=== PATIENT | female | born 1935 | race Caucasian/White ===

== ENCOUNTER 2017-09-29 17:42 | Emergency (ER) | payer MEDICARE, OTHER, SELFPAY ==
[2017-09-29 17:43] VITALS: BP 149/72; PULSE 95; RESP 16; TEMP 36.7; O2SAT 94; BMI 25.9
--- NOTE | 2017-09-29 19:54 | CT_ITS ---
STUDY: CT ABDOMEN AND PELVIS WITHOUT CONTRAST REASON FOR EXAM: Female, 82 years old. Nausea, vomiting and diarrhea. RADIATION DOSAGE (If Supplied By Facility): CTDIvol = ( 8.50 ) mGy, DLP = ( 420.39 ) mGycm TECHNIQUE: Transaxial images were obtained from the dome of the diaphragm to the symphysis pubis without oral contrast, and without intravenous contrast. Sagittal and coronal images were reconstructed. Individualized dose optimization techniques were used for this CT. COMPARISON: None. FINDINGS: The visualized lung bases are unremarkable. There are coronary artery calcifications present. Normal liver. There is non-visualization of the gallbladder, which may be secondary to either contraction or a prior cholecystectomy. Normal spleen. Normal pancreas. Normal bilateral adrenal glands. Normal right kidney. Normal left kidney. Normal visualized stomach. Normal small intestine. There are multiple colonic diverticula consistent with diverticulosis. There is non-visualization of the appendix. There is diffuse atherosclerotic calcification of the abdominal aorta, without a demonstrated aneurysm. Normal inferior vena cava. Normal retroperitoneum. Normal urinary bladder. Normal abdominal wall. There are diffuse degenerative changes of the visualized lumbar spine. CT/Abdomen/Pelvis without Cont IMPRESSION: Colonic diverticulosis is evidence of diverticulitis. Atherosclerosis. Electronically Signed: Carmina Wolf MD at 20:48 EDT Tel , Service support ,
--- NOTE | 2017-09-29 19:56 | ED.DCSUM_ITS ---
- ER Visit Summary Date of Service: 09/29/17 Chief Complaint: Vomiting and diarrhea History of Present Illness: The patient is a 82 F who presents for 2 days of vomiting and diarrhea. Patient states every time she takes in any oral intake, including water, she has vomiting and/or diarrhea. She is unable to eat or drink for several hours because of this. She was evaluated by her doctor and sent in for concern for dehydration. Patient denies any abdominal pain, chest pain or shortness of breath. No fever. Decreased urine output. History of cholecystectomy but otherwise denies any abdominal surgeries. Physical Examination: Vital signs: afebrile, hemodynamically stable, no hypoxia on room air General: well nourished, well developed, in no distress Skin: warm, dry, no rash, no pallor HEENT: normocephalic and atraumatic; PERRL, EOMI, moist mucous membranes Cardiovascular: regular rate and rhythm without murmurs, no peripheral edema, 2 + pulses all distal extremities Respiratory: No increased work of breathing, lungs are clear to auscultation bilaterally, no rales, rhonchi or wheezing Abdominal: Abdomen is soft, nontender with normoactive bowel sounds, no guarding or rebound, no masses MSK: Moves all extremities, no deformities, normal strength Neuro: Awake and alert, oriented ?4. No facial droop, sensation and motor function intact and symmetric Test Results: Abnormal Lab Results 09/29/17 09/29/17 09/29/17 19:30 19:30 20:05 WBC 5.5 RBC 4.58 Hgb 13.8 Hct 43.3 MCV 94.5 MCH 30.1 MCHC 31.9 L RDW 13.5 RDW Differential 46.6 H Plt Count 212 MPV 11.2 Immature Gran % (Auto) 0.200 Neut % (Auto) 64.5 Lymph % (Auto) 17.4 L [place] % (Auto) 17.2 H Eos % (Auto) 0.5 Baso % (Auto) 0.2 Absolute Neuts (auto) 3.6 Absolute Lymphs (auto) 0.96 Total Counted Not Reportable Sodium 139 Potassium 3.2 L Chloride 103 Carbon Dioxide 26.0 Anion Gap 10 BUN 26 H Creatinine 0.93 Estim Creat Clear Calc 42.69 Est GFR (MDRD) Af Amer 74 Est GFR (MDRD) Non-Af 61 BUN/Creatinine Ratio 27.8 H Glucose 91 Lactic Acid 1.3 Calcium 8.2 L Total Bilirubin 0.80 AST 25 ALT 21 Alkaline Phosphatase 79 Total Protein 6.5 Albumin 3.3 Globulin 3.2 Albumin/Globulin Ratio 1.0 Lipase 54 L Urine Color Urine Clarity Urine pH Ur Specific [place] Urine Protein Urine Glucose (UA) Urine Ketones Urine Occult Blood Urine Nitrite Urine Bilirubin Urine Urobilinogen Ur Leukocyte Esterase Urine RBC Urine WBC Ur Squamous Epith Cells Urine Bacteria Urine Mucus 09/29/17 21:00 WBC RBC Hgb Hct MCV MCH MCHC RDW RDW Differential Plt Count MPV Immature Gran % (Auto) Neut % (Auto) Lymph % (Auto) [place] % (Auto) Eos % (Auto) Baso % (Auto) Absolute Neuts (auto) Absolute Lymphs (auto) Total Counted Sodium Potassium Chloride Carbon Dioxide Anion Gap BUN Creatinine Estim Creat Clear Calc Est GFR (MDRD) Af Amer Est GFR (MDRD) Non-Af BUN/Creatinine Ratio Glucose Lactic Acid Calcium Total Bilirubin AST ALT Alkaline Phosphatase Total Protein Albumin Globulin Albumin/Globulin Ratio Lipase Urine Color Yellow Urine Clarity Clear Urine pH 6.0 Ur Specific [place] 1.020 Urine Protein 15 H Urine Glucose (UA) Normal Urine Ketones 150 H Urine Occult Blood 25 H Urine Nitrite Negative Urine Bilirubin Negative Urine Urobilinogen Normal Ur Leukocyte Esterase 500 H Urine RBC 0-5 SEEN Urine WBC 0-5 SEEN Ur Squamous Epith Cells 0-5 SEEN Urine Bacteria 0 SEEN Urine Mucus 1+ Emergency Department Course and Treatment: Patient was given IV fluids. Workup was performed given her age and abdominal complaint to look for any acute pathology. CT scan of the abdomen and pelvis showed no acute findings. Patient had no leukocytosis, no electrolyte derangements, but did have BUN to creatinine ratio consistent with dehydration. Patient also had ketones in her urine. No evidence of UTI. Lactate normal. After IV fluids patient was feeling better and was given a p.o. challenge. She was able to tolerate fluids without any episodes of vomiting or diarrhea. She felt better and was discharged home in improved condition. Treatment Plan: [] Disposition: [] Impression: Dehydration, vomiting and diarrhea illness This note was generated with [employer] dictation software. It may contain incorrect words, spelling, and punctuation that were not noted in review of the chart prior to signing ED Disposition - Plan for ED Patient: Disposition: Home or Assisted Living Chief Complaint: Nausea/Vomiting/Diarrhea Instructions: ED Dehydration, ED Diet Vomiting Diarrhea Prescriptions: Ondansetron [Zofran Odt] 4 mg PO Q8H PRN PRN #10 tab PRN Reason: Nausea Referrals: Bang Manriquez MD [Primary Care Provider] - 1-2 Days if not improving Additional Instructions: You may use the ondansetron as needed for nausea and vomiting. Please drink plenty of fluids to stay hydrated. If you have any worsening of your symptoms, please see your doctor or return to the emergency department immediately for another evaluation.
[2017-09-29] MEDS: 0.9% Normal Saline 1,000 ML 1000 ML IV (20:03)
[2017-09-29 20:04] VITALS: BP 128/69; PULSE 84; RESP 16; O2SAT 95
[2017-09-29 20:39] LABS: Absolute Lymphocyte Count 0.96 X10^3/ul (0.83-4.51); Absolute Neutrophil Count 3.6 X10^3/uL (2.0-7.7); Basophil# 0.01 X10^3/uL; Basophil% 0.2 % (0-1); Eosinophil# 0.03 X10^3/uL; Eosinophils% 0.5 % (0-5); Hematocrit 43.3 % (37-47); Hemoglobin 13.8 g/dl (12.0-15.0); Lymphocyte # 0.96 X10^3/ul (4.0); Lymphocyte % 17.4 % (19-41); Mean Corp Hgb Conc 31.9 g/gl (32-36); Mean Corpuscular Hgb 30.1 pg (27.0-32.0); Mean Corpuscular Volume 94.5 fL (81-99); Mean Platelet Vol. 11.2 fl (6.2-12.0); Monocyte# 0.95 X10^3/uL; Monocyte% 17.2 % (0-10); Neutrophil # 3.56 X10^3/uL (2.7-7.7); Neutrophil % 64.5 % (47-70); Platelet Count 212 K/mm3 (150-450); RBC Distribution Width CV 13.5 % (11.6-14.6); RBC Distribution Width SD 46.6 fl (35.1-43.9); Red Blood Count 4.58 M/mm3 (4.2-5.4); White Blood Count 5.5 K/mm3 (4.4-11.0)
[2017-09-29 20:42] LABS: POSITIVE COUNT NO; POSITIVE DIFFERENTIAL NO; POSITIVE MORPHOLOGY NO
[2017-09-29 20:47] LABS: AST(SGOT) 25 U/L (15-37); Alanine Aminotransfer ALT/SGPT 21 U/L (13-56); Albumin, Serum 3.3 g/dL (3.2-5.0); Alkaline Phosphatase 79 U/L (45-117); Anion Gap 10 (5-15); BUN 26 mg/dL (7-18); BUN/Creat Ratio 27.8 RATIO (10-20); Calcium,Total 8.2 mg/dL (8.5-10.1); Chloride 103 mmol/L (98-107); Creatinine, Serum 0.93 mg/dL (0.55-1.02); EST Glomerular Filtration Rate 61 mL/min (>60); Est Glom Filt Rate - Afr Amer 74 mL/min (>60); Estimated Creatinine Clearance 42.69 ml/min; Globulin 3.2 g/dL (2.2-4.2); Glucose 91 mg/dL (74-106); Lipase 54 U/L (73-393); Potassium 3.2 mmol/L (3.5-5.1); Protein, Total 6.5 g/dL (6.4-8.2); Sodium Level 139 mmol/L (136-145)
[2017-09-29 20:56] LABS: Lactic Acid 1.3 mmol/L (0.4-2.0)
[2017-09-29 21:06] LABS: Bacteria 0 SEEN /hpf (None Seen)
[2017-09-29 21:07] LABS: Color, Urine Yellow (Yellow); Glucose, Dipstick Normal (Normal); Leukocyte Esterase-Dipstick 500 /ul (Negative); Nitrite-Dipstick Negative (Negative); Occult Blood-Urine 25 /ul (Negative); Protein-Dipstick 15 mg/dl (Negative); Urine Bilirubin Dipstick Negative (Negative); Urine Clarity Clear (Clear); Urine Urobilinogen Normal (Normal)
[2017-09-29 21:12] LABS: Ketone-Dipstick 150 mg/dl (Negative)
[2017-09-29 21:16] LABS: Mucous, Urine 1+ /hpf (<or=2+); Red Blood Cells-Urine 0-5 SEEN /hpf (0-5); Squamous Epithelial Cells - UA 0-5 SEEN /hpf (5-10); White Blood Cells 0-5 SEEN /hpf (0-5)
[2017-09-29 22:05] VITALS: BP 148/68; PULSE 89; RESP 16; O2SAT 93
--- NOTE | 2017-09-29 22:21 | ED.DEP ---
ED Disposition - Plan for ED Patient: Disposition: Home or Assisted Living Chief Complaint: Nausea/Vomiting/Diarrhea Instructions: ED Diet Vomiting Diarrhea, ED Dehydration Prescriptions: Ondansetron [Zofran Odt] 4 mg PO Q8H PRN PRN #10 tab PRN Reason: Nausea Referrals: Bang Manriquez MD [Primary Care Provider] - 1-2 Days if not improving Additional Instructions: You may use the ondansetron as needed for nausea and vomiting. Please drink plenty of fluids to stay hydrated. If you have any worsening of your symptoms, please see your doctor or return to the emergency department immediately for another evaluation.
== END 2017-09-29 22:34 | disposition home or self-care (01) ==
PROVIDERS: Emergency Provider Emergency Medicine; Family Provider Family Medicine; PCP Family Medicine
DX: K52.9 Noninfective gastroenteritis and colitis, unspecified (principal); E86.0 Dehydration; R11.2 Nausea with vomiting, unspecified; Z79.899 Other long term (current) drug therapy
CPT/HCPCS: 74176; 80053; 81001; 83605; 83690; 85025; 87077; 87086; 87088; 87186; 96360; 99284; A4216

== ENCOUNTER → 2018-11-17 | Outpatient (CLI) | payer MEDICARE, OTHER, SELFPAY ==
--- NOTE | 2018-11-17 10:55 | ART_ITS ---
Reason For Study: PVD Procedure A bilateral lower extremity continuous wave Doppler with analog waveform analysis,segmental pressures,and ankle brachial indexes without exercise. Left Segmental Pressures Left brachial= 174mmHg. Left posterior tibial artery = 181mmHg. Left dorsalis pedis artery = 166mmHg. The left dorsalis pedis waveforms are triphasic. The left posterior tibial artery waveforms are triphasic. Right Segmental Pressures Right brachial= 172mmHg. Right posterior tibial artery = 186mmHg. Right dorsalis pedis artery = 181mmHg. The right dorsalis pedis waveforms are triphasic. The right posterior tibial artery waveforms are triphasic. Indices The right ankle brachial index by the dorsalis pedis is 1.04. The right ankle brachial index by the posterior tibial artery is 1.07. The left ankle brachial index by the dorsalis pedis is 0.95. The left ankle brachial index by the posterior tibial artery is 1.04. Interpretation Summary Triphasic Doppler waveforms are noted at ankle level bilaterally. Pulse-volume recording waveform amplitudes are satisfactory at all levels bilaterally, including low-thigh, calf, ankle, and digital levels. Resting ankle-brachial indices are normal bilaterally. There is no evidence of significant arterial occlusive disease in the lower extremities bilaterally. Ordering Physician: Zora Borja Referring Physician: Bang Manriquez Performed By: Clary Baca RVMelanie
--- NOTE | 2018-11-17 10:55 | VDLE_ITS ---
Reason For Study: PVD RIGHT LEFT CFV is compressible, spontaneous, phasic, CFV is compressible, spontaneous, phasic, competent and demonstrates normal competent, and demonstrates normal augmentation. augmentation. FV is compressible, spontaneous, phasic, FV is compressible, spontaneous, phasic, competent and demonstrates normal competent and demonstrates normal augmentation. augmentation. POP V is compressible, spontaneous, phasic, POP V is compressible, spontaneous, phasic, competent and demonstrates normal competent and demonstrates normal augmentation. augmentation. T/P Trunk is compressible. T/P Trunk is compressible. PTV is compressible. PTV is compressible. RT PerV is compressible. LT PerV is compressible. SFJ is competent. SFJ is competent. GSV is competent. GSV above knee is competent. SSV is competent. GSV below knee is INCOMPETENT for greater Procedure than 0.5 seconds and measures 0.14 x 0.17. Exam performed in department. SSV is competent. Interpretation Summary Deep veins of the lower extremities are bilaterally patent and compressible segmentally. There is no evidence of deep vein thrombosis on either side. Valvular competence appears intact within the proximal deep venous systems bilaterally. The greater saphenous veins appear bilaterally patent and compressible segmentally. Sapheno-femoral junctions are bilaterally competent . The right greater saphenous vein appears segmentally competent. The left greater saphenous vein appears competent above the knee. The left greater saphenous vein appears incompetent below the knee. Small saphenous veins are patent and competent bilaterally. Ordering Physician: Zora Borja Referring Physician: Bang Manriquez Performed By: Clary Baca RVT
== END | disposition home or self-care (01) ==
LOC: CVS 10:53
PROVIDERS: Family Provider Family Medicine; PCP Family Medicine; Referring Provider Podiatrist; Visit Provider Podiatrist
DX: I73.9 Peripheral vascular disease, unspecified (principal); M62.81 Muscle weakness (generalized); R60.0 Localized edema; I87.2 Venous insufficiency (chronic) (peripheral)
CPT/HCPCS: 93923; 93970

== ENCOUNTER 2019-08-31 11:00 | Outpatient (RCR) | payer MEDICARE, OTHER, SELFPAY ==
[2019-08-05 10:05] VITALS: BMI 25.9
--- NOTE | 2019-08-06 09:56 | HP.PTEVAL_ITS ---
Patient's Visit Information MARSHALL WU is a 84 year old F referred to Physical Therapy by SILAS Vilchis with a diagnosis of L shoulder rotator cuff tear and LHB tear. Date of Evaluation: 08/06/19 Physical Therapist: Angel Salas, PT, ATC - Visit Plan Frequency: 2x /Week Duration: 1 Week Plan: Issue and instruct on HEP for L rotator cuff strengthening and scap stab ex's. US for pain - Subjective Findings: Pt reports she injured her L shoulder while exercising approximately 2 weeks ago. Pt reports she increased her weights at that time. Pt reports she experienced a popping sensation in her L shoulder at that time which resulted in sig pain. Pt reports she went to the Dr at that time and received xrays and MRI. Pt reports it was revealed that she has a tear in the rotator cuff and LHB tendon. Pt reports she was given s steroid pack which has helped a lot. Pt reports she is doing much better at this time. Pt is R UE dominant. Pt notes Occasional sleep difficulty secondary to pain. Pt reports she is limited with overhead lifting and has difficulty with most IADL's secondary to pain and limited ROM. L shoulder pain 0/10 pain at rest, 4/10 pain with reaching ot to her side. - Pain L shoulder pain Pain Intensity (Out of 10): 0 Pain Intensity Range: 4 - Objective Neuro: B UE sensation is WNL to light touch. B bicepital reflex= 2/3. Palpation: Pt is very sore along the distribution of the supraspinatus and LHB tendons. No obvious deformity present. ROM: R shoulder flex= 160, abd= 160, ER= 60, IR WNL; L shoulder flex= 70, abd= 65, ER= 10, IR moderately limited. MMT: L shoulder 2/5 and painful - Goals Goal 1:: I with HEP Goal Time Frame: 2 Weeks - Rehabilitation Potential Physical Therapy Diagnosis: Pt has L shoulder pain, weakness, and limited ROM secondary to L shoulder rot cuff and LHB tendon tears. Rehabilitation Potential: Good - Anticipated Interventions Patient/Client Instruction: Educate patient on: Condition, Plan of Care For the Purpose of:: To improve self management Therapeutic Exercise to Include: Strength training, Endurance training, Flexi bilty training, Passive ROM, Active ROM, Scapular Strength/Stabilization For the Purpose of:: To decrease pain, To increase ROM, To improve muscle performance and motor function Cryotherapy (ice pack, ice massage): Yes Ultrasound (thermal/non thermal): Yes For the Purpose of:: To decrease pain Thank you for the opportunity to evaluate your patient. For Medicare and Medicare HMO plans, please review the plan of care and approve it. It will need to be FAXED BACK to us at [phone] for Medicare purposes. For Medicare only, by signing this I certify the plan of care. Please let me know if there are questions or concerns regarding this plan of c are. Physician Signature: Date:
--- NOTE | 2019-10-14 18:35 | HP.PTDCSUM ---
It has been my pleasure to treat MARSHALL WU referred by SILAS Vilchis, with the diagnosis of L shoulder rotator cuff tear and LHB tear for a total of 4 visit(s). Discharge Date: Please see the following information for a summary of their discharge status. Subjective: No pain this date L shoulder pain Pain Intensity (Out of 10): 0 % Improvement: 60 Objective/Function: L shoulder pain 0/10. L shoulder ROM: flex= 93, abd= 65, ER= 5 degrees. L shoulder MMT: ER= 4-/5, all other 4/5 throughout. Pt is I with HEP Goal 1:: I with HEP Goal Progress: Goal Met Plan: Discharge If there are questions or concerns regarding this patient's physical therapy, please feel free to call me at [phone]. Thank you for the referral of this patient. Sincerely, Angel Salas, PT, ATC
== END 2019-08-31 19:00 | disposition home or self-care (01) ==
LOC: PT 11:00
PROVIDERS: PCP Family Medicine; Referring Provider Physician Assistant; Visit Provider Physician Assistant
DX: M75.102 Unspecified rotator cuff tear or rupture of left shoulder, not specified as traumatic (principal); M75.22 Bicipital tendinitis, left shoulder
CPT/HCPCS: 97035; 97110; 97161; 97164

== ENCOUNTER 2020-02-14 09:49 | Emergency (ER) | payer MEDICARE, OTHER, SELFPAY ==
[2019-12-17 15:09] VITALS: BMI 25.9
[2020-02-14 09:51] VITALS: BP 170/83; PULSE 108; RESP 17; TEMP 36.4; O2SAT 95; BMI 25.2
--- NOTE | 2020-02-14 10:03 | EKG12_ITS ---
Test Reason : BACK PAIN Blood Pressure : / mmHG Vent. Rate : 086 BPM Atrial Rate : 086 BPM P-R Int : 154 ms QRS Dur : 094 ms QT Int : 374 ms P-R-T Axes : 062 -13 044 degrees QTc Int : 447 ms Normal sinus rhythm Normal ECG Confirmed by CLAUDIO SMITH, RADHA ([id number]), video tape editor CHRISTOPHER HILL ([id number]) on 02/16/2020 10:53:07 AM Referred By: BRITTANY Confirmed By:RADHA SNYDER MD
--- NOTE | 2020-02-14 10:04 | CT_ITS ---
STUDY: CTA CHEST REASON FOR EXAM: Female, 84 years old. LT UPPER BACK PAIN, INCREASED BP RADIATION DOSAGE (If Supplied By Facility): CTDIvol = ( 10.45 ) mGy, DLP = ( 359.85 ) mGycm TECHNIQUE: The examination was performed with the intravenous administration of 100 CC ISOVUE 370. Post-processing of the angiographic images was performed, with multiplanar reformation and 3D reconstruction. Individualized dose optimization techniques were used for this CT. COMPARISON: None. FINDINGS: Normal enhancement of the main pulmonary artery and right and left pulmonary arteries. Normal enhancement of the bilateral peripheral pulmonary arteries. There is no demonstrated pulmonary embolism. There is atherosclerotic calcification of the aortic arch with tortuosity. There is no demonstrated aortic dissection. There are calcifications of the coronary arteries. Normal mediastinum. Normal hilar regions. Normal visualized trachea and bronchi. Hyperinflation. Emphysematous changes with bullous formation more prominent in the upper lobes. Normal pleura. Normal chest wall structures. There are degenerative changes of thoracic spine. Increased kyphosis. Moderate sized hiatal hernia. CT/CTA Chest W/WO Contrast IMPRESSION: There is no evidence of pulmonary embolism. Emphysematous changes and bullous formation in the upper lobes. Electronically Signed: Grayson Jacobs, at 11:31 EDT , Service support ,
--- NOTE | 2020-02-14 10:05 | ED.DCSUM_ITS ---
History of Present Illness Chief Complaint: Back Informant: Patient Onset: Yesterday Context: Gradual Onset Current Severity: Moderate Maximum Severity: Moderate Narrative: Patient presents with pain to her upper back. Patient is currently doing physical therapy for left rotator cuff injury. She states she did do her exercises yesterday but is not remember an injury. Last evening she noted some tightness that worsened throughout the night. Pain does not radiate down her arm. She also notes problems with her blood pressure being elevated for the past week. - Past Medical History (1) Hypertension Status: Chronic (2) High cholesterol Status: Chronic (3) GERD (gastroesophageal reflux disease) Status: Chronic Past Medical History - Allergies and Home Meds Allergies/Adverse Reactions: Allergies ciprofloxacin [From Cipro] Allergy (Verified 02/14/20 09:51) decreased muscle strength Primary Care Physician: Bang Manriquez MD [Primary Care Provider] - Prior records reviewed: Yes Smoking Status: Never smoker Review of Systems General: Denies: Chills, Fever Eyes: Denies: Visual changes - bilaterally ENT: Denies: Bilateral ear pain Cardiovascular: Denies: Chest pain Respiratory: Denies: Dyspnea, Cough Genitourinary: Denies: Dysuria Musculoskeletal: Reports: Back pain Skin: Denies: Rash Neurological: Denies: Headache Hematologic: Denies: Easy bruising, Easy bleeding Allergy: Denies: Uticaria Physical Exam Vital Signs/Narrative: Vital Signs Temp Pulse Resp BP Pulse Ox 02/14/20 09:51 97.5 F L 108 H 17 170/83 H 95 Inital Vital Signs reviewed: Yes Head: Normocephalic ENT: Moist mucous membranes Neck: Supple Cardiovascular: Regular rate, Regular rhythm Respiratory: No distress, CTA bilaterally Abdomen: Soft, Nontender Back: - - Patient has tenderness in the left upper back, just medial to the scapula. No overlying skin change or rash. Skin: Normal color Neurological: Alert, Oriented x3, Normal Strength, Normal Sensation Psychological: Normal affect Diagnostic/Tx/Re-eval Impressions Chest CTA 02/14/20 10:04 IMPRESSION: There is no evidence of pulmonary embolism. Emphysematous changes and bullous formation in the upper lobes. Electronically Signed: Grayson Jacobs, at 11:31 EDT , Service support , 02/14/20 10:04 CTA Chest W/WO Contrast [CT] Stat Laboratory Results 02/14/20 02/14/20 10:43 10:43 WBC 6.5 RBC 4.40 Hgb 13.6 Hct 41.7 MCV 94.8 MCH 30.9 MCHC 32.6 RDW Std Deviation 45.0 H RDW Coeff of [place] 13.0 Plt Count 203 MPV 10.6 Immature Gran % (Auto) 0.500 Neut % (Auto) 74.1 H Lymph % (Auto) 14.6 L [place] % (Auto) 8.9 Eos % (Auto) 1.1 Baso % (Auto) 0.8 Absolute Neuts (auto) 4.8 Absolute Lymphs (auto) 0.95 Nucleated RBC % 0 Sodium 141 Potassium 3.3 L Chloride 107 Carbon Dioxide 30.0 Anion Gap 4 L BUN 12 Creatinine 0.78 Estim Creat Clear Calc 38.36 Est GFR (MDRD) Af Amer 90 Est GFR (MDRD) Non-Af 75 BUN/Creatinine Ratio 15.3 Glucose 106 Calcium 8.7 - EKG Initial EKG Interpretation: Sinus Rhythm - Sinus 86 with no acute ischemia. - Medical Decision Making Patient was given naproxen and a Lidoderm patch. She was offered something stronger for pain and declined. Test results are discussed with her. I do believe her pain is musculoskeletal in nature. She will continue Tylenol or naproxen at home. She will be given a prescription for Lidoderm patches. ED Disposition - Plan for ED Patient: Disposition: Home or Assisted Living Diagnosis: Musculoskeletal back pain Instructions: ED Back Pain Acute or Chronic Prescriptions: Lidocaine [Lidoderm Patch] 1 patch TOPICAL BID PRN #6 patch PRN Reason: Pain Score 4-10/10 Transmission Status: Pending to [id number] Referrals: Bang Manriquez MD [Primary Care Provider] - 3-5 Days if not improving
--- NOTE | 2020-02-14 10:09 | NURSING ---
NO OLD EKGS
[2020-02-14] MEDS: Naproxen 375 MG Tablet PO (10:30)
[2020-02-14] MEDS: Lidocaine 5% Patch 1 PATCH TOPICAL (10:30)
[2020-02-14 10:47] VITALS: BP 167/61; PULSE 84; RESP 14; TEMP 36.6; O2SAT 97
[2020-02-14 10:52] LABS: Absolute Lymphocyte Count 0.95 X10^3/uL (0.83-4.51); Absolute Neutrophil Count 4.8 X10^3/uL (2.0-7.7); Basophil# 0.05 X10^3/uL; Basophil% 0.8 % (0-1); Eosinophil# 0.07 X10^3/uL; Eosinophils% 1.1 % (0-5); Hematocrit 41.7 % (37-47); Hemoglobin 13.6 g/dL (12.0-15.0); Lymphocyte # 0.95 X10^3/ul (4.0); Lymphocyte % 14.6 % (19-41); Mean Corp Hgb Conc 32.6 g/dL (32-36); Mean Corpuscular Hgb 30.9 pg (27.0-32.0); Mean Corpuscular Volume 94.8 fL (81-99); Mean Platelet Vol. 10.6 fl (6.2-12.0); Monocyte# 0.58 X10^3/uL; Monocyte% 8.9 % (0-10); NRBC Flagged by Analyzer 0 % (0-5); Neutrophil # 4.82 X10^3/uL (2.7-7.7); Neutrophil % 74.1 % (47-70); Platelet Count 203 K/mm3 (150-450); White Blood Count 6.5 K/mm3 (4.4-11.0)
[2020-02-14 11:06] LABS: Anion Gap 4 (5-15); BUN 12 mg/dL (7-18); BUN/Creat Ratio 15.3 RATIO (10-20); Calcium,Total 8.7 mg/dL (8.5-10.1); Chloride 107 mmol/L (98-107); Creatinine, Serum 0.78 mg/dL (0.55-1.02); EST Glomerular Filtration Rate 75 mL/min (>60); Est Glom Filt Rate - Afr Amer 90 mL/min (>60); Estimated Creatinine Clearance 38.36 ml/min; Glucose 106 mg/dL (74-106); Potassium 3.3 mmol/L (3.5-5.1); Sodium Level 141 mmol/L (136-145)
[2020-02-14 12:14] VITALS: PULSE 92; RESP 18; O2SAT 93
== END 2020-02-14 12:15 | disposition home or self-care (01) ==
PROVIDERS: Emergency Provider Emergency Medicine; PCP Family Medicine
DX: M54.6 Pain in thoracic spine (principal); I10 Essential (primary) hypertension; E78.00 Pure hypercholesterolemia, unspecified; K21.9 Gastro-esophageal reflux disease without esophagitis
CPT/HCPCS: 71275; 80048; 85025; 93005; 99285; Q9967

== ENCOUNTER → 2020-02-25 | Outpatient (CLI) | payer MEDICARE, OTHER, SELFPAY ==
[2020-02-25 14:29] VITALS: BMI 25.2
--- NOTE | 2020-02-25 14:50 | RAD_ITS ---
STUDY: X-RAY - THORACIC SPINE REASON FOR EXAM: Female, 84 years old. PAIN IN SHOULDER BLADE AREA, NKI TECHNIQUE: 3 view(s) of the thoracic spine were obtained. COMPARISON: None. FINDINGS: Normal kyphosis of the thoracic spine. There is a mild thoracolumbar dextroscoliosis. There is demineralization of the thoracic spine with endplate spondylosis. Normal disc space heights. The soft tissue structures are unremarkable. RAD/Thoracic Spine 3 Views IMPRESSION: Generalized osteopenia. Diffuse endplate spondylosis of the thoracic spine. There are calcified plaques of the visualized thoracic and abdominal aorta. Electronically Signed: Jeff Mckeon MD at 16:57 EDT , Service support ,
== END | disposition home or self-care (01) ==
LOC: HPRAD 14:48
PROVIDERS: PCP Family Medicine; Referring Provider Physician Assistant; Visit Provider Physician Assistant
DX: M79.602 Pain in left arm (principal)
CPT/HCPCS: 72072

== ENCOUNTER 2020-03-28 15:00 | Outpatient (RCR) | payer MEDICARE, OTHER, SELFPAY ==
[2020-02-25 14:29] VITALS: BMI 25.2
--- NOTE | 2020-03-02 08:06 | HP.PTEVAL_ITS ---
Patient's Visit Information MARSHALL WU is a 84 year old F referred to Physical Therapy by SILAS Vilchis with a diagnosis of L rhomboid, levator scapulea strain. Date of Evaluation: 03/01/20 Physical Therapist: Magdy Tinajero DPT - Visit Plan Frequency: 2-3x /Week Duration: 4 Weeks Plan: Start with DFM/trigger point release of L rhomboid/levatot scap. US to same region. Add in stretching if rhoboids and levator scap as well. Progress HEP to allow for strengthening/stability of shoulder without increase in symptoms. - Subjective Pt. is here today for her initial evaluation with diagnosis of L rhomboid strain with possible levator scapulea involvement. Pt. reports a night last week she was having so much L sided shoulder/scapulear pain that she went to ER. Pt. was checked out and no sinister pathology. Pt. was diagnosed with soft tissue strain. She followed with SILAS Hernandez who diagnosed her with a rhomboid/levator scap strain. She had been working in the gym strengthening her L shoulder after having a L RTC tear. She was focusing on a lot of mid trap/rhomboid strengthening with rowing. Pt. believes she might have over done it with these exercises. Pt. denies N/T and has pain localized to the medial boarder of her L scapulea. Pt. is an avid golfer and would like to get back to golfing DEISY. - Pain Medial boarder of L scapulea Pain Intensity (Out of 10): 2 Pain Intensity Range: 0, 6 - Objective POSTURE: Pt. has decent posture in stance. Slight rounded shoulders and keeps L arm in guarded positioning at her side. PALPATION: Pt. has no pain throughout L subacromial space. Pt has minmal pain through upper trap, increased tenderness at levator scapulea insertion, mid trap insertion as well. Pt. has no pain with palpation of her neck. NEURO: pt. has normal sensation and DTR of bilateral UEs. ROM: PT. has limited L shoulder ROM secondary to being RTC deficient. L shoulder flexion- 100deg, abd 75deg, ER 5 deg, IR 60deg. (functional ER external auditory meatus with aberrant motion, functional IR L 1 NE). MMT: R shoulder 5- /5 throughout. L shoulder- flexion 4/5, abd 4-/5, ext 5-/5, ER 4-/5, IR 4+/5. Rhomboids 4/5 increase NE, mid trap 4/5 increase NW. - Goals Goal 1:: LTG: Pt. to be I with HEP. Goal Time Frame: 4-6 Weeks Goal 2:: LTG: Pt. to resume all golfing without increase in symptoms or limitations. Goal Time Frame: 4-6 Weeks Goal 3:: STG: Pt. to have decreasd rhomboid/levator scapulea pain to 0-2/10 at rest allowing for incrased quality of life. Goal Time Frame: 2-4 Weeks Goal 4:: LTG: Pt. to have to pain with with available ROM of L shoulder. Goal Time Frame: 2-4 Weeks - Rehabilitation Potential Physical Therapy Diagnosis: Pt. has signs and symptoms consistent with L rhomboid/levator scapulea strain, most likely due to very limited ER strength thus compensating with mid trap/rhomboids. Pt. had been doing a significant amount of rowing exercise at gym as well. Pt. would benefit from PT to work on Rehabilitation Potential: Good - Anticipated Interventions Patient/Client Instruction: Educate patient on: Condition, Plan of Care, Risk Factors, Benefits of Fitness Program For the Purpose of:: To improve decision making, To facilitate caregiver knowledge, To improve self management, To prevent re-injury, To improve ability to perform tasks related to life management, To improve tolerance to ADL's Therapeutic Exercise to Include: Strength training, Power training, Body mechanics, Postural training, Flexibilty training, Passive ROM, Active ROM, Scapular Strength/Stabilization For the Purpose of:: To decrease pain, To decrease swelling/inflammation, To increase ROM, To improve nutrient delivery to tissue, To increase oxygenation perfusion, To improve muscle performance and motor function, To improve health of tissue, To decrease soft tissue restriction, To increase flexibility/ROM Manual Therapy Techniques to Include: Mobilization, Passive ROM, Soft tissue mobilization For the Purpose of:: To decrease pain, To decrease swelling/inflammation, To increase ROM, To improve nutrient delivery to tissue, To increase oxygenation perfusion Ultrasound (thermal/non thermal): Yes For the Purpose of:: To decrease pain, To decrease swelling/inflammation, To increase ROM, To improve nutrient delivery to tissue Thank you for the opportunity to evaluate your patient. For Medicare and Medicare HMO plans, please review the plan of care and approve it. It will need to be FAXED BACK to us at [phone] for Medicare purposes. For Medicare only, by signing this I certify the plan of care. Please let me know if there are questions or concerns regarding this plan of care. Physician Signature: Date:
== END 2020-03-28 19:00 | disposition home or self-care (01) ==
LOC: PT 15:00
PROVIDERS: PCP Family Medicine; Referring Provider Physician Assistant; Visit Provider Physician Assistant
DX: S46.812D Strain of other muscles, fascia and tendons at shoulder and upper arm level, left arm, subsequent encounter (principal)
CPT/HCPCS: 97014; 97035; 97110; 97140; 97161; G0283

== ENCOUNTER 2020-08-03 11:00 | Outpatient (RCR) | payer MEDICARE, OTHER, SELFPAY | END 2020-08-03 23:59 | LOC: IMMUN 11:00 | PROVIDERS: PCP Family Medicine; Visit Provider Family Medicine | DX: Z23 Encounter for immunization (principal) | CPT/HCPCS: 0011A; 0012A; 91301 ==

== ENCOUNTER → 2020-08-30 09:55 | Outpatient (CLI) | payer MEDICARE, OTHER, SELFPAY ==
[2020-08-29 13:08] VITALS: BMI 28.0
[2020-08-30 12:26] LABS: Vitamin B12 390 pg/mL (211-911)
[2020-08-30 12:56] LABS: ALB/GLOB Ratio 1.1 RATIO (0.9-2.4); AST(SGOT) 15 U/L (15-37); Alanine Aminotransfer ALT/SGPT 21 U/L (13-56); Albumin, Serum 3.6 g/dL (3.2-5.0); Alkaline Phosphatase 121 U/L (45-117); Anion Gap 4 (5-15); BUN 16 mg/dL (7-18); BUN/Creat Ratio 24.3 RATIO (10-20); Calcium,Total 9.1 mg/dL (8.5-10.1); Chloride 104 mmol/L (98-107); Creatinine, Serum 0.66 mg/dL (0.55-1.02); EST Glomerular Filtration Rate 91 mL/min (>60); Est Glom Filt Rate - Afr Amer 110 mL/min (>60); Globulin 3.3 g/dL (2.2-4.2); Glucose 81 mg/dL (74-106); Potassium 3.6 mmol/L (3.5-5.1); Protein, Total 6.9 g/dL (6.4-8.2); Sodium Level 140 mmol/L (136-145); Thyroid Stim Hormone (TSH) 1.69 uIU/mL (0.358-3.74)
[2020-08-31 20:10] LABS: Free Kappa Light Chains 23.9 mg/L (3.3-19.4); Free Lambda Light Chains 19.2 mg/L (5.7-26.3)
== END ==
PROVIDERS: PCP Family Medicine; Referring Provider Psychiatry & Neurology Neurology; Visit Provider Psychiatry & Neurology Neurology
DX: I10 Essential (primary) hypertension (principal); G62.9 Polyneuropathy, unspecified
CPT/HCPCS: 36415; 80053; 82607; 82746; 83883; 84443

== ENCOUNTER 2020-09-05 14:00 | Outpatient (RCR) | payer MEDICARE, OTHER, SELFPAY ==
--- NOTE | 2020-08-08 15:14 | HP.PTEVAL ---
Patient's Visit Information MARSHALL WU is a 85 year old F referred to Physical Therapy by Dr. Italia Acevedo DO with a diagnosis of L adhesive capsulitis. Date of Evaluation: 08/08/20 Physical Therapist: Angel Salas, PT, ATC - Visit Plan Frequency: 2-3x /Week Duration: 4 Weeks Plan: Aquatic therapy consisting of L shoulder strengthening (rot cuff), A/PROM, scap stab ex's, and HEP - Subjective Pt reports her L shoulder has been sore for over one year. Pt reports she tore her L rotator cuff, but did not need surgery for that injury. Pt reports she had PT for the injury and was OK, being able to travel to [employer] [place] [employer] and play golf. However, pt notes she fell in April and injured her L shoulder. Pt notes she landed on her L shoulder which resulted in immediate pain. No tingling or numbness in L UE. Pt reports sleep difficulty with out taken meds to sleep. Pt reports she is most limited with overhead activity, and notes pain with trying to reach across her body. 0/10 pain at rest, 3/10 pain at worst. Pt is R hand dominant. - Pain L shoulder Pain Intensity (Out of 10): 0 Pain Intensity Range: 3 - Objective Neuro: B UE sensation is WNL to light touch. B bicepital reflex= 1/3. Palpation: Pt is sore throughout the distribution of her L supraspinatus and LHB tendons. No obvious deformity at this time. ROM: R shoulder flex= 160, abd= 155, ER= 60, IR WNL; L shoulder flex= 85, abd= 50, ER=0, IR minimally limited. MMT: L shoulder is grossly 3-/5 and painful with all testing. R shoulder 4+/5 throughout. SPecial test: Pos empty can and HK impingement tests - Goals Goal 1:: Decrease L shoulder pain x 50% to aid with sleep Goal Time Frame: 4-6 Weeks Goal 2:: Increase L shoulder flex and abd ROM x 30 degrees to aid with overhead lifting Goal Time Frame: 4-6 Weeks Goal 3:: Increase L shoulder strength x 1 grade to aid with ability to return to golfing without limitation Goal Time Frame: 4-6 Weeks Goal 4:: I with HEP Goal Time Frame: 4-6 Weeks - Rehabilitation Potential Physical Therapy Diagnosis: L shoulder pain, weakness, and limited ROM secondary to L shoulder adhesive capsulitis Rehabilitation Potential: Good - Anticipated Interventions Patient/Client Instruction: Educate patient on: Condition, Plan of Care For the Purpose of:: To improve self management Therapeutic Exercise to Include: Strength training, In an aquatic setting, Passive ROM, Active ROM, Scapular Strength/Stabilization For the Purpose of:: To decrease pain, To increase ROM, To improve muscle performance and motor function Cryotherapy (ice pack, ice massage): Yes For the Purpose of:: To decrease pain Thank you for the opportunity to evaluate your patient. For Medicare and Medicare HMO plans, please review the plan of care and approve it. It will need to be FAXED BACK to us at [phone] for Medicare purposes. For Medicare only, by signing this I certify the plan of care. Please let me know if there are questions or concerns regarding this plan of care. Physician Signature: Date:
--- NOTE | 2020-09-05 14:29 | HP.PTDCSUM ---
It has been my pleasure to treat MARSHALL WU referred by Dr. Italia Acevedo DO, with the diagnosis of L adhesive capsulitis for a total of 10 visit(s). Discharge Date: Please see the following information for a summary of their discharge status. Subjective: I am ready to do stuff on my own L shoulder Pain Intensity (Out of 10): 0 % Improvement: 70 Objective/Function: L shoulder pain 0/10. L shoulder ROM: flex= 95, abd= 65, ER= 15, IR WNL. L shoulder MMT: flex and ER= 3+/5, abd and IR 5/5. Pt is I with HEP Goal 1:: Decrease L shoulder pain x 50% to aid with sleep Goal Progress: Goal Met Goal 2:: Increase L shoulder flex and abd ROM x 30 degrees to aid with overhead lifting Goal Progress: Progressing Goal 3:: Increase L shoulder strength x 1 grade to aid with ability to return to golfing without limitation Goal Progress: Goal Met Goal 4:: I with HEP Goal Progress: Goal Met Plan: Discontinue to HEP If there are questions or concerns regarding this patient's physical therapy, please feel free to call me at [phone]. Thank you for the referral of this patient. Sincerely, Angel Salas, PT, ATC
== END 2020-09-05 19:00 | disposition home or self-care (01) ==
LOC: PT 14:00
PROVIDERS: PCP Family Medicine; Referring Provider Orthopaedic Surgery; Visit Provider Orthopaedic Surgery
DX: M75.02 Adhesive capsulitis of left shoulder (principal)
CPT/HCPCS: 97113; 97161; 97164

== ENCOUNTER → 2020-09-07 11:30 | Outpatient (CLI) | payer MEDICARE, OTHER, SELFPAY ==
[2020-08-29 13:08] VITALS: BMI 28.0
[2020-09-11 12:07] LABS: Albumin 3.5 g/dL (2.9-4.4); Alpha-1-Globulins 0.3 g/dL (0.0-0.4); Alpha-2-Globulins 0.7 g/dL (0.4-1.0); Gamma Globulin 0.8 g/dL (0.4-1.8); Immunoglobulin A 194 mg/dL (64-422); Immunoglobulin G 885 mg/dL (586-1602); Immunoglobulin M 50 mg/dL (26-217); PROEL- TOTAL PROTEIN 6.2 g/dL (6.0-8.5)
== END ==
PROVIDERS: PCP Family Medicine; Referring Provider Psychiatry & Neurology Neurology; Visit Provider Psychiatry & Neurology Neurology
DX: G62.9 Polyneuropathy, unspecified (principal)
CPT/HCPCS: 36415; 82784; 84165; 86334; 86335

== ENCOUNTER → 2021-05-08 10:38 | Outpatient (CLI) | payer MEDICARE, OTHER, SELFPAY ==
[2021-05-08 12:22] LABS: Hematocrit 40.7 % (37-47); Hemoglobin 12.9 g/dL (12.0-15.0); Mean Corp Hgb Conc 31.7 g/dL (32-36); Mean Corpuscular Hgb 29.9 pg (27.0-32.0); Mean Corpuscular Volume 94.2 fL (81-99); Mean Platelet Vol. 11.4 fl (6.2-12.0); Platelet Count 237 K/mm3 (150-450); RBC Distribution Width CV 12.9 % (11.6-14.6); RBC Distribution Width SD 44.6 fl (35.1-43.9); Red Blood Count 4.32 M/mm3 (4.2-5.4); White Blood Count 5.1 K/mm3 (4.4-11.0)
[2021-05-14 14:08] LABS: Albumin, Ur 31.1 % (.); Alpha-1-Globulin, Ur 4.1 % (.); Alpha-2-Globulins, Ur 20.8 % (.); Beta Globulin, Ur 26.4 % (.); Gamma Globulin, Ur 17.6 % (.); M-Spike, Ur % Not Observed % (Not Observed); Total Protein, Ur 16.9 mg/dL (Not Estab.)
== END ==
PROVIDERS: PCP Family Medicine; Referring Provider Nurse Practitioner Family; Visit Provider Nurse Practitioner Family
DX: G62.9 Polyneuropathy, unspecified (principal)
CPT/HCPCS: 36415; 83883; 84166; 85027; 86335

== ENCOUNTER → 2021-05-11 13:56 | Outpatient (CLI) | payer MEDICARE, OTHER, SELFPAY ==
--- NOTE | 2021-05-11 13:59 | VDLE_ITS ---
Reason For Study: Swelling, Venous insufficiency RIGHT LEFT CFV is compressible, spontaneous, phasic, CFV is compressible, spontaneous, phasic, competent and demonstrates normal competent, and demonstrates normal augmentation. augmentation. FV is compressible, spontaneous, phasic, FV is compressible, spontaneous, phasic, competent and demonstrates normal competent and demonstrates normal augmentation. augmentation. POP V is compressible, spontaneous, phasic, POP V is compressible, spontaneous, phasic, competent and demonstrates normal competent and demonstrates normal augmentation. augmentation. T/P Trunk is compressible. T/P Trunk is compressible. PTV is compressible. PTV is compressible. RT PerV is compressible. LT PerV is compressible. SFJ is competent and measures 0.64 x 0.78 cm. SFJ is competent and measures 0.72 x 0.69 cm. GSV proximal thigh measures 0.33 x 0.35 cm. GSV proximal thigh measures 0.30 x 0.32 cm. GSV at knee measures 0.24 x 0.26 cm. GSV above knee is competent. GSV is competent throughout. GSV at knee measures 0.27 x 0.25 cm. SSV at junction is competent and measures GSV below knee is INCOMPETENT for greater 0.17 x 0.18 cm. than 0.5 seconds. Procedure SSV at junction is competent and measures This is a venous duplex using B-mode, color 0.23 x 0.23 cm. flow and spectral Doppler. Exam performed in department. A preliminary report was called and/or faxed to [facility]. VL/Venous Duplex US - Julian Extrem Interpretation Summary Deep veins of the lower extremities are bilaterally patent and compressible seg mentally. There is no evidence of deep vein thrombosis on either side. Valvular competence appears in tact within the proximal deep venous systems bilaterally. The great saphenous veins appear bila terally patent and compressible segmentally. Sapheno-femoral junctions are bilaterally competent . The right great saphenous vein appears segmentally competent. The left great saphenous vein tania ears competent above the knee. The left great saphenous vein appears incompetent below the knee. Sma ll saphenous veins are patent and competent bilaterally. Ordering Physician: Breaan Dye Referring Physician: Bang Manriquez Performed By: Clary Baca RVT
== END ==
PROVIDERS: PCP Family Medicine; Referring Provider Nurse Practitioner Family; Visit Provider Nurse Practitioner Family
DX: R60.0 Localized edema (principal); I87.2 Venous insufficiency (chronic) (peripheral)
CPT/HCPCS: 93970

== ENCOUNTER → 2021-06-05 | Outpatient (CLI) | payer MEDICARE, OTHER, SELFPAY ==
--- NOTE | 2021-06-05 | FLU_PTH ---
PATIENT: MARSHALL WU LOC: [facility] U#:[id number] AGE/SX: 86/F ROOM: RE06/05/[address]: Dr. Annemarie Mistry MD : [id number] BED: DIS: 06/05/2021 SPEC #: [id number] RECD: 06/05/21 16:19 STATUS: ANNELISE RECarmen #: [id number] SKYLER: 06/05/21 00:[address]: Annemarie Mistry DEPT: CYTOLOGY RECD BY: Brii Hammond ENTERED: 06/06/21 08:36 SP TYPE: Fluid OTHR DR: Dr. Bang Manriquez MD Tissues: A - Right breast, NOS B - Right breast, NOS Procedures: Special Stain Group II Surgery Specimen Level IV Cytospin Fluid Cytology Other HEADER OPERATION: Right breast fine needle aspiration PRE-OP DIAGNOSIS: Abnormal mammogram TISSUE SUBMITTED: A. Right breast fluid, B. Right breast slides DIAGNOSIS CYTOLOGY A. Right breast fluid, FNA (cytospin and cell block): Apocrine metaplastic cells with atypia noted. See comment. B. Right breast slides, FNA (smears): Apocrine metaplastic cells with atypia noted. See comment. COMMENT B. Numerous degenerated atypical cells are also noted. Correlation with clinical, radiologic findings and appropriate follow up are necessary. Rebiopsy (incisional or excisional) is suggested for definite diagnosis, if clinically indicated. CYTOLOGY STUDY Slides are reviewed. CYTOLOGY GROSS A. Received is 30 ml of cloudy opaque fluid labeled with the patient's name and and designated per the requisition as right breast. Submitted for cytology preparation including cell block. B. Received are 2 smears labeled with the patient's name and designated per the requisition as right breast. Submitted for staining. /MILKA:aaron 06/06/21 TC:5 CPT: 71069, 66873,48072
== END | disposition home or self-care (01) ==
PROVIDERS: PCP Family Medicine; Visit Provider Surgery
DX: R92.8 Other abnormal and inconclusive findings on diagnostic imaging of breast (principal)
CPT/HCPCS: 88108; 88161; 88305; 88313

== ENCOUNTER → 2022-06-21 | Outpatient (CLI) | payer MEDICARE, OTHER, SELFPAY ==
--- NOTE | 2022-06-21 13:54 | CDU_ITS ---
Reason For Study: Left carotid bruit Rt. Velocities/BP Lt. Velocities/BP Prox CCA 83.9/9.7 cm/sec. Prox CCA 90/17 cm/sec. Mid CCA 80.6/10.7 cm/sec. Mid CCA 91.9/13.3 cm/sec. Dist CCA 75.9/10.7 cm/sec. Dist CCA 64.1/11.3 cm/sec. Prox ICA 86.3/7.7 cm/sec. Prox ICA 85/15.7 cm/sec. Mid ICA 59.3/11.4 cm/sec. Mid ICA 72.9/15.7 cm/sec. Dist ICA 82.6/12.6 cm/sec. Dist ICA 97.1/22.3 cm/sec. Rt. ICA/CCA = 1.07. Lt. ICA/CCA = 1.08. Prox ECA 84.2/11 cm/sec. Prox ECA 57.5/8 cm/sec. Rt. Vert. 122.6/16.3 cm/sec. Lt. Vert. 71.8/15.7 cm/sec. Right Extracranial There is intimal thickening but no significant atherosclerotic plaque noted in the right common carotid artery. There is heterogeneous, irregular atherosclerotic plaque noted in the right internal carotid artery. The right internal carotid artery is not well visualized. There is intimal thickening but no significant atherosclerotic plaque noted in the right external carotid artery. Antegrade flow is noted in the right vertebral artery. Left Extracranial There is intimal thickening but no significant atherosclerotic plaque noted in the left common carotid artery. There is heterogeneous, irregular atherosclerotic plaque noted in the left internal carotid artery. There is intimal thickening but no significant atherosclerotic plaque noted in the left external carotid artery. Antegrade flow is noted in the left vertebral artery. Procedure Carotid Duplex [id number]. This is a Carotid Duplex examination using B-mode, color flow and specral Doppler. The study was technically difficult. Exam performed in department. VL/Carotid Duplex Ultrasound Interpretation Summary Mild (<50%) stenosis right extracranial internal carotid. Mild (<50%) stenosis left extracranial internal carotid. Patent and antegrade vertebrals bilaterally. Ordering Physician: Reilly Taylor Referring Physician: Bang Manriquez Performed By: Clary Baca RVT
== END | disposition home or self-care (01) ==
LOC: CVS 13:53
PROVIDERS: PCP Family Medicine; Visit Provider Psychiatry & Neurology Neurology
DX: R09.89 Other specified symptoms and signs involving the circulatory and respiratory systems (principal)
CPT/HCPCS: 93880

== ENCOUNTER 2022-08-05 12:00 | Outpatient (RCR) | payer MEDICARE, OTHER, SELFPAY ==
--- NOTE | 2022-04-16 10:54 | HP.PTEVAL_ITS ---
Patient's Visit Information MARSHALL WU is a 87 year old F referred to Physical Therapy by BELA ESPANA with a diagnosis of L TSA 04/08/22. Date of Evaluation: 04/16/22 Physical Therapist: Edwin Castro, DPT, OCS, CSCS - Visit Plan Frequency: 3x /Week Duration: 2 Months Plan: 3x/week for 6-8 weeks to start, limitations per protocol for first 4 weeks 30 ext rot and 130 elevation), (no IR) AAROM as tolerated). PROM shoulder, AAROM elbow and scap, Manual therapy.Scar massage ,ice. Pt wished to see Angel Salas PT but could not get into him this week so plan of care will be transferred at next visit. - Subjective L reverse TSA one week ago 04/08/22. L shoulder was worn out and RC was shot. Her mobility was very limited. Now in a sling for a month. Pain level is 0/10, but [address] wrong [address] sometimes when putting sling on. Using ice and meds of oxycodone and acetaminophen 4x/day and weaning down to 2x/day. Sleeping is OK in a chair with sling on. it is to be on all the time. Ex: swims at the [employer] and works out at [employer]. Walks daily. Has not started walking yet.. Started some PROM with some and pendulum. She is getting in and out of shower OK. Dresses self. Lives alone in one story house with one step to enter. Son is helping her since her surgery. Wants to get back on golf course, may go away for the winter to [facility]. Is right handed. Precautions is very limited for now. - Pain L shoulder Pain Intensity (Out of 10): 0 Pain Intensity Range: 0, 10 - Objective L arm in sling ambulates back to PT I, trasnfers chair I, I to supine, Min A up form supine head of bed elevated(pt sleepign in recliner). cervical aROM WFL adn painfree. Doffs sling I, dons with Min A. Scap aROM very limited on L and hesitant to move but R is WFL. skin tear upper bicep dressed properly. incision is anterior and dry and healing well without excess edema or rednes, swelling. wrist and hand AROM WFL L. L shoulder PROM flexion 70, abduction 45, ext rotation 12 all self limited by pain complaints and difficulty relaxing. She states she could only lift to about 70 for years prior to surgery. elbow f lexion is slow but full on L and extension is -20 with tension anterior shoulder being the limiting factor. strength shoulder not tested, elbow L not tested. R shoulder and UE AROM WFL and strength 4/5 without pain. - Balance/Special Test Scores Quick DASH Score: 81.8175 - Goals Goal 1:: ST: pain no greater than 3/10 Goal Time Frame: 2-4 Weeks Goal 2:: PROM 130 flexion, 125 abduction and 40 ext rotation as allowed Goal Time Frame: 2-4 Weeks Goal 3:: LT: AROM to 130 to help with ADLs. Goal Time Frame: 6-8 Weeks Goal 4:: quick dash score 20 or better Goal Time Frame: 6-8 Weeks Goal 5:: Plan to return to golf Goal Time Frame: 6-8 Weeks - Rehabilitation Potential Physical Therapy Diagnosis: s/p L TSA with functional deficits. Rehabilitation Potential: Fair - Anticipated Interventions Patient/Client Instruction: Educate patient on: Condition, Plan of Care For the Purpose of:: To decrease pain, To increase ROM, To improve muscle performance and motor function, To increase tolerance to activity/condition/position, To improve ability of physical actions for home/community/work/leisure Therapeutic Exercise to Include: Strength training, Passive ROM, Active ROM For the Purpose of:: To decrease pain, To increase ROM, To improve muscle performance and motor function, To improve ability of physical actions for home/community/work/leisure Manual Therapy Techniques to Include: Scar massage, Passive ROM, Soft tissue mobilization For the Purpose of:: To decrease pain, To increase ROM Cryotherapy (ice pack, ice massage): Yes For the Purpose of:: To decrease swelling/inflammation Thank you for the opportunity to evaluate your patient. For Medicare and Medicare HMO plans, please review the plan of care and approve it. It will need to be FAXED BACK to us at [phone] for Medicare purposes. For Medicare only, by signing this I certify the plan of care. Please let me know if there are questions or concerns regarding this plan of care. Physician Signature: Date:
--- NOTE | 2022-05-06 11:08 | HP.PTREVAL ---
BELA ESPANA, It has been my pleasure to treat MARSHALL WU over the last 10 visits for L TSA 04/08/22. Please see the progress note below for an update on the physical therapy plan of care! Subjective: I am really stiff today Objective/Function: L shoulder pain ranges from 4-6/10. L shoulder AROM: flex= 60, abd= 50, ER= 0 degrees. L shoulder PROM: flex= 110, abd= 110, ER= 15. FGA= 30. Pt is progressing well toward Rx goals Plan Plan: 3x/week for 6-8 weeks to start, limitations per protocol for first 4 weeks 30 ext rot and 130 elevation), (no IR) AAROM as tolerated). PROM shoulder, AAROM elbow and scap, Manual therapy.Scar massage ,ice Balance/Gait/Functional tests - Balance/Special Test Scores Quick DASH Score: 43.1800 Goals Goal 1:: ST: pain no greater than 3/10 Goal Time Frame: 2-4 Weeks Goal Progress: Progressing Goal 2:: PROM 130 flexion, 125 abduction and 40 ext rotation as allowed Goal Time Frame: 2-4 Weeks Goal Progress: Progressing Goal 3:: LT: AROM to 130 to help with ADLs. Goal Time Frame: 6-8 Weeks Goal Progress: Goal Met Goal 4:: quick dash score 20 or better Goal Time Frame: 6-8 Weeks Goal 5:: Plan to return to golf Goal Time Frame: 6-8 Weeks Goal Progress: Progressing Anticipated Interventions Patient/Client Instruction: Educate patient on: Condition, Plan of Care For the Purpose of:: To decrease pain, To increase ROM, To improve muscle performance and motor function, To increase tolerance to activity/condition/position, To improve ability of physical actions for home/community/work/leisure Therapeutic Exercise to Include: Strength training, Passive ROM, Active ROM For the Purpose of:: To decrease pain, To increase ROM, To improve muscle performance and motor function, To improve ability of physical actions for home/community/work/leisure Manual Therapy Techniques to Include: Scar massage, Passive ROM, Soft tissue mobilization For the Purpose of:: To decrease pain, To increase ROM Cryotherapy (ice pack, ice massage): Yes For the Purpose of:: To decrease swelling/inflammation Please do not hesitate to contact me at [phone] by phone or if you have questions or concerns regarding this new plan of care! Sincerely, Angel Salas, PT, ATC
--- NOTE | 2022-06-03 11:02 | HP.PTREVAL ---
BELA ESPANA, It has been my pleasure to treat MARSHALL WU over the last 19 visits for L TSA 04/08/22. Please see the progress note below for an update on the physical therapy plan of care! Subjective: L shoulder is ranging from 3-8/10. Pt is to follow up with her tomorrow Objective/Function: L shoulder pain ranges from 3-8/10. L shoulder ROM: flex= 90, abd= 65, ER= 0. L shoulder MMT: flex= 4.5, abd= 9.6, ER= 0, IR= 9.4 #F. Pt is progressing well toward Rx goals Plan Plan: Cont with focus on L shoulder stretching abd strengthening Balance/Gait/Functional tests - Balance/Special Test Scores Quick DASH Score: 25.0000 Goals Goal 1:: ST: pain no greater than 3/10 Goal Time Frame: 2-4 Weeks Goal Progress: Progressing Goal 2:: PROM 130 flexion, 125 abduction and 40 ext rotation as allowed Goal Time Frame: 2-4 Weeks Goal Progress: Progressing Goal 3:: LT: AROM to 130 to help with ADLs. Goal Time Frame: 6-8 Weeks Goal Progress: Progressing Goal 4:: quick dash score 20 or better Goal Time Frame: 6-8 Weeks Goal Progress: Progressing Goal 5:: Plan to return to golf Goal Time Frame: 6-8 Weeks Goal Progress: Progressing Anticipated Interventions Patient/Client Instruction: Educate patient on: Condition, Plan of Care For the Purpose of:: To decrease pain, To increase ROM, To improve muscle performance and motor function, To increase tolerance to activity/condition/position, To improve ability of physical actions for home/community/work/leisure Therapeutic Exercise to Include: Strength training, Passive ROM, Active ROM For the Purpose of:: To decrease pain, To increase ROM, To improve muscle performance and motor function, To improve ability of physical actions for home/community/work/leisure Manual Therapy Techniques to Include: Scar massage, Passive ROM, Soft tissue mobilization For the Purpose of:: To decrease pain, To increase ROM Cryotherapy (ice pack, ice massage): Yes For the Purpose of:: To decrease swelling/inflammation Please do not hesitate to contact me at [phone] by phone or if you have questions or concerns regarding this new plan of care! Sincerely, Angel Salas, PT, ATC
--- NOTE | 2022-07-09 12:03 | HP.PTREVAL ---
BELA ESPANA, It has been my pleasure to treat MARSHALL WU over the last 28 visits for L TSA 04/08/22. Please see the progress note below for an update on the physical therapy plan of care! Subjective: There is still a lot i cant do yet. Objective/Function: L shoulder ROM: flex= 93, abd= 97. L shoulder MMT: flex= 4.3, abd= 11, ER= 0, IR= 10 #F. L shoulder pain ranges from 2-8/10 at this time. Pt is progressing well toward Rx goals Plan Plan: Cont with focus on L shoulder stretching and strengthening Balance/Gait/Functional tests - Balance/Special Test Scores Quick DASH Score: 32.5000 Goals Goal 1:: ST: pain no greater than 3/10 Goal Time Frame: 2-4 Weeks Goal Progress: Progressing Goal 2:: PROM 130 flexion, 125 abduction and 40 ext rotation as allowed Goal Time Frame: 2-4 Weeks Goal Progress: Progressing Goal 3:: LT: AROM to 130 to help with ADLs. Goal Time Frame: 6-8 Weeks Goal Progress: Progressing Goal 4:: quick dash score 20 or better Goal Time Frame: 6-8 Weeks Goal Progress: Progressing Goal 5:: Plan to return to golf Goal Time Frame: 6-8 Weeks Goal Progress: Progressing Anticipated Interventions Patient/Client Instruction: Educate patient on: Condition, Plan of Care For the Purpose of:: To decrease pain, To increase ROM, To improve muscle performance and motor function, To increase tolerance to activity/condition/position, To improve ability of physical actions for home/community/work/leisure Therapeutic Exercise to Include: Strength training, Passive ROM, Active ROM For the Purpose of:: To decrease pain, To increase ROM, To improve muscle performance and motor function, To improve ability of physical actions for home/community/work/leisure Manual Therapy Techniques to Include: Scar massage, Passive ROM, Soft tissue mobilization For the Purpose of:: To decrease pain, To increase ROM Cryotherapy (ice pack, ice massage): Yes For the Purpose of:: To decrease swelling/inflammation Please do not hesitate to contact me at [phone] by phone or if you have questions or concerns regarding this new plan of care! Sincerely, Angel Salas, PT, ATC
--- NOTE | 2022-08-05 12:31 | HP.PTDCSUM_ITS ---
It has been my pleasure to treat MARSHALL WU referred by BELA ESPANA, with the diagnosis of L TSA 04/08/22 for a total of 32 visit(s). Discharge Date: Please see the following information for a summary of their discharge status. Subjective: Pt reports she feels ready for discharge L shoulder Pain Intensity (Out of 10): 0 % Improvement: 80 Objective/Function: L shoulder pain ranges from 0-6/10. L shoulder ROM: flex= 110, abd= 95, ER= 20. L shoulder MMT: flex= 6, abd= 13, ER= 4, IR= 15 #F. Quickdash 19 Goal 1:: ST: pain no greater than 3/10 Goal Progress: Progressing Goal 2:: PROM 130 flexion, 125 abduction and 40 ext rotation as allowed Goal Progress: Progressing Goal 3:: LT: AROM to 130 to help with ADLs. Goal Progress: Progressing Goal 4:: quick dash score 20 or better Goal Progress: Progressing Goal 5:: Plan to return to golf Goal Progress: Progressing Plan: Discharge to [facility] If there are questions or concerns regarding this patient's physical therapy, please feel free to call me at [phone]. Thank you for the referral of this patient. Sincerely, Angel Salas, PT, ATC Balance/Gait/Functional tests - Balance/Special Test Scores Quick DASH Score: 18.1800
== END 2022-08-05 19:00 | disposition home or self-care (01) ==
LOC: PT 12:00
PROVIDERS: PCP Family Medicine
DX: M12.812 Other specific arthropathies, not elsewhere classified, left shoulder (principal)
CPT/HCPCS: 97110; 97140; 97161; 97164

== ENCOUNTER 2024-02-25 11:22 | Emergency (ER) | payer MEDICARE, OTHER, SELFPAY ==
[2024-02-25 11:24] VITALS: BP 204/87; PULSE 91; RESP 16; TEMP 36.1; O2SAT 97; BMI 27.3
--- NOTE | 2024-02-25 11:39 | EX.ED.DYSGE1 ---
HPI History of Present Illness Chief Complaint: Hypertension Informant: patient Onset/Context/Timing Onset: Days Context: Gradual Onset Timing: Continuous Current Severity: Mild Maximum Severity: Mild Narrative Narrative: 88-year-old female was urgent care was sent to the emergency department. Says she feels anxious due to some family matters and her blood pressure which she is normally treated for hypertension with hydrochlorothiazide and lisinopril is been running higher lately. She denies any recent illness. She denies any chest pain. Said today initially was 184/64 and 204/87 here in triage. She denies any other complaints. Prior similar symptoms: Yes Recent Illness/Hospitalization: No [facility] Medical History History of skin cancer Gallstones COPD (chronic obstructive pulmonary disease) Cataract Arthritis Home Medications ?Medication ?Instructions ?Recorded ?Last Taken ?Type atorvastatin 20 mg tablet 20 mg PO QHS 09/29/17 Unknown History esomeprazole magnesium 20 mg 20 mg PO DAILY 09/29/17 Unknown History capsule,delayed release ascorbate calcium (vitamin C) 500 500 mg PO DAILY PRN 08/29/20 Unknown History mg tablet budesonide-formoterol HFA 160 2 puff inhalation BID 08/29/20 Unknown History mcg-4.5 mcg/actuation aerosol inhaler cholecalciferol (vitamin D3) 125 125 mcg PO DAILY PRN 08/29/20 Unknown History mcg (5,000 unit) capsule lisinopril 20 mg tablet 20 mg PO DAILY 08/29/20 Unknown History melatonin 10 mg capsule 10 mg PO HS PRN 08/29/20 Unknown History zinc 50 mg tablet 25 mg PO DAILY PRN 08/29/20 Unknown History lidocaine-prilocaine 2.5 %-2.5 % 1 applic topical TID PRN pain in 08/20/21 Unknown Rx topical cream feet #30 grams amlodipine 2.5 mg tablet 5 mg PO DAILY 06/18/22 Unknown History ropinirole 1 mg tablet 1 mg PO QHS #90 tabs 06/18/22 Unknown Rx Allergy/AdvReac Type Severity Reaction Status Date / Time ciprofloxacin (From Cipro) AdvReac Intermediate decreased Verified 02/25/24 11:34 muscle strength Surgical History History of reverse total replacement of left shoulder joint Status post right breast lumpectomy Social History Smoking Status: Former smoker Tobacco: How many years used: 20 how long ago did patient quit smokin years ago second hand exposure: Yes (Did smoke in the house) alcohol intake: current alcohol intake frequency: other details: social substance use type: does not use seatbelt use: always ROS ROS ED ROS Narrative Denies recent illness. She is anxious. Review of Systems ROS Unobtainable: Denies due to encephalopathy Constitutional Constitutional ED: Denies chills or fever(s) Eyes Eyes: Denies blurry vision ENT ENT ED: Denies ear pain Cardiovascular Cardiovascular: Denies chest pain Respiratory/Chest Respiratory/Chest: Denies cough or dyspnea Gastrointestinal Gastrointestinal: Denies abdominal pain Genitourinary Genitourinary ED: Denies dysuria Integumentary Denies abscess Neurologic Neurologic: Denies headache(s) Psychiatric Psychiatric: Reports anxiety Endocrine Endocrinology: Denies cold intolerance Hematologic/Lymphatic Hematologic/Lymphatic: Reports none Allergic/Immunologic Allergic/Immunologic ED: Denies mouth swelling, tongue swelling or urticaria EXAM Physical Exam Narrative Exam Narrative: Well-appearing 88-year-old female. Vital signs blood pressure is elevated at 204/87. She does not seem septic or toxic. She is in no distress. H EENT exam unremarkable atraumatic. No facial droop. Normal speech. Neck nontender. No JVD. Lungs clear to auscultation bilaterally. Heart regular rhythm no murmur. Rate about 90. Chest wall and ribs nontender. Abdomen soft nontender. Moving all 4 extremities. 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 Dorsi plantarflexion intact. Nontender no edema. Back unremarkable. Nontender. Neurologically she is awake alert no focal motor deficits. Const Vital Signs: 02/25/24 11:24 02/25/24 11:44 02/25/24 12:13 Temperature 96.9 F L Temperature Source Temporal Pulse Rate 91 Respiratory Rate 16 Blood Pressure 204/87 H 152/91 H 177/70 H Blood Pressure Mean 126 111 105 Pulse Ox 97 Oxygen Delivery Method Room Air Positive well nourished and well developed; Negative for cachectic, contractures or unkempt General Appearance ED: well developed and NAD; Negative for unkempt, cachectic, contractures, cyanotic, diaphoretic or pallor Nutritional Appearance: Negative for cachectic HEENT Reports moist mucous membranes; Denies dry mucous membranes Negative for trauma or tenderness Mouth ED: No dry mucous membranes Mouth: No dry mucous membranes Eyes PERRL and EOMs intact bilaterally General Eye ED: Negative for pale conjunctiva or scleral icterus Neck no lymphadenopathy, supple and no JVD General: Negative for tenderness Lymph Lymphatic: Negative for other Chest Wall inspection of chest normal and palpation of chest normal Chest: Negative for other Resp normal respiratory effort and clear to auscultation bilaterally Effort and Inspection: Negative for retractions Auscultation: Negative for rales, rhonchi, wheezes or diminished lung sounds Cardio regular rate, regular rhythm, S1 normal heart sound, S2 normal heart sound and no murmurs Rate: Negative for bradycardia or tachycardic Rhythm: Negative for abnormal rhythm GI normal to inspection, nondistended, normoactive bowel sounds, non-tender, non-distended and no masses Inspection: Negative for abdominal distention Auscultation: normoactive bowel sounds Palpation: soft; Negative for tender, guarding or rebound tenderness present Back/Spine no CVA tenderness General Back: Negative for CVA tenderness Cervical Spine: Negative for cervical spine tenderness Thoracic Spine / Upper Back: Negative for thoracic spinal tenderness or paraspinal muscle tenderness Lumbar Spine / Lower Back: Negative for lumbar spinal tenderness Extremity normal to inspection General Extremety ED: Negative for edema, tenderness or other findings General Extremity: Negative for edema or other findings Neuro oriented x3 and CN's II-XII intact bilaterally Sensorium / Orientation: alert; Negative for orientation impaired, lethargic or stuporous Motor Exam: strength 5/5 throughout; Negative for general weakness or strength abnormal Psych mental status grossly normal Appearance: Negative for unkempt Attitude: No agitated Mood & Affect: anxious; Negative for depressed or tearful Skin no rashes or lesions noted, no wounds and skin turgor normal General Skin Exam: Negative for jaundice or pallor Lesions: No lesion noted Rashes: No rashes noted Trauma: Negative for abrasion Wounds: Negative for wounds noted MDM MDM MDM Narrative Medical decision making narrative: Patient with anxiety and acute on chronic hypertension. She is on both hydrochlorothiazide and lisinopril. Her exam is otherwise normal. Will repeat her blood pressure and 20 minutes or so. I think her blood pressure is elevated due to her anxiety. Repeat exam patient is doing well at 12:30 PM. Blood pressure is coming down nicely without any medications. She be discharged home. Continue your current blood pressure medications hydrochlorothiazide and lisinopril. Follow-up with her primary care provider to see if they need to treat her for her anxiety with any medications or adjust her blood pressure medications. Patient is comfortable with the plan. Discharge Plan Triage Chief Complaint: Hypertension ED Provider: Amos Mcclellan Dx/Rx/DC Orders Clinical Impression: Hypertension, Anxiety Instructions: Hypertension Dc, ED Anxiety Reaction Prescriptions: No Action ascorbate calcium (vitamin C) 500 mg tablet 500 mg PO DAILY PRN Patient Comments: PATIENT STATES SHE TAKES THIS DURING FLU SEASON ONLY zinc 50 mg tablet 25 mg PO DAILY PRN Patient Comments: PATIENT STATES SHE TAKES THIS DURING FLU SEASON ONLY lisinopril 20 mg tablet 20 mg PO DAILY cholecalciferol (vitamin D3) 125 mcg (5,000 unit) capsule 125 mcg PO DAILY PRN Patient Comments: PATIENT STATES SHE TAKES THIS DURING FLU SEASON ONLY melatonin 10 mg capsule 10 mg PO HS PRN lidocaine-prilocaine 2.5-2.5 % cream 1 applic topical TID PRN (Reason: pain in feet) Qty: 30 3RF amlodipine 2.5 mg tablet 5 mg PO DAILY ropinirole 1 mg tablet 1 mg PO QHS Qty: 90 2RF atorvastatin 20 MG tablet 20 mg PO QHS esomeprazole magnesium 20 MG capsule,delayed release(DR/EC) 20 mg PO DAILY budesonide-formoterol 160-4.5 mcg/actuation HFA aerosol inhaler 2 puff inhalation BID Rx Instructions: Take two puffs in the am and one in the pm Primary Care Provider: Bang Manriquez Referrals: Bang Manriquez MD [Primary Care Provider] - 1 Week Activity Restrictions/Additional Instructions: Take your blood pressure medications as prescribed. Monitor blood pressure twice daily. Log those readings. First thing in the morning after breakfast when you are calm and relaxed. And in the evening after dinner again when you are calm and relaxed. When you follow-up your primary care physician show him your blood pressure readings so that they can decide the need to adjust your blood pressure medications. For your anxiety do walks, exercise, reading meditation. Discussed that with your primary care physician to see if they think they need to start you on anxiety medication. Print Language: Arabic Disposition Disposition: Home, Self Care
[2024-02-25 11:44] VITALS: BP 152/91
[2024-02-25 12:13] VITALS: BP 177/70
[2024-02-25 12:49] VITALS: BP 172/64; PULSE 64; RESP 18; TEMP 36.4; O2SAT 99
== END 2024-02-25 12:50 | disposition home or self-care (01) ==
PROVIDERS: Emergency Provider Emergency Medicine; PCP Family Medicine; Visit Provider Emergency Medicine
DX: I10 Essential (primary) hypertension (principal); J44.9 Chronic obstructive pulmonary disease, unspecified; F41.9 Anxiety disorder, unspecified; Z87.891 Personal history of nicotine dependence
CPT/HCPCS: 99282

== ENCOUNTER 2024-07-09 12:00 | Outpatient (RCR) | payer MEDICARE, OTHER, SELFPAY ==
--- NOTE | 2024-05-13 12:05 | HP.PTEVAL_ITS ---
Patient's Visit Information Visit Information Visit Information: MARSHALL WU is a 89 year old F referred to Physical Therapy by YULI Barboza with a diagnosis of gait instability. Date of Evaluation: 05/13/24 Physical Therapist: Angel Salas, PT, ATC Visit Plan Frequency: 3x /Week Duration: 4-6 Weeks Plan: B LE strengthening, balance and proprio, core strengthening, gait training, stair negotiation, nustep, and HEP Subjective Subjective: Pt reports she had COVID in March. Pt notes once she recovered from the illness, she noticed decreased strength in her legs. Pt reports she has fallen 3 times in the past 6 weeks. Pt notes she has suffered minor injuries from her falls, but nothing debilitating. Pt notes she has neuropathy, and can somewhat feel her feet hit the ground, but she has decreased sensation. Pt notes no prior Hx of falls prior to the illness. Pt reports she is not in pain today. Pt reports she has no stairs at home, but is able to negotiate stairs one step at a time. Pt is an avid golfer, and notes she has not been able to golf since having COVID. Pt reports she feels steady on even ground, but feels very unsteady on uneven ground secondary to her neuropathy and LE weakness. Pt notes she ambulated with a walker after her fall, but has been walking I since. Objective Objective: Neuro: Pt has hypersensitivity in B LE's from the knees down. Sensation is WNL to light touch from the knees up MMT: B LE's are grossly 4-/5 throughout TU sec FGA: Balance/Special Test Scores Functional Gait Assessment Score: 14 % Disability: 53.3400 Lower Extremity Functional Score: 26 Goals Goal 1:: Increase B LE strength x 1 grade to aid with stair negotiation Goal Time Frame: 4-6 Weeks Goal 2:: Increase FGA x 5 points () to aid with preventing future falls Goal Time Frame: 4-6 Weeks Goal 3:: Pt will perform the TUG test in under 10 seconds to aid with community ambulation Goal Time Frame: 4-6 Weeks Goal 4:: I with HEP Goal Time Frame: 4-6 Weeks Rehabilitation Potential Physical Therapy Diagnosis: Pt has B LE weakness, decreased balance, and a Hx of falls secondary to debilitation Rehabilitation Potential: Good Anticipated Interventions Patient/Client Instruction: Educate patient on: Condition and Plan of Care For the Purpose of:: To improve self management Therapeutic Exercise to Include: Strength training, Endurance training, Balance training, Flexibilty training, Gait and locomotor training and Active ROM For the Purpose of:: To improve muscle performance and motor function, To increase tolerance to activity/condition/position and To improve ability of physical actions for home/community/work/leisure Text: Thank you for the opportunity to evaluate your patient. For Medicare and Medicare HMO plans, please review the plan of care and approve it. It will need to be FAXED BACK to us at [phone] for Medicare purposes. For Medicare only, by signing this I certify the plan of care. Please let me know if there are questions or concerns regarding this plan of care. Physician Signature: Date:
--- NOTE | 2024-06-11 12:04 | HP.PTREVAL_ITS ---
Re-Evaluation Intro: Nadia Martin, HOME ATTENDANT, It has been my pleasure to treat MARSHALL WU over the last 11 visits for gait instability. Please see the progress note below for an update on the physical therapy plan of care! Subjective Subjective: I am tired from yesterday Objective Objective/Function: TU sec FGA: - Normal balance at this time MMT: B LE's 4+/5 throughout Pt has really improved balance at this time but continues to lack functional strength. Plan Plan Plan: 06/11/24- Cont with B LE strengthening, balance and proprio, core strengthening, gait training, stair negotiation, nustep, and HEP Balance/Gait/Functional tests Balance/Special Test Scores Functional Gait Assessment Score: 21 % Disability: 30.0000 Lower Extremity Functional Score: 40 Goals Goals Goal 1:: Increase B LE strength x 1 grade to aid with stair negotiation Goal Time Frame: 4-6 Weeks Goal Progress: Progressing Goal 2:: Increase FGA x 5 points () to aid with preventing future falls Goal Time Frame: 4-6 Weeks Goal Progress: Goal Met Goal 3:: Pt will perform the TUG test in under 10 seconds to aid with community ambulation Goal Time Frame: 4-6 Weeks Goal Progress: Goal Met Goal 4:: I with HEP Goal Time Frame: 4-6 Weeks Goal Progress: Progressing Anticipated Interventions Anticipated Interventions Patient/Client Instruction: Educate patient on: Condition and Plan of Care For the Purpose of:: To improve self management Therapeutic Exercise to Include: Strength training, Endurance training, Balance training, Flexibilty training, Gait and locomotor training and Active ROM For the Purpose of:: To improve muscle performance and motor function, To increase tolerance to activity/condition/position and To improve ability of physical actions for home/community/work/leisure Re-Evaluation Ending Re-evaluation ending: Please do not hesitate to contact me at [phone] by phone or if you have questions or concerns regarding this new plan of care! Sincerely, Angel Salas, PT, ATC
--- NOTE | 2024-07-09 13:15 | HP.PTDCSUM ---
Discharge Summary D/C summary: It has been my pleasure to treat MARSHALL WU referred by YULI Barboza, with the diagnosis of gait instability for a total of 19 visit(s). Discharge Date: Please see the following information for a summary of their discharge status. Subjective Subjective: I am ready to be done Overall Improvement % Improvement: 70 Objective Objective/Function: TUG 8 sec FGA= /30 MMT: B LE's 5/5 throughout Pt is I with HEP Goals Goal 1:: Increase B LE strength x 1 grade to aid with stair negotiation Goal Progress: Goal Met Goal 2:: Increase FGA x 5 points () to aid with preventing future falls Goal Progress: Goal Met Goal 3:: Pt will perform the TUG test in under 10 seconds to aid with community ambulation Goal Progress: Goal Met Goal 4:: I with HEP Goal Progress: Goal Met Plan Plan: Discharge to HEP D/C Information d/c sentence: If there are questions or concerns regarding this patient's physical therapy, please feel free to call me at [phone]. Thank you for the referral of this patient. Sincerely, Angel Salas, PT, ATC Balance/Gait/Functional tests Balance/Special Test Scores Functional Gait Assessment Score: 25 % Disability: 16.6700 Lower Extremity Functional Score: 40 Improvement % Improvement: 70
== END 2024-07-09 15:43 | disposition home or self-care (01) ==
LOC: PT 12:00
PROVIDERS: PCP Family Medicine; Referring Provider Clinical Nurse Specialist Adult Health; Visit Provider Clinical Nurse Specialist Adult Health
DX: R29.6 Repeated falls (principal)
CPT/HCPCS: 97110; 97161; 97530

== ENCOUNTER 2025-02-04 13:00 | Outpatient (RCR) | payer MEDICARE, OTHER, SELFPAY ==
--- NOTE | 2024-12-15 14:25 | HP.PTEVAL ---
Patient's Visit Information Visit Information Visit Information: MARSHALL WU is a 89 year old F referred to Physical Therapy by Dr. Larry Naranjo MD with a diagnosis of LBP. Date of Evaluation: 12/15/24 Physical Therapist: Angel Salas, PT, ATC Visit Plan Frequency: 2x /Week Duration: 2-4 Weeks Plan: SKTC/DKTC, core strengthening, B LE strengthening, gait training, and HEP Subjective Subjective: Pt reports her low back has been sore for about 3 weeks. Pt notes her pain was terrible at first, but then she switched beds and now her pain is a little less. Pt denies any tingling or numbness at this time. Pt reports her pain is always worse when waking up in the morning. Pt reports prolonged walking always increases her pain. Pt also notes sitting helps her back to feel better, but her pain gets worse when she sits for too long. Pt notes she is an avid golfer, and is only able to golf 9 holes at this time secondary to pain. Pt reports she is able to perform most of her ADL's, but has difficulty secondary to LBP and old age. Pt reports her LBP is 1/10 while sitting here in the clinic, but elevates to 9/10 at worst. Pain LBP: Pain Intensity (Out of 10): 1 Pain Intensity Range: 9 Objective Objective: Neuro: B LE sensation is WNL to light touch. MMT: B LE's are grossly 4/5 throughout ROM: Pt is severely limited with L/S extension. Pt is moderately limited with B sidebend. Repeated movements: SKTC/DKTC decreases LBP Gait: Pt is able to ambulate 510 feet until needing to rest secondary to pain Balance/Special Test Scores Oswestry Low Back Score: 25 Goals Goal 1:: Decrease LBP x 50% to aid with sleep Goal Time Frame: 2-4 Weeks Goal 2:: Pt will be able to ambulate 1000 feet until needing to rest to aid with community mobility Goal Time Frame: 2-4 Weeks Goal 3:: I with HEP Goal Time Frame: 2-4 Weeks Rehabilitation Potential Physical Therapy Diagnosis: Pt has LBP, Difficulty with sleep, and limitations with ADL's secondary to degenerative changes in the lumbar spine Rehabilitation Potential: Good Anticipated Interventions Patient/Client Instruction: Educate patient on: Condition and Plan of Care For the Purpose of:: To improve self management Therapeutic Exercise to Include: Strength training, Endurance training, Postural training, Active ROM and Dynamic Lumbar Stabilization For the Purpose of:: To decrease pain, To increase ROM and To improve muscle performance and motor function Text: Thank you for the opportunity to evaluate your patient. For Medicare and Medicare HMO plans, please review the plan of care and approve it. It will need to be FAXED BACK to us at [phone] for Medicare purposes. For Medicare only, by signing this I certify the plan of care. Please let me know if there are questions or concerns regarding this plan of care. Physician Signature: Date:
--- NOTE | 2025-02-04 13:33 | HP.PTDCSUM ---
Discharge Summary D/C summary: It has been my pleasure to treat MARSHALL WU referred by Dr. Larry Naranjo MD, with the diagnosis of LBP for a total of 5 visit(s). Discharge Date: Please see the following information for a summary of their discharge status. Subjective Subjective: Pt reports she has been strengthening and seeing a chiro. Pain is very low now Pain LBP: Pain Intensity (Out of 10): 2 Overall Improvement % Improvement: 50 Objective Objective/Function: LBP 2/10 Pt is able to ambulate 1020 feet without difficulty Pt is I with HEP Pt has achieved Rx goals Goals Goal 1:: Decrease LBP x 50% to aid with sleep Goal Progress: Goal Met Goal 2:: Pt will be able to ambulate 1000 feet until needing to rest to aid with community mobility Goal Progress: Goal Met Goal 3:: I with HEP Goal Progress: Goal Met Plan Plan: Discharge to HEP D/C Information d/c sentence: If there are questions or concerns regarding this patient's physical therapy, please feel free to call me at [phone]. Thank you for the referral of this patient. Sincerely, Angel Salas, PT, ATC Balance/Gait/Functional tests Balance/Special Test Scores Oswestry Low Back Score: 14 Improvement % Improvement: 50
== END 2025-02-04 19:00 | disposition home or self-care (01) ==
LOC: PT 13:00
PROVIDERS: PCP Family Medicine; Visit Provider Anesthesiology Pain Medicine
DX: M51.360 Other intervertebral disc degeneration, lumbar region with discogenic back pain only (principal); M54.50 Low back pain, unspecified; G60.9 Hereditary and idiopathic neuropathy, unspecified; G89.29 Other chronic pain
CPT/HCPCS: 97110; 97161; 97530

== ENCOUNTER 2025-02-05 23:01 | Emergency (ER) | payer MEDICARE, OTHER, SELFPAY ==
[2025-02-05 23:02] VITALS: BP 211/88; PULSE 87; RESP 16; TEMP 36.7; O2SAT 97
--- NOTE | 2025-02-05 23:25 | CT_ITS ---
PROCEDURE: SPINE CERVICAL WITHOUT CONTRAS 02/05/2025 REASON FOR EXAM: INJURY TECHNIQUE: SPINE CERVICAL WITHOUT CONTRAS Coronal and Sagittal reconstruction series were provided. One or more dose reduction techniques were used (e.g., Automated exposure control, adjustment of the mA and/or kV according to patient size, use of iterative reconstruction technique. COMPARISON: No FINDINGS: Cervical spine scoliosis and degeneration. No acute fracture or dislocation. No soft tissue injury. No apical pneumothorax. Diffusely enlarged thyroid likely goiter. CT/Spine Cervical without Contras IMPRESSION: No acute injury Reading Location: [place] [address]
--- NOTE | 2025-02-05 23:25 | CT_ITS ---
PROCEDURE: BRAIN/HEAD WITHOUT CONTRAST 02/05/2025 REASON FOR EXAM: HEAD INJURY TECHNIQUE: BRAIN/HEAD WITHOUT CONTRAST Coronal and Sagittal reconstruction series were provided. One or more dose reduction techniques were used (e.g., Automated exposure control, adjustment of the mA and/or kV according to patient size, use of iterative reconstruction technique. RADIATION DOSE SUMMARY: CTDlvol: 64 mGy DLP: 1227 mGycm COMPARISON: No FINDINGS: Mild atrophy. Mild white matter change. Few arterial calcifications. No acute abnormal brain densities. No intracranial hemorrhage. No hydrocephalus or midline shift. Left anterior lateral scalp hematoma. No skull fracture. Bilateral lens extraction. Small left maxillary sinus cyst. CT/Brain/Head without Contrast IMPRESSION: No acute intracranial findings Reading Location: [place] [id number]
--- OUTSIDE RECORDS SUMMARY | 2025-02-05 23:33 | XMS RPT_ITS | CCD ---
Author Organization [facility] Care Team Providers Care Joss House Keeper Name Role Phone Bang Holland Primary Care Provider Bang Holland MD Primary Care Provider Nanda RN, Calista E Unavailable Unavail able Nanda RN, Calista E Unavailable Bang Holland MD Primary Care Provider Nanad RN, Calista E Unavailable Bang Holland MD Primary Care Provider Nanda RN, Calista E Unavailable Leonidas RN, Sergei Unavailable Bang Holland MD Primary Care Provider Leonidas GATES, Sergei Unavailable Dr. Bang Holland Primary Care Provider Dr. Bang Holland Referring Provider Dr. Reilly Taylor Attending Provider Dr. Edwin Caba Attending Provider Leonidas GATES, Sergei Unavailable Dr. Reilly Taylor Referring Provider Nanda GATES, Calista E Unavailable Tee Montgomery PA-C Primary Care Provider Tee Montgomery Primary Care Provider Leonidas GATES, Sergei Unavailable BANG HOLLAND Primary Care Unavailable CLEO CANNON Referring Unavailable BANG HOLLAND Referring Unavailable BANG HOLLAND Primary Care Unavailable CLEO CANNON Attending Unavailable Tee MONTGOMERY Primary Care Unavailable CLEO CANNON Referring Unavailable Tee MONTGMOERY Primary Care Unavailable CLEO CANNON Attending Unavailable Tee MONTGOMERY Referring Unavailable Tee Montgomery PA-C Primary Care Provider Bang Holland MD Primary Care Provider Nanda GATES, Calista Wilson Unavailable Tee Montgomery Primary Care Provider Ulises BONILLA, Pamela Francois Primary Care Provider Unavailable Haagen MOCK UP MAKER.INDRA Gema Unavailable Suppan MOCK UP MAKER.STUDY LEAD, Nadia A Unavailable Pamela Montgomery PA-C Primary Care Provider Unavailable Suppan MOCK UP MAKER.STUDY LEAD, Nadia A Primary Care Provi nemesio Suppan MOCK UP MAKER.STUDY LEAD, Nadia A Unavailable [phone] Suppan MOCK UP MAKER.STUDY LEAD, Nadia A Primary Care Provi nemesio LORA SANTIAGO Attending Unavailable MONTGOMERY, M Primary Care Unavailable LORA SANTIAGO Attending Unavailable MONTGOMERY, M Primary Care Unavailable SUPPAN, ANDIA A Primary Care Unavailable SUPPAN, NADIA A Referring Unavailable SUPPAN, NADIA A Primary Care Unavailable SUPPAN, NADIA A Referring Unavailable JUANITA, KE Referring Unavailable MONTGOMERYPAMELA Primary Care Unavailable HAAGENGEMA Attending Unavailable PAMELA MONTGOMERY Primary Care Unavailable JUANITA, KE Attending Unavailable PAMELA MONTGOMERYORY Primary Care Unavailable SUPPJIMBO, NADIA A Primary Care Unavailable BANG PLUMMER JR Attending Unavailable KAMILLE RIZO Referring Unavailable KAMILLE RIZO Attending Unavailable PAMELA MONTGOMERY Primary Care Unavailable KAMILLE RIZO Referring Unavailable PAMELA MONTGOMERY Primary Care Unavailable BANG PLUMMER JR Attending Unavailable PAMELA MONTGOMERY Primary Care Unavailable CLEO CANNON Referring Unavailable PAMELA MONTGOMERY Primary Care Unavailable SUPPAN, NADIA A Primary Care Unavailable SUPPAN, NADIA A Referring Unavailable AUGIE MEDRANO Referring Unavailable MONTGOMERY, PAMELA FRANCOIS Primary Care Unavailable SUPPAN, NADIA A Attending Unavailable MONTGOMERY, PAMELA FRANCOIS Primary Care Unavailable MONTGOMERY, PAMELA FRANCOIS Primary Care Unavailable SUPPAN, NADIA A Attending Unavailable SUPPAN, NADIA A Primary Care Unavailable NANY WILLS Attending Unavailable ULISES, PAMELA FRANCOIS Primary Care Unavailable LARRY BURDICK Attending Unavailable SUPPAN, NADIA A Primary Care Unavailable ANGELIKA CHAVEZ Attending Unavailable SUPPAN, NADIA A Primary Care Unavailable SUPPAN, NADIA A Attending Unavailable SUPPAN, NADIA A Primary Care Unavailable SUPPAN, NADIA A Attending Unavailable MONTGOMERY, PAMELA FRANCOIS Primary Care Unavailable SUPPAN, NADIA A Attending Unavailable MONTGOMERY, PAMELA FRANCOIS Primary Care Unavailable MONTGOMERY, PAMELA FRANCOIS Primary Care Unavailable SUPPAN, NADIA A Primary Care Unavailable SUPPAN, NADIA A Attending Unavailable Suppan, Nadia Attending Unavailable Suppan, Nadia Referring Unavailable Bang Holland Primary Care Unavailable [place] Lake[place]ang katz Primary Care Unavailable Amos Mcclellan Attending Unavailable Larry Burdick Attending Unavailable Bang Holland Primary Care Unavailable Allergies Allergy Classification Reported Allergen(s) Allergy Type Date of Onset Reaction(s) Facility Quinolones (antibiotic) (4 sources) Ciprofloxacin Drug Allergy 9 Other: See Comments [facility] Work Phone: (20 sources) Ciprofloxacin; Translations: [CIPROFLOXACIN] Drug Allergy 9 Other (See Comments), Other: See Comments [facility] Work Phone: (20 sources) Seasonal allergy; Translations: [SEASONAL ALLERGIES] Allergy to substance 7 Intolerance [facility] Work Phone: (4 sources) Other Allergy to substance 7 [facility] (1 source) Ciprofloxacin Drug Allergy 4 [facility] Medications Current Medications Medication Drug Class(es) Dates Sig (Normalized) Sig (Original) atorvastatin 20 mg oral tablet (20 sources) HMG-CoA Reductase Inhibitor Start: 05-17-2024 atorvastatin (LIPITOR) 20 mg tablet Indications: Mixed hyperlipidemia TAKE 1 TABLET DAILY AT BEDTIME FOR CHOLESTEROL 90 tablet 3 05/17/2024 Active Start: 04-27-2022 End: 05-15-2024 atorvastatin (LIPITOR) 20 mg tablet Indications: Mixed hyperlipidemia TAKE 1 TABLET DAILY AT BEDTIME FOR CHOLESTEROL 90 tablet 3 05/17/2024 Active Start: 09-29-2017 End: 04-15-2022 atorvastatin (LIPITOR) 20 mg tablet Indications: Gastroesophageal reflux disease without esophagitis TAKE 1 TABLET DAILY AT BEDTIME FOR CHOLESTEROL 90 tablet 3 05/22/2020 05/26/2021 Discontinued Comment on above: TAKE 1 TABLET DAILY AT BEDTIME FOR CHOLESTEROL Budesonide / formoterol (20 sources) Corticosteroid, beta2-Adrenergic Agonist Start: 07-26-19 End: 07-26-19 take 2 puff(s) by inhalation twice daily budesonide-formoterol (SYMBICORT) 160-4.5 mcg/actuation inhaler Indications: Stage 1 mild COPD by GOLD classification ([facility]) Inhale 2 Puffs as instructed two times a day. 3 Each 3 07/26/2024 07/26/2025 Active Start: 02-27-2024 End: 07-26-2024 take 2 puff(s) by inhalation twice daily budesonide-formoterol (SYMBICORT) 160-4.5 mcg/actuation inhaler Indications: Stage 1 mild COPD by GOLD classification ([facility]) Inhale 2 Puffs as instructed two times a day. 3 Each 3 02/27/2024 07/26/2024 Discontinued Start: 02-27-2024 End: 02-26-2025 take 2 puff(s) by inhalation twice daily budesonide-formoterol (SYMBICORT) 160-4.5 mcg/actuation inhaler Indications: Stage 1 mild COPD by GOLD classification ([facility]) Inhale 2 Puffs as instructed two times a day. 3 Each 3 02/27/2024 02/26/2025 Active Start: 12-24-2023 End: 02-27-2024 take 2 puff(s) by inhalation twice daily budesonide-formoterol (SYMBICORT) 160-4.5 mcg/actuation inhaler Indications: Stage 1 mild COPD by GOLD classification ([facility]) Inhale 2 Puffs as instructed two times a day. 3 Each 3 12/24/2023 02/27/2024 Discontinued Start: 12-24-2023 take 2 puff(s) by in halation twice daily budesonide-formoterol (SYMBICORT) 160-4.5 mcg/actuation inhaler Indications: 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) Inhale 2 Puffs as instructed two times a day. 3 Each 3 12/24/2023 Active Start: 12-24-2023 End: 12-24-2023 take 2 puff(s) by inhalation twice daily budesonide-formoterol (SYMBICORT) 160-4.5 mcg/actuation inhaler Inhale 2 Puffs as instructed two times a day. 1 Each 5 12/24/2023 12/24/2023 Discontinued Start: 09-26-2023 take 2 puff(s) by in halation in the morning budesonide-formoterol (Symbicort) 160-4.5 MCG/ACT inhaler Inhale 2 puffs in the morning and 2 puffs in the evening. 09/26/2023 Active Start: 09-26-2023 End: 12-24-2023 take 2 puff(s) by inhalation twice daily budesonide-formoterol (BREYNA) 160-4.5 mcg/actuation inhaler Inhale 2 Puffs as instructed two times a day. 0 09/26/2023 12/24/2023 Discontinued Start: 09-26-2023 take 2 puff(s) by in halation twice daily budesonide-formoterol (BREYNA) 160-4.5 mcg/actuation inhaler Inhale 2 Puffs as instructed two times a day. 0 09/26/2023 Active Start: 12-25-2022 End: 10-27-2023 take 2 puff(s) by inhalation twice daily budesonide-formoterol (SYMBICORT) 160-4.5 mcg/actuation inhaler Indications: Simple chronic bronchitis (HCC) Inhale 2 Puffs as instructed twice daily. 3 Each 3 12/25/2022 10/27/2023 Discontinued Start: 12-25-2022 take 2 puff(s) by in halation twice daily budesonide-formoterol (SYMBICORT) 160-4.5 mcg/actuation inhaler Indications: Simple chronic bronchitis (HCC) Inhale 2 Puffs as instructed twice daily. 3 Each 3 12/25/2022 Active Start: 04-18-2022 Symbicort 160- 4.5 MCG/ACT inhaler 04/18/2022 Active Start: 04-15-2022 take 2 puff(s) by in halation twice daily budesonide-formoterol (SYMBICORT) 160-4.5 mcg/actuation inhaler Indications: Simple chronic bronchitis (HCC) Inhale 2 Puffs as instructed twice daily. 3 Each 3 04/15/2022 Active Start: 01-26-2021 End: 04-15-2022 take 2 puff(s) by inhalation twice daily budesonide-formoterol (SYMBICORT) 160-4.5 mcg/actuation inhaler Indications: Simple chronic bronchitis (HCC) Inhale 2 Puffs as instructed twice daily. 3 Inhaler 4 01/26/2021 04/15/2022 Discontinued (Duplicate Entry) Start: 01-26-2021 take 2 puff(s) by in halation twice daily budesonide-formoterol (SYMBICORT) 160-4.5 mcg/actuation inhaler Indications: Simple chronic bronchitis (HCC) Inhale 2 Puffs as instructed twice daily. 3 Inhaler 4 01/26/2021 Active Start: 08-29-2020 Budesonide-For moterol Active 2 PUFF INHALATION TWICE A DAY August 29, 2020 1:10pm Take two puffs in the am and one in the pm Start: 09-29-2017 End: 08-29-2020 take 1 puff(s) by inhalation twice daily Budesonide-Formoterol Discontinued 2 PUFF INHALATION TWICE A DAY September 28, 2017 11:00pm August 29, 2020 1:14pm Start: 03-25-2015 SYMBICORT 160- 4.5 MCG/ACT AERO Comment on above: Inhale 2 Puffs as in structed twice daily. Inhale 2 Puffs as in structed two times a day. Budesonide-Formoterol Fumarate (BREYNA IN) (3 sources) Budesonide-Formo terol Fumarate (BREYNA IN) Inhale. Active Budesonide-Formo terol Fumarate (BREYNA IN) Inhale. 0 Active calcium ascorbate 500 mg oral tablet (4 sources) Start: 08-03-2020 End: 08-29-2020 take 500 mg by mouth once daily Ascorbate Calcium (Vitamin C) Active 500 MG PO DAILY August 29, 2020 1:11pm cephalexin 500 mg oral capsule (2 sources) Cephalosporin Antibacterial Start: 04-01-2023 End: 04-08-2023 take 1 capsule by mouth three times daily cephALEXin (KEFLEX) 500 mg capsule Take 1 capsule by mouth three times daily for 7 days. 21 capsule 0 04/01/2023 04/08/2023 Active Comment on above: Take 1 capsule by [facility] three times daily for 7 days. cholecalciferol 0.125 mg oral capsule (3 sources) Vitamin D Start: 08-29-2020 take 125 ug by mouth once daily Cholecalciferol (Vitamin D3) Active 125 MCG PO DAILY August 29, 2020 12:00am dexamethasone 1 mg/ml / neomycin 3.5 mg/ml / polymyxin b 15972 unt/ml ophthalmic suspension (2 sources) Aminoglycoside Antibacterial, Polymyxin-class Antibacterial, Corticosteroid Start: 03-10-2020 take 1 drop(s) into the eye(s) three times daily neomycin-polymyxin- dexameth (MAXITROL) 3.5-27994-4.1 ophthalmic suspension INSTILL 1 DROP INTO BOTH EYES 3 TIMES A DAY 0 03/10/2020 Active Start: 02-22-2020 neomycin-polym yxin-dexameth 3.5-93479-3.1 OINT 1 APPLICATION IN BOTH EYES THREE TIMES A DAY APPLY TO LID MARGINS 0 02/22/2020 Active doxycycline hyclate 100 mg oral tablet (5 sources) Tetracycline-class Drug Start: 09-21-2024 End: 10-01-2024 take 1 tablet by mouth twice daily doxycycline (VIBRA-TABS) 100 mg tablet Indications: Acute non-recurrent sinusitis, unspecified location Take 1 tablet by mouth two times a day for 10 days. 20 tablet 09/21/2024 10/01/2024 Active Start: 05-13-2023 End: 05-20-2023 take 1 tablet by mouth twice daily doxycycline (VIBRA-TABS) 100 mg tablet Take 1 tablet by mouth two times a day for 7 days. 14 tablet 05/13/2023 05/20/2023 Comment on above: Take 1 tablet by [facility] two times a day for 7 days. erythromycin 0.005 mg/mg ophthalmic ointment (1 source) Macrolide, Macrolide Antimicrobial Start: 0 erythromycin (ROMYCIN) 5 MG/GM ophthalmic ointment APPLY 1 APPLICATION IN BOTH EYES AT BEDTIME 0 03/10/2020 Active esomeprazole 20 mg delayed release oral capsule (20 sources) Proton Pump Inhibitor Start: 8 take 20 mg by mouth once daily Esomeprazole Magnesium Active 20 MG PO DAILY September 28, 2017 11:00pm ESOMEPRAZOLE MAG NESIUM (NEXIUM 24HR ORAL) Take by mouth. Active ESOMEPRAZOLE MAG NESIUM (NEXIUM 24HR ORAL) Take by mouth. 0 Active Comment on above: Take by mouth. fluorouracil 50 mg/ml topical cream (1 source) Nucleoside Metabolic Inhibitor Start: 2020 fluorouracil (EFUDEX) 5 % cream Indications: Actinic keratoses , Squamous cell carcinoma of skin of left upper arm Apply topically to L upper arm BID x 4 weeks 40 g 1 07/19/2020 Active hydroCHLOROthiazide 12.5 mg oral capsule (20 sources) Thiazide Diuretic Start: 2023 End: 2025 take 1 capsule by mouth once daily hydroCHLOROthiazide 12.5 mg capsule Indications: Essential hypertension Take 1 capsule by mouth once daily. 90 capsule 3 01/17/2025 01/17/2026 Active Comment on above: Take 1 capsule by [facility] once daily. lidocaine 25 mg/ml / prilocaine 25 mg/ml topical cream (2 sources) Antiarrhythmic, Amide Local Anesthetic Start: 2021 Lidocaine-Prilocaine Active 1 APPLIC TOPICAL THREE TIMES A DAY August 20, 2021 12:00am lisinopril 30 mg oral tablet (20 sources) Angiotensin Converting Enzyme Inhibitor Start: 2023 End: 2024 take 1 tablet by mouth once daily lisinopril (ZESTRIL) 30 mg tablet Indications: Essential hypertension, benign Take 1 tablet by mouth once daily. 90 tablet 3 06/21/2024 06/21/2025 Active Start: 04-08-2020 End: 06-20-2024 lisinopril 20 MG tablet 09/0 03/2022 Active Start: 05-27-2015 End: 08-29-2020 take 10 mg by mouth once daily Lisinopril Discontinued 10 MG PO DAILY September 28, 2017 11:00pm August 29, 2020 1:10pm Comment on above: Take 1 tablet by [facility] once daily. Magnesium (20 sources) MAGNESIUM ORAL T diane by mouth. Active melatonin 10 mg oral capsule (20 sources) Start: End: 5 Melatonin 10 MG capsule Take 10 mg by mouth. 08/29/2020 Active Comment on above: Take 10 mg by mouth. methocarbamol 500 mg oral tablet (4 sources) Muscle Relaxant Start: 5 End: 5 take 1 tablet by mouth three times daily as needed methocarbamol (ROBAXIN) 500 mg tablet Indications: Upper back pain Take 1 tablet by mouth three times a day as needed. 60 tablet 2 09/21/2024 12/20/2024 Active MULTIPLE VITAMIN PO (1 source) Start: 8 MULTIPLE VITAMIN PO Multivitamin preparation Multivitamin Active 1 EA DAILY September 29, 2017 7:03pm 09-29-2017 [facility] ([id number]) 0 09/29/2017 Active multivit,thx,calcium,i yelena,mins (MULTIVITAMIN AND MINERAL ORAL) (12 sources) End: 4 multivit,thx,calcium,i yelena,mins (MULTIVITAMIN AND MINERAL ORAL) Take by mouth. 0 02/27/2024 Discontinued (Discontinued by Patient) multivit,thx,ofelia cium,iron,mins (MULTIVITAMIN AND MINERAL ORAL) Take by mouth. 0 Active nirmatrelvir tablet 300 mg (150 mg x 2) and ritonavir tablet 100 mg in a dose pack (PAXLOVID) (2 sources) Start: 03-11-2024 End: 03-16-2024 nirmatrelvir tablet 300 mg (150 mg x 2) and ritonavir tablet 100 mg in a dose pack (PAXLOVID) Administer TWO pink nirmatrelvir 150 mg tablets and ONE white ritonavir 100 mg tablet for a total of three tablets twice daily. 30 tablet 03/11/2024 03/16/2024 Active predniSONE 20 mg oral tablet (5 sources) Start: 04-07-2024 End: 04-12-2024 take 2 tablets by mouth once daily predniSONE (DELTASONE) 20 mg tablet Indications: Pain of right hip Take 2 tablets by mouth once daily for 5 days. 10 tablet 04/07/2024 04/12/2024 Active Start: 06-02-2023 predniSONE (DE LTASONE) 10 mg tablet Take 4 daily for three days, then 3 daily for three days, then 2 daily for three days, then one daily for three days. 30 tablet 0 06/02/2023 Active Start: 05-13-2023 End: 05-18-2023 take 4 tablets by mouth once daily predniSONE (DELTASONE) 10 mg tablet Take 4 tablets by mouth once daily for 5 days. 20 tablet 05/13/2023 05/18/2023 Comment on above: Take 4 tablets by mo ut once daily for 5 days. Take 4 daily for thr ee days, then 3 daily for three days, then 2 daily for three days, then one daily for three days. rOPINIRole 0.5 mg oral tablet (20 sources) Nonergot Dopamine Agonist Start: 04-16-2023 End: 01-21-2025 take 1 tablet by mouth once daily at bedtime rOPINIRole (REQUIP) 1 mg tablet Indications: Restless leg Take 1 tablet by mouth daily at bedtime. 90 tablet 1 01/21/2025 Active Start: 01-29-2022 End: 11-04-2022 take 1 tablet by mouth once daily at bedtime rOPINIRole (REQUIP) 1 mg tablet Take 1 tablet by mouth daily at bedtime. 90 tablet 1 11/04/2022 Active Start: 01-02-2021 End: 04-21-2025 take 1 tablet by mouth at bedtime as needed rOPINIRole (REQUIP) 0.5 mg tablet Indications: Restless leg Take 1 tablet by mouth at bedtime as needed (RLS). 90 tablet 01/21/2025 04/21/2025 Active Start: 06-30-2019 End: 04-15-2022 take 1 tablet by mouth every twenty-four hours as needed rOPINIRole (REQUIP) 0.25 mg tablet Take 1 tablet by mouth at bedtime as needed (restless leg). 30 tablet 5 03/13/2020 04/15/2022 Discontinued (Duplicate Entry) Comment on above: Take 1 tablet by rebeca th at bedtime as needed (restless leg). Take 1 tablet by rebeca th daily at bedtime. solifenacin succinate 10 mg oral tablet (20 sources) Cholinergic Muscarinic Antagonist Start: End: take 1 tablet by mouth once daily solifenacin 10 mg tablet Indications: Overflow incontinence Take 1 tablet by mouth once daily. 90 tablet 1 01/25/2025 07/24/2025 Active Start: 07-21-2023 End: 01-25-2025 take 0.5 tablet by mouth once daily solifenacin 10 mg tablet Indications: Overflow incontinence Take 0.5 tablets by mouth once daily. 45 tablet 5 12/24/2024 01/25/2025 Discontinued Comment on above: Take 0.5 tablets by mouth once daily. traZODone hydrochloride 50 mg oral tablet (1 source) Serotonin Reuptake Inhibitor Start: 05-19-2015 traZODone (DESYREL) 50 MG tablet Zinc (4 sources) Start: 08-29-2020 take 25 mg by mouth once daily Zinc Active 25 MG PO DAILY August 29, 2020 1:12pm Start: 08-03-2020 End: 08-29-2020 take 50 mg by mouth once daily Zinc Discontinued 50 MG PO DAILY August 03, 2020 12:00am August 29, 2020 1:14pm Completed/Discontinued Medications Medication Drug Class(es) Dates Sig (Normalized) Sig (Original) acetaminophen 325 mg / oxyCODONE hydrochloride 5 mg oral tablet (6 sources) Opioid Agonist Start: 04-05-2022 End: 06-17-2022 take 1-2 tablets by mouth every four to six hours as needed for pain oxyCODONE-acetami nophen (PERCOCET) 5-325 mg tablet 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 TAKE 1-2 TABLETS BY MOUTH EVERY FOUR TO SIX HOURS NEEDED FOR PAIN 0 04/05/2022 06/17/2022 Discontinued Comment on above: TAKE 1-2 TABLETS BY MOUTH EVERY FOUR TO SIX HOURS NEEDED FOR PAIN amLODIPine 5 mg oral tablet (20 sources) Dihydropyridine Calcium Channel Shaye Start: 06-18-2022 take 5 mg by mouth once daily Amlodipine Active 5 MG PO DAILY June 18, 2022 2:39pm Start: 05-14-2022 End: 10-13-2023 amLODIPine (Norvasc) 5 MG ta blet 05/16/2022 Active Start: 05-08-2021 End: 08-20-2021 take 5 mg by mouth once daily Amlodipine Discontinued 5 MG PO DAILY May 08, 2021 8:57am August 20, 2021 9:35am Start: 09-29-2017 End: 05-08-2021 take 2.5 mg by mouth once daily Amlodipine Discontinue d 2.5 MG PO DAILY September 28, 2017 11:00pm May 08, 2021 8:58am Start: 04-14-2015 End: 06-18-2022 take 1 tablet by mouth once daily amLODIPine (NORVASC) 2.5 mg tablet Indications: Essential hypertension, benign Take 1 tablet by mouth once daily. 90 tablet 3 04/15/2022 05/14/2022 Discontinued Comment on above: Take 1 tablet by rebeca th once daily. aspirin 81 mg delayed release oral tablet (6 sources) Platelet Aggregation Inhibitor, Nonsteroidal Anti-inflammatory Drug End: take 1 tablet by mouth once daily aspirin, enteric coated (ASPIRIN, ENTERIC COATED) 81 mg EC tablet Take 81 mg by mouth once daily. 0 06/17/2022 Discontinued Comment on above: Take 81 mg by mouth once daily. calcium carbonate 625 mg / cholecalciferol 125 unt oral tablet (2 sources) Vitamin D Start: End: Calcium Carbonate-Vitamin D3 Discontinued 1 EACH PO TWICE A DAY September 28, 2017 11:00pm August 29, 2020 1:12pm cetirizine hydrochloride 10 mg oral tablet (1 source) Histamine-1 Receptor Antagonist End: take 1 tablet by mouth once daily cetirizine (ZYRTEC) 10 mg tablet Take 10 mg by mouth once daily. 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 0 06/17/2022 Discontinued Comment on above: Take by mouth. DULoxetine 30 mg delayed release oral capsule (3 sources) Serotonin and Norepinephrine Reuptake Inhibitor Start: End: take 30 mg by mouth once daily Duloxetine Discontinued 30 MG PO DAILY August 29, 2020 12:00am September 05, 2020 4:36pm ferrous sulfate (7 sources) End: ferrous sulfate (IRON ORAL) Take by mouth once daily. 12/24/2024 Discontinued (Duplicate Entry) ferrous sulfate (IRON ORAL) Take by mouth once daily. Active fluticasone (2 sources) Corticosteroid Start: 02-11-2020 End: 07-31-2021 fluticasone propionate (FLON ASE ALLERGY RELIEF NASAL) Use 1 Garrett in the nose once daily. 02/11/2020 07/31/2021 Discontinued End: 10-08-2021 fluticasone propionate (FLON ASE NASAL) Use in the nose. 0 10/08/2021 Discontinued Comment on above: Use in the nose. gabapentin 100 mg oral capsule (18 sources) Anti-epileptic Agent Start: 12-22-2023 End: 03-29-2024 take 1 capsule by mouth twice daily at dinner gabapentin (NEURONTIN) 100 mg capsule Indications: Restless leg , Neuropathy Take 1 capsule by mouth two times a day for 90 days. (dose at lunch time and dose at dinner time) 60 capsule 2 12/22/2023 03/29/2024 Discontinued 12 hr guaiFENesin 600 mg extended release oral tablet (12 sources) Start: 09-21-2024 End: 2025 take 1 tablet by mouth twice daily as needed guaiFENesin (MUCINEX) 600 mg 12 hr tablet Indications: Cough, unspecified type Take 1 tablet by mouth two times a day as needed for cold/allergy symptoms. 60 tablet 5 09/21/2024 12/24/2024 Discontinued (Discontinued by Patient) Start: 05-13-2023 End: 02-06-2024 take 1 tablet by mouth twice daily as needed guaiFENesin (MUCINEX) 600 mg 12 hr tablet Take 1 tablet by mouth two times a day as needed for cold/allergy symptoms (cough) for up to 7 days. 14 tablet 05/13/2023 05/21/2023 Discontinued Comment on above: Take 1 tablet by [facility] th two times a day as needed for cold/allergy symptoms (cough) for up to 7 days. Take 1 tablet by rebeca th two times a day as needed for cold/allergy symptoms (cough). ipratropium bromide 0.042 mg/actuat metered dose nasal spray (3 sources) Anticholinergic Start: 2022 End: 2022 ipratropium bromide (ATROVENT) 42 mcg (0.06 %) nasal spray Use 2 Sprays in the nose twice daily at 6AM and 9PM. 0 07/16/2022 09/18/2022 Discontinued Comment on above: Use 2 Sprays in the nose twice daily at 6AM and 9PM. lidocaine 0.05 mg/mg medicated patch (2 sources) Antiarrhythmic, Amide Local Anesthetic Start: 2019 End: 2020 apply 1 dose topically twice daily Lidocaine Discontinued 1 PATCH TOPICAL TWICE A DAY February 14, 2020 10:42am August 29, 2020 1:13pm meloxicam 15 mg oral tablet (5 sources) Nonsteroidal Anti-inflammatory Drug Start: 2014 End: 2020 take 15 mg by mouth once daily Meloxicam Discontinued 15 MG PO DAILY May 15, 2020 12:00am August 03, 2020 12:48pm Multivitamin preparation (2 sources) Start: 2017 End: 2020 Multivitamin Discontinued 1 EACH PO DAILY September 28, 2017 11:00pm August 03, 2020 12:48pm ondansetron 4 mg disintegrating oral tablet (7 sources) Serotonin-3 Receptor Antagonist Start: 2021 take 1 tablet by mouth every eight hours as needed for nausea ondansetron orally disintegrating (ZOFRAN ODT) 4 mg disintegrating tablet Indications: Viral gastroenteritis Take 1 tablet by mouth every 8 hours as needed for nausea/vomiting. 15 tablet 1 11/05/2021 Active Start: 09-29-2017 End: 05-15-2020 take 4 mg by mouth every eight hours as needed Ondansetron Discontinued 4 MG PO EVERY 8 HOURS NEEDED September 28, 2017 11:00pm May 15, 2020 10:05am Comment on above: Take 1 tablet by rebeca every 8 hours as needed for nausea/vomiting. polyethylene glycol 3350 36574 mg powder for oral solution (20 sources) Osmotic Laxative Start: 02-27-2024 End: 04-29-2024 polyethylene glycol 3350 (MIRALAX) 17 gram/dose powder Indications: Chronic constipation TAKE DAILY NEEDED FOR CONSTIPATION 510 g 5 02/27/2024 04/29/2024 Discontinued (Discontinued by Patient) 20 ml ropivacaine hydrochloride 5 mg/ml injection (1 source) Amide Local Anesthetic Start: 10-19-2021 End: 10-19-2021 ropivacaine (PF) 5 mg/mL (0.5 %) 8 mL injection (NAROPIN) Start: 10-19-2021 End: 10-19-2021 ropivacaine (PF) 5 mg/mL (0. 5 %) 8 mL injection (NAROPIN) tiZANidine 2 mg oral capsule (14 sources) Central alpha-2 Adrenergic Agonist Start: 07-25-2023 End: 09-25-2023 take 1 capsule by mouth every eight hours as needed tiZANidine HCl (ZANAFLEX) 2 mg capsule Take 1 capsule by mouth three times a day as needed (1-2 tabs as tolerated every 8 hours for pain). 30 capsule 0 07/25/2023 09/25/2023 Discontinued Start: 09-20-2022 take 1 capsule by mo [facility] three times daily as needed tiZANidine HCl (ZANAFLEX) 2 mg capsule Indications: Lumbar sprain, initial encounter Take 1 capsule by mouth three times daily as needed. 30 capsule 0 09/20/2022 Active Comment on above: Take 1 capsule by mo [facility] three times daily as needed. Take 1 capsule by mo [facility] three times a day as needed (1-2 tabs as tolerated every 8 hours for pain). 1 ml triamcinolone acetonide 40 mg/ml injection (1 source) Corticosteroid Start: 10-19-2021 End: 10-19-2021 triamcinolone acetonide 80 mg injection (KENALOG 40) Start: 10-19-2021 End: 10-19-2021 triamcinolone acetonide 80 m g injection (KENALOG 40) 24 hr venlafaxine 37.5 mg extended release oral capsule (3 sources) Serotonin and Norepinephrine Reuptake Inhibitor Start: 09-05-2020 End: 09-28-2020 take 37.5 mg by mouth once daily at mealtime Venlafaxine Discontinued 37.5 MG PO DAILY September 05, 2020 12:00am September 28, 2020 9:28am take with food Problems Active Problems Problem Classification Problem Date Documented Da te Episodic/Chronic Abdominal pain (1 source) Generalized abdominal pain; Translations: [Generalized abdominal pain] Episodic Cancer of breast (6 sources) Intraductal carcinoma in situ of right breast; Translations: [Intraductal carcinoma in situ of right breast] Onset: 3 Chronic Cancer; other and unspecified primary (8 sources) H/O Malignant melanoma; Translations: [Personal history of malignant melanoma of skin] Onset: 6 11-29-2015 Episodic Chronic obstructive pulmonary disease and bronchiectasis (20 sources) Simple chronic bronchitis; Translations: [Simple chronic bronchitis] Onset: 3 04-08-2017 Chronic Disorders of lipid metabolism (20 sources) Hyperlipidemia; Translations: [Hyperlipidemia, unspecified] Onset: 3 03-25-2013 Chronic Esophageal disorders (20 sources) Gastroesophageal reflux disease; Translations: [Gastro-esophageal reflux disease without esophagitis] Onset: 3 03-25-2013 Chronic Esophageal disorders (1 source) Esophageal disorders; Translations: [Gastroesophageal reflux disease with esophagitis without hemorrhage] Onset: 3 Essential hypertension (20 sources) Benign essential hypertension; Translations: [Essential (primary) hypertension] Onset: 3 03-25-2013 Chronic Fluid and electrolyte disorders (2 sources) Hypokalemia; Translations: [Hypokalemia] Onset: 5 01-25-2025 Episodic Genitourinary symptoms and ill-defined conditions (4 sources) Overflow incontinence of urine; Translations: [Overflow incontinence] Onset: 5 09-25-2023 Chronic Immunizations and screening for infectious disease (4 sources) Needs influenza immunization; Translations: [Encounter for immunization] Episodic Intestinal infection (1 source) Viral gastroenteritis; Translations: [Viral intestinal infection, unspecified] Episodic Malaise and fatigue (5 sources) Fatigue; Translations: [Other fatigue] Onset: 09-28-2020 Episodic Nutritional deficiencies (2 sources) Vitamin D deficiency; Translations: [Vitamin D deficiency, unspecified] Chronic Osteoarthritis (5 sources) Osteoarthritis of joint of left shoulder region; Translations: [Primary osteoarthritis, left shoulder] Chronic Other and unspecified benign neoplasm (2 sources) Multiple benign melanocytic nevi ; Translations: [Melanocytic nevi, unspecified] 11-18-2023 Episodic Other and unspecified benign neoplasm (2 sources) Melanocytic nevi, unspecified; Translations: [Melanocytic nevi, unspecified] Onset: Episodic Other bone disease and musculoskeletal deformities (20 sources) Osteopenia; Translations: [Other specified disorders of bone density and structure, unspecified site] 07-30-2021 Episodic Other circulatory disease (2 sources) Carotid bruit; Translations: [Other specified symptoms and signs involving the circulatory and respiratory systems] 06-18-2022 Episodic Other circulatory disease (2 sources) Other specified symptoms and signs involving the circulatory and respiratory systems; Translations: [Other symptoms involving cardiovascular system] Episodic Other circulatory disease (1 source) Elevated blood pressure; Translations: [Elevated blood-pressure reading, without diagnosis of hypertension] 02-25-2024 Episodic Other connective tissue disease (3 sources) History of reverse prosthetic total arthroplasty of left shoulder; Translations: [Presence of left artificial shoulder joint] Chronic Other connective tissue disease (2 sources) Trochanteric bursitis; Translations: [Trochanteric bursitis, right hip] 12-27-2020 Episodic Other connective tissue disease (1 source) Tendinitis of hand; Translations: [Other enthesopathies, not elsewhere classified] 10-27-2023 Episodic Other connective tissue disease (2 sources) Pain in right hand; Translations: [Pain in right hand] 10-17-2023 Episodic Other connective tissue disease (1 source) Recurrent falls ; Translations: [Repeated falls] 05-06-2024 Episodic Other diseases of veins and lymphatics (2 sources) Peripheral venous insufficiency; Translations: [Venous insufficiency (chronic) (peripheral)] 09-28-2020 Episodic Other gastrointestinal disorders (1 source) Diarrhea of presumed infectious origin; Translations: [Diarrhea, unspecified] Episodic Other gastrointestinal disorders (1 source) Chronic constipation; Translations: [Other constipation] 02-27-2024 Episodic Other hereditary and degenerative nervous system conditions (20 sources) Restless legs; Translations: [Restless legs syndrome] 03-25-2013 Chronic Other hereditary and degenerative nervous system conditions (4 sources) Restless legs syndrome; Translations: [Restless legs syndrome (RLS)] Onset: Chronic Other lower respiratory disease (2 sources) Cough; Translations: [Subacute cough] 06-02-2023 Episodic Other lower respiratory disease (1 source) Dyspnea; Translations: [Shortness of breath] 09-25-2023 Episodic Other nervous system disorders (4 sources) Polyneuropathy; Translations: [Polyneuropathy, unspecified] 09-28-2020 Chronic Other nervous system disorders (4 sources) Polyneuropathy, unspecified; Translations: [Unspecified hereditary and idiopathic peripheral neuropathy] Onset: Chronic Other nervous system disorders (2 sources) Bilateral peripheral neuropathy of lower limbs; Translations: [Unspecified mononeuropathy of bilateral lower limbs] 09-25-2023 Chronic Other nervous system disorders (2 sources) Neuropathy; Translations: [Polyneuropathy, unspecified] 03-29-2024 Chronic Other nervous system disorders (2 sources) Idiopathic peripheral neuropathy; Translations: [Hereditary and idiopathic neuropathy, unspecified] 11-24-2024 Chronic Other nervous system disorders (2 sources) Other chronic pain; Translations: [Chronic bilateral low back pain without sciatica] Onset: 5 Chronic Other nervous system disorders (2 sources) Hereditary and idiopathic neuropathy, unspecified; Translations: [Idiopathic peripheral neuropathy] Onset: 5 Chronic Other nervous system disorders (1 source) Tremor; Translations: [Tremor, unspecified] 02-25-2024 Episodic Other non-traumatic joint disorders (1 source) Chronic pain of left upper limb; Translations: [Pain in left shoulder] Episodic Other non-traumatic joint disorders (1 source) Hip pain; Translations: [Pain in right hip] 04-07-2024 Episodic Other non-traumatic joint disorders (1 source) Pain in wrist; Translations: [Pain in left wrist] 04-19-2021 Episodic Other nutritional; endocrine; and metabolic disorders (3 sources) History of iron deficiency; Translations: [Personal history of other endocrine, nutritional and metabolic disease] 12-22-2023 Episodic Other nutritional; endocrine; and metabolic disorders (1 source) Personal history of other endocrine, nutritional and metabolic disease; Translations: [History of iron deficiency] Onset: 5 Episodic Other skin disorders (9 sources) Multiple actinic keratoses; Translations: [Actinic keratosis] Onset: 6 11-29-2015 Episodic Other skin disorders (1 source) Skin lesion; Translations: [Disorder of the skin and subcutaneous tissue, unspecified] 01-28-2023 Episodic Other skin disorders (4 sources) Seborrheic keratosis; Translations: [Other seborrheic keratosis] 01-28-2023 Episodic Other skin disorders (1 source) Solar lentigo; Translations: [Other melanin hyperpigmentation] 11-18-2023 Episodic Other upper respiratory disease (20 sources) Sore throat - chronic; Translations: [Chronic pharyngitis] Onset: 1 02-11-2021 Chronic Other upper respiratory disease (2 sources) Seasonal allergic rhinitis; Translations: [Other seasonal allergic rhinitis] Chronic Other upper respiratory infections (4 sources) Posterior rhinorrhea; Translations: [Postnasal drip] Episodic Residual codes; unclassified (3 sources) Bilateral lower limb edema; Translations: [Localized edema] 09-28-2020 Episodic Residual codes; unclassified (1 source) History of right mastectomy; Translations: [Other specified postprocedural states] 04-10-2023 Episodic Residual codes; unclassified (1 source) Other specified postprocedural states; Translations: [S/P lumpectomy, right breast] Onset: 3 Episodic Residual codes; unclassified (3 sources) History of atypical nevus; Translations: [Personal history of other specified conditions] 11-18-2023 Episodic Screening and history of mental health and substance abuse codes (6 sources) Ex-smoker; Translations: [Personal history of nicotine dependence] Onset: 5 12-24-2023 Episodic Skin and subcutaneous tissue infections (1 source) Cellulitis of lower leg; Translations: [Cellulitis of left lower limb] 04-01-2023 Episodic Spondylosis; intervertebral disc disorders; other back problems (2 sources) Degeneration of lumbar intervertebral disc; Translations: [Degeneration of intervertebral disc of lumbar region with discogenic back pain] 11-24-2024 Chronic Sprains and strains (3 sources) Traumatic rupture of rotator cuff; Translations: [Strain of muscle(s) and tendon(s) of the rotator cuff of left shoulder, initial encounter] 08-03-2020 Episodic Thyroid disorders (20 sources) Multinodular goiter; Translations: [Nontoxic multinodular goiter] Onset: 1 02-03-2021 Chronic Unclassified (1 source) Chronic bilateral low back pain without sciatica; Translations: [Chronic bilateral low back pain without sciatica] Onset: 5 Unclassified (1 source) Degeneration of intervertebral disc of lumbar region with discogenic back pain; Translations: [Degeneration of intervertebral disc of lumbar region with discogenic back pain] Onset: 5 Unclassified (1 source) Low back pain, unspecified; Translations: [Low back pain, unspecified] Onset: 5 Unclassified (1 source) Other intervertebral disc degeneration, lumbar region with discogenic back pain only; Translations: [Other intervertebral disc degeneration, lumbar region with discogenic back pain only] Onset: 5 Urinary tract infections (1 source) Urinary tract infectious disease; Translations: [Urinary tract infection, site not specified] Episodic Viral infection (1 source) Viral disease; Translations: [Viral infection, unspecified] 03-10-2024 Episodic Past or Other Problems Problem Classification Problem Date Documented Da te Episodic/Chronic Cancer of breast (4 sources) History of malignant neoplasm of breast; Translations: [Personal history of malignant neoplasm of breast] Onset: 04-10-2023 04-10-2023 Episodic Cancer; other and unspecified primary (5 sources) Personal history of malignant neoplasm of other organs and systems; Translations: [History of squamous cell carcinoma] Onset: 11-29-2015 11-29-2015 Episodic Diabetes mellitus without complication (20 sources) Hyperglycemia; Translations: [Hyperglycemia, unspecified] Onset: 03-02-2019 03-02-2019 Episodic Melanomas of skin (3 sources) History of malignant melanoma of the skin; Translations: [Personal history of malignant melanoma of skin] Onset: 05-12-2024 01-29-2023 Episodic Neoplasms of unspecified nature or uncertain behavior (6 sources) Neoplasm of uncertain behavior of skin; Translations: [Neoplasm of uncertain behavior of skin] Onset: 05-12-2024 11-18-2023 Episodic Nonmalignant breast conditions (20 sources) Cyst of right breast; Translations: [Solitary cyst of right breast] Onset: 07-30-2021 07-30-2021 Episodic Open wounds of extremities (6 sources) Tear of skin; Translations: [Laceration without foreign body of left upper arm, sequela] Onset: 04-29-2024 Episodic Open wounds of extremities (4 sources) Tear of skin; Translations: [Laceration without foreign body of right forearm, initial encounter] Onset: 04-29-2024 Episodic Other and unspecified benign neoplasm (2 sources) Melanocytic nevi of right upper limb, including shoulder; Translations: [Melanocytic nevi of right upper limb, including shoulder] Onset: 05-12-2024 Episodic Other and unspecified benign neoplasm (2 sources) Melanocytic nevi of trunk; Translations: [Melanocytic nevi of trunk] Onset: 05-12-2024 Episodic Other and unspecified benign neoplasm (2 sources) Melanocytic nevi of left upper limb, including shoulder; Translations: [Melanocytic nevi of left upper limb, including shoulder] Onset: 05-12-2024 Episodic Other and unspecified benign neoplasm (2 sources) Melanocytic nevi of right lower limb, including hip; Translations: [Melanocytic nevi of right lower limb, including hip] Onset: 05-12-2024 Episodic Other and unspecified benign neoplasm (2 sources) Melanocytic nevi of left lower limb, including hip; Translations: [Melanocytic nevi of left lower limb, including hip] Onset: 05-12-2024 Episodic Other bone disease and musculoskeletal deformities (1 source) Other specified disorders of bone density and structure, unspecified site; Translations: [Osteopenia, unspecified location] Onset: 07-30-2021 Episodic Other connective tissue disease (20 sources) Nontraumatic complete rupture of rotator cuff of left shoulder; Translations: [Complete rotator cuff tear or rupture of left shoulder, not specified as traumatic] Onset: 07-31-2021 07-31-2021 Episodic Other non-epithelial cancer of skin (20 sources) History of malignant basal cell neoplasm of skin; Translations: [Intraepidermal squamous carcinoma of arm] Onset: 11-29-2015 11-29-2015 Episodic Other non-traumatic joint disorders (3 sources) Pain in right knee; Translations: [Pain in joint, lower leg] Onset: 04-28-2024 04-28-2024 Episodic Other non-traumatic joint disorders (1 source) Pain in right hip; Translations: [Pain of right hip] Onset: 04-07-2024 Episodic Other screening for suspected conditions (not mental disorders or infectious disease) (8 sources) Patient encounter status; Translations: [Encounter for screening mammogram for malignant neoplasm of breast] Onset: 04-10-2023 04-10-2023 Episodic Other skin disorders (2 sources) Actinic keratosis; Translations: [Actinic keratosis] Onset: 04-26-2022 Episodic Other skin disorders (2 sources) Other seborrheic keratosis; Translations: [Other seborrheic keratosis] Onset: 05-12-2024 Episodic Residual codes; unclassified (2 sources) Personal history of other specified conditions; Translations: [Personal history of other specified conditions] Onset: 05-12-2024 Episodic Spondylosis; intervertebral disc disorders; other back problems (20 sources) Neck pain; Translations: [Cervicalgia] Onset: 04-12-2015 04-12-2015 Episodic Results Test Name Value Interpretation Reference Range Facility PT D/C Summary (1)on 025 PT D/C Summary (1) [facility] [place] [address] / REHABILITATION SERVICES DISCHARGE SUMMARY MR#: [id number] Acct: [id number] Name: MARSHALL WU Rep #: [id number] : 1935 89 From: Angel Salas PT, ATC Referring DrStella: Dr. Larry Burdick MD Status: REG RC R Insurance: MEDICARE PART A B [employer] Discharge Summary D/C summary: It has been my pleasure to treat MARSHALL WU referred by Dr. Larry Burdick MD, with the diagnosis of LBP for a total of 5 visit(s). Discharge Date: Please see the following information for a summary of their discharge status. Subjective Subjective: Pt reports she has been strengthening and seeing a chiro. Pain is very low now Pain LBP: Pain Intensity (Out of 10): 2 Overall Improvement % Improvement: 50 Objective Objective/Function: LBP 2/10 Pt is able to ambulate 1020 feet without difficulty Pt is I with HEP Pt has achieved Rx goals Goals Goal 1:: Decrease LBP x 50% to aid with sleep Goal Progress: Goal Met Goal 2:: Pt will be able to ambulate 1000 feet until needing to rest to aid with community mobility Goal Progress: Goal Met Goal 3:: I with HEP Goal Progress: Goal Met Plan Plan: Discharge to [facility] D/C Information d/c sentence: If there are questions or concerns regarding this patient's physical therapy, please feel free to call me at [phone]. Thank you for the referral of this patient. Sincerely, Angel Salas, PT, ATC Balance/Gait/Functional tests Balance/Special Test Scores Oswestry Low Back Score: 14 Improvement % Improvement: 50 02/04/25 1334 CC: Dr. Larry Burdick MD; Dr. Bang Holland MD [facility] Signed Normal [facility] PT D/C Summary (1) [facility] [address] [place] [address] [address] [place] [address] / REHABILITATION SERVICES DISCHARGE SUMMARY MR#: [id number] Acct: [id number] Name: MARSHALL WU Rep #: [id number] : 1935 89 From: Angel Salas PT, ATC Referring Dr.: Dr. Larry Burdick MD Status: REG RC R Insurance: MEDICARE PART A B [employer] Discharge Summary D/C summary: It has been my pleasure to treat MARSHALL WU referred by Dr. Larry Burdick MD, with the diagnosis of LBP for a total of 5 visit(s). Discharge Date: Please see the following information for a summary of their discharge status. Subjective Subjective: Pt reports she has been strengthening and seeing a chiro. Pain is very low now Pain LBP: Pain Intensity (Out of 10): 2 Overall Improvement % Improvement: 50 Objective Objective/Function: LBP 2/10 Pt is able to ambulate 1020 feet without difficulty Pt is I with HEP Pt has achieved Rx goals Goals Goal 1:: Decrease LBP x 50% to aid with sleep Goal Progress: Goal Met Goal 2:: Pt will be able to ambulate 1000 feet until needing to rest to aid with community mobility Goal Progress: Goal Met Goal 3:: I with HEP Goal Progress: Goal Met Plan Plan: Discharge to [facility] D/C Information d/c sentence: If there are questions or concerns regarding this patient's physical therapy, please feel free to call me at [phone]. Thank you for the referral of this patient. Sincerely, Angel Salas, PT, ATC Balance/Gait/Functional tests Balance/Special Test Scores Oswestry Low Back Score: 14 Improvement % Improvement: 50 02/04/25 1334 CC: Dr. Larry Burdick MD; Dr. Bang Holland MD [facility] Signed [facility] 01-25-2025 [facility] Office Visit (FAMPWS ) SEAN WURANDI Chapa ([id number]) 1935 F Date Time Provider Department 01/25/25 12:40 PM [facility] During your visit today, we recorded the following information about you: Pulse Blood pressure Weight 83/minute 138/64 68.9 kg Nadia Brambila APRN.[facility] 01/25/2025 1:21 PM Signed This is a 89 year old female who presents today with: Patient presents with: 6 Month Exam HISTORY OF PRESENT ILLNESS: Marshall Wu is a 89 year old female. Patient presents with: 6 Month Exam Marshall Wu is an 89-year-old female with a history of GERD, thyroid nodules, and OAB, presenting for evaluation of dysphagia and fatigue. Dysphagia: - Recent episode of food impaction while eating at a restaurant; required assistance to dislodge. - Similar incidents in the past, but not as severe. - Taking Nexium BID; occasionally requires additional Tums for symptom relief. - Denies eating large meals or lying down immediately after eating. Fatigue: - Persistent fatigue and lack of energy. - No recent weight loss, fever, chills, headaches, or changes in hearing or vision. - No chest pain, palpitations, or dyspnea. - No new muscle aches or joint pain. - No feelings of hopelessness, helplessness, or suicidal thoughts. Thyroid Nodules: - History of thyroid nodules; one nodule was removed approximately three years ago. - Marshall questions if nodules could be contributing to dysphagia. OAB: - Currently taking solifenacin, but only half a pill. - Mrashall reports some improvement in urinary frequency, now able to go 3-4 hours between voids. - Uncertain if medication is fully effective. PAST MEDICAL HISTORY: PAST MEDICAL HISTORY Diagnosis Date Aortic sclerosis 2012 Found on echo Arthritis of foot Bilateral heel spurs. 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 rOPINIRole (REQUIP) 0.5 mg tablet Take 1 tablet by mouth at bedtime as needed (RLS). hydroCHLOROthiazide 12.5 mg capsule Take 1 capsule by mouth once daily. solifenacin 10 mg tablet Take 0.5 tablets by mouth once daily. budesonide-formoterol (SYMBICORT) 160-4.5 mcg/actuation inhaler Inhale 2 Puffs as instructed two times a day. lisinopril (ZESTRIL) 30 mg tablet Take 1 tablet by mouth once daily. atorvastatin (LIPITOR) 20 mg tablet TAKE 1 TABLET DAILY AT BEDTIME FOR CHOLESTEROL MAGNESIUM ORAL Take by mouth. ESOMEPRAZOLE MAGNESIUM (NEXIUM 24HR ORAL) Take by mouth. No current facility-administered medications for this visit. FAMILY HISTORY Problem Relation Age of Onset Alzheimer's Disease Mother Arthritis Father Stroke Father Breast Cancer Maternal Aunt other (lung cancer) Maternal Aunt Prostate Cancer Son Stroke Other Fatal. Brother in law. Social History Tobacco Use Smoking status: Former Current packs/day: 0.00 Average packs/day: 1.3 packs/day for 32.0 years (41.7 ttl pk-yrs) Types: Cigarettes Start date: 03/10/1954 Quit date: 07/14/1986 Years since quittin.5 Smokeless tobacco: Never Tobacco comments: Parents did not smoke in childhood home. Spouse non smoker. Vaping Use Vaping status: Never Used Substance Use Topics Alcohol use: Yes Comment: Occasional. Drug use: No REVIEW OF SYSTEMS Constitutional: (+) fatigue, (+) malaise, (+) anorexia, (-) weight loss, (-) fever, (-) chills Head: (-) headache Cardiovascular: (+) ankle swelling, (-) chest pain, (-) palpitations Respiratory: (-) cough, (-) wheezing Gastrointestinal: (+) dysphagia, (+) nausea, (+) vomiting, (+) heartburn, (+) constipation, (-) diarrhea Genitourinary: (+) urinary frequency, (-) dysuria, (-) hematuria Musculoskeletal: (-) myalgias, (-) arthralgias Psychiatric: (-) suicidal ideation EXAM: BP 138/64 Pulse 83 Wt 68.9 kg (152 lb) SpO2 98% BMI 26.93 kg/m? PHYSICAL EXAM: GENERAL: NAD, alert and oriented. SKIN: Unremarkable, no rash, multiple skin lesions. HEAD: Normocephalic. NEC (more content not included)... Normal [facility] Comprehensive metabolic 2000 panelon 01-25-2025 Albumin [Mass/Vol] 4.1 g/dL 3.9 - 4.9 g/dL [facility] ALP [Catalytic activity/Vol] 129 U/L High 34 - 123 U/L [facility] ALT [Catalytic activity/Vol] 13 U/L 7 - 38 U/L [facility] Anion gap [Moles/Vol] 13 mmol/L 8 - 15 mmol/L [facility] AST [Catalytic activity/Vol] 16 U/L 13 - 35 U/L [facility] Bilirubin [Mass/Vol] 0.4 mg/dL 0.2 - 1 .3 mg/dL [facility] Calcium [Mass/Vol] 9.4 mg/dL 8.5 - 10. 2 mg/dL [facility] Chloride [Moles/Vol] 92 mmol/L Low 98 - 10 7 mmol/L [facility] CO2 [Moles/Vol] 25 mmol/L 22 - 30 mmol/L [facility] Creatinine [Mass/Vol] 0.58 mg/dL 0.58 - 0.96 mg/dL [facility] GFR/1.73 sq M.predicted among non-blacks MDRD (S/P/Bld) [Vol rate/Area] 87 mL/min/{1.73_m2} - PINF [facility] Comment on above: Estimated Glomerular Filtration Rate (eGFR) is calculated using the 2020 CKD-EPI creatinine equation. This equation utilizes serum creatinine, sex, and age as parameters. The creatinine assay has traceable calibration to isotope dilution-mass spectrometry. Refer to KDIGO guidelines for clinical interpretation. In patients with unstable renal function, e.g. those with acute kidney injury, the eGFR may not accurately reflect actual GFR. Glucose [Mass/Vol] 101 mg/dL High 74 - 99 mg/dL [facility] Comment on above: The [place] Diab[employer] s Association (ADA) provides guidance for cutoff values for fasting glucose and random glucose. The ADA defines fasting as no caloric intake for at least 8 hours. Fasting plasma glucose results between 100 to 125 mg/dL indicate increased risk for diabetes (prediabetes). Fasting plasma glucose results greater than or equal to 126 mg/dL meet the criteria for diagnosis of diabetes. In the absence of unequivocal hyperglycemia, results should be confirmed by repeat testing. In a patient with classic symptoms of hyperglycemia or hyperglycemic crisis, random plasma glucose results greater than or equal to 200 mg/dL meet the criteria for diagnosis of diabetes. Reference: Standards of Medical Care in Diabetes 2016, [place] [employer] Association. Diabetes Care. 2016.39(Suppl 1). Interpretation and review of laboratory results Abnormal [facility] Potassium [Moles/Vol] 4 mmol/L 3.7 - 5.1 mmol/L [facility] Protein [Mass/Vol] 6.9 g/dL 6.3 - 8.0 g/dL [facility] Sodium [Moles/Vol] 130 mmol/L Low 136 - 144 mmol/L [facility] Urea nitrogen [Mass/Vol] 9 mg/dL 7 - 21 mg/dL [facility] Albumin [Mass/Vol] 4.1 g/dL Normal 3.9-4.9 [facility] Comment on above: Order Comment: Speci men Type: BLOOD SPECIMENOrdering Facility: [facility] Address: [address] [place] [address] Performed By: #### 2 4323-8, 82563-7, 3024-7, 3016-3 ####[facility] LABCLIA [id number] [place] [address] [place] ALP [Catalytic activity/Vol] 129 U/L High 34-123 [facility] Comment on above: Order Comment: Speci men Type: BLOOD SPECIMENOrdering Facility: [facility] Address: [address] [place] [address] Performed By: #### 2 4323-8, 56403-2, 3024-7, 3016-3 ####[facility] LABIA [id number] [place] [address] [place] ALT [Catalytic activity/Vol] 13 U/L Normal 7-38 [facility] Comment on above: Order Comment: Speci men Type: BLOOD SPECIMENOrdering Facility: [facility] Address: [address] [place] [address] Performed By: #### 2 4323-8, 76842-1, 3024-7, 3016-3 ####[facility] LABCLIA [id number] [place] [id number] [place] Anion gap [Moles/Vol] 13 mmol/L Normal 8-15 [facility] Comment on above: Order Comment: Speci men Type: BLOOD SPECIMENOrdering Facility: [facility] Address: [address] [place] [address] Performed By: #### 2 4323-8, 70895-4, 3024-7, 3016-3 ####[facility] LABCLIA [id number] [place] [id number] [place] AST [Catalytic activity/Vol] 16 U/L Normal 13-35 [facility] Comment on above: Order Comment: Speci men Type: BLOOD SPECIMENOrdering Facility: [facility] Address: [address] [place] [address] Performed By: #### 2 4323-8, 33143-4, 3024-7, 3016-3 ####[facility] LABCLIA [id number] [place] [address] [place] Bilirubin [Mass/Vol] 0.4 mg/dL Normal 0.2-1.3 [facility] Comment on above: Order Comment: Speci men Type: BLOOD SPECIMENOrdering Facility: [facility] Address: [address] [place] [address] Performed By: #### 2 4323-8, 49884-2, 3024-7, 3016-3 ####[facility] LABCLIA [id number] [place] [id number] [place] Calcium [Mass/Vol] 9.4 mg/dL Normal 8.5-10.2 [facility] Comment on above: Order Comment: Speci men Type: BLOOD SPECIMENOrdering Facility: [facility] Address: [address] [place], [place] [address] Performed By: #### 2 4323-8, 21408-8, 3024-7, 3016-3 ####[facility] LABCLIA [id number] [place] [id number] [place] Chloride [Moles/Vol] 92 mmol/L Low 98-107 [facility] Comment on above: Order Comment: Speci men Type: BLOOD SPECIMENOrdering Facility: [facility] Address: [address] [place] [address] Performed By: #### 2 4323-8, 91735-0, 3024-7, 3016-3 ####[facility] LABCLIA [id number] [place] [id number] [place] CO2 [Moles/Vol] 25 mmol/L Normal 22-30 [facility] Comment on above: Order Comment: Speci men Type: BLOOD SPECIMENOrdering Facility: [facility] Address: [address] [place] [address] Performed By: #### 2 4323-8, 75761-1, 3024-7, 3016-3 ####[facility] LABIA [id number] [place] [address] [place] Creatinine [Mass/Vol] 0.58 mg/dL Normal 0.58-0.96 [facility] Comment on above: Order Comment: Speci men Type: BLOOD SPECIMENOrdering Facility: [facility] Address: [address] [place] [address] Performed By: #### 2 4323-8, 00880-3, 3024-7, 3016-3 ####[facility] LABIA [id number] [place] [id number] [place] eGFRcr SerPlBld CKD-EPI 2020 87 mL/min/1.73m??? Normal >=60 [facility] Comment on above: Order Comment: Speci men Type: BLOOD SPECIMENOrdering Facility: [facility] Address: [address] [place] [address] Result Comment: Kayla mated Glomerular Filtration Rate (eGFR) is calculated using the 2020 CKD-EPI creatinine equation. This equation utilizes serum creatinine, sex, and age as parameters. The creatinine assay has traceable calibration to isotope dilution-mass spectrometry. Refer to KDIGO guidelines for clinical interpretation. In patients with unstable renal function, e.g. those with acute kidney injury, the eGFR may not accurately reflect actual GFR. Performed By: #### 2 4323-8, 47053-0, 3023-7, 6-3 ####[facility] LABCLIA [id number] [facility] [address] [address] [place] Glucose [Mass/Vol] 101 mg/dL High 74-99 [facility] Comment on above: Order Comment: Tejas baldwin Type: BLOOD SPECIMENOrdering Facility: [facility] Address: [address] [place] [address] Result Comment: The [place] Diabetes Association (ADA) provides guidance for cutoff values for fasting glucose and random glucose. The ADA defines fasting as no caloric intake for at least 8 hours. Fasting plasma glucose results between 100 to 125 mg/dL indicate increased risk for diabetes (prediabetes). Fasting plasma glucose results greater than or equal to 126 mg/dL meet the criteria for diagnosis of diabetes. In the absence of unequivocal hyperglycemia, results should be confirmed by repeat testing. In a patient with classic symptoms of hyperglycemia or hyperglycemic crisis, random plasma glucose results greater than or equal to 200 mg/dL meet the criteria for diagnosis of diabetes. Reference: Standards of Medical Care in Diabetes 2016, [place] [employer]. Diabetes Care. 2016.39(Suppl 1). Performed By: #### 2 4323-8, 74795-6, 3023-7, 6-3 ####[facility] LABCLIA [id number] [facility] [address] [address] [place] Potassium [Moles/Vol] 4.0 mmol/L Normal 3.7-5.1 [facility] Comment on above: Order Comment: Tejas baldwin Type: BLOOD SPECIMENOrdering Facility: [facility] Address: [address] [place] [address] Performed By: #### 2 4323-8, 24877-6, 3023-7, 6-3 ####[facility] LABCLIA [id number] [facility] [id number] [place] [address] [place] Protein [Mass/Vol] 6.9 g/dL Normal 6.3-8.0 [facility] Comment on above: Order Comment: Speci men Type: BLOOD SPECIMENOrdering Facility: [facility] Address: [address] [place], [place] [address] Performed By: #### 2 4323-8, 54233-4, 4-7, 3016-3 ####[facility] LABCLIA [id number] [place] [id number] [place] Sodium [Moles/Vol] 130 mmol/L Low 136-144 [facility] Comment on above: Order Comment: Speci men Type: BLOOD SPECIMENOrdering Facility: [facility] Address: [address] [place] [address] Performed By: #### 2 4323-8, 93372-8, 3023-7, 3016-3 ####[facility] LABCLIA [id number] [place] [address] [place] Urea nitrogen [Mass/Vol] 9 mg/dL Normal 7-21 [facility] Comment on above: Order Comment: Speci men Type: BLOOD SPECIMENOrdering Facility: [facility] Address: [address] [place] [address] Performed By: #### 2 4323-8, 96303-2, 3023-7, 3016-3 ####[facility] LABCLIA [id number] [place] [id number] [place] MAGNESIUMon 01-25-2025 Magnesium [Mass/Vol] 2 mg/dL 1.7 - 2 .3 mg/dL [facility] Magnesium SerPl-mCncon 01-25 Magnesium [Mass/Vol] 2.0 mg/dL Normal 1.7-2.3 [facility] Comment on above: Order Comment: Speci men Type: BLOOD SPECIMENOrdering Facility: [facility] Address: [address] [place] [address] Performed By: #### 2 4323-8, 05329-1, 3023-7, 3016-3 ####[facility] LABCLIA [id number] [address] [address] [place] Magnesium [Mass/Vol]on 01-25 Interpretation and review of laboratory results Normal [facility] No Panel Informationon 01-25 Interpretation and review of laboratory results Normal [facility] T4 FREE/FREE THYROXINEon Free T4 [Mass/Vol] 1.6 ng/dL 0.9 - 1.7 ng/dL [facility] T4 Free SerPl-mCncon 025 Free T4 [Mass/Vol] 1.6 ng/dL Normal 0.9-1.7 [facility] Comment on above: Order Comment: Speci men Type: BLOOD SPECIMENOrdering Facility: [facility] Address: [address] [place], [place] [address] Performed By: #### 2 4323-8, 97345-6, 4-7, 3016-3 ####[facility] LABIA [id number] [place] [id number] [place] THYROID STIMULATING HORMONEo n 01-25-2025 TSH Qn 0.91 m[IU]/L [facility] TSH SerPl-aCncon 01-25-2025 TSH Qn 0.910 m[IU]/L Normal 0.270-4.200 [facility] Comment on above: Order Comment: Speci men Type: BLOOD SPECIMENOrdering Facility: [facility] Address: [address] [place], [place] [address] Performed By: #### 2 4323-8, 80483-8, 4-7, 3016-3 ####[facility] LABIA [id number] [place] [id number] [place] Vit B12 SerPl-mCncon 025 Cobalamin (Vitamin B12) [Mass/Vol] 395 pg/mL Normal 232-1245 [facility] Comment on above: Order Comment: Speci men Type: BLOOD SPECIMENOrdering Facility: [facility] Address: [address] [place] [address] Performed By: #### 2 132-9 ####[facility] LABCLMAHAD [id number] [facility] [address] 36on 01-24-2025 36 Called and spoke giancarlo swann patient. See previous TE. [facility] 36 Called and spoke wit h patient explaining bx results. Patient expressed understanding. Patient would like to have the areas evaluated at her next office visit. 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 Technically, we recommend having further treatment at these sites (such as surgery) to be sure they don't recur. But, these were so small and it looks like it go them all out with the biopsy, so maybe that will be enough to keep them from coming back. If you are comfortable with this (I will have my staff call to go over this with you), we can recheck the sites are your next visit to be sure they have resolved, and you can certainly contact me at any time if you have any concerns related to those or other sites. If you wanted to go ahead with further treatment just to be really on the safe side, we can refer you to Dr. Oneill. ----- Message ----- From: Ovalis Deepthi Greco Sent: 01/21/2025 9:55 AM EDT To: Lora Santiago MD [facility] 36 Pt LVM returning call [facility] 36 LVM to attempt to discuss bx results. Encouraged patient to call back 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 Technically, we recommend having further treatment at these sites (such as surgery) to be sure they don't recur. But, these were so small and it looks like it go them all out with the biopsy, so maybe that will be enough to keep them from coming back. If you are comfortable with this (I will have my staff call to go over this with you), we can recheck the sites are your next visit to be sure they have resolved, and you can certainly contact me at any time if you have any concerns related to those or other sites. If you wanted to go ahead with further treatment just to be really on the safe side, we can refer you to Dr. Oneill. ----- Message ----- From: Ovalis Automated UserDeepthi Sent: 01/21/2025 9:55 AM EDT To: Lora Santiago MD [facility] 36 Please see result no te sent to patient below. Please call her to go over this: I think the sites were so small and were likely removed by the biopsy, so it is reasonable to just let the sites heal and keep an eye on them to be sure they are not trying to recur. If they did recur, we can always have her go to Dr. Oneill then to have them excised. Or, if she prefers to err on the side of caution, she can go to Dr. Oneill to get these site treated now, but again, I think it is reasonable to just keep an eye on them if she is comfortable with that. Please let me know what she says. 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 Technically, we recommend having further treatment at these sites (such as surgery) to be sure they don't recur. But, these were so small and it looks like it go them all out with the biopsy, so maybe that will be enough to keep them from coming back. If you are comfortable with this (I will have my staff call to go over this with you), we can recheck the sites are your next visit to be sure they have resolved, and you can certainly contact me at any time if you have any concerns related to those or other sites. If you wanted to go ahead with further treatment just to be really on the safe side, we can refer you to Dr. Oneill. [facility] CNOVon 01-21-2025 CNOV Office Visit (NEMOWS ) MARSHALL WU ([id number]) 1935 F Date Time Provider Department 01/21/25 10:20 AM BANG PLUMMER JR During your visit today, we recorded the following information about you: Pulse Respiration Blood pressure Weight 88/minute 16/minute 138/74 68.5 kg Bang Plummer Jr., MD 01/21/2025 10:52 AM Signed ESTABLISHED PATIENT VISIT CHIEF COMPLAINT: Follow Up HISTORY OF PRESENT ILLNESS: Marshall Wu is a 89 year old female, with a PMH significant for and per last office visit of 07/16/24: 1. Restless leg - ICD9: 333.94, ICD10: G25.81 (primary diagnosis) Stable with Requip 1mg and magnesium supplement at bedtime. Patient not wanting to make changes to current medication regimen. She is aware of risks of augmentation with Requip use. Refills provided. Regarding Fe supplement, both Fe and Ferritin improved on most recent levels in 03/2024. Recommended patient reduce supplement to 1 tab of FeSO4 325mg daily. 2. History of iron deficiency - ICD9: V12.3, ICD10: Z86.39 As above. 3. Peripheral polyneuropathy - ICD9: 356.9, ICD10: G62.9 Exam stable and consistent with peripheral polyneuropathy. Etiology still unknown with extensive workup showing no obvious cause, although glucose has bee increasing. Patient not wanting to try higher dose of gabapentin. Pt feels symptoms of discomfort not significant so as to need medication. Discussed options including gabapentin and lyrica. Will reevaluate in 6 months or sooner prn. Still actively playing golf. Following with PCP for recent bout of feeling tired - started on golf course. Recent labs show mild hyponatremia. States eating well. Drinking plenty of fluids. No diarrhea. I think age is catching up with me. Feels RLS is stable on Requip 1mg daily and uses the prn 0.5mg every now and then - estimates maybe once per week. States neuropathy is not causing any pain, but just an odd feeling. That said, pt emphasizes she would not want additional meds. Does best if walking flat surface - a bit unsteady on age. No longer on Fe supplements - does not feel it made RLS worse since stopping. REVIEW OF SYSTEMS GENERAL:No weight loss, malaise or fevers. HEENT:Negative for frequent or significant headaches, No changes in hearing or vision, no nose bleeds or other nasal problems NECK:Negative for lumps, goiter, pain and significant neck swelling RESPIRATORY: Negative for cough, wheezing or shortness of breath. CARDIOVASCULAR: Negative for chest pain, leg swelling or palpitations. GASTROINTESTINAL: Negative for abdominal discomfort, blood in stools or black stools or change in bowel habits GENITOURINARY: No history of dysuria, frequency or incontinence MUSCULOSKELETAL: Negative for joint pain or swelling, back pain or muscle pain. NEUROLOGIC:Negative for focal numbness or weakness, headaches and dizziness or syncope, vision changes, speech/languag changes - EXCEPT that as per HPI above. SKIN:Negative for lesions, rash, and itching. LAB/IMAGING: Those performed since patient's last visit have been reviewed. WBC (k/uL) Date Value 01/17/2025 5.71 RBC (m/uL) Date Value 01/17/2025 4.54 Hemoglobin (g/dL) Date Value 01/17/2025 13.4 Hematocrit (%) Date Value 01/17/2025 41.1 MCV (fL) Date Value 01/17/2025 90.5 MCH (pg) Date Value 01/17/2025 29.5 MCHC (g/dL) Date Value 01/17/2025 32.6 RDW-CV (%) Date Value 01/17/2025 13.6 Platelet Count (k/uL) Date Value 01/17/2025 319 MPV (fL) Date Value 01/17/2025 10.3 Glucose (mg/dL) Date Value 01/17/2025 132 (H) BUN (mg/dL) Date Value 01/17/2025 13 Creatinine (mg/dL) Date Value 01/17/2025 0.64 Sodium (mmol/L) Date Value 01/17/2025 131 (L) Potassium (mmol/L) Date Value 01/17/2025 3.6 (L) Chloride (mmol/L) Date Value 01/17/2025 95 (L) CO2 (mmol/L) Date Value 01/17/2025 25 Protein, Total (g/dL) Date Value 01/17/2025 6.6 Albumin (g/dL) Date Value 01/17/2025 4.0 Calcium, Total (mg/dL) Date Value 01/17/2025 9.3 Alkaline Phosphatase (U/L) Date Value 01/17/2025 124 (H) Bilirubin, Total (mg/dL) Date Value 01/17/2025 0.3 AST (U/L) Date Value 01/17/2025 12 (L) ALT (U/L) Date Value 01/17/2025 9 [place] (no units) Date Value 01/10/2024 Positive (A) SSA Antibody IgG (AI) Date Value 01/10/2024 <0.2 SSB Antibody (AI) Date Value 01/10/2024 <0.2 URINALYSIS SSA Antibody IgG Date Value Ref Range Status 01/10/2024 <0.2 <1.0 AI Final Comment: Test Methodology: Multiplex flow immunoassay. Latest Reference Range AND Units 03/29/24 12:06 Ferritin 14.7 - 205.1 ng/mL 92.1 Iron 41 - 186 ug/dL 81 TIBC 232 - 386 ug/dL 239 Transferrin Saturation 15.0 - 57.0 % 33.9 MEDICATIONS: hydroCHLOROthiazide 12.5 mg capsule Take 1 capsule by mouth once daily. solifenacin 10 mg tablet Take 0.5 tablets by rebeca (more content not included)... Normal [facility] Cryotherapy, skin lesionon 0 01-19-2025 [facility] Office Visiton 01-19-2025 Follow-up visit [id number] Marshall Wu 1935 F Date Provider Department Center 01/19/2025 [address]-VEJSLORA SANTIAGO [facility] None Family History Problem Relation Age of Onset Other Other Comments: No family hx of MM Family Status - Relation Status Age at Other Level of Service:[address] [place] OFFICE/OUTPATIENT ESTABLISHED LOW MDM 20 MIN (25) Reason for Visit and Comments: Skin Check [779] - YVROSE-05/12/2024,DONALDO Normal [facility] Progress Noteon 01-19-2025 Progress Note DATE OF SERVICE: 01/19/2025 PATIENT NAME: Marshall Wu : 1935 AGE: 89 y.o. CLINIC NUMBER: [id number] Visit type: Established patient Chief Complaint Patient presents with Skin Check YVROSE-05/12/2024,ZB Subjective HISTORY OF PRESENT ILLNESS: This is a 89 y.o. female who presents for an upper body exam; last seen 05/12/2024. 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 The patient has no family history of skin cancer, no family history of melanoma, there is a history of excessive sun exposure, patient has never used tanning beds, does not use sunscreen regularly. 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 Patient was also given efudex to left jehovah's witness. Patient states she did get prescribed efudex. Admits redness, Patient does believe that the areas have resolved. C/o-skin lesion located on the left forearm x couple months Patient states the lesions a are pink raised areas Denies itching, bleeding, pain. Denies changes in size, shape, color. Denies previous treatment. History of pacemaker/ defibrillator? No History of HIV/ Hep C? No Allergies to Lidocaine, Epinephrine, Latex or Adhesive? No Review of Systems Vitals: 01/19/25 1104 BP: 137/75 Pulse: 76 Temp: 36.6 ?C (97.8 ?F) PHYSICAL EXAM GENERAL APPEARANCE:?Alert & oriented x3, pleasant. Well developed, well nourished. PSYCH: appropriate mood and affect DERMATOLOGY: Please see diagram of patient examination (all noted lesions were examined dermoscopically; all measured lesions are pigmented macules with benign nevus patterns, unless otherwise noted) Skin Exam 1. NEOPLASM OF UNCERTAIN BEHAVIOR OF SKIN (2) Left Forearm - Posterior 4mm keratotic papule/cutaneous horn Skin Biopsy Type of biopsy: tangential Informed consent: discussed and consent obtained Timeout: patient name, date of , surgical site, and procedure verified Anesthesia: the lesion was anesthetized in a standard fashion Anesthetic: 1% lidocaine w/ epinephrine 1-100,000 buffered w/ 8.4% NaHCO3 Instrument used: DermaBlade Outcome: patient tolerated procedure well Post-procedure details: wound care instructions given Specimen A - Tissue exam Differential Diagnosis: Cutaneous horn R/O SCC Check Margins: No Right Upper Arm - Posterior 3mm keratotic papule/cutaneous horn Skin Biopsy Type of biopsy: tangential Informed consent: discussed and consent obtained Timeout: patient name, date of , surgical site, and procedure verified Anesthesia: the lesion was anesthetized in a standard fashion Anesthetic: 1% lidocaine w/ epinephrine 1-100,000 buffered w/ 8.4% NaHCO3 Instrument used: DermaBlade Outcome: patient tolerated procedure well Post-procedure details: wound care instructions given Specimen B - Tissue exam Differential Diagnosis: Cutaneous horn R/O SCC Check Margins: No Biopsy recommended. Patient expresses understanding and is in agreement with the plan. Biopsy (x2) obtained today. Patient educated that we will call with the biopsy results within 2 weeks. Care instructions reviewed and written instructions provided to patient. 2. ACTINIC KERATOSES (5) Left Elbow, Right Mu-Ism (4) [place] scaly papules Patient educated on actinic keratosis and the possibility of transformation into SCC. Treatment options are discussed with risks and benefits reviewed. Cryotherapy is agreed upon and performed. Reassured that redness, swelling and the formation of a blister at the site of cryotherapy are possible reactions. After care instructions are given and reviewed. Patient to apply Vaseline to treated sites while healing. Patient to monitor for resolution. If unresolved after 2-3 months, patient to return for further evaluation and management Cryotherapy Actinic Keratosis: Medical Necessity: It was explained to the patient that actinic keratoses are precancerous. Consent: The patient understood all the risks and benefits prior to treatment. The risks explained included scarring, hyper and/or hypopigmentation. Although this treatment is highly effective, recurrences do occur and this was explained to the patient. The patient further understood that these lesions are precancerous and may develop into a malignancy. Method: Liquid nitrogen was used to treat the lesion(s) with two freeze-thaw cycles. Number of lesions treated/ location: R jehovah's witness x 4, L elbow x1. Post-op: The patient was instructed to clean the site normally twice a day. Signs of infection were reviewed and patie (more content not included)... Normal [facility] Skin Biopsyon 01-19-2025 Type of biopsy: tangential Informed consent: discussed and consent obtained Timeout: patient name, date of , surgical site, and procedure verified Anesthesia: the lesion was anesthetized in a standard fashion Anesthetic: 1% lidocaine w/ epinephrine 1-100,000 buffered w/ 8.4% NaHCO3 Instrument used: DermaBlade Outcome: patient tolerated procedure well Post-procedure details: wound care instructions given [facility] Type of biopsy: tangential Informed consent: discussed and consent obtained Timeout: patient name, date of , surgical site, and procedure verified Anesthesia: the lesion was anesthetized in a standard fashion Anesthetic: 1% lidocaine w/ epinephrine 1-100,000 buffered w/ 8.4% NaHCO3 Instrument used: DermaBlade Outcome: patient tolerated procedure well Post-procedure details: wound care instructions given [facility] CBC W Auto Differential pane l (Bld)on 01-17-2025 Basophils (Bld) [#/Vol] 0.05 10*3/uL [facility] Basophils/100 WBC (Bld) 0.9 % [facility] Differential cell count method Nom (Bld) Auto [facility] Eosinophils (Bld) [#/Vol] 0.13 10*3/uL [facility] Eosinophils/100 WBC (Bld) 2.3 % [facility] Erythrocyte distribution width (RBC) [Ratio] 13.6 % 11.5 - 15.0 % [facility] Hematocrit (Bld) [Volume fraction] 41.1 % 36.0 - 46.0 % [facility] Hemoglobin (Bld) [Mass/Vol] 13.4 g/dL 11.5 - 15.5 g/dL [facility] Immature granulocytes (Bld) [#/Vol] 0.03 10*3/uL [facility] Immature granulocytes/100 WBC (Bld) 0.5 % [facility] Interpretation and review of laboratory results Abnormal [facility] Lymphocytes (Bld) [#/Vol] 0.97 10*3/uL Low [facility] Lymphocytes/100 WBC (Bld) 17 % [facility] MCH (RBC) [Entitic mass] 29.5 pg 26.0 - 34.0 pg [facility] MCHC (RBC) [Mass/Vol] 32.6 g/dL 30.5 - 36.0 g/dL [facility] MCV (RBC) [Entitic vol] 90.5 fL 80.0 - 100.0 fL [facility] Monocytes (Bld) [#/Vol] 0.56 10*3/uL [facility] Monocytes/100 WBC (Bld) 9.8 % [facility] Neutrophils (Bld) [#/Vol] 3.97 10*3/uL [facility] Neutrophils/100 WBC (Bld) 69.5 % [facility] Nucleated RBC (Bld) [#/Vol] NINF [facility] Nucleated RBC/100 WBC (Bld) [Ratio] 0 % /100 WBC [facility] Platelet mean volume (Bld) [Entitic vol] 10.3 fL 9.0 - 12.7 fL [facility] Platelets (Bld) [#/Vol] 319 10*3/uL [facility] RBC (Bld) [#/Vol] 4.54 10*6/uL 3.90 - 5.2 0 m/uL [facility] WBC (Bld) [#/Vol] 5.71 10*3/uL [facility] Basophils (Bld) [#/Vol] 0.05 10*3/uL Normal <0.11 [facility] Comment on above: Order Comment: Speci men Type: BLOOD SPECIMENOrdering Facility: [facility] Address: [address] [place] [address] Performed By: #### 5 7021-8 ####[facility] LABCLIA [id number] [address] OF [facility] Basophils/100 WBC (Bld) 0.9 % Normal [facility] Comment on above: Order Comment: Speci men Type: BLOOD SPECIMENOrdering Facility: [facility] Address: [address] [place] [address] Performed By: #### 5 7021-8 ####[facility] LABCLIA [id number] [address], [place] [address] [place] Differential cell count method Nom (Bld) Auto Normal [facility] Comment on above: Order Comment: Speci men Type: BLOOD SPECIMENOrdering Facility: [facility] Address: [address] [place] [address] Performed By: #### 5 7021-8 ####[facility] LABCLIA [id number] [address], [place] [address] [place] Eosinophils (Bld) [#/Vol] 0.13 10*3/uL Normal <0.46 [facility] Comment on above: Order Comment: Speci men Type: BLOOD SPECIMENOrdering Facility: [facility] Address: [address] [place] [address] Performed By: #### 5 7021-8 ####[facility] LABCLIA [id number] [place] [address] [place] Eosinophils/100 WBC (Bld) 2.3 % Normal [facility] Comment on above: Order Comment: Speci men Type: BLOOD SPECIMENOrdering Facility: [facility] Address: [address] [place] [address] Performed By: #### 5 7021-8 ####[facility] LABCLIA [id number] [place] [address] [place] Erythrocyte distribution width (RBC) [Ratio] 13.6 % Normal 11.5-15.0 [facility] Comment on above: Order Comment: Speci men Type: BLOOD SPECIMENOrdering Facility: [facility] Address: [address] [place] [address] Performed By: #### 5 7021-8 ####[facility] LABCLIA [id number] [place] [address] [place] Hematocrit (Bld) [Volume fraction] 41.1 % Normal 36.0-46.0 [facility] Comment on above: Order Comment: Speci men Type: BLOOD SPECIMENOrdering Facility: [facility] Address: [address] [place] [address] Performed By: #### 5 7021-8 ####[facility] LABCLIA [id number] [place] [address] [place] Hemoglobin (Bld) [Mass/Vol] 13.4 g/dL Normal 11.5-15.5 [facility] Comment on above: Order Comment: Speci men Type: BLOOD SPECIMENOrdering Facility: [facility] Address: [address] [place] [address] Performed By: #### 5 7021-8 ####[facility] LABCLIA [id number] [place] [address] [place] Immature granulocytes (Bld) [#/Vol] 0.03 10*3/uL Normal <0.10 [facility] Comment on above: Order Comment: Speci men Type: BLOOD SPECIMENOrdering Facility: [facility] Address: [address] [place] [address] Performed By: #### 5 7021-8 ####[facility] LABCLIA [id number] [place] [address] [place] Immature granulocytes/100 WBC (Bld) 0.5 % Normal [facility] Comment on above: Order Comment: Speci men Type: BLOOD SPECIMENOrdering Facility: [facility] Address: [address] [place] [address] Performed By: #### 5 7021-8 ####[facility] LABCLIA [id number] [place] [id number] [place] Lymphocytes (Bld) [#/Vol] 0.97 10*3/uL Low 1.00-4.00 [facility] Comment on above: Order Comment: Speci men Type: BLOOD SPECIMENOrdering Facility: [facility] Address: [address] [place] [address] Performed By: #### 5 7021-8 ####[facility] LABCLIA [id number] [place] [address] [place] Lymphocytes/100 WBC (Bld) 17.0 % Normal [facility] Comment on above: Order Comment: Speci men Type: BLOOD SPECIMENOrdering Facility: [facility] Address: [address] [place] [address] Performed By: #### 5 7021-8 ####[facility] LABCLIA [id number] [place] [address] [place] MCH (RBC) [Entitic mass] 29.5 pg Normal 26.0-34.0 [facility] Comment on above: Order Comment: Speci men Type: BLOOD SPECIMENOrdering Facility: [facility] Address: [address] [place] [address] Performed By: #### 5 7021-8 ####[facility] LABIA [id number] [place] [address] [place] MCHC (RBC) [Mass/Vol] 32.6 g/dL Normal 30.5-36.0 [facility] Comment on above: Order Comment: Speci men Type: BLOOD SPECIMENOrdering Facility: [facility] Address: [address] [place] [address] Performed By: #### 5 7021-8 ####[facility] LABIA [id number] [place] [address] [place] MCV (RBC) [Entitic vol] 90.5 fL Normal 80.0-100.0 [facility] Comment on above: Order Comment: Speci men Type: BLOOD SPECIMENOrdering Facility: [facility] Address: [address] [place] [address] Performed By: #### 5 7021-8 ####[facility] LABCLIA [id number] [place] [address] [place] Monocytes (Bld) [#/Vol] 0.56 10*3/uL Normal <0.87 [facility] Comment on above: Order Comment: Speci men Type: BLOOD SPECIMENOrdering Facility: [facility] Address: [address] [place] [address] Performed By: #### 5 7021-8 ####[facility] LABCLIA [id number] [address] [address] [place] Monocytes/100 WBC (Bld) 9.8 % Normal [facility] Comment on above: Order Comment: Speci men Type: BLOOD SPECIMENOrdering Facility: [facility] Address: [address] [place] [address] Performed By: #### 5 7021-8 ####[facility] LABIA [id number] [place] [address] [place] Neutrophils (Bld) [#/Vol] 3.97 10*3/uL Normal 1.45-7.50 [facility] Comment on above: Order Comment: Speci men Type: BLOOD SPECIMENOrdering Facility: [facility] Address: [address] [place] [address] Performed By: #### 5 7021-8 ####[facility] LABCLIA [id number] [place] [address] [place] Neutrophils/100 WBC (Bld) 69.5 % Normal [facility] Comment on above: Order Comment: Speci men Type: BLOOD SPECIMENOrdering Facility: [facility] Address: [address] [place] [address] Performed By: #### 5 7021-8 ####[facility] LABCLIA [id number] [place] [id number] [place] Nucleated RBC (Bld) [#/Vol] 10*3/uL Normal <0.01 [facility] Comment on above: Order Comment: Speci men Type: BLOOD SPECIMENOrdering Facility: [facility] Address: [address] [place] [address] Performed By: #### 5 7021-8 ####[facility] LABCLIA [id number] [address] [place] [address] [place] Nucleated RBC/100 WBC (Bld) [Ratio] 0.0 /100 WBC Normal [facility] Comment on above: Order Comment: Speci men Type: BLOOD SPECIMENOrdering Facility: [facility] Address: [address] [place] [address] Performed By: #### 5 7021-8 ####[facility] LABIA [id number] [address], [facility] [place] Platelet mean volume (Bld) [Entitic vol] 10.3 fL Normal 9.0-12.7 [facility] Comment on above: Order Comment: Speci men Type: BLOOD SPECIMENOrdering Facility: [facility] Address: [address] [place] [address] Performed By: #### 5 7021-8 ####[facility] LABIA [id number] [place] [address] [place] Platelets (Bld) [#/Vol] 319 10*3/uL Normal 150-400 [facility] Comment on above: Order Comment: Speci men Type: BLOOD SPECIMENOrdering Facility: [facility] Address: [address] [place] [address] Performed By: #### 5 7021-8 ####[facility] LABIA [id number] [place] [id number] [place] RBC (Bld) [#/Vol] 4.54 10*6/uL Normal 3.90-5.20 [facility] Comment on above: Order Comment: Speci men Type: BLOOD SPECIMENOrdering Facility: [facility] Address: [address] [place] [address] Performed By: #### 5 7021-8 ####[facility] LABIA [id number] [address] [place] [address] [place] WBC (Bld) [#/Vol] 5.71 10*3/uL Normal 3.70-11.00 [facility] Comment on above: Order Comment: Speci men Type: BLOOD SPECIMENOrdering Facility: [facility] Address: [address] [place] [address] Performed By: #### 5 7021-8 ####[facility] LABCLIA [id number] [address] [place] CK SerPl-cCncon 01-17-2025 CK [Catalytic activity/Vol] 58 U/L Normal 42-196 [facility] Comment on above: Order Comment: Speci men Type: BLOOD SPECIMENOrdering Facility: [facility] Address: [address] [place] [address] Performed By: #### 2 157-6, 23352-0, 64688-2 ####[facility] LABCLIA [id number] [address] OF [facility] CNOVon 01-17-2025 CNOV Office Visit (FAMPWS ) MARSHALL WU Sammi ([id number]) 1935 F Date Time Provider Department 01/17/25 9:00 AM NADIA BRAMBILA FAMPWS During your visit today, we recorded the following information about you: Pulse Blood pressure Weight 85/minute 138/64 69.4 kg Nadia Brambila, [employer]AD 01/17/2025 9:30 AM Signed This is a 89 year old female who presents today with: Patient presents with: 6 Month Exam HISTORY OF PRESENT ILLNESS: Marshall Wu is a 89 year old female. Patient presents with: 6 Month Exam Marshall Wu is an 89-year-old female with a history of COPD, presenting for evaluation of fatigue, GERD, and edema. Fatigue: - Onset since Friday. - Denies fever, chills, headaches, blurred vision, or weight loss. - Decreased appetite attributed to hot weather. - Denies nausea, emesis, or dizziness. - Denies chest pain. - Denies orthopnea. - Denies anhedonia or feelings of depression or hopelessness. GERD: - Increased symptoms recently, including acid indigestion and heartburn. - Symptoms occur in the morning and at night; denies eating before bed. - Denies waking up with a bad taste in the mouth; reports dry mouth due to sleeping with mouth open. - Taking OTC Nexium BID (morning and dinner). - Denies cough or wheezing. Edema: - Marshall noted swelling in the left ankle. - Marshall has a scar on the left ankle from a previous injury. PAST MEDICAL HISTORY: PAST MEDICAL HISTORY Diagnosis Date Aortic sclerosis 2012 Found on echo Arthritis of foot Bilateral heel spurs. 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 rOPINIRole (REQUIP) 0.5 mg tablet Take 1 tablet by mouth at bedtime as needed (RLS). budesonide-formoterol (SYMBICORT) 160-4.5 mcg/actuation inhaler Inhale 2 Puffs as instructed two times a day. rOPINIRole (REQUIP) 1 mg tablet Take 1 tablet by mouth daily at bedtime. lisinopril (ZESTRIL) 30 mg tablet Take 1 tablet by mouth once daily. atorvastatin (LIPITOR) 20 mg tablet TAKE 1 TABLET DAILY AT BEDTIME FOR CHOLESTEROL MAGNESIUM ORAL Take by mouth. hydroCHLOROthiazide 12.5 mg capsule Take 1 capsule by mouth once daily. ESOMEPRAZOLE MAGNESIUM (NEXIUM 24HR ORAL) Take by mouth. No current facility-administered medications for this visit. FAMILY HISTORY Problem Relation Age of Onset Alzheimer's Disease Mother Arthritis Father Stroke Father Breast Cancer Maternal Aunt other (lung cancer) Maternal Aunt Prostate Cancer Son Stroke Other Fatal. Brother in law. Social History Tobacco Use Smoking status: Former Current packs/day: 0.00 Average packs/day: 1.3 packs/day for 32.0 years (41.7 ttl pk-yrs) Types: Cigarettes Start date: 03/10/1955 Quit date: 07/14/1986 Years since quittin.5 Smokeless tobacco: Never Tobacco comments: Parents did not smoke in childhood home. Spouse non smoker. Vaping Use Vaping status: Never Used Substance Use Topics Alcohol use: Yes Comment: Occasional. Drug use: No REVIEW OF SYSTEMS Constitutional: (+) malaise, (+) fatigue, (-) fever, (-) chills, (-) weight loss Head: (-) headache Eyes: (-) blurred vision Ears/Nose/Mouth/Throat: (+) rhinorrhea, (+) dry mouth, (-) dysgeusia Cardiovascular: (+) palpitations, (+) left ankle swelling Respiratory: (-) shortness of breath, (-) cough, (-) wheezing Gastrointestinal: (+) heartburn, (+) decreased appetite, (-) nausea, (-) vomiting Neurological: (-) dizziness EXAM: BP 138/64 Pulse 85 Wt 69.4 kg (153 lb) SpO2 97% BMI 27.10 kg/m? PHYSICAL EXAM: GENERAL: NAD, alert and oriented SKIN: Unremarkable, no rash or skin lesions. Scar on left medial ankle. NOSE/SINUSES: Nares normal. Septum midline. Mild swelling noted, suggestive of allergies. OROPHARYNX: Lips, mucosa, and tongue normal, good dentition. Mild erythema noted in the oropharynx. NECK: Supple, no lymphadenopathy, normal thyroid, no carotid bruits. LUNGS: Clear to auscultation bilaterally, no whe (more content not included)... Normal [facility] CREATINE KINASE/CKon 025 CK [Catalytic activity/Vol] 58 U/L 42 - 196 U/L [facility] Comprehensive metabolic 2000 panelon 01-17-2025 Albumin [Mass/Vol] 4 g/dL 3.9 - 4.9 g/dL [facility] ALP [Catalytic activity/Vol] 124 U/L High 34 - 123 U/L [facility] ALT [Catalytic activity/Vol] 9 U/L 7 - 38 U/L [facility] Anion gap [Moles/Vol] 11 mmol/L 8 - 15 mmol/L [facility] AST [Catalytic activity/Vol] 12 U/L Low 13 - 35 U/L [facility] Bilirubin [Mass/Vol] 0.3 mg/dL 0.2 - 1 .3 mg/dL [facility] Calcium [Mass/Vol] 9.3 mg/dL 8.5 - 10. 2 mg/dL [facility] Chloride [Moles/Vol] 95 mmol/L Low 98 - 10 7 mmol/L [facility] CO2 [Moles/Vol] 25 mmol/L 22 - 30 mmol/L [facility] Creatinine [Mass/Vol] 0.64 mg/dL 0.58 - 0.96 mg/dL [facility] GFR/1.73 sq M.predicted among non-blacks MDRD (S/P/Bld) [Vol rate/Area] 85 mL/min/{1.73_m2} - PINF [facility] Comment on above: Estimated Glomerular Filtration Rate (eGFR) is calculated using the 2020 CKD-EPI creatinine equation. This equation utilizes serum creatinine, sex, and age as parameters. The creatinine assay has traceable calibration to isotope dilution-mass spectrometry. Refer to KDIGO guidelines for clinical interpretation. In patients with unstable renal function, e.g. those with acute kidney injury, the eGFR may not accurately reflect actual GFR. Glucose [Mass/Vol] 132 mg/dL High 74 - 99 mg/dL [facility] Comment on above: The [place] [employer] Association (ADA) provides guidance for cutoff values for fasting glucose and random glucose. The ADA defines fasting as no caloric intake for at least 8 hours. Fasting plasma glucose results between 100 to 125 mg/dL indicate increased risk for diabetes (prediabetes). Fasting plasma glucose results greater than or equal to 126 mg/dL meet the criteria for diagnosis of diabetes. In the absence of unequivocal hyperglycemia, results should be confirmed by repeat testing. In a patient with classic symptoms of hyperglycemia or hyperglycemic crisis, random plasma glucose results greater than or equal to 200 mg/dL meet the criteria for diagnosis of diabetes. Reference: Standards of Medical Care in Diabetes 2016, [place] [employer]. Diabetes Care. 2016.39(Suppl 1). Interpretation and review of laboratory results Abnormal [facility] Potassium [Moles/Vol] 3.6 mmol/L Low 3.7 - 5.1 mmol/L [facility] Protein [Mass/Vol] 6.6 g/dL 6.3 - 8.0 g/dL [facility] Sodium [Moles/Vol] 131 mmol/L Low 136 - 144 mmol/L [facility] Urea nitrogen [Mass/Vol] 13 mg/dL 7 - 21 mg/dL [facility] Albumin [Mass/Vol] 4.0 g/dL Normal 3.9-4.9 [facility] Comment on above: Order Comment: Tejas baldwin Type: BLOOD SPECIMENOrdering Facility: [facility] Address: [address] [place] [address] Performed By: #### 2 157-6, 06360-0, ####[facility] LABCLIA [id number] [place] [address] [place] ALP [Catalytic activity/Vol] 124 U/L High 34-123 [facility] Comment on above: Order Comment: Tejas baldwin Type: BLOOD SPECIMENOrdering Facility: [facility] Address: [address] [place] [address] Performed By: #### 2 157-6, 56476-6, 46088-4 ####[facility] LABCLIA [id number] [place] [id number] [place] ALT [Catalytic activity/Vol] 9 U/L Normal 7-38 [facility] Comment on above: Order Comment: Tejas baldwin Type: BLOOD SPECIMENOrdering Facility: [facility] Address: [address] [place] [address] Performed By: #### 2 157-6, 61090-5, 22483-9 ####[facility] LABCLIA [id number] 73 [address] [address] [place] Anion gap [Moles/Vol] 11 mmol/L Normal 8-15 [facility] Comment on above: Order Comment: Speci men Type: BLOOD SPECIMENOrdering Facility: [facility] Address: [address] [place] [address] Performed By: #### 2 157-6, 51313-7, 58731-7 ####[facility] LABCLIA [id number] [place] [id number] [place] AST [Catalytic activity/Vol] 12 U/L Low 13-35 [facility] Comment on above: Order Comment: Speci men Type: BLOOD SPECIMENOrdering Facility: [facility] Address: [address] [place] [address] Performed By: #### 2 157-6, 91070-8, 25290-4 ####[facility] LABCLIA [id number] [place] [id number] [place] Bilirubin [Mass/Vol] 0.3 mg/dL Normal 0.2-1.3 [facility] Comment on above: Order Comment: Speci men Type: BLOOD SPECIMENOrdering Facility: [facility] Address: [address] [place] [address] Performed By: #### 2 157-6, 73906-6, 51663-8 ####[facility] LABCLIA [id number] [place] [id number] [place] Calcium [Mass/Vol] 9.3 mg/dL Normal 8.5-10.2 [facility] Comment on above: Order Comment: Speci men Type: BLOOD SPECIMENOrdering Facility: [facility] Address: [address] [place] [address] Performed By: #### 2 157-6, 17311-6, 68471-7 ####[facility] LABCLIA [id number] [address] [address] [place] Chloride [Moles/Vol] 95 mmol/L Low 98-107 [facility] Comment on above: Order Comment: Speci men Type: BLOOD SPECIMENOrdering Facility: [facility] Address: [address] [place] [address] Performed By: #### 2 157-6, 65642-4, ####[facility] LABCLIA [id number] [place] [id number] [place] CO2 [Moles/Vol] 25 mmol/L Normal 22-30 [facility] Comment on above: Order Comment: Speci men Type: BLOOD SPECIMENOrdering Facility: [facility] Address: [address] [place] [address] Performed By: #### 2 157-6, 38819-0, ####[facility] LABIA [id number] [place] [address] [place] Creatinine [Mass/Vol] 0.64 mg/dL Normal 0.58-0.96 [facility] Comment on above: Order Comment: Speci men Type: BLOOD SPECIMENOrdering Facility: [facility] Address: [address] [place] [address] Performed By: #### 2 157-6, 10501-4, ####[facility] LABIA [id number] [place] [address] [place] Creatinine and Glomerular filtration rate.predicted panel (S/P/Bld) 85 mL/min/1.73m??? Normal >=60 [facility] Comment on above: Order Comment: Speci men Type: BLOOD SPECIMENOrdering Facility: [facility] Address: [address] [place] [address] Result Comment: Kayla mated Glomerular Filtration Rate (eGFR) is calculated using the 2020 CKD-EPI creatinine equation. This equation utilizes serum creatinine, sex, and age as parameters. The creatinine assay has traceable calibration to isotope dilution-mass spectrometry. Refer to KDIGO guidelines for clinical interpretation. In patients with unstable renal function, e.g. those with acute kidney injury, the eGFR may not accurately reflect actual GFR. Performed By: #### 2 157-6, 49609-4, ####[facility] LABCLIA [id number] [address] [address] [place] Glucose [Mass/Vol] 132 mg/dL High 74-99 [facility] Comment on above: Order Comment: Speci men Type: BLOOD SPECIMENOrdering Facility: [facility] Address: [address] [place] [id number] Result Comment: The [place] Diabetes Association (ADA) provides guidance for cutoff values for fasting glucose and random glucose. The ADA defines fasting as no caloric intake for at least 8 hours. Fasting plasma glucose results between 100 to 125 mg/dL indicate increased risk for diabetes (prediabetes). Fasting plasma glucose results greater than or equal to 126 mg/dL meet the criteria for diagnosis of diabetes. In the absence of unequivocal hyperglycemia, results should be confirmed by repeat testing. In a patient with classic symptoms of hyperglycemia or hyperglycemic crisis, random plasma glucose results greater than or equal to 200 mg/dL meet the criteria for diagnosis of diabetes. Reference: Standards of Medical Care in Diabetes 2016, [place] [employer] Association. Diabetes Care. 2016.39(Suppl 1). Performed By: #### 2 157-6, , ####[facility] LABCLIA [id number] [address] [address] [place] Potassium [Moles/Vol] 3.6 mmol/L Low 3.7-5.1 [facility] Comment on above: Order Comment: Speci men Type: BLOOD SPECIMENOrdering Facility: [facility] Address: [address] [place] [address] Performed By: #### 2 157-6, 94184-9, ####[facility] LABIA [id number] [facility] [address] [address] [place] Protein [Mass/Vol] 6.6 g/dL Normal 6.3-8.0 [facility] Comment on above: Order Comment: Speci men Type: BLOOD SPECIMENOrdering Facility: [facility] Address: [address] [place], [place] [address] Performed By: #### 2 157-6, 44853-6, ####[facility] LABCLIA [id number] [address] [address] [place] Sodium [Moles/Vol] 131 mmol/L Low 136-144 [facility] Comment on above: Order Comment: Speci men Type: BLOOD SPECIMENOrdering Facility: [facility] Address: [address] [place], [place] [address] Performed By: #### 2 157-6, 95927-1, ####[facility] LABCLIA [id number] [address] [address] [place] Urea nitrogen [Mass/Vol] 13 mg/dL Normal 7-21 [facility] Comment on above: Order Comment: Speci men Type: BLOOD SPECIMENOrdering Facility: [facility] Address: [address] [place], [place] [address] Performed By: #### 2 157-6, 36898-0, ####[facility] LABCLIA [id number] [address] [address] [place] MAGNESIUMon 01-17-2025 Magnesium [Mass/Vol] 2.1 mg/dL 1.7 - 2 .3 mg/dL [facility] Magnesium SerPl-mCncon 01-17 Magnesium [Mass/Vol] 2.1 mg/dL Normal 1.7-2.3 [facility] Comment on above: Order Comment: Speci men Type: BLOOD SPECIMENOrdering Facility: [facility] Address: [address] [place], [place] [address] Performed By: #### 2 157-6, 44355-3, 10764-9 ####[facility] LABCLIA [id number] [address] [address] [place] No Panel Informationon 01-17 Interpretation and review of laboratory results Normal [facility] CNOVon 12-30-2024 CNOV Office Visit (PULMWS ) MARSHALL WU ([id number]) 1935 F Date Time Provider Department 12/30/24 11:45 AM ANGELIKA CHAVEZ PULMWS During your visit today, we recorded the following information about you: Pulse Respiration Blood pressure Weight 86/minute 17/minute 130/62 68.9 kg Angelika Chavez MD 12/30/2024 12:26 PM Signed . Respiratory [place] Note Patient name: Marshall Wu PCP: Nadia Brambila APRN.STUDY LEAD CC: Follow-up COPD HPI: Marshall Wu 89 year old female former 40 pack year smoker, quitting in 1986 with PMH significant for mild COPD, mild pulmonary hypertension, HTN, GERD, HLD, melanoma, breast cancer. Current therapy consists of Symbicort and as needed albuterol. Overall she states she has been doing fairly well. She has noted less endurance and more dyspnea with exertion. She has been participating in physical therapy for balance issues related to neuropathy. No recent upper respiratory infection nor hospitalization. No need for her albuterol. She denies any wheezing, chest pain or cough with mucus production. DATA: PFT 06/2024: Pulmonary function test show obstruction. FEV1 just below cutoff of 70% to classify as mild obstruction COPD Assessment Test I never cough 0 1 2 3 4 5 I cough all the time; Score 1 I have no phlegm 0 1 2 3 4 5 My chest is completely full of phlegm; Score 1 My chest does not feel tight at all 0 1 2 3 4 5 My chest chest feels very tight; Score 1 When I walk up a hill or one flight of stairs I am not breathless 0 1 2 3 4 5 When I walk up a hill or one flight or stairs I am very breathless; Score 3 I am not limited doing any activities at home 0 1 2 3 4 5 I am very limited doing activities at home; Score 4 I am confident leaving my home despite my lung condition 0 1 2 3 4 5 I am not at all confident leaving my home because of my lung condition; Score 4 I sleep soundly 0 1 2 3 4 5 don't sleep soundly because of my lungs; Score 3 I have lots of energy 0 1 2 3 4 5 I have no energy at all; Score 3 Total Score: 20 PAST MEDICAL HISTORY Diagnosis Date Aortic sclerosis 2012 Found on echo Arthritis of foot Bilateral heel spurs. 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 rOPINIRole (REQUIP) 0.5 mg tablet Take 1 tablet by mouth at bedtime as needed (RLS). budesonide-formoterol (SYMBICORT) 160-4.5 mcg/actuation inhaler Inhale 2 Puffs as instructed two times a day. rOPINIRole (REQUIP) 1 mg tablet Take 1 tablet by mouth daily at bedtime. lisinopril (ZESTRIL) 30 mg tablet Take 1 tablet by mouth once daily. atorvastatin (LIPITOR) 20 mg tablet TAKE 1 TABLET DAILY AT BEDTIME FOR CHOLESTEROL MAGNESIUM ORAL Take by mouth. hydroCHLOROthiazide 12.5 mg capsule Take 1 capsule by mouth once daily. ESOMEPRAZOLE MAGNESIUM (NEXIUM 24HR ORAL) Take by mouth. Social History Tobacco Use Smoking status: Former Current packs/day: 0.00 Average packs/day: 1.3 packs/day for 32.0 years (41.7 ttl pk-yrs) Types: Cigarettes Start date: 03/10/1955 Quit date: 07/14/1986 Years since quittin.4 Smokeless tobacco: Never Tobacco comments: Parents did not smoke in childhood home. Spouse non smoker. Vaping Use Vaping status: Never Used Substance Use Topics Alcohol use: Yes Comment: Occasional. Drug use: No FAMILY HISTORY Problem Relation Age of Onset Alzheimer's Disease Mother Arthritis Father Stroke Father Breast Cancer Maternal Aunt other (lung cancer) Maternal Aunt Prostate Cancer Son Stroke Other Fatal. Brother in law. PAST SURGICAL HISTORY Procedure Laterality Date ARTHROPLASTY GLENOHUMRL JT HEMIARTHROPLASTY Left 03/2022 Arthroplasty, shoulder BREAST LUMPECTOMY HX Right 09/13/2021 U/S guided open right breast lumpectomy COLONOSCOPY FLX DX W/COLLJ SPEC WHEN PFRMD 03/26/2007 Colonoscopy DILATION AND CURETTAGE DXAND/THER NONOBSTETRIC Dilation AND curettage LAPAROSCOPY SURG CHOLECYSTECTOMY 1979 Cholecystectomy, lap SKIN BIOPSY HX PMH, Social history, family history and surgical history reviewed and updated in EMR REVIEW OF SYSTEMS: CONSTITUTIONAL: No fevers, chills, nightsweats, unintended weight loss HEENT: Denies nasal congestion/sinus symptoms CARDIOVASCULAR: No chest pain, palpitations, orthopnea, PND, edema. PULM: See HPI NEURO: Balance problems, neuropathy. No falls. INTEGUMENTARY: No new skin (more content not included)... Normal [facility] Inital Evaluation (1) - PTon 12-15-2024 Inital Evaluation (1) - PT [facility] [address] [place] [address]. [address] [place] [address] / REHABILITATION SERVICES INITIAL EVALUATION MR#: [id number] Acct: [id number] Name: MARSHALL WU Rep #: [id number] : 1935 89 From: Angel Salas PT, ATC Referring Dr.: Dr. Larry Burdick MD Status: REG RC R Insurance: MEDICARE PART A B [employer] Patient's Visit Information Visit Information Visit Information: MARSHALL WU is a 89 year old F referred to Physical Therapy by Dr. Larry Burdick MD with a diagnosis of LBP. Date of Evaluation: 12/15/24 Physical Therapist: Angel Salas, PT, ATC Visit Plan Frequency: 2x /Week Duration: 2-4 Weeks Plan: SKTC/DKTC, core strengthening, B LE strengthening, gait training, and HEP Subjective Subjective: Pt reports her low back has been sore for about 3 weeks. Pt notes her pain was terrible at first, but then she switched beds and now her pain is a little less. Pt denies any tingling or numbness at this time. Pt reports her pain is always worse when waking up in the morning. Pt reports prolonged walking always increases her pain. Pt also notes sitting helps her back to feel better, but her pain gets worse when she sits for too long. Pt notes she is an avid golfer, and is only able to golf 9 holes at this time secondary to pain. Pt reports she is able to perform most of her ADL's, but has difficulty secondary to LBP and old age. Pt reports her LBP is 1/10 while sitting here in the clinic, but elevates to 9/10 at worst. Pain LBP: Pain Intensity (Out of 10): 1 Pain Intensity Range: 9 Objective Objective: Neuro: B LE sensation is WNL to light touch. MMT: B LE's are grossly 4/5 throughout ROM: Pt is severely limited with L/S extension. Pt is moderately limited with B sidebend. Repeated movements: SKTC/DKTC decreases LBP Gait: Pt is able to ambulate 510 feet until needing to rest secondary to pain Balance/Special Test Scores Oswestry Low Back Score: 25 Goals Goal 1:: Decrease LBP x 50% to aid with sleep Goal Time Frame: 2-4 Weeks Goal 2:: Pt will be able to ambulate 1000 feet until needing to rest to aid with community mobility Goal Time Frame: 2-4 Weeks Goal 3:: I with HEP Goal Time Frame: 2-4 Weeks Rehabilitation Potential Physical Therapy Diagnosis: Pt has LBP, Difficulty with sleep, and limitations with ADL's secondary to degenerative changes in the lumbar spine Rehabilitation Potential: Good Anticipated Interventions Patient/Client Instruction: Educate patient on: Condition and Plan of Care For the Purpose of:: To improve self management Therapeutic Exercise to Include: Strength training, Endurance training, Postural training, Active ROM and Dynamic Lumbar Stabilization For the Purpose of:: To decrease pain, To increase ROM and To improve muscle performance and motor function Text: Thank you for the opportunity to evaluate your patient. For Medicare and Medicare HMO plans, please review the plan of care and approve it. It will need to be FAXED BACK to us at [phone] for Medicare purposes. For Medicare only, by signing this I certify the plan of care. Please let me know if there are questions or concerns regarding this plan of care. Physician Signature: Date: 12/15/24 1425 CC: Dr. Larry Burdick MD; Dr. Bang Holland MD [facility]igned [facility] Office Visit (PNMDNA ) AVIVAMARSHALL MANLEY ([id number]) 1935 F Date Time Provider Department 11/24/24 10:00 AM LARRY BURDICK PNMDNA During your visit today, we recorded the following information about you: Pulse Weight 82/minute 70.9 kg Larry Burdick MD 11/24/2024 10:40 AM Signed [facility] (ESTABLISHED PATIENT) Date: November 24, 2024 - 10:07 AM Chief Complaint: low back pain _ SUBJECTIVE: Marshall is an 89-year-old female presenting for follow-up of worsening lower back pain and neuropathy. Marshall reports a progressive worsening of lower back pain over the past few years. The pain is bilateral and does not radiate to the legs or upper back. She notes that the pain worsens with prolonged standing and overexertion. She has been taking methocarbamol, prescribed by her primary care physician about a month ago, but has not noticed significant improvement. She takes the medication before playing golf and does not report feeling tired from it. She also reports worsening neuropathy over the past three years, which has significantly impacted her mobility and ability to walk upright. She used to walk frequently but now finds it difficult to stand up straight and look ahead while walking. The combination of back pain and neuropathy has limited her physical activities, including playing golf, which she can only do for nine holes at a time. Despite her symptoms, she remains active and is determined to continue playing golf on her 89th birthday. She has a history of shoulder replacement surgery and has previously participated in physical therapy for balance and strength training. The pain is described as aching and is rated as 2 on a scale of 0-10. The patient Reports morning stiffness. Symptoms interfere with physical activity and walking. The pain is exacerbated by standing and walking. The pain is mitigated by sitting and heat. She is not currently receiving medications through the [facility]. She is not having difficulty with her PMC medications. The medications are effective and partially effective. REVIEW OF SYSTEMS: Constitutional: (-) Fever (-) Night Sweats (-) Weight Gain (-) Weight Loss (-) Fatigue Cardiovascular: (-) Chest Pain (-) Palpitations (-) Lightheadedness (+) Swelling of Ankles (-) Hx Heart Surgery Respiratory: (+) Shortness of Breath (-) Cough (-) Wheezing (-) Snoring Gastrointestinal: (+) Incontinence (-) Abdominal Pain (-) Diarrhea (+) Constipation (-) Nausea/Vomiting (+) Heart Burn Endocrine: (-) Thyroid Disorder (-) Diabetes Hematologic: (-) Prolonged Bleeding (-) Easy Bruising Genitourinary: (-) Incontinence (-) Frequency (-) Urinary Urgency Skin: (-) Rashes (-) Itching (-) Other Lesions Neurologic: (-) Headache (-) Double Vision (-) Confusion (-) Paralysis Psychiatric: (-) Depression (-) Anxiety (-) Delusions (-) Hallucinations (-) Personal History of Alcohol or Substance Abuse (-) Family History of Alcohol or Substance Abuse _ PAST MEDICAL HISTORY Diagnosis Date Aortic sclerosis 2012 Found on echo Arthritis of foot Bilateral heel spurs. 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 PAST SURGICAL HISTORY Procedure Laterality Date ARTHROPLASTY GLENOHUMRL JT HEMIARTHROPLASTY Left 03/2022 Arthroplasty, shoulder BREAST LUMPECTOMY HX Right 09/13/2021 U/S guided open right breast lumpectomy COLONOSCOPY FLX DX W/COLLJ SPEC WHEN PFRMD 03/26/2007 Colonoscopy DILATION AND CURETTAGE DXAND/THER NONOBSTETRIC Dilation AND curettage LAPAROSCOPY SURG CHOLECYSTECTOMY 1979 Cholecystectomy, lap SKIN BIOPSY HX ALLERGIES Allergen Reactions Ciprofloxacin Other: See Comments Ankle and achilles pain Seasonal Allergies Intolerance Current Outpatient Medications Medication Sig rOPINIRole (REQUIP) 0.5 mg tablet Take 1 tablet by mouth at bedtime as needed (RLS). guaiFENesin (MUCINEX) 600 mg 12 hr tablet Take 1 tablet by mouth two times a day as needed for cold/allergy symptoms. methocarbamol (ROBAXIN) 500 mg tablet Take 1 tablet by mouth three times a day as needed. ferrous sulfate (IRON ORAL) Take by mouth once daily. budesonide-formoterol (SYMBICORT) 160-4.5 mcg/actuation inhaler Inhale 2 Puffs as instructed two times a day. rOPINIRole (REQUIP) 1 mg tablet Take 1 tablet by mouth daily at bedtime. lisinopril (ZESTRIL) 30 mg tablet Take 1 tablet by mouth once (more content not included)... Normal [facility] CNOVon 09-21-2024 CNOV Office Visit (FAMPWS ) MARSHALL WU ([id number]) 1935 F Date Time Provider Department 09/21/24 2:00 PM NADIA BRAMBILA During your visit today, we recorded the following information about you: Temperature Pulse Blood pressure Weight 97.7 degrees 62/minute 130/72 69.4 kg Nadia Brambila APRN.CNP 09/21/2024 2:33 PM Signed This is a 89 year old female who presents today with: No chief complaint on file. HISTORY OF PRESENT ILLNESS: Marshall Wu is a 89 year old female. No chief complaint on file. Bad cough started 1 week ago. Runny nose and congestion Non-productive cough No H/A + Fatigue No sore throat No body aches No fever or chills Taking Mucinex Right flank pain since fall in Mar. Went to therapy and one particular exercise makes it worse No gym in a couple weeks Wants to stop atorvastatin due to cost and her age PAST MEDICAL HISTORY: PAST MEDICAL HISTORY Diagnosis Date Aortic sclerosis 2012 Found on echo Arthritis of foot Bilateral heel spurs. 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 budesonide-formoterol (SYMBICORT) 160-4.5 mcg/actuation inhaler Inhale 2 Puffs as instructed two times a day. rOPINIRole (REQUIP) 1 mg tablet Take 1 tablet by mouth daily at bedtime. lisinopril (ZESTRIL) 30 mg tablet Take 1 tablet by mouth once daily. atorvastatin (LIPITOR) 20 mg tablet TAKE 1 TABLET DAILY AT BEDTIME FOR CHOLESTEROL MAGNESIUM ORAL Take by mouth. hydroCHLOROthiazide 12.5 mg capsule Take 1 capsule by mouth once daily. solifenacin 10 mg tablet Take 0.5 tablets by mouth once daily. melatonin 10 mg cap Take 10 mg by mouth. ESOMEPRAZOLE MAGNESIUM (NEXIUM 24HR ORAL) Take by mouth. No current facility-administered medications for this visit. FAMILY HISTORY Problem Relation Age of Onset Alzheimer's Disease Mother Arthritis Father Stroke Father Breast Cancer Maternal Aunt other (lung cancer) Maternal Aunt Prostate Cancer Son Stroke Other Fatal. Brother in law. Social History Tobacco Use Smoking status: Former Current packs/day: 0.00 Average packs/day: 1.3 packs/day for 32.0 years (41.7 ttl pk-yrs) Types: Cigarettes Start date: 03/10/1955 Quit date: 07/14/1986 Years since quittin.2 Smokeless tobacco: Never Tobacco comments: Parents did not smoke in childhood home. Spouse non smoker. Vaping Use Vaping status: Never Used Substance Use Topics Alcohol use: Yes Comment: Occasional. Drug use: No EXAM: BP 130/72 Pulse 62 Temp 36.5 ?C (97.7 ?F) (Left Tympanic) Wt 69.4 kg (153 lb) SpO2 92% BMI 27.10 kg/m? PHYSICAL EXAM: Physical Exam Vitals reviewed. Constitutional: Appearance: Normal appearance. HENT: Head: Normocephalic. Right Ear: External ear normal. There is no impacted cerumen. Left Ear: External ear normal. There is no impacted cerumen. Ears: Comments: Both canals red, left is a little swollen Nose: Congestion and rhinorrhea present. Mouth/Throat: Pharynx: Oropharyngeal exudate and posterior oropharyngeal erythema present. Cardiovascular: Rate and Rhythm: Normal rate and regular rhythm. Pulses: Normal pulses. Heart sounds: Normal heart sounds. Pulmonary: Effort: Pulmonary effort is normal. Breath sounds: Normal breath sounds. Comments: Cleared with cough Negative egophony Musculoskeletal: General: Normal range of motion. Comments: Walks w/o assistive device, moves all ext. Negative CVA tenderness Skin: General: Skin is warm and dry. Neurological: Mental Status: She is alert and oriented to person, place, and time. LABS: ASSESSMENT/PLAN: 1. Acute non-recurrent sinusitis, unspecified location - ICD9: 461.9, ICD10: J01.90 (primary diagnosis) - Will begin treatment with Doxycycline - DOXYCYCLINE HYCLATE 100 MG TABLET 2. Cough, unspecified type - ICD9: 786.2, ICD10: R05.9 Ongoing - GUAIFENESIN ER 600 MG TABLET, EXTENDED RELEASE 12 HR 3. Upper back pain - ICD9: 724.5, ICD10: M54.9 (more content not included)... Normal [facility] CNOVon 07-26-2024 CNOV Office Visit (FAMPWS ) MARSHALL WU ([id number]) 1935 F Date Time Provider Department 07/26/24 11:20 AM [facility] During your visit today, we recorded the following information about you: Temperature Pulse Respiration Blood pressure 97.6 degrees 76/minute 16/minute 140/70 Weight 69.9 kg Nadia Brambila, MOCK UP MAKER.STUDY LEAD 07/26/2024 11:55 AM Signed This is a 89 year old female who presents today with: Patient presents with: Establish Care Suture Removal: Right upper arm HISTORY OF PRESENT ILLNESS: Marshall Wu is a 89 year old female. Patient presents with: Establish Care Suture Removal: Right upper arm Pt. Had nevi for years. They removed a pre-melanoma removed and sutures need to come out No other health complaints or concerns Complete physical therapy for balance- thinks it was helpful PAST MEDICAL HISTORY: PAST MEDICAL HISTORY Diagnosis Date Aortic sclerosis 2012 Found on echo Arthritis of foot Bilateral heel spurs. 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 rOPINIRole (REQUIP) 1 mg tablet Take 1 tablet by mouth daily at bedtime. lisinopril (ZESTRIL) 30 mg tablet Take 1 tablet by mouth once daily. atorvastatin (LIPITOR) 20 mg tablet TAKE 1 TABLET DAILY AT BEDTIME FOR CHOLESTEROL MAGNESIUM ORAL Take by mouth. lisinopril (ZESTRIL) 30 mg tablet Take 1 tablet by mouth once daily. budesonide-formoterol (SYMBICORT) 160-4.5 mcg/actuation inhaler Inhale 2 Puffs as instructed two times a day. hydroCHLOROthiazide 12.5 mg capsule Take 1 capsule by mouth once daily. solifenacin 10 mg tablet Take 0.5 tablets by mouth once daily. melatonin 10 mg cap Take 10 mg by mouth. ESOMEPRAZOLE MAGNESIUM (NEXIUM 24HR ORAL) Take by mouth. No current facility-administered medications for this visit. FAMILY HISTORY Problem Relation Age of Onset Alzheimer's Disease Mother Arthritis Father Stroke Father Breast Cancer Maternal Aunt other (lung cancer) Maternal Aunt Prostate Cancer Son Stroke Other Fatal. Brother in law. Social History Tobacco Use Smoking status: Former Current packs/day: 0.00 Average packs/day: 1.3 packs/day for 32.0 years (41.7 ttl pk-yrs) Types: Cigarettes Start date: 03/10/1955 Quit date: 07/14/1986 Years since quittin.0 Smokeless tobacco: Never Tobacco comments: Parents did not smoke in childhood home. Spouse non smoker. Vaping Use Vaping status: Never Used Substance Use Topics Alcohol use: Yes Comment: Occasional. Drug use: No REVIEW OF SYSTEMS GENERAL: No weight loss, malaise or fevers/chills HEENT: Negative for frequent or significant headaches, No changes in hearing or vision (wears hearing aids). NECK: Negative for lumps, goiter, pain and significant neck swelling RESPIRATORY: Negative for cough, hemoptysis, wheezing, no change in dyspnea or shortness of breath CARDIOVASCULAR: Negative for chest pain, leg swelling, orthopnea, or palpitations GI: No nausea, vomiting, or diarrhea/constipation. No hematochezia/melena. + heartburn or reflux symptoms and Nexium works : No history of dysuria, frequency or incontinence MUSCULOSKELETAL: Negative for joint pain or swelling. SKIN: Negative for lesions, rash, and itching- surtures in right upper arm without redness or drainage- no swelling ENDOCRINE: Negative for cold or heat intolerance, polyuria, polydipsia and goiter NEURO: No history of headaches, syncope, paralysis, seizures or tremors MOOD: Negative for depression, anxiety, or suicidal ideation. EXAM: BP 140/76 Pulse 76 Temp 36.4 ?C (97.6 ?F) Resp 16 Wt 69.9 kg (154 lb) SpO2 97% BMI 27.28 kg/m? PHYSICAL EXAM: Physical Exam Vitals reviewed. Constitutional: Appearance: Normal appearance. HENT: Head: Normocephalic. Cardiovascular: Rate and Rhythm: Normal rate and regular rhythm. Pulses: Normal pulses. Heart sounds: Normal heart sounds. Pulmonary: Effort: Pulmonary effort is normal. Breath sounds (more content not included)... Normal [facility] CNOVon 07-16-2024 CNOV Office Visit (LAMBERT ) MARSHALL WU ([id number]) 1935 F Date Time Provider Department 07/16/24 10:20 AM BANG PLUMMER JR During your visit today, we recorded the following information about you: Pulse Blood pressure Weight 102/minute 134/77 68.9 kg Marly Chavez LPN 07/16/2024 11:02 AM Signed RLS is doing better with magnesium, neuropathy not getting any better, patient taking PT, PT did help. Stopped gabapetin, still taking requip. Marly Chavez LPN July 16, 2024 10:17 AM Bang Plummer Jr., MD 07/16/2024 11:02 AM Signed ESTABLISHED PATIENT VISIT CHIEF COMPLAINT: Follow Up HISTORY OF PRESENT ILLNESS: Marshall Wu is a 89 year old female, BMI 26.93 kg/m2 with a PMH significant for and per last office visit of 12/2023: 1. Neuropathy - ICD9: 355.9, ICD10: G62.9 (primary diagnosis) Patient with balance issues that are no obvious on exam. No falls. Prior L spine workup not concerning, and while degenerative disc disease noted on XR, no weakness on exam or pain/discomfort typical of spine etiology. Besides stocking glove sensory deficits, non focal neuro exam. Patient very active. 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 Extensive lab workup already performed by PCP, but will add WSR and [place] with reflex to complete neuropathy labs. No known exposures to heavy metals or other toxins that might induce neuropathy. No history of chemotherapy. No family history of neuropathy. Mild elevated glucose which might be contributing to disorder. Encouraged exercise. Pt does not feel she needs PT. 2. Restless leg - ICD9: 333.94, ICD10: G25.81 As above, noted urge to move, worse towards the night time and improved with actual movement. No prior Fe or Ferritin levels, and will add to next set of patient's labs - distant history of Fe deficiency. For discomfort or urge to move, will start patient on gabapentin 100mg at lunch and 100mg at dinner to see if improves discomfort and urge to move prior to bedtime. Will continue Requip for now. Will likely need titration of gabapentin dosing and if successful in controlling symptoms, then will try to transition from Requip to gabapentin. Likewise, gabapentin may help with nay discomfort associated with neuropathy. SE and ADRs d/w pt. Patient only took gabapentin for 1 week. Never titrated above 100mg twice daily. States RLS well controlled on Ropinirole 1mg at bedtime (maybe symptoms one night every few weeks). She feels neuropathy has progressed, and moved up to ankles and feet ice cold. [place] PT improved balance. 2 falls in 03/2024 - first fall associated with the left foot feeling stuck to the ground. The other she fell after stepping on her shoe lace -- both appears to be mechanical. Neuropathy symptoms present all day - so long as has shoes on ok. Currently taking Fe twice daily. No side effects. She would like to reduce to once daily. REVIEW OF SYSTEMS GENERAL:No weight loss, malaise or fevers. HEENT:Negative for frequent or significant headaches, No changes in hearing or vision, no nose bleeds or other nasal problems NECK:Negative for lumps, goiter, pain and significant neck swelling RESPIRATORY: Negative for cough, wheezing or shortness of breath. CARDIOVASCULAR: Negative for chest pain, leg swelling or palpitations. GASTROINTESTINAL: Negative for abdominal discomfort, blood in stools or black stools or change in bowel habits GENITOURINARY: No history of dysuria, frequency or incontinence MUSCULOSKELETAL: Negative for joint pain or swelling, back pain or muscle pain. NEUROLOGIC:See HPI. SKIN:Negative for lesions, rash, and itching. LAB/IMAGING: Those performed since patient's last visit have been reviewed. WBC (k/uL) Date Value 09/27/2023 5.97 RBC (m/uL) Date Value 09/27/2023 4.58 Hemoglobin (g/dL) Date Value 09/27/2023 13.7 Hematocrit (%) Date Value 09/27/2023 42.4 MCV (fL) Date Value 09/27/2023 92.6 MCH (pg) Date Value 09/27/2023 29.9 MCHC (g/dL) Date Value 09/27/2023 32.3 RDW-CV (%) Date Value 09/27/2023 13.5 Platelet Count (k/uL) Date Value 09/27/2023 243 MPV (fL) Date Value 09/27/2023 11.0 Glucose (mg/dL) Date Value 01/10/2024 82 BUN (mg/dL) Date Value 01/10/2024 11 Creatinine (mg/dL) Date Value 01/10/2024 0.62 Sodium (mmol/L) Date Value 01/10/2024 136 Potassium (mmol/L) Date Value 01/10/2024 4.1 Chloride (mmol/L) Date Value 01/10/2024 99 CO2 (mmol/L) Date Value 01/10/2024 27 Protein, Total (g/dL) Date Value 09/27/2023 6.7 09/27/2023 6.7 Albumin (g/dL) Date Value 09/27/2023 4.1 Calcium, Total (mg/dL) Date Value 01/10/2024 9.2 Alkaline Phosphatase (U/L) Date Value 09/11 (more content not included)... [facility] PT D/C Summary (1)on 024 PT D/C Summary (1) [facility] [address] [place] [address] / REHABILITATION SERVICES DISCHARGE SUMMARY MR#: [id number] Acct: [id number] Name: MARSHALL WU Rep #: [id number] : 1935 89 From: Angel Salas PT, ATC Referring Dr.: YULI Brambila Status: R EG RCR Insurance: MEDICARE PART A B [employer] Discharge Summary D/C summary: It has been my pleasure to treat MARSHALL WU referred by YULI Barboza, with the diagnosis of gait instability for a total of 19 visit(s). Discharge Date: Please see the following information for a summary of their discharge status. Subjective Subjective: I am ready to be done Overall Improvement % Improvement: 70 Objective Objective/Function: TUG 8 sec FGA= 25/30 MMT: B LE's 5/5 throughout Pt is I with HEP Goals Goal 1:: Increase B LE strength x 1 grade to aid with stair negotiation Goal Progress: Goal Met Goal 2:: Increase FGA x 5 points (18/30) to aid with preventing future falls Goal Progress: Goal Met Goal 3:: Pt will perform the TUG test in under 10 seconds to aid with community ambulation Goal Progress: Goal Met Goal 4:: I with HEP Goal Progress: Goal Met Plan Plan: Discharge to HEP D/C Information d/c sentence: If there are questions or concerns regarding this patient's physical therapy, please feel free to call me at [phone]. Thank you for the referral of this patient. Sincerely, Angel Salas, PT, ATC Balance/Gait/Functional tests Balance/Special Test Scores Functional Gait Assessment Score: 25 % Disability: 16.6700 Lower Extremity Functional Score: 40 Improvement % Improvement: 70 07/09/24 1315 CC: YULI Brambila; Dr. Bang Holland MD [facility] Signed Normal [facility] CNOVon 06-23-2024 CNOV Office Visit (PULMWS ) BRYCEMARSHALL A ([id number]) 1935 F Date Time Provider Department 06/23/24 11:00 AM KAMILLE RIZO PULMWS During your visit today, we recorded the following information about you: Pulse Respiration Blood pressure Weight 85/minute 16/minute 140/76 68.9 kg Height 1.6 m Kamille Rizo PA-C 06/23/2024 12:23 PM Signed Patient: Marshall Wu PCP: Pamela Montgomery PA-C CC: follow up HPI: Marshall Chapa Bryce 89 year old female former [id number] smoker having quit in 1986 with PMH significant for mild COPD, aortic stenosis, HTN, GERD, HLD, melanoma, and breast cancer. Current maintenance therapy Symbicort and as needed Albuterol. Today, patient reports minimal cough, sputum production, hemoptysis, or wheezing. Exertional dyspnea has not changed. She is most limited by her neuropathy. No fevers, chills, or night sweats. No unintended weight loss. She does report fatigue. No lower extremity edema. No GERD/heartburn. No recent hospitalizations or ED visits or upper respiratory infections. PAST MEDICAL HISTORY Diagnosis Date Aortic sclerosis 2012 Found on echo Arthritis of foot Bilateral heel spurs. 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 lisinopril (ZESTRIL) 30 mg tablet Take 1 tablet by mouth once daily. atorvastatin (LIPITOR) 20 mg tablet TAKE 1 TABLET DAILY AT BEDTIME FOR CHOLESTEROL MAGNESIUM ORAL Take by mouth. rOPINIRole (REQUIP) 1 mg tablet Take 1 tablet by mouth daily at bedtime. lisinopril (ZESTRIL) 30 mg tablet Take 1 tablet by mouth once daily. hydroCHLOROthiazide 12.5 mg capsule Take 1 capsule by mouth once daily. solifenacin 10 mg tablet Take 0.5 tablets by mouth once daily. melatonin 10 mg cap Take 10 mg by mouth. ESOMEPRAZOLE MAGNESIUM (NEXIUM 24HR ORAL) Take by mouth. Social History Tobacco Use Smoking status: Former Current packs/day: 0.00 Average packs/day: 1.3 packs/day for 32.0 years (41.7 ttl pk-yrs) Types: Cigarettes Start date: 03/10/1955 Quit date: 07/14/1986 Years since quittin.9 Smokeless tobacco: Never Tobacco comments: Parents did not smoke in childhood home. Spouse non smoker. Vaping Use Vaping status: Never Used Substance Use Topics Alcohol use: Yes Comment: Occasional. Drug use: No Family History Problem Relation Age of Onset Alzheimer's Disease Mother Arthritis Father Stroke Father Breast Cancer Maternal Aunt other (lung cancer) Maternal Aunt Prostate Cancer Son Stroke Other Fatal. Brother in law. PAST SURGICAL HISTORY Procedure Laterality Date ARTHROPLASTY GLENOHUMRL JT HEMIARTHROPLASTY Left 03/2022 Arthroplasty, shoulder BREAST LUMPECTOMY HX Right 09/13/2021 U/S guided open right breast lumpectomy COLONOSCOPY FLX DX W/COLLJ SPEC WHEN PFRMD 03/26/2007 Colonoscopy DILATION AND CURETTAGE DXAND/THER NONOBSTETRIC Dilation AND curettage LAPAROSCOPY SURG CHOLECYSTECTOMY 1979 Cholecystectomy, lap SKIN BIOPSY HX I reviewed the past medical history, family history, social history and surgical history with changes noted above and updated in EMR. IMMUNIZATIONS Immunization History Administered Date(s) Administered COVID-19 original vaccine, full dose, monovalent (MODERNA) 08/03/2020 08/31/2020 05/17/2021 11/01/2021 influenza (HD-IIV3) vaccine, age 65+ yr, high dose, trivalent, PF (FLUZONE HIGH-DOSE) 05/19/2015 06/03/2016 04/08/2017 04/17/2018 05/14/2019 04/14/2023 influenza (HD-IIV4) vaccine, age 65+ yr, high dose, quadrivalent, PF (FLUZONE HIGH-DOSE) 05/06/2020 05/05/2021 05/14/2022 influenza (IIV3) vaccine, age 6 mo - 64 yr, trivalent (AFLURIA, FLULAVAL, FLUVIRIN, FLUZONE) 04/18/2014 influenza vaccine, unspecified formulation 04/21/2013 pneumococcal conjugate (PCV13) vaccine, 13 valent (PREVNAR 13) 05/19/2015 pneumococcal polysaccharide (PPV23) vaccine, 23 valent (PNEUMOVAX 23) 05/17/2008 respiratory syncytial virus (RSV) vaccine, adjuvanted (AREXVY) 05/20/2024 tetanus diphtheria (Td) vaccine, age 7+ yr, 5 Lf tetanus, PF (TENIVAC) 02/04/2016 04/28/2024 tetanus diphtheria pertussis (Tdap) vaccine, age 7+ yr (ADACEL, BOOSTRIX) 02/04/2016 ROS: All other systems reviewed as negative except for what is noted in HPI and review of systems. PHYSICAL EXAMINATION: BP 140/76 Pulse 85 Resp 16 Ht 160 cm (5' 3) Wt 68.9 kg (152 lb) (more content not included)... [facility] SPIROMETRY BASELINE ONLYon 1 08-24-2023 FEF25% PRE (L/S) 1.83 L/S [facility] ULA21-50% LLN (L/S) 0.51 L/S [facility] YZF70-73% PRE (L/S) 0.54 L/S [facility] LZC56-63% PREDICTED (L/S) 1.32 L/S [facility] FEF75% LLN (L/S) 0.08 L/S [facility] FEF75% PRE (L/S0 0.18 L/S [facility] FEF75% PREDICTED (L/S) 0.26 L/S [facility] FEF75% ULN (L/S) 0.88 L/S [facility] FET PRE (S) 7.91 S [facility] FEV1 LLN (L) 1.15 L [facility] FEV1 PRE (L) 1.20 L [facility] FEV1 PREDICTED (L) 1.74 L [facility] FEV1 ULN (L) 2.29 L [facility] FEV1/FVC LLN (%) 63 % [facility] FEV1/FVC PRE (%) 63 % [facility] FEV1/FVC PREDICTED (%) 77 % [facility] FVC LLN (L) 1.57 L [facility] FVC PRE (L) 1.91 L [facility] FVC PREDICTED (L) 2.32 L [facility] FVC ULN (L) 3.10 L [facility] PEF LLN (L/S) 2.12 L/S [facility] PEF PRE (L/S) 3.42 L/S [facility] PEF ULN (L/S) 5.44 L/S [facility] [address] [place] [address] Test Date: 2024-06-23 Pat Name: MARSHALL WU Department: Room: Gender: Female Medical File Clerk: : 1935 Requested By: Order Number: [id number] Reading MD: Angelika Chavez MD Interpretive Statements Medications and Allergies were reviewed for possible drug interactions per policy. No contraindications or sensitivities were noted. Meds taken: Symbicort 1.5 /hours before testing. Current ATS/ERS acceptability and repeatability standards for spirometry met. Start of test and EOFE criteria met. IMPRESSION: Spirometry indicates moderate obstruction. Electronically Signed On 06-23-2024 16:45:34 EST by Angelika Chavez MD ID: [id number] Name: MARSHALL WU Race: White Ht: 63.00 in Wt: 152.00 lbs Age: 89 Gender: Female : 1935 Dx: COPD_ Smoking Hx: Non-smoker Doctor: KAMILLE RIZO Test Date: 06/23/2024 Site: Tech: Farhat Cornelius PRE-BRONCH POST-BRONCH Pre LLN Pred ULN %Pred Post %Pred %Chg SPIROMETRY FVC (L) 1.91 1.57 2.32 3.10 82 FEV1 (L) 1.20 1.15 1.74 2.29 69 FEV1/FVC 0.63 0.63 0.77 0.89 81 PEF L/s (L/sec) 3.42 2.12 3.78 5.44 90 FEF50 (L/sec) 0.85 0.97 2.58 4.19 32 FIF50 (L/sec) 1.42 FEF50/FIF50 0.60 90-100 FIVC (L) 1.70 NVU71-72 (L/sec) 0.54 0.51 1.32 2.61 40 Time (sec) 7.91 FET PEF (sec) 0.08 BETH (L) 0.05 Vol Extrap % (%) 3 Comments: Medications and Allergies were reviewed for possible drug interactions per policy. No contraindications or sensitivities were noted. Meds taken: Symbicort 1.5 /hours before testing. Current ATS/ERS acceptability and repeatability standards for spirometry met. Start of test and EOFE criteria met. PULMONARY FUNCTION LAB [facility] Re-Evaluation - PT (1)on Re-Evaluation - PT (1) [facility] [address] [place] [address]. [address] [place] [address] / REEVALUATION / MEDICARE RECERTIFICATION PHYSICAL THERAPY MR#: [id number] Acct: [id number] Name: MARSHALL WU Rep #: [id number] : 1935 89 From: Angel Salas PT, ATC Referring DrStella: YULI Brambila Status:REG RCR Insurance: MEDICARE PART A B [employer] Re-Evaluation Intro: Nadia Brambila, YULI, It has been my pleasure to treat MARSHALL WU over the last 11 visits for gait instability. Please see the progress note below for an update on the physical therapy plan of care! Subjective Subjective: I am tired from yesterday Objective Objective/Function: TU sec FGA: - Normal balance at this time MMT: B LE's 4+/5 throughout Pt has really improved balance at this time but continues to lack functional strength. Plan Plan Plan: 06/11/24- Cont with B LE strengthening, balance and proprio, core strengthening, gait training, stair negotiation, nustep, and HEP Balance/Gait/Functional tests Balance/Special Test Scores Functional Gait Assessment Score: 21 % Disability: 30.0000 Lower Extremity Functional Score: 40 Goals Goals Goal 1:: Increase B LE strength x 1 grade to aid with stair negotiation Goal Time Frame: 4-6 Weeks Goal Progress: Progressing Goal 2:: Increase FGA x 5 points () to aid with preventing future falls Goal Time Frame: 4-6 Weeks Goal Progress: Goal Met Goal 3:: Pt will perform the TUG test in under 10 seconds to aid with community ambulation Goal Time Frame: 4-6 Weeks Goal Progress: Goal Met Goal 4:: I with HEP Goal Time Frame: 4-6 Weeks Goal Progress: Progressing Anticipated Interventions Anticipated Interventions Patient/Client Instruction: Educate patient on: Condition and Plan of Care For the Purpose of:: To improve self management Therapeutic Exercise to Include: Strength training, Endurance training, Balance training, Flexibilty training, Gait and locomotor training and Active ROM For the Purpose of:: To improve muscle performance and motor function, To increase tolerance to activity/condition/posi tion and To improve ability of physical actions for home/community/work/lei sure Re-Evaluation Ending Re-evaluation ending: Please do not hesitate to contact me at [phone] by phone or if you have questions or concerns regarding this new plan of care! Sincerely, Angel Salas, PT, ATC 06/11/24 1204 CC: YULI Brambila; Dr. Bang Holland MD [facility] Signed For Medicare only, by signing this I certify the plan of care. Physicians Signature Date [facility] 36on 05-20-2024 36 Called and spoke wit h pt-Per Dr. Santiago, advised her of all of the above. Pt states she would like to go back to Dr. Oneill, as she really liked her. Let pt know I would fax the referral over to their office, and they would contact her directly to schedule. Pt may also contact office directly at her convenience. Pt educated and verbalized understanding. Referral faxed. [facility] 36on 05-18-2024 36 Please see result no te sent to patient below. Please refer her to Dr. Oneill to have the site of her right upper arm re-excised. Result note: Hello: that spot that we removed from your right upper arm showed a severe degree of atypia--it was not a melanoma, but is a spot that could have possibly turned into one at some point. So, it is recommended to do a small excision at the site to be sure all the cells are removed so it does not recur. We will be reaching out to you with a referral (I would have you go to Dr. Oneill unless you want to go somewhere else) to help get that set up to be done at some point in the next several weeks. [facility] CNPNon 05-17-2024 [facility] Telephone (JOSIANEWS) MARSHALL WU ([id number]) 1935 F Date Time Provider Department 05/17/24 [facility] During your visit today, we recorded the following information about you: Josiane Lynn LPN 05/17/2024 10:16 AM Signed Left detailed message for pt advising that she would need to receive RSV vaccine at pharmacy d/t insurance coverage (Medicare). If received in office, she would be responsible for full cost of medication. Nurse visit appt for 05/19/24 cancelled at this time. Josiane Lynn LPN Allergies As of Date: 05/17/2024 Noted Allergy Reaction CIPROFLOXACIN 03/14/2019 14 - Other: See Comments Comments: Ankle and achilles pain SEASONAL ALLERGIES 12/19/2016 5 - Intolerance Date Reviewed: 04/29/2024 Reviewed by: Nadia Brambila APRN.STUDY LEAD - Fully Assessed Reason for Visit: Appointment [[id number]] Prescriptions as of 05/17/2024 - atorvastatin (LIPITOR) 20 mg tablet TAKE 1 TABLET DAILY AT BEDTIME FOR CHOLESTEROL - MAGNESIUM ORAL Take by mouth. - rOPINIRole (REQUIP) 1 mg tablet Take 1 tablet by mouth daily at bedtime. - lisinopril (ZESTRIL) 30 mg tablet Take 1 tablet by mouth once daily. - budesonide-formoterol (SYMBICORT) 160-4.5 mcg/actuation inhaler Inhale 2 Puffs as instructed two times a day. - hydroCHLOROthiazide 12.5 mg capsule Take 1 capsule by mouth once daily. - solifenacin 10 mg tablet Take 0.5 tablets by mouth once daily. - melatonin 10 mg cap Take 10 mg by mouth. - ESOMEPRAZOLE MAGNESIUM (NEXIUM 24HR ORAL) Take by mouth. Problem List As Of Date 05/17/2024 Noted Resolved Essential hypertension, benign [I10] Restless leg [G25.81] Hyperlipidemia [E78.5] GERD (gastroesophageal reflux disease) [K21.9] Osteopenia [M85.80] Cervicalgia [M54.2] 04/12/2015 Simple chronic bronchitis (HCC) [J41.0] 04/08/2017 Hyperglycemia [R73.9] 03/02/2019 COPD (chronic obstructive pulmonary disease) (H*03/25/2013 Multiple thyroid nodules [E04.2] 02/03/2021 Chronic sore throat [J31.2] 02/11/2021 Breast cyst, right [N60.01] 07/30/2021 Nontraumatic complete tear of left rotator cuff*07/31/2021 Squamous cell carcinoma in situ (SCCIS) of skin*07/31/2021 Acute midline low back pain without sciatica [M*11/06/2022 Encounter Status:Closed by JOSIANE LYNN on 05/17/24 Normal [facility] Inital Evaluation (1) - PTon 05-13-2024 Inital Evaluation (1) - PT [facility] [address] [place] [address] / REHABILITATION SERVICES INITIAL EVALUATION MR#: [id number] Acct: [id number] Name: MARSHALL WU Rep #: [id number] : 1935 89 From: Angel Salas PT, ATC Referring Dr.: YULI Barboza Status: R EG RCR Insurance: MEDICARE PART A B [employer] Patient's Visit Information Visit Information Visit Information: MARSHALL WU is a 89 year old F referred to Physical Therapy by YULI Barboza with a diagnosis of gait instability. Date of Evaluation: 05/13/24 Physical Therapist: Angel Salas, PT, ATC Visit Plan Frequency: 3x /Week Duration: 4-6 Weeks Plan: B LE strengthening, balance and proprio, core strengthening, gait training, stair negotiation, nustep, and HEP Subjective Subjective: Pt reports she had COVID in March. Pt notes once she recovered from the illness, she noticed decreased strength in her legs. Pt reports she has fallen 3 times in the past 6 weeks. Pt notes she has suffered minor injuries from her falls, but nothing debilitating. Pt notes she has neuropathy, and can somewhat feel her feet hit the ground, but she has decreased sensation. Pt notes no prior Hx of falls prior to the illness. Pt reports she is not in pain today. Pt reports she has no stairs at home, but is able to negotiate stairs one step at a time. Pt is an avid golfer, and notes she has not been able to golf since having COVID. Pt reports she feels steady on even ground, but feels very unsteady on uneven ground secondary to her neuropathy and LE weakness. Pt notes she ambulated with a walker after her fall, but has been walking I since. Objective Objective: Neuro: Pt has hypersensitivity in B LE's from the knees down. Sensation is WNL to light touch from the knees up MMT: B LE's are grossly 4-/5 throughout TU sec FGA: Balance/Special Test Scores Functional Gait Assessment Score: 14 % Disability: 53.3400 Lower Extremity Functional Score: 26 Goals Goal 1:: Increase B LE strength x 1 grade to aid with stair negotiation Goal Time Frame: 4-6 Weeks Goal 2:: Increase FGA x 5 points () to aid with preventing future falls Goal Time Frame: 4-6 Weeks Goal 3:: Pt will perform the TUG test in under 10 seconds to aid with community ambulation Goal Time Frame: 4-6 Weeks Goal 4:: I with HEP Goal Time Frame: 4-6 Weeks Rehabilitation Potential Physical Therapy Diagnosis: Pt has B LE weakness, decreased balance, and a Hx of falls secondary to debilitation Rehabilitation Potential: Good Anticipated Interventions Patient/Client Instruction: Educate patient on: Condition and Plan of Care For the Purpose of:: To improve self management Therapeutic Exercise to Include: Strength training, Endurance training, Balance training, Flexibilty training, Gait and locomotor training and Active ROM For the Purpose of:: To improve muscle performance and motor function, To increase tolerance to activity/condition/posi tion and To improve ability of physical actions for home/community/work/lei sure Text: Thank you for the opportunity to evaluate your patient. For Medicare and Medicare HMO plans, please review the plan of care and approve it. It will need to be FAXED BACK to us at [phone] for Medicare purposes. For Medicare only, by signing this I certify the plan of care. Please let me know if there are questions or concerns regarding this plan of care. Physician Signature: Date: 05/13/24 1205 CC: YULI Brambila; Dr. Bang Holland MD [facility] Signed Normal [facility] 37on 05-12-2024 37 BIOPSY / SURGICAL AFTERCARE 1. If a dressing is in place, please leave it for 24 hours unless given other instructions. 2. After that time, remove the initial bandage, and cleanse the area with a mild, fragrance free soap such as Dove, Cetaphil, or CeraVe. 3. Apply Vaseline to the area and cover with a new bandage. Please do not use Neosporin, Polysporin, or Bacitracin, as these may cause unwanted allergic reactions in some patients, and are not necessary for good healing. 4. Repeat the above steps every day for 7 days unless otherwise directed by physician or nurse. 5. If any bleeding occurs, use a clean cotton or gauze, apply firm, direct pressure to the area for 10 to 15 minutes. If the bleeding does not stop, call our office at [phone]. 6. The wound should improve daily. If you notice any increased redness, swelling, drainage, warmth, or pain in the area, please notify our office. Please be advised that it can take up to 2 weeks for these sites to heal. In some patients it may take even longer depending on location (lower legs / feet) and / or if the patient has history of diabetes. Our office will notify you of the results in about 2 weeks. Normal [facility] Cryotherapy, skin lesionon 1 [facility] Office Visiton 05-12-2024 Follow-up visit [id number] Mrashall Wu 1935 F Date Provider Department Center 05/12/2024 [id number] SANTIAGO [facility] None Family History Problem Relation Age of Onset Other Other Comments: No family hx of MM Family Status - Relation Status Age at Other Level of Service:[address] [place] OFFICE/OUTPATIENT ESTABLISHED MOD MDM 30 MIN (25) Reason for Visit and Comments: Skin Lesion [[id number]] - (LMS) Normal [facility] Progress Noteon 05-12-2024 Progress Note DATE OF SERVICE: 05/12/2024 PATIENT NAME: Marshall Wu : 1935 AGE: 89 y.o. CLINIC NUMBER: [id number] Visit type: Established patient Chief Complaint Patient presents with Skin Lesion (LMS) Subjective HISTORY OF PRESENT ILLNESS: Marshall Wu is a 89 y.o. with a history of skin cancer who presents today for a skin check. 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 The patient has no family history of skin cancer, no family history of melanoma, there is a history of excessive sun exposure, patient has never used tanning beds, does not use sunscreen regularly. Re-check Aks. Tx: 5 lesions on the R wrist x1, L cheek x2, R cheek x2 treated with LN2. Check spot on L jehovah's witness x 1 month. Pt states the lesion was raised and scaly, but has since calmed down. Has not bled. History of pacemaker/ defibrillator? No History of HIV/ Hep C? No Allergies to Lidocaine, Epinephrine, Latex or Adhesive? No Review of Systems Dermatology: as per HPI, otherwise negative There were no vitals filed for this visit. PHYSICAL EXAM: GENERAL APPEARANCE:?alert and oriented x3, well developed and well nourished. PSYCH: appropriate mood and affect LYMPHATIC: no palpable cervical, supraclavicular or axillae adenopathy. DERMATOLOGY: Please see diagram of patient examination (all noted lesions were examined dermoscopically; all measured lesions are pigmented macules with benign nevus patterns, unless otherwise noted) 1. Neoplasm of uncertain behavior of skin Right Upper Arm 7mm irregular pigmented macule Skin Biopsy Type of biopsy: tangential Informed consent: discussed and consent obtained Timeout: patient name, date of , surgical site, and procedure verified Anesthesia: the lesion was anesthetized in a standard fashion Anesthetic: 1% lidocaine w/ epinephrine 1-100,000 buffered w/ 8.4% NaHCO3 Instrument used: DermaBlade Hemostasis achieved with: electrodesiccation Outcome: patient tolerated procedure well Post-procedure details: wound care instructions given Specimen A - Tissue exam Differential Diagnosis: Atypical pigmented macule Check Margins: No Biopsy recommended. Patient expresses understanding and is in agreement with the plan. Biopsy (x1) obtained today. Patient educated that we will call with the biopsy results within 2 weeks. Care instructions reviewed and written instructions provided to patient. 2. Actinic keratoses (3) Left Chest, Left Lateral Cheek, Right Malar Cheek [place] scaly papules Patient educated on actinic keratosis and the possibility of transformation into SCC. Treatment options are discussed with risks and benefits reviewed. Patient is agreeable to start treatment with Efudex (fluorouracil) . Rx: Efudex (fluorouracil) Cream Apply a very thin layer to the L jehovah's witness twice daily x 2 weeks. Patient thoroughly educated about treatment with Efudex, including risks, benefits and detailed application instructions. The severity of your reaction to this medication cannot be predicted. It is normal to have some redness/ irritation and crusting, but to stop treatment if patient develops any pain, open sores, weeping, oozing or ulceration. If any issues with treatment, stop medication and contact office. The skin must be protected from sun exposure; use clothing, sunscreen, hats, etc. Apply 15-20 minutes before any other creams or makeup. Apply at least 1 hour before bedtime in order for medication to soak in. Do not get into eyes. Wash hands thoroughly after application. Cryotherapy Actinic Keratosis (focal lesions were treated with cryotherapy) Medical Necessity: It was explained to the patient that actinic keratoses are precancerous. Consent: The patient understood all the risks and benefits prior to treatment. The risks explained included scarring, hyper and/or hypopigmentation. Although this treatment is highly effective, recurrences do occur and this was explained to the patient. The patient further understood that these lesions are precancerous and may develop into a malignancy. Number of lesions treated/ location: R cheek x1, L chest x1 Method: Liquid nitrogen was used to treat the lesion(s) with two freeze-thaw cycles. Post-op: The patient was instructed to clean the site normally twice a day. Signs of infection were reviewed and patient was instructed to call if he/ she develops increasing pain, purulent drainage, or beefy redness. The patient was informed that a blister may occur at the cryo site and that this is an expected event. Sun protection was reviewed and patient advised to use sunscreen with SPF 30 or greater on exposed skin when outdoors. Post-op instructions were given orally and in writing. Cryotherapy, skin lesion - Left Chest, Right Mal (more content not included)... [facility] Skin Biopsyon 05-12-2024 Type of biopsy: tangential Informed consent: discussed and consent obtained Timeout: patient name, date of , surgical site, and procedure verified Anesthesia: the lesion was anesthetized in a standard fashion Anesthetic: 1% lidocaine w/ epinephrine 1-100,000 buffered w/ 8.4% NaHCO3 Instrument used: DermaBlade Hemostasis achieved with: electrodesiccation Outcome: patient tolerated procedure well Post-procedure details: wound care instructions [facility] AVIVASEAN MANLEYCISammi Chapa ([id number]) 1935 F Date Time Provider Department 04/29/24 2:40 PM [facility] During your visit today, we recorded the following information about you: Temperature Pulse Blood pressure Weight 97.7 degrees 95/minute 128/70 68.7 kg Nadia Brambila, DELFINA.STUDY LEAD 04/29/2024 3:06 PM Signed This is a 89 year old female who presents today with: Patient presents with: Laceration: Right knee Follow Up: [facility] Follow up HISTORY OF PRESENT ILLNESS: Marshall Wu is a 89 year old female. Patient presents with: Laceration: Right knee Follow Up: [facility] Follow up Tripped yesterday and got 2 large skin tears to right knee and left forearm. Bled through. Left shoulder bruised. Feels stiff all over. Did require steri strips and TDap PAST MEDICAL HISTORY: PAST MEDICAL HISTORY Diagnosis Date Aortic sclerosis 2012 Found on echo Arthritis of foot Bilateral heel spurs. 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 rOPINIRole (REQUIP) 1 mg tablet Take 1 tablet by mouth daily at bedtime. polyethylene glycol 3350 (MIRALAX) 17 gram/dose powder TAKE DAILY NEEDED FOR CONSTIPATION lisinopril (ZESTRIL) 30 mg tablet Take 1 tablet by mouth once daily. budesonide-formoterol (SYMBICORT) 160-4.5 mcg/actuation inhaler Inhale 2 Puffs as instructed two times a day. hydroCHLOROthiazide 12.5 mg capsule Take 1 capsule by mouth once daily. solifenacin 10 mg tablet Take 0.5 tablets by mouth once daily. atorvastatin (LIPITOR) 20 mg tablet TAKE 1 TABLET DAILY AT BEDTIME FOR CHOLESTEROL melatonin 10 mg cap Take 10 mg by mouth. ESOMEPRAZOLE MAGNESIUM (NEXIUM 24HR ORAL) Take by mouth. No current facility-administered medications for this visit. FAMILY HISTORY Problem Relation Age of Onset Alzheimer's Disease Mother Arthritis Father Stroke Father Breast Cancer Maternal Aunt other (lung cancer) Maternal Aunt Prostate Cancer Son Stroke Other Fatal. Brother in law. Social History Tobacco Use Smoking status: Former Current packs/day: 0.00 Average packs/day: 1.3 packs/day for 32.0 years (41.7 ttl pk-yrs) Types: Cigarettes Start date: 03/10/1955 Quit date: 07/14/1986 Years since quittin.8 Smokeless tobacco: Never Tobacco comments: Parents did not smoke in childhood home. Spouse non smoker. Vaping Use Vaping status: Never Used Substance Use Topics Alcohol use: Yes Comment: Occasional. Drug use: No EXAM: BP 128/70 Pulse 95 Temp 36.5 ?C (97.7 ?F) (Tympanic) Wt 68.7 kg (151 lb 7.3 oz) SpO2 96% BMI 26.83 kg/m? Right knee with a skin tear the size of an egg, no longer bleeding Left forearm a little larger that is no longer bleeding. Steri strips intact. No redness, drainage, sensation intact, rapid capillary refill distally LABS: ASSESSMENT/PLAN: 1. Skin tear of left forearm without complication, sequela - ICD9: 906.1, ICD10: S51.812S (primary diagnosis) Cleansed and non-adherent dressing applie 2. Skin tear of right lower leg without complication, subsequent encounter - ICD9: V58.89, 891.0, ICD10: S81.811D Cleansed and non-adherent dressing applied Discussed treatment plan and patient voices understanding. Patient's questions answered appropriately. Medications and potential side effects were discussed and patient voices understanding. Return to the office as scheduled or as needed for worsening/no improvement. AJ Menchaca APRN.CNP Suppan, Jacqueline A, APRN.CNP 04/29/2024 3:06 PM Signed 1) Clean gently and pat dry, cover with non-stick dressing or Vaseline and gauze 2) Follow up in 6 months Allergies As of Date: 04/29/2024 Noted Allergy Reaction CIPROFLOXACIN 03/14/2019 14 - Other: See Comments Comments: Ankle and achilles pain SEASONAL ALLERGIES 12/19/2016 5 - Intolerance Date Reviewed: 04/29/2024 Reviewed by: Nadia Brambila APRN.CNP - Fully Assessed Reason for Visit: Laceration [1747] Cmt: Right knee (more content not included)... Normal [facility] CNOVon 04-28-2024 CNOV Office Visit ([facility] ) MARSHALL WU ([id number]) 1935 F Date Time Provider Department 04/28/24 3:45 PM AUGIE MEDRANO [email or web address] During your visit today, we recorded the following information about you: Temperature Pulse Respiration Blood pressure 97.3 degrees 95/minute 18/minute 126/84 Weight 69 kg Augie Medrano PA 04/28/2024 4:50 PM Signed This note was created using AngelPrimeriter. Subjective Marshall Wu is a 89 year old female. HPI 89-year-old female presents for fall and skin tear. Patient states she tripped in her home about an hour ago on carpet. She fell onto her carpet. She has skin tear to left forearm and right knee. She has a little bit of pain in the knee, otherwise no pain. She did not hit her head or lose consciousness. She does not take any blood thinners. She denies any other injuries or complaints. Last tetanus was 2016 PAST MEDICAL HISTORY Diagnosis Date Aortic sclerosis 2012 Found on echo Arthritis of foot Bilateral heel spurs. 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 rOPINIRole (REQUIP) 1 mg tablet Take 1 tablet by mouth daily at bedtime. polyethylene glycol 3350 (MIRALAX) 17 gram/dose powder TAKE DAILY NEEDED FOR CONSTIPATION lisinopril (ZESTRIL) 30 mg tablet Take 1 tablet by mouth once daily. budesonide-formoterol (SYMBICORT) 160-4.5 mcg/actuation inhaler Inhale 2 Puffs as instructed two times a day. hydroCHLOROthiazide 12.5 mg capsule Take 1 capsule by mouth once daily. solifenacin 10 mg tablet Take 0.5 tablets by mouth once daily. atorvastatin (LIPITOR) 20 mg tablet TAKE 1 TABLET DAILY AT BEDTIME FOR CHOLESTEROL melatonin 10 mg cap Take 10 mg by mouth. ESOMEPRAZOLE MAGNESIUM (NEXIUM 24HR ORAL) Take by mouth. FAMILY HISTORY Problem Relation Age of Onset Alzheimer's Disease Mother Arthritis Father Stroke Father Breast Cancer Maternal Aunt other (lung cancer) Maternal Aunt Prostate Cancer Son Stroke Other Fatal. Brother in law. Social History Tobacco Use Smoking status: Former Current packs/day: 0.00 Average packs/day: 1.3 packs/day for 32.0 years (41.7 ttl pk-yrs) Types: Cigarettes Start date: 03/10/1955 Quit date: 07/14/1986 Years since quittin.8 Smokeless tobacco: Never Tobacco comments: Parents did not smoke in childhood home. Spouse non smoker. Vaping Use Vaping status: Never Used Substance Use Topics Alcohol use: Yes Comment: Occasional. Drug use: No Review of Systems Constitutional: Negative for chills and fever. HENT: Negative for congestion, ear pain and sore throat. Respiratory: Negative for cough and shortness of breath. Cardiovascular: Negative for chest pain. Gastrointestinal: Negative for diarrhea and vomiting. Skin: Positive for wound. Objective BP 126/84 Pulse 95 Temp 36.3 ?C (97.3 ?F) (Tympanic) Resp 18 Wt 69 kg (152 lb 1.9 oz) SpO2 98% BMI 26.95 kg/m? Physical Exam Vitals and nursing note reviewed. Constitutional: General: She is not in acute distress. Appearance: Normal appearance. She is not toxic-appearing. Cardiovascular: Rate and Rhythm: Normal rate and regular rhythm. Pulmonary: Effort: Pulmonary effort is normal. Breath sounds: Normal breath sounds. Musculoskeletal: Left shoulder: No tenderness or bony tenderness. Left forearm: Laceration (Skin tear) present. No tenderness or bony tenderness. Cervical back: Normal. Thoracic back: Normal. Lumbar back: Normal. Right knee: Bony tenderness present. Normal range of motion. Tenderness present over the medial joint line. Normal pulse. Comments: Tenderness over right medial joint line. No obvious swelling or deformity. Normal flexion extension. Nontender hip or ankle. Skin tear noted to right knee. Please see skin. Nontender cervical, thoracic, lumbar spine. Able to ambulate. Skin tear noted to left forearm. No tenderness or bony tenderness. Normal ROM wrist, elbow, hand. No swelling or deformities. Nontender shoulder. Normal ROM left shoulder. Contusion noted to left shoulder. Nontender. Skin: General: (more content not included)... Normal [facility] XR KNEE 4V AP/PA BOTH+LAT/ME R RTon 04-28-2024 XR KNEE 4V AP/PA BOTH+LAT/CATY RT * * *Final Report* * * DATE OF EXAM: Apr 28 2024 4:34PM WOX 5203 - XR KNEE 4V AP/PA BOTH+LAT/CATY RT / PROCEDURE REASON: Acute pain of right knee * * * * Physician Interpretation * * * * TITLE: XR KNEE 4V AP/PA BOTH+LAT/CATY RT CLINICAL INDICATION: Knee pain TECHNIQUE: AP/PA/merchant radiographs of both knees and lateral radiograph of the right knee COMPARISON: None FINDINGS: Right knee: Small joint effusion. No acute fracture or dislocation identified. Superior patellar enthesophyte. Left knee: No acute fracture or dislocation identified IMPRESSION: Small right knee joint effusion without radiographic evidence of acute osseous injury. Adult High School Instructor: [facility] Transcribe Date/Time: Apr 28 2024 4:39P Dictated by : MARCY BRADFORD MD This examination was interpreted and the report reviewed and electronically signed by: MARCY BRADFORD MD on Apr 28 2024 4:44PM EST [id number] Normal [facility] XR Knee - right 4 Viewson IMPRESSION: Small right knee joint effusion without radiographic evidence of acute osseous injury. Adult High School Instructor: [facility] Transcribe Date/Time: Apr 28 2024 4:39P Dictated by : MARCY BRADFORD MD This examination was interpreted and the report reviewed and electronically signed by: MARCY BRADFORD MD on Apr 28 2024 4:44PM EST DIVISION OF RADIOLOGY * * *Final Report* * * DATE OF EXAM: Apr 28 2024 4:34PM WOX 5203 - XR KNEE 4V AP/PA BOTH+LAT/CATY RT / PROCEDURE REASON: Acute pain of right knee * * * * Physician Interpretation * * * * TITLE: XR KNEE 4V AP/PA BOTH+LAT/CATY RT CLINICAL INDICATION: Knee pain TECHNIQUE: AP/PA/merchant radiographs of both knees and lateral radiograph of the right knee COMPARISON: None FINDINGS: Right knee: Small joint effusion. No acute fracture or dislocation identified. Superior patellar enthesophyte. Left knee: No acute fracture or dislocation identified DIVISION [facility] RADIOLOGY [facility] * * *Final Report* * * DATE OF EXAM: Apr 28 2024 4:34PM WOX 5203 - XR KNEE 4V AP/PA BOTH+LAT/CATY RT / PROCEDURE REASON: Acute pain of right knee * * * * Physician Interpretation * * * * TITLE: XR KNEE 4V AP/PA BOTH+LAT/CATY RT CLINICAL INDICATION: Knee pain TECHNIQUE: AP/PA/merchant radiographs of both knees and lateral radiograph of the right knee COMPARISON: None FINDINGS: Right knee: Small joint effusion. No acute fracture or dislocation identified. Superior patellar enthesophyte. Left knee: No acute fracture or dislocation identified IMPRESSION IMPRESSION: Small right knee joint effusion without radiographic evidence of acute osseous injury. Adult High School Instructor: ANDRZEJ Transcribe Date/Time: Apr 28 2024 4:39P Dictated by : MARCY BRADFORD MD This examination was interpreted and the report reviewed and electronically signed by: MARCY BRADFORD MD on Apr 28 2024 4:44PM EST [facility] Radiology Study observation (narrative) [facility] XR Knee - right 4 ViewsOrder ed By: Ccf Provider on 04-28-2024 [facility] DBT Breast - bilateral scree margiegon 04-15-2024 IMPRESSION: There is no mammographic evidence of malignancy. Routine follow-up mammogram in 1 year is recommended. BI-RADS Category 2: Benign Interpreting Radiologist: Justus Bansal M.D. Adult High School Instructor: TIA Transcribe Date/Time: Apr 14 2024 10:23A Dictated by: JUSTUS BANSAL MD This examination was interpreted and the report reviewed and electronically signed by: JUSTUS BANSAL MD on Apr 15 2024 8:06AM [facility] DIVISION OF RADIOLOGY * * *Final Report* * * DATE OF EXAM: Apr 14 2024 10:57AM [facility] 0582 - DAMARIS SCREENING W BERLIN / PROCEDURE REASON: multiple diagnoses * * * * Physician Interpretation * * * * RESULT: [facility] [address] [place] [address] HISTORY: Patient is 89 years old and is seen for screening and is asymptomatic in both breasts. COMPARISON STUDIES: The present examination has been compared to prior imaging studies dated 03/24/2018 (mammogram), 04/21/2020 (mammogram) and 04/24/2021 (mammogram). MAMMOGRAM TECHNIQUE: The study was acquired using full field digital technology and interpreted from soft copy. Digital Breast Tomosynthesis (DBT) images were obtained and used to assist in the interpretation of this examination. Computer-aided detection was utilized by the radiologist in the interpretation of this examination. MAMMOGRAM FINDINGS: There are scattered areas of fibroglandular density. There are post-lumpectomy changes in the right breast. No suspicious masses, calcifications or other abnormalities are seen in either breast. DIVISION OF RADIOLOGY Provider, [facility] - 04/15/2024 * * *Final Report* * * DATE OF EXAM: Apr 14 2024 10:57AM [facility] 0582 - DAMARIS SCREENING W BERLIN / PROCEDURE REASON: multiple diagnoses * * * * Physician Interpretation * * * * RESULT: [place] [address] HISTORY: Patient is 89 years old and is seen for screening and is asymptomatic in both breasts. COMPARISON STUDIES: The present examination has been compared to prior imaging studies dated 03/24/2018 (mammogram), 04/21/2020 (mammogram) and 04/24/2021 (mammogram). MAMMOGRAM TECHNIQUE: The study was acquired using full field digital technology and interpreted from soft copy. Digital Breast Tomosynthesis (DBT) images were obtained and used to assist in the interpretation of this examination. Computer-aided detection was utilized by the radiologist in the interpretation of this examination. MAMMOGRAM FINDINGS: There are scattered areas of fibroglandular density. There are post-lumpectomy changes in the right breast. No suspicious masses, calcifications or other abnormalities are seen in either breast. IMPRESSION IMPRESSION: There is no mammographic evidence of malignancy. Routine follow-up mammogram in 1 year is recommended. BI-RADS Category 2: Benign Interpreting Radiologist: Justus Bansal M.D. Adult High School Instructor: TIA Transcribe Date/Time: Apr 14 2024 10:23A Dictated by: JUSTUS BANSAL MD This examination was interpreted and the report reviewed and electronically signed by: JUSTUS BANSAL MD on Apr 15 2024 8:06AM EST [facility] DBT Breast - bilateral scree ningOrdered By: Ccf Provider on 04-15-2024 [facility] DBT Breast - bilateral scree margiegon 04-14-2024 Radiology Study observation (narrative) [facility] DAMARIS SCREENING W TOMOon 04-14 DAMARIS SCREENING W BERLIN * * *Final Report* * * DATE OF EXAM: Apr 14 2024 10:57AM [facility] 0582 - DAMARIS SCREENING W BERLIN / PROCEDURE REASON: multiple diagnoses * * * * Physician Interpretation * * * * RESULT: [place] [address] [place] [address] HISTORY: Patient is 89 years old and is seen for screening and is asymptomatic in both breasts. COMPARISON STUDIES: The present examination has been compared to prior imaging studies dated 03/24/2018 (mammogram), 04/21/2020 (mammogram) and 04/24/2021 (mammogram). MAMMOGRAM TECHNIQUE: The study was acquired using full field digital technology and interpreted from soft copy. Digital Breast Tomosynthesis (DBT) images were obtained and used to assist in the interpretation of this examination. Computer-aided detection was utilized by the radiologist in the interpretation of this examination. MAMMOGRAM FINDINGS: There are scattered areas of fibroglandular density. There are post-lumpectomy changes in the right breast. No suspicious masses, calcifications or other abnormalities are seen in either breast. IMPRESSION: There is no mammographic evidence of malignancy. Routine follow-up mammogram in 1 year is recommended. BI-RADS Category 2: Benign Interpreting Radiologist: Justus Bansal M.D. Adult High School Instructor: TIA Transcribe Date/Time: Apr 14 2024 10:23A Dictated by: JUSTUS BANSAL MD This examination was interpreted and the report reviewed and electronically signed by: JUSTUS BANSAL MD on Apr 15 2024 8:06AM EST [id number] [facility] CNOVon 04-07-2024 CNOV Office Visit (FAMPWS ) MARSHALL WU ([id number]) 1935 F Date Time Provider Department 04/07/24 10:00 AM GEMA COLEMAN During your visit today, we recorded the following information about you: Pulse Respiration Blood pressure 95/minute 16/minute 130/72 Gema Coleman, DELFINA.STUDY LEAD 04/07/2024 4:52 PM Signed This is a 89 year old female who presents today with: Patient presents with: Hip Pain: R hip x2 days HISTORY OF PRESENT ILLNESS: Marshall Wu is a 89 year old female. Patient presents with: Hip Pain: R hip x2 days Pt presents today with complaint of right hip pain. Refers on Friday, she went to fall, didn't fall, but did hit something with her right leg and got a bruise. She was able to ambulate and run errands the remainder of the day. On Friday, she got up and could hardly walk on her right hip. She is active and walks and swims. She is currently having to walk with a walker because of the hip pain. Weight bearing worsens the pain. Took an aleve yesterday, which didn't help much. She tried to ambulate with a cane, but didn't feel steady. Currently using a walker. PAST MEDICAL HISTORY: PAST MEDICAL HISTORY Diagnosis Date Aortic sclerosis 2012 Found on echo Arthritis of foot Bilateral heel spurs. 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 PAST SURGICAL HISTORY Procedure Laterality Date ARTHROPLASTY GLENOHUMRL JT HEMIARTHROPLASTY Left 03/2022 Arthroplasty, shoulder BREAST LUMPECTOMY HX Right 09/13/2021 U/S guided open right breast lumpectomy COLONOSCOPY FLX DX W/COLLJ SPEC WHEN PFRMD 03/26/2007 Colonoscopy DILATION AND CURETTAGE DXAND/THER NONOBSTETRIC Dilation AND curettage LAPAROSCOPY SURG CHOLECYSTECTOMY 1979 Cholecystectomy, lap SKIN BIOPSY HX ALLERGIES Ciprofloxacin and Seasonal Allergies MEDICATIONS Current Outpatient Medications Medication Sig polyethylene glycol 3350 (MIRALAX) 17 gram/dose powder TAKE DAILY NEEDED FOR CONSTIPATION lisinopril (ZESTRIL) 30 mg tablet Take 1 tablet by mouth once daily. budesonide-formoterol (SYMBICORT) 160-4.5 mcg/actuation inhaler Inhale 2 Puffs as instructed two times a day. hydroCHLOROthiazide 12.5 mg capsule Take 1 capsule by mouth once daily. rOPINIRole (REQUIP) 1 mg tablet Take 1 tablet by mouth daily at bedtime. solifenacin 10 mg tablet Take 0.5 tablets by mouth once daily. atorvastatin (LIPITOR) 20 mg tablet TAKE 1 TABLET DAILY AT BEDTIME FOR CHOLESTEROL melatonin 10 mg cap Take 10 mg by mouth. ESOMEPRAZOLE MAGNESIUM (NEXIUM 24HR ORAL) Take by mouth. No current facility-administered medications for this visit. FAMILY HISTORY Problem Relation Age of Onset Alzheimer's Disease Mother Arthritis Father Stroke Father Breast Cancer Maternal Aunt other (lung cancer) Maternal Aunt Prostate Cancer Son Stroke Other Fatal. Brother in law. Social History Tobacco Use Smoking status: Former Current packs/day: 0.00 Average packs/day: 1.3 packs/day for 32.0 years (41.7 ttl pk-yrs) Types: Cigarettes Start date: 03/10/1955 Quit date: 07/14/1986 Years since quittin.7 Smokeless tobacco: Never Tobacco comments: Parents did not smoke in childhood home. Spouse non smoker. Vaping Use Vaping status: Never Used Substance Use Topics Alcohol use: Yes Comment: Occasional. Drug use: No EXAM: BP 130/72 Pulse 95 Resp 16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 esomeprazole magnesium 20 mg 20 mg PO DAILY 09/29/17 Unknown History capsule,delayed release ascorbate calcium (vitamin C) 500 500 mg PO DAILY PRN 08/29/20 Unknown History mg tablet budesonide-formoterol HFA 160 2 puff inhalation BID 08/29/20 Unknown History mcg-4.5 mcg/actuation aerosol inhaler cholecalciferol (vitamin D3) 125 125 mcg PO DAILY PRN 08/29/20 Unknown History mcg (5,000 unit) capsule lisinopril 20 mg tablet 20 mg PO DAILY 08/29/20 Unknown History melatonin 10 mg capsule 10 mg PO HS PRN 08/29/20 Unknown History zinc 50 mg tablet 25 mg PO DAILY PRN 08/29/20 Unknown History lidocaine-prilocaine 2.5 %-2.5 % 1 applic topical TID PRN pain in 08/20/21 Unknown Rx topical cream feet #30 grams amlodipine 2.5 mg tablet 5 mg PO DAILY 06/18/22 Unknown History ropinirole 1 mg tablet 1 mg PO QHS #90 tabs 06/18/22 Unknown Rx Allergy/AdvReac Type Severity Reaction Status Date / Time ciprofloxacin (From Cipro) AdvReac Intermediate decreased Verified 02/25/24 11:34 muscle strength Surgical History History of reverse total replacement of left shoulder joint Status post right breast lumpectomy Social History Smoking Status: Former smoker Tobacco: How many years used: 20 how long ago did patient quit smokin years ago second hand exposure: Yes (Did smoke in the house) alcohol intake: current alcohol intake frequency: other details: social substance use type: does not use seatbelt use: always ROS ROS ED ROS Narrative Denies recent illness. She is anxious. Review of Systems ROS Unobtainable: Denies due to encephalopathy Constitutional Constitutional ED: Denies chills or fever(s) Eyes Eyes: Denies blurry vision ENT ENT ED: Denies ear pain Cardiovascular Cardiovascular: Denies chest pain Respiratory/Chest Respiratory/Chest: Denies cough or dyspnea Gastrointestinal Gastrointestinal: Denies abdominal pain Genitourinary Genitourinary ED: Denies dysuria Integumentary Denies abscess Neurologic Neurologic: Denies headache(s) Psychiatric Psychiatric: Reports anxiety Endocrine Endocrinology: Denies cold intolerance Hematologic/Lymphatic Hematologic/Lymphatic: Reports none Allergic/Immunologic Allergic/Immunologic ED: Denies mouth swelling, tongue swelling or urticaria EXAM Physical Exam Narrative Exam Narrative: Well-appearing 88-year-old female. Vital signs blood pressure is elevated at 204/87. She does not seem septic or toxic. She is in no distress. H EENT exam unremarkable atraumatic. No facial droop. Normal speech. Neck nontender. No JVD. Lungs clear to auscultation bilaterally. Heart regular rhythm no murmur. Rate about 90. Chest wall and ribs nontender. Abdomen soft nontender. Moving all 4 extremities. 5 of 5 clinical exercise specialist strength. Dorsi plantarflexion intact. Nontender no edema. Back unremarkable. Nontender. Neurologically she is awake alert no focal motor deficits. Const Vital Signs: 02/25/24 11:24 02/25/24 11:44 02/25/24 12:13 Temperature 96.9 F L Temperature Source Temporal Pulse Rate 91 Respiratory Rate 16 Blood Pressure 204/87 H 152/91 H 177/70 H Blood Pressure Mean 126 111 105 Pulse Ox 97 Oxygen Delivery Method Room Air Positive well nourished and well developed; Negative for cachectic, contractures or unkempt General Appearance E (more content not included)... Normal [facility] Cryotherapy, skin lesionon 0 11-18-2023 [facility] Skin Biopsyon 11-18-2023 Type of biopsy: tangential Informed consent: discussed and consent obtained Timeout: patient name, date of , surgical site, and procedure verified Anesthesia: the lesion was anesthetized in a standard fashion Anesthetic: 1% lidocaine w/ epinephrine 1-100,000 buffered w/ 8.4% NaHCO3 Instrument used: DermaBlade Hemostasis achieved with: electrodesiccation Outcome: patient tolerated procedure well Post-procedure details: wound care instructions given [facility] Type of biopsy: tangential Informed consent: discussed and consent obtained Timeout: patient name, date of , surgical site, and procedure verified Anesthesia: the lesion was anesthetized in a standard fashion Anesthetic: 1% lidocaine w/ epinephrine 1-100,000 buffered w/ 8.4% NaHCO3 Instrument used: DermaBlade Hemostasis achieved with: electrodesiccation Outcome: patient tolerated procedure well Post-procedure details: wound care instructions given [facility] XR Hand - right PA and Later al and Obliqueon 10-17-2023 IMPRESSION: No acute fracture. Degenerative disease of the right hand. Adult High School Instructor: PSCB Transcribe Date/Time: Oct 17 2023 11:53A Dictated by : JOSIANE BRIGGS MD This examination was interpreted and the report reviewed and electronically signed by: JOSIANE BRIGGS MD on Oct 17 2023 11:55AM [facility] DIVISION OF RADIOLOGY * * *Final Report* * * DATE OF EXAM: Oct 17 2023 11:38AM WOX [id number] - XR HAND 3V PA/LAT/OBL RT / PROCEDURE REASON: Right hand pain * * * * Physician Interpretation * * * * EXAMINATION: XR HAND 3V PA/LAT/OBL RT CLINICAL HISTORY: Right hand pain Technique: XR HAND 3V PA/LAT/OBL RT -- RIGHT with 3 views on 3 images Comparison: None RESULT: Generalized osteopenia. No acute fracture or dislocation. Triscaphe joint space narrowing with subchondral sclerosis. Right first carpometacarpal joint space narrowing with subchondral sclerosis and marginal osteophytes. Narrowing of the second and third metacarpophalangeal joints. Narrowing of multiple interphalangeal joints with marginal osteophytes. DIVISION OF RADIOLOGY Provider, [facility] - 10/17/2023 * * *Final Report* * * DATE OF EXAM: Oct 17 2023 11:38AM WOX [id number] - XR HAND 3V PA/LAT/OBL RT / PROCEDURE REASON: Right hand pain * * * * Physician Interpretation * * * * EXAMINATION: XR HAND 3V PA/LAT/OBL RT CLINICAL HISTORY: Right hand pain Technique: XR HAND 3V PA/LAT/OBL RT -- RIGHT with 3 views on 3 images Comparison: None RESULT: Generalized osteopenia. No acute fracture or dislocation. Triscaphe joint space narrowing with subchondral sclerosis. Right first carpometacarpal joint space narrowing with subchondral sclerosis and marginal osteophytes. Narrowing of the second and third metacarpophalangeal joints. Narrowing of multiple interphalangeal joints with marginal osteophytes. IMPRESSION IMPRESSION: No acute fracture. Degenerative disease of the right hand. Adult High School Instructor: ANDRZEJ Transcribe Date/Time: Oct 17 2023 11:53A Dictated by : JOSIANE BRIGGS MD This examination was interpreted and the report reviewed and electronically signed by: JOSIANE BRIGGS MD on Oct 17 2023 11:55AM EST [facility] Radiology Study observation (narrative) [facility] XR Hand - right PA and Later al and ObliqueOrdered By: [facility]cf Provider on 10-17-2023 [facility] XR CHEST 2V FRONTAL/LATon [facility] XR Chest PA and Lateralon IMPRESSION: No acute radiographic abnormality. Adult High School Instructor: ANDRZEJ Transcribe Date/Time: May 13 2023 12:20P Dictated by : TONY TIWARI DO This examination was interpreted and the report reviewed and electronically signed by: TONY TIWARI DO on May 13 2023 12:22PM [facility] DIVISION OF RADIOLOGY * * *Final Report* * * DATE OF EXAM: May 13 2023 12:13PM WOX [id number] - XR CHEST 2V FRONTAL/LAT / PROCEDURE REASON: Suspected COVID-19 virus infection * * * * Physician Interpretation * * * * EXAMINATION: CHEST RADIOGRAPH (2 VIEW FRONTAL & LATERAL) PATIENT/TECHNOLOGIST PROVIDED HISTORY: cough, congestion and sob for 4 days CLINICAL HISTORY: 88 years old Female with Suspected COVID-19 virus infection MQ: XC2_6 EXAM DATE/TIME: 05/13/2023 12:13 PM COMPARISON: Chest radiograph 04/15/2016, 03/10/2014 RESULT: Lines, tubes, and devices: None. Lungs and pleura: No consolidation or edema. No pleural effusion or pneumothorax. Cardiomediastinal silhouette: Normal cardiomediastinal silhouette. Bones and soft tissues: Status post reverse LEFT total shoulder arthroplasty. Endplate degenerative changes in the visualized spine. DIVISION OF RADIOLOGY Provider, [facility] - 05/13/2023 * * *Final Report* * * DATE OF EXAM: May 13 2023 12:13PM WOX [id number] - XR CHEST 2V FRONTAL/LAT / PROCEDURE REASON: Suspected COVID-19 virus infection * * * * Physician Interpretation * * * * EXAMINATION: CHEST RADIOGRAPH (2 VIEW FRONTAL & LATERAL) PATIENT/TECHNOLOGIST PROVIDED HISTORY: cough, congestion and sob for 4 days CLINICAL HISTORY: 88 years old Female with Suspected COVID-19 virus infection MQ: XC2_6 EXAM DATE/TIME: 05/13/2023 12:13 PM COMPARISON: Chest radiograph 04/15/2016, 03/10/2014 RESULT: Lines, tubes, and devices: None. Lungs and pleura: No consolidation or edema. No pleural effusion or pneumothorax. Cardiomediastinal silhouette: Normal cardiomediastinal silhouette. Bones and soft tissues: Status post reverse LEFT total shoulder arthroplasty. Endplate degenerative changes in the visualized spine. IMPRESSION IMPRESSION: No acute radiographic abnormality. Adult High School Instructor: PSCSheryl Transcribe Date/Time: May 13 2023 12:20P Dictated by : TONY TIWARI DO This examination was interpreted and the report reviewed and electronically signed by: TONY TIWARI DO on May 13 2023 12:22PM EST [facility] Radiology Study observation (narrative) [facility] XR Chest PA and LateralOrder ed By: Ccf Provider on 05-13-2023 [facility] CNOVon 04-10-2023 CNOV [facility] MARSHALL WU ([id number]) 1935 F Date Time Provider Department 04/10/23 2:00 PM CLEO CANNON During your visit today, we recorded the following information about you: Pulse Blood pressure Weight Height 91/minute 149/84 69.9 kg 1.6 m Cleo Cannon MD 04/10/2023 2:15 PM Signed [place] [address] HPI: Ms. Wu is a White 88 year old woman who presents for follow up clinical breast examination after diagnostic right breast imaging. 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 This was treated with lumpectomy alone. Her margins were close (< 2 mm) but clear. The patient referred not to return to the operating room if possible for wider margins. The patient declined adjuvant radiation therapy. FAMILY HISTORY Problem Relation Age of Onset Alzheimer's Disease Mother Arthritis Father Stroke Father Breast Cancer Maternal Aunt other (lung cancer) Maternal Aunt Prostate Cancer Son Stroke Other Fatal. Brother in law. PAST MEDICAL HISTORY Diagnosis Date Aortic sclerosis 2012 Found on echo Arthritis of foot Bilateral heel spurs. 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 PAST SURGICAL HISTORY Procedure Laterality Date ARTHROPLASTY GLENOHUMRL JT HEMIARTHROPLASTY Left 03/2022 Arthroplasty, shoulder BREAST LUMPECTOMY HX Right 09/13/2021 U/S guided open right breast lumpectomy COLONOSCOPY FLX DX W/COLLJ SPEC WHEN PFRMD 03/26/2007 Colonoscopy DILATION AND CURETTAGE DXAND/THER NONOBSTETRIC Dilation AND curettage LAPAROSCOPY SURG CHOLECYSTECTOMY 1979 Cholecystectomy, lap SKIN BIOPSY HX Social History Tobacco Use Smoking status: Former Packs/day: 1.30 Years: 32.00 Additional pack years: 0.00 Total pack years: 41.60 Types: Cigarettes Start date: 03/10/1955 Quit date: 07/14/1986 Years since quittin.7 Smokeless tobacco: Never Tobacco comments: Parents did not smoke in childhood home. Spouse non smoker. Vaping Use Vaping Use: Never used Substance Use Topics Alcohol use: Yes Comment: Occasional. Drug use: No No question data found. LAB AND IMAGING RESULTS: IMPRESSION: BENIGN FINDING There is no mammographic evidence of malignancy. Return to annual mammogram screening schedule is recommended. Darien Bautista M.D. tab/penrad:04/10/2023 13:39:34 Head Refrigerating Engineer(s): Viola Bliss)(M), [facility] Mammogram BI-RADS: 2 Benign finding Multiple national specialty organizations have released breast cancer screening guidelines for women at average risk for developing breast cancer - guidelines that are based on both evidence and opinion, yet differ on when to start and how often to screen for breast cancer. With representation from Breast Imaging, Internal Medicine, Women's Health, Family Medicine, and Medical/Surgical Oncology, the [facility] has carefully reviewed the data and reached the following consensus: 1) All women should engage in shared decision-making with their providers to decide when to start and how often to screen; 2) All women should have the opportunity to start screening mammography at age 40; 3) For women ages 45-55, we recommend annual screening mammograms; 4) For women ages 55 and over, we support both the transition from an annual to a biennial interval if this aligns more with patient's values and preferences, or continuation with annual screening; 5) All women should discuss with their providers when to stop screening mammograms. Adult High School Instructor: Tena Transcribe Date/Time: Apr 10 2023 1:00P Dictated by : DARIEN BAUTISTA MD This examination was interpreted and the report reviewed and electronically signed by: DARIEN BAUTISTA MD on Apr 10 2023 1:39PM EST Results-Findings * * *Final Report* * * DATE OF EXAM: Apr 10 2023 1:38PM [facility] [id number] - [facility] SATISHG W BERLIN VITOR / PROCEDURE REASON: Ductal carcinoma in situ (DCIS) of right breast * * * * Physician Interpretation * * * * #[id number] - [facility] DIAG W BERLIN VITOR BILATERAL DIGITAL DIAGNOSTIC MAMMOGRAM TOMOSYNTHESIS WITH CAD: 04/10/2023 HISTORY: Ductal Carcinoma In Situ (Dcis) Of Right Breast/ Asymptomatic diagnostic mammogram. Personal history of breast cancer. RESULT: TECHNIQUE: The study was acquired using full field digital technology and interpreted from soft copy. Digital Breast Tomosynthesis (DBT) images were obtained and used to assist in the interpretation of this examination. (more content not included)... Normal [facility] DIAG W BERLIN BILon 2022 [facility] DIAG W BERLIN VITOR * * *Final Report* * * DATE OF EXAM: Apr 10 2023 1:38PM [facility] 0627 - [facility] DIAG W BERLIN VITOR / PROCEDURE REASON: Ductal carcinoma in situ (DCIS) of right breast * * * * Physician Interpretation * * * * #[id number] - DAMARIS QUENTIN GAYLEO VITOR BILATERAL DIGITAL DIAGNOSTIC MAMMOGRAM TOMOSYNTHESIS WITH CAD: 04/10/2023 HISTORY: Ductal Carcinoma In Situ (Dcis) Of Right Breast/ Asymptomatic diagnostic mammogram. Personal history of breast cancer. RESULT: TECHNIQUE: The study was acquired using full field digital technology and interpreted from soft copy. Digital Breast Tomosynthesis (DBT) images were obtained and used to assist in the interpretation of this examination. Current study was also evaluated with a Computer Aided Detection (CAD). Comparison is made to exams dated: 10/07/2022 mammogram - [facility], 03/26/2022 mammogram, 08/15/2021 mammogram, and 05/29/2021 mammogram - [facility]. There are scattered areas of fibroglandular density. There are post-op changes associated with the right breast. No significant masses, calcifications, or other findings are seen in either breast. IMPRESSION: BENIGN FINDING There is no mammographic evidence of malignancy. Return to annual mammogram screening schedule is recommended. Darien Bautista M.D. tab/penrad:04/10/2023 13:39:34 Head Refrigerating Engineer(s): Se Bliss(R)(M), [facility] Mammogram BI-RADS: 2 Benign finding Multiple national specialty organizations have released breast cancer screening guidelines for women at average risk for developing breast cancer - guidelines that are based on both evidence and opinion, yet differ on when to start and how often to screen for breast cancer. With representation from Breast Imaging, Internal Medicine, Women's Health, Family Medicine, and Medical/Surgical Oncology, the [facility] has carefully reviewed the data and reached the following consensus: 1) All women should engage in shared decision-making with their providers to decide when to start and how often to screen; 2) All women should have the opportunity to start screening mammography at age 40; 3) For women ages 45-55, we recommend annual screening mammograms; 4) For women ages 55 and over, we support both the transition from an annual to a biennial interval if this aligns more with patient's values and preferences, or continuation with annual screening; 5) All women should discuss with their providers when to stop screening mammograms. Adult High School Instructor: Tena Transcribe Date/Time: Apr 10 2023 1:00P Dictated by : DARIEN BAUTISTA MD This examination was interpreted and the report reviewed and electronically signed by: DARIEN BAUTISTA MD on Apr 10 2023 1:39PM EST [id number] Normal [facility] DAMARIS DIAG W BERLIN BILATERALon 04-10-2023 [facility] TSH BLDon 02-11-2023 TSH Qn 1.190 m[IU]/L 0.270 - 4.200 mIU/L [facility] CNOVon 10-07-2022 CNOV Office Visit ([facility] R) MARSHALL WU ([id number]) 1935 F Date Time Provider Department 10/07/22 2:15 PM CLEO CANNON During your visit today, we recorded the following information about you: Pulse Blood pressure Weight Height 98/minute 143/73 68 kg 1.6 m Cleo Cannon MD 10/07/2022 3:19 PM Signed Cleo Cannon MD [facility] [address] [place], [place] [id number] HPI: Ms. Wu is a White 87 year old woman who presents for follow up clinical breast examination after diagnostic breast imaging. 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 This was treated with lumpectomy alone. Her margins were close (< 2mm) but clear. The patient preferred not to return to the operating room if possible for wider margins. FAMILY HISTORY Problem Relation Age of Onset Alzheimer's Disease Mother Arthritis Father Stroke Father Breast Cancer Maternal Aunt other (lung cancer) Maternal Aunt Prostate Cancer Son Stroke Other Fatal. Brother in law. PAST MEDICAL HISTORY Diagnosis Date Aortic sclerosis 2012 Found on echo Arthritis of foot Bilateral heel spurs. 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 PAST SURGICAL HISTORY Procedure Laterality Date ARTHROPLASTY GLENOHUMRL JT HEMIARTHROPLASTY Left 03/2022 Arthroplasty, shoulder BREAST LUMPECTOMY HX Right 09/13/2021 U/S guided open right breast lumpectomy BREAST LUMPECTOMY HX Right 09/2021 COLONOSCOPY FLX DX W/COLLJ SPEC WHEN PFRMD 03/26/2007 Colonoscopy DILATION AND CURETTAGE DXAND/THER NONOBSTETRIC Dilation AND curettage LAPAROSCOPY SURG CHOLECYSTECTOMY 1979 Cholecystectomy, lap SKIN BIOPSY HX Social History Tobacco Use Smoking status: Former Packs/day: 1.30 Years: 32.00 Pack years: 41.60 Types: Cigarettes Start date: 03/10/1955 Quit date: 07/14/1986 Years since quittin.2 Smokeless tobacco: Never Tobacco comments: Parents did not smoke in childhood home. Spouse non smoker. Vaping Use Vaping Use: Never used Substance Use Topics Alcohol use: Yes Comment: Occasional. Drug use: No No question data found. LAB AND IMAGING RESULTS: IMPRESSION: BENIGN FINDING The irregular mass in the right breast resembles a lymph node and is benign. There is no mammographic evidence of malignancy. A 1 year screening mammogram is recommended. LIMITED ULTRASOUND OF RIGHT BREAST: 10/07/2022 RESULT: Comparison is made to exams dated: 03/26/2022 mammogram, 08/22/2021 mammogram, 08/15/2021 mammogram, 05/29/2021 mammogram, 04/24/2021 mammogram, and 04/21/2020 mammogram - [facility]. Color flow and real-time ultrasound of the right breast 9 o'clock region were performed. Leal scale images of the real-time examination were reviewed. There is a benign 8 mm lymph node in the right breast at 9 o'clock posterior depth. This normal lymph node displays fatty hilum. Color flow imaging demonstrates that there is internal vascularity. IMPRESSION: BENIGN FINDING There is no sonographic evidence of malignancy. The 8 mm lymph node in the right breast is benign. A 1 year screening mammogram is recommended. Dmitri Lindsey M.D. kk/:10/07/2022 14:37:43 Multiple national specialty organizations have released breast cancer screening guidelines for women at average risk for developing breast cancer - guidelines that are based on both evidence and opinion, yet differ on when to start and how often to screen for breast cancer. With representation from Breast Imaging, Internal Medicine, Women's Health, Family Medicine, and Medical/Surgical Oncology, the [facility] has carefully reviewed the data and reached the following consensus: 1) All women should engage in shared decision-making with their providers to decide when to start and how often to screen; 2) All women should have the opportunity to start screening mammography at age 40; 3) For women ages 45-55, we recommend annual screening mammograms; 4) For women ages 55 and over, we support both the transition from an annual to a biennial interval if this aligns more with patient's values and preferences, or continuation with annual screening; 5) All women should discuss with their providers when to stop screening mammograms. Head Refrigerating Engineer(s): Viola Bliss)(M), [facility]; [facility] letter sent: Normal over 40 OVERALL STUDY BIRADS: 2 Benign finding Adult High School Instructor: Tena Transcribe Date/Time: Oct 07 2022 1:43P Dictated by : DMITRI LINDSEY MD This ex (more content not included)... Normal [facility] DAMARIS DIAG W BERLIN RIGHTon 09-12 [facility] DAMARIS DIAG W BERLIN RTon 023 [facility] DIAG W BELRIN RT * * *Final Report* * * DATE OF EXAM: Oct 07 2022 2:23PM [facility] [id number] - [facility] DIAG W BERLIN RT / PROCEDURE REASON: Breast neoplasm, Tis (DCIS), right * * * * Physician Interpretation * * * * #[id number] - [facility] DIAG W BERLIN RT #[id number] - [facility] US BREAST LTD RT UNILATERAL RIGHT DIGITAL DIAGNOSTIC MAMMOGRAM TOMOSYNTHESIS WITH CAD: 10/07/2022 HISTORY: Breast Neoplasm, Tis (Dcis), Right/ Six month follow up mammogram. Patient reports no breast problems. Breast Neoplasm, Tis (Dcis), Right/ Followup abnormal mammogram. RESULT: TECHNIQUE: The study was acquired using full field digital technology and interpreted from soft copy. Digital Breast Tomosynthesis (DBT) images were obtained and used to assist in the interpretation of this examination. Current study was also evaluated with a Computer Aided Detection (CAD). Comparison is made to exams dated: 03/26/2022 mammogram, 08/22/2021 mammogram, 08/15/2021 mammogram, 05/29/2021 mammogram, 04/24/2021 mammogram, and 04/21/2020 mammogram - [facility]. There are scattered fibroglandular elements in right breast. There are post-surgical changes of the right breast. There are benign calcifications in the left breast. There is an irregular mass with a macrolobulated margin in the right breast at 11 o'clock middle depth. No other significant masses or calcifications are seen in the breast. IMPRESSION: BENIGN FINDING The irregular mass in the right breast resembles a lymph node and is benign. There is no mammographic evidence of malignancy. A 1 year screening mammogram is recommended. LIMITED ULTRASOUND OF RIGHT BREAST: 10/07/2022 RESULT: Comparison is made to exams dated: 03/26/2022 mammogram, 08/22/2021 mammogram, 08/15/2021 mammogram, 05/29/2021 mammogram, 04/24/2021 mammogram, and 04/21/2020 mammogram - [facility]. Color flow and real-time ultrasound of the right breast 9 o'clock region were performed. Leal scale images of the real-time examination were reviewed. There is a benign 8 mm lymph node in the right breast at 9 o'clock posterior depth. This normal lymph node displays fatty hilum. Color flow imaging demonstrates that there is internal vascularity. IMPRESSION: BENIGN FINDING There is no sonographic evidence of malignancy. The 8 mm lymph node in the right breast is benign. A 1 year screening mammogram is recommended. Dmitri Lindsey M.D. kk/:10/07/2022 14:37:43 Multiple national specialty organizations have released breast cancer screening guidelines for women at average risk for developing breast cancer - guidelines that are based on both evidence and opinion, yet differ on when to start and how often to screen for breast cancer. With representation from Breast Imaging, Internal Medicine, Women's Health, Family Medicine, and Medical/Surgical Oncology, the [facility] has carefully reviewed the data and reached the following consensus: 1) All women should engage in shared decision-making with their providers to decide when to start and how often to screen; 2) All women should have the opportunity to start screening mammography at age 40; 3) For women ages 45-55, we recommend annual screening mammograms; 4) For women ages 55 and over, we support both the transition from an annual to a biennial interval if this aligns more with patient's values and preferences, or continuation with annual screening; 5) All women should discuss with their providers when to stop screening mammograms. Head Refrigerating Engineer(s): Se Bliss(R)(M), [facility]; [facility] letter sent: Normal over 40 OVERALL STUDY BIRADS: 2 Benign finding Adult High School Instructor: Tena Transcricharlee Date/Time: Oct 07 2022 1:43P Dictated by : DMITRI LINDSEY MD This examination was interpreted and the report reviewed and electronically signed by: DMITRI LINDSEY MD on Oct 07 2022 2:37PM EST [id number] Normal [facility] [employer] BREAST LTD RTon 10-07 [facility] [employer] BREAST LTD RT * * *Final Report* * * DATE OF EXAM: Oct 07 2022 1:43PM [facility] [id number] - [facility] [employer] BREAST [employer] RT / PROCEDURE REASON: Breast neoplasm, Tis (DCIS), right * * * * Physician Interpretation * * * * #[id number] - [facility] DIAG W BERLIN RT #[id number] - [facility] [employer] BREAST LTD RT UNILATERAL RIGHT DIGITAL DIAGNOSTIC MAMMOGRAM TOMOSYNTHESIS WITH CAD: 10/07/2022 HISTORY: Breast Neoplasm, Tis (Dcis), Right/ Six month follow up mammogram. Patient reports no breast problems. Breast Neoplasm, Tis (Dcis), Right/ Followup abnormal mammogram. RESULT: TECHNIQUE: The study was acquired using full field digital technology and interpreted from soft copy. Digital Breast Tomosynthesis (DBT) images were obtained and used to assist in the interpretation of this examination. Current study was also evaluated with a Computer Aided Detection (CAD). Comparison is made to exams dated: 03/26/2022 mammogram, 08/22/2021 mammogram, 08/15/2021 mammogram, 05/29/2021 mammogram, 04/24/2021 mammogram, and 04/21/2020 mammogram - [facility]. There are scattered fibroglandular elements in right breast. There are post-surgical changes of the right breast. There are benign calcifications in the left breast. There is an irregular mass with a macrolobulated margin in the right breast at 11 o'clock middle depth. No other significant masses or calcifications are seen in the breast. IMPRESSION: BENIGN FINDING The irregular mass in the right breast resembles a lymph node and is benign. There is no mammographic evidence of malignancy. A 1 year screening mammogram is recommended. LIMITED ULTRASOUND OF RIGHT BREAST: 10/07/2022 RESULT: Comparison is made to exams dated: 03/26/2022 mammogram, 08/22/2021 mammogram, 08/15/2021 mammogram, 05/29/2021 mammogram, 04/24/2021 mammogram, and 04/21/2020 mammogram - [facility]. Color flow and real-time ultrasound of the right breast 9 o'clock region were performed. Leal scale images of the real-time examination were reviewed. There is a benign 8 mm lymph node in the right breast at 9 o'clock posterior depth. This normal lymph node displays fatty hilum. Color flow imaging demonstrates that there is internal vascularity. IMPRESSION: BENIGN FINDING There is no sonographic evidence of malignancy. The 8 mm lymph node in the right breast is benign. A 1 year screening mammogram is recommended. Dmitri Lindsey M.D. kk/:10/07/2022 14:37:43 Multiple national specialty organizations have released breast cancer screening guidelines for women at average risk for developing breast cancer - guidelines that are based on both evidence and opinion, yet differ on when to start and how often to screen for breast cancer. With representation from Breast Imaging, Internal Medicine, Women's Health, Family Medicine, and Medical/Surgical Oncology, the [facility] has carefully reviewed the data and reached the following consensus: 1) All women should engage in shared decision-making with their providers to decide when to start and how often to screen; 2) All women should have the opportunity to start screening mammography at age 40; 3) For women ages 45-55, we recommend annual screening mammograms; 4) For women ages 55 and over, we support both the transition from an annual to a biennial interval if this aligns more with patient's values and preferences, or continuation with annual screening; 5) All women should discuss with their providers when to stop screening mammograms. Head Refrigerating Engineer(s): Se Bliss(Jeronimo)(M), [facility]; [facility] letter sent: Normal over 40 OVERALL STUDY BIRADS: 2 Benign finding Adult High School Instructor: Tena Transcribe Date/Time: Oct 07 2022 1:43P Dictated by : DMITRI LINDSEY MD This examination was interpreted and the report reviewed and electronically signed by: DMITRI LINDSEY MD on Oct 07 2022 2:37PM EST [id number] Normal [facility] US BREAST LTD RIGHTon 2022 [facility] UA DIP, URINE (POC)on 2022 BILIRUBIN UA (POCT) Negative Negative [facility] CLARITY UA (POCT) Clear [facility] COLOR UA (POCT) Yellow [facility] GLUCOSE UA (POCT) Negative Negative mg/dL [facility] HEMOGLOBIN/BLOOD UA (POCT) Trace-intact Abnormal Negative [facility] KETONE UA (POCT) Negative Negative mg/dL [facility] LEUKOCYTES UA (POCT) Negative Negative [facility] NITRITE UA (POCT) Negative Negative [facility] PH UA (POCT) 5.5 4.5 - 8.0 [facility] Protein Ql (U) Negative Negative mg/dL [facility] SPECIFIC GRAVITY UA (POCT) 1.010 1.005 - 1.030 [facility] UROBILINOGEN UA (POCT) 0.2 E.U./dL Normal E.U./dL [facility] DAMARIS DIAGNOSTIC BILATon 03-26 [facility] SPIROMETRY BASELINE ONLYon 0 10-11-2021 [id number]% PRE (L/S) 0.59 L/S [facility] FEV1 PRE (L) 1.37 L [facility] FEV1/FVC PRE (%) 0.62 % [facility] FVC PRE (L) 2.22 L [facility] PEF PRE (L/S) 4.34 L/S [facility] XR SHLDR >/=3V AP/ADAM AP/OTH R LTon 09-21-2021 XR SHLDR >/=3V AP/ADAM AP/OTHR LT * * *Final Report* * * DATE OF EXAM: Sep 21 2021 11:30AM BRIAN [id number] - XR SHLDR >/=3V AP/ADAM AP/OTHR LT / PROCEDURE REASON: [id number] * * * * Physician Interpretation * * * * Left shoulder radiographs HISTORY: 86 years old Clinical information: Pain LEFT SHOULDER PAIN TECHNIQUE: Images: XR SHLDR >/=3V AP/ADAM AP/OTHR LT Comparison: 07/26/2019. RESULT: Findings: Diffuse osteopenia. 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 Narrowing of the acromioclavicular joint with associated subjacent osteophytes. No fracture or dislocation. No soft tissue abnormality identified. IMPRESSION: Glenohumeral and acromioclavicular osteoarthrosis. Adult High School Instructor: ANDRZEJ Transcribe Date/Time: Sep 21 2021 12:39P Dictated by : SANCHO ANDERSEN MD This examination was interpreted and the report reviewed and electronically signed by: SANCHO ANDERSEN MD on Sep 21 2021 12:40PM EST [id number] [facility] XR Wrist - left PA and Later al and Obliqueon 04-19-2021 IMPRESSION: No fract ure or dislocation Adult High School Instructor: [facility] Transcribe Date/Time: Apr 19 2021 9:59A Dictated by : ANA ADDISON MD This examination was interpreted and the report reviewed and electronically signed by: ANA ADDISON MD on Apr 19 2021 10:00AM EST DIVISION OF RADIOLOGY * * *Final Report* * * DATE OF EXAM: Apr 19 2021 9:58AM WOX 5270 - XR WRIST 3V PA/LAT/OBL LT / PROCEDURE REASON: Acute wrist pain, left * * * * Physician Interpretation * * * * HISTORY: Acute wrist pain, left Radial sided left wrist pain following a fall last night TECHNIQUE: 3 views COMPARISON: None RESULT: No fracture or dislocation. Calcification of the triangular fibrocartilage. 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 DIVISION OF RADIOLOGY Provider, Liss Mirtha thao [place] - 04/19/2021 * * *Final Report* * * DATE OF EXAM: Apr 19 2021 9:58AM WOX 5270 - XR WRIST 3V PA/LAT/OBL LT / PROCEDURE REASON: Acute wrist pain, left * * * * Physician Interpretation * * * * HISTORY: Acute wrist pain, left Radial sided left wrist pain following a fall last night TECHNIQUE: 3 views COMPARISON: None RESULT: No fracture or dislocation. Calcification of the triangular fibrocartilage. 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 IMPRESSION IMPRESSION: No fracture or dislocation Adult High School Instructor: ANDRZEJ Transcribe Date/Time: Apr 19 2021 9:59A Dictated by : ANA ADDISON MD This examination was interpreted and the report reviewed and electronically signed by: ANA ADDISON MD on Apr 19 2021 10:00AM EST [facility] Radiology Study observation (narrative) [facility] XR Wrist - left PA and Later al and ObliqueOrdered By: [facility] Provider on 04-19-2021 [facility] Surgical Pathologyon 021 Surgical Pathology [id number] [facility] DEPART[facility] PATHOLOGY AND LABORATORY MEDICINE [address] [place], [place] [phone] FINAL SURGICAL PATHOLOGY REPORT ___ NAME: MARSHALL WU : 1935 85 Y F BILLING NO.: [id number] LOCATION: 1SPO PROCEDURE 10/25/2020 DATE: SURGEON: LORA SANTIAGO MD RECEIVED 10/26/2020 DATE: ATTENDING: LORA SANTIAGO MD REPORT DATE: 10/30/2020 COPIES TO: ___ DIAGNOSIS: A. 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 B. SKIN, LEFT FOREARM DISTAL, SHAVE - AT LEAST SQUAMOUS CELL CARCINOMA IN SITU Comment: The squamous cell carcinoma in situ extends to the deep aspect of the specimen; therefore, an underlying invasive component cannot be entirely excluded. C. SKIN, LEFT MEDIAL CHEEK, SHAVE - SUGGESTIVE OF SUPERFICIAL PORTION OF RUPTURED ACUTE SUPPURATIVE FOLLICULITIS WITH FOCAL KERATINOCYTIC ATYPIA, FAVOR REACTIVE Comment: Multiple deeper levels were reviewed. If the patient's symptoms persist or worsen a repeat deeper biopsy is recommended. JAW/JAW Signature> SANCHO CEJA M.D. ___ CLINICAL INFORMATION: Neoplasm of uncertain behavior of skin. A-C: Rule out squamous cell carcinoma vs. basal cell carcinoma SPECIMEN: (A) SKIN (B) SKIN (C) SKIN ___ GROSS DESCRIPTION: A. Received in formalin labeled left forearm proximal is a thin segment of leal-adamson skin measuring 0.5 x 0.4 cm. The specimen is bisected and entirely submitted in a single cassette. B. Received in formalin labeled left forearm distal is a thin segment of leal-adamson skin measuring 0.4 x 0.2 cm. The specimen is entirely submitted in a single cassette. C. Received in formalin labeled left medial cheek is a thin segment of leal-adamson skin 0.4 x 0.3 cm. The specimen is bisected and entirely submitted in a single cassette. JCK/MATTI Disclaimer: The following statement applies to all immunohistochemistry, in situ hybridization, molecular studies, and immunofluorescence testing. The use of one or more reagents in the above tests is regulated as an analyte specific reagent (ASR). These tests were developed and their performance characteristics determined by the clinical laboratories of [facility]. They have not been cleared by the US Food and Drug Administration (FDA). The FDA has determined that such clearance or approval is not necessary. All the above immunostains were performed on paraffin embedded tissue. Appropriate positive and negative controls (where applicable) were run in parallel with the patient's specimen; these controls showed expected staining pattern, with acceptable intensity of staining. Immunohistochemical assays have not been validated on decalcified tissues. Results should be interpreted with caution given the raised possibility of false negativity on decalcified specimens. Professional Performing Location: [place] [address]. DEPARTMENT OF PATHOLOGY AND LABORATORY MEDICINE [place], [place] [address] [email or web address] [id number] o Normal [facility] Large Joint Arthro/Inj: L gl enohumeral [facility] Vital Signs Date Time Vital Sign Value Performing Clinician Fabby mora 01-25-2025 12:46-0400 Body mass index (BMI) [Ratio] 26.93 kg/m2 Naida Brambila APRN.STUDY LEAD Work Phone: [facility] 01-25-2025 12:46-0400 Body weight 68.95 kg Nadia Brambila APRN.STUDY LEAD Work Phone: [facility] 01-25-2025 12:46-0400 Diastolic blood pressure 64 mm[Hg] Nadia Brambila APRN.CNP Work Phone: [facility] 01-25-2025 12:46-0400 Heart rate 83 /min Nadia Brambila APRN.STUDY LEAD Work Phone: [facility] 01-25-2025 12:46-0400 SaO2% (BldA) [Mass fraction] 98 % Nadia Rogerjimbo [employer].STUDY LEAD Work Phone: [facility] 01-25-2025 12:46-0400 Systolic blood pressure 138 mm[Hg] Nadia Brambila [employer].STUDY LEAD Work Phone: [facility] 01-21-2025 10:24-0400 Body mass index (BMI) [Ratio] 26.75 kg/m2 Bang Plummer Jr., MD Work Phone: [facility] 01-21-2025 10:24-0400 Body weight 68.49 kg Bang Plummer Jr., MD Work Phone: [facility] 01-21-2025 10:24-0400 Diastolic blood pressure 74 mm[Hg] Bang Plummer Jr., MD Work Phone: [facility] 01-21-2025 10:24-0400 Heart rate 88 /min Bang Plummer Jr., MD Work Phone: [facility] 01-21-2025 10:24-0400 Respiratory rate 16 /min Bang Plummer Jr., MD Work Phone: [facility] 01-21-2025 10:24-0400 SaO2% (BldA) [Mass fraction] 96 % Bang Plummer Jr., MD Work Phone: [facility] 01-21-2025 10:24-0400 Systolic blood pressure 138 mm[Hg] Bang Plummer Jr., MD Work Phone: [facility] 01-19-2025 11:04-0400 Body temperature 97.81 [degF] Lora Santiago MD Work Phone: [facility] 01-19-2025 11:04-0400 Diastolic blood pressure 75 mm[Hg] Lora Santiago MD Work Phone: [facility] 01-19-2025 11:04-0400 Heart rate 76 /min Lora Santiago MD Work Phone: [facility] 01-19-2025 11:04-0400 Systolic blood pressure 137 mm[Hg] Lora Santiago MD Work Phone: [facility] 01-17-2025 09:08-0400 Body mass index (BMI) [Ratio] 27.1 kg/m2 Nadia Suppan [employer].STUDY LEAD Work Phone: [facility] 01-17-2025 09:08-0400 Body weight 69.4 kg Nadia Suppan [employer] MA[employer].STUDY LEAD Work Phone: [facility] 01-17-2025 09:08-0400 Diastolic blood pressure 64 mm[Hg] Ndaia Suppan [employer] UP MA[employer].STUDY LEAD Work Phone: [facility] 01-17-2025 09:08-0400 Heart rate 85 /min Nadia Suppan [employer] UP MA[employer].STUDY LEAD Work Phone: [facility] 01-17-2025 09:08-0400 SaO2% (BldA) [Mass fraction] 97 % Nadia Suppan [employer] UP MA[employer]ER.STUDY LEAD Work Phone: [facility] 01-17-2025 09:08-0400 Systolic blood pressure 138 mm[Hg] Nadia Suppan [employer] UP MA[employer].STUDY LEAD Work Phone: [facility] 12-30-2024 11:46-0400 Body mass index (BMI) [Ratio] 26.93 kg/m2 Angelika Chavez MD Work Phone: [facility] 12-30-2024 11:46-0400 Body weight 68.95 kg Angelika Chavez MD Work Phone: [facility] 12-30-2024 11:46-0400 Diastolic blood pressure 62 mm[Hg] Angelika Chavez MD Work Phone: [facility] 12-30-2024 11:46-0400 Heart rate 86 /min Angelika Chavez MD Work Phone: [facility] 12-30-2024 11:46-0400 Respiratory rate 17 /min Angelika Chavez MD Work Phone: [facility] 12-30-2024 11:46-0400 SaO2% (BldA) [Mass fraction] 97 % Angelika Chavez MD Work Phone: [facility] 12-30-2024 11:46-0400 Systolic blood pressure 130 mm[Hg] Angelkia Chavez MD Work Phone: [facility] 11-24-2024 10:17-0400 Body mass index (BMI) [Ratio] 27.69 kg/m2 Larry Burdick MD Work Phone: [facility] 11-24-2024 10:17-0400 Body weight 70.9 kg Larry Burdick MD Work Phone: [facility] 11-24-2024 10:17-0400 Heart rate 82 /min Larry Burdick MD Work Phone: [facility] 11-24-2024 10:17-0400 SaO2% (BldA) [Mass fraction] 96 % Larry Burdick MD Work Phone: [facility] 09-21-2024 14:07-0400 Body mass index (BMI) [Ratio] 27.1 kg/m2 Nadia Suppan M[employer] UP MA[employer]ER.STUDY LEAD Work Phone: [facility] 09-21-2024 14:07-0400 Body temperature 97.7 [degF] Nadia Suppan [employer] UP MAKER.STUDY LEAD Work Phone: [facility] 09-21-2024 14:07-0400 Body weight 69.4 kg Nadia Suppan M[employer] UP MAKER.STUDY LEAD Work Phone: [facility] 09-21-2024 14:07-0400 Diastolic blood pressure 72 mm[Hg] Nadia Suppan [employer] UP MAKER.STUDY LEAD Work Phone: [facility] 09-21-2024 14:07-0400 Heart rate 62 /min Nadia Suppan [employer] UP MA[employer]ER.STUDY LEAD Work Phone: [facility] 09-21-2024 14:07-0400 SaO2% (BldA) [Mass fraction] 92 % Nadia Suppan [employer] UP MAKER.STUDY LEAD Work Phone: [facility] 09-21-2024 14:07-0400 Systolic blood pressure 130 mm[Hg] Nadia Suppan M[employer] UP MAKER.STUDY LEAD Work Phone: [facility] 07-26-2024 11:46-0500 Diastolic blood pressure 70 mm[Hg] Nadia Suppan [employer] UP MAKER.STUDY LEAD Work Phone: [facility] 07-26-2024 11:46-0500 Systolic blood pressure 140 mm[Hg] Nadia Suppan [employer] UP MAKER.STUDY LEAD Work Phone: [facility] 07-26-2024 11:29-0500 Body mass index (BMI) [Ratio] 27.28 kg/m2 Nadia Suppan [employer] UP MAKER.STUDY LEAD Work Phone: [facility] 07-26-2024 11:29-0500 Body temperature 97.59 [degF] Nadia Suppan M[employer] UP MAKER.STUDY LEAD Work Phone: [facility] 07-26-2024 11:29-0500 Body weight 69.85 kg Nadia Suppan M[employer] UP MAKER.STUDY LEAD Work Phone: [facility] 07-26-2024 11:29-0500 Heart rate 76 /min Nadia Suppan M[employer] UP MAKER.STUDY LEAD Work Phone: [facility] 07-26-2024 11:29-0500 Respiratory rate 16 /min Nadia Suppan M[employer] UP MAKER.STUDY LEAD Work Phone: [facility] 07-26-2024 11:29-0500 SaO2% (BldA) [Mass fraction] 97 % Nadia Suppan M[employer] UP MAKER.STUDY LEAD Work Phone: [facility] 07-16-2024 10:18-0500 Body mass index (BMI) [Ratio] 26.93 kg/m2 Bang Plummer Jr., MD Work Phone: [facility] 07-16-2024 10:18-0500 Body weight 68.95 kg Bang Plummer Jr., MD Work Phone: [facility] 07-16-2024 10:18-0500 Diastolic blood pressure 77 mm[Hg] Bang Plummer Jr., MD Work Phone: [facility] 07-16-2024 10:18-0500 Heart rate 102 /min Bang Plummer Jr., MD Work Phone: [facility] 07-16-2024 10:18-0500 SaO2% (BldA) [Mass fraction] 98 % Bang Plummer Jr., MD Work Phone: [facility] 07-16-2024 10:18-0500 Systolic blood pressure 134 mm[Hg] Bang Plummer Jr., MD Work Phone: [facility] 06-23-2024 10:52-0500 Body height 160 cm Pulm Wstr Work Phone: [facility] 06-23-2024 10:52-0500 Body mass index (BMI) [Ratio] 26.93 kg/m2 Pulm Wstr Work Phone: [facility] 06-23-2024 10:52-0500 Body weight 68.95 kg Pulm Wstr Work Phone: [facility] 06-23-2024 10:52-0500 Heart rate 85 /min Pulm Wstr Work Phone: [facility] 06-23-2024 10:52-0500 Respiratory rate 16 /min Pulm Wstr Work Phone: [facility] 06-23-2024 10:52-0500 SaO2% (BldA) [Mass fraction] 96 % Pulm Wstr Work Phone: [facility] 06-23-2024 10:46-0500 Body height 160 cm Kamillejordyn Praterone PA-C Work Phone: [facility] 06-23-2024 10:46-0500 Body mass index (BMI) [Ratio] 26.93 kg/m2 Kamille Palak PA-C Work Phone: [facility] 06-23-2024 10:46-0500 Body weight 68.95 kg Kamille Praterone PA-C Work Phone: [facility] 06-23-2024 10:46-0500 Diastolic blood pressure 76 mm[Hg] Kamille Palak PA-C Work Phone: [facility] 06-23-2024 10:46-0500 Heart rate 85 /min Kamille Palak PA-C Work Phone: [facility] 06-23-2024 10:46-0500 Respiratory rate 16 /min Kamille Palak PA-C Work Phone: [facility] 06-23-2024 10:46-0500 SaO2% (BldA) [Mass fraction] 96 % Kamille Palak PA-C Work Phone: [facility] 06-23-2024 10:46-0500 Systolic blood pressure 140 mm[Hg] Kamille Palak PA-C Work Phone: [facility] 04-29-2024 14:37-0400 Body mass index (BMI) [Ratio] 26.83 kg/m2 Andia Suppan M[employer] UP MAKER.STUDY LEAD Work Phone: [facility] 04-29-2024 14:37-0400 Body temperature 97.7 [degF] Nadia Suppan M[employer] MAKER.STUDY LEAD Work Phone: [facility] 04-29-2024 14:37-0400 Body weight 68.7 kg Nadia Suppan M[employer] UP MAKER.STUDY LEAD Work Phone: [facility] 04-29-2024 14:37-0400 Diastolic blood pressure 70 mm[Hg] Nadia Suppan M[employer] UP MAKER.STUDY LEAD Work Phone: [facility] 04-29-2024 14:37-0400 Heart rate 95 /min Nadia Suppan M[employer] UP MAKER.STUDY LEAD Work Phone: [facility] 04-29-2024 14:37-0400 SaO2% (BldA) [Mass fraction] 96 % Nadia Suppan M[employer] UP MAKER.STUDY LEAD Work Phone: [facility] 04-29-2024 14:37-0400 Systolic blood pressure 128 mm[Hg] Nadia Suppan M[employer] UP MAKER.STUDY LEAD Work Phone: [facility] 04-28-2024 15:48-0400 Body mass index (BMI) [Ratio] 26.95 kg/m2 Krislyn Aberegg PA Work Phone: [facility] 04-28-2024 15:48-0400 Body temperature 97.3 [degF] Krislyn Aberegg PA Work Phone: [facility] 04-28-2024 15:48-0400 Body weight 69 kg Krislyn Aberegg PA Work Phone: [facility] 04-28-2024 15:48-0400 Diastolic blood pressure 84 mm[Hg] Krislyn Aberegg PA Work Phone: [facility] 04-28-2024 15:48-0400 Heart rate 95 /min Krislyn Aberegg PA Work Phone: [facility] 04-28-2024 15:48-0400 Respiratory rate 18 /min Krislyn Aberegg PA Work Phone: [facility] 04-28-2024 15:48-0400 SaO2% (BldA) [Mass fraction] 98 % Krislyn Aberegg PA Work Phone: [facility] 04-28-2024 15:48-0400 Systolic blood pressure 126 mm[Hg] Krislyn Aberegg PA Work Phone: [facility] 04-07-2024 10:05-0400 Diastolic blood pressure 72 mm[Hg] Gema Haagen M[employer] UP MAKER.STUDY LEAD Work Phone: [facility] 04-07-2024 10:05-0400 Heart rate 95 /min Gema Haagen [employer] UP MAKER.STUDY LEAD Work Phone: [facility] 04-07-2024 10:05-0400 Respiratory rate 16 /min Gema Haagen [employer] UP MAKER.STUDY LEAD Work Phone: [facility] 04-07-2024 10:05-0400 SaO2% (BldA) [Mass fraction] 95 % Gema Haagen M[employer] UP MAKER.STUDY LEAD Work Phone: [facility] 04-07-2024 10:05-0400 Systolic blood pressure 130 mm[Hg] Gema Haagen M[employer] UP MAKER.STUDY LEAD Work Phone: [facility] 03-29-2024 11:27-0400 Body mass index (BMI) [Ratio] 26.39 kg/m2 Ke Juanita [employer] UP MAKER.STUDY LEAD Work Phone: [facility] 03-29-2024 11:27-0400 Body weight 67.59 kg Ke Juanita M[employer] UP MAKER.STUDY LEAD Work Phone: [facility] 03-29-2024 11:27-0400 Diastolic blood pressure 77 mm[Hg] Ke Juanita M[employer] UP MAKER.STUDY LEAD Work Phone: [facility] 03-29-2024 11:27-0400 Heart rate 83 /min Ke Juanita M[employer] UP MAKER.STUDY LEAD Work Phone: [facility] 03-29-2024 11:27-0400 Respiratory rate 16 /min Ke Juanita M[employer] UP MAKER.STUDY LEAD Work Phone: [facility] 03-29-2024 11:27-0400 SaO2% (BldA) [Mass fraction] 96 % Ke Juanita [employer] UP MAKER.STUDY LEAD Work Phone: [facility] 03-29-2024 11:27-0400 Systolic blood pressure 133 mm[Hg] Ke Juanita M[employer] UP MAKER.STUDY LEAD Work Phone: [facility] 03-10-2024 16:35-0400 Body mass index (BMI) [Ratio] 26.4 kg/m2 Suhas Rivera [employer] UP MAKER.STUDY LEAD Work Phone: [facility] 03-10-2024 16:35-0400 Body temperature 100.9 [degF] Suhas Rivera M[employer] UP MAKER.STUDY LEAD Work Phone: [facility] 03-10-2024 16:35-0400 Body weight 67.6 kg Suhas Rivera M[employer] UP MAKER.STUDY LEAD Work Phone: [facility] 03-10-2024 16:35-0400 Diastolic blood pressure 78 mm[Hg] Suhas Adelayasmine M[employer] UP MAKER.STUDY LEAD Work Phone: [facility] 03-10-2024 16:35-0400 Heart rate 94 /min Suhas Marioabhishekyasmine M[employer] UP MAKER.STUDY LEAD Work Phone: [facility] 03-10-2024 16:35-0400 Respiratory rate 21 /min Suhas Marioabhishekyasmine MOCK UP MAKER.STUDY LEAD Work Phone: [facility] 03-10-2024 16:35-0400 SaO2% (BldA) [Mass fraction] 95 % Suhas Martinabhishekyasmine M[employer] UP MAKER.STUDY LEAD Work Phone: [facility] 03-10-2024 16:35-0400 Systolic blood pressure 130 mm[Hg] Suhas Miguel M[employer] UP MAKER.STUDY LEAD Work Phone: [facility] 02-27-2024 08:22-0400 Diastolic blood pressure 80 mm[Hg] Nadia Suppan M[employer] UP MAKER.STUDY LEAD Work Phone: [facility] 02-27-2024 08:22-0400 Systolic blood pressure 146 mm[Hg] Nadia Suppan M[employer] UP MAKER.STUDY LEAD Work Phone: [facility] 02-27-2024 08:04-0400 Body mass index (BMI) [Ratio] 26.93 kg/m2 Nadia Suppan [employer] UP MAKER.STUDY LEAD Work Phone: [facility] 02-27-2024 08:04-0400 Body weight 68.95 kg Nadia Suppan M[employer] UP MAKER.STUDY LEAD Work Phone: [facility] 02-27-2024 08:04-0400 Heart rate 80 /min Nadia Suppan M[employer] UP MAKER.STUDY LEAD Work Phone: [facility] 02-27-2024 08:04-0400 SaO2% (BldA) [Mass fraction] 95 % Nadia Suppan [employer] UP MAKER.STUDY LEAD Work Phone: [facility] 12-24-2023 13:03-0400 Body mass index (BMI) [Ratio] 26.93 kg/m2 Kamille Palak PA-C Work Phone: [facility] 12-24-2023 13:03-0400 Body weight 68.95 kg Kamille Palak PA-C Work Phone: [facility] 12-24-2023 13:03-0400 Diastolic blood pressure 62 mm[Hg] Kamille Palak PA-C Work Phone: [facility] 12-24-2023 13:03-0400 Heart rate 98 /min Kamille Palak PA-C Work Phone: [facility] 12-24-2023 13:03-0400 Respiratory rate 18 /min Kamille Palak PA-C Work Phone: [facility] 12-24-2023 13:03-0400 SaO2% (BldA) [Mass fraction] 97 % Kamille Palak PA-C Work Phone: [facility] 12-24-2023 13:03-0400 Systolic blood pressure 116 mm[Hg] Kamille Palak PA-C Work Phone: [facility] 12-22-2023 11:19-0400 Body mass index (BMI) [Ratio] 27.07 kg/m2 Bang Plummer Jr., MD Work Phone: [facility] 12-22-2023 11:19-0400 Body weight 69.31 kg Bang Plummer Jr., MD Work Phone: [facility] 12-22-2023 11:19-0400 Diastolic blood pressure 70 mm[Hg] Bang Plummer Jr., MD Work Phone: [facility] 12-22-2023 11:19-0400 Heart rate 77 /min Bang Plummer Jr., MD Work Phone: [facility] 12-22-2023 11:19-0400 Respiratory rate 16 /min Bang Plummer Jr., MD Work Phone: [facility] 12-22-2023 11:19-0400 SaO2% (BldA) [Mass fraction] 97 % Bang Plummer Jr., MD Work Phone: [facility] 12-22-2023 11:19-0400 Systolic blood pressure 122 mm[Hg] Bang Plummer Jr., MD Work Phone: [facility] 10-27-2023 09:20-0400 Body weight 71.58 kg NA Montgomery PA-C Work Phone: [facility] 10-27-2023 09:20-0400 Diastolic blood pressure 72 mm[Hg] NA Montgomery PA-C Work Phone: [facility] 10-27-2023 09:20-0400 Heart rate 82 /min NA Montgomery PA-C Work Phone: [facility] 10-27-2023 09:20-0400 Respiratory rate 18 /min NA Montgomery PA-C Work Phone: [facility] 10-27-2023 09:20-0400 Systolic blood pressure 128 mm[Hg] NA Montgomery PA-C Work Phone: [facility] 10-17-2023 11:16-0400 Body temperature 98.2 [degF] Allyson Praisler-Wood M[employer] UP MAKER.STUDY LEAD Work Phone: [facility] 10-17-2023 11:16-0400 Body weight 72.6 kg Allyson Praisler-Wood MOCK UP MAKER.STUDY LEAD Work Phone: [facility] 10-17-2023 11:16-0400 Diastolic blood pressure 72 mm[Hg] Allyson Praisler-Wood MOCK UP MAKER.STUDY LEAD Work Phone: [facility] 10-17-2023 11:16-0400 Heart rate 88 /min Allyson Praisler-Wood M[employer] UP MAKER.STUDY LEAD Work Phone: [facility] 10-17-2023 11:16-0400 Respiratory rate 16 /min Allyson Praisler-Wood M[employer] UP MAKER.STUDY LEAD Work Phone: [facility] 10-17-2023 11:16-0400 SaO2% (BldA) [Mass fraction] 98 % Allyson Santos [employer] UP MAKER.STUDY LEAD Work Phone: [facility] 10-17-2023 11:16-0400 Systolic blood pressure 130 mm[Hg] Allyson Shin-Brayan M[employer] UP MAKER.STUDY LEAD Work Phone: [facility] 09-25-2023 15:20-0400 Body weight 71.22 kg NA Montgomery PA-C Work Phone: [facility] 09-25-2023 15:20-0400 Diastolic blood pressure 80 mm[Hg] NA Montgomery PA-C Work Phone: [facility] 09-25-2023 15:20-0400 Heart rate 95 /min NA Montgomery PA-C Work Phone: [facility] 09-25-2023 15:20-0400 Respiratory rate 16 /min NA Montgomery PA-C Work Phone: [facility] 09-25-2023 15:20-0400 SaO2% (BldA) [Mass fraction] 97 % NA Montgomery PA-C Work Phone: [facility] 09-25-2023 15:20-0400 Systolic blood pressure 138 mm[Hg] NA Montgomery PA-C Work Phone: [facility] 06-02-2023 11:48-0500 Body weight 68.95 kg Angelika Chavez MD Work Phone: [facility] 05-13-2023 11:34-0400 Body temperature 97.81 [degF] Suhas Rivera M[employer] UP MAKER.STUDY LEAD Work Phone: [facility] 05-13-2023 11:34-0400 Body weight 70.31 kg Suhas Rivera M[employer] UP MAKER.STUDY LEAD Work Phone: [facility] 05-13-2023 11:34-0400 Diastolic blood pressure 80 mm[Hg] Suhas Rivera M[employer] UP MAKER.STUDY LEAD Work Phone: [facility] 05-13-2023 11:34-0400 Heart rate 100 /min Suhas Rivera M[employer] UP MAKER.STUDY LEAD Work Phone: [facility] 05-13-2023 11:34-0400 Respiratory rate 22 /min Suhas Rivera M[employer] UP MAKER.STUDY LEAD Work Phone: [facility] 05-13-2023 11:34-0400 SaO2% (BldA) [Mass fraction] 96 % Suhas Rivera M[employer] UP MAKER.STUDY LEAD Work Phone: [facility] 05-13-2023 11:34-0400 Systolic blood pressure 152 mm[Hg] Suhas Chapmanyasmine M[employer] UP MAKER.STUDY LEAD Work Phone: [facility] 04-10-2023 13:50-0400 Body height 160 cm Cleo Cannon MD Work Phone: [facility] 04-10-2023 13:50-0400 Body weight 69.85 kg Cleo Cannon MD Work Phone: [facility] 04-10-2023 13:50-0400 Diastolic blood pressure 84 mm[Hg] Cleo Cannon MD Work Phone: [facility] 04-10-2023 13:50-0400 Heart rate 91 /min Cleo Cannon MD Work Phone: [facility] 04-10-2023 13:50-0400 Systolic blood pressure 149 mm[Hg] Cleo Cannon MD Work Phone: [facility] 04-03-2023 10:08-0400 Body weight 70.13 kg NA Montgomery PA-C Work Phone: [facility] 04-03-2023 10:08-0400 Diastolic blood pressure 66 mm[Hg] NA Montgomery PA-C Work Phone: [facility] 04-03-2023 10:08-0400 Heart rate 86 /min NA Montgomery PA-C Work Phone: [facility] 04-03-2023 10:08-0400 Respiratory rate 16 /min NA Montgomery PA-C Work Phone: [facility] 04-03-2023 10:08-0400 SaO2% (BldA) [Mass fraction] 96 % NA Montgomery PA-C Work Phone: [facility] 04-03-2023 10:08-0400 Systolic blood pressure 136 mm[Hg] NA Montgomery PA-C Work Phone: [facility] 04-01-2023 13:18-0400 Body temperature 97.59 [degF] Lorena Athy PA-C Work Phone: [facility] 04-01-2023 13:18-0400 Body weight 70.22 kg Lorena Athy PA-C Work Phone: [facility] 04-01-2023 13:18-0400 Diastolic blood pressure 72 mm[Hg] Lorena Athy PA-C Work Phone: [facility] 04-01-2023 13:18-0400 Heart rate 96 /min Lorena Athy PA-C Work Phone: [facility] 04-01-2023 13:18-0400 Respiratory rate 22 /min Lorena Athy PA-C Work Phone: [facility] 04-01-2023 13:18-0400 SaO2% (BldA) [Mass fraction] 97 % Lorena Athy PA-C Work Phone: [facility] 04-01-2023 13:18-0400 Systolic blood pressure 162 mm[Hg] Lorena Athy PA-C Work Phone: [facility] 02-10-2023 10:11-0400 Body height 160 cm Christina William MD Work Phone: [facility] 02-10-2023 10:11-0400 Body weight 67.59 kg Christina William MD Work Phone: [facility] 02-10-2023 10:11-0400 Diastolic blood pressure 68 mm[Hg] Christina William MD Work Phone: [facility] 02-10-2023 10:11-0400 Heart rate 88 /min Christina William MD Work Phone: [facility] 02-10-2023 10:11-0400 Systolic blood pressure 166 mm[Hg] Christina William MD Work Phone: [facility] 02-06-2023 10:00-0400 Diastolic blood pressure 64 mm[Hg] Kamille Palak PA-C Work Phone: [facility] 02-06-2023 10:00-0400 Systolic blood pressure 136 mm[Hg] Kamille Palak PA-C Work Phone: [facility] 02-06-2023 09:55-0400 Body height 160 cm Pulm Wstr Work Phone: [facility] 02-06-2023 09:55-0400 Body weight 68.04 kg Pulm Wstr Work Phone: [facility] 02-06-2023 09:55-0400 Heart rate 94 /min Pulm Wstr Work Phone: [facility] 02-06-2023 09:55-0400 Respiratory rate 14 /min Pulm Wstr Work Phone: [facility] 02-06-2023 09:55-0400 SaO2% (BldA) [Mass fraction] 99 % Pulm Wstr Work Phone: [facility] 01-16-2023 15:38-0400 Body weight 68.49 kg NA Montgomery PA-C Work Phone: [facility] 01-16-2023 15:38-0400 Diastolic blood pressure 78 mm[Hg] NA Montgomery PA-C Work Phone: [facility] 01-16-2023 15:38-0400 Heart rate 79 /min NA Montgomery PA-C Work Phone: [facility] 01-16-2023 15:38-0400 Respiratory rate 16 /min NA Montgomery PA-C Work Phone: [facility] 01-16-2023 15:38-0400 SaO2% (BldA) [Mass fraction] 93 % NA Montgomery PA-C Work Phone: [facility] 01-16-2023 15:38-0400 Systolic blood pressure 138 mm[Hg] NA Montgomery PA-C Work Phone: [facility] 09-20-2022 14:35-0500 Body weight 68.04 kg NA Montgomery PA-C Work Phone: [facility] 09-20-2022 14:35-0500 Diastolic blood pressure 72 mm[Hg] NA Montgomery PA-C Work Phone: [facility] 09-20-2022 14:35-0500 Heart rate 83 /min NA Montgomery PA-C Work Phone: [facility] 09-20-2022 14:35-0500 Respiratory rate 16 /min NA Montgomery PA-C Work Phone: [facility] 09-20-2022 14:35-0500 SaO2% (BldA) [Mass fraction] 96 % NA Montgomery PA-C Work Phone: [facility] 09-20-2022 14:35-0500 Systolic blood pressure 144 mm[Hg] NA Montgomery PA-C Work Phone: [facility] 09-18-2022 18:06-0500 Body temperature 97.2 [degF] Gerson Shirley MD Work Phone: [facility] 09-18-2022 18:06-0500 Body weight 67.5 kg Gerson Shirley MD Work Phone: [facility] 09-18-2022 18:06-0500 Diastolic blood pressure 92 mm[Hg] Gerson Shirley MD Work Phone: [facility] 09-18-2022 18:06-0500 Heart rate 79 /min Gerson Shirley MD Work Phone: [facility] 09-18-2022 18:06-0500 Respiratory rate 20 /min Gerson Shirley MD Work Phone: [facility] 09-18-2022 18:06-0500 SaO2% (BldA) [Mass fraction] 96 % Gerson Shirley MD Work Phone: [facility] 09-18-2022 18:06-0500 Systolic blood pressure 180 mm[Hg] Gerson Shirley MD Work Phone: [facility] 08-08-2022 10:42-0500 Body weight 68.04 kg Angelika Chavez MD Work Phone: [facility] 08-08-2022 10:42-0500 Diastolic blood pressure 70 mm[Hg] Angelika Chavez MD Work Phone: [facility] 08-08-2022 10:42-0500 Heart rate 94 /min Angelika Chavez MD Work Phone: [facility] 08-08-2022 10:42-0500 SaO2% (BldA) [Mass fraction] 94 % Angelika Chavez MD Work Phone: [facility] 08-08-2022 10:42-0500 Systolic blood pressure 130 mm[Hg] Angelika Chavez MD Work Phone: [facility] 06-18-2022 14:34-0500 Body height 158.[address] Bang Holland Work Phone: [facility] [facility] 06-18-2022 14:34-0500 Body mass index (BMI) [Ratio] 27 kg/m2 Dr. Bang Holland Work Phone: [facility] 06-18-2022 14:34-0500 Body temperature 98 [degF] Dr. Bang Holland Work Phone: [facility] 06-18-2022 14:34-0500 Body weight 68.[address] Bang Holland Work Phone: [facility] 06-18-2022 14:34-0500 Diastolic blood pressure 60 mm[Hg] Dr. Bang Holland Work Phone: [facility] 06-18-2022 14:34-0500 Heart rate 93 /min Dr. Bang Holland Work Phone: [facility] 06-18-2022 14:34-0500 Respiratory rate 16 /min Dr. Bang Holland Work Phone: [facility] 06-18-2022 14:34-0500 SaO2% (BldA) [Mass fraction] 96 % Dr. Bang Holland Work Phone: [facility] 06-18-2022 14:34-0500 Systolic blood pressure 132 mm[Hg] Dr. Bang Holland Work Phone: [facility] 06-17-2022 10:49-0500 Body temperature 97.11 [degF] NA Montgomery PA-C Work Phone: [facility] 06-17-2022 10:49-0500 Body weight 68.49 kg NA Montgomery PA-C Work Phone: [facility] 06-17-2022 10:49-0500 Diastolic blood pressure 64 mm[Hg] NA Montgomery PA-C Work Phone: [facility] 06-17-2022 10:49-0500 Heart rate 85 /min NA Montgomery PA-C Work Phone: [facility] 06-17-2022 10:49-0500 Respiratory rate 16 /min NA Montgomery PA-C Work Phone: [facility] 06-17-2022 10:49-0500 SaO2% (BldA) [Mass fraction] 98 % NA Montgomery PA-C Work Phone: [facility] 06-17-2022 10:49-0500 Systolic blood pressure 128 mm[Hg] NA Montgomery PA-C Work Phone: [facility] 05-14-2022 10:07-0400 Diastolic blood pressure 68 mm[Hg] Mi Nurse Work Phone: [facility] 05-14-2022 10:07-0400 Heart rate 90 /min Mi Nurse Work Phone: [facility] 05-14-2022 10:07-0400 Systolic blood pressure 156 mm[Hg] Mi Nurse Work Phone: [facility] 04-15-2022 11:03-0400 Body temperature 97.5 [degF] NA Montgomery PA-C Work Phone: [facility] 04-15-2022 11:03-0400 Body weight 68.49 kg NA Montgomery PA-C Work Phone: [facility] 04-15-2022 11:03-0400 Diastolic blood pressure 68 mm[Hg] NA Montgomery PA-C Work Phone: [facility] 04-15-2022 11:03-0400 Heart rate 93 /min NA Montgomery PA-C Work Phone: [facility] 04-15-2022 11:03-0400 Respiratory rate 20 /min NA Montgomery PA-C Work Phone: [facility] 04-15-2022 11:03-0400 SaO2% (BldA) [Mass fraction] 95 % NA Montgomery PA-C Work Phone: [facility] 04-15-2022 11:03-0400 Systolic blood pressure 146 mm[Hg] NA Montgomery PA-C Work Phone: [facility] 12-14-2021 09:32-0400 Body height 160 cm Maximilian Sheets MD Work Phone: [facility] 12-14-2021 09:32-0400 Body weight 68.04 kg Maximilian Sheets MD Work Phone: [facility] 11-05-2021 14:25-0400 Body weight 67.59 kg Cuca Rojas MOCK UP MAKER.STUDY LEAD Work Phone: [facility] 11-05-2021 14:25-0400 Diastolic blood pressure 64 mm[Hg] Cuca Rojas MOCK UP MAKER.STUDY LEAD Work Phone: [facility] 11-05-2021 14:25-0400 Heart rate 98 /min Cuca Rojas MOCK UP MAKER.STUDY LEAD Work Phone: [facility] 11-05-2021 14:25-0400 Respiratory rate 18 /min Cuca Rojas MOCK UP MAKER.STUDY LEAD Work Phone: [facility] 11-05-2021 14:25-0400 SaO2% (BldA) [Mass fraction] 97 % Cuca Rojas MOCK UP MAKER.STUDY LEAD Work Phone: [facility] 11-05-2021 14:25-0400 Systolic blood pressure 138 mm[Hg] Cuca Rojas MOCK UP MAKER.STUDY LEAD Work Phone: [facility] 10-11-2021 14:13-0400 Body height 160 cm Kamille Palak PA-C Work Phone: [facility] 10-11-2021 14:13-0400 Body weight 70.31 kg Kamille Palak PA-C Work Phone: [facility] 10-11-2021 14:13-0400 Diastolic blood pressure 67 mm[Hg] Kamille Palak PA-C Work Phone: [facility] 10-11-2021 14:13-0400 Heart rate 88 /min Kamille Palak PA-C Work Phone: [facility] 10-11-2021 14:13-0400 Respiratory rate 18 /min Kamille Palak PA-C Work Phone: [facility] 10-11-2021 14:13-0400 SaO2% (BldA) [Mass fraction] 97 % Kamille Palak PA-C Work Phone: [facility] 10-11-2021 14:13-0400 Systolic blood pressure 152 mm[Hg] Kamille Palak PA-C Work Phone: [facility] 10-11-2021 14:08-0400 Body height 160 cm Respiratory Wstr Work Phone: [facility] 10-11-2021 14:08-0400 Body weight 70.31 kg Respiratory Wstr Work Phone: [facility] 10-11-2021 14:08-0400 Heart rate 87 /min Respiratory Wstr Work Phone: [facility] 10-11-2021 14:08-0400 Respiratory rate 14 /min Respiratory Wstr Work Phone: [facility] 10-11-2021 14:08-0400 SaO2% (BldA) [Mass fraction] 97 % Respiratory Wstr Work Phone: [facility] 10-08-2021 15:35-0400 Body temperature 98.1 [degF] NA Montgomery PA-C Work Phone: [facility] 10-08-2021 15:35-0400 Body weight 68.95 kg NA Montgomery PA-C Work Phone: [facility] 10-08-2021 15:35-0400 Diastolic blood pressure 72 mm[Hg] NA Montgomery PA-C Work Phone: [facility] 10-08-2021 15:35-0400 Heart rate 88 /min NA Montgomery PA-C Work Phone: [facility] 10-08-2021 15:35-0400 Respiratory rate 18 /min NA Montgomery PA-C Work Phone: [facility] 10-08-2021 15:35-0400 SaO2% (BldA) [Mass fraction] 97 % NA Montgomery PA-C Work Phone: [facility] 10-08-2021 15:35-0400 Systolic blood pressure 136 mm[Hg] NA Montgomery PA-C Work Phone: [facility] Encounters Encounter Date Encounter Type Care Provider Facility Start: 02-04-2025 ambulatory [facility] Facility:[facility] Start: 02-03-2025 ambulatory NADIA RBAMBILA Fac ility:[facility] Start: 02-03-2025 End: 02-03-2025 Subsequent hospital visit by physician [facility] Work Phone: Radiology Comment on above: Multiple thyroid nod ules [E04.2] Start: 01-25-2025 End: 01-25-2025 Office outpatient visit 25 minutes Nadia Brambila M[employer] UP MAKER.STUDY LEAD Work Phone: [facility] [place] Comment on above: Essential hypertensi on, benign (Primary Dx); Chronic obstructive pulmonary disease, unspecified COPD type (HCC); Multiple thyroid nodules; Gastroesophageal reflux disease with esophagitis without hemorrhage; Hyperlipidemia, unspecified hyperlipidemia type; Hyperglycemia; Osteopenia, unspecified location; Overflow incontinence; Hypokalemia; Fatigue, unspecified type Start: 01-25-2025 End: 01-25-2025 ambulatory NADIA A SUPPAN Facility:[facility] Start: 01-21-2025 End: 01-21-2025 Patient encounter procedure Bang Plummer MD Work Phone: Neurology Comment on above: Peripheral polyneuro sita (Primary Dx); Restless leg; History of iron deficiency Start: 01-21-2025 End: 01-21-2025 ambulatory NADIA A SUPPAN Facility:[facility] Start: 01-19-2025 End: 01-19-2025 Office outpatient visit 15 minutes Lora Santiago MD Work Phone: [facility] Dermatology [facility] Comment on above: Neoplasm of uncertai n behavior of skin (Primary Dx); Actinic keratoses; Seborrheic keratosis; History of melanoma; History of atypical nevus; History of nonmelanoma skin cancer Start: 01-19-2025 End: 01-19-2025 [facility] Start: 01-17-2025 End: 01-17-2025 Office outpatient visit 15 minutes Nadia A Suppan M[employer] UP MAKER.STUDY LEAD Work Phone: [facility] [place] Comment on above: Gastroesophageal ref lux disease without esophagitis (Primary Dx); Essential hypertension; Fatigue, unspecified type; Screening for depression; Encounter for screening examination for other mental health and behavioral disorders Start: 01-17-2025 End: 01-17-2025 ambulatory NADIA A SUPPAN Facility:[facility] Start: 01-11-2025 End: 01-14-2025 ambulatory Nadia A Suppan M[employer] UP MAKER.STUDY LEAD Work Phone: Internal Medicine [place] [id number] Start: 12-30-2024 End: 12-30-2024 Patient encounter procedure Angelika Chavez MD Work Phone: Pulmonary Medicine Comment on above: 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 D by GOLD classification (HCC) (Primary Dx); Former cigarette smoker Start: 12-30-2024 End: 12-30-2024 ambulatory ANGELIKA CHAVEZ Facility:[facility] Start: 12-24-2024 End: 12-25-2024 ambulatory Nadia A Suppan MOCK UP MAKER.STUDY LEAD Work Phone: Family [facility] [place] Comment on above: refil Start: 12-23-2024 End: 12-23-2024 ambulatory Larry Burdick MD Work Phone: Pain Management Comment on above: xray Start: 12-11-2024 End: 12-13-2024 Refill Nadia A Suppan M[employer] UP MAKER.STUDY LEAD Work Phone: [facility] [place] Comment on above: Refill Request Start: 11-24-2024 End: 11-24-2024 Patient encounter procedure Larry Burdick MD Work Phone: Pain Management Comment on above: Chronic bilateral lo w back pain without sciatica (Primary Dx); Degeneration of intervertebral disc of lumbar region with discogenic back pain; Idiopathic peripheral neuropathy Start: 11-24-2024 End: 11-24-2024 ambulatory LARRY BURDICK Facility:[facility] Start: 11-22-2024 End: 11-22-2024 ambulatory Nadia A Suppan MOCK UP MAKER.STUDY LEAD Work Phone: Family [facility] [place] Comment on above: back problems Start: 09-21-2024 End: 09-21-2024 ambulatory NADIA A SUPPAN Facility:[facility] Start: 09-21-2024 End: 09-21-2024 Office outpatient visit 15 minutes Nadia A Suppan MOCK UP MAKER.STUDY LEAD Work Phone: [facility] [place] Comment on above: Acute non-recurrent sinusitis, unspecified location (Primary Dx); Cough, unspecified type; Upper back pain; Pure hypercholesterolemia Start: 07-26-2024 End: 07-26-2024 ambulatory NADIA A SUPPAN Facility:[facility] Start: 07-26-2024 End: 07-26-2024 Office outpatient visit 25 minutes Nadia A Suppan MOCK UP MAKER.STUDY LEAD Work Phone: [facility] Comment on above: Essential hypertensi on (Primary Dx); Stage 1 mild COPD by GOLD classification ([facility]); Encounter for immunization; Pure hypercholesterolemia; Gastroesophageal reflux disease without esophagitis; Neoplasm of uncertain behavior of skin of upper arm Start: 07-23-2024 End: 07-23-2024 ambulatory Nadia A Suppan MOCK UP MAKER.STUDY LEAD Work Phone: [facility] Comment on above: reply Start: 07-22-2024 End: 07-23-2024 ambulatory Nadia A Suppan MOCK UP MAKER.STUDY LEAD Work Phone: [facility] Comment on above: Appoinment Start: 07-16-2024 End: 07-16-2024 Patient encounter procedure Bang Plummer MD Work Phone: Neurology Comment on above: Restless leg (Primar y Dx); History of iron deficiency; Peripheral polyneuropathy Start: 07-16-2024 End: 07-16-2024 ambulatory BANG PLUMMER JR Facility:[facility] Start: 07-09-2024 End: 07-09-2024 ambulatory Nadia Rogeran Facility:[facility] Start: 06-24-2024 End: 06-24-2024 ambulatory Nadia A Suppjimbo MOCK UP MAKER.STUDY LEAD Work Phone: [facility] Comment on above: ohioubobcat Start: 06-23-2024 End: 06-23-2024 ambulatory Pulm [facility] Work Phone: PULM [facility] Comment on above: Spirometry Start: 06-23-2024 End: 06-23-2024 Patient encounter procedure [facility] Work Phone: [facility]UL[facility] Comment on above: Stage 1 mild COPD by GOLD classification ([facility]) (Primary Dx); Former smoker Start: 06-22-2024 End: 06-23-2024 ambulatory Nadia A Suppan MOCK UP MAKER.STUDY LEAD Work Phone: [facility] Comment on above: ohioubobcat Start: 06-21-2024 End: 06-21-2024 Refill Nadia Brambila APRN.STUDY LEAD Work Phone: [facility] [place] Comment on above: Refill Request Start: 06-17-2024 End: 06-17-2024 ambulatory Sergei Lauren RN Work Phone: [facility] Comment on above: community monitoring outreach (CDM-Telephonic outreach) Start: 06-16-2024 End: 06-16-2024 ambulatory Sergei Lauren RN Work Phone: [facility] Comment on above: community monitoring outreach (CDM-Telephonic outreach) Start: 05-19-2024 End: 05-19-2024 ambulatory Sergei Lauren RN Work Phone: [facility] Comment on above: community monitoring outreach (CDM-Telephonic outreach) Start: 05-18-2024 End: 05-18-2024 ambulatory Sergei Lauren RN Work Phone: [facility] Comment on above: community monitoring outreach (CDM-Telephonic outreach) Start: 05-17-2024 End: 05-17-2024 Telephone encounter Tee Montgomery PA-C Work Phone: [facility] [place] Comment on above: Appointment Start: 05-15-2024 End: 05-17-2024 Refill Tee Montgomery PA-C Work Phone: [facility] [place] Comment on above: Refill Request Start: 05-12-2024 End: 05-12-2024 Office outpatient visit 25 minutes Lora Santiago MD Work Phone: [facility] Dermatology - [facility] Comment on above: Neoplasm of uncertai n behavior of skin (Primary Dx); Actinic keratoses; Multiple benign melanocytic nevi of both upper extremities, both lower extremities, and trunk; Seborrheic keratosis; History of melanoma; History of nonmelanoma skin cancer; History of atypical nevus Start: 05-12-2024 End: 05-12-2024 ambulatory LORA SANTIAGO [facility] Start: 05-05-2024 End: 05-06-2024 ambulatory Nadia Brambila MOCK UP MAKER.STUDY LEAD Work Phone: [facility] [place] Comment on above: ob Start: 04-29-2024 End: 04-29-2024 Office outpatient visit 15 minutes Nadia Brambila MOCK UP MAKER.STUDY LEAD Work Phone: [facility] [place] Comment on above: Skin tear of left fo rearm without complication, sequela (Primary Dx); Skin tear of right lower leg without complication, subsequent encounter Start: 04-29-2024 End: 04-29-2024 ambulatory Gema Cloeman APRN.STUDY LEAD Work Phone: [facility] [place] Comment on above: ob Start: 04-28-2024 End: 04-28-2024 Subsequent hospital visit by physician Xr [facility] [place] Work Phone: Radiology Comment on above: Acute pain of right knee [M25.561] Start: 04-28-2024 End: 04-28-2024 ambulatory PAMELA MONTGOMERY Facility:[facility] Start: 04-28-2024 End: 04-28-2024 Patient encounter procedure Augie ROSEN Work Phone: [facility] Comment on above: Acute pain of right knee (Primary Dx); Skin tear of left forearm without complication, initial encounter; Skin tear of right lower leg without complication, initial encounter Start: 04-27-2024 End: 04-29-2024 ambulatory Tee Montgomery PA-C Work Phone: [facility] [place] Comment on above: ob Start: 04-20-2024 End: 04-21-2024 ambulatory Sergei Lauren RN Work Phone: [facility] Comment on above: community monitoring outreach (CDM-Telephonic outreach) Refill Request Start: 04-15-2024 End: 04-15-2024 ambulatory Gema Coleman APRN.STUDY LEAD Work Phone: Family [facility] [place] Comment on above: ob Start: 04-14-2024 End: 04-14-2024 ambulatory CLEO CANNON Facility:[facility] Start: 04-14-2024 End: 04-14-2024 Subsequent hospital visit by physician Screen Mammo [facility] Comment on above: Personal history of breast cancer [Z85.3] Start: 04-07-2024 End: 04-07-2024 Office outpatient visit 15 minutes Gema Coleman APRN.STUDY LEAD Work Phone: [facility] [place] Comment on above: Pain of right hip (P rimary Dx) Start: 04-07-2024 End: 04-07-2024 ambulatory GEMA JULIA Facility:[facility] Start: 04-06-2024 End: 04-06-2024 ambulatory Nadia Brambila APRN.STUDY LEAD Work Phone: [facility] Comment on above: ohioubobcat Start: 03-30-2024 End: 03-31-2024 ambulatory Ke Grant APRN.STUDY LEAD Work Phone: Neurology Comment on above: RLS lab results Start: 03-30-2024 End: 03-31-2024 E-mail encounter from caregiver Ke Juanita ROCHA Work Phone: Neurology Start: 03-29-2024 End: 03-29-2024 Patient encounter procedure Ke Grant APRN.STUDY LEAD Work Phone: Neurology Comment on above: RLS (restless legs s yndrome) (Primary Dx); Neuropathy; Abnormal finding of blood chemistry, unspecified Start: 03-29-2024 End: 03-29-2024 ambulatory KE GRANT Facility:[facility] Start: 03-25-2024 End: 03-26-2024 ambulatory Bang Plummer MD Work Phone: Neurology Comment on above: ohioubobcat Start: 03-19-2024 End: 03-19-2024 ambulatory Sergei Lauren RN Work Phone: [facility] Comment on above: community monitoring outreach (CDM-Telephonic outreach) Start: 03-16-2024 End: 03-16-2024 ambulatory Sergei Lauren RN Work Phone: [facility] Comment on above: community monitoring outreach (CDM-Telephonic outreach) Start: 03-11-2024 End: 03-11-2024 Telephone encounter Augie ROSEN Work Phone: [place] [facility] Comment on above: Results Start: 03-10-2024 End: 03-10-2024 ambulatory PAMELA MONTGOMERY Facility:[facility] Start: 03-10-2024 End: 03-10-2024 Office outpatient visit 15 minutes Suhas Rivera MOCK UP MAKER.STUDY LEAD Work Phone: [place] [facility] Comment on above: Viral illness (Prima ry Dx); Acute upper respiratory infection, unspecified Start: 02-27-2024 End: 02-27-2024 ambulatory Nadia Brambila MOCK UP MAKER.STUDY LEAD Work Phone: [facility] Comment on above[facility] Start: 02-27-2024 End: 02-27-2024 Office outpatient visit 15 minutes Nadia Brambila MOCK UP MAKER.STUDY LEAD Work Phone: [facility] Comment on above: Chronic constipation (Primary Dx); Essential hypertension, benign; Essential hypertension; 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); Other emphysema (HCC) Start: 02-25-2024 End: 02-25-2024 ambulatory Tee Montgomery PA-C Work Phone: [facility] Comment on above: [facility] Start: 02-25-2024 End: 02-25-2024 Emergency department patient visit Bang Holland Facility:[facility] Start: 02-25-2024 End: 02-25-2024 Patient encounter procedure Nany Wills MOCK UP MAKER.STUDY LEAD Work Phone: [place] [facility] Comment on above: Shakiness (Primary D x); Elevated blood pressure reading Start: 02-16-2024 ambulatory Sergei Lauren RN Work Phone: [facility] Comment on above: community monitoring outreach (CDM-Telephonic outreach) Start: 01-23-2024 Telephone encounter Bang Plummer MD Work Phone: Neurology Start: 01-19-2024 ambulatory Sergei Lauren RN Work Phone: [facility] Comment on above: community monitoring outreach (CDM-Telephonic outreach) Start: 01-12-2024 ambulatory Bang tom MD Work Phone: Neurology Comment on above: obcat Start: 01-12-2024 Telephone encounter Bang Plummer MD Work Phone: Neurology Comment on above: Results Start: 01-08-2024 ambulatory Tee Silva on PA-C Work Phone: [facility] [place] Comment on above: ob Start: 01-07-2024 ambulatory Tee Silva on PA-C Work Phone: [facility] [place] Comment on above: obcat Start: 12-24-2023 End: 12-24-2023 Patient encounter procedure Kamille Rizo PA-C Work Phone: Pulmonary Medicine Comment on above: 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) (Primary Dx); Former smoker Start: 12-22-2023 End: 12-22-2023 Patient encounter procedure Bang Plummer MD Work Phone: Neurology Comment on above: Neuropathy (Primary Dx); Restless leg; Neuropathy of both feet; History of iron deficiency Start: 12-20-2023 ambulatory Tee Silva on PA-C Work Phone: [facility] [place] Comment on above: obcat Start: 12-12-2023 ambulatory Sergei Lauren RN Work Phone: [facility] Comment on above: community monitoring outreach (CDM-Telephonic outreach) Start: 11-18-2023 End: 11-18-2023 Office outpatient visit 25 minutes Lora Santiago MD Work Phone: [facility] D[facility] Comment on above: Neoplasm of uncertai n behavior of skin (Primary Dx); Actinic keratoses; Multiple benign nevi; Seborrheic keratosis; Solar lentigo; History of melanoma; History of nonmelanoma skin cancer; History of atypical nevus Start: 11-10-2023 ambulatory Sergei Lauren RN Work Phone: [facility] Comment on above: community monitoring outreach (CDM-Telephonic outreach) Start: 10-27-2023 End: 10-27-2023 Patient encounter procedure Tee Montgomery PA-C Work Phone: [facility] [place] Comment on above: Essential hypertensi on, benign (Primary Dx); Skin tear of left elbow without complication, subsequent encounter; Thumb tendonitis; Simple chronic bronchitis (HCC) Start: 10-17-2023 End: 10-17-2023 Subsequent hospital visit by physician Mateus [facility] [place] Work Phone: Radiology Comment on above: Right hand pain [M79 .641] Start: 10-17-2023 End: 10-17-2023 Patient encounter procedure Allyson Santos APRN.CNP Work Phone: [place] [facility] Comment on above: Right hand pain (Queenie cleo Dx) Start: 10-15-2023 ambulatory Tee Silva on PA-C Work Phone: [facility] [place] Comment on above: ohioubobcat Start: 09-30-2023 ambulatory Tee Silva on PA-C Work Phone: [facility] [place] Comment on above: ohioubobcatNew Medic ation Start: 09-25-2023 End: 09-25-2023 Patient encounter procedure Tee Montgomery PA-C Work Phone: [facility] [place] Comment on above: Restless leg (Primar y Dx); Essential hypertension, benign; Neuropathy of both feet; Bilateral leg edema; Shortness of breath; Overflow incontinence; Simple chronic bronchitis (HCC) Start: 09-24-2023 ambulatory Tee Francois Ricardo on PA-C Work Phone: [facility] [place] Comment on above: ohioubobcat Start: 06-02-2023 End: 06-02-2023 Patient encounter procedure Angelika Chavez MD Work Phone: Pulmonary Medicine Comment on above: Upper respiratory tr act infection, unspecified type (Primary Dx); Subacute cough; COPD, mild (HCC) Start: 06-01-2023 ambulatory Angelika Chavez MD Work Phone: Pulmonary Medicine Comment on above: ohioubobcat Start: 05-18-2023 ambulatory Tee Silva on PA-C Work Phone: [facility] [place] Comment on above: ohioubob Start: 05-13-2023 Telephone encounter Suhas otero APRN.STUDY LEAD Work Phone: [place] [facility] Comment on above: Results Start: 05-13-2023 End: 05-13-2023 Subsequent hospital visit by physician [facility] [place] Work Phone: Radiology Comment on above: Suspected COVID-19 v irus infection [Z20.822] Start: 05-13-2023 End: 05-13-2023 Office outpatient visit 25 minutes Suhas Rivera APRN.STUDY LEAD Work Phone: [place] [facility] Comment on above: Suspected COVID-19 v irus infection (Primary Dx); COPD with exacerbation (HCC) Start: 05-12-2023 ambulatory Tee Silva on PA-C Work Phone: [facility] [place] Comment on above: ob Start: 04-22-2023 ambulatory Sergei Lauren RN Work Phone: [facility] Comment on above: community monitoring outreach (CDM-Telephonic outreach) Start: 04-10-2023 End: 04-10-2023 ambulatory Tee MONTGOMERY Facility:[facility] Start: 04-10-2023 End: 04-10-2023 Patient encounter procedure Cleo Cannon MD Work Phone: [facility] Comment on above: Ductal carcinoma in situ (DCIS) of right breast (Primary Dx); S/P lumpectomy, right breast; Personal history of breast cancer; Visit for screening mammogram Start: 04-10-2023 End: 04-10-2023 Subsequent hospital visit by physician Diagnostic Mamm[facility]MO [facility] Start: 04-03-2023 End: 04-03-2023 Patient encounter procedure Tee Silvaon PA-C Work Phone: [facility] Comment on above: 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) Start: 04-01-2023 End: 04-01-2023 Patient encounter procedure Lorena Darby PA-C Work Phone: [facility] Comment on above: Cellulitis of left l ower leg (Primary Dx) Start: 03-31-2023 ambulatory Tee shipley PA-C Work Phone: [facility] Comment on above: o[place]oubobcat Start: 03-19-2023 ambulatory Sergei Lauren RN Work Phone: [employer] Comment on above: community monitoring outreach (CDM-Telephonic outreach) Start: 02-27-2023 ambulatory Christina Stallworth ch, MD Work Phone: General Surgery Comment on above: ohioubobcat Start: 02-24-2023 End: 02-24-2023 Patient encounter procedure Christina William MD Work Phone: General Surgery Comment on above: Multiple thyroid nod ules (Primary Dx) Start: 02-12-2023 ambulatory Sergei Lauren RN Work Phone: [employer] Comment on above: community monitoring outreach (CDM-Telephonic outreach) Start: 02-10-2023 End: 02-10-2023 Patient encounter procedure Christina William MD Work Phone: General Surgery Comment on above: Thyroid nodule great er than or equal to 1.5 cm in diameter incidentally noted on imaging study Start: 02-07-2023 Telephone encounter Christina campoverde MD Work Phone: General Surgery Comment on above: Future Appointment Start: 02-06-2023 End: 02-06-2023 ambulatory Pulm [facility] Work Phone: PULM LAB [facility] Comment on above: Spirometry Start: 02-06-2023 End: 02-06-2023 Patient encounter procedure Pulm [facility] Work Phone: [facility] Comment on above: 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) (Primary Dx); Seasonal allergic rhinitis, unspecified trigger; Gastroesophageal reflux disease, unspecified whether esophagitis present Start: 01-29-2023 Refill Tee Silva on PA-[employer] Work Phone: [facility] Comment on above: Refill Request Start: 01-28-2023 End: 01-28-2023 Office outpatient visit 15 minutes Lora Santiago MD Work Phone: [facility] Comment on above: Skin lesion (Primary Dx); Seborrheic keratosis; Actinic keratoses; History of malignant melanoma of skin Start: 01-16-2023 End: 01-16-2023 Patient encounter procedure Tee Montgomery [employer] Work Phone: [facility] Comment on above: Multiple thyroid nod ules (Primary Dx); Essential hypertension, benign; Mixed hyperlipidemia; Hyperglycemia; Simple chronic bronchitis (HCC); Gastroesophageal reflux disease without esophagitis; Status post reverse arthroplasty of left shoulder; Restless legs Start: 01-05-2023 ambulatory Tee Silva on [employer] Work Phone: [facility] Comment on above: ohioubobcat Start: 11-25-2022 End: 11-25-2022 ambulatory Angel Ernandez PT [facility] Comment on above: Acute midline low ba ck pain without sciatica (Primary Dx) Start: 11-19-2022 ambulatory Allyson orta MA [facility] Comment on above: Population Health Na vigation Outreach ([facility] ) ohioubobcat Start: 11-12-2022 End: 11-12-2022 ambulatory Angel Ernandez PT [facility] Comment on above: Acute midline low ba ck pain without sciatica (Primary Dx) Start: 11-06-2022 End: 11-06-2022 ambulatory Angel Ernandez PT [facility] Comment on above: Acute midline low ba ck pain without sciatica (Primary Dx) Start: 11-04-2022 ambulatory Sergei Lauren RN Work Phone: [employer] Comment on above: community monitoring outreach (CDM-Telephonic outreach) Start: 11-02-2022 ambulatory Tee Silva on PA-C Work Phone: [facility] Comment on above: obcat Start: 10-31-2022 ambulatory Tee Silva on PA-C Work Phone: [facility] Comment on above: ind[place]cat Start: 10-30-2022 ambulatory Tee Silva on PA-C Work Phone: [facility] Comment on above: ohioubobcat Start: 10-07-2022 End: 10-07-2022 ambulatory Sergei Lauren RN Work Phone: [employer] Comment on above: community monitoring outreach (CDM-Telephonic outreach/) Start: 10-07-2022 End: 10-07-2022 Subsequent hospital visit by physician Diagnostic Mammo [facility] Comment on above: Arrived Start: 09-21-2022 Refill Bang Holland MD Work Phone: [facility] Comment on above: Refill Request Start: 09-20-2022 End: 09-20-2022 Patient encounter procedure Tee Montgomery PA-C Work Phone: [facility] Comment on above: Essential hypertensi on, benign (Primary Dx); Mixed hyperlipidemia; Hyperglycemia; Simple chronic bronchitis (HCC); Gastroesophageal reflux disease without esophagitis; Status post reverse arthroplasty of left shoulder; Restless legs; Urinary tract infection without hematuria, site unspecified; Lumbar sprain, initial encounter; Vitamin D deficiency Start: 09-18-2022 End: 09-18-2022 Patient encounter procedure Gerson [place] MD Work Phone: [facility] Comment on above: Skin tear of forearm without complication, right, initial encounter (Primary Dx); Hypertension, essential Start: 09-03-2022 ambulatory Sergei Lauren RN Work Phone: [employer] Comment on above: community monitoring outreach (CDM-Telephonic outreach) Start: 08-08-2022 End: 08-08-2022 Patient encounter procedure Angelika Chavez MD Work Phone: Pulmonary Medicine Comment on above: 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 Bang Holland Work Phone: [facility] Work Phone: Start: 08-05-2022 End: 08-05-[address] Bang Holland Work Phone: [facility]-Physical Therapy Start: 08-02-2022 ambulatory Sergei Lauren RN Work Phone: [employer] Comment on above: community monitoring outreach (CDM-Telephonic outreach) Start: 07-02-2022 ambulatory Sergei Lauren RN Work Phone: [employer] Comment on above: community monitoring outreach (CDM-Telephonic outreach) Start: 06-21-2022 Non-patient / Non-visit Dr. Dejah Holland Work Phone: [facility] Start: 06-21-2022 End: 06-21-[address] Bang Holland Work Phone: [facility] Work Phone: Start: 06-21-2022 End: 06-21-[address] Bang Holland Work Phone: [facility]Cardiovasc[facility] lar Services Start: 06-21-[address] Paras Holland Work Phone: [facility]-Physical Therapy Start: 06-18-2022 End: 06-18-[address] Bang Holland Work Phone: [facility] Start: 06-17-2022 End: 06-17-2022 Patient encounter procedure Tee Montgomery PA-C Work Phone: [facility] [place] Comment on above: Essential hypertensi on, benign (Primary Dx) Start: 05-30-2022 ambulatory Sergei Lauren RN Work Phone: [employer] Comment on above: community monitoring outreach (CDM telephonic outreach) Start: 05-14-2022 Telephone encounter Bang Holland MD Work Phone: [facility] [place] Comment on above: Blood Pressure Check Start: 05-14-2022 End: 05-14-2022 Nursing evaluation of patient and report Mi Nurse Work Phone: [facility] [place] Comment on above: Essential hypertensi on, benign (Primary Dx); Need for influenza vaccination Start: 04-25-2022 ambulatory Calista Vee RN Work Phone: [employer] Comment on above: Community Monitoring Outreach (CDM Telephonic) Start: 04-15-2022 End: 04-15-2022 Patient encounter procedure Tee Montgomery PA-C Work Phone: [facility] [place] Comment on above: Skin tear of left up per arm without complication, sequela (Primary Dx); Gastroesophageal reflux disease without esophagitis; Simple chronic bronchitis (HCC); Essential hypertension, benign; Hyperglycemia; Mixed hyperlipidemia; Status post reverse arthroplasty of left shoulder Start: 04-14-2022 ambulatory Tee DIAZC Work Phone: [facility] Comment on above: o[place]oubobcat Start: 04-04-2022 ambulatory Calista Vee RN Work Phone: [employer] Comment on above: Community Monitoring Outreach (CDM Telephonic) Start: 03-29-2022 Telephone encounter Cleo thomas MD Work Phone: [facility] Comment on above: Discussion Refill Request Start: 03-26-2022 End: 03-26-2022 Subsequent hospital visit by physician Diagnostic Mammo [facility] Comment on above: Ductal carcinoma in situ (DCIS) of right breast [D05.11] Start: 2022 Refill Bang Holland MD Work Phone: [facility] Comment on above: Refill Request Prescription renewal Start: 03-14-2022 ambulatory Calista Vee RN Work Phone: [facility] Start: 03-14-2022 Follow-up encounter Calista Vee RN Work Phone: [employer] Comment on above: Community Monitoring Outreach (CDM Follow Up) Start: 03-12-2022 ambulatory Calista Vee RN Work Phone: [facility] Start: 03-12-2022 Follow-up encounter Calista Vee RN Work Phone: [employer] Comment on above: Community Monitoring Outreach (CDM Telephonic Follow Up) Start: 03-05-2022 Telephone encounter Maximilian Sheets MD Work Phone: Orthopaedics Comment on above: Surgery Cancelled Start: 03-04-2022 Orders Only Maximilian Sheets MD Work Phone: Orthopaedics Comment on above: 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); Chronic left shoulder pain Start: 02-12-2022 ambulatory Tee Silva on PA-C Work Phone: [facility] Comment on above: Handicap parking Start: 01-30-2022 ambulatory Calista Vee RN Work Phone: [facility] Start: 01-30-2022 Follow-up encounter Calista Vee RN Work Phone: [employer] Comment on above: Community Monitoring Outreach (Telephonic Follow Up) Start: 01-29-2022 ambulatory Calista Vee RN Work Phone: [facility] Start: 01-29-2022 Follow-up encounter Calista Vee RN Work Phone: [employer] Comment on above: Community Monitoring Outreach (Telephonic Follow Up) Start: 01-15-2022 ambulatory Calista Vee RN Work Phone: [employer] Comment on above: Community Monitoring Outreach (Telephonic Follow Uo) Start: 01-01-2022 ambulatory Calista Vee RN Work Phone: [facility] Start: 01-01-2022 Follow-up encounter Calista Vee RN Work Phone: [employer] Comment on above: Community Monitoring Outreach (Telephonic Follow Up) Start: 12-31-2021 ambulatory Calista Vee RN Work Phone: [facility] Start: 12-31-2021 Follow-up encounter Calista Vee RN Work Phone: [employer] Comment on above: Community Monitoring Outreach (Telephonic Follow Up) Start: 12-17-2021 ambulatory Calista Vee RN Work Phone: [facility] Start: 12-17-2021 Follow-up encounter Calista Vee RN Work Phone: [employer] Comment on above: Community Monitoring Outreach (Telephonic Follow Up) Start: 12-17-2021 Telephone encounter Annemarie Robertson MD Work Phone: General Surgery Comment on above: Patient Question (br east imaging follow-up) Start: 12-14-2021 End: 12-14-2021 Patient encounter procedure Maximilian Sheets MD Work Phone: Orthopedics Comment on above: 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) Start: 11-20-2021 ambulatory Calista Vee RN Work Phone: [facility] Start: 11-20-2021 Follow-up encounter Calista Vee RN Work Phone: [employer] Comment on above: Community Monitoring Outreach (Telephonic Follow Up) Start: 11-19-2021 ambulatory Calista Vee RN Work Phone: [facility] Start: 11-19-2021 Follow-up encounter Calista Vee RN Work Phone: [employer] Comment on above: Community Monitoring Outreach (Telephonic Follow Up) Start: 11-05-2021 End: 11-05-2021 Patient encounter procedure Cuca Rojas AJ Work Phone: [facility] Comment on above: Viral gastroenteriti s (Primary Dx) Start: 11-05-2021 ambulatory Calista Vee RN [facility] Comment on above: Abdominal Pain Start: 11-05-2021 Follow-up encounter Calista Vee RN [employer] Comment on above: Community Monitoring Outreach (Telephonic Follow Up) Start: 10-23-2021 ambulatory Calista Vee RN 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) Start: 10-11-2021 End: 10-11-2021 ambulatory Respiratory Therapist [facility] Work Phone: Pulmonary Medicine Start: 10-11-2021 End: 10-11-2021 Patient encounter procedure Respiratory Therapist [facility] Work Phone: [facility] Comment on above: 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 D by GOLD classification (HCC) (Primary Dx); Seasonal allergic rhinitis, unspecified trigger Start: 10-08-2021 End: 10-08-2021 Patient encounter procedure Tee Montgomery PA-C Work Phone: [facility] Comment on above: Diarrhea of presumed infectious origin (Primary Dx); Intermittent generalized abdominal pain Start: 04-19-2021 End: 04-19-2021 Subsequent hospital visit by physician Mateus [facility] Work Phone: Radiology Comment on above: Acute wrist pain, le ft [M25.532] Start: 10-25-2020 End: 10-25-2020 Subsequent hospital visit by physician Lora Santiago Work Phone: [facility] Procedures Date Procedure Procedure Detail Performing Clinician Start: 01-19-2025 CRYOTHERAPY SKIN LESION Denise Melendez MA Start: 01-19-2025 End: 01-19-2025 SKIN BIOPSY Denise Melendez MA Start: 01-17-2025 Adult depression scr eening assessment Nadia Brambila MOCK UP MAKER.STUDY LEAD Work Phone: Start: 06-23-2024 Spmtry w/vc expirato ry evette w/wo mxml vol vntj Kamille Rizo PALitaC Work Phone: Start: 05-12-2024 CRYOTHERAPY SKIN LESION Lora Santiago MD Work Phone: Start: 05-12-2024 SKIN BIOPSY Lora patel MD Work Phone: Start: 04-28-2024 Radiologic exam knee complete 4/more views Augie Medrano PA Work Phone: Start: 04-14-2024 Screening digital br east tomosynthesis bi Cleo Cannon MD Work Phone: Start: 11-18-2023 End: 11-18-2023 SKIN BIOPSY Lora Santiago MD Work Phone: Start: 11-18-2023 CRYOTHERAPY SKIN LESION Lora Santiago MD Work Phone: Start: 10-27-2023 Adult depression scr eening assessment Sergei Lauren RN Work Phone: Start: 10-17-2023 Radex hand minimum 3 views Allyson Santos MOCK UP MAKER.STUDY LEAD Work Phone: Start: 05-13-2023 Radiologic exam ches t 2 views Suhas Rivera M[employer] UP MAKER.STUDY LEAD Work Phone: Start: 04-10-2023 Digital breast tomosynthesis bilateral Cleo Cannon MD Work Phone: Start: 02-06-2023 Brncdilat rspse spmt ry pre&post-brncdilat admn Angelika Chavez MD Work Phone: Start: 10-07-2022 Digital breast tomosynthesis unilateral Cleo Cannon MD Work Phone: Start: 10-07-2022 Us breast uni real t rachele with image limited Cleo Cannon MD Work Phone: Start: 09-20-2022 Urnls dip stick/tabl et rgnt auto w/o microscopy M Alessandro [facility] PA-C Work Phone: Start: 05-14-2022 INFLUENZA SEASONAL QUADRIVALENT HIGH DOSE AGE 65+ Gema Coleman APRN.STUDY LEAD Work Phone: Start: 03-26-2022 Diagnostic mammograp hy computer-aided detcj bi Cleo Cannon MD Work Phone: Start: 10-19-2021 Arthrocentesis aspir &/inj major jt/bursa w/o us Italia Acevedo DO Work Phone: Start: 10-11-2021 Spmtry w/vc expirato ry evette w/wo mxml vol vntj Kamille Rizo PA-C Work Phone: Start: 04-19-2021 Radex wrist complete minimum 3 views Gerson Shirley MD Work Phone: Plan of Treatment Date Care Activity Detail Author Start: 04-28-2034 DTaP/Tdap/Td Vaccines (3 - Td or Tdap) DTaP/Tdap/Td Vaccines (3 - Td or Tdap) [facility] Start: 04-28-2034 Urine microalbumin profile DTaP,Tdap,Td Vaccine (3 - Td or Tdap) [facility] Start: 01-26-2028 Diabetes Screening Diabetes Screening [facility] Start: 01-18-2028 Diabetes Screening Diabetes Screening [facility] Start: 01-09-2027 Diabetes Screening Diabetes Screening [facility] Start: 09-26-2026 Diabetes Screening Diabetes Screening [facility] Start: 07-17-2026 Diabetes Screening Diabetes Screening [facility] Start: 02-03-2026 DTaP/Tdap/Td Vaccines (2 - Td or Tdap) DTaP/Tdap/Td Vaccines (2 - Td or Tdap) [facility] Start: 02-03-2026 Urine microalbumin profile [facility] Start: 01-17-2026 Anxiety Screening Anxiety Screening [facility] Start: 01-17-2026 Depression Screening Depression Screening [facility] Start: 11-22-2025 DIABETES SCREEN DIABETES SCREEN [facility] Start: 11-22-2025 Diabetes Screening Diabetes Screening [facility] Start: 07-27-2025 End: 07-27-2025 Patient encounter procedure 07/27/2025 12:00 PM EST Office Visit [facility] [address] [place] [address] Lora Santiago MD [address] [place] [address] [facility] Start: 07-26-2025 Covid-19 Vaccine ( season) Covid-19 Vaccine ( season) [facility] Comment on above: Postponed from 03/14/2024 (Declined at t his time) Start: 07-26-2025 Shingrix Vaccine (1 of 2) Shingrix Vaccine (1 of 2) [facility] Comment on above: Postponed from 1986 (Declined at t his time) Start: 07-25-2025 End: 07-25-2025 Patient encounter procedure Neurology Comment on above: 6 month follow up RLS and neuropathy Medicare Wellness Start: 06-10-2025 End: 06-10-2025 Patient encounter procedure 06/10/2025 11:45 AM EST Office Visit Pulmonary Medicine [address] [place] [id number] Angelika Chavez MD [address] [place] [id number] 6 MO OV Pulmonary Medicine Comment on above: 6 MO OV Start: 03-14-2025 Influenza vaccination [facility] Start: 02-03-2025 End: 02-03-2025 Patient encounter procedure 02/03/2025 1:00 PM EDT Appointment Radiology [address] [place] [phone] Multiple thyroid nodules [E04.2] Radiology Comment on above: Multiple thyroid nodules [E04.2] Start: 01-26-2025 End: 02-24-2026 US Thyroid gland US THYROID/PARATHYROID Radiology Routine Multiple thyroid nodules Expected: 01/26/2025, Expires: 02/24/2026 [facility] Comment on above: Expected: 01/26/2025, Expires: Start: 01-25-2025 End: 04-26-2025 Cobalamin (Vitamin B12) [Mass/volume] in Serum or Plasma [facility] Work Phone: Comment on above: Expected: 01/25/2025, Expires: Start: 01-25-2025 End: 01-25-2025 Patient encounter procedure 01/25/2025 12:40 PM EDT Office Visit [facility] [address] [facility] [place] [id number] Nadia Brambila, MOCK UP MAKER.STUDY LEAD [address] [place] [phone] 6 month exam [facility] [place] Comment on above: 6 month exam Start: 01-21-2025 End: 01-21-2025 Patient encounter procedure Neurology Comment on above: 6 month follow up 6 month follow up RL S & Neuropathy, Requip 1 mg & Mag QHS Start: 01-17-2025 End: 01-17-2025 Patient encounter procedure 01/17/2025 9:00 AM EDT Office Visit [facility] [place] [address] [facility] [place] [id number] Nadia Brambila, MOCK UP MAKER.STUDY LEAD [address] [facility] [place] [phone] Too much sun , Still not feeling good, Lots of gurd . Do .I need blood work before. - per [facility] Appt request [facility] [place] Comment on above: Too much sun , Still not feeling good, L ots of gurd . Do .I need blood work before. - per [employer] request Start: 01-10-2025 Influenza vaccination Influenza Vaccine (#1) [facility] Comment on above: Postponed from 03/14/2024 (Declined at t his time) Start: 12-30-2024 End: 12-30-2024 Patient encounter procedure 12/30/2024 11:45 AM EDT Office Visit Pulmonary Medicine [address] [place], [place] [phone] Angelika Chavez MD [address] [place], [place] [phone] 6 month f/u Pulmonary Medicine Comment on above: 6 month f/u Start: 11-24-2024 End: 11-24-2024 Patient encounter procedure 11/24/2024 10:00 AM EDT Office Visit Pain Management [address] [place], [place] [phone] Larry Burdick MD [address] [place] [address] low back pain (last OV 12/23/2022) Pain Management Comment on above: low back pain (last OV 12/23/2022) Start: 11-10-2024 End: 11-10-2024 Patient encounter procedure 11/10/2024 10:30 AM EDT Office Visit [facility] [place] [address] [place] [id number] Lora Santiago MD [address] [place] [address] [facility] [place] Start: 10-29-2024 End: 10-29-2024 Patient encounter procedure [facility] [place] Comment on above: 6 month f/u Start: 10-26-2024 Anxiety Screening Anxiety Screening [facility] Start: 10-26-2024 Depression Screening Depression Screening [facility] Start: 08-02-2024 DIABETES SCREEN DIABETES SCREEN [facility] Start: 07-26-2024 End: 07-26-2024 Patient encounter procedure [facility] [place] Comment on above: medicare wellness est care-suture rosie dona Start: 07-21-2024 Covid-19 Vaccine () Covid-19 Vaccine () [facility] Comment on above: Postponed from 03/14/2023 (Declined at t his time) Start: 07-21-2024 RSV Vaccine (1 - 1-dose 60+ series) RSV Vaccine (1 - 1-dose 60+ series) [facility] Comment on above: Postponed from 1996 (Insurance Cov erage) Start: 07-21-2024 RSV Vaccine (1 - 1-dose 75+ series) RSV Vaccine (1 - 1-dose 75+ series) [facility] Comment on above: Postponed from 2011 (Insurance Cov erage) Start: 07-21-2024 Shingrix Vaccine (1 of 2) Shingrix Vaccine (1 of 2) [facility] Comment on above: Postponed from 1986 (Insurance Cov erage) Start: 07-16-2024 End: 07-16-2024 Patient encounter procedure Neurology Comment on above: Follow up three months Neuropathy, RLS Start: 07-14-2024 Advance Directive Discussion Advance Directive Discussion [facility] Start: 06-23-2024 End: 06-23-2024 Patient encounter procedure 06/23/2024 11:00 AM EST Office Visit Pulmonary Medicine [address] [place] [phone] Kamille Rizo, PA-C [address] [place] [phone] 6 MTH F/U COPD Pulmonary Medicine Comment on above: 6 MTH F/U COPD Start: 06-23-2024 End: 06-23-2024 ambulatory 06/23/2024 10:45 AM EST Procedure PULM LAB [facility] [address] [place] [address] W[facility], Pulm Lab [facility] [address] [place] [address] 6 MTH F/U COPD PUL[facility] LAB [facility] Comment on above: 6 MTH F/U COPD Start: 05-12-2024 End: 05-12-2024 Patient encounter procedure 05/12/2024 12:00 PM EDT Office Visit [facility] [address] [place] [address] Lora Santiago MD [address] [place] [address] [facility] Start: 04-29-2024 End: 04-29-2024 Patient encounter procedure 04/29/2024 2:40 PM EDT Office Visit [facility] [place] [address] [facility] [place] [address] Nadia Brambila APRN.STUDY LEAD [address] [facility] [place] [id number] was seen in on 04/28 for fall, pt reports that steri strips are not holding [facility] [place] Comment on above: was seen in on 04/28 for fall, pt rep orts that steri strips are not holding Start: 04-14-2024 End: 04-14-2024 Patient encounter procedure 04/14/2024 10:10 AM EDT Appointment Mammogram [address] [place] [address] [facility] Mamm[facility] Comment on above: [facility] [place] Start: 04-12-2024 End: 04-12-2024 Patient encounter procedure [facility] Comment on above: screening [place] to see dr Davis clemons. Start: 04-07-2024 End: 04-07-2024 Patient encounter procedure 04/07/2024 10:00 AM EDT Office Visit [facility] [place] [address] [facility] [place] [id number] Gema Coleman APRN.STUDY LEAD [address] [place], [place] [id number] Hip pain [facility] Comment on above: Hip pain Start: 04-02-2024 End: 04-02-2024 Patient encounter procedure 04/02/2024 1:20 PM EDT Office Visit [facility] [address] [place], [place] [id number] Nadia Brambila MOCK UP MAKER.STUDY LEAD [address] [place], [place] [id number] 4 week f/u [facility] Comment on above: 4 week f/u Start: 03-29-2024 End: 06-28-2024 Ferritin [Mass/volume] in Serum or Plasma [facility] Work Phone: Comment on above: Expected: 03/29/2024, Expires: Start: 03-29-2024 End: 06-28-2024 Iron and Iron binding capacity panel - Serum or Plasma [facility] Comment on above: Expected: 03/29/2024, Expires: Start: 03-29-2024 End: 03-29-2024 Patient encounter procedure 03/29/2024 11:30 AM EDT Office Visit Neurology [address] [place] [address] Ke Grant, MOCK UP MAKER.STUDY LEAD [address] [place] [address] Follow up three months Neuropathy, RLS Neurology Comment on above: Follow up three months Neuropathy, RLS Start: 03-23-2024 End: 03-23-2024 Patient encounter procedure 03/23/2024 1:20 PM EDT Office Visit [facility] [address] [place], [place] [id number] Nadia Brambila MOCK UP MAKER.STUDY LEAD [address] [place], [place] [id number] 4 week f/u [facility] [place] Comment on above: 4 week f/u Start: 03-14-2024 Covid-19 Vaccine ( season) Covid-19 Vaccine ( season) [facility] Start: 03-14-2024 Covid-19 Vaccine ( season) Covid-19 Vaccine () [facility] Start: 03-14-2024 Influenza vaccination Influenza Vaccine (#1) [facility] Start: 02-05-2024 End: 02-05-2024 Patient encounter procedure [facility] [place] Comment on above: 6 month follow up/ physical Start: 01-19-2024 End: 01-19-2024 Patient encounter procedure 01/19/2024 11:20 AM EDT Office Visit Family Medicine [place] [address] [place] [address] Tee Montgomery PA-C [address] [place] [address] 6 month follow up/ physical [facility] [place] Comment on above: 6 month follow up/ physical Start: 01-08-2024 End: 01-08-2024 Patient encounter procedure 01/08/2024 9:20 AM EDT Office Visit [facility] [place] [address] [place] [address] Nadia Brambila, MOCK UP MAKER.HEARSE DRIVER [address] [place] [address] Left Hip Pain. See message 01/07/2024. [facility] [place] Comment on above: Left Hip Pain. See message 01/07/2024. Start: 12-24-2023 End: 12-24-2023 Patient encounter procedure 12/24/2023 1:00 PM EDT Office Visit Pulmonary Medicine [address] [facility] [place] [address] Kamille Rizo PALitaC [address] [address] COPD- 6m Check up (reschduled x3) Pulmonary Medicine Comment on above: COPD- 6m Check up (reschduled x3) Start: 12-22-2023 End: 03-22-2024 INDIA BY IFA WITH REFLEX [place] BY IFA WITH REFLEX Lab Routine Restless leg Neuropathy of both feet Neuropathy Expected: 12/22/2023, Expires: 03/22/2024 [facility] Comment on above: Expected: 12/22/2023, Expires: Start: 12-22-2023 End: 03-22-2024 Erythrocyte sedimentation rate SEDIMENTATION RATE, WESTERGREN Lab Routine Restless leg Neuropathy Expected: 12/22/2023, Expires: 03/22/2024 [facility] Comment on above: Expected: 12/22/2023, Expires: Start: 12-22-2023 End: 03-22-2024 Ferritin [Mass/volume] in Serum or Plasma FERRITIN Lab Routine Restless leg Neuropathy of both feet Neuropathy History of iron deficiency Expected: 12/22/2023, Expires: 03/22/2024 [facility] Work Phone: Comment on above: Expected: 12/22/2023, Expires: Start: 12-22-2023 End: 03-22-2024 Iron and Iron binding capacity panel - Serum or Plasma IRON AND TIBC Lab Routine Restless leg History of iron deficiency Expected: 12/22/2023, Expires: 03/22/2024 [facility] Comment on above: Expected: 12/22/2023, Expires: Start: 12-22-2023 End: 12-22-2023 Patient encounter procedure 12/22/2023 11:00 AM EDT Office Visit Neurology [address] [facility] [place] [id number] Bang Plummer Jr., MD [address] [facility] [address] [place] [address] Provider requested general neuro Neurology Comment on above: Provider requested general neuro Start: 09-25-2023 End: 12-25-2023 CBC W Auto Differential panel - Blood CBC + DIFF Lab Routine Neuropathy of both feet Bilateral leg edema Expected: 09/25/2023, Expires: 12/25/2023 [facility] Work Phone: Comment on above: Expected: 09/25/2023, Expires: Start: 09-25-2023 End: 12-25-2023 Comprehensive metabolic 2000 panel - Serum or Plasma COMP METABOLIC PANEL Lab Routine Neuropathy of both feet Bilateral leg edema Expected: 09/25/2023, Expires: 12/25/2023 [facility] Work Phone: Comment on above: Expected: 09/25/2023, Expires: Start: 09-25-2023 End: 12-25-2023 Natriuretic peptide.B prohormone N-Terminal [Mass/volume] in Serum or Plasma NT PRO BNP Lab Routine Bilateral leg edema Shortness of breath Expected: 09/25/2023, Expires: 12/25/2023 [facility] Work Phone: Comment on above: Expected: 09/25/2023, Expires: 4 Start: 09-25-2023 End: 12-25-2023 PROTEIN ELECT RND UR W/INTERP PROTEIN ELECT RND UR W/INTERP Lab Routine Neuropathy of both feet Expected: 09/25/2023, Expires: 12/25/2023 [facility] Work Phone: Comment on above: Expected: 09/25/2023, Expires: 4 Start: 09-25-2023 End: 12-25-2023 PROTEIN ELECTROPHORESIS SERUM W/INTERP PROTEIN ELECTROPHORESIS SERUM W/INTERP Lab Routine Neuropathy of both feet Expected: 09/25/2023, Expires: 12/25/2023 [facility] Work Phone: Comment on above: Expected: 09/25/2023, Expires: Start: 09-25-2023 End: 12-25-2023 Thyrotropin [Units/volume] in Serum or Plasma TSH BLD Lab Routine Neuropathy of both feet Bilateral leg edema Expected: 09/25/2023, Expires: 12/25/2023 [facility] Work Phone: Comment on above: Expected: 09/25/2023, Expires: 4 Start: 07-19-2023 End: 09-18-2023 Basic metabolic 2000 panel - Serum or Plasma BASIC METABOLIC PNL Lab Routine Hyperglycemia Essential hypertension, benign Expected: 07/19/2023, Expires: 09/18/2023 [facility] Work Phone: Comment on above: Expected: 07/19/2023, Expires: 4 Start: 07-19-2023 End: 09-18-2023 Hemoglobin A1c in Blood HGB A1C Lab Routine Hyperglycemia Expected: 07/19/2023, Expires: 09/18/2023 [facility] Work Phone: Comment on above: Expected: 07/19/2023, Expires: Start: 07-14-2023 Behavioral Health Screening Behavioral Health Screening [facility] Start: 07-14-2023 Depression Assessment Depression Assessment [facility] Start: 06-17-2023 COVID-19 VACCINE (5 - Booster for Moderna series) COVID-19 VACCINE (5 - Booster for Moderna series) [facility] Comment on above: Postponed from 12/27/2021 (Declined at t his time) Start: 06-17-2023 COVID-19 VACCINE (5 - Moderna series) COVID-19 VACCINE (5 - Moderna series) [facility] Comment on above: Postponed from 12/27/2021 (Declined at t his time) Start: 06-17-2023 SHINGRIX VACCINE (1 of 2) SHINGRIX VACCINE (1 of 2) [facility] Comment on above: Postponed from 1986 (Insurance Cov erage) Start: 06-17-2023 Urine microalbumin profile DTAP,TDAP,TD (1 - Tdap) [facility] Comment on above: Postponed from 02/05/2016 (Insurance Cov erage) Start: 05-21-2023 End: 05-21-2023 Patient encounter procedure 05/21/2023 12:00 PM EST Office Visit [facility] [address] [place] [address] [address] [place] [id number] Lora Santiago MD [address] [facility], [address] [place] [address] [facility] Start: 05-13-2023 End: 05-27-2023 SARS-CoV-2 (COVID-19) RNA [Presence] in Respiratory specimen by DHARMESH with probe detection [facility] Work Phone: Comment on above: Expected: 05/13/2023, Expires: 3 Start: 03-14-2023 Covid-19 Vaccine () Covid-19 Vaccine () [facility] Start: 03-14-2023 Influenza vaccination [facility] Start: 12-21-2022 End: 02-20-2023 Hemoglobin A1c in Blood HGB A1C Lab Routine Hyperglycemia Expected: 12/21/2022, Expires: 02/20/2023 [facility] Work Phone: Comment on above: Expected: 12/21/2022, Expires: 3 Start: 11-19-2022 End: 01-19-2023 25-hydroxyvitamin D3 [Mass/volume] in Serum or Plasma VITAMIN D 25 HYDROXY Lab Routine Vitamin D deficiency Expected: 11/19/2022, Expires: 01/19/2023 [facility] Work Phone: Comment on above: Expected: 11/19/2022, Expires: 3 Start: 11-19-2022 End: 01-19-2023 CBC W Auto Differential panel - Blood CBC + DIFF Lab Routine Essential hypertension, benign Hyperglycemia Expected: 11/19/2022, Expires: 01/19/2023 [facility] Work Phone: Comment on above: Expected: 11/19/2022, Expires: 3 Start: 11-19-2022 End: 01-19-2023 Comprehensive metabolic 2000 panel - Serum or Plasma COMP METABOLIC PANEL Lab Routine Essential hypertension, benign Gastroesophageal reflux disease without esophagitis Hyperglycemia Mixed hyperlipidemia Expected: 11/19/2022, Expires: 01/19/2023 [facility] Work Phone: Comment on above: Expected: 11/19/2022, Expires: 3 Start: 11-19-2022 End: 01-19-2023 Hemoglobin A1c in Blood HGB A1C Lab Routine Hyperglycemia Expected: 11/19/2022, Expires: 01/19/2023 [facility] Work Phone: Comment on above: Expected: 11/19/2022, Expires: 3 Start: 11-19-2022 End: 01-19-2023 Lipid 1996 panel - Serum or Plasma LIPID PANEL BASIC Lab Routine Hyperglycemia Mixed hyperlipidemia Expected: 11/19/2022, Expires: 01/19/2023 [facility] Work Phone: Comment on above: Expected: 11/19/2022, Expires: 3 Start: 11-19-2022 End: 01-19-2023 Magnesium [Mass/volume] in Serum or Plasma MAGNESIUM BLD Lab Routine Gastroesophageal reflux disease without esophagitis Expected: 11/19/2022, Expires: 01/19/2023 [facility] Work Phone: Comment on above: Expected: 11/19/2022, Expires: 3 Start: 09-20-2022 End: 11-20-2022 25-hydroxyvitamin D3 [Mass/volume] in Serum or Plasma VITAMIN D 25 HYDROXY Lab Routine Vitamin D deficiency Expected: 09/20/2022, Expires: 11/20/2022 [facility] Work Phone: Comment on above: Expected: 09/20/2022, Expires: 3 Start: 09-20-2022 End: 11-20-2022 Bacteria identified in Urine by Culture URINE CULTURE Microbiology Routine Urinary tract infection without hematuria, site unspecified Expected: 09/20/2022, Expires: 11/20/2022 [facility] Work Phone: Comment on above: Expected: 09/20/2022, Expires: 3 Start: 09-20-2022 End: 11-20-2022 CBC W Auto Differential panel - Blood CBC + DIFF Lab Routine Essential hypertension, benign Expected: 09/20/2022, Expires: 11/20/2022 [facility] Work Phone: Comment on above: Expected: 09/20/2022, Expires: 3 Start: 09-20-2022 End: 11-20-2022 Comprehensive metabolic 2000 panel - Serum or Plasma COMP METABOLIC PANEL Lab Routine Essential hypertension, benign Mixed hyperlipidemia Expected: 09/20/2022, Expires: 11/20/2022 [facility] Work Phone: Comment on above: Expected: 09/20/2022, Expires: 3 Start: 09-20-2022 End: 11-20-2022 Lipid 1996 panel - Serum or Plasma LIPID PANEL BASIC Lab Routine Mixed hyperlipidemia Expected: 09/20/2022, Expires: 11/20/2022 [facility] Work Phone: Comment on above: Expected: 09/20/2022, Expires: 3 Start: 07-14-2022 ADVANCE DIRECTIVE DISCUSSION ADVANCE DIRECTIVE DISCUSSION [facility] Start: 07-14-2022 DEPRESSION ASSESSMENT DEPRESSION ASSESSMENT [facility] Start: 03-14-2022 Influenza vaccination INFLUENZA (#1) [facility] Start: 01-26-2022 SHINGRIX VACCINE (1 of 2) SHINGRIX VACCINE (1 of 2) [facility] Comment on above: Postponed from 1986 (Declined at t his time) Postponed from 03/20 (Declined at this time) Start: 12-27-2021 COVID-19 VACCINE (5 - Booster for Moderna series) COVID-19 VACCINE (5 - Booster for Moderna series) [facility] Start: 10-08-2021 End: 12-08-2021 CBC panel - Blood by Automated count CBC Lab Routine Diarrhea of presumed infectious origin Intermittent generalized abdominal pain Expected: 10/08/2021, Expires: 12/08/2021 [facility] Work Phone: Comment on above: Expected: 10/08/2021, Expires: 2 Start: 10-08-2021 End: 12-08-2021 Comprehensive metabolic 2000 panel - Serum or Plasma COMP METABOLIC PANEL Lab Routine Diarrhea of presumed infectious origin Intermittent generalized abdominal pain Expected: 10/08/2021, Expires: 12/08/2021 [facility] Work Phone: Comment on above: Expected: 10/08/2021, Expires: 2 Start: 07-14-2021 ADVANCE DIRECTIVE DISCUSSION ADVANCE DIRECTIVE DISCUSSION [facility] Start: 07-14-2021 DEPRESSION ASSESSMENT DEPRESSION ASSESSMENT [facility] Start: 05-09-2021 End: 05-09-2021 Office Visit 05/09/2021 Office Visit Dermatology Lora Santiago MD [address] [facility], [address] [place] [address] Derm[facility] Start: 01-03-2019 Annual Wellness Visit (AWV) Annual Wellness Visit (AWV) [facility] Work Phone: Start: 02-05-2016 Urine microalbumin profile DTAP,TDAP,TD (1 - Tdap) [facility] Start: 2011 RSV Immunization for Adults (1 - 1-dose 75+ series) RSV Immunization for Adults (1 - 1-dose 75+ series) [facility] Start: 2001 Pneumococcal 65+ years Vaccine (2 of 2 - PPSV23) Pneumococcal 65+ years Vaccine (2 of 2 - PPSV23) [facility] Work Phone: Start: 03-14-2001 Medicare Annual Wellness Visit Medicare Annual Wellness Visit [facility] Start: 1996 RSV Immunization aged 60 or older (1 - 1-dose 60+ series) RSV Immunization aged 60 or older (1 - 1-dose 60+ series) [facility] Start: 1996 RSV Vaccine (1 - 1-dose 60+ series) RSV Vaccine (1 - 1-dose 60+ series) [facility] Start: 1991 Screening for osteoporosis DEXA (modify frequency per FRAX score) [facility] Work Phone: Start: 1986 Shingles Vaccine (1 of 2) Shingles Vaccine (1 of 2) [facility] Work Phone: Start: 1986 SHINGRIX VACCINE (1 of 2) SHINGRIX VACCINE (1 of 2) [facility] Start: 1986 Zoster Vaccines (1 of 2) Zoster Vaccines (1 of 2) [facility] Start: 1955 DTaP/Tdap/Td vaccine (1 - Tdap) DTaP/Tdap/Td vaccine (1 - Tdap) [facility] Work Phone: Start: 1948 Depression Screening Depression Screening [facility] Start: 1946 Lipid panel Lipid screen [facility] Work Phone: Start: 1936 Examination of skin Derm Melanoma Skin Check [facility] Start: 1936 Creatinine measurement Creatinine monitoring [facility] Work Phone: Start: 1936 Lipid panel Lipid Panel [facility] Start: 1936 Medicare Annual Wellness (AWV) Medicare Annual Wellness (AWV) [facility] Start: 1936 Potassium monitoring Potassium monitoring [facility] Work Phone: Start: 1936 Screening for osteoporosis Bone Density Scan [facility] COVID & INFLUENZA A/ B & RSV PCR, ROUTINE COVID & INFLUENZA A/B & RSV PCR, ROUTINE Microbiology Routine Acute upper respiratory infection, unspecified Viral illness Ordered: 03/10/2024 [facility] Work Phone: Comment on above: Ordered: 03/10/2024 CYTOLOGY NON-IMPREGNATOR AND DRIER CYTOLOGY NON-GY N Lab Routine Multiple thyroid nodules Ordered: 02/24/2023 [facility] Work Phone: Comment on above: Ordered: 02/24/2023 End: 05-09-2024 DAMARIS SCREENING W [place] DAMARIS SCREENING [facility] [place] Radiology Routine Personal history of breast cancer Visit for screening mammogram 1 Occurrences starting 04/10/2023 until 05/09/2024 [facility] Work Phone: Comment on above: 1 Occurrences starting 04/10/2023 until 05/09/2024 PT PLAN OF CARE CERTIFICATION PT PLAN OF CARE CERTIFICATION Procedures Routine Acute midline low back pain without sciatica Ordered: 11/06/2022 [facility] Comment on above: Ordered: 11/06/2022 End: 11-29-2023 Radex spine lumbosacral 2/3 views XR LUMBAR GENERAL 3V AP/LAT/L5-S1 Radiology Routine Acute midline low back pain without sciatica 1 Occurrences starting 10/30/2022 until 11/29/2023 [facility] Work Phone: Comment on above: 1 Occurrences starting 10/30/2022 until 11/29/2023 End: 01-22-2025 SPIROMETRY BASELINE ONLY SPIROMETRY BASELINE ONLY PFT Routine Stage 1 mild COPD by GOLD classification ([facility]) 1 Occurrences starting 12/24/2023 until 01/22/2025 [facility] Work Phone: Comment on above: 1 Occurrences starting 12/24/2023 until 01/22/2025 End: 09-07-2023 SPIROMETRY WITH DILATOR IF OBSTRUCTED SPIROMETRY WITH DILATOR IF OBSTRUCTED PFT Routine Stage 1 mild COPD by GOLD classification ([facility]) 1 Occurrences starting 08/08/2022 until 09/07/2023 [facility] Work Phone: Comment on above: 1 Occurrences starting 08/08/2022 until 09/07/2023 SPIROMETRY WITH DILA TOR IF OBSTRUCTED SPIROMETRY WITH DILATOR IF OBSTRUCTED PFT Routine Stage 1 mild COPD by GOLD classification ([facility]) 02/06/2023 9:50 AM EDT [facility] Work Phone: End: 10-25-2020 Surgical Pathology Surgical Pathology Lab Routine Once for 1 Occurrences starting 10/25/2020 until 10/25/2020 [facility] Work Phone: Comment on above: Once for 1 Occurrences starting 10/26/19 until 10/25/2020 Surgical Pathology Surgical Path ology Lab Routine 10/25/2020 12:00 AM EDT [facility] Work Phone: Tissue exam Tissue exam Path ology and Cytology Timed Neoplasm of uncertain behavior of skin Release Upon Ordering for 1 Occurrences starting 11/18/2023 [facility] Work Phone: Comment on above: Release Upon Ordering for 1 Occurrences starting 11/18/2023 Tissue exam [facility] Work Phone: Comment on above: Release Upon Ordering for 1 Occurrences starting 05/12/2024 Tissue exam Tissue exam Path ology and Cytology Timed Neoplasm of uncertain behavior of skin Release Upon Ordering for 1 Occurrences starting 01/19/2025 [facility] Work Phone: Comment on above: Release Upon Ordering for 1 Occurrences starting 01/19/2025 UA DIP, URINE (POC) UA DIP, URIN E (POC) Lab Routine Diarrhea of presumed infectious origin Intermittent generalized abdominal pain Ordered: 10/08/2021 [facility] Work Phone: Comment on above: Ordered: 10/08/2021 End: 02-15-2024 Us soft tissue head & neck real time imge docm US THYROID/PARATHYROID Radiology Routine Multiple thyroid nodules 1 Occurrences starting 01/16/2023 until 02/15/2024 [facility] Work Phone: Comment on above: 1 Occurrences starting 01/16/2023 until 02/15/2024 US Thyroid gland US THYROID/PARA THYROID Radiology Routine Multiple thyroid nodules 02/03/2025 1:25 PM EDT [facility] Work Phone: [facility] Immunizations Immunization Date Immunization Notes Care Provider Vanessa engel 05-20-2024 respiratory syncytia l virus (RSV) vaccine, adjuvanted (AREXVY) Nadia Brambila MOCK UP MAKER.STUDY LEAD Work Phone: [facility] 04-28-2024 TD(adult) unspecifie d formulation Augie ROSEN Work Phone: [facility] Work Phone: 04-28-2024 tetanus and diphther ia toxoids, adsorbed, preservative free, for adult use (5 Lf of tetanus toxoid and 2 Lf of diphtheria toxoid) Augie ROSEN Work Phone: [facility] 04-14-2023 influenza, high dose seasonal, preservative-free NA Montgomery PA-C Work Phone: [facility] 04-14-2023 influenza virus vaccine, unspecified formulation Bang Plummer Jr., MD Work Phone: [facility] 05-14-2022 influenza, high-dose , quadrivalent vaccine (FLUZONE HIGH DOSE QUADRIVALENT) Wi Nurse Work Phone: [facility] Work Phone: 05-14-2022 influenza virus vaccine, unspecified formulation Lora Santiago MD Work Phone: [facility] 11-01-2021 COVID-19 vaccine, fu ll dose (MODERNA) Calista Vee RN [facility] 05-05-2021 influenza, high-dose , quadrivalent vaccine (FLUZONE HIGH DOSE QUADRIVALENT) NA Montgomery PA-C Work Phone: [facility] Work Phone: 08-31-2020 COVID-19 vaccine, fu ll dose (MODERNA) NA Montgomery PA-C Work Phone: [facility] 08-03-2020 COVID-19 vaccine, fu ll dose (MODERNA) NA Montgomery PA-C Work Phone: [facility] 05-06-2020 influenza, high-dose , quadrivalent vaccine (FLUZONE HIGH DOSE QUADRIVALENT) NA Montgomery PA-C Work Phone: [facility] 05-14-2019 influenza, high dose seasonal, preservative-free NA Montgomery PA-C Work Phone: [facility] 04-17-2018 influenza, high dose seasonal, preservative-free NA Montgomery PA-C Work Phone: [facility] 04-08-2017 influenza, high dose seasonal, preservative-free NA Montgomery PA-C Work Phone: [facility] Work Phone: 06-03-2016 influenza, high dose seasonal, preservative-free NA Montgomery PA-C Work Phone: [facility] Work Phone: 02-04-2016 tetanus and diphther ia toxoids, adsorbed, preservative free, for adult use (5 Lf of tetanus toxoid and 2 Lf of diphtheria toxoid) NA Montgomery PA-C Work Phone: [facility] 02-04-2016 tetanus toxoid, redu robb diphtheria toxoid, and acellular pertussis vaccine, adsorbed NA Montgomery PA-C Work Phone: [facility] Work Phone: 05-19-2015 influenza, high dose seasonal, preservative-free NA Montgomery PA-C Work Phone: [facility] 05-19-2015 pneumococcal conjuga te vaccine, 13 valent NA Montgomery PA-C Work Phone: [facility] 04-18-2014 influenza, seasonal, injectable NA Mnotgomery PA-C Work Phone: [facility] 04-21-2013 influenza virus vaccine, unspecified formulation NA Montgomery PA-C Work Phone: [facility] 05-17-2008 pneumococcal polysaccharide vaccine, 23 valent Calista Vee RN Work Phone: [facility] Work Phone: Payers Date Payer Category Payer Self-pay [id number] 2013 Medicare supplementa l policy (as second payer) [employer] MEDICARE SUPPLEMENT [id number] 2013 Private Health Insurance [employer]NA HU[employer] MEDICARE SUPPLEMENT [id number] 2013-Present [phone] [address] [address] [place] [address] Indemnity [id number] 2013 Private Health Insurance [id number] 2013 Private Health Insurance [id number] 2001 Medicare MEDICARE MEDICAR E A AND B [id number] 2001-Present [phone] [address] [address] [place] [address] Medicare [id number] 2001 Medicare [id number] 2001 Medicare [id number] Unknown [id number] Unknown [id number] Unknown [id number] Social History Date Type Detail Facility Start: 07-19-2020 End: 03-10-2024 Tobacco smoking status NHIS Former smoker [facility] Start: 07-19-2020 End: 03-10-2024 Tobacco use and exposure Never used [facility] Phone: Start: 1935 Sex Assigned At Not on file [facility] Phone: Start: 03-13-2021 End: 01-28-2023 Exposure to SARS-CoV-2 (event) Not sure [facility] Phone: Start: 03-10-1955 End: 07-14-1986 History of tobacco use Current smoker [facility] Start: 10-08-2021 End: 01-21-2025 Alcohol intake Current drinker of alcohol (finding) [facility] Start: 01-23-2021 End: 06-11-2022 History SDOH Alcohol Frequency 4 [facility] Start: 01-23-2021 End: 06-11-2022 History SDOH Alcohol Std Drinks 1 [facility] Start: 03-10-2014 History SDOH Alcohol Comment Occasional. [facility] Start: 01-23-2021 End: 06-11-2022 History SDOH Social Connections Phone 5 [facility] Start: 01-23-2021 End: 06-11-2022 History SDOH Social Connections Religious 3 [facility] Start: 01-23-2021 End: 06-11-2022 History SDOH Transport Med 2 [facility] Start: 01-22-2021 Education 17 [facility] Start: 03-10-2014 Tobacco Comment Parents did not smoke in childhood home. [facility] Start: 1935 Sex Assigned At Female [facility] Start: 12-04-2021 End: 12-17-2021 Exposure to SARS-CoV-2 (event) Unable to assess [facility] Start: 03-10-1954 End: 07-14-1986 History of tobacco use Cigarette Smoker [facility] Work Phone: Start: 06-29-2018 End: 11-19-2022 Cigarettes smoked current (pack per day) - Reported 1.3 [facility] Start: 04-15-2022 Tobacco Comment Parents did not smoke in childhood home. Spouse non smoker. [facility] Start: 06-18-2022 Tobacco smoking status NHIS Unknown if ever smoked [facility] Start: 11-19-2022 End: 01-28-2023 Tobacco use panel [facility] Active Member of [facility] or Organizations Not on file [facility] Are you now , , , , never or living with a partner? [facility] How often to you hav e a drink containing alcohol? 2-4 times a month [facility] How many standard dr inks containing alcohol do you have on a typical day? 1 or 2 [facility] How often do you hav e 6 or more drinks on 1 occasion? Never [facility] Do you feel stress - tense, restless, nervous, or anxious, or unable to sleep at night because your mind is troubled all the time - these days [OSQ] Not at all [facility] (I/We) worried jenny er (my/our) food would run out before (I/we) got money to buy more. Never true [facility] Work Phone: In the past 12 month s, was there a time when you were not able to pay the mortgage or rent on time? No [facility] Start: 01-15-2019 Gender identity Identifies as female gender (finding) [facility] Start: 03-02-2019 Sexual orientation Heterosexual (finding) [facility] Do you belong to any clubs or organizations such as alevism groups, unions, fraternal or athletic groups, or school groups? Yes [facility] How often to you hav e a drink containing alcohol? 2-3 time sa week [facility] Start: 02-11-2022 Sex Female (finding) [facility] Do you feel stress - tense, restless, nervous, or anxious, or unable to sleep at night because your mind is troubled all the time - these days [OSQ] Only a little [facility] Goals Date Patient Goal Desired Activity /State Personal health goal Comment on above: Formatting of this n ote might be different from the original. Maintain independence. Personal health goal Comment on above: Formatting of this n ote might be different from the original. Patient has the following Chronic Obstructive Pulmonary Disease goals: Two PCP visits annually and Pulmonology visit annually Education provided and reviewed with patient - sent on 12/05/22 COPD LEE Education - COPD About Patient will meet these goals by 07/13/2023 (describe interventions done by PCC) Comment on above: Formatting of this n ote might be different from the original. Comment on above: Formatting of this n ote might be different from the original. Stay independent. Comment on above: Formatting of this n ote might be different from the original. Maintain independence. Comment on above: Formatting of this n ote might be different from the original. Patient has the following Chronic Obstructive Pulmonary Disease goals: Two PCP visits annually and Pulmonology visit annually Education provided and reviewed with patient - sent on 12/05/22 COPD LEE Education - COPD About Patient will meet these goals by 07/13/2023 (describe interventions done by PCC) Functional Status Date Assessment Result Facility 12-28-2014 Are you deaf, or do you have serious difficulty hearing No 12/28/2014 9:01 AM Dorothy Trinh LPN No [facility] 12-28-2014 Are you blind, or do you have serious difficulty seeing, even when wearing glasses No 12/28/2014 9:01 AM Dorothy Trinh LPN No [facility] 12-28-2014 Do you have serious difficulty walking or climbing stairs No 12/28/2014 9:01 AM Dorothy Trinh LPN No [facility] 12-28-2014 Do you have difficul ty dressing or bathing No 12/28/2014 9:01 AM Dorothy Trinh LPN No [facility] 12-28-2014 Because of a physica l, mental, or emotional condition, do you have difficulty doing errands alone such as visiting a physician's office or shopping No 12/28/2014 9:01 AM Dorothy Trinh LPN No [facility] Mental Status Date Assessment Result Facility 12-28-2014 Because of a physica l, mental, or emotional condition, do you have serious difficulty concentrating, remembering, or making decisions No 12/28/2014 9:01 AM Dorothy Trinh LPN No [facility] Clinical Notes 10-07-2021 to 02-03-2025 Nany Erickson RDMS - 02/03/2025 1:00 PM EDTPatient InstructionsNadia Brambila APRN.INDRA - 01/25/2025 1:03 PM Eve Mittal LPN - 01/21/2025 10:17 AM EDTPatient Instructions Note Date & Type Note Facility 02-03-2025 History of Present illness Narrative Radiology Service Progress Note PATIENT NAME: Marshall Wu DATE OF SERVICE: February 03, 2025 TIME: 3:58 PM PATIENT IDENTITY VERIFICATION COMPLETED USING TWO (2) IDENTIFIERS: Name and Date of confirmed by patient verbally. FALL SCREENING: Has the patient had 2 falls in the last year or 1 fall with injury or currently using an Ambulatory Assistive Device (Walker, Cane, Wheelchair, Crutches, etc.)? No PATIENT GENDER DATA: Assigned female at . status: : No status: NO. PATIENT RELEVANT IMPLANT DATA REVIEWED: Not Applicable PATIENT PRESENTS WITH AN IMPLANTABLE OR ATTACHED STRANDING MACHINE OPERATOR HELPER: No RADIOLOGY DEPARTMENT: Ultrasound PERIPHERAL IV DATA: Not applicable SIGNED BY: Nany Erickson RDMS RVT February 03, 2025 3:58 PM documented in this encounter [facility] 02-03-2025 Note HNO ID: [id number] Author: NANY ERICKSON RDMS Service: ? Author Type: Historical Manuscripts Curator Type: Progress Notes Filed: 02/03/2025 15:58 Note Text: Radiology Service Progress Note PATIENT NAME: Marshall Wu DATE OF SERVICE: February 03, 2025 TIME: 3:58 PM PATIENT IDENTITY VERIFICATION COMPLETED USING TWO (2) IDENTIFIERS: Name and Date of confirmed by patient verbally. FALL SCREENING: Has the patient had 2 falls in the last year or 1 fall with injury or currently using an Ambulatory Assistive Device (Walker, Cane, Wheelchair, Crutches, etc.)? No PATIENT GENDER DATA: Assigned female at . status: : No status: NO. PATIENT RELEVANT IMPLANT DATA REVIEWED: Not Applicable PATIENT PRESENTS WITH AN IMPLANTABLE OR ATTACHED STRANDING MACHINE OPERATOR HELPER: No RADIOLOGY DEPARTMENT: Ultrasound PERIPHERAL IV DATA: Not applicable SIGNED BY: Nany Erickson RDMS RVMelanie February 03, 2025 3:58 PM [facility] 01-25-2025 Instructions Nadia Brambila APRN.STUDY LEAD - 01/25/2025 1:20 PM EDT - Continue your current esomeprazole (Nexium) twice daily as prescribed. - Keep taking hydrochlorothiazide for blood pressure; use a stool softener as needed to manage constipation from this medication. - Increase your solifenacin (overactive bladder medicine) from a half tablet to one full tablet daily and see if it helps with urgency. - Chew all meals thoroughly and drink a full 8-ounce glass of water with each meal and with every pill. - Avoid eating within two hours of bedtime. - Elevate the head of your bed about two inches (use blocks under the bedposts or a wedge pillow) to reduce nighttime acid reflux. - Choose smaller meals and avoid very large or heavy portions. - Add potassium-rich foods to your diet--such as bananas, tomato (with skin), and potatoes--to help support your electrolyte levels. - Stay well hydrated, especially in hot weather, to help maintain normal sodium and potassium levels. - Please schedule thyroid ultrasound today to check on your thyroid nodules. - Have lab tests drawn to recheck your electrolytes (potassium and sodium) and thyroid function as discussed. - Watch for any further episodes of food getting stuck or worsening reflux; if this happens, please contact the office for possible referral for endoscopy and dilation. Foods Rich in potassium: Rice (1 cup, white, cooked) 54 mg Egg (1 large) 69 mg Bread (1 slice, whole-wheat) 81 mg Flaxseed (1 tablespoon, whole) 84 mg Peanut butter (1 tablespoon) 90 mg Lettuce (1 cup, iceberg, shredded) 102 mg Coffee (1 cup, brewed) 116 mg Tuna (3 oz, light, canned in water, drained) 153 mg Brown rice (1 cup, cooked) 154 mg Cashew nuts (1 oz) 187 mg Apple (1 medium, with skin) 195 mg Lykens breast (3 oz, roasted) 212 mg Blackstrap molasses (1 tablespoon) 293 mg Beef (3 oz, top sirloin, grilled) 315 mg Irish Yogurt, plain (1 cup) 322 mg Tebbetts (3 oz) 326 mg Chicken breast (3 oz, boneless, grilled) 332 mg Milk (1 cup, 1%) 366 mg Tomato sauce (1/2 cup) 405 mg Banana (1 medium) 422 mg Potato (1 medium size, boiled, peeled) 490 mg Honeydew melon (1 cup, cubes) 357 mg Asparagus (1 cup, cooked) 404 mg Broccoli (1 cup cooked, chopped) 458 mg Cantaloupe (1 cup, cubes) 473 mg Dried apricots (5 halves) 488 mg Teton juice (1 cup) 496 mg Sweet potato (1 medium) 541 mg Clams (3 oz, cooked) 534 mg White beans (1/2 cup cooked) 595 mg Kidney beans (1 cup, canned) 607 mg Bok abby (1 cup, steamed) 630 mg Pomegranate (1 medium) 665 mg Lentils (1 cup, cooked) 731 mg Spinach (1 cup cooked) 839 mg Sarben squash (1 cup cooked) 896 mg Avocado (1 medium fruit) 974 mg Raisins (1 cup) 1,235 mg Prunes (1 cup, dried) 1,273 mg Beet greens (1 cup cooked) 1,309 mg documented in this encounter [facility] 01-25-2025 Note HNO ID: [id number] Author: NADIA BRAMBILA APRN.CNP Service: ? Author Type: Nurse Practitioner Type: Progress Notes Filed: 01/25/2025 13:21 Note Text: This is a 89 year old female who presents today with: Patient presents with: 6 Month Exam HISTORY OF PRESENT ILLNESS: Marshall Wu is a 89 year old female. Patient presents with: 6 Month Exam Marshall Wu is an 89-year-old female with a history of GERD, thyroid nodules, and OAB, presenting for evaluation of dysphagia and fatigue. Dysphagia: - Recent episode of food impaction while eating at a restaurant; required assistance to dislodge. - Similar incidents in the past, but not as severe. - Taking Nexium BID; occasionally requires additional Tums for symptom relief. - Denies eating large meals or lying down immediately after eating. Fatigue: - Persistent fatigue and lack of energy. - No recent weight loss, fever, chills, headaches, or changes in hearing or vision. - No chest pain, palpitations, or dyspnea. - No new muscle aches or joint pain. - No feelings of hopelessness, helplessness, or suicidal thoughts. Thyroid Nodules: - History of thyroid nodules; one nodule was removed approximately three years ago. - Marshall questions if nodules could be contributing to dysphagia. OAB: - Currently taking solifenacin, but only half a pill. - Marshall reports some improvement in urinary frequency, now able to go 3-4 hours between voids. - Uncertain if medication is fully effective. PAST MEDICAL HISTORY: PAST MEDICAL HISTORY Diagnosis Date Aortic sclerosis 2012 Found on echo Arthritis of foot Bilateral heel spurs. 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 rOPINIRole (REQUIP) 0.5 mg tablet Take 1 tablet by mouth at bedtime as needed (RLS). hydroCHLOROthiazide 12.5 mg capsule Take 1 capsule by mouth once daily. solifenacin 10 mg tablet Take 0.5 tablets by mouth once daily. budesonide-formoterol (SYMBICORT) 160-4.5 mcg/actuation inhaler Inhale 2 Puffs as instructed two times a day. lisinopril (ZESTRIL) 30 mg tablet Take 1 tablet by mouth once daily. atorvastatin (LIPITOR) 20 mg tablet TAKE 1 TABLET DAILY AT BEDTIME FOR CHOLESTEROL MAGNESIUM ORAL Take by mouth. ESOMEPRAZOLE MAGNESIUM (NEXIUM 24HR ORAL) Take by mouth. No current facility-administered medications for this visit. FAMILY HISTORY Problem Relation Age of Onset Alzheimer's Disease Mother Arthritis Father Stroke Father Breast Cancer Maternal Aunt other (lung cancer) Maternal Aunt Prostate Cancer Son Stroke Other Fatal. Brother in law. Social History Tobacco Use Smoking status: Former Current packs/day: 0.00 Average packs/day: 1.3 packs/day for 32.0 years (41.7 ttl pk-yrs) Types: Cigarettes Start date: [birth year]/10/1955 Quit date: 07/14/1986 Years since quittin.5 Smokeless tobacco: Never Tobacco comments: Parents did not smoke in childhood home. Spouse non smoker. Vaping Use Vaping status: Never Used Substance Use Topics Alcohol use: Yes Comment: Occasional. Drug use: No REVIEW OF SYSTEMS Constitutional: (+) fatigue, (+) malaise, (+) anorexia, (-) weight loss, (-) fever, (-) chills Head: (-) headache Cardiovascular: (+) ankle swelling, (-) chest pain, (-) palpitations Respiratory: (-) cough, (-) wheezing Gastrointestinal: (+) dysphagia, (+) nausea, (+) vomiting, (+) heartburn, (+) constipation, (-) diarrhea Genitourinary: (+) urinary frequency, (-) dysuria, (-) hematuria Musculoskeletal: (-) myalgias, (-) arthralgias Psychiatric: (-) suicidal ideation EXAM: BP 138/64 Pulse 83 Wt 68.9 kg (152 lb) SpO2 98% BMI 26.93 kg/m? PHYSICAL EXAM: GENERAL: NAD, alert and oriented. SKIN: Unremarkable, no rash, multiple skin lesions. HEAD: Normocephalic. NECK: Supple, no lymphadenopathy, normal thyroid, no carotid bruits. LUNGS: Clear to auscultation bilaterally, no wheezes/rhonchi/rales. HEART: Regular rate and rhythm, no murmurs. No ectopy. EXTREMITIES: Normal, no deformities, no skin discolorati (more content not included)... [facility] 01-25-2025 History of Present illness Narrative This is a 89 year old female who presents today with: Patient presents with: 6 Month Exam HISTORY OF PRESENT ILLNESS: Marshall Wu is a 89 year old female. Patient presents with: 6 Month Exam Marshall Wu is an 89-year-old female with a history of GERD, thyroid nodules, and OAB, presenting for evaluation of dysphagia and fatigue. Dysphagia: - Recent episode of food impaction while eating at a restaurant; required assistance to dislodge. - Similar incidents in the past, but not as severe. - Taking Nexium BID; occasionally requires additional Tums for symptom relief. - Denies eating large meals or lying down immediately after eating. Fatigue: - Persistent fatigue and lack of energy. - No recent weight loss, fever, chills, headaches, or changes in hearing or vision. - No chest pain, palpitations, or dyspnea. - No new muscle aches or joint pain. - No feelings of hopelessness, helplessness, or suicidal thoughts. Thyroid Nodules: - History of thyroid nodules; one nodule was removed approximately three years ago. - Marshall questions if nodules could be contributing to dysphagia. OAB: - Currently taking solifenacin, but only half a pill. - Marshall reports some improvement in urinary frequency, now able to go 3-4 hours between voids. - Uncertain if medication is fully effective. PAST MEDICAL HISTORY: PAST MEDICAL HISTORY Diagnosis Date Aortic sclerosis 2012 Found on echo Arthritis of foot Bilateral heel spurs. 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 rOPINIRole (REQUIP) 0.5 mg tablet Take 1 tablet by mouth at bedtime as needed (RLS). hydroCHLOROthiazide 12.5 mg capsule Take 1 capsule by mouth once daily. solifenacin 10 mg tablet Take 0.5 tablets by mouth once daily. budesonide-formoterol (SYMBICORT) 160-4.5 mcg/actuation inhaler Inhale 2 Puffs as instructed two times a day. lisinopril (ZESTRIL) 30 mg tablet Take 1 tablet by mouth once daily. atorvastatin (LIPITOR) 20 mg tablet TAKE 1 TABLET DAILY AT BEDTIME FOR CHOLESTEROL MAGNESIUM ORAL Take by mouth. ESOMEPRAZOLE MAGNESIUM (NEXIUM 24HR ORAL) Take by mouth. No current facility-administered medications for this visit. FAMILY HISTORY Problem Relation Age of Onset Alzheimer's Disease Mother Arthritis Father Stroke Father Breast Cancer Maternal Aunt other (lung cancer) Maternal Aunt Prostate Cancer Son Stroke Other Fatal. Brother in law. Social History Tobacco Use Smoking status: Former Current packs/day: 0.00 Average packs/day: 1.3 packs/day for 32.0 years (41.7 ttl pk-yrs) Types: Cigarettes Start date: [birth year]/10/1954 Quit date: 07/14/1986 Years since quittin.5 Smokeless tobacco: Never Tobacco comments: Parents did not smoke in childhood home. Spouse non smoker. Vaping Use Vaping status: Never Used Substance Use Topics Alcohol use: Yes Comment: Occasional. Drug use: No REVIEW OF SYSTEMS Constitutional: (+) fatigue, (+) malaise, (+) anorexia, (-) weight loss, (-) fever, (-) chills Head: (-) headache Cardiovascular: (+) ankle swelling, (-) chest pain, (-) palpitations Respiratory: (-) cough, (-) wheezing Gastrointestinal: (+) dysphagia, (+) nausea, (+) vomiting, (+) heartburn, (+) constipation, (-) diarrhea Genitourinary: (+) urinary frequency, (-) dysuria, (-) hematuria Musculoskeletal: (-) myalgias, (-) arthralgias Psychiatric: (-) suicidal ideation EXAM: BP 138/64 Pulse 83 Wt 68.9 kg (152 lb) SpO2 98% BMI 26.93 kg/m PHYSICAL EXAM: GENERAL: NAD, alert and oriented. SKIN: Unremarkable, no rash, multiple skin lesions. HEAD: Normocephalic. NECK: Supple, no lymphadenopathy, normal thyroid, no carotid bruits. LUNGS: Clear to auscultation bilaterally, no wheezes/rhonchi/rales. HEART: Regular rate and rhythm, no murmurs. No ectopy. EXTREMITIES: Normal, no deformities, no skin discoloration, no edema. NEURO: Awake, alert and oriented x3, cranial nerves II-XII grossly intact, normal gait, no involuntary motions. LABS: Labs: - CMP: - Potassium: Slightly low - Sodium: Slightly low - Magnesium: Normal - Alkaline phosphatase: Normal - Liver function tests: Normal ASSESSMENT/PLAN: 1. Essential hypertension, benign (I10) - Well-controlled on hydrochlorothiazide. - Advised to withhold hydrochlorothiazide on days with excessive heat exposure to prevent dehydration. 2. Chronic obstructive pulmonary disease, unspecified COPD type (HCC) (J44.9) - No current exacerbation; lung auscultation reveals clear breath sounds. - Continue current management. 3. Multiple thyroid nodules (E04.2) - History of thyroid nodule excision approximately three years ago; additional nodules noted at that time. - Ordered thyroid ultrasound to assess current status of nodules. 4. Gastroesophageal reflux disease with esophagitis without hemorrhage (K21.00) - Managed with Nexium 40 mg BID; occasionally requires Tums for breakthrough symptoms. - Discussed potential for esophageal stricture or Zenker's diverticulum contributing to dysphagia episodes. - Educated on dietary modifications: avoid large meals, chew food thoroughly, and maintain upright position for at least two hours postprandially. - Recommended elevating head of bed by 2-4 inches or using a wedge pillow to reduce nocturnal reflux. - Monitor for recurrent dysphagia episodes; consider referral for esophagogastroduodenoscopy (EGD) if symptoms persist. 5. Hyperlipidemia, unspecified hyperlipidemia type (E78.5) - Continue current lipid-lowering therapy. 6. Hyperglycemia (R73.9) - No current issues reported. - Continue monitoring blood glucose levels. 7. Osteopenia, unspecified location (M85.80) - Continue current management. 8. Overflow incontinence (N39.490) - Currently taking solifenacin 5 mg, half tablet daily. - Advised to increase dosage to one full tablet (10 mg) daily to improve symptom control. 9. Hypokalemia (E87.6) - Recent labs show potassium slightly below normal range. - Advised increasing dietary intake of potassium-rich foods such as tomatoes, bananas, and potato skins. - Recheck serum electrolytes, including potassium and sodium levels. 10. Fatigue, unspecified type (R53.83) - Persistent fatigue with no significant weight loss, fever, or chills. - Ordered thyroid function tests to rule out hypothyroidism as a contributing factor. - Monitor symptoms; follow-up as needed. Discussed treatment plan and patient voices understanding. Patient's questions answered appropriately. Medications and potential side effects were discussed and patient voices understanding. Return to the office as scheduled or as needed for worsening/no improvement. Nadia Brambila APRN.STUDY LEAD documented in this encounter [facility] 01-21-2025 Note HNO ID: [id number] Author: EVE DUBON LPN Service: ? Author Type: LICENSED NURSE Type: Progress Notes Filed: 01/21/2025 10:52 Note Text: { [facility] 01-21-2025 Note HNO ID: [id number] Author: BANG PLUMMER JR, MD Service: ? Author Type: Physician Type: Progress Notes Filed: 01/21/2025 10:52 Note Text: ESTABLISHED PATIENT VISIT CHIEF COMPLAINT: Follow Up HISTORY OF PRESENT ILLNESS: Marshall Wu is a 89 year old female, with a PMH significant for and per last office visit of 07/16/24: 1. Restless leg - ICD9: 333.94, ICD10: G25.81 (primary diagnosis) Stable with Requip 1mg and magnesium supplement at bedtime. Patient not wanting to make changes to current medication regimen. She is aware of risks of augmentation with Requip use. Refills provided. Regarding Fe supplement, both Fe and Ferritin improved on most recent levels in 03/2024. Recommended patient reduce supplement to 1 tab of FeSO4 325mg daily. 2. History of iron deficiency - ICD9: V12.3, ICD10: Z86.39 As above. 3. Peripheral polyneuropathy - ICD9: 356.9, ICD10: G62.9 Exam stable and consistent with peripheral polyneuropathy. Etiology still unknown with extensive workup showing no obvious cause, although glucose has bee increasing. Patient not wanting to try higher dose of gabapentin. Pt feels symptoms of discomfort not significant so as to need medication. Discussed options including gabapentin and lyrica. Will reevaluate in 6 months or sooner prn. Still actively playing golf. Following with PCP for recent bout of feeling tired - started on golf course. Recent labs show mild hyponatremia. States eating well. Drinking plenty of fluids. No diarrhea. I think age is catching up with me. Feels RLS is stable on Requip 1mg daily and uses the prn 0.5mg every now and then - estimates maybe once per week. States neuropathy is not causing any pain, but just an odd feeling. That said, pt emphasizes she would not want additional meds. Does best if walking flat surface - a bit unsteady onage. No longer on Fe supplements - does not feel it made RLS worse since stopping. REVIEW OF SYSTEMS GENERAL:No weight loss, malaise or fevers. HEENT:Negative for frequent or significant headaches, No changes in hearing or vision, no nose bleeds or other nasal problems NECK:Negative for lumps, goiter, pain and significant neck swelling RESPIRATORY: Negative for cough, wheezing or shortness of breath. CARDIOVASCULAR: Negative for chest pain, leg swelling or palpitations. GASTROINTESTINAL: Negative for abdominal discomfort, blood in stools or black stools or change in bowel habits GENITOURINARY: No history of dysuria, frequency or incontinence MUSCULOSKELETAL: Negative for joint pain or swelling, back pain or muscle pain. NEUROLOGIC:Negative for focal numbness or weakness, headaches and dizziness or syncope, vision changes, speech/languag changes - EXCEPT that as per HPI above. SKIN:Negative for lesions, rash, and itching. LAB/IMAGING: Those performed since patient's last visit have been reviewed. WBC (k/uL) Date Value 01/17/2025 5.71 RBC (m/uL) Date Value 01/17/2025 4.54 Hemoglobin (g/dL) Date Value 01/17/2025 13.4 Hematocrit (%) Date Value 01/17/2025 41.1 MCV (fL) Date Value 01/17/2025 90.5 MCH (pg) Date Value 01/17/2025 29.5 MCHC (g/dL) Date Value 01/17/2025 32.6 RDW-CV (%) Date Value 01/17/2025 13.6 Platelet Count (k/uL) Date Value 01/17/2025 319 MPV (fL) Date Value 01/17/2025 10.3 Glucose (mg/dL) Date Value 01/17/2025 132 (H) BUN (mg/dL) Date Value 01/17/2025 13 Creatinine (mg/dL) Date Value 01/17/2025 0.64 Sodium (mmol/L) Date Value 01/17/2025 131 (L) Potassium (mmol/L) Date Value 01/17/2025 3.6 (L) Chloride (mmol/L) Date Value 01/17/2025 95 (L) CO2 (mmol/L) Date Value 01/17/2025 25 Protein, Total (g/dL) Date Value 01/17/2025 6.6 Albumin (g/dL) Date Value 01/17/2025 4.0 Calcium, Total (mg/dL) Date Value 01/17/2025 9.3 Alkaline Phosphatase (U/L) Date Value 01/17/2025 124 (H) Bilirubin, Total (mg/dL) Date Value 01/17/2025 0.3 AST (U/L) Date Value 01/17/2025 12 (L) ALT (U/L) Date Value 01/17/2025 9 [place] (no units) Date Value 01/10/2024 Positive (A) SSA Antibody IgG (AI) Date Value 01/10/2024 <0.2 SSB Antibody (AI) Date Value 01/10/2024 <0.2 URINALYSIS SSA Antibody IgG Date Value Ref Range Status 01/10/2024 <0.2 <1.0 AI Final Comment: Test Methodology: Multiplex flow immunoassay. Latest Reference Range AND Units 03/29/24 12:06 Ferritin 14.7 - 205.1 ng/mL 92.1 Iron 41 - 186 ug/dL 81 TIBC 232 - 386 ug/dL 239 Transferrin Saturation 15.0 - 57.0 % 33.9 MEDICATIONS: hydroCHLOROthiazide 12.5 mg capsule Take 1 capsule by mouth once daily. solifenacin 10 mg tablet Take 0.5 tablets by mouth once daily. rOPINIRole (REQUIP) 0.5 mg tablet Take 1 tablet by mouth at bedtime as needed (RLS). budesonide-formoterol (SYMBICORT) 160-4.5 mcg/actuation inhaler Inhale 2 Puffs as instructed two times a day. rOPINIRole (REQUIP) 1 mg tablet Take 1 tablet by mouth daily at (more content not included)... [facility] 01-21-2025 History of Present illness Narrative { ESTABLISHED PATIENT VISIT CHIEF COMPLAINT: Follow Up HISTORY OF PRESENT ILLNESS: Marshall Wu is a 89 year old female, with a PMH significant for and per last office visit of 07/16/24: 1. Restless leg - ICD9: 333.94, ICD10: G25.81 (primary diagnosis) Stable with Requip 1mg and magnesium supplement at bedtime. Patient not wanting to make changes to current medication regimen. She is aware of risks of augmentation with Requip use. Refills provided. Regarding Fe supplement, both Fe and Ferritin improved on most recent levels in 03/2024. Recommended patient reduce supplement to 1 tab of FeSO4 325mg daily. 2. History of iron deficiency - ICD9: V12.3, ICD10: Z86.39 As above. 3. Peripheral polyneuropathy - ICD9: 356.9, ICD10: G62.9 Exam stable and consistent with peripheral polyneuropathy. Etiology still unknown with extensive workup showing no obvious cause, although glucose has bee increasing. Patient not wanting to try higher dose of gabapentin. Pt feels symptoms of discomfort not significant so as to need medication. Discussed options including gabapentin and lyrica. Will reevaluate in 6 months or sooner prn. Still actively playing golf. Following with PCP for recent bout of feeling tired - started on golf course. Recent labs show mild hyponatremia. States eating well. Drinking plenty of fluids. No diarrhea. I think age is catching up with me. Feels RLS is stable on Requip 1mg daily and uses the prn 0.5mg every now and then - estimates maybe once per week. States neuropathy is not causing any pain, but just an odd feeling. That said, pt emphasizes she would not want additional meds. Does best if walking flat surface - a bit unsteady on age. No longer on Fe supplements - does not feel it made RLS worse since stopping. REVIEW OF SYSTEMS GENERAL:No weight loss, malaise or fevers. HEENT:Negative for frequent or significant headaches, No changes in hearing or vision, no nose bleeds or other nasal problems NECK:Negative for lumps, goiter, pain and significant neck swelling RESPIRATORY: Negative for cough, wheezing or shortness of breath. CARDIOVASCULAR: Negative for chest pain, leg swelling or palpitations. GASTROINTESTINAL: Negative for abdominal discomfort, blood in stools or black stools or change in bowel habits GENITOURINARY: No history of dysuria, frequency or incontinence MUSCULOSKELETAL: Negative for joint pain or swelling, back pain or muscle pain. NEUROLOGIC:Negative for focal numbness or weakness, headaches and dizziness or syncope, vision changes, speech/languag changes - EXCEPT that as per HPI above. SKIN:Negative for lesions, rash, and itching. LAB/IMAGING: Those performed since patient's last visit have been reviewed. WBC (k/uL) Date Value 01/17/2025 5.71 RBC (m/uL) Date Value 01/17/2025 4.54 Hemoglobin (g/dL) Date Value 01/17/2025 13.4 Hematocrit (%) Date Value 01/17/2025 41.1 MCV (fL) Date Value 01/17/2025 90.5 MCH (pg) Date Value 01/17/2025 29.5 MCHC (g/dL) Date Value 01/17/2025 32.6 RDW-CV (%) Date Value 01/17/2025 13.6 Platelet Count (k/uL) Date Value 01/17/2025 319 MPV (fL) Date Value 01/17/2025 10.3 Glucose (mg/dL) Date Value 01/17/2025 132 (H) BUN (mg/dL) Date Value 01/17/2025 13 Creatinine (mg/dL) Date Value 01/17/2025 0.64 Sodium (mmol/L) Date Value 01/17/2025 131 (L) Potassium (mmol/L) Date Value 01/17/2025 3.6 (L) Chloride (mmol/L) Date Value 01/17/2025 95 (L) CO2 (mmol/L) Date Value 01/17/2025 25 Protein, Total (g/dL) Date Value 01/17/2025 6.6 Albumin (g/dL) Date Value 01/17/2025 4.0 Calcium, Total (mg/dL) Date Value 01/17/2025 9.3 Alkaline Phosphatase (U/L) Date Value 01/17/2025 124 (H) Bilirubin, Total (mg/dL) Date Value 01/17/2025 0.3 AST (U/L) Date Value 01/17/2025 12 (L) ALT (U/L) Date Value 01/17/2025 9 [place] (no units) Date Value 01/10/2024 Positive (A) SSA Antibody IgG (AI) Date Value 01/10/2024 <0.2 SSB Antibody (AI) Date Value 01/10/2024 <0.2 URINALYSIS SSA Antibody IgG Date Value Ref Range Status 01/10/2024 <0.2 <1.0 AI Final Comment: Test Methodology: Multiplex flow immunoassay. Latest Reference Range & Units 03/29/24 12:06 Ferritin 14.7 - 205.1 ng/mL 92.1 Iron 41 - 186 ug/dL 81 TIBC 232 - 386 ug/dL 239 Transferrin Saturation 15.0 - 57.0 % 33.9 MEDICATIONS: hydroCHLOROthiazide 12.5 mg capsule Take 1 capsule by mouth once daily. solifenacin 10 mg tablet Take 0.5 tablets by mouth once daily. rOPINIRole (REQUIP) 0.5 mg tablet Take 1 tablet by mouth at bedtime as needed (RLS). budesonide-formoterol (SYMBICORT) 160-4.5 mcg/actuation inhaler Inhale 2 Puffs as instructed two times a day. rOPINIRole (REQUIP) 1 mg tablet Take 1 tablet by mouth daily at bedtime. lisinopril (ZESTRIL) 30 mg tablet Take 1 tablet by mouth once daily. atorvastatin (LIPITOR) 20 mg tablet TAKE 1 TABLET DAILY AT BEDTIME FOR CHOLESTEROL MAGNESIUM ORAL Take by mouth. ESOMEPRAZOLE MAGNESIUM (NEXIUM 24HR ORAL) Take by mouth. HISTORIES PAST MEDICAL HISTORY Diagnosis Date Aortic sclerosis 2012 Found on echo Arthritis of foot Bilateral heel spurs. 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 FAMILY HISTORY Problem Relation Age of Onset Alzheimer's Disease Mother Arthritis Father Stroke Father Breast Cancer Maternal Aunt other (lung cancer) Maternal Aunt Prostate Cancer Son Stroke Other Fatal. Brother in law. SOCIAL HISTORY Social History Tobacco Use Smoking status: Former Current packs/day: 0.00 Average packs/day: 1.3 packs/day for 32.0 years (41.7 ttl pk-yrs) Types: Cigarettes Start date: 03/10/1955 Quit date: 07/14/1986 Years since quittin.5 Smokeless tobacco: Never Tobacco comments: Parents did not smoke in childhood home. Spouse non smoker. Vaping Use Vaping status: Never Used Substance Use Topics Alcohol use: Yes Comment: Occasional. Drug use: No PHYSICAL EXAMINATION Blood pressure 138/74, pulse 88, resp. rate 16, weight 68.5 kg (151 lb), SpO2 96%. GENERAL EXAM: General appearance: NAD, pleasant. HEENT: NC/AT, nasal congestion absent, no oral lesions, membranes moist. NECK: No masses, supple. Lungs: CTA bilaterally. CV: RRR nl S1, S2 Extr: No cyanosis, clubbing or edema. Skin: Cool to touch. NEUROLOGICAL EXAM: General: Awake, alert, oriented x3 (person,place,time), fluent, no dysarthria; comprehension, naming, repetition intact. CN: PERRL,, EOMI and without nystagmus, VFF to confrontation, facial sensation and strength are normal and symmetric except for chronic asymmetry associated with prior surgery of L mouth, hearing is intact to finger rub bilaterally, palate and tongue movements are intact and symmetric. SCM and trapezius strength normal. Motor: Normal tone, bulk and strength (5/5) bilaterally (throughout extremities x4) except minor weakness on L triceps - chronic per patient and relates to prior shoulder surgery - having some shoulder pain with arthritis. Coordination: FNF, CASSIUS, HTS intact. No tremors. Sensation: Vib and temp diminished distal to knees vitor in stocking pattern. Unchanged. Gait: Narrow based and stable with normal stride and arm swing. Assessment and Plan: ASSESSMENT/PLAN: 1. Peripheral polyneuropathy - ICD9: 356.9, ICD10: G62.9 (primary diagnosis) Stable on exam. Patient not feeling that discomfort is limiting daily activities and would prefer to take no additional meds at thsi time. Will continue to monitor. 2. Restless leg - ICD9: 333.94, ICD10: G25.81 Stable per subjective history. No s/s to suggest augmentation (pt knows risks). Will for now continue Reqiup 1.0mg at bedtime with additional 0.5mg tablet prn (rarely uses). Refills provided. 3. History of iron deficiency - ICD9: V12.3, ICD10: Z86.39 No longer taking supplement per rec of PCP. After stopping, RLS did not worsen. Encouraged follow up with PCP. Encouraged pt follow up with PCP regarding abnormal labs (ordered by PCP) including low N+a and K+. Bang Plummer MD I spent a total of 30 minutes on the date of the service which included preparing to see the patient, [id number] patient care, completing clinical documentation, obtaining and/or reviewing separately obtained history, performing a medically appropriate examination, counseling and educating the patient/family/caregiver, ordering medications, tests, or procedures, and communicating results to the patient/family/caregiver. PDMP website checked and validated. All prescriptions have been APPROPRIATELY filled. No suspicious activity was identified. 01/21/2025 by Bang Plummer MD Medical Decision Making: Problems: Moderate: 2+ stable chronic illnesses Data: Unique test result(s) reviewed: 1 Risk: Moderate: Drug management Medical Decision Making Level: 4 - Moderate documented in this encounter [facility] 01-19-2025 History of Present illness Narrative Images from the original note were not included. DATE OF SERVICE: 01/19/2025 PATIENT NAME: Marshall Wu : 1935 AGE: 89 y.o. CLINIC NUMBER: [id number] Visit type: Established patient Chief Complaint Patient presents with Skin Check YVROSE-05/12/2024,ZB Subjective HISTORY OF PRESENT ILLNESS: This is a 89 y.o. female who presents for an upper body exam; last seen 05/12/2024. 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 The patient has no family history of skin cancer, no family history of melanoma, there is a history of excessive sun exposure, patient has never used tanning beds, does not use sunscreen regularly. 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 Patient was also given efudex to left jehovah's witness. Patient states she did get prescribed efudex. Admits redness, Patient does believe that the areas have resolved. C/o-skin lesion located on the left forearm x couple months Patient states the lesions a are pink raised areas Denies itching, bleeding, pain. Denies changes in size, shape, color. Denies previous treatment. History of pacemaker/ defibrillator? No History of HIV/ Hep C? No Allergies to Lidocaine, Epinephrine, Latex or Adhesive? No Review of Systems Vitals: 01/19/25 1104 BP: 137/75 Pulse: 76 Temp: 36.6 C (97.8 F) PHYSICAL EXAM GENERAL APPEARANCE:?Alert & oriented x3, pleasant. Well developed, well nourished. PSYCH: appropriate mood and affect DERMATOLOGY: Please see diagram of patient examination (all noted lesions were examined dermoscopically; all measured lesions are pigmented macules with benign nevus patterns, unless otherwise noted) Skin Exam 1. NEOPLASM OF UNCERTAIN BEHAVIOR OF SKIN (2) Left Forearm - Posterior 4mm keratotic papule/cutaneous horn Skin Biopsy Type of biopsy: tangential Informed consent: discussed and consent obtained Timeout: patient name, date of , surgical site, and procedure verified Anesthesia: the lesion was anesthetized in a standard fashion Anesthetic: 1% lidocaine w/ epinephrine 1-100,000 buffered w/ 8.4% NaHCO3 Instrument used: DermaBlade Outcome: patient tolerated procedure well Post-procedure details: wound care instructions given Specimen A - Tissue exam Differential Diagnosis: Cutaneous horn R/O SCC Check Margins: No Right Upper Arm - Posterior 3mm keratotic papule/cutaneous horn Skin Biopsy Type of biopsy: tangential Informed consent: discussed and consent obtained Timeout: patient name, date of , surgical site, and procedure verified Anesthesia: the lesion was anesthetized in a standard fashion Anesthetic: 1% lidocaine w/ epinephrine 1-100,000 buffered w/ 8.4% NaHCO3 Instrument used: DermaBlade Outcome: patient tolerated procedure well Post-procedure details: wound care instructions given Specimen B - Tissue exam Differential Diagnosis: Cutaneous horn R/O SCC Check Margins: No Biopsy recommended. Patient expresses understanding and is in agreement with the plan. Biopsy (x2) obtained today. Patient educated that we will call with the biopsy results within 2 weeks. Care instructions reviewed and written instructions provided to patient. 2. ACTINIC KERATOSES (5) Left Elbow, Right Mu-Ism (4) [place] scaly papules Patient educated on actinic keratosis and the possibility of transformation into SCC. Treatment options are discussed with risks and benefits reviewed. Cryotherapy is agreed upon and performed. Reassured that redness, swelling and the formation of a blister at the site of cryotherapy are possible reactions. After care instructions are given and reviewed. Patient to apply Vaseline to treated sites while healing. Patient to monitor for resolution. If unresolved after 2-3 months, patient to return for further evaluation and management Cryotherapy Actinic Keratosis: Medical Necessity: It was explained to the patient that actinic keratoses are precancerous. Consent: The patient understood all the risks and benefits prior to treatment. The risks explained included scarring, hyper and/or hypopigmentation. Although this treatment is highly effective, recurrences do occur and this was explained to the patient. The patient further understood that these lesions are precancerous and may develop into a malignancy. Method: Liquid nitrogen was used to treat the lesion(s) with two freeze-thaw cycles. Number of lesions treated/ location: R jehovah's witness x 4, L elbow x1. Post-op: The patient was instructed to clean the site normally twice a day. Signs of infection were reviewed and patient was instructed to call if he/ she develops increasing pain, purulent drainage, or beefy redness. The patient was informed that a blister may occur at the cryo site and that this is an expected event. Sun protection was reviewed and patient advised to use sunscreen with SPF 30 or greater on exposed skin when outdoors. Post-op instructions were given orally and in writing. Cryotherapy, skin lesion - Left Elbow, Right Mu-Ism (4) 3. SEBORRHEIC KERATOSIS (2) Generalized, Head - Anterior (Face) [place]-brown waxy papules, left neck, chest, back [x]Chronic []Acute [x]Stable []Flaring/Exacerbation Reassured that this is a benign lesion and does not require any treatment. Educated that if the lesion changes color, becomes larger, bleeds, becomes bothersome or painful then it should be reevaluated. Patient expresses understanding and is agreeable to plan. 4. HISTORY OF MELANOMA Generalized No evidence of recurrence on exam today; no adenopathy [x]Chronic []Acute [x]Stable []Flaring/Exacerbation Patient advised to perform monthly skin exams; checking the skin for any new or changing lesions. Any lesions that are new, elevated, firm and/or growing should be evaluated in our office. Also look for ABCDEs of Melanoma (warning signs): Asymmetry- the appearance of one side of the mole doesn't look like the other side. Borders- the borders of the mole are jagged, notched or smeared. Color- there are multiple colors in the mole, or it has changed colors. It can become darker, red or even lose pigment. Diameter- diameter greater than 6mm or the size of a pencil eraser. Evolution- Any change or evolving in size, shape or color of a mole. Also, any new symptom like bleeding, pain or itching may be a warning sign. Sunscreen Use & Sun Safety It is recommended a water-resistant, broad-spectrum sunscreen with SPF of at least 15 to 30. Apply sunscreen to all exposed skin 30 minutes before sun exposure, and then every 2 hours. Apply sooner if sweating or coming out of pool/water. Using the proper amount of sunscreen in important. An adult should use about 1-1.5 oz of sunscreen to the entire body, about 2-3 tablespoons per application. Limit time in the sun, especially between 10 AM and 2 PM when the sun s rays are the strongest. Clothing labeled with a UPF (ultra-charly protection factor) rating indicates that it s protective against UV rays. Also, wear wide-brimmed hats, and sunglasses for sun protection. 5. HISTORY OF ATYPICAL NEVUS Generalized No evidence of recurrence on exam today. [x]Chronic []Acute [x]Stable []Flaring/Exacerbation Educated on etiology and signs of atypical nevi, treatment, risk of malignant transformation, and importance of sun protection. Signs of skin cancer/ABCDE's of melanoma reviewed. Recommended monthly self skin exams and annual full skin exams. 6. HISTORY OF NONMELANOMA SKIN CANCER Generalized No evidence of recurrence on exam today. [x]Chronic []Acute [x]Stable []Flaring/Exacerbation Educated on signs of skin cancer, skin cancer causes, prevention, and risk of developing skin cancers in the future. Sun protection measures reviewed, recommended monthly self skin exams and annual full skin exam. Follow up in about 6 months (around 07/22/2025). Lora Santiago MD 01/19/25 7:36 AM REFERRING MD: documented in this encounter [facility] 01-19-2025 Instructions Lora Santiago MD - 01/19/2025 11:00 AM EDT documented in this encounter [facility] 01-17-2025 Instructions Nadia Brambila APRN.STUDY LEAD - 01/17/2025 9:30 AM EDT - On days you play golf or spend prolonged time in hot weather, skip your hydrochlorothiazide dose to help prevent low blood pressure. - Continue your [id number] omeprazole (Nexium) -- one tablet in the morning and one at dinner -- for your reflux. - Continue taking your cholesterol medicine every other day as you ve been doing. - Blood was drawn today to check your magnesium level, kidney function, and complete blood count. - Expect a phone call tomorrow with your lab results and recommendations for adjusting your reflux treatment. documented in this encounter [facility] 01-17-2025 Note HNO ID: [id number] Author: NADIA BRAMBILA APRN.CNP Service: ? Author Type: Nurse Practitioner Type: Progress Notes Filed: 01/17/2025 09:30 Note Text: This is a 89 year old female who presents today with: Patient presents with: 6 Month Exam HISTORY OF PRESENT ILLNESS: Marshall Wu is a 89 year old female. Patient presents with: 6 Month Exam Marshall Wu is an 89-year-old female with a history of COPD, presenting for evaluation of fatigue, GERD, and edema. Fatigue: - Onset since Friday. - Denies fever, chills, headaches, blurred vision, or weight loss. - Decreased appetite attributed to hot weather. - Denies nausea, emesis, or dizziness. - Denies chest pain. - Denies orthopnea. - Denies anhedonia or feelings of depression or hopelessness. GERD: - Increased symptoms recently, including acid indigestion and heartburn. - Symptoms occur in the morning and at night; denies eating before bed. - Denies waking up with a bad taste in the mouth; reports dry mouth due to sleeping with mouth open. - Taking OTC Nexium BID (morning and dinner). - Denies cough or wheezing. Edema: - Marshall noted swelling in the left ankle. - Marshall has a scar on the left ankle from a previous injury. PAST MEDICAL HISTORY: PAST MEDICAL HISTORY Diagnosis Date Aortic sclerosis 2012 Found on echo Arthritis of foot Bilateral heel spurs. 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 rOPINIRole (REQUIP) 0.5 mg tablet Take 1 tablet by mouth at bedtime as needed (RLS). budesonide-formoterol (SYMBICORT) 160-4.5 mcg/actuation inhaler Inhale 2 Puffs as instructed two times a day. rOPINIRole (REQUIP) 1 mg tablet Take 1 tablet by mouth daily at bedtime. lisinopril (ZESTRIL) 30 mg tablet Take 1 tablet by mouth once daily. atorvastatin (LIPITOR) 20 mg tablet TAKE 1 TABLET DAILY AT BEDTIME FOR CHOLESTEROL MAGNESIUM ORAL Take by mouth. hydroCHLOROthiazide 12.5 mg capsule Take 1 capsule by mouth once daily. ESOMEPRAZOLE MAGNESIUM (NEXIUM 24HR ORAL) Take by mouth. No current facility-administered medications for this visit. FAMILY HISTORY Problem Relation Age of Onset Alzheimer's Disease Mother Arthritis Father Stroke Father Breast Cancer Maternal Aunt other (lung cancer) Maternal Aunt Prostate Cancer Son Stroke Other Fatal. Brother in law. Social History Tobacco Use Smoking status: Former Current packs/day: 0.00 Average packs/day: 1.3 packs/day for 32.0 years (41.7 ttl pk-yrs) Types: Cigarettes Start date: 03/10/1955 Quit date: 07/14/1986 Years since quittin.5 Smokeless tobacco: Never Tobacco comments: Parents did not smoke in childhood home. Spouse non smoker. Vaping Use Vaping status: Never Used Substance Use Topics Alcohol use: Yes Comment: Occasional. Drug use: No REVIEW OF SYSTEMS Constitutional: (+) malaise, (+) fatigue, (-) fever, (-) chills, (-) weight loss Head: (-) headache Eyes: (-) blurred vision Ears/Nose/Mouth/Throat: (+) rhinorrhea, (+) dry mouth, (-) dysgeusia Cardiovascular: (+) palpitations, (+) left ankle swelling Respiratory: (-) shortness of breath, (-) cough, (-) wheezing Gastrointestinal: (+) heartburn, (+) decreased appetite, (-) nausea, (-) vomiting Neurological: (-) dizziness EXAM: BP 138/64 Pulse 85 Wt 69.4 kg (153 lb) SpO2 97% BMI 27.10 kg/m? PHYSICAL EXAM: GENERAL: NAD, alert and oriented SKIN: Unremarkable, no rash or skin lesions. Scar on left medial ankle. NOSE/SINUSES: Nares normal. Septum midline. Mild swelling noted, suggestive of allergies. OROPHARYNX: Lips, mucosa, and tongue normal, good dentition. Mild erythema noted in the oropharynx. NECK: Supple, no lymphadenopathy, normal thyroid, no carotid bruits. LUNGS: Clear to auscultation bilaterally, no wheezes/rhonchi/rales. HEART: Regular rate and rhythm, no murmurs. No ectopy. EXTREMITIES: No deformities, no skin discoloration. Mild edema noted in the left ankle, no redness. NEURO: Awake, alert and oriented x3, cranial nerves II-XII grossly (more content not included)... [facility] 01-17-2025 History of Present illness Narrative This is a 89 year old female who presents today with: Patient presents with: 6 Month Exam HISTORY OF PRESENT ILLNESS: Marshall Wu is a 89 year old female. Patient presents with: 6 Month Exam Marshall Wu is an 89-year-old female with a history of COPD, presenting for evaluation of fatigue, GERD, and edema. Fatigue: - Onset since Friday. - Denies fever, chills, headaches, blurred vision, or weight loss. - Decreased appetite attributed to hot weather. - Denies nausea, emesis, or dizziness. - Denies chest pain. - Denies orthopnea. - Denies anhedonia or feelings of depression or hopelessness. GERD: - Increased symptoms recently, including acid indigestion and heartburn. - Symptoms occur in the morning and at night; denies eating before bed. - Denies waking up with a bad taste in the mouth; reports dry mouth due to sleeping with mouth open. - Taking OTC Nexium BID (morning and dinner). - Denies cough or wheezing. Edema: - Marshall noted swelling in the left ankle. - Marshall has a scar on the left ankle from a previous injury. PAST MEDICAL HISTORY: PAST MEDICAL HISTORY Diagnosis Date Aortic sclerosis 2012 Found on echo Arthritis of foot Bilateral heel spurs. 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 rOPINIRole (REQUIP) 0.5 mg tablet Take 1 tablet by mouth at bedtime as needed (RLS). budesonide-formoterol (SYMBICORT) 160-4.5 mcg/actuation inhaler Inhale 2 Puffs as instructed two times a day. rOPINIRole (REQUIP) 1 mg tablet Take 1 tablet by mouth daily at bedtime. lisinopril (ZESTRIL) 30 mg tablet Take 1 tablet by mouth once daily. atorvastatin (LIPITOR) 20 mg tablet TAKE 1 TABLET DAILY AT BEDTIME FOR CHOLESTEROL MAGNESIUM ORAL Take by mouth. hydroCHLOROthiazide 12.5 mg capsule Take 1 capsule by mouth once daily. ESOMEPRAZOLE MAGNESIUM (NEXIUM 24HR ORAL) Take by mouth. No current facility-administered medications for this visit. FAMILY HISTORY Problem Relation Age of Onset Alzheimer's Disease Mother Arthritis Father Stroke Father Breast Cancer Maternal Aunt other (lung cancer) Maternal Aunt Prostate Cancer Son Stroke Other Fatal. Brother in law. Social History Tobacco Use Smoking status: Former Current packs/day: 0.00 Average packs/day: 1.3 packs/day for 32.0 years (41.7 ttl pk-yrs) Types: Cigarettes Start date: 03/10/1955 Quit date: 07/14/1986 Years since quittin.5 Smokeless tobacco: Never Tobacco comments: Parents did not smoke in childhood home. Spouse non smoker. Vaping Use Vaping status: Never Used Substance Use Topics Alcohol use: Yes Comment: Occasional. Drug use: No REVIEW OF SYSTEMS Constitutional: (+) malaise, (+) fatigue, (-) fever, (-) chills, (-) weight loss Head: (-) headache Eyes: (-) blurred vision Ears/Nose/Mouth/Throat: (+) rhinorrhea, (+) dry mouth, (-) dysgeusia Cardiovascular: (+) palpitations, (+) left ankle swelling Respiratory: (-) shortness of breath, (-) cough, (-) wheezing Gastrointestinal: (+) heartburn, (+) decreased appetite, (-) nausea, (-) vomiting Neurological: (-) dizziness EXAM: BP 138/64 Pulse 85 Wt 69.4 kg (153 lb) SpO2 97% BMI 27.10 kg/m PHYSICAL EXAM: GENERAL: NAD, alert and oriented SKIN: Unremarkable, no rash or skin lesions. Scar on left medial ankle. NOSE/SINUSES: Nares normal. Septum midline. Mild swelling noted, suggestive of allergies. OROPHARYNX: Lips, mucosa, and tongue normal, good dentition. Mild erythema noted in the oropharynx. NECK: Supple, no lymphadenopathy, normal thyroid, no carotid bruits. LUNGS: Clear to auscultation bilaterally, no wheezes/rhonchi/rales. HEART: Regular rate and rhythm, no murmurs. No ectopy. EXTREMITIES: No deformities, no skin discoloration. Mild edema noted in the left ankle, no redness. NEURO: Awake, alert and oriented x3, cranial nerves II-XII grossly intact, normal gait, no involuntary motions LABS: check labs ASSESSMENT/PLAN: 1. Essential hypertension (I10) - Blood pressure may be affected by hot weather and physical activity; advised to hold hydrochlorothiazide on hot days when golfing. 2. Gastroesophageal reflux disease without esophagitis (K21.9) - Symptoms include heartburn and reflux, particularly in the morning and at night. - Currently taking [id number] Nexium (esomeprazole) 20 mg BID. Check labs before recommendations. - Physical exam reveals mild erythema in the oropharynx. - Ordered BMP to assess kidney function before making further adjustments to GERD management. - Will follow up with lab results tomorrow to discuss potential changes in treatment. 3. Fatigue, unspecified type (R53.83) - Experiencing fatigue, possibly related to hot weather and decreased activity. - Ordered CBC, CMP and magnesium levels to rule out underlying causes. 4. Screening for depression (Z13.31) 5. Encounter for screening examination for other mental health and behavioral disorders (Z13.39) - No signs of depression or hopelessness; attributes low energy to hot weather. Discussed treatment plan and patient voices understanding. Patient's questions answered appropriately. Medications and potential side effects were discussed and patient voices understanding. Return to the office as scheduled or as needed for worsening/no improvement. Nadia Brambila APRN.STUDY LEAD documented in this encounter [facility] 01-11-2025 Note Patient Outreach (IN [facility]) ---- MARSHALL WU ([id number]) 1935 F Date Time Provider Department 01/11/25 NADIA BRAMBILA During your visit today, we recorded the following information about you: Allergies As of Date: 01/11/2025 Noted Allergy Reaction CIPROFLOXACIN 03/14/2019 14 - Other: See Comments Comments: Ankle and achilles pain SEASONAL ALLERGIES 12/19/2016 5 - Intolerance Date Reviewed: 12/30/2024 Reviewed by: Angelika Chavez MD - Fully Assessed Visit Diagnoses:Essential hypertension, benign [I10] Hyperlipidemia [E78.5] Prescriptions as of 01/14/2025 - solifenacin 10 mg tablet Take 0.5 tablets by mouth once daily. - rOPINIRole (REQUIP) 0.5 mg tablet Take 1 tablet by mouth at bedtime as needed (RLS). - budesonide-formoterol (SYMBICORT) 160-4.5 mcg/actuation inhaler Inhale 2 Puffs as instructed two times a day. - rOPINIRole (REQUIP) 1 mg tablet Take 1 tablet by mouth daily at bedtime. - lisinopril (ZESTRIL) 30 mg tablet Take 1 tablet by mouth once daily. - atorvastatin (LIPITOR) 20 mg tablet TAKE 1 TABLET DAILY AT BEDTIME FOR CHOLESTEROL - MAGNESIUM ORAL Take by mouth. - hydroCHLOROthiazide 12.5 mg capsule Take 1 capsule by mouth once daily. - ESOMEPRAZOLE MAGNESIUM (NEXIUM 24HR ORAL) Take by mouth. 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 . [facility] [place] Note Patient name: Marshall Wu PCP: Nadia Brambila APRN.STUDY LEAD CC: Follow-up COPD HPI: Marshall Wu 89 year old female former 40 pack year smoker, quitting in 1986 with PMH significant for mild COPD, mild pulmonary hypertension, HTN, GERD, HLD, melanoma, breast cancer. Current therapy consists of Symbicort and as needed albuterol. Overall she states she has been doing fairly well. She has noted less endurance and more dyspnea with exertion. She has been participating in physical therapy for balance issues related to neuropathy. No recent upper respiratory infection nor hospitalization. No need for her albuterol. She denies any wheezing, chest pain or cough with mucus production. DATA: PFT 06/2024: Pulmonary function test show obstruction. FEV1 just below cutoff of 70% to classify as mild obstruction COPD Assessment Test I never cough 0 1 2 3 4 5 I cough all the time; Score 1 I have no phlegm 0 1 2 3 4 5 My chest is completely full of phlegm; Score 1 My chest does not feel tight at all 0 1 2 3 4 5 My chest chest feels very tight; Score 1 When I walk up a hill or one flight of stairs I am not breathless 0 1 2 3 4 5 When I walk up a hill or one flight or stairs I am very breathless; Score 3 I am not limited doing any activities at home 0 1 2 3 4 5 I am very limited doing activities at home; Score 4 I am confident leaving my home despite my lung condition 0 1 2 3 4 5 I am not at all confident leaving my home because of my lung condition; Score 4 I sleep soundly 0 1 2 3 4 5 don't sleep soundly because of my lungs; Score 3 I have lots of energy 0 1 2 3 4 5 I have no energy at all; Score 3 Total Score: 20 PAST MEDICAL HISTORY Diagnosis Date Aortic sclerosis 2012 Found on echo Arthritis of foot Bilateral heel spurs. 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 rOPINIRole (REQUIP) 0.5 mg tablet Take 1 tablet by mouth at bedtime as needed (RLS). budesonide-formoterol (SYMBICORT) 160-4.5 mcg/actuation inhaler Inhale 2 Puffs as instructed two times a day. rOPINIRole (REQUIP) 1 mg tablet Take 1 tablet by mouth daily at bedtime. lisinopril (ZESTRIL) 30 mg tablet Take 1 tablet by mouth once daily. atorvastatin (LIPITOR) 20 mg tablet TAKE 1 TABLET DAILY AT BEDTIME FOR CHOLESTEROL MAGNESIUM ORAL Take by mouth. hydroCHLOROthiazide 12.5 mg capsule Take 1 capsule by mouth once daily. ESOMEPRAZOLE MAGNESIUM (NEXIUM 24HR ORAL) Take by mouth. Social History Tobacco Use Smoking status: Former Current packs/day: 0.00 Average packs/day: 1.3 packs/day for 32.0 years (41.7 ttl pk-yrs) Types: Cigarettes Start date: 03/10/1955 Quit date: 07/14/1986 Years since quittin.4 Smokeless tobacco: Never Tobacco comments: Parents did not smoke in childhood home. Spouse non smoker. Vaping Use Vaping status: Never Used Substance Use Topics Alcohol use: Yes Comment: Occasional. Drug use: No FAMILY HISTORY Problem Relation Age of Onset Alzheimer's Disease Mother Arthritis Father Stroke Father Breast Cancer Maternal Aunt other (lung cancer) Maternal Aunt Prostate Cancer Son Stroke Other Fatal. Brother in law. PAST SURGICAL HISTORY Procedure Laterality Date ARTHROPLASTY GLENOHUMRL JT HEMIARTHROPLASTY Left 03/2022 Arthroplasty, shoulder BREAST LUMPECTOMY HX Right 09/13/2021 U/S guided open right breast lumpectomy COLONOSCOPY FLX DX W/COLLJ SPEC WHEN PFRMD 03/26/2007 Colonoscopy DILATION & CURETTAGE DX&/THER NONOBSTETRIC Dilation & curettage LAPAROSCOPY SURG CHOLECYSTECTOMY 1979 Cholecystectomy, lap SKIN BIOPSY HX PMH, Social history, family history and surgical history reviewed and updated in EMR REVIEW OF SYSTEMS: CONSTITUTIONAL: No fevers, chills, nightsweats, unintended weight loss HEENT: Denies nasal congestion/sinus symptoms CARDIOVASCULAR: No chest pain, palpitations, orthopnea, PND, edema. PULM: See HPI NEURO: Balance problems, neuropathy. No falls. INTEGUMENTARY: No new skin changes PHYSICAL EXAMINATION: BP 130/62 Pulse 86 Resp 17 Wt 152 lb (68.9kg) SpO2 97% General Appearance: Age-appropriate elderly female, NAD Skin: Skin color, texture, turgor normal, no suspicious rashes or lesions. Oropharynx: No oral lesions or thrush. Neck: No masses or adenopathy. Lungs: Not labored, normal to percussion, no wheezes or crackles. Heart: Regular rate and rhythm, no murmurs or gallops. Extremities: Right ankle edema, no clubbing. Assessment/Plan: 1. Moderate COPD, GOLD stage 2 - She will continue on Spiriva with as needed albuterol -If she continues to have progressive decline in her function and worsening dyspnea with exertion, would recommend change to Breztri -She will remain as active as possible and continue abstinence from tobacco 2. Former cigarette smoker -Former smoker with sequelae of COPD - Does not qualify for lung cancer screening based on age and duration of smoking cessation Angelika Chavez MD [facility] [place] documented in this encounter [facility] 12-30-2024 Note HNO ID: [id number] Author: ANGELIKA CHAVEZ MD Service: ? Author Type: Physician Type: Progress Notes Filed: 12/30/2024 12:26 Note Text: . [facility] [place] Note Patient name: Marshall Wu PCP: Nadia Brambila APRN.STUDY LEAD CC: Follow-up COPD HPI: Marshall Wu 89 year old female former 40 pack year smoker, quitting in 1986 with PMH significant for mild COPD, mild pulmonary hypertension, HTN, GERD, HLD, melanoma, breast cancer. Current therapy consists of Symbicort and as needed albuterol. Overall she states she has been doing fairly well. She has noted less endurance and more dyspnea with exertion. She has been participating in physical therapy for balance issues related to neuropathy. No recent upper respiratory infection nor hospitalization. No need for her albuterol. She denies any wheezing, chest pain or cough with mucus production. DATA: PFT 06/2024: Pulmonary function test show obstruction. FEV1 just below cutoff of 70% to classify as mild obstruction COPD Assessment Test I never cough 0 1 2 3 4 5 I cough all the time; Score 1 I have no phlegm 0 1 2 3 4 5 My chest is completely full of phlegm; Score 1 My chest does not feel tight at all 0 1 2 3 4 5 My chest chest feels very tight; Score 1 When I walk up a hill or one flight of stairs I am not breathless 0 1 2 3 4 5 When I walk up a hill or one flight or stairs I am very breathless; Score 3 I am not limited doing any activities at home 0 1 2 3 4 5 I am very limited doing activities at home; Score 4 I am confident leaving my home despite my lung condition 0 1 2 3 4 5 I am not at all confident leaving my home because of my lung condition; Score 4 I sleep soundly 0 1 2 3 4 5 don't sleep soundly because of my lungs; Score 3 I have lots of energy 0 1 2 3 4 5 I have no energy at all; Score 3 Total Score: 20 PAST MEDICAL HISTORY Diagnosis Date Aortic sclerosis 2012 Found on echo Arthritis of foot Bilateral heel spurs. 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 rOPINIRole (REQUIP) 0.5 mg tablet Take 1 tablet by mouth at bedtime as needed (RLS). budesonide-formoterol (SYMBICORT) 160-4.5 mcg/actuation inhaler Inhale 2 Puffs as instructed two times a day. rOPINIRole (REQUIP) 1 mg tablet Take 1 tablet by mouth daily at bedtime. lisinopril (ZESTRIL) 30 mg tablet Take 1 tablet by mouth once daily. atorvastatin (LIPITOR) 20 mg tablet TAKE 1 TABLET DAILY AT BEDTIME FOR CHOLESTEROL MAGNESIUM ORAL Take by mouth. hydroCHLOROthiazide 12.5 mg capsule Take 1 capsule by mouth once daily. ESOMEPRAZOLE MAGNESIUM (NEXIUM 24HR ORAL) Take by mouth. Social History Tobacco Use Smoking status: Former Current packs/day: 0.00 Average packs/day: 1.3 packs/day for 32.0 years (41.7 ttl pk-yrs) Types: Cigarettes Start date: 03/10/1955 Quit date: 07/14/1986 Years since quittin.4 Smokeless tobacco: Never Tobacco comments: Parents did not smoke in childhood home. Spouse non smoker. Vaping Use Vaping status: Never Used Substance Use Topics Alcohol use: Yes Comment: Occasional. Drug use: No FAMILY HISTORY Problem Relation Age of Onset Alzheimer's Disease Mother Arthritis Father Stroke Father Breast Cancer Maternal Aunt other (lung cancer) Maternal Aunt Prostate Cancer Son Stroke Other Fatal. Brother in law. PAST SURGICAL HISTORY Procedure Laterality Date ARTHROPLASTY GLENOHUMRL JT HEMIARTHROPLASTY Left 03/2022 Arthroplasty, shoulder BREAST LUMPECTOMY HX Right 09/13/2021 U/S guided open right breast lumpectomy COLONOSCOPY FLX DX W/COLLJ SPEC WHEN PFRMD 03/26/2007 Colonoscopy DILATION AND CURETTAGE DXAND/THER NONOBSTETRIC Dilation AND curettage LAPAROSCOPY SURG CHOLECYSTECTOMY 1979 Cholecystectomy, lap SKIN BIOPSY HX PMH, Social history, family history and surgical history reviewed and updated in EMR REVIEW OF SYSTEMS: CONSTITUTIONAL: No fevers, chills, nightsweats, unintended weight loss HEENT: Denies nasal congestion/sinus symptoms CARDIOVASCULAR: No chest pain, palpitations, orthopnea, PND, edema. PULM: See HPI NEURO: Balance problems, neuropathy. No falls. INTEGUMENTARY: No new skin changes PHYSICAL EXAMINATION: BP 130/62 Pulse 86 Resp 17 Wt 152 lb (68.9kg) SpO2 97% General Appearance: Age-appropriate elderly female, NAD Skin: Skin color, texture, turgor normal, no suspicious rashes or lesions. Oropharynx: No oral lesions or thrush. Neck: No mas (more content not included)... [facility] 12-24-2024 Telephone encounter Note Solifenacin ordered. [facility] 12-24-2024 Miscellaneous Notes Solifenacin ordered. documented in this encounter [facility] 12-13-2024 Telephone encounter Note Spoke with pharmacy and patient has active refiils. Advised that they get it ready for patient. Harika Ye MA December 13, 2024 10:19 AM [facility] 12-13-2024 Miscellaneous Notes Spoke with pharmacy and patient has active refiils. Advised that they get it ready for patient. Harika Ye MA December 13, 2024 10:19 AM Prescription Refill Information The patient has been identified by name and date of : Yes Caregiver verified no other encounters exist for this prescription request: Yes Caregiver confirmed with patient/requestor that no other refills are due, in the near future, with this provider at this time: Yes The last office visit in the department: 09/21/24 Does the patient have a future office visit with this provider/department: Yes: 01/25/25 Requested Prescriptions Pending Prescriptions Disp Refills lisinopril (ZESTRIL) 30 mg tablet 90 tablet 3 Sig: Take 1 tablet by mouth once daily. Harika Ye MA December 13, 2024 10:12 AM documented in this encounter [facility] 12-13-2024 Telephone encounter Note Prescription Refill Information The patient has been identified by name and date of : Yes Caregiver verified no other encounters exist for this prescription request: Yes Caregiver confirmed with patient/requestor that no other refills are due, in the near future, with this provider at this time: Yes The last office visit in the department: 09/21/24 Does the patient have a future office visit with this provider/department: Yes: 01/25/25 Requested Prescriptions Pending Prescriptions Disp Refills lisinopril (ZESTRIL) 30 mg tablet 90 tablet 3 Sig: Take 1 tablet by mouth once daily. Harika Ye MA December 13, 2024 10:12 AM [facility] 11-24-2024 Note HNO ID: [id number] Author: LARRY BURDICK MD Service: ? Author Type: Physician Type: Progress Notes Filed: 11/24/2024 10:40 Note Text: [facility] (ESTABLISHED PATIENT) Date: November 24, 2024 - 10:07 AM Chief Complaint: low back pain SUBJECTIVE: Marshall is an 89-year-old female presenting for follow-up of worsening lower back pain and neuropathy. Marshall reports a progressive worsening of lower back pain over the past few years. The pain is bilateral and does not radiate to the legs or upper back. She notes that the pain worsens with prolonged standing and overexertion. She has been taking methocarbamol, prescribed by her primary care physician about a month ago, but has not noticed significant improvement. She takes the medication before playing golf and does not report feeling tired from it. She also reports worsening neuropathy over the past three years, which has significantly impacted her mobility and ability to walk upright. She used to walk frequently but now finds it difficult to stand up straight and look ahead while walking. The combination of back pain and neuropathy has limited her physical activities, including playing golf, which she can only do for nine holes at a time. Despite her symptoms, she remains active and is determined to continue playing golf on her 89th birthday. She has a history of shoulder replacement surgery and has previously participated in physical therapy for balance and strength training. The pain is described as aching and is rated as 2 on a scale of 0-10. The patient Reports morning stiffness. Symptoms interfere with physical activity and walking. The pain is exacerbated by standing and walking. The pain is mitigated by sitting and heat. She is not currently receiving medications through the [facility]. She is not having difficulty with her PMC medications. The medications are effective and partially effective. REVIEW OF SYSTEMS: Constitutional: (-) Fever (-) Night Sweats (-) Weight Gain (-) Weight Loss (-) Fatigue Cardiovascular: (-) Chest Pain (-) Palpitations (-) Lightheadedness (+) Swelling of Ankles (-) Hx Heart Surgery Respiratory: (+) Shortness of Breath (-) Cough (-) Wheezing (-) Snoring Gastrointestinal: (+) Incontinence (-) Abdominal Pain (-) Diarrhea (+) Constipation (-) Nausea/Vomiting (+) Heart Burn Endocrine: (-) Thyroid Disorder (-) Diabetes Hematologic: (-) Prolonged Bleeding (-) Easy Bruising Genitourinary: (-) Incontinence (-) Frequency (-) Urinary Urgency Skin: (-) Rashes (-) Itching (-) Other Lesions Neurologic: (-) Headache (-) Double Vision (-) Confusion (-) Paralysis Psychiatric: (-) Depression (-) Anxiety (-) Delusions (-) Hallucinations (-) Personal History of Alcohol or Substance Abuse (-) Family History of Alcohol or Substance Abuse PAST MEDICAL HISTORY Diagnosis Date Aortic sclerosis 2012 Found on echo Arthritis of foot Bilateral heel spurs. 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 PAST SURGICAL HISTORY Procedure Laterality Date ARTHROPLASTY GLENOHUMRL JT HEMIARTHROPLASTY Left 03/2022 Arthroplasty, shoulder BREAST LUMPECTOMY HX Right 09/13/2021 U/S guided open right breast lumpectomy COLONOSCOPY FLX DX W/COLLJ SPEC WHEN PFRMD 03/26/2007 Colonoscopy DILATION AND CURETTAGE DXAND/THER NONOBSTETRIC Dilation AND curettage LAPAROSCOPY SURG CHOLECYSTECTOMY 1980 Cholecystectomy, lap SKIN BIOPSY HX ALLERGIES Allergen Reactions Ciprofloxacin Other: See Comments Ankle and achilles pain Seasonal Allergies Intolerance Current Outpatient Medications Medication Sig rOPINIRole (REQUIP) 0.5 mg tablet Take 1 tablet by mouth at bedtime as needed (RLS). guaiFENesin (MUCINEX) 600 mg 12 hr tablet Take 1 tablet by mouth two times a day as needed for cold/allergy symptoms. methocarbamol (ROBAXIN) 500 mg tablet Take 1 tablet by mouth three times a day as needed. ferrous sulfate (IRON ORAL) Take by mouth once daily. budesonide-formoterol (SYMBICORT) 160-4.5 mcg/actuation inhaler Inhale 2 Puffs as instructed two times a day. rOPINIRole (REQUIP) 1 mg tablet Take 1 tablet by mouth daily at bedtime. lisinopril (ZESTRIL) 30 mg tablet Take 1 tablet by mouth once daily. atorvastatin (LIPITOR) 20 mg tablet TAKE 1 TABLET DAILY AT BEDTIME FOR CHOLESTEROL MAGNESIUM ORAL Take by mouth. hydroCHLOROthiazide 12.5 mg capsule Take 1 capsule by mouth once daily. solifenacin 10 mg tablet Take (more content not included)... [facility] 11-24-2024 History of Present illness Narrative [facility] (ESTABLISHED PATIENT) Date: November 24, 2024 - 10:07 AM Chief Complaint: low back pain SUBJECTIVE: Marshall is an 89-year-old female presenting for follow-up of worsening lower back pain and neuropathy. Marshall reports a progressive worsening of lower back pain over the past few years. The pain is bilateral and does not radiate to the legs or upper back. She notes that the pain worsens with prolonged standing and overexertion. She has been taking methocarbamol, prescribed by her primary care physician about a month ago, but has not noticed significant improvement. She takes the medication before playing golf and does not report feeling tired from it. She also reports worsening neuropathy over the past three years, which has significantly impacted her mobility and ability to walk upright. She used to walk frequently but now finds it difficult to stand up straight and look ahead while walking. The combination of back pain and neuropathy has limited her physical activities, including playing golf, which she can only do for nine holes at a time. Despite her symptoms, she remains active and is determined to continue playing golf on her 89th birthday. She has a history of shoulder replacement surgery and has previously participated in physical therapy for balance and strength training. The pain is described as aching and is rated as 2 on a scale of 0-10. The patient Reports morning stiffness. Symptoms interfere with physical activity and walking. The pain is exacerbated by standing and walking. The pain is mitigated by sitting and heat. She is not currently receiving medications through the [facility]. She is not having difficulty with her PMC medications. The medications are effective and partially effective. REVIEW OF SYSTEMS: Constitutional: (-) Fever (-) Night Sweats (-) Weight Gain (-) Weight Loss (-) Fatigue Cardiovascular: (-) Chest Pain (-) Palpitations (-) Lightheadedness (+) Swelling of Ankles (-) Hx Heart Surgery Respiratory: (+) Shortness of Breath (-) Cough (-) Wheezing (-) Snoring Gastrointestinal: (+) Incontinence (-) Abdominal Pain (-) Diarrhea (+) Constipation (-) Nausea/Vomiting (+) Heart Burn Endocrine: (-) Thyroid Disorder (-) Diabetes Hematologic: (-) Prolonged Bleeding (-) Easy Bruising Genitourinary: (-) Incontinence (-) Frequency (-) Urinary Urgency Skin: (-) Rashes (-) Itching (-) Other Lesions Neurologic: (-) Headache (-) Double Vision (-) Confusion (-) Paralysis Psychiatric: (-) Depression (-) Anxiety (-) Delusions (-) Hallucinations (-) Personal History of Alcohol or Substance Abuse (-) Family History of Alcohol or Substance Abuse PAST MEDICAL HISTORY Diagnosis Date Aortic sclerosis 2012 Found on echo Arthritis of foot Bilateral heel spurs. 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 PAST SURGICAL HISTORY Procedure Laterality Date ARTHROPLASTY GLENOHUMRL JT HEMIARTHROPLASTY Left 03/2022 Arthroplasty, shoulder BREAST LUMPECTOMY HX Right 09/13/2021 U/S guided open right breast lumpectomy COLONOSCOPY FLX DX W/COLLJ SPEC WHEN PFRMD 03/26/2007 Colonoscopy DILATION & CURETTAGE DX&/THER NONOBSTETRIC Dilation & curettage LAPAROSCOPY SURG CHOLECYSTECTOMY 1979 Cholecystectomy, lap SKIN BIOPSY HX ALLERGIES Allergen Reactions Ciprofloxacin Other: See Comments Ankle and achilles pain Seasonal Allergies Intolerance Current Outpatient Medications Medication Sig rOPINIRole (REQUIP) 0.5 mg tablet Take 1 tablet by mouth at bedtime as needed (RLS). guaiFENesin (MUCINEX) 600 mg 12 hr tablet Take 1 tablet by mouth two times a day as needed for cold/allergy symptoms. methocarbamol (ROBAXIN) 500 mg tablet Take 1 tablet by mouth three times a day as needed. ferrous sulfate (IRON ORAL) Take by mouth once daily. budesonide-formoterol (SYMBICORT) 160-4.5 mcg/actuation inhaler Inhale 2 Puffs as instructed two times a day. rOPINIRole (REQUIP) 1 mg tablet Take 1 tablet by mouth daily at bedtime. lisinopril (ZESTRIL) 30 mg tablet Take 1 tablet by mouth once daily. atorvastatin (LIPITOR) 20 mg tablet TAKE 1 TABLET DAILY AT BEDTIME FOR CHOLESTEROL MAGNESIUM ORAL Take by mouth. hydroCHLOROthiazide 12.5 mg capsule Take 1 capsule by mouth once daily. solifenacin 10 mg tablet Take 0.5 tablets by mouth once daily. melatonin 10 mg cap Take 10 mg by mouth. ESOMEPRAZOLE MAGNESIUM (NEXIUM 24HR ORAL) Take by mouth. No current facility-administered medications for this visit. I have reviewed the nurses notes and I am aware of the family/social history. OARRS Report reviewed: Yes Narcotic Agreement reviewed and signed?: N/A Baseline Urine Toxicology obtained: N/A Urine Panel: No results found for: UQCANN, UQBNZL, GMR5WNZ, UQAMPH, UQMAMP, UQBUPRE, UQNORBUP, UQMTHD, UQEDDP, UQTRAM, UQDTRM, UQFNTL, UQNFTL, UQCODE, UQMORP, UQDCDN, UQHCOD, UQOXYC, UQHMOR, UQOXYM, UQCREA, UQPH, UQSPGR, UQOXID, UQSPQ The pain panel was N/A PHYSICAL EXAM: Performed in conjunction with observation. The patient was alert and oriented x3. The patient was in no acute distress. Lungs: Clear, negative for dyspnea or distress. CVR: Negative for SOB or peripheral edema. - Musculoskeletal: - Spine: Scoliosis noted. - Range of Motion: - Back extension: Mild pulling sensation. - Trunk rotation: Stiffness noted. - Forward flexion: Tightness noted. - Straight Leg Raise: Negative bilaterally. Medical record and diagnostic tests were reviewed for today's visit. ASSESSMENT/PLAN: 1. Chronic bilateral low back pain without sciatica (M54.50) 2. Degeneration of intervertebral disc of lumbar region with discogenic back pain (M51.360) - Chronic bilateral low back pain with no radiation to the legs; pain exacerbated by prolonged standing and overexertion. - Physical exam reveals limited range of motion with stiffness on trunk rotation and tightness on forward flexion; negative straight leg raise bilaterally. - Diagnosed with scoliosis and lumbar canal stenosis contributing to muscle tension and spasm. - Prescribed methocarbamol 500 mg, advised to take post-activity or at bedtime to alleviate muscle stiffness. - Ordered physical therapy at [facility] in [place] to improve flexibility and range of motion. 3. Idiopathic peripheral neuropathy (G60.9) - Neuropathy has progressively worsened over the past three years, contributing to limitations in mobility and exacerbating back pain. - No new interventions at this time; focus on managing symptoms through physical therapy and medication. The above plan and management options were discussed with patient. The patient is in agreement with the above and verbalized understanding. I have discussed and confirmed the above treatment plan with the patient and I have reviewed the nurses notes and I am aware of the family/social history. I have confirmed ROS findings. Larry Burdick MD 1. This document has been created with the use of voice recognition technology. It may contain inaccuracies: (e.g. misspellings, inaccurate syntax or word sense) that have escaped review. 2. The nurse practitioner, nursing staff and medical assistants are a major part of YOUR TREATMENT TEAM and will be handling your phone calls and inquiries, if any. Unless explicitly told otherwise at the time of your office visit, your study results and ensuing treatment plans will be discussed during your follow-up appointment. If you do not have a follow-up appointment and wish to discuss any issues, please set up an appointment. 3. All of the office notes, study results, and other pertinent documentation generated as part of your evaluation will be available to you and to your Primary Care Physician (PCP). Use of this material to complete such forms will be at the discretion of your PCP/referring physician. documented in this encounter [facility] 11-22-2024 Telephone encounter Note Pt notified via [employer] that referral faxed and she can call to schedule. Referral, demo, insurance card, OV note, med list faxed to Dr. Leal's office Calista Quintana MA [facility] 11-22-2024 Miscellaneous Notes Pt notified via [employer] that referral faxed and she can call to schedule. Referral, demo, insurance card, OV note, med list faxed to Dr. Leal's office Calista Quintana MA Order sent for pain management. Please call to schedule. Patient requesting pain management referral. Last office visit 09/21/24 documented in this encounter [facility] 11-22-2024 Telephone encounter Note Order sent for pain management. Please call to schedule. [facility] 11-22-2024 Telephone encounter Note Patient requesting pain management referral. Last office visit 09/21/24 [facility] 09-21-2024 Instructions Nadia Brambila APRN.CNP - 09/21/2024 2:33 PM EDT - Keep appt. January 25 - Switch atorvastatin to [id number] - Mucinex filled for 2 x day ( 600 mg ) - Doxycycline 100 mg 2 x day for 10 days - Use saline nasal spray while on antibiotic - Methocarbamol 500 mg 3 x day as needed for flank pain documented in this encounter [facility] 09-21-2024 Note HNO ID: [id number] Author: NADIA BRAMBILA APRN.CNP Service: ? Author Type: Nurse Practitioner Type: Progress Notes Filed: 09/21/2024 14:33 Note Text: This is a 89 year old female who presents today with: No chief complaint on file. HISTORY OF PRESENT ILLNESS: Marshall Wu is a 89 year old female. No chief complaint on file. Bad cough started 1 week ago. Runny nose and congestion Non-productive cough No H/A + Fatigue No sore throat No body aches No fever or chills Taking Mucinex Right flank pain since fall in Mar. Went to therapy and one particular exercise makes it worse No gym in a couple weeks Wants to stop atorvastatin due to cost and her age PAST MEDICAL HISTORY: PAST MEDICAL HISTORY Diagnosis Date Aortic sclerosis 2012 Found on echo Arthritis of foot Bilateral heel spurs. 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 budesonide-formoterol (SYMBICORT) 160-4.5 mcg/actuation inhaler Inhale 2 Puffs as instructed two times a day. rOPINIRole (REQUIP) 1 mg tablet Take 1 tablet by mouth daily at bedtime. lisinopril (ZESTRIL) 30 mg tablet Take 1 tablet by mouth once daily. atorvastatin (LIPITOR) 20 mg tablet TAKE 1 TABLET DAILY AT BEDTIME FOR CHOLESTEROL MAGNESIUM ORAL Take by mouth. hydroCHLOROthiazide 12.5 mg capsule Take 1 capsule by mouth once daily. solifenacin 10 mg tablet Take 0.5 tablets by mouth once daily. melatonin 10 mg cap Take 10 mg by mouth. ESOMEPRAZOLE MAGNESIUM (NEXIUM 24HR ORAL) Take by mouth. No current facility-administered medications for this visit. FAMILY HISTORY Problem Relation Age of Onset Alzheimer's Disease Mother Arthritis Father Stroke Father Breast Cancer Maternal Aunt other (lung cancer) Maternal Aunt Prostate Cancer Son Stroke Other Fatal. Brother in law. Social History Tobacco Use Smoking status: Former Current packs/day: 0.00 Average packs/day: 1.3 packs/day for 32.0 years (41.7 ttl pk-yrs) Types: Cigarettes Start date: 03/10/1955 Quit date: 07/14/1986 Years since quittin.2 Smokeless tobacco: Never Tobacco comments: Parents did not smoke in childhood home. Spouse non smoker. Vaping Use Vaping status: Never Used Substance Use Topics Alcohol use: Yes Comment: Occasional. Drug use: No EXAM: BP 130/72 Pulse 62 Temp 36.5 ?C (97.7 ?F) (Left Tympanic) Wt 69.4 kg (153 lb) SpO2 92% BMI 27.10 kg/m? PHYSICAL EXAM: Physical Exam Vitals reviewed. Constitutional: Appearance: Normal appearance. HENT: Head: Normocephalic. Right Ear: External ear normal. There is no impacted cerumen. Left Ear: External ear normal. There is no impacted cerumen. Ears: Comments: Both canals red, left is a little swollen Nose: Congestion and rhinorrhea present. Mouth/Throat: Pharynx: Oropharyngeal exudate and posterior oropharyngeal erythema present. Cardiovascular: Rate and Rhythm: Normal rate and regular rhythm. Pulses: Normal pulses. Heart sounds: Normal heart sounds. Pulmonary: Effort: Pulmonary effort is normal. Breath sounds: Normal breath sounds. Comments: Cleared with cough Negative egophony Musculoskeletal: General: Normal range of motion. Comments: Walks w/o assistive device, moves all ext. Negative CVA tenderness Skin: General: Skin is warm and dry. Neurological: Mental Status: She is alert and oriented to person, place, and time. LABS: ASSESSMENT/PLAN: 1. Acute non-recurrent sinusitis, unspecified location - ICD9: 461.9, ICD10: J01.90 (primary diagnosis) - Will begin treatment with Doxycycline - DOXYCYCLINE HYCLATE 100 MG TABLET 2. Cough, unspecified type - ICD9: 786.2, ICD10: R05.9 Ongoing - GUAIFENESIN ER 600 MG TABLET, EXTENDED RELEASE 12 HR 3. Upper back pain - ICD9: 724.5, ICD10: M54.9 Right flank pain, negative CVA tenderness - Muscle relaxant- see orders - METHOCARBAMOL 500 MG TABLET 3 x day as needed - Hot and cold contrast 4. Pure hypercholesterolemia - ICD9: 272.0, ICD10: E78.00 Will switch atorvastatin to [id number] Discussed treatm (more content not included)... [facility] 09-21-2024 History of Present illness Narrative This is a 89 year old female who presents today with: No chief complaint on file. HISTORY OF PRESENT ILLNESS: Marshall Wu is a 89 year old female. No chief complaint on file. Bad cough started 1 week ago. Runny nose and congestion Non-productive cough No H/A + Fatigue No sore throat No body aches No fever or chills Taking Mucinex Right flank pain since fall in Mar. Went to therapy and one particular exercise makes it worse No gym in a couple weeks Wants to stop atorvastatin due to cost and her age PAST MEDICAL HISTORY: PAST MEDICAL HISTORY Diagnosis Date Aortic sclerosis 2012 Found on echo Arthritis of foot Bilateral heel spurs. 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 budesonide-formoterol (SYMBICORT) 160-4.5 mcg/actuation inhaler Inhale 2 Puffs as instructed two times a day. rOPINIRole (REQUIP) 1 mg tablet Take 1 tablet by mouth daily at bedtime. lisinopril (ZESTRIL) 30 mg tablet Take 1 tablet by mouth once daily. atorvastatin (LIPITOR) 20 mg tablet TAKE 1 TABLET DAILY AT BEDTIME FOR CHOLESTEROL MAGNESIUM ORAL Take by mouth. hydroCHLOROthiazide 12.5 mg capsule Take 1 capsule by mouth once daily. solifenacin 10 mg tablet Take 0.5 tablets by mouth once daily. melatonin 10 mg cap Take 10 mg by mouth. ESOMEPRAZOLE MAGNESIUM (NEXIUM 24HR ORAL) Take by mouth. No current facility-administered medications for this visit. FAMILY HISTORY Problem Relation Age of Onset Alzheimer's Disease Mother Arthritis Father Stroke Father Breast Cancer Maternal Aunt other (lung cancer) Maternal Aunt Prostate Cancer Son Stroke Other Fatal. Brother in law. Social History Tobacco Use Smoking status: Former Current packs/day: 0.00 Average packs/day: 1.3 packs/day for 32.0 years (41.7 ttl pk-yrs) Types: Cigarettes Start date: 03/10/1955 Quit date: 07/14/1986 Years since quittin.2 Smokeless tobacco: Never Tobacco comments: Parents did not smoke in childhood home. Spouse non smoker. Vaping Use Vaping status: Never Used Substance Use Topics Alcohol use: Yes Comment: Occasional. Drug use: No EXAM: BP 130/72 Pulse 62 Temp 36.5 C (97.7 F) (Left Tympanic) Wt 69.4 kg (153 lb) SpO2 92% BMI 27.10 kg/m PHYSICAL EXAM: Physical Exam Vitals reviewed. Constitutional: Appearance: Normal appearance. HENT: Head: Normocephalic. Right Ear: External ear normal. There is no impacted cerumen. Left Ear: External ear normal. There is no impacted cerumen. Ears: Comments: Both canals red, left is a little swollen Nose: Congestion and rhinorrhea present. Mouth/Throat: Pharynx: Oropharyngeal exudate and posterior oropharyngeal erythema present. Cardiovascular: Rate and Rhythm: Normal rate and regular rhythm. Pulses: Normal pulses. Heart sounds: Normal heart sounds. Pulmonary: Effort: Pulmonary effort is normal. Breath sounds: Normal breath sounds. Comments: Cleared with cough Negative egophony Musculoskeletal: General: Normal range of motion. Comments: Walks w/o assistive device, moves all ext. Negative CVA tenderness Skin: General: Skin is warm and dry. Neurological: Mental Status: She is alert and oriented to person, place, and time. LABS: ASSESSMENT/PLAN: 1. Acute non-recurrent sinusitis, unspecified location - ICD9: 461.9, ICD10: J01.90 (primary diagnosis) - Will begin treatment with Doxycycline - DOXYCYCLINE HYCLATE 100 MG TABLET 2. Cough, unspecified type - ICD9: 786.2, ICD10: R05.9 Ongoing - GUAIFENESIN ER 600 MG TABLET, EXTENDED RELEASE 12 HR 3. Upper back pain - ICD9: 724.5, ICD10: M54.9 Right flank pain, negative CVA tenderness - Muscle relaxant- see orders - METHOCARBAMOL 500 MG TABLET 3 x day as needed - Hot and cold contrast 4. Pure hypercholesterolemia - ICD9: 272.0, ICD10: E78.00 Will switch atorvastatin to [id number] Discussed treatment plan and patient voices understanding. Patient's questions answered appropriately. Medications and potential side effects were discussed and patient voices understanding. Return to the office as scheduled or as needed for worsening/no improvement. Nadia Brambila APRN.CNP documented in this encounter [facility] 07-26-2024 Instructions Nadia Brambila APRN.CNP - 07/26/2024 11:54 AM EST 1) Watch sodium intake 2) Follow up 6 months documented in this encounter [facility] 07-26-2024 Note HNO ID: [id number] Author: NADIA BRAMBILA APRN.CNP Service: ? Author Type: Clinical Nurse Specialist Type: Progress Notes Filed: 07/26/2024 11:55 Note Text: This is a 89 year old female who presents today with: Patient presents with: Establish Care Suture Removal: Right upper arm HISTORY OF PRESENT ILLNESS: Marshall Wu is a 89 year old female. Patient presents with: Establish Care Suture Removal: Right upper arm Pt. Had nevi for years. They removed a pre-melanoma removed and sutures need to come out No other health complaints or concerns Complete physical therapy for balance- thinks it was helpful PAST MEDICAL HISTORY: PAST MEDICAL HISTORY Diagnosis Date Aortic sclerosis 2012 Found on echo Arthritis of foot Bilateral heel spurs. 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 rOPINIRole (REQUIP) 1 mg tablet Take 1 tablet by mouth daily at bedtime. lisinopril (ZESTRIL) 30 mg tablet Take 1 tablet by mouth once daily. atorvastatin (LIPITOR) 20 mg tablet TAKE 1 TABLET DAILY AT BEDTIME FOR CHOLESTEROL MAGNESIUM ORAL Take by mouth. lisinopril (ZESTRIL) 30 mg tablet Take 1 tablet by mouth once daily. budesonide-formoterol (SYMBICORT) 160-4.5 mcg/actuation inhaler Inhale 2 Puffs as instructed two times a day. hydroCHLOROthiazide 12.5 mg capsule Take 1 capsule by mouth once daily. solifenacin 10 mg tablet Take 0.5 tablets by mouth once daily. melatonin 10 mg cap Take 10 mg by mouth. ESOMEPRAZOLE MAGNESIUM (NEXIUM 24HR ORAL) Take by mouth. No current facility-administered medications for this visit. FAMILY HISTORY Problem Relation Age of Onset Alzheimer's Disease Mother Arthritis Father Stroke Father Breast Cancer Maternal Aunt other (lung cancer) Maternal Aunt Prostate Cancer Son Stroke Other Fatal. Brother in law. Social History Tobacco Use Smoking status: Former Current packs/day: 0.00 Average packs/day: 1.3 packs/day for 32.0 years (41.7 ttl pk-yrs) Types: Cigarettes Start date: 03/10/1955 Quit date: 07/14/1986 Years since quittin.0 Smokeless tobacco: Never Tobacco comments: Parents did not smoke in childhood home. Spouse non smoker. Vaping Use Vaping status: Never Used Substance Use Topics Alcohol use: Yes Comment: Occasional. Drug use: No REVIEW OF SYSTEMS GENERAL: No weight loss, malaise or fevers/chills HEENT: Negative for frequent or significant headaches, No changes in hearing or vision (wears hearing aids). NECK: Negative for lumps, goiter, pain and significant neck swelling RESPIRATORY: Negative for cough, hemoptysis, wheezing, no change in dyspnea or shortness of breath CARDIOVASCULAR: Negative for chest pain, leg swelling, orthopnea, or palpitations GI: No nausea, vomiting, or diarrhea/constipation. No hematochezia/melena. + heartburn or reflux symptoms and Nexium works : No history of dysuria, frequency or incontinence MUSCULOSKELETAL: Negative for joint pain or swelling. SKIN: Negative for lesions, rash, and itching- surtures in right upper arm without redness or drainage- no swelling ENDOCRINE: Negative for cold or heat intolerance, polyuria, polydipsia and goiter NEURO: No history of headaches, syncope, paralysis, seizures or tremors MOOD: Negative for depression, anxiety, or suicidal ideation. EXAM: BP 140/76 Pulse 76 Temp 36.4 ?C (97.6 ?F) Resp 16 Wt 69.9 kg (154 lb) SpO2 97% BMI 27.28 kg/m? PHYSICAL EXAM: Physical Exam Vitals reviewed. Constitutional: Appearance: Normal appearance. HENT: Head: Normocephalic. Cardiovascular: Rate and Rhythm: Normal rate and regular rhythm. Pulses: Normal pulses. Heart sounds: Normal heart sounds. Pulmonary: Effort: Pulmonary effort is normal. Breath sounds: Normal breath sounds. Abdominal: General: Bowel sounds are normal. Palpations: Abdomen is soft. Tenderness: There is no abdominal tenderness. There is no guarding or rebound. Musculoskeletal: General: Normal range of motion. Comments: Moves all ext. Without difficulty, walks w/ (more content not included)... [facility] 07-26-2024 History of Present illness Narrative This is a 89 year old female who presents today with: Patient presents with: Establish Care Suture Removal: Right upper arm HISTORY OF PRESENT ILLNESS: Marshall Wu is a 89 year old female. Patient presents with: Establish Care Suture Removal: Right upper arm Pt. Had nevi for years. They removed a pre-melanoma removed and sutures need to come out No other health complaints or concerns Complete physical therapy for balance- thinks it was helpful PAST MEDICAL HISTORY: PAST MEDICAL HISTORY Diagnosis Date Aortic sclerosis 2012 Found on echo Arthritis of foot Bilateral heel spurs. 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 rOPINIRole (REQUIP) 1 mg tablet Take 1 tablet by mouth daily at bedtime. lisinopril (ZESTRIL) 30 mg tablet Take 1 tablet by mouth once daily. atorvastatin (LIPITOR) 20 mg tablet TAKE 1 TABLET DAILY AT BEDTIME FOR CHOLESTEROL MAGNESIUM ORAL Take by mouth. lisinopril (ZESTRIL) 30 mg tablet Take 1 tablet by mouth once daily. budesonide-formoterol (SYMBICORT) 160-4.5 mcg/actuation inhaler Inhale 2 Puffs as instructed two times a day. hydroCHLOROthiazide 12.5 mg capsule Take 1 capsule by mouth once daily. solifenacin 10 mg tablet Take 0.5 tablets by mouth once daily. melatonin 10 mg cap Take 10 mg by mouth. ESOMEPRAZOLE MAGNESIUM (NEXIUM 24HR ORAL) Take by mouth. No current facility-administered medications for this visit. FAMILY HISTORY Problem Relation Age of Onset Alzheimer's Disease Mother Arthritis Father Stroke Father Breast Cancer Maternal Aunt other (lung cancer) Maternal Aunt Prostate Cancer Son Stroke Other Fatal. Brother in law. Social History Tobacco Use Smoking status: Former Current packs/day: 0.00 Average packs/day: 1.3 packs/day for 32.0 years (41.7 ttl pk-yrs) Types: Cigarettes Start date: 03/10/1955 Quit date: 07/14/1986 Years since quittin.0 Smokeless tobacco: Never Tobacco comments: Parents did not smoke in childhood home. Spouse non smoker. Vaping Use Vaping status: Never Used Substance Use Topics Alcohol use: Yes Comment: Occasional. Drug use: No REVIEW OF SYSTEMS GENERAL: No weight loss, malaise or fevers/chills HEENT: Negative for frequent or significant headaches, No changes in hearing or vision (wears hearing aids). NECK: Negative for lumps, goiter, pain and significant neck swelling RESPIRATORY: Negative for cough, hemoptysis, wheezing, no change in dyspnea or shortness of breath CARDIOVASCULAR: Negative for chest pain, leg swelling, orthopnea, or palpitations GI: No nausea, vomiting, or diarrhea/constipation. No hematochezia/melena. + heartburn or reflux symptoms and Nexium works : No history of dysuria, frequency or incontinence MUSCULOSKELETAL: Negative for joint pain or swelling. SKIN: Negative for lesions, rash, and itching- surtures in right upper arm without redness or drainage- no swelling ENDOCRINE: Negative for cold or heat intolerance, polyuria, polydipsia and goiter NEURO: No history of headaches, syncope, paralysis, seizures or tremors MOOD: Negative for depression, anxiety, or suicidal ideation. EXAM: BP 140/76 Pulse 76 Temp 36.4 C (97.6 F) Resp 16 Wt 69.9 kg (154 lb) SpO2 97% BMI 27.28 kg/m PHYSICAL EXAM: Physical Exam Vitals reviewed. Constitutional: Appearance: Normal appearance. HENT: Head: Normocephalic. Cardiovascular: Rate and Rhythm: Normal rate and regular rhythm. Pulses: Normal pulses. Heart sounds: Normal heart sounds. Pulmonary: Effort: Pulmonary effort is normal. Breath sounds: Normal breath sounds. Abdominal: General: Bowel sounds are normal. Palpations: Abdomen is soft. Tenderness: There is no abdominal tenderness. There is no guarding or rebound. Musculoskeletal: General: Normal range of motion. Comments: Moves all ext. Without difficulty, walks w/o assistive device Skin: General: Skin is warm and dry. Comments: Right bicep with 3 incision with running suture intact No redness, drainage, or swelling Neurological: Mental Status: She is alert and oriented to person, place, and time. Psychiatric: Mood and Affect: Mood normal. Behavior: Behavior normal. LABS: recheck labs in 6 months ASSESSMENT/PLAN: 1. Essential hypertension - ICD9: 401.9, ICD10: I10 (primary diagnosis) - Uncontrolled - Recommend home blood pressure monitoring, to bring results to next visit - Encouraged sodium restriction, DASH or Mediterranean diet - Recommend regular aerobic exercise 2. 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) - ICD9: 496, ICD10: J44.9 Stable - BUDESONIDE-FORMOTEROL HFA 160 MCG-4.5 MCG/ACTUATION AEROSOL INHALER 3. Encounter for immunization - ICD9: V03.89, ICD10: Z23 Declined vaccine 4. Pure hypercholesterolemia - ICD9: 272.0, ICD10: E78.00 Continue atorvastatin 5. Gastroesophageal reflux disease without esophagitis - ICD9: 530.81, ICD10: K21.9 - Stable on Nexium 2 x day 6. 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 Patient's questions answered appropriately. Medications and potential side effects were discussed and patient voices understanding. Return to the office as scheduled or as needed for worsening/no improvement. Nadia Brambila APRN.CNP documented in this encounter [facility] 07-23-2024 Telephone encounter Note Absolutely [facility] 07-23-2024 Miscellaneous Notes Absolutely documented in this encounter [facility] 07-16-2024 Note HNO ID: [id number] Author: BANG PLUMMER JR, MD Service: ? Author Type: Physician Type: Progress Notes Filed: 07/16/2024 11:02 Note Text: ESTABLISHED PATIENT VISIT CHIEF COMPLAINT: Follow Up HISTORY OF PRESENT ILLNESS: Marshall Wu is a 89 year old female, BMI 26.93 kg/m2 with a PMH significant for and per last office visit of 12/2023: 1. Neuropathy - ICD9: 355.9, ICD10: G62.9 (primary diagnosis) Patient with balance issues that are no obvious on exam. No falls. Prior L spine workup not concerning, and while degenerative disc disease noted on XR, no weakness on exam or pain/discomfort typical of spine etiology. Besides stocking glove sensory deficits, non focal neuro exam. Patient very active. 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 Extensive lab workup already performed by PCP, but will add WSR and INDIA with reflex to complete neuropathy labs. No known exposures to heavy metals or other toxins that might induce neuropathy. No history of chemotherapy. No family history of neuropathy. Mild elevated glucose which might be contributing to disorder. Encouraged exercise. Pt does not feel she needs PT. 2. Restless leg - ICD9: 333.94, ICD10: G25.81 As above, noted urge to move, worse towards the night time and improved with actual movement. No prior Fe or Ferritin levels, and will add to next set of patient's labs - distant history of Fe deficiency. For discomfort or urge to move, will start patient on gabapentin 100mg at lunch and 100mg at dinner to see if improves discomfort and urge to move prior to bedtime. Will continue Requip for now. Will likely need titration of gabapentin dosing and if successful in controlling symptoms, then will try to transition from Requip to gabapentin. Likewise, gabapentin may help with nay discomfort associated with neuropathy. SE and ADRs d/w pt. Patient only took gabapentin for 1 week. Never titrated above 100mg twice daily. States RLS well controlled on Ropinirole 1mg at bedtime (maybe symptoms one night every few weeks). She feels neuropathy has progressed, and moved up to ankles and feet ice cold. [place] [facility] improved balance. 2 falls in 03/2024 - first fall associated with the left foot feeling stuck to the ground. The other she fell after stepping on her shoe lace -- both appears to be mechanical. Neuropathy symptoms present all day - so long as has shoes on ok. Currently taking Fe twice daily. No side effects. She would like to reduce to once daily. REVIEW OF SYSTEMS GENERAL:No weight loss, malaise or fevers. HEENT:Negative for frequent or significant headaches, No changes in hearing or vision, no nose bleeds or other nasal problems NECK:Negative for lumps, goiter, pain and significant neck swelling RESPIRATORY: Negative for cough, wheezing or shortness of breath. CARDIOVASCULAR: Negative for chest pain, leg swelling or palpitations. GASTROINTESTINAL: Negative for abdominal discomfort, blood in stools or black stools or change in bowel habits GENITOURINARY: No history of dysuria, frequency or incontinence MUSCULOSKELETAL: Negative for joint pain or swelling, back pain or muscle pain. NEUROLOGIC:See HPI. SKIN:Negative for lesions, rash, and itching. LAB/IMAGING: Those performed since patient's last visit have been reviewed. WBC (k/uL) Date Value 09/27/2023 5.97 RBC (m/uL) Date Value 09/27/2023 4.58 Hemoglobin (g/dL) Date Value 09/27/2023 13.7 Hematocrit (%) Date Value 09/27/2023 42.4 MCV (fL) Date Value 09/27/2023 92.6 MCH (pg) Date Value 09/27/2023 29.9 MCHC (g/dL) Date Value 09/27/2023 32.3 RDW-CV (%) Date Value 09/27/2023 13.5 Platelet Count (k/uL) Date Value 09/27/2023 243 MPV (fL) Date Value 09/27/2023 11.0 Glucose (mg/dL) Date Value 01/10/2024 82 BUN (mg/dL) Date Value 01/10/2024 11 Creatinine (mg/dL) Date Value 01/10/2024 0.62 Sodium (mmol/L) Date Value 01/10/2024 136 Potassium (mmol/L) Date Value 01/10/2024 4.1 Chloride (mmol/L) Date Value 01/10/2024 99 CO2 (mmol/L) Date Value 01/10/2024 27 Protein, Total (g/dL) Date Value 09/27/2023 6.7 09/27/2023 6.7 Albumin (g/dL) Date Value 09/27/2023 4.1 Calcium, Total (mg/dL) Date Value 01/10/2024 9.2 Alkaline Phosphatase (U/L) Date Value 09/27/2023 101 Bilirubin, Total (mg/dL) Date Value 09/27/2023 0.6 AST (U/L) Date Value 09/27/2023 15 ALT (U/L) Date Value 09/27/2023 9 INDIA (no units) Date Value 01/10/2024 Positive (A) SSA Antibody IgG (AI) Date Value 01/10/2024 <0.2 SSB Antibody (AI) Date Value 01/10/2024 <0.2 MEDICATIONS: lisinopril (ZESTRIL) 30 mg tablet Take 1 tablet by mouth once daily. atorvastatin (LIPITOR) 20 mg tablet TAKE 1 TABLET DAILY AT BEDTIME FOR CHOLESTEROL MAGNESIUM ORAL T (more content not included)... [facility] 07-16-2024 History of Present illness Narrative ESTABLISHED PATIENT VISIT CHIEF COMPLAINT: Follow Up HISTORY OF PRESENT ILLNESS: Marshall Wu is a 89 year old female, BMI 26.93 kg/m2 with a PMH significant for and per last office visit of 12/2023: 1. Neuropathy - ICD9: 355.9, ICD10: G62.9 (primary diagnosis) Patient with balance issues that are no obvious on exam. No falls. Prior L spine workup not concerning, and while degenerative disc disease noted on XR, no weakness on exam or pain/discomfort typical of spine etiology. Besides stocking glove sensory deficits, non focal neuro exam. Patient very active. 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 Extensive lab workup already performed by PCP, but will add WSR and [place] with reflex to complete neuropathy labs. No known exposures to heavy metals or other toxins that might induce neuropathy. No history of chemotherapy. No family history of neuropathy. Mild elevated glucose which might be contributing to disorder. Encouraged exercise. Pt does not feel she needs PT. 2. Restless leg - ICD9: 333.94, ICD10: G25.81 As above, noted urge to move, worse towards the night time and improved with actual movement. No prior Fe or Ferritin levels, and will add to next set of patient's labs - distant history of Fe deficiency. For discomfort or urge to move, will start patient on gabapentin 100mg at lunch and 100mg at dinner to see if improves discomfort and urge to move prior to bedtime. Will continue Requip for now. Will likely need titration of gabapentin dosing and if successful in controlling symptoms, then will try to transition from Requip to gabapentin. Likewise, gabapentin may help with nay discomfort associated with neuropathy. SE and ADRs d/w pt. Patient only took gabapentin for 1 week. Never titrated above 100mg twice daily. States RLS well controlled on Ropinirole 1mg at bedtime (maybe symptoms one night every few weeks). She feels neuropathy has progressed, and moved up to ankles and feet ice cold. [place] [facility] improved balance. 2 falls in 03/2024 - first fall associated with the left foot feeling stuck to the ground. The other she fell after stepping on her shoe lace -- both appears to be mechanical. Neuropathy symptoms present all day - so long as has shoes on ok. Currently taking Fe twice daily. No side effects. She would like to reduce to once daily. REVIEW OF SYSTEMS GENERAL:No weight loss, malaise or fevers. HEENT:Negative for frequent or significant headaches, No changes in hearing or vision, no nose bleeds or other nasal problems NECK:Negative for lumps, goiter, pain and significant neck swelling RESPIRATORY: Negative for cough, wheezing or shortness of breath. CARDIOVASCULAR: Negative for chest pain, leg swelling or palpitations. GASTROINTESTINAL: Negative for abdominal discomfort, blood in stools or black stools or change in bowel habits GENITOURINARY: No history of dysuria, frequency or incontinence MUSCULOSKELETAL: Negative for joint pain or swelling, back pain or muscle pain. NEUROLOGIC:See HPI. SKIN:Negative for lesions, rash, and itching. LAB/IMAGING: Those performed since patient's last visit have been reviewed. WBC (k/uL) Date Value 09/27/2023 5.97 RBC (m/uL) Date Value 09/27/2023 4.58 Hemoglobin (g/dL) Date Value 09/27/2023 13.7 Hematocrit (%) Date Value 09/27/2023 42.4 MCV (fL) Date Value 09/27/2023 92.6 MCH (pg) Date Value 09/27/2023 29.9 MCHC (g/dL) Date Value 09/27/2023 32.3 RDW-CV (%) Date Value 09/27/2023 13.5 Platelet Count (k/uL) Date Value 09/27/2023 243 MPV (fL) Date Value 09/27/2023 11.0 Glucose (mg/dL) Date Value 01/10/2024 82 BUN (mg/dL) Date Value 01/10/2024 11 Creatinine (mg/dL) Date Value 01/10/2024 0.62 Sodium (mmol/L) Date Value 01/10/2024 136 Potassium (mmol/L) Date Value 01/10/2024 4.1 Chloride (mmol/L) Date Value 01/10/2024 99 CO2 (mmol/L) Date Value 01/10/2024 27 Protein, Total (g/dL) Date Value 09/27/2023 6.7 09/27/2023 6.7 Albumin (g/dL) Date Value 09/27/2023 4.1 Calcium, Total (mg/dL) Date Value 01/10/2024 9.2 Alkaline Phosphatase (U/L) Date Value 09/27/2023 101 Bilirubin, Total (mg/dL) Date Value 09/27/2023 0.6 AST (U/L) Date Value 09/27/2023 15 ALT (U/L) Date Value 09/27/2023 9 [place] (no units) Date Value 01/10/2024 Positive (A) SSA Antibody IgG (AI) Date Value 01/10/2024 <0.2 SSB Antibody (AI) Date Value 01/10/2024 <0.2 MEDICATIONS: lisinopril (ZESTRIL) 30 mg tablet Take 1 tablet by mouth once daily. atorvastatin (LIPITOR) 20 mg tablet TAKE 1 TABLET DAILY AT BEDTIME FOR CHOLESTEROL MAGNESIUM ORAL Take by mouth. rOPINIRole (REQUIP) 1 mg tablet Take 1 tablet by mouth daily at bedtime. lisinopril (ZESTRIL) 30 mg tablet Take 1 tablet by mouth once daily. budesonide-formoterol (SYMBICORT) 160-4.5 mcg/actuation inhaler Inhale 2 Puffs as instructed two times a day. hydroCHLOROthiazide 12.5 mg capsule Take 1 capsule by mouth once daily. solifenacin 10 mg tablet Take 0.5 tablets by mouth once daily. melatonin 10 mg cap Take 10 mg by mouth. ESOMEPRAZOLE MAGNESIUM (NEXIUM 24HR ORAL) Take by mouth. HISTORIES PAST MEDICAL HISTORY Diagnosis Date Aortic sclerosis 2012 Found on echo Arthritis of foot Bilateral heel spurs. 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 Brother in law. SOCIAL HISTORY Social History Tobacco Use Smoking status: Former Current packs/day: 0.00 Average packs/day: 1.3 packs/day for 32.0 years (41.7 ttl pk-yrs) Types: Cigarettes Start date: 03/10/1955 Quit date: 07/14/1986 Years since quittin.0 Smokeless tobacco: Never Tobacco comments: Parents did not smoke in childhood home. Spouse non smoker. Vaping Use Vaping status: Never Used Substance Use Topics Alcohol use: Yes Comment: Occasional. Drug use: No PHYSICAL EXAMINATION BP 134/77 (BP Site: Left Arm, BP Position: Sitting) Pulse 102 Wt 68.9 kg (152 lb) SpO2 98% BMI 26.93 kg/m GENERAL EXAM: General appearance: NAD, pleasant. HEENT: NC/AT, nasal congestion absent, no oral lesions, membranes moist. NECK: No masses, supple. Lungs: CTA bilaterally. CV: RRR nl S1, S2 Extr: No cyanosis, clubbing or edema. Extremity pulses palpable and normal. Skin: Cool to touch. NEUROLOGICAL EXAM: General: Awake, alert, oriented x3 (person,place,time), fluent, no dysarthria; comprehension, naming, repetition intact. CN: PERRL, EOMI and without nystagmus, VFF to confrontation, facial sensation and strength are normal and symmetric, hearing is intact to finger rub bilaterally, palate and tongue movements are intact and symmetric. SCM and trapezius strength normal. Motor: Normal tone, bulk and strength (5/5) bilaterally (throughout extremities x4). Coordination: FNF, CASSIUS, HTS intact. No tremors. Sensation: Pin, vibration, temperature diminished in stocking glove pattern distal to wrists and knees vitor. No evidence of neglect. Gait: Stable with normal stride and arm swing. Assessment and Plan: ASSESSMENT/PLAN: 1. Restless leg - ICD9: 333.94, ICD10: G25.81 (primary diagnosis) Stable with Requip 1mg and magnesium supplement at bedtime. Patient not wanting to make changes to current medication regimen. She is aware of risks of augmentation with Requip use. Refills provided. Regarding Fe supplement, both Fe and Ferritin improved on most recent levels in 03/2024. Recommended patient reduce supplement to 1 tab of FeSO4 325mg daily. 2. History of iron deficiency - ICD9: V12.3, ICD10: Z86.39 As above. 3. Peripheral polyneuropathy - ICD9: 356.9, ICD10: G62.9 Exam stable and consistent with peripheral polyneuropathy. Etiology still unknown with extensive workup showing no obvious cause, although glucose has bee increasing. Patient not wanting to try higher dose of gabapentin. Pt feels symptoms of discomfort not significant so as to need medication. Discussed options including gabapentin and lyrica. Will reevaluate in 6 months or sooner prn. Bang Plummer MD Medical Decision Making: Problems: Moderate: 2+ stable chronic illnesses Data: Unique test result(s) reviewed: 1 Risk: Moderate: Drug management Medical Decision Making Level: 4 - Moderate RLS is doing better with magnesium, neuropathy not getting any better, patient taking PT, PT did help. Stopped gabapetin, still taking requip. Marly Chavez LPN July 16, 2024 10:17 AM documented in this encounter [facility] 07-16-2024 Note HNO ID: [id number] Author: MARLY CHAVEZ LPN Service: ? Author Type: LICENSED NURSE Type: Progress Notes Filed: 07/16/2024 11:02 Note Text: RLS is doing better with magnesium, neuropathy not getting any better, patient taking PT, PT did help. Stopped gabapetin, still taking requip. Marly Chavez LPN July 16, 2024 10:17 AM [facility] 06-23-2024 Note HNO ID: [id number] Author: KAMILLE RIZO PA-C Service: ? Author Type: Physician Business English Instructor Type: Progress Notes Filed: 06/23/2024 12:23 Note Text: Patient: Marshall Wu PCP: Pamela Montgomery PA-C CC: follow up HPI: Marshall Wu 89 year old female former [id number] smoker having quit in 1986 with PMH significant for mild COPD, aortic stenosis, HTN, GERD, HLD, melanoma, and breast cancer. Current maintenance therapy Symbicort and as needed Albuterol. Today, patient reports minimal cough, sputum production, hemoptysis, or wheezing. Exertional dyspnea has not changed. She is most limited by her neuropathy. No fevers, chills, or night sweats. No unintended weight loss. She does report fatigue. No lower extremity edema. No GERD/heartburn. No recent hospitalizations or ED visits or upper respiratory infections. PAST MEDICAL HISTORY Diagnosis Date Aortic sclerosis 2012 Found on echo Arthritis of foot Bilateral heel spurs. 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 lisinopril (ZESTRIL) 30 mg tablet Take 1 tablet by mouth once daily. atorvastatin (LIPITOR) 20 mg tablet TAKE 1 TABLET DAILY AT BEDTIME FOR CHOLESTEROL MAGNESIUM ORAL Take by mouth. rOPINIRole (REQUIP) 1 mg tablet Take 1 tablet by mouth daily at bedtime. lisinopril (ZESTRIL) 30 mg tablet Take 1 tablet by mouth once daily. hydroCHLOROthiazide 12.5 mg capsule Take 1 capsule by mouth once daily. solifenacin 10 mg tablet Take 0.5 tablets by mouth once daily. melatonin 10 mg cap Take 10 mg by mouth. ESOMEPRAZOLE MAGNESIUM (NEXIUM 24HR ORAL) Take by mouth. Social History Tobacco Use Smoking status: Former Current packs/day: 0.00 Average packs/day: 1.3 packs/day for 32.0 years (41.7 ttl pk-yrs) Types: Cigarettes Start date: 03/10/1955 Quit date: 07/14/1986 Years since quittin.9 Smokeless tobacco: Never Tobacco comments: Parents did not smoke in childhood home. Spouse non smoker. Vaping Use Vaping status: Never Used Substance Use Topics Alcohol use: Yes Comment: Occasional. Drug use: No Family History Problem Relation Age of Onset Alzheimer's Disease Mother Arthritis Father Stroke Father Breast Cancer Maternal Aunt other (lung cancer) Maternal Aunt Prostate Cancer Son Stroke Other Fatal. Brother in law. PAST SURGICAL HISTORY Procedure Laterality Date ARTHROPLASTY GLENOHUMRL JT HEMIARTHROPLASTY Left 03/2022 Arthroplasty, shoulder BREAST LUMPECTOMY HX Right 09/13/2021 U/S guided open right breast lumpectomy COLONOSCOPY FLX DX W/COLLJ SPEC WHEN PFRMD 03/26/2007 Colonoscopy DILATION AND CURETTAGE DXAND/THER NONOBSTETRIC Dilation AND curettage LAPAROSCOPY SURG CHOLECYSTECTOMY 1979 Cholecystectomy, lap SKIN BIOPSY HX I reviewed the past medical history, family history, social history and surgical history with changes noted above and updated in EMR. IMMUNIZATIONS Immunization History Administered Date(s) Administered COVID-19 original vaccine, full dose, monovalent (MODERNA) 08/03/2020 08/31/2020 05/17/2021 11/01/2021 influenza (HD-IIV3) vaccine, age 65+ yr, high dose, trivalent, PF (FLUZONE HIGH-DOSE) 05/19/2015 06/03/2016 04/08/2017 04/17/2018 05/14/2019 04/14/2023 influenza (HD-IIV4) vaccine, age 65+ yr, high dose, quadrivalent, PF (FLUZONE HIGH-DOSE) 05/06/2020 05/05/2021 05/14/2022 influenza (IIV3) vaccine, age 6 mo - 64 yr, trivalent (AFLURIA, FLULAVAL, FLUVIRIN, FLUZONE) 04/18/2014 influenza vaccine, unspecified formulation 04/21/2013 pneumococcal conjugate (PCV13) vaccine, 13 valent (PREVNAR 13) 05/19/2015 pneumococcal polysaccharide (PPV23) vaccine, 23 valent (PNEUMOVAX 23) 05/17/2008 respiratory syncytial virus (RSV) vaccine, adjuvanted (AREXVY) 05/20/2024 tetanus diphtheria (Td) vaccine, age 7+ yr, 5 Lf tetanus, PF (TENIVAC) 02/04/2016 04/28/2024 tetanus diphtheria pertussis (Tdap) vaccine, age 7+ yr (ADACEL, BOOSTRIX) 02/04/2016 ROS: All other systems reviewed as negative except for what is noted in HPI and review of systems. PHYSICAL EXAMINATION: BP 140/76 Pulse 85 Resp 16 Ht 160 cm (5' 3) Wt 68.9 kg (152 lb) SpO2 96% BMI 26.93 kg/m? Gen: No acute distress. Cooperative with examination. HEENT: Normocephalic. Sclera, conjunctiva clear. Oral hygeine and dentition good. No thrush. Resp: No stridor, accessory respiratory muscle use, supra-sternal or intercostal retractions. No wheezes (more content not included)... [facility] 06-23-2024 History of Present illness Narrative Patient: Marshall Wu PCP: Pamela Montgomery PA-C CC: follow up HPI: Marshall Wu 89 year old female former [id number] smoker having quit in 1986 with PMH significant for mild COPD, aortic stenosis, HTN, GERD, HLD, melanoma, and breast cancer. Current maintenance therapy Symbicort and as needed Albuterol. Today, patient reports minimal cough, sputum production, hemoptysis, or wheezing. Exertional dyspnea has not changed. She is most limited by her neuropathy. No fevers, chills, or night sweats. No unintended weight loss. She does report fatigue. No lower extremity edema. No GERD/heartburn. No recent hospitalizations or ED visits or upper respiratory infections. PAST MEDICAL HISTORY Diagnosis Date Aortic sclerosis 2012 Found on echo Arthritis of foot Bilateral heel spurs. 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 lisinopril (ZESTRIL) 30 mg tablet Take 1 tablet by mouth once daily. atorvastatin (LIPITOR) 20 mg tablet TAKE 1 TABLET DAILY AT BEDTIME FOR CHOLESTEROL MAGNESIUM ORAL Take by mouth. rOPINIRole (REQUIP) 1 mg tablet Take 1 tablet by mouth daily at bedtime. lisinopril (ZESTRIL) 30 mg tablet Take 1 tablet by mouth once daily. hydroCHLOROthiazide 12.5 mg capsule Take 1 capsule by mouth once daily. solifenacin 10 mg tablet Take 0.5 tablets by mouth once daily. melatonin 10 mg cap Take 10 mg by mouth. ESOMEPRAZOLE MAGNESIUM (NEXIUM 24HR ORAL) Take by mouth. Social History Tobacco Use Smoking status: Former Current packs/day: 0.00 Average packs/day: 1.3 packs/day for 32.0 years (41.7 ttl pk-yrs) Types: Cigarettes Start date: 03/10/1955 Quit date: 07/14/1986 Years since quittin.9 Smokeless tobacco: Never Tobacco comments: Parents did not smoke in childhood home. Spouse non smoker. Vaping Use Vaping status: Never Used Substance Use Topics Alcohol use: Yes Comment: Occasional. Drug use: No Family History Problem Relation Age of Onset Alzheimer's Disease Mother Arthritis Father Stroke Father Breast Cancer Maternal Aunt other (lung cancer) Maternal Aunt Prostate Cancer Son Stroke Other Fatal. Brother in law. PAST SURGICAL HISTORY Procedure Laterality Date ARTHROPLASTY GLENOHUMRL JT HEMIARTHROPLASTY Left 03/2022 Arthroplasty, shoulder BREAST LUMPECTOMY HX Right 09/13/2021 U/S guided open right breast lumpectomy COLONOSCOPY FLX DX W/COLLJ SPEC WHEN PFRMD 03/26/2007 Colonoscopy DILATION & CURETTAGE DX&/THER NONOBSTETRIC Dilation & curettage LAPAROSCOPY SURG CHOLECYSTECTOMY 1979 Cholecystectomy, lap SKIN BIOPSY HX I reviewed the past medical history, family history, social history and surgical history with changes noted above and updated in EMR. IMMUNIZATIONS Immunization History Administered Date(s) Administered COVID-19 original vaccine, full dose, monovalent (MODERNA) 08/03/2020 08/31/2020 05/17/2021 11/01/2021 influenza (HD-IIV3) vaccine, age 65+ yr, high dose, trivalent, PF (FLUZONE HIGH-DOSE) 05/19/2015 06/03/2016 04/08/2017 04/17/2018 05/14/2019 04/14/2023 influenza (HD-IIV4) vaccine, age 65+ yr, high dose, quadrivalent, PF (FLUZONE HIGH-DOSE) 05/06/2020 05/05/2021 05/14/2022 influenza (IIV3) vaccine, age 6 mo - 64 yr, trivalent (AFLURIA, FLULAVAL, FLUVIRIN, FLUZONE) 04/18/2014 influenza vaccine, unspecified formulation 04/21/2013 pneumococcal conjugate (PCV13) vaccine, 13 valent (PREVNAR 13) 05/19/2015 pneumococcal polysaccharide (PPV23) vaccine, 23 valent (PNEUMOVAX 23) 05/17/2008 respiratory syncytial virus (RSV) vaccine, adjuvanted (AREXVY) 05/20/2024 tetanus diphtheria (Td) vaccine, age 7+ yr, 5 Lf tetanus, PF (TENIVAC) 02/04/2016 04/28/2024 tetanus diphtheria pertussis (Tdap) vaccine, age 7+ yr (ADACEL, BOOSTRIX) 02/04/2016 ROS: All other systems reviewed as negative except for what is noted in HPI and review of systems. PHYSICAL EXAMINATION: BP 140/76 Pulse 85 Resp 16 Ht 160 cm (5' 3) Wt 68.9 kg (152 lb) SpO2 96% BMI 26.93 kg/m Gen: No acute distress. Cooperative with examination. HEENT: Normocephalic. Sclera, conjunctiva clear. Oral hygeine and dentition good. No thrush. Resp: No stridor, accessory respiratory muscle use, supra-sternal or intercostal retractions. No wheezes, crackles, or rhonchi. CV: Regular rythm. Heart tones normal. Radial pulses normal. Ext: Warm and well perfused. No clubbing, cyanosis, edema. Skin: No rash, ecchymoses. Neuro: Mental status normal. Affect normal. No tremor. DATA: Laboratory and Imaging: Last Spirometry SPIROMETRY BASELINE ONLY Collected: 06/23/2024 10:47 AM (Preliminary result) Narrative: [facility] [address] [place] [address] Test Date: 2024-06-23 Pat Name: MARSHALL WU Department: Room: Gender: Female Medical File Clerk: : 1935 Requested By: Order Number: [id number] Reading MD: Interpretive Statements Medications and Allergies were reviewed for possible drug interactions per policy. No contraindications or sensitivities were noted. Meds taken: Symbicort 1.5 /hours before testing. Current ATS/ERS acceptability and repeatability standards for spirometry met. Start of test and EOFE criteria met. IMPRESSION: ID: [id number] Name: MARSHALL WU Race: White Ht: 63.00 in Wt: 152.00 lbs Age: 89 Gender: Female : 1935 Dx: COPD_ Smoking Hx: Non-smoker Doctor: KAMILLE RIZO Test Date: 06/23/2024 Site: Tech: Farhat Cornelius PRE-BRONCH POST-BRONCH Pre LLN Pred ULN %Pred Post %Pred %Chg SPIROMETRY FVC (L) 1.91 1.57 2.32 3.10 82 FEV1 (L) 1.20 1.15 1.74 2.29 69 FEV1/FVC 0.63 0.63 0.77 0.89 81 PEF L/s (L/sec) 3.42 2.12 3.78 5.44 90 FEF50 (L/sec) 0.85 0.97 2.58 4.19 32 FIF50 (L/sec) 1.42 FEF50/FIF50 0.60 90-100 FIVC (L) 1.70 WCI13-57 (L/sec) 0.54 0.51 1.32 2.61 40 Time (sec) 7.91 FET PEF (sec) 0.08 BETH (L) 0.05 Vol Extrap % (%) 3 Comments: Medications and Allergies were reviewed for possible drug interactions per policy. No contraindications or sensitivities were noted. Meds taken: Symbicort 1.5 /hours before testing. Current ATS/ERS acceptability and repeatability standards for spirometry met. Start of test and EOFE criteria met. CT Chest other findings: Last CT Chest - Impression Only No resulted procedures found. Last XR Chest - Impression Only XR CHEST 2V FRONTAL/LAT Exam End: 05/13/2023 12:13 PM (Final result) Impression: IMPRESSION: No acute radiographic abnormality. Adult High School Instructor: ANDRZEJ Transcribe Date/Time: May 13 2023 12:20P... ASSESSMENT/PLAN: 1. 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) - ICD9: 496, ICD10: J44.9 (primary diagnosis) Doing well despite decline in FEV1 today. Continue Symbicort 2 inhalations twice daily. Rinse mouth after each use to help prevent oral thrush. Albuterol HFA inhaler, 2 inhalations 10-15 minutes prior to activities associated with shortness of breath, and as needed for rescue relief of shortness of breath or wheezing, up to 4 times daily. 2. Former smoker - ICD9: V15.82, ICD10: Z87.891 Patient does not qualify for lung cancer screening based on age and smoking cessation duration. Portions of this documentation were copied and pasted from previous office visit notes in order to provide a cohesive continuity of the history. The note has been reviewed and edited and updated as necessary. Kamille Rizo PA-C documented in this encounter [facility] 06-23-2024 Note HNO ID: [id number] Author: FARHAT CORNELIUS RPFT Service: ? Author Type: Respiratory Therapist Type: Progress Notes Filed: 06/23/2024 10:53 Note Text: PULM FUNCTION: Provider: Kamille Rizo PA-C Assisting Tech: Farhat Cornelius RPFT Spirometry: 1 [facility] 06-23-2024 History of Present illness Narrative PULM FUNCTION: Provider: Kamille Rizo PA-C Assisting Tech: Farhat Cornelius RPFT Spirometry: 1 documented in this encounter [facility] 06-23-2024 Telephone encounter Note Spoke with [facility] and it is there that she can pick it up. It will not go thorough insurance since [employer] already ran and shipped her order. She will need to contact insurance for override or pay farmer. Called to patient and explained situation. Patient is going to go to [facility] and see how much will cost and decide what she wants to do. [facility] 06-23-2024 Miscellaneous Notes Spoke with Tulio and it is there that she can pick it up. It will not go thorough insurance since [facility] already ran and shipped her order. She will need to contact insurance for override or pay farmer. Called to patient and explained situation. Patient is going to go to [employer] and see how much will cost and decide what she wants to do. documented in this encounter [facility] 06-21-2024 Telephone encounter Note The following approved medication requests have been transmitted electronically. Requested Prescriptions Pending Prescriptions Disp Refills lisinopril (ZESTRIL) 30 mg tablet 90 tablet 3 Sig: Take 1 tablet by mouth once daily. Nadia Brambila APRN.CNP [facility] 06-21-2024 Miscellaneous Notes The following approved medication requests have been transmitted electronically. Requested Prescriptions Pending Prescriptions Disp Refills lisinopril (ZESTRIL) 30 mg tablet 90 tablet 3 Sig: Take 1 tablet by mouth once daily. Nadia Brambila APRN.CNP Patient reports her lisinopril has not shown up yet from mail order. Has been out of medication for 2 days. Asking provider to send short supply to [facility]. Pended. Last ov: 04-29-24 Next ov: 10-29-24 documented in this encounter [facility] 06-21-2024 Telephone encounter Note Patient reports her lisinopril has not shown up yet from mail order. Has been out of medication for 2 days. Asking provider to send short supply to [facility]. Pended. Last ov: 04-29-24 Next ov: 10-29-24 [facility] 06-17-2024 Note HNO ID: [id number] Author: SERGEI LAUREN RN Service: ? Author Type: Registered Nurse Type: Progress Notes Filed: 06/17/2024 12:21 Note Text: CDM Telephonic Outreach Provider Action/FYI Contacted for: Routine Telephonic Outreach Contact made with patient: No, left message. Sergei Lauren RN June 17, 2024 12:21 PM [facility] 06-17-2024 History of Present illness Narrative CDM Telephonic Outreach Provider Action/FYI Contacted for: Routine Telephonic Outreach Contact made with patient: No, left message. Sergei Lauren RN June 17, 2024 12:21 PM documented in this encounter [facility] 06-17-2024 Note Patient Outreach (AM [facility]) ---- MARSHALL WU ([id number]) 1935 F Date Time Provider Department 06/17/24 SERGEI LAUREN [facility] During your visit today, we recorded the following information about you: Sergei Lauren RN 06/17/2024 12:21 PM Signed CD Telephonic Outreach Provider Action/FYI Contacted for: Routine Telephonic Outreach Contact made with patient: No, left message. Sergei Lauren RN June 17, 2024 12:21 PM Allergies As of Date: 06/17/2024 Noted Allergy Reaction CIPROFLOXACIN 03/14/2019 14 - Other: See Comments Comments: Ankle and achilles pain SEASONAL ALLERGIES 12/19/2016 5 - Intolerance Date Reviewed: 04/29/2024 Reviewed by: Nadia Brambila APRN.STUDY LEAD - Fully Assessed Reason for Visit: community monitoring outreach [Other] Cmt: CDM-Telephonic outreach Prescriptions as of 07/15/2024 - lisinopril (ZESTRIL) 30 mg tablet Take 1 tablet by mouth once daily. - atorvastatin (LIPITOR) 20 mg tablet TAKE 1 TABLET DAILY AT BEDTIME FOR CHOLESTEROL - MAGNESIUM ORAL Take by mouth. - rOPINIRole (REQUIP) 1 mg tablet Take 1 tablet by mouth daily at bedtime. - lisinopril (ZESTRIL) 30 mg tablet Take 1 tablet by mouth once daily. - budesonide-formoterol (SYMBICORT) 160-4.5 mcg/actuation inhaler Inhale 2 Puffs as instructed two times a day. - hydroCHLOROthiazide 12.5 mg capsule Take 1 capsule by mouth once daily. - solifenacin 10 mg tablet Take 0.5 tablets by mouth once daily. - melatonin 10 mg cap Take 10 mg by mouth. - ESOMEPRAZOLE MAGNESIUM (NEXIUM 24HR ORAL) Take by mouth. 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 Author Type: Registered Nurse Type: Progress Notes Filed: 06/16/2024 15:52 Note Text: CD Telephonic Outreach Provider Action/FYI Contacted for: Routine Telephonic Outreach Contact made with patient: No, left message. Sergei Lauren RN June 16, 2024 3:52 PM [facility] 06-16-2024 History of Present illness Narrative CD Telephonic Outreach Provider Action/FYI Contacted for: Routine Telephonic Outreach Contact made with patient: No, left message. Sergei Lauren RN June 16, 2024 3:52 PM documented in this encounter [facility] 06-16-2024 Note Patient Outreach ([facility]) ---- MARSHALL WU ([id number]) 1935 F Date Time Provider Department 06/16/24 SERGEI LAUREN [facility] During your visit today, we recorded the following information about you: Sergei Lauren RN 06/16/2024 3:52 PM Signed [facility] Telephonic Outreach Provider Action/FYI Contacted for: Routine Telephonic Outreach Contact made with patient: No, left message. Sergei Lauren RN June 16, 2024 3:52 PM Allergies As of Date: 06/16/2024 Noted Allergy Reaction CIPROFLOXACIN 03/14/2019 14 - Other: See Comments Comments: Ankle and achilles pain SEASONAL ALLERGIES 12/19/2016 5 - Intolerance Date Reviewed: 04/29/2024 Reviewed by: Nadia Brambila APRN.STUDY LEAD - Fully Assessed Reason for Visit: community monitoring outreach [Other] Cmt: CDM-Telephonic outreach Prescriptions as of 06/16/2024 - atorvastatin (LIPITOR) 20 mg tablet TAKE 1 TABLET DAILY AT BEDTIME FOR CHOLESTEROL - MAGNESIUM ORAL Take by mouth. - rOPINIRole (REQUIP) 1 mg tablet Take 1 tablet by mouth daily at bedtime. - lisinopril (ZESTRIL) 30 mg tablet Take 1 tablet by mouth once daily. - budesonide-formoterol (SYMBICORT) 160-4.5 mcg/actuation inhaler Inhale 2 Puffs as instructed two times a day. - hydroCHLOROthiazide 12.5 mg capsule Take 1 capsule by mouth once daily. - solifenacin 10 mg tablet Take 0.5 tablets by mouth once daily. - melatonin 10 mg cap Take 10 mg by mouth. - ESOMEPRAZOLE MAGNESIUM (NEXIUM 24HR ORAL) Take by mouth. 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 Author Type: Registered Nurse Type: Progress Notes Filed: 05/19/2024 12:19 Note Text: CDM Telephonic Outreach Provider Action/FYI Contacted for: Routine Telephonic Outreach Contact made with patient: No, left message. Sergei Lauren RN May 19, 2024 12:19 PM [facility] 05-19-2024 History of Present illness Narrative [facility] Telephonic Outreach Provider Action/FYI Contacted for: Routine Telephonic Outreach Contact made with patient: No, left message. Sergei Lauren RN May 19, 2024 12:19 PM documented in this encounter [facility] 05-19-2024 Note Patient Outreach ([facility]) ---- MARSHALL WU ([id number]) 1935 F Date Time Provider Department 05/19/24 SERGEI LAUREN [facility] During your visit today, we recorded the following information about you: Sergei Lauren RN 05/19/2024 12:19 PM Signed [facility] Telephonic Outreach Provider Action/FYI Contacted for: Routine Telephonic Outreach Contact made with patient: No, left message. Sergei Lauren RN May 19, 2024 12:19 PM Allergies As of Date: 05/19/2024 Noted Allergy Reaction CIPROFLOXACIN 03/14/2019 14 - Other: See Comments Comments: Ankle and achilles pain SEASONAL ALLERGIES 12/19/2016 5 - Intolerance Date Reviewed: 04/29/2024 Reviewed by: NADIA BRAMBILA - Fully Assessed Reason for Visit: community monitoring outreach [Other] Cmt: CD-Telephonic outreach Prescriptions as of 05/19/2024 - atorvastatin (LIPITOR) 20 mg tablet TAKE 1 TABLET DAILY AT BEDTIME FOR CHOLESTEROL - MAGNESIUM ORAL Take by mouth. - rOPINIRole (REQUIP) 1 mg tablet Take 1 tablet by mouth daily at bedtime. - lisinopril (ZESTRIL) 30 mg tablet Take 1 tablet by mouth once daily. - budesonide-formoterol (SYMBICORT) 160-4.5 mcg/actuation inhaler Inhale 2 Puffs as instructed two times a day. - hydroCHLOROthiazide 12.5 mg capsule Take 1 capsule by mouth once daily. - solifenacin 10 mg tablet Take 0.5 tablets by mouth once daily. - melatonin 10 mg cap Take 10 mg by mouth. - ESOMEPRAZOLE MAGNESIUM (NEXIUM 24HR ORAL) Take by mouth. 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 Author Type: Registered Nurse Type: Progress Notes Filed: 05/18/2024 11:22 Note Text: [facility] Telephonic Outreach Provider Action/FYI Contacted for: Routine Telephonic Outreach Contact made with patient: No, left message. Sergei Lauren RN May 18, 2024 11:22 AM [facility] 05-18-2024 History of Present illness Narrative [facility] Telephonic Outreach Provider Action/FYI Contacted for: Routine Telephonic Outreach Contact made with patient: No, left message. Sergei Lauren RN May 18, 2024 11:22 AM documented in this encounter [facility] 05-18-2024 Note Patient Outreach (AM [facility]) ---- MARSHALL WU ([id number]) 1935 F Date Time Provider Department 05/18/24 SERGEI LAUREN [facility] During your visit today, we recorded the following information about you: Sergei Lauren RN 05/18/2024 11:22 AM Signed [facility] Telephonic Outreach Provider Action/FYI Contacted for: Routine Telephonic Outreach Contact made with patient: No, left message. Sergei Lauren RN May 18, 2024 11:22 AM Allergies As of Date: 05/18/2024 Noted Allergy Reaction CIPROFLOXACIN 03/14/2019 14 - Other: See Comments Comments: Ankle and achilles pain SEASONAL ALLERGIES 12/19/2016 5 - Intolerance Date Reviewed: 04/29/2024 Reviewed by: Nadia Brambila APRN.STUDY LEAD - Fully Assessed Reason for Visit: community monitoring outreach [Other] Cmt: CD-Telephonic outreach Prescriptions as of 05/18/2024 - atorvastatin (LIPITOR) 20 mg tablet TAKE 1 TABLET DAILY AT BEDTIME FOR CHOLESTEROL - MAGNESIUM ORAL Take by mouth. - rOPINIRole (REQUIP) 1 mg tablet Take 1 tablet by mouth daily at bedtime. - lisinopril (ZESTRIL) 30 mg tablet Take 1 tablet by mouth once daily. - budesonide-formoterol (SYMBICORT) 160-4.5 mcg/actuation inhaler Inhale 2 Puffs as instructed two times a day. - hydroCHLOROthiazide 12.5 mg capsule Take 1 capsule by mouth once daily. - solifenacin 10 mg tablet Take 0.5 tablets by mouth once daily. - melatonin 10 mg cap Take 10 mg by mouth. - ESOMEPRAZOLE MAGNESIUM (NEXIUM 24HR ORAL) Take by mouth. 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 If received in office, she would be responsible for full cost of medication. Nurse visit appt for 05/19/24 cancelled at this time. Josiane Lynn LPN [facility] 05-17-2024 Miscellaneous Notes Left detailed message for pt advising that she would need to receive RSV vaccine at pharmacy d/t insurance coverage (Medicare). If received in office, she would be responsible for full cost of medication. Nurse visit appt for 05/19/24 cancelled at this time. Josiane Lynn LPN documented in this encounter [facility] 05-17-2024 Telephone encounter Note The following approved medication requests have been transmitted electronically. Requested Prescriptions Pending Prescriptions Disp Refills atorvastatin (LIPITOR) 20 mg tablet 90 tablet 3 Sig: TAKE 1 TABLET DAILY AT BEDTIME FOR CHOLESTEROL Nadia A AJ Brambila [facility] 05-17-2024 Miscellaneous Notes The following approved medication requests have been transmitted electronically. Requested Prescriptions Pending Prescriptions Disp Refills atorvastatin (LIPITOR) 20 mg tablet 90 tablet 3 Sig: TAKE 1 TABLET DAILY AT BEDTIME FOR CHOLESTEROL Nadia A AJ Brambila Prescription Refill Information The patient has been identified by name and date of : Yes Caregiver verified no other encounters exist for this prescription request: Yes Caregiver confirmed with patient/requestor that no other refills are due, in the near future, with this provider at this time: No The last office visit in the department: 04/29/24 Does the patient have a future office visit with this provider/department: Yes Requested Prescriptions Pending Prescriptions Disp Refills atorvastatin (LIPITOR) 20 mg tablet 90 tablet 3 Sig: TAKE 1 TABLET DAILY AT BEDTIME FOR CHOLESTEROL Calista Quintana MA May 17, 2024 9:43 AM documented in this encounter [facility] 05-17-2024 Telephone encounter Note Prescription Refill Information The patient has been identified by name and date of : Yes Caregiver verified no other encounters exist for this prescription request: Yes Caregiver confirmed with patient/requestor that no other refills are due, in the near future, with this provider at this time: No The last office visit in the department: 04/29/24 Does the patient have a future office visit with this provider/department: Yes Requested Prescriptions Pending Prescriptions Disp Refills atorvastatin (LIPITOR) 20 mg tablet 90 tablet 3 Sig: TAKE 1 TABLET DAILY AT BEDTIME FOR CHOLESTEROL Calista Quintana MA May 17, 2024 9:43 AM [facility] 05-12-2024 History of Present illness Narrative Images from the original note were not included. DATE OF SERVICE: 05/12/2024 PATIENT NAME: Marshall Wu : 1935 AGE: 89 y.o. CLINIC NUMBER: [id number] Visit type: Established patient Chief Complaint Patient presents with Skin Lesion (LMS) Subjective HISTORY OF PRESENT ILLNESS: Marshall Wu is a 89 y.o. with a history of skin cancer who presents today for a skin check. 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 The patient has no family history of skin cancer, no family history of melanoma, there is a history of excessive sun exposure, patient has never used tanning beds, does not use sunscreen regularly. Re-check Aks. Tx: 5 lesions on the R wrist x1, L cheek x2, R cheek x2 treated with LN2. Check spot on L jehovah's witness x 1 month. Pt states the lesion was raised and scaly, but has since calmed down. Has not bled. History of pacemaker/ defibrillator? No History of HIV/ Hep C? No Allergies to Lidocaine, Epinephrine, Latex or Adhesive? No Review of Systems Dermatology: as per HPI, otherwise negative There were no vitals filed for this visit. PHYSICAL EXAM: GENERAL APPEARANCE:?alert and oriented x3, well developed and well nourished. PSYCH: appropriate mood and affect LYMPHATIC: no palpable cervical, supraclavicular or axillae adenopathy. DERMATOLOGY: Please see diagram of patient examination (all noted lesions were examined dermoscopically; all measured lesions are pigmented macules with benign nevus patterns, unless otherwise noted) 1. Neoplasm of uncertain behavior of skin Right Upper Arm 7mm irregular pigmented macule Skin Biopsy Type of biopsy: tangential Informed consent: discussed and consent obtained Timeout: patient name, date of , surgical site, and procedure verified Anesthesia: the lesion was anesthetized in a standard fashion Anesthetic: 1% lidocaine w/ epinephrine 1-100,000 buffered w/ 8.4% NaHCO3 Instrument used: DermaBlade Hemostasis achieved with: electrodesiccation Outcome: patient tolerated procedure well Post-procedure details: wound care instructions given Specimen A - Tissue exam Differential Diagnosis: Atypical pigmented macule Check Margins: No Biopsy recommended. Patient expresses understanding and is in agreement with the plan. Biopsy (x1) obtained today. Patient educated that we will call with the biopsy results within 2 weeks. Care instructions reviewed and written instructions provided to patient. 2. Actinic keratoses (3) Left Chest, Left Lateral Cheek, Right Malar Cheek [place] scaly papules Patient educated on actinic keratosis and the possibility of transformation into SCC. Treatment options are discussed with risks and benefits reviewed. Patient is agreeable to start treatment with Efudex (fluorouracil) . Rx: Efudex (fluorouracil) Cream Apply a very thin layer to the L jehovah's witness twice daily x 2 weeks. Patient thoroughly educated about treatment with Efudex, including risks, benefits and detailed application instructions. The severity of your reaction to this medication cannot be predicted. It is normal to have some redness/ irritation and crusting, but to stop treatment if patient develops any pain, open sores, weeping, oozing or ulceration. If any issues with treatment, stop medication and contact office. The skin must be protected from sun exposure; use clothing, sunscreen, hats, etc. Apply 15-20 minutes before any other creams or makeup. Apply at least 1 hour before bedtime in order for medication to soak in. Do not get into eyes. Wash hands thoroughly after application. Cryotherapy Actinic Keratosis (focal lesions were treated with cryotherapy) Medical Necessity: It was explained to the patient that actinic keratoses are precancerous. Consent: The patient understood all the risks and benefits prior to treatment. The risks explained included scarring, hyper and/or hypopigmentation. Although this treatment is highly effective, recurrences do occur and this was explained to the patient. The patient further understood that these lesions are precancerous and may develop into a malignancy. Number of lesions treated/ location: R cheek x1, L chest x1 Method: Liquid nitrogen was used to treat the lesion(s) with two freeze-thaw cycles. Post-op: The patient was instructed to clean the site normally twice a day. Signs of infection were reviewed and patient was instructed to call if he/ she develops increasing pain, purulent drainage, or beefy redness. The patient was informed that a blister may occur at the cryo site and that this is an expected event. Sun protection was reviewed and patient advised to use sunscreen with SPF 30 or greater on exposed skin when outdoors. Post-op instructions were given orally and in writing. Cryotherapy, skin lesion - Left Chest, Right Malar Cheek 3. Multiple benign melanocytic nevi of both upper extremities, both lower extremities, and trunk Multiple uniformly pigmented brown macules with regular network pattern on dermoscopy; please see diagram under patient examination Reassured that this is a benign lesion and does not require any treatment. Educated that if the lesion changes color, becomes larger, bleeds, becomes bothersome or painful then it should be reevaluated. Patient expresses understanding and is agreeable to plan. Patient advised to perform monthly skin exams; checking the skin for any new or changing lesions. Any lesions that are new, elevated, firm and/or growing should be evaluated in our office. Also look for ABCDEs of Melanoma (warning signs): Asymmetry- the appearance of one side of the mole doesn't look like the other side. Borders- the borders of the mole are jagged, notched or smeared. Color- there are multiple colors in the mole, or it has changed colors. It can become darker, red or even lose pigment. Diameter- diameter greater than 6mm or the size of a pencil eraser. Evolution- Any change or evolving in size, shape or color of a mole. Also, any new symptom like bleeding, pain or itching may be a warning sign. You can visit the [employer] at skincancer.org for more information on melanoma and other skin cancers. 4. Seborrheic keratosis [place]-brown waxy papules Reassured that this is a benign lesion and does not require any treatment. Educated that if the lesion changes color, becomes larger, bleeds, becomes bothersome or painful then it should be reevaluated. Patient expresses understanding and is agreeable to plan. 5. History of melanoma No evidence of recurrence on exam today. Patient advised to perform monthly skin exams; checking the skin for any new or changing lesions. Any lesions that are new, elevated, firm and/or growing should be evaluated in our office. Also look for ABCDEs of Melanoma (warning signs): Asymmetry- the appearance of one side of the mole doesn't look like the other side. Borders- the borders of the mole are jagged, notched or smeared. Color- there are multiple colors in the mole, or it has changed colors. It can become darker, red or even lose pigment. Diameter- diameter greater than 6mm or the size of a pencil eraser. Evolution- Any change or evolving in size, shape or color of a mole. Also, any new symptom like bleeding, pain or itching may be a warning sign. 6. History of nonmelanoma skin cancer No evidence of recurrence on exam today. Educated on signs of skin cancer, skin cancer causes, prevention, and risk of developing skin cancers in the future. Sun protection measures reviewed, recommended monthly self skin exams and annual full skin exam. 7. History of atypical nevus No evidence of recurrence on exam today. Educated on etiology and signs of atypical nevi, treatment, risk of malignant transformation, and importance of sun protection. Signs of skin cancer/ABCDE's of melanoma reviewed. Recommended monthly self skin exams and annual full skin exams. I spent a total of 32 minutes on the day of the visit. [x]Preparing to see the patient [x]Obtaining/reviewing separately obtained history [x]Performing exam/evaluation [x]Counseling patient/family/caregiver [x]Ordering medication/tests/procedures []Referring and communicating with other health professionals [x]Documenting clinical information in the EMR []Independently interpreting results and communicating results to patient/family/caregiver []Care coordination Follow up in about 6 months (around 11/10/2024). Lora Santiago MD 05/13/24 11:55 AM REFERRING MD: No referring provider defined for this encounter. documented in this encounter [facility] 05-12-2024 Instructions Denise Melendez MA - 05/12/2024 12:00 PM EDT BIOPSY / SURGICAL AFTERCARE 1. If a dressing is in place, please leave it for 24 hours unless given other instructions. 2. After that time, remove the initial bandage, and cleanse the area with a mild, fragrance free soap such as Dove, Cetaphil, or CeraVe. 3. Apply Vaseline to the area and cover with a new bandage. Please do not use Neosporin, Polysporin, or Bacitracin, as these may cause unwanted allergic reactions in some patients, and are not necessary for good healing. 4. Repeat the above steps every day for 7 days unless otherwise directed by physician or nurse. 5. If any bleeding occurs, use a clean cotton or gauze, apply firm, direct pressure to the area for 10 to 15 minutes. If the bleeding does not stop, call our office at [phone]. 6. The wound should improve daily. If you notice any increased redness, swelling, drainage, warmth, or pain in the area, please notify our office. Please be advised that it can take up to 2 weeks for these sites to heal. In some patients it may take even longer depending on location (lower legs / feet) and / or if the patient has history of diabetes. Our office will notify you of the results in about 2 weeks. documented in this encounter [facility] 05-06-2024 Telephone encounter Note Order placed. Please have pt. Call to schedule or fax to [facility] 05-06-2024 Miscellaneous Notes Order placed. Please have pt. Call to schedule or fax to [facility] Patient was seen 04/[address] consult and [facility] Angelika Bolton MA documented in this encounter [facility] 05-06-2024 Telephone encounter Note Patient was seen 04/[address] consult and we can [facility] Angelika Bolton MA [facility] 04-29-2024 Instructions Nadia Brambila APRN.CNP - 04/29/2024 3:06 PM EDT 1) Clean gently and pat dry, cover with non-stick dressing or Vaseline and gauze 2) Follow up in 6 months documented in this encounter [facility] 04-29-2024 Note HNO ID: [id number] Author: NADIA BRAMBILA APRN.CNP Service: ? Author Type: Clinical Nurse Specialist Type: Progress Notes Filed: 04/29/2024 15:06 Note Text: This is a 89 year old female who presents today with: Patient presents with: Laceration: Right knee Follow Up: [facility] Follow up HISTORY OF PRESENT ILLNESS: Marshall Wu is a 89 year old female. Patient presents with: Laceration: Right knee Follow Up: [facility] Follow up Tripped yesterday and got 2 large skin tears to right knee and left forearm. Bled through. Left shoulder bruised. Feels stiff all over. Did require steri strips and TDap PAST MEDICAL HISTORY: PAST MEDICAL HISTORY Diagnosis Date Aortic sclerosis 2012 Found on echo Arthritis of foot Bilateral heel spurs. 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 rOPINIRole (REQUIP) 1 mg tablet Take 1 tablet by mouth daily at bedtime. polyethylene glycol 3350 (MIRALAX) 17 gram/dose powder TAKE DAILY NEEDED FOR CONSTIPATION lisinopril (ZESTRIL) 30 mg tablet Take 1 tablet by mouth once daily. budesonide-formoterol (SYMBICORT) 160-4.5 mcg/actuation inhaler Inhale 2 Puffs as instructed two times a day. hydroCHLOROthiazide 12.5 mg capsule Take 1 capsule by mouth once daily. solifenacin 10 mg tablet Take 0.5 tablets by mouth once daily. atorvastatin (LIPITOR) 20 mg tablet TAKE 1 TABLET DAILY AT BEDTIME FOR CHOLESTEROL melatonin 10 mg cap Take 10 mg by mouth. ESOMEPRAZOLE MAGNESIUM (NEXIUM 24HR ORAL) Take by mouth. No current facility-administered medications for this visit. FAMILY HISTORY Problem Relation Age of Onset Alzheimer's Disease Mother Arthritis Father Stroke Father Breast Cancer Maternal Aunt other (lung cancer) Maternal Aunt Prostate Cancer Son Stroke Other Fatal. Brother in law. Social History Tobacco Use Smoking status: Former Current packs/day: 0.00 Average packs/day: 1.3 packs/day for 32.0 years (41.7 ttl pk-yrs) Types: Cigarettes Start date: 03/10/1955 Quit date: 07/14/1986 Years since quittin.8 Smokeless tobacco: Never Tobacco comments: Parents did not smoke in childhood home. Spouse non smoker. Vaping Use Vaping status: Never Used Substance Use Topics Alcohol use: Yes Comment: Occasional. Drug use: No EXAM: BP 128/70 Pulse 95 Temp 36.5 ?C (97.7 ?F) (Tympanic) Wt 68.7 kg (151 lb 7.3 oz) SpO2 96% BMI 26.83 kg/m? Right knee with a skin tear the size of an egg, no longer bleeding Left forearm a little larger that is no longer bleeding. Steri strips intact. No redness, drainage, sensation intact, rapid capillary refill distally LABS: ASSESSMENT/PLAN: 1. Skin tear of left forearm without complication, sequela - ICD9: 906.1, ICD10: S51.812S (primary diagnosis) Cleansed and non-adherent dressing applie 2. Skin tear of right lower leg without complication, subsequent encounter - ICD9: V58.89, 891.0, ICD10: S81.811D Cleansed and non-adherent dressing applied Discussed treatment plan and patient voices understanding. Patient's questions answered appropriately. Medications and potential side effects were discussed and patient voices understanding. Return to the office as scheduled or as needed for worsening/no improvement. Nadia Brambila APRN.INDRA Brambila APRN.INDRA [facility] 04-29-2024 History of Present illness Narrative This is a 89 year old female who presents today with: Patient presents with: Laceration: Right knee Follow Up: [facility] Follow up HISTORY OF PRESENT ILLNESS: Marshall Wu is a 89 year old female. Patient presents with: Laceration: Right knee Follow Up: [facility] Follow up Tripped yesterday and got 2 large skin tears to right knee and left forearm. Bled through. Left shoulder bruised. Feels stiff all over. Did require steri strips and TDap PAST MEDICAL HISTORY: PAST MEDICAL HISTORY Diagnosis Date Aortic sclerosis 2012 Found on echo Arthritis of foot Bilateral heel spurs. 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 PAST SURGICAL HISTORY Procedure Laterality Date ARTHROPLASTY GLENOHUMRL JT HEMIARTHROPLASTY Left 03/2022 Arthroplasty, shoulder BREAST LUMPECTOMY HX Right 09/13/2021 U/S guided open right breast lumpectomy COLONOSCOPY FLX DX W/COLLJ SPEC WHEN PFRMD 03/26/2007 Colonoscopy DILATION & CURETTAGE DX&/THER NONOBSTETRIC Dilation & curettage LAPAROSCOPY SURG CHOLECYSTECTOMY 1979 Cholecystectomy, lap SKIN BIOPSY HX ALLERGIES Ciprofloxacin and Seasonal Allergies MEDICATIONS Current Outpatient Medications Medication Sig MAGNESIUM ORAL Take by mouth. rOPINIRole (REQUIP) 1 mg tablet Take 1 tablet by mouth daily at bedtime. polyethylene glycol 3350 (MIRALAX) 17 gram/dose powder TAKE DAILY NEEDED FOR CONSTIPATION lisinopril (ZESTRIL) 30 mg tablet Take 1 tablet by mouth once daily. budesonide-formoterol (SYMBICORT) 160-4.5 mcg/actuation inhaler Inhale 2 Puffs as instructed two times a day. hydroCHLOROthiazide 12.5 mg capsule Take 1 capsule by mouth once daily. solifenacin 10 mg tablet Take 0.5 tablets by mouth once daily. atorvastatin (LIPITOR) 20 mg tablet TAKE 1 TABLET DAILY AT BEDTIME FOR CHOLESTEROL melatonin 10 mg cap Take 10 mg by mouth. ESOMEPRAZOLE MAGNESIUM (NEXIUM 24HR ORAL) Take by mouth. No current facility-administered medications for this visit. FAMILY HISTORY Problem Relation Age of Onset Alzheimer's Disease Mother Arthritis Father Stroke Father Breast Cancer Maternal Aunt other (lung cancer) Maternal Aunt Prostate Cancer Son Stroke Other Fatal. Brother in law. Social History Tobacco Use Smoking status: Former Current packs/day: 0.00 Average packs/day: 1.3 packs/day for 32.0 years (41.7 ttl pk-yrs) Types: Cigarettes Start date: [birth year]/10/1954 Quit date: 07/14/1986 Years since quittin.8 Smokeless tobacco: Never Tobacco comments: Parents did not smoke in childhood home. Spouse non smoker. Vaping Use Vaping status: Never Used Substance Use Topics Alcohol use: Yes Comment: Occasional. Drug use: No EXAM: BP 128/70 Pulse 95 Temp 36.5 C (97.7 F) (Tympanic) Wt 68.7 kg (151 lb 7.3 oz) SpO2 96% BMI 26.83 kg/m Right knee with a skin tear the size of an egg, no longer bleeding Left forearm a little larger that is no longer bleeding. Steri strips intact. No redness, drainage, sensation intact, rapid capillary refill distally LABS: ASSESSMENT/PLAN: 1. Skin tear of left forearm without complication, sequela - ICD9: 906.1, ICD10: S51.812S (primary diagnosis) Cleansed and non-adherent dressing applie 2. Skin tear of right lower leg without complication, subsequent encounter - ICD9: V58.89, 891.0, ICD10: S81.811D Cleansed and non-adherent dressing applied Discussed treatment plan and patient voices understanding. Patient's questions answered appropriately. Medications and potential side effects were discussed and patient voices understanding. Return to the office as scheduled or as needed for worsening/no improvement. AJ Menchaca APRN.CNP documented in this encounter [facility] 04-28-2024 Note HNO ID: [id number] Author: AUGIE MEDRANO PA Service: ? Author Type: Physician Business English Instructor Type: Progress Notes Filed: 04/28/2024 16:50 Note Text: This note was created using [place] [email or web address]. Subjective Marshall Wu is a 89 year old female. HPI 89-year-old female presents for fall and skin tear. Patient states she tripped in her home about an hour ago on carpet. She fell onto her carpet. She has skin tear to left forearm and right knee. She has a little bit of pain in the knee, otherwise no pain. She did not hit her head or lose consciousness. She does not take any blood thinners. She denies any other injuries or complaints. Last tetanus was 2016 PAST MEDICAL HISTORY Diagnosis Date Aortic sclerosis 2012 Found on echo Arthritis of foot Bilateral heel spurs. 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 rOPINIRole (REQUIP) 1 mg tablet Take 1 tablet by mouth daily at bedtime. polyethylene glycol 3350 (MIRALAX) 17 gram/dose powder TAKE DAILY NEEDED FOR CONSTIPATION lisinopril (ZESTRIL) 30 mg tablet Take 1 tablet by mouth once daily. budesonide-formoterol (SYMBICORT) 160-4.5 mcg/actuation inhaler Inhale 2 Puffs as instructed two times a day. hydroCHLOROthiazide 12.5 mg capsule Take 1 capsule by mouth once daily. solifenacin 10 mg tablet Take 0.5 tablets by mouth once daily. atorvastatin (LIPITOR) 20 mg tablet TAKE 1 TABLET DAILY AT BEDTIME FOR CHOLESTEROL melatonin 10 mg cap Take 10 mg by mouth. ESOMEPRAZOLE MAGNESIUM (NEXIUM 24HR ORAL) Take by mouth. FAMILY HISTORY Problem Relation Age of Onset Alzheimer's Disease Mother Arthritis Father Stroke Father Breast Cancer Maternal Aunt other (lung cancer) Maternal Aunt Prostate Cancer Son Stroke Other Fatal. Brother in law. Social History Tobacco Use Smoking status: Former Current packs/day: 0.00 Average packs/day: 1.3 packs/day for 32.0 years (41.7 ttl pk-yrs) Types: Cigarettes Start date: 03/10/1955 Quit date: 07/14/1986 Years since quittin.8 Smokeless tobacco: Never Tobacco comments: Parents did not smoke in childhood home. Spouse non smoker. Vaping Use Vaping status: Never Used Substance Use Topics Alcohol use: Yes Comment: Occasional. Drug use: No Review of Systems Constitutional: Negative for chills and fever. HENT: Negative for congestion, ear pain and sore throat. Respiratory: Negative for cough and shortness of breath. Cardiovascular: Negative for chest pain. Gastrointestinal: Negative for diarrhea and vomiting. Skin: Positive for wound. Objective BP 126/84 Pulse 95 Temp 36.3 ?C (97.3 ?F) (Tympanic) Resp 18 Wt 69 kg (152 lb 1.9 oz) SpO2 98% BMI 26.95 kg/m? Physical Exam Vitals and nursing note reviewed. Constitutional: General: She is not in acute distress. Appearance: Normal appearance. She is not toxic-appearing. Cardiovascular: Rate and Rhythm: Normal rate and regular rhythm. Pulmonary: Effort: Pulmonary effort is normal. Breath sounds: Normal breath sounds. Musculoskeletal: Left shoulder: No tenderness or bony tenderness. Left forearm: Laceration (Skin tear) present. No tenderness or bony tenderness. Cervical back: Normal. Thoracic back: Normal. Lumbar back: Normal. Right knee: Bony tenderness present. Normal range of motion. Tenderness present over the medial joint line. Normal pulse. Comments: Tenderness over right medial joint line. No obvious swelling or deformity. Normal flexion extension. Nontender hip or ankle. Skin tear noted to right knee. Please see skin. Nontender cervical, thoracic, lumbar spine. Able to ambulate. Skin tear noted to left forearm. No tenderness or bony tenderness. Normal ROM wrist, elbow, hand. No swelling or deformities. Nontender shoulder. Normal ROM left shoulder. Contusion noted to left shoulder. Nontender. Skin: General: Skin is warm and dry. Findings: Wound present. Comments: Small circular skin tear noted to right knee. No active bleeding. Normal ROM of knee. No drainage. Approximately 3.5 cm x 3.5 cm? skin tear noted to left forearm. Small amount of bruising present. Nontender forearm. No active blee (more content not included)... [facility] 04-28-2024 History of Present illness Narrative Images from the original note were not included. This note was created using [employer]. Subjective Marshall Wu is a 89 year old female. HPI 89-year-old female presents for fall and skin tear. Patient states she tripped in her home about an hour ago on carpet. She fell onto her carpet. She has skin tear to left forearm and right knee. She has a little bit of pain in the knee, otherwise no pain. She did not hit her head or lose consciousness. She does not take any blood thinners. She denies any other injuries or complaints. Last tetanus was 2016 PAST MEDICAL HISTORY Diagnosis Date Aortic sclerosis 2012 Found on echo Arthritis of foot Bilateral heel spurs. 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 rOPINIRole (REQUIP) 1 mg tablet Take 1 tablet by mouth daily at bedtime. polyethylene glycol 3350 (MIRALAX) 17 gram/dose powder TAKE DAILY NEEDED FOR CONSTIPATION lisinopril (ZESTRIL) 30 mg tablet Take 1 tablet by mouth once daily. budesonide-formoterol (SYMBICORT) 160-4.5 mcg/actuation inhaler Inhale 2 Puffs as instructed two times a day. hydroCHLOROthiazide 12.5 mg capsule Take 1 capsule by mouth once daily. solifenacin 10 mg tablet Take 0.5 tablets by mouth once daily. atorvastatin (LIPITOR) 20 mg tablet TAKE 1 TABLET DAILY AT BEDTIME FOR CHOLESTEROL melatonin 10 mg cap Take 10 mg by mouth. ESOMEPRAZOLE MAGNESIUM (NEXIUM 24HR ORAL) Take by mouth. FAMILY HISTORY Problem Relation Age of Onset Alzheimer's Disease Mother Arthritis Father Stroke Father Breast Cancer Maternal Aunt other (lung cancer) Maternal Aunt Prostate Cancer Son Stroke Other Fatal. Brother in law. Social History Tobacco Use Smoking status: Former Current packs/day: 0.00 Average packs/day: 1.3 packs/day for 32.0 years (41.7 ttl pk-yrs) Types: Cigarettes Start date: 03/10/1955 Quit date: 07/14/1986 Years since quittin.8 Smokeless tobacco: Never Tobacco comments: Parents did not smoke in childhood home. Spouse non smoker. Vaping Use Vaping status: Never Used Substance Use Topics Alcohol use: Yes Comment: Occasional. Drug use: No Review of Systems Constitutional: Negative for chills and fever. HENT: Negative for congestion, ear pain and sore throat. Respiratory: Negative for cough and shortness of breath. Cardiovascular: Negative for chest pain. Gastrointestinal: Negative for diarrhea and vomiting. Skin: Positive for wound. Objective BP 126/84 Pulse 95 Temp 36.3 C (97.3 F) (Tympanic) Resp 18 Wt 69 kg (152 lb 1.9 oz) SpO2 98% BMI 26.95 kg/m Physical Exam Vitals and nursing note reviewed. Constitutional: General: She is not in acute distress. Appearance: Normal appearance. She is not toxic-appearing. Cardiovascular: Rate and Rhythm: Normal rate and regular rhythm. Pulmonary: Effort: Pulmonary effort is normal. Breath sounds: Normal breath sounds. Musculoskeletal: Left shoulder: No tenderness or bony tenderness. Left forearm: Laceration (Skin tear) present. No tenderness or bony tenderness. Cervical back: Normal. Thoracic back: Normal. Lumbar back: Normal. Right knee: Bony tenderness present. Normal range of motion. Tenderness present over the medial joint line. Normal pulse. Comments: Tenderness over right medial joint line. No obvious swelling or deformity. Normal flexion extension. Nontender hip or ankle. Skin tear noted to right knee. Please see skin. Nontender cervical, thoracic, lumbar spine. Able to ambulate. Skin tear noted to left forearm. No tenderness or bony tenderness. Normal ROM wrist, elbow, hand. No swelling or deformities. Nontender shoulder. Normal ROM left shoulder. Contusion noted to left shoulder. Nontender. Skin: General: Skin is warm and dry. Findings: Wound present. Comments: Small circular skin tear noted to right knee. No active bleeding. Normal ROM of knee. No drainage. Approximately 3.5 cm x 3.5 cm skin tear noted to left forearm. Small amount of bruising present. Nontender forearm. No active bleeding. No foreign body seen. Neurological: Mental Status: She is alert. Assessment and Plan ASSESSMENT/PLAN: 1. Acute pain of right knee - ICD9: 719.46, ICD10: M25.561 (primary diagnosis) - XR KNEE GENERAL 4V AP BOTH/PA BOTH/LAT/MERC RIGHT _small right knee joint effusion without acute osseous abnormality. -Recommend rest, ice, elevation. 2. Skin tear of left forearm without complication, initial encounter - ICD9: 881.00, ICD10: S51.812A -Wounds cleansed with Hibiclens and sterile water. -Steri-Strips applied. Wound well-approximated. -Advised to watch for signs of infection. -Follow-up as needed. -Tetanus updated 3. Skin tear of right lower leg without complication, initial encounter - ICD9: 891.0, ICD10: S81.811A -Wounds cleansed with Hibiclens and sterile water. -Steri-Strips applied. Wound well-approximated. -Advised to watch for signs of infection. -Follow-up as needed. -Patient does have contusion to left shoulder. Declines imaging. Nontender. Normal ROM. Follow-up if symptoms persist or worsen Diagnosis and treatment plan were discussed and questions were answered to the patient's satisfaction. Pt acknowledged understanding of concepts and follow up plan. Specific signs and symptoms that would indicate the need for higher level of care were discussed in detail warranting prompt ER evaluation. SILAS Maldonado documented in this encounter [facility] 04-28-2024 History of Present illness Narrative Radiology Service Progress Note PATIENT NAME: Marshall Wu DATE OF SERVICE: April 28, 2024 TIME: 4:17 PM PATIENT IDENTITY VERIFICATION COMPLETED USING TWO (2) IDENTIFIERS: Name and Date of confirmed by patient verbally. FALL SCREENING: Has the patient had 2 falls in the last year or 1 fall with injury or currently using an Ambulatory Assistive Device (Walker, Cane, Wheelchair, Crutches, etc.)? No PATIENT GENDER DATA: Female. status: : No status: NO. PATIENT RELEVANT IMPLANT DATA REVIEWED: Yes PATIENT PRESENTS WITH AN IMPLANTABLE OR ATTACHED STRANDING MACHINE OPERATOR HELPER: No RADIOLOGY DEPARTMENT: General X-ray: Exam(s) Completed: Lower Extremity X-Ray(s): Knee, AP / Lat / Tunne / Merchant Right PERIPHERAL IV DATA: Not applicable SIGNED BY: RT Moira(R) April 28, 2024 4:17 PM documented in this encounter [facility] 04-28-2024 Note HNO ID: [id number] Author: LUCERO CHAHAL RT(Jeronimo) Service: ? Author Type: Medical File Clerk Type: Progress Notes Filed: 04/28/2024 16:33 Note Text: Radiology Service Progress Note PATIENT NAME: Marshall Wu DATE OF SERVICE: April 28, 2024 TIME: 4:17 PM PATIENT IDENTITY VERIFICATION COMPLETED USING TWO (2) IDENTIFIERS: Name and Date of confirmed by patient verbally. FALL SCREENING: Has the patient had 2 falls in the last year or 1 fall with injury or currently using an Ambulatory Assistive Device (Walker, Cane, Wheelchair, Crutches, etc.)? No PATIENT GENDER DATA: Female. status: : No status: NO. PATIENT RELEVANT IMPLANT DATA REVIEWED: Yes PATIENT PRESENTS WITH AN IMPLANTABLE OR ATTACHED STRANDING MACHINE OPERATOR HELPER: No RADIOLOGY DEPARTMENT: General X-ray: Exam(s) Completed: Lower Extremity X-Ray(s): Knee, AP / Lat / Tunne / Merchant Right PERIPHERAL IV DATA: Not applicable SIGNED BY: RT Moira(R) April 28, 2024 4:17 PM [facility] 04-20-2024 Telephone encounter Note Duplicate -- filled by sleep med [facility] Work Phone: 04-20-2024 Miscellaneous Notes Duplicate -- filled by sleep med Prescription Refill Information The patient has been identified by name and date of : Yes Caregiver verified no other encounters exist for this prescription request: Yes Caregiver confirmed with patient/requestor that no other refills are due, in the near future, with this provider at this time: No The last office visit in the department: 04/07/24 Does the patient have a future office visit with this provider/department: No Requested Prescriptions Pending Prescriptions Disp Refills rOPINIRole (REQUIP) 1 mg tablet 90 tablet 1 Sig: Take 1 tablet by mouth daily at bedtime. Calista Quintana MA April 20, 2024 2:49 PM documented in this encounter [facility] 04-20-2024 Telephone encounter Note Done [facility] 04-20-2024 Miscellaneous Notes Done Rx sent Ke Grant APRN.CNP documented in this encounter [facility] 04-20-2024 Telephone encounter Note Rx sent Ke Grant APRN.INDRA [facility] 04-20-2024 Telephone encounter Note Prescription Refill Information The patient has been identified by name and date of : Yes Caregiver verified no other encounters exist for this prescription request: Yes Caregiver confirmed with patient/requestor that no other refills are due, in the near future, with this provider at this time: No The last office visit in the department: 04/07/24 Does the patient have a future office visit with this provider/department: No Requested Prescriptions Pending Prescriptions Disp Refills rOPINIRole (REQUIP) 1 mg tablet 90 tablet 1 Sig: Take 1 tablet by mouth daily at bedtime. Calista Quintana MA April 20, 2024 2:49 PM [facility] 04-20-2024 Note HNO ID: [id number] Author: SERGEI LAUREN RN Service: ? Author Type: Registered Nurse Type: Progress Notes Filed: 04/20/2024 14:39 Note Text: [facility] Telephonic Outreach Provider Action/FYI Contacted for: Routine Telephonic Outreach Contact made with patient: Yes Patient identified by name and date of . Discussed care with patient Are you experiencing any new or worsening symptoms you need to talk about today? No Disease Specific Do you check your blood pressure at home? No Do you have new or worsening shortness of breath with activity? No Based on glass block bender, the following disposition is advised: No symptoms or symptoms present, not severe. Routed to: No Action Needed LEE Education Provided this Outreach: No Doing ok now States she pulled her hamstring a few weeks ago Healed now, walking without issues B/P medication changes have B/P at goal so no longer checking it No additional concerns Sergei Lauren RN April 20, 2024 2:36 PM [facility] 04-20-2024 History of Present illness Narrative [facility] Telephonic Outreach Provider Action/FYI Contacted for: Routine Telephonic Outreach Contact made with patient: Yes Patient identified by name and date of . Discussed care with patient Are you experiencing any new or worsening symptoms you need to talk about today? No Disease Specific Do you check your blood pressure at home? No Do you have new or worsening shortness of breath with activity? No Based on glass block bender, the following disposition is advised: No symptoms or symptoms present, not severe. Routed to: No Action Needed LEE Education Provided this Outreach: No Doing ok now States she pulled her hamstring a few weeks ago Healed now, walking without issues B/P medication changes have B/P at goal so no longer checking it No additional concerns Sergei Lauren RN April 20, 2024 2:36 PM documented in this encounter [facility] 04-20-2024 Note Patient Outreach ([facility]) ---- MARSHALL WU ([id number]) 1935 F Date Time Provider Department 04/20/24 SERGEI LAUREN [facility] During your visit today, we recorded the following information about you: Sergei Lauren RN 04/20/2024 2:39 PM Signed [facility] Telephonic Outreach Provider Action/FYI Contacted for: Routine Telephonic Outreach Contact made with patient: Yes Patient identified by name and date of . Discussed care with patient Are you experiencing any new or worsening symptoms you need to talk about today? No Disease Specific Do you check your blood pressure at home? No Do you have new or worsening shortness of breath with activity? No Based on glass block bender, the following disposition is advised: No symptoms or symptoms present, not severe. Routed to: No Action Needed LEE Education Provided this Outreach: No Doing ok now States she pulled her hamstring a few weeks ago Healed now, walking without issues B/P medication changes have B/P at goal so no longer checking it No additional concerns Sergei Lauren RN April 20, 2024 2:36 PM Allergies As of Date: 04/20/2024 Noted Allergy Reaction CIPROFLOXACIN 03/14/2019 14 - Other: See Comments Comments: Ankle and achilles pain SEASONAL ALLERGIES 12/19/2016 5 - Intolerance Date Reviewed: 04/07/2024 Reviewed by: Jamie Bustamante LPN - Fully Assessed Reason for Visit: community monitoring outreach [Other] Cmt: CDM-Telephonic outreach Prescriptions as of 04/20/2024 - polyethylene glycol 3350 (MIRALAX) 17 gram/dose powder TAKE DAILY NEEDED FOR CONSTIPATION - lisinopril (ZESTRIL) 30 mg tablet Take 1 tablet by mouth once daily. - budesonide-formoterol (SYMBICORT) 160-4.5 mcg/actuation inhaler Inhale 2 Puffs as instructed two times a day. - hydroCHLOROthiazide 12.5 mg capsule Take 1 capsule by mouth once daily. - rOPINIRole (REQUIP) 1 mg tablet Take 1 tablet by mouth daily at bedtime. - solifenacin 10 mg tablet Take 0.5 tablets by mouth once daily. - atorvastatin (LIPITOR) 20 mg tablet TAKE 1 TABLET DAILY AT BEDTIME FOR CHOLESTEROL - melatonin 10 mg cap Take 10 mg by mouth. - ESOMEPRAZOLE MAGNESIUM (NEXIUM 24HR ORAL) Take by mouth. 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 Made pt aware Provider is out of office. Augusta Mcgrath MA [facility] 04-15-2024 Miscellaneous Notes Notified Provider in previous message from pt. Made pt aware Provider is out of office. Augusta Mcgrath MA documented in this encounter [facility] 04-14-2024 History of Present illness Narrative Radiology Service Progress Note PATIENT NAME: Marshall Wu DATE OF SERVICE: April 14, 2024 TIME: 10:20 AM PATIENT IDENTITY VERIFICATION COMPLETED USING TWO (2) IDENTIFIERS: Name and Date of confirmed by patient verbally. FALL SCREENING: Has the patient had 2 falls in the last year or 1 fall with injury or currently using an Ambulatory Assistive Device (Walker, Cane, Wheelchair, Crutches, etc.)? No PATIENT GENDER DATA: Female. status: : No status: NO. PATIENT RELEVANT IMPLANT DATA REVIEWED: Not Applicable PATIENT PRESENTS WITH AN IMPLANTABLE OR ATTACHED STRANDING MACHINE OPERATOR HELPER: No RADIOLOGY DEPARTMENT: Mammography PERIPHERAL IV DATA: Not applicable SIGNED BY: Adonay Buenrostroo Eugene April 14, 2024 10:20 AM documented in this encounter [facility] 04-14-2024 Note HNO ID: [id number] Author: MAURIZIO OHARA Mammo Tech Service: ? Author Type: Medical File Clerk Type: Progress Notes Filed: 04/14/2024 10:55 Note Text: Radiology Service Progress Note PATIENT NAME: Marshall Wu DATE OF SERVICE: April 14, 2024 TIME: 10:20 AM PATIENT IDENTITY VERIFICATION COMPLETED USING TWO (2) IDENTIFIERS: Name and Date of confirmed by patient verbally. FALL SCREENING: Has the patient had 2 falls in the last year or 1 fall with injury or currently using an Ambulatory Assistive Device (Walker, Cane, Wheelchair, Crutches, etc.)? No PATIENT GENDER DATA: Female. status: : No status: NO. PATIENT RELEVANT IMPLANT DATA REVIEWED: Not Applicable PATIENT PRESENTS WITH AN IMPLANTABLE OR ATTACHED STRANDING MACHINE OPERATOR HELPER: No RADIOLOGY DEPARTMENT: Mammography PERIPHERAL IV DATA: Not applicable SIGNED BY: Maurizio Ohara Vendly April 14, 2024 10:20 AM [facility] 04-07-2024 Note Addended by: GEMA COLEMAN on: 04/07/2024 04:53 PM Modules accepted: Level of Service [facility] 04-07-2024 Miscellaneous Notes Addended by: GEMA COLEMAN on: 04/07/2024 04:53 PM Modules accepted: Level of Service documented in this encounter [facility] 04-07-2024 Instructions Gema Coleman APRN.CNP - 04/07/2024 10:29 AM EDT Start the prednisone -- take two tablets by mouth daily X 5 days. Do not take additional aleve/ibuprofen when on the prednisone. You can still use tylenol. Ice/moist heat to the area. Topicals (juan stapleton, icy hot, etc). Let us know if no better/worsening. documented in this encounter [facility] 04-07-2024 Note HNO ID: [id number] Author: GEMA COLEMAN APRN.CNP Service: ? Author Type: Nurse Practitioner Type: Progress Notes Filed: 04/07/2024 16:52 Note Text: This is a 89 year old female who presents today with: Patient presents with: Hip Pain: R hip x2 days HISTORY OF PRESENT ILLNESS: Marshall Wu is a 89 year old female. Patient presents with: Hip Pain: R hip x2 days Pt presents today with complaint of right hip pain. Refers on Friday, she went to fall, didn't fall, but did hit something with her right leg and got a bruise. She was able to ambulate and run errands the remainder of the day. On Friday, she got up and could hardly walk on her right hip. She is active and walks and swims. She is currently having to walk with a walker because of the hip pain. Weight bearing worsens the pain. Took an aleve yesterday, which didn't help much. She tried to ambulate with a cane, but didn't feel steady. Currently using a walker. PAST MEDICAL HISTORY: PAST MEDICAL HISTORY Diagnosis Date Aortic sclerosis 2012 Found on echo Arthritis of foot Bilateral heel spurs. 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 PAST SURGICAL HISTORY Procedure Laterality Date ARTHROPLASTY GLENOHUMRL JT HEMIARTHROPLASTY Left 03/2022 Arthroplasty, shoulder BREAST LUMPECTOMY HX Right 09/13/2021 U/S guided open right breast lumpectomy COLONOSCOPY FLX DX W/COLLJ SPEC WHEN PFRMD 03/26/2007 Colonoscopy DILATION AND CURETTAGE DXAND/THER NONOBSTETRIC Dilation AND curettage LAPAROSCOPY SURG CHOLECYSTECTOMY 1979 Cholecystectomy, lap SKIN BIOPSY HX ALLERGIES Ciprofloxacin and Seasonal Allergies MEDICATIONS Current Outpatient Medications Medication Sig polyethylene glycol 3350 (MIRALAX) 17 gram/dose powder TAKE DAILY NEEDED FOR CONSTIPATION lisinopril (ZESTRIL) 30 mg tablet Take 1 tablet by mouth once daily. budesonide-formoterol (SYMBICORT) 160-4.5 mcg/actuation inhaler Inhale 2 Puffs as instructed two times a day. hydroCHLOROthiazide 12.5 mg capsule Take 1 capsule by mouth once daily. rOPINIRole (REQUIP) 1 mg tablet Take 1 tablet by mouth daily at bedtime. solifenacin 10 mg tablet Take 0.5 tablets by mouth once daily. atorvastatin (LIPITOR) 20 mg tablet TAKE 1 TABLET DAILY AT BEDTIME FOR CHOLESTEROL melatonin 10 mg cap Take 10 mg by mouth. ESOMEPRAZOLE MAGNESIUM (NEXIUM 24HR ORAL) Take by mouth. No current facility-administered medications for this visit. FAMILY HISTORY Problem Relation Age of Onset Alzheimer's Disease Mother Arthritis Father Stroke Father Breast Cancer Maternal Aunt other (lung cancer) Maternal Aunt Prostate Cancer Son Stroke Other Fatal. Brother in law. Social History Tobacco Use Smoking status: Former Current packs/day: 0.00 Average packs/day: 1.3 packs/day for 32.0 years (41.7 ttl pk-yrs) Types: Cigarettes Start date: 03/10/1955 Quit date: 07/14/1986 Years since quittin.7 Smokeless tobacco: Never Tobacco comments: Parents did not smoke in childhood home. Spouse non smoker. Vaping Use Vaping status: Never Used Substance Use Topics Alcohol use: Yes Comment: Occasional. Drug use: No EXAM: BP 130/72 Pulse 95 Resp 16 SpO2 95% PHYSICAL EXAM: General Appearance: Well appearing, alert, in no acute distress, well-hydrated, well nourished.. Skin: Skin color, texture, turgor normal, no suspicious rashes or lesions. Head: Normocephalic, no masses, lesions, tenderness or abnormalities. Eyes: Anicteric sclera. Extraocular movements are intact. . Extremities: No deformities, edema, skin discoloration, clubbing or cyanosis. Good capillary refill. ROM intact. Neurologic: Gait normal with walker. ASSESSMENT/PLAN: 1. Pain of right hip - ICD9: 719.45, ICD10: M25.551 She has tried nsaid without effect. Will start prednisone burst. Ice/moist heat. Topicals. Declined xray today, but if no better/worsening, will let us know. - PREDNISONE 20 MG TABLET Discussed treatment plan and patient voices understanding. Patient's questions answered appropriately. Medications and potential side effects were discussed and patient voices understanding. Return to the office as scheduled or as needed for worsening/no improvement. Gema Coleman APRN.[facility] 04-07-2024 History of Present illness Narrative This is a 89 year old female who presents today with: Patient presents with: Hip Pain: R hip x2 days HISTORY OF PRESENT ILLNESS: Marshall Wu is a 89 year old female. Patient presents with: Hip Pain: R hip x2 days Pt presents today with complaint of right hip pain. Refers on Friday, she went to fall, didn't fall, but did hit something with her right leg and got a bruise. She was able to ambulate and run errands the remainder of the day. On Friday, she got up and could hardly walk on her right hip. She is active and walks and swims. She is currently having to walk with a walker because of the hip pain. Weight bearing worsens the pain. Took an aleve yesterday, which didn't help much. She tried to ambulate with a cane, but didn't feel steady. Currently using a walker. PAST MEDICAL HISTORY: PAST MEDICAL HISTORY Diagnosis Date Aortic sclerosis 2012 Found on echo Arthritis of foot Bilateral heel spurs. 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 PAST SURGICAL HISTORY Procedure Laterality Date ARTHROPLASTY GLENOHUMRL JT HEMIARTHROPLASTY Left 03/2022 Arthroplasty, shoulder BREAST LUMPECTOMY HX Right 09/13/2021 U/S guided open right breast lumpectomy COLONOSCOPY FLX DX W/COLLJ SPEC WHEN PFRMD 03/26/2007 Colonoscopy DILATION & CURETTAGE DX&/THER NONOBSTETRIC Dilation & curettage LAPAROSCOPY SURG CHOLECYSTECTOMY 1979 Cholecystectomy, lap SKIN BIOPSY HX ALLERGIES Ciprofloxacin and Seasonal Allergies MEDICATIONS Current Outpatient Medications Medication Sig polyethylene glycol 3350 (MIRALAX) 17 gram/dose powder TAKE DAILY NEEDED FOR CONSTIPATION lisinopril (ZESTRIL) 30 mg tablet Take 1 tablet by mouth once daily. budesonide-formoterol (SYMBICORT) 160-4.5 mcg/actuation inhaler Inhale 2 Puffs as instructed two times a day. hydroCHLOROthiazide 12.5 mg capsule Take 1 capsule by mouth once daily. rOPINIRole (REQUIP) 1 mg tablet Take 1 tablet by mouth daily at bedtime. solifenacin 10 mg tablet Take 0.5 tablets by mouth once daily. atorvastatin (LIPITOR) 20 mg tablet TAKE 1 TABLET DAILY AT BEDTIME FOR CHOLESTEROL melatonin 10 mg cap Take 10 mg by mouth. ESOMEPRAZOLE MAGNESIUM (NEXIUM 24HR ORAL) Take by mouth. No current facility-administered medications for this visit. FAMILY HISTORY Problem Relation Age of Onset Alzheimer's Disease Mother Arthritis Father Stroke Father Breast Cancer Maternal Aunt other (lung cancer) Maternal Aunt Prostate Cancer Son Stroke Other Fatal. Brother in law. Social History Tobacco Use Smoking status: Former Current packs/day: 0.00 Average packs/day: 1.3 packs/day for 32.0 years (41.7 ttl pk-yrs) Types: Cigarettes Start date: 03/10/1955 Quit date: 07/14/1986 Years since quittin.7 Smokeless tobacco: Never Tobacco comments: Parents did not smoke in childhood home. Spouse non smoker. Vaping Use Vaping status: Never Used Substance Use Topics Alcohol use: Yes Comment: Occasional. Drug use: No EXAM: BP 130/72 Pulse 95 Resp 16 SpO2 95% PHYSICAL EXAM: General Appearance: Well appearing, alert, in no acute distress, well-hydrated, well nourished.. Skin: Skin color, texture, turgor normal, no suspicious rashes or lesions. Head: Normocephalic, no masses, lesions, tenderness or abnormalities. Eyes: Anicteric sclera. Extraocular movements are intact. . Extremities: No deformities, edema, skin discoloration, clubbing or cyanosis. Good capillary refill. ROM intact. Neurologic: Gait normal with walker. ASSESSMENT/PLAN: 1. Pain of right hip - ICD9: 719.45, ICD10: M25.551 She has tried nsaid without effect. Will start prednisone burst. Ice/moist heat. Topicals. Declined xray today, but if no better/worsening, will let us know. - PREDNISONE 20 MG TABLET Discussed treatment plan and patient voices understanding. Patient's questions answered appropriately. Medications and potential side effects were discussed and patient voices understanding. Return to the office as scheduled or as needed for worsening/no improvement. Gema Coleman APRN.STUDY LEAD documented in this encounter [facility] 04-06-2024 Telephone encounter Note Pt scheduled with Gema tomorrow and notified [facility] 04-06-2024 Miscellaneous Notes Pt scheduled with Gema tomorrow and notified documented in this encounter [facility] 03-29-2024 History of Present illness Narrative Images from the original note were not included. [facility] Follow up/ Established patient visit Date of last visit : 12/22/23 The following Impression/Plan was copied and pasted from the patient's last [facility] visit on 12/22/23: ASSESSMENT/PLAN: 1. Neuropathy - ICD9: 355.9, ICD10: G62.9 (primary diagnosis) Patient with balance issues that are no obvious on exam. No falls. Prior L spine workup not concerning, and while degenerative disc disease noted on XR, no weakness on exam or pain/discomfort typical of spine etiology. Besides stocking glove sensory deficits, non focal neuro exam. Patient very active. 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 Extensive lab workup already performed by PCP, but will add WSR and [place] with reflex to complete neuropathy labs. No known exposures to heavy metals or other toxins that might induce neuropathy. No history of chemotherapy. No family history of neuropathy. Mild elevated glucose which might be contributing to disorder. Encouraged exercise. Pt does not feel she needs PT. 2. Restless leg - ICD9: 333.94, ICD10: G25.81 As above, noted urge to move, worse towards the night time and improved with actual movement. No prior Fe or Ferritin levels, and will add to next set of patient's labs - distant history of Fe deficiency. For discomfort or urge to move, will start patient on gabapentin 100mg at lunch and 100mg at dinner to see if improves discomfort and urge to move prior to bedtime. Will continue Requip for now. Will likely need titration of gabapentin dosing and if successful in controlling symptoms, then will try to transition from Requip to gabapentin. Likewise, gabapentin may help with nay discomfort associated with neuropathy. SE and ADRs d/w pt. Pt agrees with plan as above. Bang Plummer MD Here for follow up for RLS. Didn't get relief with gabapentin 100 mg at lunch and dinner so stopped it. In fact she felt gabapentin made her RLS worse. Had Covid a couple of weeks ago, so less exercise in general which has made her RLS nonexistent during this time. She is usually quite active, especaially with golf. But she notes she is more unsteady, this has been gradual, worse on uneven ground, wears good sneakers. Has some numbness intermittently in her big toes. No RLS in past week. She will play golf tomorrow so we'll see if she has RLS tomorrow night. Frequency of RLS varied before Covid, even with being on iron. Labs showed low ferritin so Dr Plummer recommended PO iron bid. A bit of constipation but mostly tolerable. Depends on her diet. Continues to take ropinirole 1 mg at bedtime. Latest Reference Range & Units 01/10/24 09:21 Ferritin 14.7 - 205.1 ng/mL 41.3 Iron 41 - 186 ug/dL 75 TIBC 232 - 386 ug/dL 279 Transferrin Saturation 15.0 - 57.0 % 26.9 Latest Reference Range & Units 01/10/24 09:21 Non HDL Cholesterol <130 mg/dL 103 PDMP website checked and validated. All prescriptions have been APPROPRIATELY filled. No suspicious activity was identified. 03/29/2024 by Ke Grant APRN.STUDY LEAD PATIENT-ENTERED QUESTIONNAIRE SLEEP SCORES 03/26/2024 Sleep Questions Reason for visit: Restless Legs Syndrome On average, hours of sleep in 24 hours: 9 Accidents or near accidents due to drowsy drivin 03/26/2024 [place] Sleepiness Scale Score 7 (No clinically significant daytime sleepiness) 03/26/2024 PROMIS CAT Sleep Disturbance PROMIS Sleep Disturbance T-Score 52 (within normal limits) PROMIS Sleep Disturbance Percentile 42 03/26/2024 Restless Leg Syndrome Score 11 (Moderate symptoms) 02/26/2024 03/26/2024 PHQ-9 Score 2 2 10/20/2023 01/12/2024 01/30/2024 PROMIS Global Health - (T-Scores - the mean of general population = 50. Five points is a clinically meaningful difference.) Physical T-Score 47.7 47.7 47.7 47.7 44.9 Mental T-Score 48.3 56 56 56 56 ALLERGIES Allergen Reactions Ciprofloxacin Other: See Comments Ankle and achilles pain Seasonal Allergies Intolerance CURRENT MEDICATIONS: polyethylene glycol 3350 (MIRALAX) 17 gram/dose powder TAKE DAILY NEEDED FOR CONSTIPATION lisinopril (ZESTRIL) 30 mg tablet Take 1 tablet by mouth once daily. budesonide-formoterol (SYMBICORT) 160-4.5 mcg/actuation inhaler Inhale 2 Puffs as instructed two times a day. hydroCHLOROthiazide 12.5 mg capsule Take 1 capsule by mouth once daily. rOPINIRole (REQUIP) 1 mg tablet Take 1 tablet by mouth daily at bedtime. solifenacin 10 mg tablet Take 0.5 tablets by mouth once daily. atorvastatin (LIPITOR) 20 mg tablet TAKE 1 TABLET DAILY AT BEDTIME FOR CHOLESTEROL melatonin 10 mg cap Take 10 mg by mouth. ESOMEPRAZOLE MAGNESIUM (NEXIUM 24HR ORAL) Take by mouth. PHYSICAL EXAMINATION: Vital Signs: BP 133/77 Pulse 83 Resp 16 Wt 67.6 kg (149 lb) SpO2 96% BMI 26.39 kg/m PHYSICAL EXAM: General appearance: pleasant, NAD Mental status: alert and oriented, able to provide own history Constitutional: WNL Skin: No visible rashes on exposed skin Neuro: No focal deficits observed, no tremors IMPRESSION/PLAN: Rls (restless legs syndrome) (primary encounter diagnosis) Neuropathy Abnormal finding of blood chemistry, unspecified Marshall Sammi Wu is an 89 year old female with RLS, neuropathy for which she will follow up with Dr Plummer, [facility] labs which we will update today. Her RLS is worse with increased exercise during the day, sxs occur right at bedtime, ok if she can fall asleep quickly. RLS was worse with gabapentin. She continues to take ropinirole 1 mg at HS. Consider pregabalin. Or even magnesium next might be a better option for her. We discussed augmentation from ropinirole. Could switch to Neupro patch. Discussed with Dr Plummer. Will contact her with lab results. She has been on BID PO iron for over 2 mos now, no significant improvement in her RLS, we'll see what lab results tell us. Follow up Dr Plummer. Ke Grant APRN.INDRA documented in this encounter [facility] 03-29-2024 Note HNO ID: [id number] Author: KE GRANT APRN.CNP Service: ? Author Type: Nurse Practitioner Type: Progress Notes Filed: 03/29/2024 13:33 Note Text: [facility] Follow up/ Established patient visit Date of last visit : 12/22/23 The following Impression/Plan was copied and pasted from the patient's last [facility] visit on 12/22/23: ASSESSMENT/PLAN: 1. Neuropathy - ICD9: 355.9, ICD10: G62.9 (primary diagnosis) Patient with balance issues that are no obvious on exam. No falls. Prior L spine workup not concerning, and while degenerative disc disease noted on XR, no weakness on exam or pain/discomfort typical of spine etiology. Besides stocking glove sensory deficits, non focal neuro exam. Patient very active. 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 Extensive lab workup already performed by PCP, but will add WSR and [place] with reflex to complete neuropathy labs. No known exposures to heavy metals or other toxins that might induce neuropathy. No history of chemotherapy. No family history of neuropathy. Mild elevated glucose which might be contributing to disorder. Encouraged exercise. Pt does not feel she needs PT. 2. Restless leg - ICD9: 333.94, ICD10: G25.81 As above, noted urge to move, worse towards the night time and improved with actual movement. No prior Fe or Ferritin levels, and will add to next set of patient's labs - distant history of Fe deficiency. For discomfort or urge to move, will start patient on gabapentin 100mg at lunch and 100mg at dinner to see if improves discomfort and urge to move prior to bedtime. Will continue Requip for now. Will likely need titration of gabapentin dosing and if successful in controlling symptoms, then will try to transition from Requip to gabapentin. Likewise, gabapentin may help with nay discomfort associated with neuropathy. SE and ADRs d/w pt. Pt agrees with plan as above. Bang Plummer MD Here for follow up for RLS. Didn't get relief with gabapentin 100 mg at lunch and dinner so stopped it. In fact she felt gabapentin made her RLS worse. Had Covid a couple of weeks ago, so less exercise in general which has made her RLS nonexistent during this time. She is usually quite active, especaially with golf. But she notes she is more unsteady, this has been gradual, worse on uneven ground, wears good sneakers. Has some numbness intermittently in her big toes. No RLS in past week. She will play golf tomorrow so we'll see if she has RLS tomorrow night. Frequency of RLS varied before Covid, even with being on iron. Labs showed low ferritin so Dr Plummer recommended PO iron bid. A bit of constipation but mostly tolerable. Depends on her diet. Continues to take ropinirole 1 mg at bedtime. Latest Reference Range AND Units 01/10/24 09:21 Ferritin 14.7 - 205.1 ng/mL 41.3 Iron 41 - 186 ug/dL 75 TIBC 232 - 386 ug/dL 279 Transferrin Saturation 15.0 - 57.0 % 26.9 Latest Reference Range AND Units 01/10/24 09:21 Non HDL Cholesterol <130 mg/dL 103 PDMP website checked and validated. All prescriptions have been APPROPRIATELY filled. No suspicious activity was identified. 03/29/2024 by Ke Grant APRN.STUDY LEAD PATIENT-ENTERED QUESTIONNAIRE SLEEP SCORES 03/26/2024 Sleep Questions Reason for visit: Restless Legs Syndrome On average, hours of sleep in 24 hours: 9 Accidents or near accidents due to drowsy drivin 03/26/2024 [place] Sleepiness Scale Score 7 (No clinically significant daytime sleepiness) 03/26/2024 PROMIS CAT Sleep Disturbance PROMIS Sleep Disturbance T-Score 52 (within normal limits) PROMIS Sleep Disturbance Percentile 42 03/26/2024 Restless Leg Syndrome Score 11 (Moderate symptoms) 02/26/2024 03/26/2024 PHQ-9 Score 2 2 10/20/2023 01/12/2024 01/30/2024 PROMIS Global Health - (T-Scores - the mean of general population = 50. Five points is a clinically meaningful difference.) Physical T-Score 47.7 47.7 47.7 47.7 44.9 Mental T-Score 48.3 56 56 56 56 ALLERGIES Allergen Reactions Ciprofloxacin Other: See Comments Ankle and achilles pain Seasonal Allergies Intolerance CURRENT MEDICATIONS: polyethylene glycol 3350 (MIRALAX) 17 gram/dose powder TAKE DAILY NEEDED FOR CONSTIPATION lisinopril (ZESTRIL) 30 mg tablet Take 1 tablet by mouth once daily. budesonide-formoterol (SYMBICORT) 160-4.5 mcg/actuation inhaler Inhale 2 Puffs as instructed two times a day. hydroCHLOROthiazide 12.5 mg capsule Take 1 capsule by mouth once daily. rOPINIRole (REQUIP) 1 mg tablet Take 1 tablet by mouth daily at bedtime. solifenacin 10 mg tablet Take 0.5 tablets by mouth once daily. atorvastatin (LIPITOR) 20 mg tablet TAKE 1 TABLET DAILY AT BEDTIME FOR CHOLESTEROL melatonin 10 mg cap Take 10 mg by mouth. ESOMEPRA (more content not included)... [facility] 03-19-2024 Note HNO ID: [id number] Author: SERGEI LAUREN RN Service: ? Author Type: Registered Nurse Type: Progress Notes Filed: 03/19/2024 11:42 Note Text: [facility] Telephonic Outreach Provider Action/FYI Contacted for: Routine Telephonic Outreach Contact made with patient: Yes Patient identified by name and date of . Discussed care with patient Are you experiencing any new or worsening symptoms you need to talk about today? No Based on glass block bender, the following disposition is advised: No symptoms or symptoms present, not severe. Routed to: No Action Needed LEE Education Provided this Outreach: No Patient tested positive for Covid Feeling much better Continues to have some lingering fatigue Went outside for walk this am. No additional concerns Sergei Lauren RN March 19, 2024 11:40 AM [facility] 03-19-2024 History of Present illness Narrative [facility] Telephonic Outreach Provider Action/FYI Contacted for: Routine Telephonic Outreach Contact made with patient: Yes Patient identified by name and date of . Discussed care with patient Are you experiencing any new or worsening symptoms you need to talk about today? No Based on glass block bender, the following disposition is advised: No symptoms or symptoms present, not severe. Routed to: No Action Needed LEE Education Provided this Outreach: No Patient tested positive for Covid Feeling much better Continues to have some lingering fatigue Went outside for walk this am. No additional concerns Sergei Lauren RN March 19, 2024 11:40 AM documented in this encounter [facility] 03-19-2024 Note Patient Outreach (AM [facility]) ---- MARSHALL WU ([id number]) 1935 F Date Time Provider Department 03/19/24 SERGEI LAUREN [facility] During your visit today, we recorded the following information about you: Sergei Lauren RN 03/19/2024 11:42 AM Signed [facility] Telephonic Outreach Provider Action/FYI Contacted for: Routine Telephonic Outreach Contact made with patient: Yes Patient identified by name and date of . Discussed care with patient Are you experiencing any new or worsening symptoms you need to talk about today? No Based on glass block bender, the following disposition is advised: No symptoms or symptoms present, not severe. Routed to: No Action Needed LEE Education Provided this Outreach: No Patient tested positive for Covid Feeling much better Continues to have some lingering fatigue Went outside for walk this am. No additional concerns Sergei Lauren RN March 19, 2024 11:40 AM Allergies As of Date: 03/19/2024 Noted Allergy Reaction CIPROFLOXACIN 03/14/2019 14 - Other: See Comments Comments: Ankle and achilles pain SEASONAL ALLERGIES 12/19/2016 5 - Intolerance Date Reviewed: 03/10/2024 Reviewed by: Suhas Rivera APRN.STUDY LEAD - Fully Assessed Reason for Visit: community monitoring outreach [Other] Cmt: CDM-Telephonic outreach Prescriptions as of 03/19/2024 - polyethylene glycol 3350 (MIRALAX) 17 gram/dose powder TAKE DAILY NEEDED FOR CONSTIPATION - lisinopril (ZESTRIL) 30 mg tablet Take 1 tablet by mouth once daily. - budesonide-formoterol (SYMBICORT) 160-4.5 mcg/actuation inhaler Inhale 2 Puffs as instructed two times a day. - hydroCHLOROthiazide 12.5 mg capsule Take 1 capsule by mouth once daily. - gabapentin (NEURONTIN) 100 mg capsule Take 1 capsule by mouth two times a day for 90 days. (dose at lunch time and dose at dinner time) - rOPINIRole (REQUIP) 1 mg tablet Take 1 tablet by mouth daily at bedtime. - solifenacin 10 mg tablet Take 0.5 tablets by mouth once daily. - atorvastatin (LIPITOR) 20 mg tablet TAKE 1 TABLET DAILY AT BEDTIME FOR CHOLESTEROL - melatonin 10 mg cap Take 10 mg by mouth. - ESOMEPRAZOLE MAGNESIUM (NEXIUM 24HR ORAL) Take by mouth. 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 Author Type: Registered Nurse Type: Progress Notes Filed: 03/16/2024 16:23 Note Text: [facility] Telephonic Outreach Provider Action/FYI Contacted for: Routine Telephonic Outreach Contact made with patient: Yes Patient identified by name and date of . Discussed care with patient Are you experiencing any new or worsening symptoms you need to talk about today? No Based on glass block bender, the following disposition is advised: No symptoms or symptoms present, not severe. Routed to: No Action Needed LEE Education Provided this Outreach: No Tested positive for Covid Taking Paxlovid Symptoms are improving Overall feeling better Still having some fatigue, not taste Denies fever. Fluids/rest encouraged. Will follow up on 03/19 Sergei Lauren RN March 16, 2024 4:21 PM [facility] 03-16-2024 History of Present illness Narrative [facility] Telephonic Outreach Provider Action/FYI Contacted for: Routine Telephonic Outreach Contact made with patient: Yes Patient identified by name and date of . Discussed care with patient Are you experiencing any new or worsening symptoms you need to talk about today? No Based on glass block bender, the following disposition is advised: No symptoms or symptoms present, not severe. Routed to: No Action Needed LEE Education Provided this Outreach: No Tested positive for Covid Taking Paxlovid Symptoms are improving Overall feeling better Still having some fatigue, not taste Denies fever. Fluids/rest encouraged. Will follow up on 03/19 Sergei Lauren RN March 16, 2024 4:21 PM documented in this encounter [facility] 03-16-2024 Note Patient Outreach (AM [facility]) ---- MARSHALL WU ([id number]) 1935 F Date Time Provider Department 03/16/24 SERGEI LAUREN During your visit today, we recorded the following information about you: Sergei Lauren RN 03/16/2024 4:23 PM Signed [facility] Telephonic Outreach Provider Action/FYI Contacted for: Routine Telephonic Outreach Contact made with patient: Yes Patient identified by name and date of . Discussed care with patient Are you experiencing any new or worsening symptoms you need to talk about today? No Based on glass block bender, the following disposition is advised: No symptoms or symptoms present, not severe. Routed to: No Action Needed LEE Education Provided this Outreach: No Tested positive for Covid Taking Paxlovid Symptoms are improving Overall feeling better Still having some fatigue, not taste Denies fever. Fluids/rest encouraged. Will follow up on 03/19 Sergei Lauren RN March 16, 2024 4:21 PM Allergies As of Date: 03/16/2024 Noted Allergy Reaction CIPROFLOXACIN 03/14/2019 14 - Other: See Comments Comments: Ankle and achilles pain SEASONAL ALLERGIES 12/19/2016 5 - Intolerance Date Reviewed: 03/10/2024 Reviewed by: Suhas Rivera APRN.STUDY LEAD - Fully Assessed Reason for Visit: community monitoring outreach [Other] Cmt: CDM-Telephonic outreach Prescriptions as of 03/16/2024 - nirmatrelvir tablet 300 mg (150 mg x 2) and ritonavir tablet 100 mg in a dose pack (PAXLOVID) Administer TWO pink nirmatrelvir 150 mg tablets and ONE white ritonavir 100 mg tablet for a total of three tablets twice daily. - polyethylene glycol 3350 (MIRALAX) 17 gram/dose powder TAKE DAILY NEEDED FOR CONSTIPATION - lisinopril (ZESTRIL) 30 mg tablet Take 1 tablet by mouth once daily. - budesonide-formoterol (SYMBICORT) 160-4.5 mcg/actuation inhaler Inhale 2 Puffs as instructed two times a day. - hydroCHLOROthiazide 12.5 mg capsule Take 1 capsule by mouth once daily. - gabapentin (NEURONTIN) 100 mg capsule Take 1 capsule by mouth two times a day for 90 days. (dose at lunch time and dose at dinner time) - rOPINIRole (REQUIP) 1 mg tablet Take 1 tablet by mouth daily at bedtime. - solifenacin 10 mg tablet Take 0.5 tablets by mouth once daily. - atorvastatin (LIPITOR) 20 mg tablet TAKE 1 TABLET DAILY AT BEDTIME FOR CHOLESTEROL - melatonin 10 mg cap Take 10 mg by mouth. - ESOMEPRAZOLE MAGNESIUM (NEXIUM 24HR ORAL) Take by mouth. Problem List As Of Date 03/16/2024 Noted Resolved Essential hypertension, benign [I10] Restless leg [G25.81] Hyperlipidemia [E78.5] GERD (gastroesophageal reflux disease) [K21.9] Osteopenia [M85.80] Cervicalgia [M54.2] 04/12/2015 Simple chronic bronchitis (HCC) [J41.0] 04/08/2017 Hyperglycemia [R73.9] 03/02/2019 COPD (chronic obstructive pulmonary disease) (H*03/25/2013 Multiple thyroid nodules [E04.2] 02/03/2021 Chronic sore throat [J31.2] 02/11/2021 Breast cyst, right [N60.01] 07/30/2021 Nontraumatic complete tear of left rotator cuff*07/31/2021 Squamous cell carcinoma in situ (SCCIS) of skin*07/31/2021 Acute midline low back pain without sciatica [M*11/06/2022 Encounter Status:Closed by SERGEI LAUREN on 03/16/24 [facility] 03-11-2024 Telephone encounter Note Patient notified of results and medication at pharmacy, and to hold atorvastatin for 8 days, verbalized understanding. Joseluis Zepeda MA [facility] 03-11-2024 Miscellaneous Notes Patient notified of results and medication at pharmacy, and to hold atorvastatin for 8 days, verbalized understanding. Joseluis Zepeda MA Please let patient know she is positive for Covid-19. Paxlovid has been sent to [facility] for her. She needs to hold her atorvastatin for 8 days. documented in this encounter [facility] 03-11-2024 Telephone encounter Note Please let patient know she is positive for Covid-19. Shandra has been sent to [place] [facility] pharmacy for her. She needs to hold her atorvastatin for 8 days. [facility] 03-10-2024 Instructions Suhas Rivera APRN.STUDY LEAD - 03/10/2024 4:47 PM EDT How to Manage Common Symptoms Associated with COVID for Adults Fever- Fever is a temperature over 100.4 F and can occur when the body is fighting an infection. To help treat a fever: Drink plenty of fluids and stay well hydrated. Eat small amounts of easy to digest food. Rest. Your body needs rest to recover, but getting up and moving around the house frequently is a good idea. You should try to continue doing your normal daily activities (bathing, toileting, grooming, cooking), though you will probably feel tired, and need to rest often. Avoid any heavy activity or exercise, as this will increase your body temperature. Dress in light clothing and stay covered in a light sheet. Keep the room temperature cool. Take a slightly warm (not cold or cool) bath, or apply damp washcloths to the forehead and wrists. Cough- Cough is a common symptom associated with COVID and can be bothersome. To help treat a cough: Stay well hydrated. Try warm water or tea with lemon and/or honey to help soothe the cough. Use a humidifier to add moisture to the air. Try a product with menthol, like a cough drop or a rub for your chest such as Vicks, which can help reduce cough. Try cough drops. Avoid smoking and other strong odors or perfumes. Try breathing exercises to keep your lungs open and clear. Take a big deep breath through your nose and hold for 5 seconds before slowly releasing. Repeat frequently, while you are awake. Congestion- Runny nose or nasal congestion can occur with COVID. Treatment can help relieve symptoms: Try OTC nasal saline spray, or nasal saline rinse to relieve mucus congestion. Nasal strips can help keep nasal passages open, to increase airflow. Elevating your head with an extra pillow in bed can help reduce congestion. Using a humidifier can increase moisture in the air, and make breathing easier. Sore Throat- Another common symptom with COVID, can be managed at home by: Stay well hydrated. Gargle with salt water - mix teaspoon salt with 1 cup of warm water and gargle. This helps to loosen mucus in the back of the throat and may reduce discomfort. Try ice chips, popsicles or lozenges to soothe the throat. Nausea/Vomiting/Diarrhea- These are common symptoms, and staying hydrated is most important. If you are nauseous or vomiting, start with small sips of water every 10-15 minutes and increase as tolerated. You can try sucking an ice cube too. If tolerating, you can try pedialyte or Gatorade, or flat sprite or veronica-carlitos. Start slowly and increase as you are able to. Instead of meals, try smaller, more frequent snacks. Try eating bland foods like crackers, toast, rice, and applesauce. Avoid spicy, greasy or fried foods and dairy containing foods. Even if you aren't feeling hungry due to lack of smell or taste, it is important to try to take in some food when you are able. After drinking and eating, rest in an upright position for up to two hours as needed to help decrease nauseous feelings. Try closing your eyes, avoid moving and watching TV. Avoid strong odors that can make you feel more nauseated. When to seek emergency medical attention Look for emergency warning signs for COVID-19. If having any of these symptoms, seek emergency medical care immediately: Trouble breathing Persistent pain or pressure in the chest New confusion Inability to wake or stay awake Bluish lips or face *This list is not all possible symptoms. Please call your medical provider for any other symptoms that are severe or concerning to you. documented in this encounter [facility] 03-10-2024 Note HNO ID: [id number] Author: SUHAS RIVERA APRN.INDRA Service: ? Author Type: Nurse Practitioner Type: Progress Notes Filed: 03/10/2024 16:58 Note Text: Subjective HPI Nontoxic-appearing female presents urgent care chief complaint COVID-19 concerns. Duration of symptom 1 day. Associated symptoms cough headache nasal drainage body aches chills fatigue. Presents today for evaluation. Was exposed to individual who tested positive for COVID-19. No recent OTC medication use. Has been vaccinated against COVID-19. Denies history of COVID-19 in the past. Denies any productive cough chest pain shortness of breath pleuritic pain hemoptysis nausea vomiting abdominal pain change in bowel or bladder habits. Past medical history prescription medications allergies reviewed. .Patient presents with: Cough: VALDIVIA, drainage x 1 day PAST MEDICAL HISTORY 2012: Aortic sclerosis Comment: Found on echo No date: Arthritis of foot Comment: Bilateral heel spurs. 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 PAST SURGICAL HISTORY 03/2022: ARTHROPLASTY GLENOHUMRL JT HEMIARTHROPLASTY; Left Comment: Arthroplasty, shoulder 09/13/2021: BREAST LUMPECTOMY HX; Right Comment: U/S guided open right breast lumpectomy 03/26/2007: COLONOSCOPY FLX DX W/COLLJ SPEC WHEN PFRMD Comment: Colonoscopy No date: DILATION AND CURETTAGE DXAND/THER NONOBSTETRIC Comment: Dilation AND curettage 1979: LAPAROSCOPY SURG CHOLECYSTECTOMY Comment: Cholecystectomy, lap No date: SKIN BIOPSY HX ALLERGIES Ciprofloxacin and Seasonal Allergies MEDICATIONS polyethylene glycol 3350 (MIRALAX) 17 gram/dose powder TAKE DAILY NEEDED FOR CONSTIPATION lisinopril (ZESTRIL) 30 mg tablet Take 1 tablet by mouth once daily. budesonide-formoterol (SYMBICORT) 160-4.5 mcg/actuation inhaler Inhale 2 Puffs as instructed two times a day. hydroCHLOROthiazide 12.5 mg capsule Take 1 capsule by mouth once daily. gabapentin (NEURONTIN) 100 mg capsule Take 1 capsule by mouth two times a day for 90 days. (dose at lunch time and dose at dinner time) rOPINIRole (REQUIP) 1 mg tablet Take 1 tablet by mouth daily at bedtime. solifenacin 10 mg tablet Take 0.5 tablets by mouth once daily. atorvastatin (LIPITOR) 20 mg tablet TAKE 1 TABLET DAILY AT BEDTIME FOR CHOLESTEROL melatonin 10 mg cap Take 10 mg by mouth. ESOMEPRAZOLE MAGNESIUM (NEXIUM 24HR ORAL) Take by mouth. FAMILY HISTORY Problem Relation Age of Onset Alzheimer's Disease Mother Arthritis Father Stroke Father Breast Cancer Maternal Aunt other (lung cancer) Maternal Aunt Prostate Cancer Son Stroke Other Fatal. Brother in law. Social History Tobacco Use Smoking status: Former Current packs/day: 0.00 Average packs/day: 1.3 packs/day for 32.0 years (41.7 ttl pk-yrs) Types: Cigarettes Start date: 03/10/1955 Quit date: 07/14/1986 Years since quittin.6 Smokeless tobacco: Never Tobacco comments: Parents did not smoke in childhood home. Spouse non smoker. Vaping Use Vaping status: Never Used Substance Use Topics Alcohol use: Yes Comment: Occasional. Drug use: No BP 130/78 Pulse 94 Temp (!) 38.3 ?C (100.9 ?F) Resp 21 Wt 67.6 kg (149 lb 0.5 oz) SpO2 95% BMI 26.40 kg/m? Review of Systems Constitutional: Positive for chills, fever and malaise/fatigue. HENT: Positive for congestion. Negative for ear discharge, ear pain, sinus pain and sore throat. Eyes: Negative for blurred vision, pain, discharge and redness. Respiratory: Positive for cough. Negative for hemoptysis, sputum production, shortness of breath, wheezing and stridor. Cardiovascular: Negative for chest pain. Gastrointestinal: Negative for abdominal pain, diarrhea, nausea and vomiting. Skin: Negative for itching and rash. Neurological: Positive for headaches. Negative for dizziness. Objective Physical Exam Constitutional: General: She is not in acute distress. Appearance: She is not diaphoretic. HENT: Head: Normocephalic. Jaw: No trismus, tenderness, swelling or pain on movement. Nose: Congestion present. Mouth/Throat: Mouth: Mucous membranes are moist. Pharynx: Oropharynx is clear. Uvula midline. No pharyngeal swelling, oropharyngeal exudate, posterior oropharyngeal erythema or uvula swelling. Eyes: Conjunctiva/sclera: Conjunctivae normal. Pupils: Pupils are equal, round, and reactive to light. Cardiovascular: Rate and Rhythm: Normal rate and regular rhythm. Heart sounds: Normal heart sounds. Pulmonary: Effort: Pulmonary effort is normal. No tachypnea, accessory muscle usage or respiratory distress. (more content not included)... [facility] 03-10-2024 History of Present illness Narrative Subjective HPI Nontoxic-appearing female presents urgent care chief complaint COVID-19 concerns. Duration of symptom 1 day. Associated symptoms cough headache nasal drainage body aches chills fatigue. Presents today for evaluation. Was exposed to individual who tested positive for COVID-19. No recent OTC medication use. Has been vaccinated against COVID-19. Denies history of COVID-19 in the past. Denies any productive cough chest pain shortness of breath pleuritic pain hemoptysis nausea vomiting abdominal pain change in bowel or bladder habits. Past medical history prescription medications allergies reviewed. .Patient presents with: Cough: VALIDVIA, drainage x 1 day PAST MEDICAL HISTORY 2012: Aortic sclerosis Comment: Found on echo No date: Arthritis of foot Comment: Bilateral heel spurs. 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 PAST SURGICAL HISTORY 03/2022: ARTHROPLASTY GLENOHUMRL JT HEMIARTHROPLASTY; Left Comment: Arthroplasty, shoulder 09/13/2021: BREAST LUMPECTOMY HX; Right Comment: U/S guided open right breast lumpectomy 03/26/2007: COLONOSCOPY FLX DX W/COLLJ SPEC WHEN PFRMD Comment: Colonoscopy No date: DILATION & CURETTAGE DX&/THER NONOBSTETRIC Comment: Dilation & curettage 1979: LAPAROSCOPY SURG CHOLECYSTECTOMY Comment: Cholecystectomy, lap No date: SKIN BIOPSY HX ALLERGIES Ciprofloxacin and Seasonal Allergies MEDICATIONS polyethylene glycol 3350 (MIRALAX) 17 gram/dose powder TAKE DAILY NEEDED FOR CONSTIPATION lisinopril (ZESTRIL) 30 mg tablet Take 1 tablet by mouth once daily. budesonide-formoterol (SYMBICORT) 160-4.5 mcg/actuation inhaler Inhale 2 Puffs as instructed two times a day. hydroCHLOROthiazide 12.5 mg capsule Take 1 capsule by mouth once daily. gabapentin (NEURONTIN) 100 mg capsule Take 1 capsule by mouth two times a day for 90 days. (dose at lunch time and dose at dinner time) rOPINIRole (REQUIP) 1 mg tablet Take 1 tablet by mouth daily at bedtime. solifenacin 10 mg tablet Take 0.5 tablets by mouth once daily. atorvastatin (LIPITOR) 20 mg tablet TAKE 1 TABLET DAILY AT BEDTIME FOR CHOLESTEROL melatonin 10 mg cap Take 10 mg by mouth. ESOMEPRAZOLE MAGNESIUM (NEXIUM 24HR ORAL) Take by mouth. FAMILY HISTORY Problem Relation Age of Onset Alzheimer's Disease Mother Arthritis Father Stroke Father Breast Cancer Maternal Aunt other (lung cancer) Maternal Aunt Prostate Cancer Son Stroke Other Fatal. Brother in law. Social History Tobacco Use Smoking status: Former Current packs/day: 0.00 Average packs/day: 1.3 packs/day for 32.0 years (41.7 ttl pk-yrs) Types: Cigarettes Start date: 03/10/1955 Quit date: 07/14/1986 Years since quittin.6 Smokeless tobacco: Never Tobacco comments: Parents did not smoke in childhood home. Spouse non smoker. Vaping Use Vaping status: Never Used Substance Use Topics Alcohol use: Yes Comment: Occasional. Drug use: No BP 130/78 Pulse 94 Temp (!) 38.3 C (100.9 F) Resp 21 Wt 67.6 kg (149 lb 0.5 oz) SpO2 95% BMI 26.40 kg/m Review of Systems Constitutional: Positive for chills, fever and malaise/fatigue. HENT: Positive for congestion. Negative for ear discharge, ear pain, sinus pain and sore throat. Eyes: Negative for blurred vision, pain, discharge and redness. Respiratory: Positive for cough. Negative for hemoptysis, sputum production, shortness of breath, wheezing and stridor. Cardiovascular: Negative for chest pain. Gastrointestinal: Negative for abdominal pain, diarrhea, nausea and vomiting. Skin: Negative for itching and rash. Neurological: Positive for headaches. Negative for dizziness. Objective Physical Exam Constitutional: General: She is not in acute distress. Appearance: She is not diaphoretic. HENT: Head: Normocephalic. Jaw: No trismus, tenderness, swelling or pain on movement. Nose: Congestion present. Mouth/Throat: Mouth: Mucous membranes are moist. Pharynx: Oropharynx is clear. Uvula midline. No pharyngeal swelling, oropharyngeal exudate, posterior oropharyngeal erythema or uvula swelling. Eyes: Conjunctiva/sclera: Conjunctivae normal. Pupils: Pupils are equal, round, and reactive to light. Cardiovascular: Rate and Rhythm: Normal rate and regular rhythm. Heart sounds: Normal heart sounds. Pulmonary: Effort: Pulmonary effort is normal. No tachypnea, accessory muscle usage or respiratory distress. Breath sounds: Normal breath sounds. No stridor. No wheezing, rhonchi or rales. Musculoskeletal: Cervical back: Normal range of motion and neck supple. No edema, erythema, rigidity or tenderness. No pain with movement. Normal range of motion. Lymphadenopathy: Cervical: No cervical adenopathy. Skin: General: Skin is warm and dry. Neurological: Mental Status: She is alert and oriented to person, place, and time. ASSESSMENT/PLAN: 1. Viral illness - ICD9: 079.99, ICD10: B34.9 (primary diagnosis) - COVID & INFLUENZA A/B & RSV PCR, ROUTINE 2. Acute upper respiratory infection, unspecified - ICD9: 465.9, ICD10: J06.9 - COVID & INFLUENZA A/B & RSV PCR, ROUTINE Patient nontoxic-appearing. Suspicious for COVID-19. Patient does meet criteria for antiviral therapies. I discussed antiviral therapies with patient. Patient does want to initiate therapy if positive for COVID-19. Recent labs in January 10, 2024. Creatinine 0.62. GFR 86. Patient was educated on supportive therapies. Patient will follow up with primary care provider as needed. Patient was instructed to immediately proceed to emergency room for any new, worsening, or symptoms lasting longer than anticipated. The patient's clinical presentation is otherwise unremarkable at this time. Based on exam and clinical finding, the patient is stable for discharge. Plan of care was discussed with patient. Patient verbalizes understanding and agrees to plan of care. This note was generated using flck.me software. It may contain errors in wording, punctuation, or spelling. Suhas Rivera APRN.STUDY LEAD documented in this encounter [facility] 02-27-2024 Instructions Nadia Brambila APRN.CNP - 02/27/2024 8:26 AM EDT 1) Increase lisinopril to 30 mg daily 2) Follow up in 1 months documented in this encounter [facility] 02-27-2024 Note HNO ID: [id number] Author: NADIA BRAMBILA APRN.CNP Service: ? Author Type: Clinical Nurse Specialist Type: Progress Notes Filed: 02/27/2024 08:27 Note Text: This is a 88 year old female who presents today with: Patient presents with: Hypertension HISTORY OF PRESENT ILLNESS: Marshall Wu is a 88 year old female. Patient presents with: Hypertension Had an episode of HTN, sent from urgent care to [facility] ER. They got blood pressure down and discharged. Has been under much stress in the last couple of weeks. Feeling overwhelmed. Feeling a little better. No helplessness or hopelessness. Was upset about golf game. HTN: Patient is compliant with meds Yes Monitors bp at home: on occasion. Denies side effects: not blood pressure medications. Chest pain: No. Dyspnea: No. Edema: No. Palpitations: Yes. Syncope: No. Headache: No. Dizziness: No. PAST MEDICAL HISTORY: PAST MEDICAL HISTORY 2012: Aortic sclerosis Comment: Found on echo No date: Arthritis of foot Comment: Bilateral heel spurs. 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 PAST SURGICAL HISTORY 03/2022: ARTHROPLASTY GLENOHUMRL JT HEMIARTHROPLASTY; Left Comment: Arthroplasty, shoulder 09/13/2021: BREAST LUMPECTOMY HX; Right Comment: U/S guided open right breast lumpectomy 03/26/2007: COLONOSCOPY FLX DX W/COLLJ SPEC WHEN PFRMD Comment: Colonoscopy No date: DILATION AND CURETTAGE DXAND/THER NONOBSTETRIC Comment: Dilation AND curettage 1980: LAPAROSCOPY SURG CHOLECYSTECTOMY Comment: Cholecystectomy, lap No date: SKIN BIOPSY HX ALLERGIES Ciprofloxacin and Seasonal Allergies MEDICATIONS Current Outpatient Medications Medication Sig budesonide-formoterol (SYMBICORT) 160-4.5 mcg/actuation inhaler Inhale 2 Puffs as instructed two times a day. lisinopril (ZESTRIL) 20 mg tablet Take 1 tablet by mouth once daily. gabapentin (NEURONTIN) 100 mg capsule Take 1 capsule by mouth two times a day for 90 days. (dose at lunch time and dose at dinner time) rOPINIRole (REQUIP) 1 mg tablet Take 1 tablet by mouth daily at bedtime. solifenacin 10 mg tablet Take 0.5 tablets by mouth once daily. hydroCHLOROthiazide 12.5 mg capsule Take 1 capsule by mouth once daily. atorvastatin (LIPITOR) 20 mg tablet TAKE 1 TABLET DAILY AT BEDTIME FOR CHOLESTEROL melatonin 10 mg cap Take 10 mg by mouth. ESOMEPRAZOLE MAGNESIUM (NEXIUM 24HR ORAL) Take by mouth. multivit,thx,calcium,iron,mins (MULTIVITAMIN AND MINERAL ORAL) Take by mouth. No current facility-administered medications for this visit. FAMILY HISTORY Problem Relation Age of Onset Alzheimer's Disease Mother Arthritis Father Stroke Father Breast Cancer Maternal Aunt other (lung cancer) Maternal Aunt Prostate Cancer Son Stroke Other Fatal. Brother in law. Social History Tobacco Use Smoking status: Former Packs/day: 1.30 Years: 32.00 Additional pack years: 0.00 Total pack years: 41.60 Types: Cigarettes Start date: 03/10/1954 Quit date: 07/14/1986 Years since quittin.6 Smokeless tobacco: Never Tobacco comments: Parents did not smoke in childhood home. Spouse non smoker. Vaping Use Vaping Use: Never used Substance Use Topics Alcohol use: Yes Comment: Occasional. Drug use: No EXAM: BP 144/76 Pulse 80 Wt 68.9 kg (152 lb) SpO2 95% BMI 26.93 kg/m? PHYSICAL EXAM: Physical Exam Vitals reviewed. Constitutional: Appearance: Normal appearance. HENT: Head: Normocephalic. Cardiovascular: Rate and Rhythm: Normal rate and regular rhythm. Pulses: Normal pulses. Heart sounds: Normal heart sounds. Pulmonary: Effort: Pulmonary effort is normal. Breath sounds: Normal breath sounds. Abdominal: Palpations: Abdomen is soft. Musculoskeletal: Comments: Moves all ext. Without difficulty Neurological: Mental Status: She is alert. LABS: ASSESSMENT/PLAN: 1. Chronic constipation - ICD9: 564.00, ICD10: K59.09 (primary diagnosis) Exacerbated by ropinerole - POLYETHYLENE GLYCOL 3350 17 GRAM/DOSE ORAL POWDER OTC 2. Essential hypertension, benign - ICD9: 401.1, ICD10: I10 - Uncontrolled - Recommend home blood pressure monitoring, to bring results to next visit - Encouraged sodium restriction, DASH or Mediterranean diet - Recommend regular aerobic exercise - LISINOPRIL 30 MG TABLET increased from 20 mg daily - BMP AND Mg 3. Essential hypertension - ICD9: 401.9, ICD10: I10 - Uncontrolled - Recommend home blood pressure monitoring, to bring results to next visit - Encouraged sodium restriction, DASH or Mediterranean diet - Recommend regular aerobic (more content not included)... [facility] 02-27-2024 History of Present illness Narrative This is a 88 year old female who presents today with: Patient presents with: Hypertension HISTORY OF PRESENT ILLNESS: Marshall Wu is a 88 year old female. Patient presents with: Hypertension Had an episode of HTN, sent from urgent care to [facility] ER. They got blood pressure down and discharged. Has been under much stress in the last couple of weeks. Feeling overwhelmed. Feeling a little better. No helplessness or hopelessness. Was upset about golf game. HTN: Patient is compliant with meds Yes Monitors bp at home: on occasion. Denies side effects: not blood pressure medications. Chest pain: No. Dyspnea: No. Edema: No. Palpitations: Yes. Syncope: No. Headache: No. Dizziness: No. PAST MEDICAL HISTORY: PAST MEDICAL HISTORY 2013: Aortic sclerosis Comment: Found on echo No date: Arthritis of foot Comment: Bilateral heel spurs. 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 PAST SURGICAL HISTORY 03/2022: ARTHROPLASTY GLENOHUMRL JT HEMIARTHROPLASTY; Left Comment: Arthroplasty, shoulder 09/13/2021: BREAST LUMPECTOMY HX; Right Comment: U/S guided open right breast lumpectomy 03/26/2007: COLONOSCOPY FLX DX W/COLLJ SPEC WHEN PFRMD Comment: Colonoscopy No date: DILATION & CURETTAGE DX&/THER NONOBSTETRIC Comment: Dilation & curettage 1979: LAPAROSCOPY SURG CHOLECYSTECTOMY Comment: Cholecystectomy, lap No date: SKIN BIOPSY HX ALLERGIES Ciprofloxacin and Seasonal Allergies MEDICATIONS Current Outpatient Medications Medication Sig budesonide-formoterol (SYMBICORT) 160-4.5 mcg/actuation inhaler Inhale 2 Puffs as instructed two times a day. lisinopril (ZESTRIL) 20 mg tablet Take 1 tablet by mouth once daily. gabapentin (NEURONTIN) 100 mg capsule Take 1 capsule by mouth two times a day for 90 days. (dose at lunch time and dose at dinner time) rOPINIRole (REQUIP) 1 mg tablet Take 1 tablet by mouth daily at bedtime. solifenacin 10 mg tablet Take 0.5 tablets by mouth once daily. hydroCHLOROthiazide 12.5 mg capsule Take 1 capsule by mouth once daily. atorvastatin (LIPITOR) 20 mg tablet TAKE 1 TABLET DAILY AT BEDTIME FOR CHOLESTEROL melatonin 10 mg cap Take 10 mg by mouth. ESOMEPRAZOLE MAGNESIUM (NEXIUM 24HR ORAL) Take by mouth. multivit,thx,calcium,iron,mins (MULTIVITAMIN AND MINERAL ORAL) Take by mouth. No current facility-administered medications for this visit. FAMILY HISTORY Problem Relation Age of Onset Alzheimer's Disease Mother Arthritis Father Stroke Father Breast Cancer Maternal Aunt other (lung cancer) Maternal Aunt Prostate Cancer Son Stroke Other Fatal. Brother in law. Social History Tobacco Use Smoking status: Former Packs/day: 1.30 Years: 32.00 Additional pack years: 0.00 Total pack years: 41.60 Types: Cigarettes Start date: 03/10/1955 Quit date: 07/14/1986 Years since quittin.6 Smokeless tobacco: Never Tobacco comments: Parents did not smoke in childhood home. Spouse non smoker. Vaping Use Vaping Use: Never used Substance Use Topics Alcohol use: Yes Comment: Occasional. Drug use: No EXAM: BP 144/76 Pulse 80 Wt 68.9 kg (152 lb) SpO2 95% BMI 26.93 kg/m PHYSICAL EXAM: Physical Exam Vitals reviewed. Constitutional: Appearance: Normal appearance. HENT: Head: Normocephalic. Cardiovascular: Rate and Rhythm: Normal rate and regular rhythm. Pulses: Normal pulses. Heart sounds: Normal heart sounds. Pulmonary: Effort: Pulmonary effort is normal. Breath sounds: Normal breath sounds. Abdominal: Palpations: Abdomen is soft. Musculoskeletal: Comments: Moves all ext. Without difficulty Neurological: Mental Status: She is alert. LABS: ASSESSMENT/PLAN: 1. Chronic constipation - ICD9: 564.00, ICD10: K59.09 (primary diagnosis) Exacerbated by ropinerole - POLYETHYLENE GLYCOL 3350 17 GRAM/DOSE ORAL POWDER OTC 2. Essential hypertension, benign - ICD9: 401.1, ICD10: I10 - Uncontrolled - Recommend home blood pressure monitoring, to bring results to next visit - Encouraged sodium restriction, DASH or Mediterranean diet - Recommend regular aerobic exercise - LISINOPRIL 30 MG TABLET increased from 20 mg daily - BMP & Mg 3. Essential hypertension - ICD9: 401.9, ICD10: I10 - Uncontrolled - Recommend home blood pressure monitoring, to bring results to next visit - Encouraged sodium restriction, DASH or Mediterranean diet - Recommend regular aerobic exercise - HYDROCHLOROTHIAZIDE 12.5 MG CAPSULE 4. 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) - ICD9: 496, ICD10: J44.9 Stable on Symbicort - BUDESONIDE-FORMOTEROL HFA 160 MCG-4.5 MCG/ACTUATION AEROSOL INHALER 5. Other emphysema (HCC) - ICD9: 492.8, ICD10: J43.8 Stable Discussed treatment plan and patient voices understanding. Patient's questions answered appropriately. Medications and potential side effects were discussed and patient voices understanding. Return to the office as scheduled or as needed for worsening/no improvement. Nadia Brambila APRN.INDRA documented in this encounter [facility] 02-25-2024 Telephone encounter Note Patient came in to after this message was sent. [facility] 02-25-2024 Miscellaneous Notes Patient came in to after this message was sent. documented in this encounter [facility] 02-25-2024 Note HNO ID: [id number] Author: NANY WILLS APRN.CNP Service: ? Author Type: Nurse Practitioner Type: Progress Notes Filed: 02/25/2024 11:22 Note Text: Called by [facility] staff to triage patient. Patient presents with concerns over elevated BP this morning. States her home reading was 178 over something Here in clinic 186/86 Feel shaky Given concerns and limitations of express care, she was referred to [facility] 02-25-2024 History of Present illness Narrative Called by [facility] staff to triage patient. Patient presents with concerns over elevated BP this morning. States her home reading was 178 over something Here in clinic 186/86 Feel shaky Given concerns and limitations of express care, she was referred to [facility] documented in this encounter [facility] 02-16-2024 Note HNO ID: [id number] Author: SERGEI LAUREN RN Service: ? Author Type: Registered Nurse Type: Progress Notes Filed: 02/16/2024 16:23 Note Text: [facility] Telephonic Outreach Provider Action/FYI Contacted for: Routine Telephonic Outreach Contact made with patient: Yes Patient identified by name and date of . Discussed care with patient Are you experiencing any new or worsening symptoms you need to talk about today? No Based on glass block bender, the following disposition is advised: No symptoms or symptoms present, not severe. Routed to: No Action Needed LEE Education Provided this Outreach: No Doing well Hot from playing golf today No concerns Sergei Lauren RN February 16, 2024 4:23 PM [facility] 02-16-2024 History of Present illness Narrative [facility] Telephonic Outreach Provider Action/FYI Contacted for: Routine Telephonic Outreach Contact made with patient: Yes Patient identified by name and date of . Discussed care with patient Are you experiencing any new or worsening symptoms you need to talk about today? No Based on glass block bender, the following disposition is advised: No symptoms or symptoms present, not severe. Routed to: No Action Needed LEE Education Provided this Outreach: No Doing well Hot from playing golf today No concerns Sergei Lauren RN February 16, 2024 4:23 PM documented in this encounter [facility] 02-16-2024 Note Patient Outreach ([facility]) ---- MARSHALL WU ([id number]) 1935 F Date Time Provider Department 02/16/24 SERGEI LAUREN [facility] During your visit today, we recorded the following information about you: Sergei Lauren RN 02/16/2024 4:23 PM Signed [facility] Telephonic Outreach Provider Action/FYVlad Contacted for: Routine Telephonic Outreach Contact made with patient: Yes Patient identified by name and date of . Discussed care with patient Are you experiencing any new or worsening symptoms you need to talk about today? No Based on glass block bender, the following disposition is advised: No symptoms or symptoms present, not severe. Routed to: No Action Needed LEE Education Provided this Outreach: No Doing well Hot from playing golf today No concerns Sergei Lauren RN February 16, 2024 4:23 PM Allergies As of Date: 02/16/2024 Noted Allergy Reaction CIPROFLOXACIN 03/14/2019 14 - Other: See Comments Comments: Ankle and achilles pain SEASONAL ALLERGIES 12/19/2016 5 - Intolerance Date Reviewed: 12/24/2023 Reviewed by: Jacy Damon LPN - Fully Assessed Reason for Visit: community monitoring outreach [Other] Cmt: CDM-Telephonic outreach Prescriptions as of 02/16/2024 - budesonide-formoterol (SYMBICORT) 160-4.5 mcg/actuation inhaler Inhale 2 Puffs as instructed two times a day. - lisinopril (ZESTRIL) 20 mg tablet Take 1 tablet by mouth once daily. - multivit,thx,calcium,iron,mins (MULTIVITAMIN AND MINERAL ORAL) Take by mouth. - gabapentin (NEURONTIN) 100 mg capsule Take 1 capsule by mouth two times a day for 90 days. (dose at lunch time and dose at dinner time) - rOPINIRole (REQUIP) 1 mg tablet Take 1 tablet by mouth daily at bedtime. - solifenacin 10 mg tablet Take 0.5 tablets by mouth once daily. - hydroCHLOROthiazide 12.5 mg capsule Take 1 capsule by mouth once daily. - atorvastatin (LIPITOR) 20 mg tablet TAKE 1 TABLET DAILY AT BEDTIME FOR CHOLESTEROL - melatonin 10 mg cap Take 10 mg by mouth. - ESOMEPRAZOLE MAGNESIUM (NEXIUM 24HR ORAL) Take by mouth. Problem List As Of Date 02/16/2024 Noted Resolved Essential hypertension, benign [I10] Restless leg [G25.81] Hyperlipidemia [E78.5] GERD (gastroesophageal reflux disease) [K21.9] Osteopenia [M85.80] Cervicalgia [M54.2] 04/12/2015 Simple chronic bronchitis (HCC) [J41.0] 04/08/2017 Hyperglycemia [R73.9] 03/02/2019 COPD (chronic obstructive pulmonary disease) (H*03/25/2013 Multiple thyroid nodules [E04.2] 02/03/2021 Chronic sore throat [J31.2] 02/11/2021 Breast cyst, right [N60.01] 07/30/2021 Nontraumatic complete tear of left rotator cuff*07/31/2021 Squamous cell carcinoma in situ (SCCIS) of skin*07/31/2021 Acute midline low back pain without sciatica [M*11/06/2022 Encounter Status:Closed by SERGEI LAUREN on 02/16/24 [facility] 01-23-2024 Telephone encounter Note Phone call placed patient advised of provider recommendations to discontinue Gabapentin over the weekend 01/23/2024-01/25/2024 agreeable to provide update on Friday. Patient verbalized understanding, agreed with plan of care. Anh Hannon LPN [facility] 01-23-2024 Miscellaneous Notes Phone call placed patient advised of provider recommendations to discontinue Gabapentin over the weekend 01/23/2024-01/25/2024 agreeable to provide update on Friday. Patient verbalized understanding, agreed with plan of care. Anh Hannon LPN Messages received from patient unclear. Appears now on Fe supplement. However indicating RLS worse. Please explain that the gabapentin is for the purpose of treating discomfort/RLS. If pt feels symptoms worse with medication, then recommend it be held for the weekend to see if symptoms were to improve. If not, then gabapentin might not be the cause. Bang Plummer MD documented in this encounter [facility] 01-23-2024 Telephone encounter Note Messages received from patient unclear. Appears now on Fe supplement. However indicating RLS worse. Please explain that the gabapentin is for the purpose of treating discomfort/RLS. If pt feels symptoms worse with medication, then recommend it be held for the weekend to see if symptoms were to improve. If not, then gabapentin might not be the cause. Bang Plummer MD [facility] 01-19-2024 History of Present illness Narrative CDM Telephonic Outreach Provider Action/FYI COPD- baseline No concerns Doing well today Contacted for: Routine Telephonic Outreach Contact made with patient: Yes Patient identified by name and date of . Discussed care with patient Are you experiencing any new or worsening symptoms you need to talk about today? No Based on glass block bender, the following disposition is advised: No symptoms or symptoms present, not severe. Routed to: No Action Needed LEE Education Provided this Outreach: No Sergei Lauren RN January 19, 2024 1:19 PM documented in this encounter [facility] 01-13-2024 Telephone encounter Note Addressed in MyChart encounter dated 01/12/2024, no further action. Anh Hannon LPN [facility] 01-13-2024 Miscellaneous Notes Addressed in MyChart encounter dated 01/12/2024, no further action. Anh Hannon LPN documented in this encounter [facility] 01-12-2024 Telephone encounter Note Phone call placed patient advised of provider recommendations. Patient agreeable to start iron supplementation, verbalized understanding, agreed with plan of care. [employer] message sent, logon 01/12/2024. Anh Hannon LPN [facility] 01-12-2024 Miscellaneous Notes Phone call placed patient advised of provider recommendations. Patient agreeable to start iron supplementation, verbalized understanding, agreed with plan of care. [employer] message sent, logon 01/12/2024. Anh Hannon LPN ----- Message from Bang Plummer Jr., MD sent at 01/11/2024 10:27 PM EDT ----- Patient with low Ferritin level with regards to RLS and thus would advise to start on FeSO4 325 mg - 1 tab twice daily with meals - to see if RLS symptoms improve. Bang Plummer MD documented in this encounter [facility] 01-12-2024 Telephone encounter Note ----- Message from Bang Plummer Jr., MD sent at 01/11/2024 10:27 PM EDT ----- Patient with low Ferritin level with regards to RLS and thus would advise to start on FeSO4 325 mg - 1 tab twice daily with meals - to see if RLS symptoms improve. Bang Plummer MD [facility] 01-07-2024 Telephone encounter Note Patient calls to schedule appointment for hip pain. Per triage protocol patient should be seen within 3 days. Patient agreeable. Appointment scheduled. Care advice reviewed. 1. LOCATION and RADIATION:Localized to the left hip and into the leg 2. QUALITY:Aching/Sharp 3. SEVERITY: - MODERATE (4-7): interferes with normal activities (e.g., work or school) or awakens from sleep, limping Able to walk just painful. Tylenol arthritis has taken some of the pain away. 4. ONSET: Present all the time since playing golf a couple/few days ago. 5. WORK OR EXERCISE: Patient reports overuse with golfing. 6. CAUSE: Overuse from golfing 7. AGGRAVATING FACTORS:Walking and movement makes it worse 8. OTHER SYMPTOMS: No back pain, pain shooting down leg, fever, rash Donna Salas, RN [facility] 01-07-2024 Miscellaneous Notes Patient calls to schedule appointment for hip pain. Per triage protocol patient should be seen within 3 days. Patient agreeable. Appointment scheduled. Care advice reviewed. 1. LOCATION and RADIATION:Localized to the left hip and into the leg 2. QUALITY:Aching/Sharp 3. SEVERITY: - MODERATE (4-7): interferes with normal activities (e.g., work or school) or awakens from sleep, limping Able to walk just painful. Tylenol arthritis has taken some of the pain away. 4. ONSET: Present all the time since playing golf a couple/few days ago. 5. WORK OR EXERCISE: Patient reports overuse with golfing. 6. CAUSE: Overuse from golfing 7. AGGRAVATING FACTORS:Walking and movement makes it worse 8. OTHER SYMPTOMS: No back pain, pain shooting down leg, fever, rash Donna Salas RN documented in this encounter [facility] 12-24-2023 History of Present illness Narrative Images from the original note were not included. Patient: Marshall Wu PCP: Tee Montgomery PA-C CC: follow up HPI: Marshall Wu 88 year old female former [id number] smoker having quit in 1986 with PMH significant for mild COPD, aortic stenosis, HTN, GERD, HLD, melanoma, and breast cancer. Last office visit 06/02/[address] Chavez for acute visit for URI. Current maintenance therapy with Breyna. She has not been happy with the new inhaler. She states that it doesn't always seem to dispense medication. She has called and talked to pharmacist at mail order as well as the salesperson [employer]. She would prefer to change back to Symbicort. Today, patient reports minimal cough or sputum production. No hemoptysis. No wheezing. No dyspnea at rest. Exertional dyspnea with walking long distances and climbing stairs. She has noticed that this golf season she is having a hard time playing 18 holes. She can play 9-11, but then needs to take a break. No fevers, chills, or night sweats. No unintended weight loss. No lower extremity edema. No GERD/heartburn. No recent hospitalizations or ED visits or upper respiratory infections. Reports post nasal drip with seasonal allergies. Has Flonase at home, but has not been using it. PAST MEDICAL HISTORY Diagnosis Date Aortic sclerosis 2012 Found on echo Arthritis of foot Bilateral heel spurs. 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 multivit,thx,calcium,iron,mins (MULTIVITAMIN AND MINERAL ORAL) Take by mouth. gabapentin (NEURONTIN) 100 mg capsule Take 1 capsule by mouth two times a day for 90 days. (dose at lunch time and dose at dinner time) budesonide-formoterol (BREYNA) 160-4.5 mcg/actuation inhaler Inhale 2 Puffs as instructed two times a day. rOPINIRole (REQUIP) 1 mg tablet Take 1 tablet by mouth daily at bedtime. solifenacin 10 mg tablet Take 0.5 tablets by mouth once daily. hydroCHLOROthiazide 12.5 mg capsule Take 1 capsule by mouth once daily. atorvastatin (LIPITOR) 20 mg tablet TAKE 1 TABLET DAILY AT BEDTIME FOR CHOLESTEROL melatonin 10 mg cap Take 10 mg by mouth. ESOMEPRAZOLE MAGNESIUM (NEXIUM 24HR ORAL) Take by mouth. Social History Tobacco Use Smoking status: Former Packs/day: 1.30 Years: 32.00 Additional pack years: 0.00 Total pack years: 41.60 Types: Cigarettes Start date: 03/10/1955 Quit date: 07/14/1986 Years since quittin.4 Smokeless tobacco: Never Tobacco comments: Parents did not smoke in childhood home. Spouse non smoker. Vaping Use Vaping Use: Never used Substance Use Topics Alcohol use: Yes Comment: Occasional. Drug use: No Family History Problem Relation Age of Onset Alzheimer's Disease Mother Arthritis Father Stroke Father Breast Cancer Maternal Aunt other (lung cancer) Maternal Aunt Prostate Cancer Son Stroke Other Fatal. Brother in law. PAST SURGICAL HISTORY Procedure Laterality Date ARTHROPLASTY GLENOHUMRL JT HEMIARTHROPLASTY Left 03/2022 Arthroplasty, shoulder BREAST LUMPECTOMY HX Right 09/13/2021 U/S guided open right breast lumpectomy COLONOSCOPY FLX DX W/COLLJ SPEC WHEN PFRMD 03/26/2007 Colonoscopy DILATION & CURETTAGE DX&/THER NONOBSTETRIC Dilation & curettage LAPAROSCOPY SURG CHOLECYSTECTOMY 1980 Cholecystectomy, lap SKIN BIOPSY HX I reviewed the past medical history, family history, social history and surgical history with changes noted above and updated in EMR. IMMUNIZATIONS Prevnar 13 - 2014 Pneumovax 23 - 2007 Influenza - 2022 COVID-19 - most recent 10/2021 ROS: All other systems reviewed as negative except for what is noted in HPI and review of systems. PHYSICAL EXAMINATION: BP 116/62 Pulse 98 Resp 18 Wt 68.9 kg (152 lb) SpO2 97% BMI 26.93 kg/m Gen: No acute distress. Cooperative with examination. HEENT: Normocephalic. Sclera, conjunctiva clear. Oral hygeine and dentition good. No thrush. Resp: No stridor, accessory respiratory muscle use, supra-sternal or intercostal retractions. No wheezes, crackles, or rhonchi. CV: Regular rythm. Heart tones normal. Radial pulses normal. Ext: Warm and well perfused. No clubbing, cyanosis, edema. Skin: No rash, ecchymoses. Neuro: Mental status normal. Affect normal. No tremor. DATA: PFT, 02/06/2023 Spirometry indicates mild obstruction. CXR, 05/13/2023 IMPRESSION: No acute radiographic abnormality. COMPARISON: Chest radiograph 04/15/2016, 03/10/2014 RESULT: Lines, tubes, and devices: None. Lungs and pleura: No consolidation or edema. No pleural effusion or pneumothorax. Cardiomediastinal silhouette: Normal cardiomediastinal silhouette. Bones and soft tissues: Status post reverse LEFT total shoulder arthroplasty. Endplate degenerative changes in the visualized spine. ASSESSMENT/PLAN: 1. 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) - ICD9: 496, ICD10: J44.9 (primary diagnosis) Symptomatically doing well. Resume Symbicort 2 inhalations twice daily. Rinse mouth after each use to help prevent oral thrush. Discussed Albuterol inhaler, however, patient declines. Start Flonase nasal spray. - SPIROMETRY BASELINE ONLY - BUDESONIDE-FORMOTEROL HFA 160 MCG-4.5 MCG/ACTUATION AEROSOL INHALER 2. Former smoker - ICD9: V15.82, ICD10: Z87.891 Patient does not qualify for lung cancer screening based on age and smoking cessation duration. Portions of this documentation were copied and pasted from previous office visit notes in order to provide a cohesive continuity of the history. The note has been reviewed and edited and updated as necessary. Kamille Rizo PA-C documented in this encounter [facility] 12-23-2023 Telephone encounter Note Pt was instructed medication refill was sent in for her by provider to [facility]. This is okay by pt. Carolyn Hannon LPN [facility] 12-23-2023 Miscellaneous Notes Pt was instructed medication refill was sent in for her by provider to [facility]. This is okay by pt. Carolyn Hannon LPN documented in this encounter [facility] 12-23-2023 Telephone encounter Note The following approved medication requests have been transmitted electronically. Requested Prescriptions Signed Prescriptions Disp Refills lisinopril (ZESTRIL) 20 mg tablet 90 tablet 1 Sig: Take 1 tablet by mouth once daily. Tee Montgomery PA-C [facility] 12-23-2023 Miscellaneous Notes The following approved medication requests have been transmitted electronically. Requested Prescriptions Signed Prescriptions Disp Refills lisinopril (ZESTRIL) 20 mg tablet 90 tablet 1 Sig: Take 1 tablet by mouth once daily. Tee Montgomery PA-C Left message to return call. Also need to know which pharmacy she would use if it is refilled. Medication note says d/c due to side effects. Did she report a side effect? I don't have it identified in her note. Thanks, Jeramie Montgomery PA-C See pt message. Lisinopril was stopped at visit on 10/27/23, do not see in note that medication should be d/c. I have pended Rx. Please notify pt via [employer] once Rx has been sent. Augusta Mcgrath MA documented in this encounter [facility] 12-23-2023 Telephone encounter Note Left message to return call. Also need to know which pharmacy she would use if it is refilled. [facility] 12-22-2023 Telephone encounter Note Medication note says d/c due to side effects. Did she report a side effect? I don't have it identified in her note. Thanks, Jeramie Montgomery PA-C [facility] 12-22-2023 History of Present illness Narrative NEW PATIENT (CONSULT) HISTORY AND PHYSICAL EXAM PRIMARY CARE PHYSICIAN: Tee Montgomery PA-C REASON FOR CONSULT: Neuropathy RLS REFERRING PHYSICIAN: Tee Montgomery PA-C CHIEF COMPLAINT: Legs bother me and my balance is worse. Consultation requested by Tee Montgomery PA-C for an opinion regarding chief complaint of No chief complaint on file. and my final recommendations will be communicated back to the requesting physician by way of shared medical record or letter via [place] mail. HISTORY OF PRESENT ILLNESS: Marshall A Goodlive is a 88 year old female, with a PMH significant for that noted below. Referred for RLS vs neuropathy or both. Note prior to visit, TSH, B12, SPEP unremarkable with mild elevation in A1c. Also on Requip 1mg at bedtime for reported RLS. Patient states symptoms are getting worse and balance is not what it was. Patient states that restlessness is only in one leg at a time and jerks. States sometimes starts in the afternoon but mostly at bedtime. If gets up and walks around symptoms improve. Takes Requip at bedtime. Does not always have a hard time falling asleep. Feels balance issues started in August of this year. No associated spine pain. More unsteady on uneven surfaces. States couple years ago had episode where RLE gave out and fell. No vertigo or lightheaded. States pretty active despite this and swims twice per week and golfing regularly and walking on other days. States legs sometimes feel weaker than they should No loss of bowel or bladder control. No vision changes. Chronic lumbar pain and saw Dr. Bro Burdick last year - dx with scoliosis and DDD. No numbness. No coloration changes of lower ext. Legs often feel cold. EMG/NCV 2019: Nerve conduction studies performed in the right lower extremity revealed absent sural and superficial peroneal responses. A moderatedecrement of both the peroneal and tibial compound muscle action potential amplitudes was noted and the H reflex was absent. Extensive needle electrode examination of the right lower extremity revealed increased numbers of high amplitude, long duration motor unit potentials with a neurogenic recruitment pattern in the flexor digitorum longus, tibialis anterior and medial gastrocnemius. Some irritability was noted in the abductor hallucis. 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 Further electrodiagnostic examination of the upper extremities may be helpful in further evaluation. REVIEW OF SYSTEMS GENERAL:No weight loss, malaise or fevers. HEENT:Negative for frequent or significant headaches, No changes in hearing or vision, no nose bleeds or other nasal problems NECK:Negative for lumps, goiter, pain and significant neck swelling RESPIRATORY: Negative for cough, wheezing or shortness of breath. CARDIOVASCULAR: Negative for chest pain, leg swelling or palpitations. GASTROINTESTINAL: Negative for abdominal discomfort, blood in stools or black stools or change in bowel habits GENITOURINARY: No history of dysuria, frequency or incontinence MUSCULOSKELETAL: Negative for joint pain or swelling, back pain or muscle pain. NEUROLOGIC:Negative for focal numbness or weakness, headaches and dizziness or syncope, vision changes, speech/language changes, changes in gait or falls -- besides those complaints as above in HPI. SKIN:Negative for lesions, rash, and itching. PSYCHIATRIC: Negative for sleep disturbance, mood disorder and recent psychosocial stressors. HEMATOLOGIC/LYMPHATIC/IMMUNOLOGIC:Nega tive for prolonged bleeding, bruising easily or swollen nodes. ENDOCRINE: Negative for cold or heat intolerance, polyuria, polydipsia and goiter. The remainder of the ROS was reviewed and is negative. LAB/IMAGING: Reviewed and include: WBC (k/uL) Date Value 09/27/2023 5.97 RBC (m/uL) Date Value 09/27/2023 4.58 Hemoglobin (g/dL) Date Value 09/27/2023 13.7 Hematocrit (%) Date Value 09/27/2023 42.4 MCV (fL) Date Value 09/27/2023 92.6 MCH (pg) Date Value 09/27/2023 29.9 MCHC (g/dL) Date Value 09/27/2023 32.3 RDW-CV (%) Date Value 09/27/2023 13.5 Platelet Count (k/uL) Date Value 09/27/2023 243 MPV (fL) Date Value 09/27/2023 11.0 Glucose (mg/dL) Date Value 09/27/2023 105 (H) BUN (mg/dL) Date Value 09/27/2023 14 Creatinine (mg/dL) Date Value 09/27/2023 0.69 Sodium (mmol/L) Date Value 09/27/2023 140 Potassium (mmol/L) Date Value 09/27/2023 4.0 Chloride (mmol/L) Date Value 09/27/2023 103 CO2 (mmol/L) Date Value 09/27/2023 25 Protein, Total (g/dL) Date Value 09/27/2023 6.7 09/27/2023 6.7 Albumin (g/dL) Date Value 09/27/2023 4.1 Calcium, Total (mg/dL) Date Value 09/27/2023 9.5 Alkaline Phosphatase (U/L) Date Value 09/27/2023 101 Bilirubin, Total (mg/dL) Date Value 09/27/2023 0.6 AST (U/L) Date Value 09/27/2023 15 ALT (U/L) Date Value 09/27/2023 9 MEDICATIONS: budesonide-formoterol (BREYNA) 160-4.5 mcg/actuation inhaler Inhale 2 Puffs as instructed two times a day. rOPINIRole (REQUIP) 1 mg tablet Take 1 tablet by mouth daily at bedtime. solifenacin 10 mg tablet Take 0.5 tablets by mouth once daily. hydroCHLOROthiazide 12.5 mg capsule Take 1 capsule by mouth once daily. atorvastatin (LIPITOR) 20 mg tablet TAKE 1 TABLET DAILY AT BEDTIME FOR CHOLESTEROL melatonin 10 mg cap Take 10 mg by mouth. ESOMEPRAZOLE MAGNESIUM (NEXIUM 24HR ORAL) Take by mouth. HISTORIES PAST MEDICAL HISTORY Diagnosis Date Aortic sclerosis 2012 Found on echo Arthritis of foot Bilateral heel spurs. 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 Brother in law. SOCIAL HISTORY Social History Tobacco Use Smoking status: Former Packs/day: 1.30 Years: 32.00 Additional pack years: 0.00 Total pack years: 41.60 Types: Cigarettes Start date: 03/10/1955 Quit date: 07/14/1986 Years since quittin.4 Smokeless tobacco: Never Tobacco comments: Parents did not smoke in childhood home. Spouse non smoker. Vaping Use Vaping Use: Never used Substance Use Topics Alcohol use: Yes Comment: Occasional. Drug use: No PHYSICAL EXAMINATION There were no vitals taken for this visit. GENERAL EXAM: General appearance: NAD, pleasant. HEENT: NC/AT, nasal congestion absent, no oral lesions, membranes moist. NECK: ROM nml. Lungs: CTA bilaterally. CV: RRR nl S1, S2 Extr: No cyanosis, clubbing or edema. Extremity pulses palpable and normal. Skin: Cool to touch. NEUROLOGICAL EXAM: General: Awake, alert, oriented x3 (person,place,time), fluent, no dysarthria; comprehension, naming, repetition intact. CN: PERRL, fundi with no evidence of papilledema, EOMI and without nystagmus, VFF to confrontation, facial sensation and strength are normal and symmetric, hearing is intact to finger rub bilaterally, palate and tongue movements are intact and symmetric. SCM and trapezius strength normal. Motor: Normal tone, bulk and strength (5/5) bilaterally (throughout extremities x4). Reflexes: 1/4 and symmetric, plantar stimulation is flexor. Coordination: FNF, CASSIUS, HTS intact. No tremors. Sensation: LT, vibration, but temperature and pain diminished in stocking pattern. Patient notes pain in vitor shins when pushing out during strength testing - immediately relieved without contact. No evidence of neglect. Gait: Stable with normal stride and arm swing. Assessment and Plan: ASSESSMENT/PLAN: 1. Neuropathy - ICD9: 355.9, ICD10: G62.9 (primary diagnosis) Patient with balance issues that are no obvious on exam. No falls. Prior L spine workup not concerning, and while degenerative disc disease noted on XR, no weakness on exam or pain/discomfort typical of spine etiology. Besides stocking glove sensory deficits, non focal neuro exam. Patient very active. 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 Extensive lab workup already performed by PCP, but will add WSR and [place] with reflex to complete neuropathy labs. No known exposures to heavy metals or other toxins that might induce neuropathy. No history of chemotherapy. No family history of neuropathy. Mild elevated glucose which might be contributing to disorder. Encouraged exercise. Pt does not feel she needs PT. 2. Restless leg - ICD9: 333.94, ICD10: G25.81 As above, noted urge to move, worse towards the night time and improved with actual movement. No prior Fe or Ferritin levels, and will add to next set of patient's labs - distant history of Fe deficiency. For discomfort or urge to move, will start patient on gabapentin 100mg at lunch and 100mg at dinner to see if improves discomfort and urge to move prior to bedtime. Will continue Requip for now. Will likely need titration of gabapentin dosing and if successful in controlling symptoms, then will try to transition from Requip to gabapentin. Likewise, gabapentin may help with nay discomfort associated with neuropathy. SE and ADRs d/w pt. Pt agrees with plan as above. Bang Plummer MD PDMP website checked and validated. All prescriptions have been APPROPRIATELY filled. No suspicious activity was identified. 12/22/2023 by Bang Plummer MD Medical Decision Making: Problems: Moderate: New problem with uncertain prognosis Data: Unique test result(s) reviewed: 3+ Unique test(s) ordered: 1 Risk: Moderate: Drug management Medical Decision Making Level: 4 - Moderate documented in this encounter [facility] 12-22-2023 Telephone encounter Note See pt message. Lisinopril was stopped at visit on 10/27/23, do not see in note that medication should be d/c. I have pended Rx. Please notify pt via [employer] once Rx has been sent. Augusta Mcgrath MA [facility] 12-12-2023 History of Present illness Narrative [facility] Telephonic Outreach Provider Mg/MINO Has a few December appointments Discussed 12/21 Neurology appointment-evaluation for neuropathy. No additional concerns Contacted for: Routine Telephonic Outreach Contact made with patient: Yes Patient identified by name and date of . Discussed care with patient Are you experiencing any new or worsening symptoms you need to talk about today? No Disease Specific Do you check your blood pressure at home? No Do you have new or worsening shortness of breath with activity? No Based on glass block bender, the following disposition is advised: No symptoms or symptoms present, not severe. Routed to: No Action Needed LEE Education Provided this Outreach: No Sergei Lauren RN December 15, 2023 10:35 AM documented in this encounter [facility] 11-18-2023 History of Present illness Narrative Images from the original note were not included. DATE OF SERVICE: 11/18/2023 PATIENT NAME: Marshall Wu : 1935 AGE: 88 y.o. CLINIC NUMBER: [id number] Visit type: Established patient Chief Complaint Patient presents with Skin Lesion (LMS) Subjective HISTORY OF PRESENT ILLNESS: Marshall Wu is a 88 y.o. with a history of skin cancer who presents today for a skin check. 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 The patient has no family history of skin cancer, no family history of melanoma, there is a history of excessive sun exposure, patient has never used tanning beds, does not use sunscreen regularly. C/o spot on R cheek and above nose x couple months. Pt states the lesion is tender at times when rubbed. Has not bled. C/o spot on L knee x 1 weeks. No change in size or color. Not itchy, tender or bothersome C/o spot on R wrist x months. Pt states the lesion is still present. No change in size or color. Not itchy, tender or bothersome History of pacemaker/ defibrillator? No History of HIV/ Hep C? No Allergies to Lidocaine, Epinephrine, Latex or Adhesive? No Review of Systems Dermatology: as per HPI, otherwise negative There were no vitals filed for this visit. PHYSICAL EXAM: GENERAL APPEARANCE:?alert and oriented x3, well developed and well nourished. PSYCH: appropriate mood and affect DERMATOLOGY: Please see diagram of patient examination (all noted lesions were examined dermoscopically; all measured lesions are pigmented macules with benign nevus patterns, unless otherwise noted) 1. Neoplasm of uncertain behavior of skin (2) Nasal Bridge Skin Biopsy Type of biopsy: tangential Informed consent: discussed and consent obtained Timeout: patient name, date of , surgical site, and procedure verified Anesthesia: the lesion was anesthetized in a standard fashion Anesthetic: 1% lidocaine w/ epinephrine 1-100,000 buffered w/ 8.4% NaHCO3 Instrument used: DermaBlade Hemostasis achieved with: electrodesiccation Outcome: patient tolerated procedure well Post-procedure details: wound care instructions given Specimen A - Tissue exam Differential Diagnosis: Dilated pore/Cyst vs Other Check Margins: No Left Lateral Knee Skin Biopsy Type of biopsy: tangential Informed consent: discussed and consent obtained Timeout: patient name, date of , surgical site, and procedure verified Anesthesia: the lesion was anesthetized in a standard fashion Anesthetic: 1% lidocaine w/ epinephrine 1-100,000 buffered w/ 8.4% NaHCO3 Instrument used: DermaBlade Hemostasis achieved with: electrodesiccation Outcome: patient tolerated procedure well Post-procedure details: wound care instructions given Specimen B - Tissue exam Differential Diagnosis: BLK vs SCC Check Margins: No Biopsy recommended. Patient expresses understanding and is in agreement with the plan. Biopsy (x2) obtained today. Patient educated that we will call with the biopsy results within 2 weeks. Care instructions reviewed and written instructions provided to patient. 2. Actinic keratoses (5) Left Parotid Area, Left Zygomatic Area, Right Parotid Area, Right Mu-Ism, Right Wrist - Posterior [place] scaly macule(s) Patient educated on actinic keratosis and the possibility of transformation into SCC. Treatment options are discussed with risks and benefits reviewed. Cryotherapy is agreed upon and performed. Reassured that redness, swelling and the formation of a blister at the site of cryotherapy are possible reactions. After care instructions are given and reviewed. Patient to apply Vaseline to treated sites while healing. Patient to monitor for resolution. If unresolved after 2-3 months, patient to return for further evaluation and management Cryotherapy Actinic Keratosis: Medical Necessity: It was explained to the patient that actinic keratoses are precancerous. Consent: The patient understood all the risks and benefits prior to treatment. The risks explained included scarring, hyper and/or hypopigmentation. Although this treatment is highly effective, recurrences do occur and this was explained to the patient. The patient further understood that these lesions are precancerous and may develop into a malignancy. Site: 5=R wrist x1, L cheek x2, R cheek x2 Method: Liquid nitrogen was used to treat the lesion(s) with two freeze-thaw cycles. Post-op: The patient was instructed to clean the site normally twice a day. Signs of infection were reviewed and patient was instructed to call if he/ she develops increasing pain, purulent drainage, or beefy redness. The patient was informed that a blister may occur at the cryo site and that this is an expected event. Sun protection was reviewed and patient advised to use sunscreen with SPF 30 or greater on exposed skin when outdoors. Post-op instructions were given orally and in writing. Cryotherapy, skin lesion - Left Parotid Area, Left Zygomatic Area, Right Parotid Area, Right Mu-Ism, Right Wrist - Posterior 3. Multiple benign nevi Scattered uniform brown macules No treatment is needed for the benign appearing and asymptomatic lesions described above. The ABCDE (Asymmetry, Border, Color, Diameter, Evolution/Change) criteria used to evaluate pigmented lesions were reviewed with the patient. Patient educated on the proper use of sunscreen, SPF 30 or greater, and how often to reapply. Try to limit sun exposure to line tender or late evening hours. Patient advised to perform self-skin checks and call for follow up appointment if any new or concerning lesions detected. 4. Seborrheic keratosis (2) Generalized, Right Buccal Cheek [place]-brown waxy papule(s) and plaque(s) Reassured that this is a benign lesion and does not require any treatment. Educated that if the lesion changes color, becomes larger, bleeds, becomes bothersome or painful then it should be reevaluated. Patient expresses understanding and is agreeable to plan. 5. Solar lentigo Light brown well-circumscribed macule(s) Educated and reassured, benign finding secondary to sun exposure. Patient educated on the proper use of sunscreen, SPF, and how often to reapply. Recommend use of OTC mineral sun block, like Neutrogena or [place]. Patient advised to look for zinc or titanium as the active ingredient(s). Try to limit sun exposure to line tender or late evening hours. Patient advised to perform self-skin checks and call for follow up appointment if any new or concerning lesions detected. 6. History of melanoma No evidence of recurrence on exam today. Patient advised to perform monthly skin exams; checking the skin for any new or changing lesions. Any lesions that are new, elevated, firm and/or growing should be evaluated in our office. Also look for ABCDEs of Melanoma (warning signs): Asymmetry- the appearance of one side of the mole doesn't look like the other side. Borders- the borders of the mole are jagged, notched or smeared. Color- there are multiple colors in the mole, or it has changed colors. It can become darker, red or even lose pigment. Diameter- diameter greater than 6mm or the size of a pencil eraser. Evolution- Any change or evolving in size, shape or color of a mole. Also, any new symptom like bleeding, pain or itching may be a warning sign. 7. History of nonmelanoma skin cancer No evidence of recurrence on exam today. Educated on signs of skin cancer, skin cancer causes, prevention, and risk of developing skin cancers in the future. Sun protection measures reviewed, recommended monthly self skin exams and annual full skin exam. 8. History of atypical nevus No evidence of recurrence on exam today. Educated on etiology and signs of atypical nevi, treatment, risk of malignant transformation, and importance of sun protection. Signs of skin cancer/ABCDE's of melanoma reviewed. Recommended monthly self skin exams and annual full skin exams. I spent a total of 30 minutes on the day of the visit. [x]Preparing to see the patient [x]Obtaining/reviewing separately obtained history [x]Performing exam/evaluation [x]Counseling patient/family/caregiver [x]Ordering medication/tests/procedures []Referring and communicating with other health professionals [x]Documenting clinical information in the EMR []Independently interpreting results and communicating results to patient/family/caregiver []Care coordination Follow up in about 6 months (around 05/20/2024) for *SYED w/. Lora Santiago MD 11/18/23 7:19 AM REFERRING MD: No referring provider defined for this encounter. documented in this encounter [facility] 11-18-2023 Instructions Denise Melendez MA - 11/18/2023 11:45 AM EDT BIOPSY / SURGICAL AFTERCARE 1. If a dressing is in place, please leave it for 24 hours unless given other instructions. 2. After that time, remove the initial bandage, and cleanse the area with a mild, fragrance free soap such as Dove, Cetaphil, or CeraVe. 3. Apply Vaseline to the area and cover with a new bandage. Please do not use Neosporin, Polysporin, or Bacitracin, as these may cause unwanted allergic reactions in some patients, and are not necessary for good healing. 4. Repeat the above steps every day for 7 days unless otherwise directed by physician or nurse. 5. If any bleeding occurs, use a clean cotton or gauze, apply firm, direct pressure to the area for 10 to 15 minutes. If the bleeding does not stop, call our office at [phone]. 6. The wound should improve daily. If you notice any increased redness, swelling, drainage, warmth, or pain in the area, please notify our office. Please be advised that it can take up to 2 weeks for these sites to heal. In some patients it may take even longer depending on location (lower legs / feet) and / or if the patient has history of diabetes. Our office will notify you of the results in about 2 weeks. documented in this encounter [facility] 11-10-2023 History of Present illness Narrative [facility] Telephonic Outreach Provider Action/FYI Overall doing the same Struggles a little with allergies this time of year Stays in the house as needed-too warm, too much pollen Very nice lady Active, exercises, plays golf No concerns Contacted for: Routine Telephonic Outreach Contact made with patient: Yes Patient identified by name and date of . Discussed care with patient Are you experiencing any new or worsening symptoms you need to talk about today? No Disease Specific Do you check your blood pressure at home? No Do you have new or worsening shortness of breath with activity? No Based on glass block bender, the following disposition is advised: No symptoms or symptoms present, not severe. Routed to: No Action Needed LEE Education Provided this Outreach: No Sergei Lauren RN November 10, 2023 3:38 PM documented in this encounter [facility] 10-27-2023 Instructions Tee Montgomery PA-C - 10/27/2023 9:49 AM EDT Try Tegaderm or Opsite IV dressing over skin tear If not able to get them, use bacitracin and non-stick dressing. Continue thumb brace. documented in this encounter [facility] 10-27-2023 History of Present illness Narrative 88 year old female with c/o 4 week follow up HTN: Current meds: HCTZ 12.5mg daily Lisinopril 20mg daily Patient is compliant with meds Yes Monitors bp at home: No. If yes, readings: Denies side effects: No. Chest pain: No. Dyspnea: No. Edema: No. Palpitations: No. Syncope: No. Headache: No. Dizziness: No. Last 3 Encounter BP Readings: Date: BP: 10/27/2023 128/72 10/17/2023 130/72 09/25/2023 138/80 Last 2 Encounter Wt Readings: Date: Wt: 10/27/2023 71.6 kg (157 lb 12.8 oz) 10/17/2023 72.6 kg (160 lb 0.9 oz) Has skin tear left elbow. Covered with tripple antibiotic and telfa. Tore on handle on stationarybike DT up to date [facility] with right wrist injury: too much use of mouse on computer, doing curls with 8lb weight, lifted a heavybox from refrigerator 10/17/2023 XR right hand: no fracture Has been resting and using wrist-thumb splint and improving Wants to improve for golfing HISTORIES FAMILY HISTORY Problem Relation Age of Onset Alzheimer's Disease Mother Arthritis Father Stroke Father Breast Cancer Maternal Aunt other (lung cancer) Maternal Aunt Prostate Cancer Son Stroke Other Fatal. Brother in law. PAST MEDICAL HISTORY Diagnosis Date Aortic sclerosis 2012 Found on echo Arthritis of foot Bilateral heel spurs. 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 PAST SURGICAL HISTORY Procedure Laterality Date ARTHROPLASTY GLENOHUMRL JT HEMIARTHROPLASTY Left 03/2022 Arthroplasty, shoulder BREAST LUMPECTOMY HX Right 09/13/2021 U/S guided open right breast lumpectomy COLONOSCOPY FLX DX W/COLLJ SPEC WHEN PFRMD 03/26/2007 Colonoscopy DILATION & CURETTAGE DX&/THER NONOBSTETRIC Dilation & curettage LAPAROSCOPY SURG CHOLECYSTECTOMY 1979 Cholecystectomy, lap SKIN BIOPSY HX Social History Tobacco Use Smoking status: Former Packs/day: 1.30 Years: 32.00 Additional pack years: 0.00 Total pack years: 41.60 Types: Cigarettes Start date: 03/10/1955 Quit date: 07/14/1986 Years since quittin.3 Smokeless tobacco: Never Tobacco comments: Parents did not smoke in childhood home. Spouse non smoker. Vaping Use Vaping Use: Never used Substance Use Topics Alcohol use: Yes Comment: Occasional. 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 90 tablet 1 solifenacin 10 mg tablet Take 0.5 tablets by mouth once daily. 45 tablet 5 hydroCHLOROthiazide 12.5 mg capsule Take 1 capsule by mouth once daily. 30 capsule 12 lisinopril (ZESTRIL) 20 mg tablet Take 1 tablet by mouth once daily. 90 tablet 1 atorvastatin (LIPITOR) 20 mg tablet TAKE 1 TABLET DAILY AT BEDTIME FOR CHOLESTEROL 90 tablet 3 budesonide-formoterol (SYMBICORT) 160-4.5 mcg/actuation inhaler Inhale 2 Puffs as instructed twice daily. 3 Each 3 melatonin 10 mg cap Take 10 mg by mouth. ESOMEPRAZOLE MAGNESIUM (NEXIUM 24HR ORAL) Take by mouth. No current facility-administered medications for this visit. Behavioral Health Screening Never done EXAM: BP 128/72 (BP Site: Right Arm, BP Position: Sitting, BP Cuff Size: Regular Adult) Pulse 82 Resp 18 Wt 71.6 kg (157 lb 12.8 oz) BMI 27.95 kg/m Pleasant well appearing older woman in no acute distress. Alert and oriented all spheres. Normal affect and cognition. Speech normal. No deficits to learning or comprehension. Skin warm, dry, pink to lips and nailbeds. Normal turgor. Respirations regular and unlabored. Chest is normal shape. Lungs are clear to all paul with good air exchange through out. HRRR without murmur or gallop. No lifts, heaves, or rubs. Extrem: no clubbing or cyanosis. Edema: none. Extremities are warm and pink with prompt capillary refill. Pain without swelling in right thumb, tender dorsal base of the thumb along extensor tendon without crepitus on movement. No pain with wrist movement LFA skin tear with telfa dressing and Coban which appears to be healing with flattening fragment of adherent. ASSESSMENT/PLAN: 1. Essential hypertension, benign - ICD9: 401.1, ICD10: I10 - Controlled - Continue current medications - Recommend home blood pressure monitoring, to bring results to next visit - Encouraged sodium restriction, DASH or Mediterranean diet - Recommend regular aerobic exercise - BEHAVIORAL HEALTH SCREENING 2. Skin tear of left elbow without complication, subsequent encounter - ICD9: V58.89, 881.01, ICD10: S51.012D Monitor for infection, f/u as needed 3. Thumb tendonitis - ICD9: 727.05, ICD10: M77.8 Continue splinting up to 4 weeks with progressive splint free activity as tolerated. If not improving by 4 weeks, follow up here. 4. Simple chronic bronchitis (HCC) - ICD9: 491.0, ICD10: J41.0 Controlled with Breyna: continue medication Some of this note may have been copied and pasted for the purpose of history context and comparison and has been adjusted for changes in prior data. Tee Montgomery PA-C documented in this encounter [facility] 10-17-2023 Instructions Allyson Santos APRN.STUDY LEAD - 10/17/2023 12:03 PM EDT ASSESSMENT/PLAN: 1. Right hand pain - ICD9: 729.5, ICD10: M79.641 - XR HAND GENERAL 3V PA/LAT/OBL RIGHT RESULT: Generalized osteopenia. No acute fracture or dislocation. Triscaphe joint space narrowing with subchondral sclerosis. Right first carpometacarpal joint space narrowing with subchondral sclerosis and marginal osteophytes. Narrowing of the second and third metacarpophalangeal joints. Narrowing of multiple interphalangeal joints with marginal osteophytes. IMPRESSION: No acute fracture. Degenerative disease of the right hand. Adult High School Instructor: ANDRZEJ Transcribe Date/Time: Oct 17 2023 11:53A Dictated by : JOSIANE BRIGGS MD - RICE therapy as directed. - hand with thumb splint from vendor supply applied to right hand/thumb. - Follow-up with your PCP in 5-7 days if symptoms have not improved or sooner if symptoms worsen - Discussed red flags and need for immediate medical evaluation if any occur. - Discussed supportive care treatment with fluids, rest and analgesia. - Discussed expected course of illness Allyson Santos APRN.STUDY LEAD R.I.C.E. The general care of your injury includes the following: Resting, Icing, Compressing and Elevating the injured area. Remember this as RICE. REST: Limit the use of the injured body part. ICE: By applying ice to the affected area, swelling and pain can be reduced. Place some ice cubes in a re-sealable (Ziploc) bag and add some water. Put a thin washcloth between the bag and your skin. Apply the ice bag to the area for at least 20 minutes. Do this at least 4 times per day. Using the ice for longer times and more frequently is OK. NEVER APPLY ICE DIRECTLY TO THE SKIN. COMPRESS: Compression means to apply pressure around the injured area such as with a splint, cast or an parvin bandage. Compression decreases swelling and improves comfort. Compression should be tight enough to relieve swelling but not so tight as to decrease circulation. Increasing pain, numbness, tingling, or change in skin color, are all signs of decreased circulation. ELEVATE: Elevate the injured part. For example, elevate your foot by placing it on a chair while sitting, or propping it up on pillows when lying down. documented in this encounter [facility] 10-17-2023 History of Present illness Narrative Radiology Service Progress Note PATIENT NAME: Marshall Wu DATE OF SERVICE: October 17, 2023 TIME: 11:33 AM PATIENT IDENTITY VERIFICATION COMPLETED USING TWO (2) IDENTIFIERS: Name and Date of confirmed by patient verbally. FALL SCREENING: Has the patient had 2 falls in the last year or 1 fall with injury or currently using an Ambulatory Assistive Device (Walker, Cane, Wheelchair, Crutches, etc.)? No PATIENT GENDER DATA: Female. status: : No status: NO. PATIENT RELEVANT IMPLANT DATA REVIEWED: Not Applicable PATIENT PRESENTS WITH AN IMPLANTABLE OR ATTACHED STRANDING MACHINE OPERATOR HELPER: No RADIOLOGY DEPARTMENT: General X-ray: Exam(s) Completed: Upper Extremity X-Ray(s): Hand, right PERIPHERAL IV DATA: Not applicable SIGNED BY: RT Dylan(R) October 17, 2023 11:33 AM documented in this encounter [facility] 10-17-2023 History of Present illness Narrative Images from the original note were not included. Subjective Musculoskeletal Problem Pertinent negatives include no chills, fever, rash or weakness. Marshall Wu is a 88 year old female who presents with right hand pain. She was pulling a box out of the freezer last night and felt a pop in her right hand. Since then she has had pain and swelling. Pain mostly occurs with movement and rates 10/10 when this happens. She has not taken chris medications today. Review of Systems Constitutional: Negative for chills and fever. Musculoskeletal: Positive for joint pain. Negative for falls. Skin: Negative for itching and rash. Neurological: Negative for tingling, sensory change and weakness. BP 130/72 Pulse 88 Temp 36.8 C (98.2 F) Resp 16 Wt 72.6 kg (160 lb 0.9 oz) SpO2 98% BMI 28.35 kg/m PAST MEDICAL HISTORY Diagnosis Date Aortic sclerosis 2012 Found on echo Arthritis of foot Bilateral heel spurs. 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 solifenacin 10 mg tablet Take 0.5 tablets by mouth once daily. hydroCHLOROthiazide 12.5 mg capsule Take 1 capsule by mouth once daily. lisinopril (ZESTRIL) 20 mg tablet Take 1 tablet by mouth once daily. atorvastatin (LIPITOR) 20 mg tablet TAKE 1 TABLET DAILY AT BEDTIME FOR CHOLESTEROL budesonide-formoterol (SYMBICORT) 160-4.5 mcg/actuation inhaler Inhale 2 Puffs as instructed twice daily. melatonin 10 mg cap Take 10 mg by mouth. ESOMEPRAZOLE MAGNESIUM (NEXIUM 24HR ORAL) Take by mouth. FAMILY HISTORY Problem Relation Age of Onset Alzheimer's Disease Mother Arthritis Father Stroke Father Breast Cancer Maternal Aunt other (lung cancer) Maternal Aunt Prostate Cancer Son Stroke Other Fatal. Brother in law. Social History Tobacco Use Smoking status: Former Packs/day: 1.30 Years: 32.00 Additional pack years: 0.00 Total pack years: 41.60 Types: Cigarettes Start date: 03/10/1955 Quit date: 07/14/1986 Years since quittin.2 Smokeless tobacco: Never Tobacco comments: Parents did not smoke in childhood home. Spouse non smoker. Vaping Use Vaping Use: Never used Substance Use Topics Alcohol use: Yes Comment: Occasional. Drug use: No Objective Physical Exam Vitals and nursing note reviewed. Constitutional: Appearance: Normal appearance. Musculoskeletal: General: Swelling and tenderness present. No deformity. Right hand: Swelling and tenderness present. No deformity or bony tenderness. Normal range of motion. Normal strength. Normal sensation. There is no disruption of two-point discrimination. Normal capillary refill. Normal pulse. Hands: Skin: General: Skin is warm and dry. Capillary Refill: Capillary refill takes less than 2 seconds. Findings: No bruising, erythema or rash. Neurological: Mental Status: She is alert. ASSESSMENT/PLAN: 1. Right hand pain - ICD9: 729.5, ICD10: M79.641 - XR HAND GENERAL 3V PA/LAT/OBL RIGHT RESULT: Generalized osteopenia. No acute fracture or dislocation. Triscaphe joint space narrowing with subchondral sclerosis. Right first carpometacarpal joint space narrowing with subchondral sclerosis and marginal osteophytes. Narrowing of the second and third metacarpophalangeal joints. Narrowing of multiple interphalangeal joints with marginal osteophytes. IMPRESSION: No acute fracture. Degenerative disease of the right hand. Adult High School Instructor: ANDRZEJ Transcribe Date/Time: Oct 17 2023 11:53A Dictated by : JOSIANE BRIGGS MD - RICE therapy as directed. - hand with thumb splint from vendor supply applied to right hand/thumb. - Follow-up with your PCP in 5-7 days if symptoms have not improved or sooner if symptoms worsen - Discussed red flags and need for immediate medical evaluation if any occur. - Discussed supportive care treatment with fluids, rest and analgesia. - Discussed expected course of illness Allyson Santos APRN.STUDY LEAD documented in this encounter [facility] 10-16-2023 Miscellaneous Notes She does not need any additional orders. She has outstanding orders which activate 01/19/2024 but also has appt same day. I will change them to 01/12/2024 ThanksJeramie PA-C documented in this encounter [facility] 09-25-2023 Instructions Tee Montgomery PA-C - 09/25/2023 3:45 PM EDT Hydrochlorothiazide Printed on May 01, 2012 Pronunciation (klever droe klor oh THYE a zide) Brand Names: [place] Microzide Brand Names: [place] Apo-[place] ; Bio-Hydrochlorothiazide; Dom-Hydrochlorothiazide; Shakeel-Hydrazide; Nu-Math[place]; PMS-Hydrochlorothiazide What em warnings do I need to know about before using this drug? Sometimes drugs are not safe when you take them with certain other drugs. Taking them together can cause bad side effects. This is one of those drugs. Be sure to talk to your doctor about all the drugs you take. When is it not safe to use this drug? If you have an allergy to hydrochlorothiazide or any other part of this drug. Tell your doctor if you are allergic to any drugs. Make sure to tell about the allergy and what signs you had. This includes telling about rash; hives; itching; shortness of breath; wheezing; cough; swelling of face, lips, tongue, or throat; or any other signs. If you have a sulfa (sulfonamide) allergy, talk with your doctor. If you have kidney disease. If you are or may be . What is this drug used for? It is used to treat high blood pressure. It is used to get rid of extra fluid. How does this drug work? Hydrochlorothiazide (HCTZ) lowers blood pressure and gets rid of extra salt and water in the body. How is this drug best taken? Take as you have been told, even if you are feeling better. Take with or without food. Take with food if it causes an upset stomach. Take early in the day to keep from having sleep problems. Follow the diet and workout plan that your doctor told you about. What do I do if I miss a dose? (does not apply to patients in the hospital) Take a missed dose as soon as you think about it. If it is close to the time for your next dose, skip the missed dose and go back to your normal time. Do not take 2 doses at the same time or extra doses. Do not change the dose or stop this drug. Talk with the doctor. Are there any precautions when using this drug? Do not run out of this drug. If you have high blood sugar (diabetes), this drug may sometimes raise blood sugar. Talk with your doctor about how to fine tune this. If you have liver disease, talk with your doctor. Have your blood work checked. Talk with your doctor. Check all drugs you are taking with your doctor. This drug may not mix well with some other drugs. Keep a list of all your drugs (prescription, natural products, vitamins, OTC) with you. Give this list to your doctor. If you are taking this drug and have high blood pressure, talk with your doctor before using OTC products that may raise blood pressure. These include cough or cold drugs, diet pills, stimulants, ibuprofen or like products, and some natural products or aids. Avoid beer, wine, or mixed drinks. You may get sunburned more easily. Avoid sun, sunlamps, and tanning beds. Use sunscreen and wear clothing and eyewear that protects you from the sun. Watch for gout attacks. Tell your doctor if you are breast-feeding. What are some side effects of this drug? Low potassium levels. Signs include feeling tired, weak, numbness, or tingling; muscle cramps; hard stools (constipation); throwing up; or a fast heartbeat. Feeling dizzy. Rise slowly over a few minutes when sitting or lying down. Be careful climbing. Upset stomach or throwing up. Many small meals, good mouth care, sucking hard, sugar-free candy, or chewing sugar-free gum may help. Dry mouth. Good mouth care, sucking hard, sugar-free candy, or chewing sugar-free gum may help. See a dentist often. When do I need to call my doctor? If you think there was an overdose, call your local poison control center or ER right away. Signs of a very bad reaction to the drug. These include wheezing; chest tightness; fever; itching; bad cough; blue or leal skin color; seizures; or swelling of face, lips, tongue, or throat. Signs of low potassium. Very bad dizziness or passing out. Very upset stomach or throwing up. Not able to pass urine. Sudden change in eyesight, eye pain, or irritation. Any rash. Side effect or health problem is not better or you are feeling worse. How do I store and/or throw out this drug? Store at room temperature. Protect from light. Protect from water. Do not store in a bathroom or kitchen. General drug facts If you have a very bad allergy, wear an allergy ID at all times. Do not share your drugs with others and do not take anyone else's drugs. Keep all drugs out of the reach of children and pets. Most drugs may be thrown away in household trash after mixing with coffee grounds or estela litter and sealing in a plastic bag. In [place], take any unused drugs to the pharmacy. Also, visit http://www.-sc..ca/hl-vs/iyh-vsv/m ed/rjbgvdjs-cgyagqc-clm.php#th to learn about the right way to get rid of unused drugs. Keep a list of all your drugs (prescription, natural products, vitamins, OTC) with you. Give this list to your doctor. Call your doctor for help with any side effects. If in the [place] you may also call the FDA at 1-255-WWG-9191 or if in [place], you may also call [employer]'s Vigilance Program at . Talk with the doctor before starting any new drug, including OTC, natural products, or vitamins. documented in this encounter [facility] 09-25-2023 History of Present illness Narrative 88 year old female with c/o worsening acid reflux, swelling bilaterar lower legs. R>L Reflux has gotten a lot worse in last 2-3 weeks. No change in diet, Taking Nexium 2 instead of one. Bowels variable, loose stool one day, nothing for 2 days. Doesn't feel bloated of discomfort. Feels tired all the time. Maybe a little more SOB No cough No chest pain No orthopnea or PND No syncopal sx Chronic numbness in hands 4 05/13/2023 06/02/2023 07/21/2023 09/25/2023 Vitals WEIGHT in POUNDS 155 lb 152 lb 161 lb 157 lb WEIGHT in KILOGRAMS 70.308 kg 68.947 kg 73.029 kg 71.215 kg Latest Ref Rng 12/03/2018 03/01/2019 02/02/2020 02/28/2020 01/27/2021 11/22/2022 02/10/2023 07/17/2023 Protein, Total 6.3 - 8.0 g/dL 6.5 5.6 (L) 6.6 Albumin 3.9 - 4.9 g/dL 4.1 4.1 4.0 Calcium 8.5 - 10.2 mg/dL 9.5 9.4 9.4 9.4 9.0 9.2 Bilirubin, Total 0.2 - 1.3 mg/dL 0.6 0.6 0.6 Alkaline Phosphatase 34 - 123 U/L 93 103 131 (H) AST 13 - 35 U/L 17 19 16 Glucose 74 - 99 mg/dL 99 94 115 (H) 92 97 108 (H) BUN 7 - 21 mg/dL 12 14 15 17 15 18 Creatinine 0.58 - 0.96 mg/dL 0.88 0.69 0.69 0.66 0.69 0.77 Sodium 136 - 144 mmol/L 141 142 143 138 140 139 Potassium 3.7 - 5.1 mmol/L 3.9 3.6 (L) 3.9 4.2 3.7 4.2 Chloride 97 - 105 mmol/L 101 102 103 101 103 104 CO2 22 - 30 mmol/L 26 30 30 26 29 31 (H) Anion Gap 9 - 18 mmol/L 14 10 10 11 8 (L) 4 (L) ALT 7 - 38 U/L 12 15 11 eGFR- >60 >60 >60 >60 eGFR-All Other Races . 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 Further electrodiagnostic examination of the upper extremities may be helpful in further evaluation. HISTORIES FAMILY HISTORY Problem Relation Age of Onset Alzheimer's Disease Mother Arthritis Father Stroke Father Breast Cancer Maternal Aunt other (lung cancer) Maternal Aunt Prostate Cancer Son Stroke Other Fatal. Brother in law. PAST MEDICAL HISTORY Diagnosis Date Aortic sclerosis 2012 Found on echo Arthritis of foot Bilateral heel spurs. 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 PAST SURGICAL HISTORY Procedure Laterality Date ARTHROPLASTY GLENOHUMRL JT HEMIARTHROPLASTY Left 03/2022 Arthroplasty, shoulder BREAST LUMPECTOMY HX Right 09/13/2021 U/S guided open right breast lumpectomy COLONOSCOPY FLX DX W/COLLJ SPEC WHEN PFRMD 03/26/2007 Colonoscopy DILATION & CURETTAGE DX&/THER NONOBSTETRIC Dilation & curettage LAPAROSCOPY SURG CHOLECYSTECTOMY 1979 Cholecystectomy, lap SKIN BIOPSY HX Social History Tobacco Use Smoking status: Former Packs/day: 1.30 Years: 32.00 Additional pack years: 0.00 Total pack years: 41.60 Types: Cigarettes Start date: 03/10/1955 Quit date: 07/14/1986 Years since quittin.2 Smokeless tobacco: Never Tobacco comments: Parents did not smoke in childhood home. Spouse non smoker. Vaping Use Vaping Use: Never used Substance Use Topics Alcohol use: Yes Comment: Occasional. 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 90 tablet 1 solifenacin 10 mg tablet Take 0.5 tablets by mouth once daily. 30 tablet 2 rOPINIRole (REQUIP) 1 mg tablet Take 1 tablet by mouth daily at bedtime. 90 tablet 1 amLODIPine (NORVASC) 5 mg tablet Take 1 tablet by mouth once daily. 90 tablet 1 atorvastatin (LIPITOR) 20 mg tablet TAKE 1 TABLET DAILY AT BEDTIME FOR CHOLESTEROL 90 tablet 3 budesonide-formoterol (SYMBICORT) 160-4.5 mcg/actuation inhaler Inhale 2 Puffs as instructed twice daily. 3 Each 3 melatonin 10 mg cap Take 10 mg by mouth. ESOMEPRAZOLE MAGNESIUM (NEXIUM 24HR ORAL) Take by mouth. tiZANidine HCl (ZANAFLEX) 2 mg capsule Take 1 capsule by mouth three times a day as needed (1-2 tabs as tolerated every 8 hours for pain). 30 capsule 0 No current facility-administered medications for this visit. Depression Assessment Never done EXAM: BP 138/80 Pulse 95 Resp 16 Wt 71.2 kg (157 lb) SpO2 97% BMI 27.81 kg/m Pleasant adult woman in no acute distress. Alert and oriented all spheres. Normal affect and cognition. Speech normal. No deficits to learning or comprehension. Skin warm, dry, pink to lips and nailbeds. Normal turgor. Respirations regular and unlabored. HEENT: NCAT. No scleral icterus or conjunctival injection. TM's clear. Nose and oropharynx free from injection or lesion. Oral membranes moist and pink. No cervical lymph nodes. Thyroid non-tender, no masses, or enlargement. Carotids pulses 2+/4+ without bruits. No JVD with HOB at 30 degrees. Abdomen: active bowel sounds throughout, soft, nontender, no masses or organomegaly. No CVAT. Extrem: no clubbing or cyanosis. Edema: none. Extremities are warm and pink with prompt capillary refill. ASSESSMENT/PLAN: 1. Restless leg - ICD9: 333.94, ICD10: G25.81 (primary diagnosis) Wants to have [facility] neuro management - ROPINIROLE 1 MG TABLET - CONSULT TO NEUROLOGY 2. Essential hypertension, benign - ICD9: 401.1, ICD10: I10 - Controlled - Continue current medications - Recommend home blood pressure monitoring, to bring results to next visit - Encouraged sodium restriction, DASH or Mediterranean diet - Recommend regular aerobic exercise 3. Neuropathy of both feet - ICD9: 356.9, ICD10: G57.93 - CBC + DIFF - COMP METABOLIC PANEL - TSH BLD - CONSULT TO NEUROLOGY - PROTEIN ELECT RND UR W/INTERP - PROTEIN ELECTROPHORESIS SERUM W/INTERP 4. Bilateral leg edema - ICD9: 782.3, ICD10: R60.0 No evidence for CHF, possible stasis edema - CBC + DIFF - COMP METABOLIC PANEL - TSH BLD - NT PRO BNP 5. Shortness of breath - ICD9: 786.05, ICD10: R06.02 - NT PRO BNP 6. Overflow incontinence - ICD9: 788.38, ICD10: N39.490 Improved on medication: continue - SOLIFENACIN 10 MG TABLET F/U when labs are available. Some of this note may have been copied and pasted for the purpose of history context and comparison and has been adjusted for changes in prior data. Tee Montgomery PA-C documented in this encounter [facility] 09-25-2023 Miscellaneous Notes TC to patient & scheduled with PCP today 09/24 3:20 PM. Gretchen Thornton MA documented in this encounter [facility] 06-02-2023 History of Present illness Narrative Images from the original note were not included. . Respiratory [place] Note Patient name: Marshall Wu PCP: Tee Montgomery PA-C CC: Sick visit, cough HPI: Marshall Wu 88 year old female former 87-seaf-oxde smoker having quit in 1986 with PMH significant for mild COPD, aortic stenosis, HTN, GERD, HLD, melanoma, breast cancer presenting for acute visit. Current therapy for her COPD consists of Symbicort. Does not have rescue inhaler, doesn't believe she needs it. She was doing well until three weeks ago when she developed a typical URI. Ill contact via daughter and granddaughter. Cough, chest congestion, sputum clear to yellow. No fevers or chills, no wheezes but SOB. Seen in urgent care, treated with 7 day course of antibiotics and steroids. Cough is now dry, persistent throughout the day. Worse when talking or trying to exercise. She feels SOB. Cough does not interfere with her sleep. Using Mucinex and her Symbicort. PAST MEDICAL HISTORY Diagnosis Date Aortic sclerosis 2012 Found on echo Arthritis of foot Bilateral heel spurs. 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 guaiFENesin (MUCINEX) 600 mg 12 hr tablet Take 1 tablet by mouth two times a day as needed for cold/allergy symptoms (cough). rOPINIRole (REQUIP) 1 mg tablet Take 1 tablet by mouth daily at bedtime. amLODIPine (NORVASC) 5 mg tablet Take 1 tablet by mouth once daily. atorvastatin (LIPITOR) 20 mg tablet TAKE 1 TABLET DAILY AT BEDTIME FOR CHOLESTEROL lisinopril (ZESTRIL) 20 mg tablet Take 1 tablet by mouth once daily. budesonide-formoterol (SYMBICORT) 160-4.5 mcg/actuation inhaler Inhale 2 Puffs as instructed twice daily. melatonin 10 mg cap Take 10 mg by mouth. ESOMEPRAZOLE MAGNESIUM (NEXIUM 24HR ORAL) Take by mouth. Social History Tobacco Use Smoking status: Former Packs/day: 1.30 Years: 32.00 Additional pack years: 0.00 Total pack years: 41.60 Types: Cigarettes Start date: 03/10/1955 Quit date: 07/14/1986 Years since quittin.9 Smokeless tobacco: Never Tobacco comments: Parents did not smoke in childhood home. Spouse non smoker. Vaping Use Vaping Use: Never used Substance Use Topics Alcohol use: Yes Comment: Occasional. Drug use: No FAMILY HISTORY Problem Relation Age of Onset Alzheimer's Disease Mother Arthritis Father Stroke Father Breast Cancer Maternal Aunt other (lung cancer) Maternal Aunt Prostate Cancer Son Stroke Other Fatal. Brother in law. PAST SURGICAL HISTORY Procedure Laterality Date ARTHROPLASTY GLENOHUMRL JT HEMIARTHROPLASTY Left 03/2022 Arthroplasty, shoulder BREAST LUMPECTOMY HX Right 09/13/2021 U/S guided open right breast lumpectomy COLONOSCOPY FLX DX W/COLLJ SPEC WHEN PFRMD 03/26/2007 Colonoscopy DILATION & CURETTAGE DX&/THER NONOBSTETRIC Dilation & curettage LAPAROSCOPY SURG CHOLECYSTECTOMY 1979 Cholecystectomy, lap SKIN BIOPSY HX PMH, Social history, family history and surgical history reviewed and updated in EMR REVIEW OF SYSTEMS: CONSTITUTIONAL: No fevers, chills, nightsweats, unintended weight loss HEENT: Denies nasal congestion/sinus symptoms, sore throat CARDIOVASCULAR: No chest pain, palpitations, edema. PULM: See HPI GI: No diarrhea, nausea or vomiting INTEGUMENTARY: No rashes PHYSICAL EXAMINATION: Wt 152 lb (68.9kg) BP 142/70, P 63, RR 15, SpO2 99% General Appearance: Age appropriate, NAD. Frequent dry cough. Skin: Skin color, texture, turgor normal, no suspicious rashes or lesions. Head: Normocephalic, no masses, lesions, tenderness or abnormalities.. Oropharynx: No oral lesions or erythema. Neck: No JVD, no masses, no adenopathy. Lungs: Not labored, normal to percussion, no wheezes or crackles. Heart: RRR, no murmur Ext: No edema. Assessment/Plan: URI -No need for further antibiotics Subacute cough -Will take time to resolve. URI in community with cough that is lasting 6-8 weeks -Offered Héctor craft but patient declining at this time -Longer course of steroids COPD, mild -Continue Symbicort. Should have a rescue inhaler available Angelika Chavez MD Respiratory [place] documented in this encounter [facility] 06-02-2023 Miscellaneous Notes Appt scheduled. Jacy Damon LPN documented in this encounter [facility] 05-19-2023 Miscellaneous Notes See update from pt. Pt seen in on 05/13/23. Augusta Mcgrath Ma documented in this encounter [facility] 05-13-2023 Miscellaneous Notes Patient notified.Dorothy Chapman LPN No acute findings noted on chest x-ray. Continue plan of care as discussed. Follow-up with PCP 3 to 5 days symptoms are not improving. Suhas Rivera APRN.STUDY LEAD documented in this encounter [facility] 05-13-2023 History of Present illness Narrative Radiology Service Progress Note PATIENT NAME: Marshall Wu DATE OF SERVICE: May 13, 2023 TIME: 12:01 PM PATIENT IDENTITY VERIFICATION COMPLETED USING TWO (2) IDENTIFIERS: Name and Date of confirmed by patient verbally. FALL SCREENING: Has the patient had 2 falls in the last year or 1 fall with injury or currently using an Ambulatory Assistive Device (Walker, Cane, Wheelchair, Crutches, etc.)? No PATIENT GENDER DATA: Female. status: : No status: NO. PATIENT RELEVANT IMPLANT DATA REVIEWED: Not Applicable RADIOLOGY DEPARTMENT: General X-ray: Exam(s) Completed: Chest X-Ray PERIPHERAL IV DATA: Not applicable SIGNED BY: RT Dylan(R) May 13, 2023 12:01 PM documented in this encounter [facility] 05-13-2023 Instructions Suhas Rivera APRN.CNP - 05/13/2023 11:45 AM EDT How to Manage Common Symptoms Associated with COVID for Adults Fever- Fever is a temperature over 100.4 F and can occur when the body is fighting an infection. To help treat a fever: Drink plenty of fluids and stay well hydrated. Eat small amounts of easy to digest food. Rest. Your body needs rest to recover, but getting up and moving around the house frequently is a good idea. You should try to continue doing your normal daily activities (bathing, toileting, grooming, cooking), though you will probably feel tired, and need to rest often. Avoid any heavy activity or exercise, as this will increase your body temperature. Dress in light clothing and stay covered in a light sheet. Keep the room temperature cool. Take a slightly warm (not cold or cool) bath, or apply damp washcloths to the forehead and wrists. Cough- Cough is a common symptom associated with COVID and can be bothersome. To help treat a cough: Stay well hydrated. Try warm water or tea with lemon and/or honey to help soothe the cough. Use a humidifier to add moisture to the air. Try a product with menthol, like a cough drop or a rub for your chest such as Vicks, which can help reduce cough. Try cough drops. Avoid smoking and other strong odors or perfumes. Try breathing exercises to keep your lungs open and clear. Take a big deep breath through your nose and hold for 5 seconds before slowly releasing. Repeat frequently, while you are awake. Congestion- Runny nose or nasal congestion can occur with COVID. Treatment can help relieve symptoms: Try OTC nasal saline spray, or nasal saline rinse to relieve mucus congestion. Nasal strips can help keep nasal passages open, to increase airflow. Elevating your head with an extra pillow in bed can help reduce congestion. Using a humidifier can increase moisture in the air, and make breathing easier. Sore Throat- Another common symptom with COVID, can be managed at home by: Stay well hydrated. Gargle with salt water - mix teaspoon salt with 1 cup of warm water and gargle. This helps to loosen mucus in the back of the throat and may reduce discomfort. Try ice chips, popsicles or lozenges to soothe the throat. Nausea/Vomiting/Diarrhea- These are common symptoms, and staying hydrated is most important. If you are nauseous or vomiting, start with small sips of water every 10-15 minutes and increase as tolerated. You can try sucking an ice cube too. If tolerating, you can try pedialyte or Gatorade, or flat sprite or veronica-carlitos. Start slowly and increase as you are able to. Instead of meals, try smaller, more frequent snacks. Try eating bland foods like crackers, toast, rice, and applesauce. Avoid spicy, greasy or fried foods and dairy containing foods. Even if you aren't feeling hungry due to lack of smell or taste, it is important to try to take in some food when you are able. After drinking and eating, rest in an upright position for up to two hours as needed to help decrease nauseous feelings. Try closing your eyes, avoid moving and watching TV. Avoid strong odors that can make you feel more nauseated. When to seek emergency medical attention Look for emergency warning signs for COVID-19. If having any of these symptoms, seek emergency medical care immediately: Trouble breathing Persistent pain or pressure in the chest New confusion Inability to wake or stay awake Bluish lips or face *This list is not all possible symptoms. Please call your medical provider for any other symptoms that are severe or concerning to you. documented in this encounter [facility] 05-13-2023 History of Present illness Narrative Subjective HPI Nontoxic-appearing female presents urgent care chief complaint cough chest congestion. Duration of symptoms 4 days. Associated symptoms cough fatigue chest congestion shortness of breath with coughing. States daughter had similar signs and symptoms she was around her a few days prior to her starting. No OTC medications today. Did use Tamiflu yesterday and this helped some. No significant pain. Risk factors COPD. Feels like breathing has been worse recently. Denies any body aches chills productive cough chest pain hemoptysis nausea vomiting abdominal pain change in bowel or bladder habits. Past medical history prescription medication use allergies reviewed. .Patient presents with: Cough: Chest congestion, SOB, x 4 days PAST MEDICAL HISTORY Diagnosis Date Aortic sclerosis 2012 Found on echo Arthritis of foot Bilateral heel spurs. 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 amLODIPine (NORVASC) 5 mg tablet Take 1 tablet by mouth once daily. atorvastatin (LIPITOR) 20 mg tablet TAKE 1 TABLET DAILY AT BEDTIME FOR CHOLESTEROL lisinopril (ZESTRIL) 20 mg tablet Take 1 tablet by mouth once daily. budesonide-formoterol (SYMBICORT) 160-4.5 mcg/actuation inhaler Inhale 2 Puffs as instructed twice daily. melatonin 10 mg cap Take 10 mg by mouth. ESOMEPRAZOLE MAGNESIUM (NEXIUM 24HR ORAL) Take by mouth. FAMILY HISTORY Problem Relation Age of Onset Alzheimer's Disease Mother Arthritis Father Stroke Father Breast Cancer Maternal Aunt other (lung cancer) Maternal Aunt Prostate Cancer Son Stroke Other Fatal. Brother in law. Social History Tobacco Use Smoking status: Former Packs/day: 1.30 Years: 32.00 Additional pack years: 0.00 Total pack years: 41.60 Types: Cigarettes Start date: 03/10/1955 Quit date: 07/14/1986 Years since quittin.8 Smokeless tobacco: Never Tobacco comments: Parents did not smoke in childhood home. Spouse non smoker. Vaping Use Vaping Use: Never used Substance Use Topics Alcohol use: Yes Comment: Occasional. Drug use: No BP 152/80 Pulse 100 Temp 36.6 C (97.8 F) Resp 22 Wt 70.3 kg (155 lb) SpO2 96% BMI 27.46 kg/m Hr 85 Review of Systems Constitutional: Negative for chills, fever and malaise/fatigue. HENT: Positive for congestion. Negative for ear discharge, ear pain, sinus pain and sore throat. Eyes: Negative for blurred vision, pain, discharge and redness. Respiratory: Positive for cough. Negative for hemoptysis, sputum production, shortness of breath, wheezing and stridor. Cardiovascular: Negative for chest pain. Gastrointestinal: Negative for abdominal pain, diarrhea, nausea and vomiting. Musculoskeletal: Negative for myalgias. Skin: Negative for itching and rash. Neurological: Negative for dizziness and headaches. Objective Physical Exam Constitutional: General: She is not in acute distress. Appearance: She is not diaphoretic. HENT: Head: Normocephalic. Jaw: No trismus, tenderness, swelling or pain on movement. Mouth/Throat: Mouth: Mucous membranes are moist. Pharynx: Oropharynx is clear. Uvula midline. No pharyngeal swelling, oropharyngeal exudate, posterior oropharyngeal erythema or uvula swelling. Eyes: Conjunctiva/sclera: Conjunctivae normal. Pupils: Pupils are equal, round, and reactive to light. Cardiovascular: Rate and Rhythm: Normal rate and regular rhythm. Heart sounds: Normal heart sounds. Pulmonary: Effort: Pulmonary effort is normal. No tachypnea, accessory muscle usage or respiratory distress. Breath sounds: Normal breath sounds. No stridor or decreased air movement. No wheezing, rhonchi or rales. Abdominal: General: There is no distension. Palpations: Abdomen is soft. Tenderness: There is no abdominal tenderness. There is no guarding or rebound. Musculoskeletal: Cervical back: Normal range of motion and neck supple. No edema, erythema, rigidity or tenderness. No pain with movement. Normal range of motion. Lymphadenopathy: Cervical: No cervical adenopathy. Skin: General: Skin is warm and dry. Neurological: Mental Status: She is alert and oriented to person, place, and time. ASSESSMENT/PLAN: 1. Suspected COVID-19 virus infection - ICD9: V01.79, ICD10: Z20.822 (primary diagnosis) - COVID NAAT, UPPER RESPIRATORY, ROUTINE - XR CHEST 2V FRONTAL/LAT 2. COPD with exacerbation (HCC) - ICD9: 491.21, ICD10: J44.1 IMPRESSION: No acute radiographic abnormality. Test for COVID-19. Patient is high risk. If positive patient would like antiviral treatment. Chest x-ray negative. Treat as acute COPD exacerbation. Placed on Mucinex prednisone and doxycycline. Patient was educated on supportive therapies. Patient will follow up with primary care provider as needed. Patient was instructed to immediately proceed to emergency room for any new, worsening, or symptoms lasting longer than anticipated. The patient's clinical presentation is otherwise unremarkable at this time. Based on exam and clinical finding, the patient is stable for discharge. Plan of care was discussed with patient. Patient verbalizes understanding and agrees to plan of care. This note was generated using flck.me software. It may contain errors in wording, punctuation, or spelling. Suhas Rivera APRN.INDRA documented in this encounter [facility] 05-12-2023 Miscellaneous Notes Scheduled patient and notified her documented in this encounter [facility] 04-22-2023 History of Present illness Narrative CDM Telephonic Outreach Provider Action/FYI COPD-baseline No concerns Asking about flu and covid vaccines. Advised flu vaccine requires appointment for nurse visit with office. Advised to ask about covid at time of call. Contacted for: Routine Telephonic Outreach Contact made with patient: Yes Patient identified by name and date of . Discussed care with patient Are you experiencing any new or worsening symptoms you need to talk about today? No Disease Specific Do you check your blood pressure at home? No Do you have new or worsening shortness of breath with activity? No Do you have new or worsening cough? No Do you have new or worsening wheezing? No Do you need to use your rescue (Albuterol) inhaler or nebulizer more often than normal? No Based on glass block bender, the following disposition is advised: No symptoms or symptoms present, not severe. Routed to: No Action Needed LEE Education Provided this Outreach: No Sergei Lauren RN April 22, 2023 3:30 PM documented in this encounter [facility] 04-10-2023 Note HNO ID: [id number] Author: Cleo Cannon MD Service: ? Author Type: Physician Type: Progress Notes Filed: 04/10/2023 2:15 PM Note Text: Cleo Cannon MD Breast [facility] [address] [place], [place] [id number] HPI: Ms. Wu is a White 88 year old woman who presents for follow up clinical breast examination after diagnostic right breast imaging. 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 This was treated with lumpectomy alone. Her margins were close (< 2 mm) but clear. The patient referred not to return to the operating room if possible for wider margins. The patient declined adjuvant radiation therapy. FAMILY HISTORY Problem Relation Age of Onset Alzheimer's Disease Mother Arthritis Father Stroke Father Breast Cancer Maternal Aunt other (lung cancer) Maternal Aunt Prostate Cancer Son Stroke Other Fatal. Brother in law. PAST MEDICAL HISTORY Diagnosis Date Aortic sclerosis 2012 Found on echo Arthritis of foot Bilateral heel spurs. 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 PAST SURGICAL HISTORY Procedure Laterality Date ARTHROPLASTY GLENOHUMRL JT HEMIARTHROPLASTY Left 03/2022 Arthroplasty, shoulder BREAST LUMPECTOMY HX Right 09/13/2021 U/S guided open right breast lumpectomy COLONOSCOPY FLX DX W/COLLJ SPEC WHEN PFRMD 03/26/2007 Colonoscopy DILATION AND CURETTAGE DXAND/THER NONOBSTETRIC Dilation AND curettage LAPAROSCOPY SURG CHOLECYSTECTOMY 1979 Cholecystectomy, lap SKIN BIOPSY HX Social History Tobacco Use Smoking status: Former Packs/day: 1.30 Years: 32.00 Additional pack years: 0.00 Total pack years: 41.60 Types: Cigarettes Start date: 03/10/1955 Quit date: 07/14/1986 Years since quittin.7 Smokeless tobacco: Never Tobacco comments: Parents did not smoke in childhood home. Spouse non smoker. Vaping Use Vaping Use: Never used Substance Use Topics Alcohol use: Yes Comment: Occasional. Drug use: No No question data found. LAB AND IMAGING RESULTS: IMPRESSION: BENIGN FINDING There is no mammographic evidence of malignancy. Return to annual mammogram screening schedule is recommended. Darien Bautista M.D. tab/penrad:04/10/2023 13:39:34 Head Refrigerating Engineer(s): Se Bliss(R)(M), [facility] Mammogram BI-RADS: 2 Benign finding Multiple national specialty organizations have released breast cancer screening guidelines for women at average risk for developing breast cancer - guidelines that are based on both evidence and opinion, yet differ on when to start and how often to screen for breast cancer. With representation from Breast Imaging, Internal Medicine, Women's Health, Family Medicine, and Medical/Surgical Oncology, the [facility] has carefully reviewed the data and reached the following consensus: 1) All women should engage in shared decision-making with their providers to decide when to start and how often to screen; 2) All women should have the opportunity to start screening mammography at age 40; 3) For women ages 45-55, we recommend annual screening mammograms; 4) For women ages 55 and over, we support both the transition from an annual to a biennial interval if this aligns more with patient's values and preferences, or continuation with annual screening; 5) All women should discuss with their providers when to stop screening mammograms. Adult High School Instructor: Tena Transcricharlee Date/Time: Apr 10 2023 1:00P Dictated by : DARIEN BAUTISTA MD This examination was interpreted and the report reviewed and electronically signed by: DARIEN BAUTISTA MD on Apr 10 2023 1:39PM EST Results-Findings * * *Final Report* * * DATE OF EXAM: Apr 10 2023 1:38PM [id number] - DAMARIS DIAG W BERLIN VITOR / PROCEDURE REASON: Ductal carcinoma in situ (DCIS) of right breast * * * * Physician Interpretation * * * * #[id number] - DAMARIS DIAG W BERLIN VITOR BILATERAL DIGITAL DIAGNOSTIC MAMMOGRAM TOMOSYNTHESIS WITH CAD: 04/10/2023 HISTORY: Ductal Carcinoma In Situ (Dcis) Of Right Breast/ Asymptomatic diagnostic mammogram. Personal history of breast cancer. RESULT: TECHNIQUE: The study was acquired using full field digital technology and interpreted from soft copy. Digital Breast Tomosynthesis (DBT) images were obtained and used to assist in the interpretation of this examination. Current study was also evaluated with a Computer Aided Detection (CAD). Comparison is made to exams dated: 10/07/2022 mammogram - [facility], 03/26/2022 mammogram, 08/15/2021 mammogram, and 05/29/2021 mammogram - [facility]. There are s (more content not included)... [facility] 04-10-2023 Nurse Note Marshall Wu is a 88 year old female who presents to follow up for 6 Month Exam and Results (Mammogram today There is no mammographic evidence of malignancy. Return to annual /mammogram screening schedule is recommended. ) Pt has h/o DCIS in 2021 with Right breast lumpectomy. Pt c/o tenderness with palpation of left breast below areola. Pt states the is a red spot at that site. . Angela Nuñez LPN documented in this encounter [facility] 04-10-2023 History of Present illness Narrative Images from the original note were not included. Cleo Cannon MD [facility] [address] [place], [place] [id number] HPI: Ms. Wu is a White 88 year old woman who presents for follow up clinical breast examination after diagnostic right breast imaging. 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 This was treated with lumpectomy alone. Her margins were close (< 2 mm) but clear. The patient referred not to return to the operating room if possible for wider margins. The patient declined adjuvant radiation therapy. FAMILY HISTORY Problem Relation Age of Onset Alzheimer's Disease Mother Arthritis Father Stroke Father Breast Cancer Maternal Aunt other (lung cancer) Maternal Aunt Prostate Cancer Son Stroke Other Fatal. Brother in law. PAST MEDICAL HISTORY Diagnosis Date Aortic sclerosis 2012 Found on echo Arthritis of foot Bilateral heel spurs. 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 PAST SURGICAL HISTORY Procedure Laterality Date ARTHROPLASTY GLENOHUMRL JT HEMIARTHROPLASTY Left 03/2022 Arthroplasty, shoulder BREAST LUMPECTOMY HX Right 09/13/2021 U/S guided open right breast lumpectomy COLONOSCOPY FLX DX W/COLLJ SPEC WHEN PFRMD 03/26/2007 Colonoscopy DILATION & CURETTAGE DX&/THER NONOBSTETRIC Dilation & curettage LAPAROSCOPY SURG CHOLECYSTECTOMY 1979 Cholecystectomy, lap SKIN BIOPSY HX Social History Tobacco Use Smoking status: Former Packs/day: 1.30 Years: 32.00 Additional pack years: 0.00 Total pack years: 41.60 Types: Cigarettes Start date: 03/10/1955 Quit date: 07/14/1986 Years since quittin.7 Smokeless tobacco: Never Tobacco comments: Parents did not smoke in childhood home. Spouse non smoker. Vaping Use Vaping Use: Never used Substance Use Topics Alcohol use: Yes Comment: Occasional. Drug use: No No question data found. LAB & IMAGING RESULTS: IMPRESSION: BENIGN FINDING There is no mammographic evidence of malignancy. Return to annual mammogram screening schedule is recommended. Darien hoffman/tena:04/10/2023 13:39:34 Head Refrigerating Engineer(s): Se Bliss(Jeronimo)(M), [facility] Mammogram BI-RADS: 2 Benign finding Multiple national specialty organizations have released breast cancer screening guidelines for women at average risk for developing breast cancer - guidelines that are based on both evidence and opinion, yet differ on when to start and how often to screen for breast cancer. With representation from Breast Imaging, Internal Medicine, Women's Health, Family Medicine, and Medical/Surgical Oncology, the [facility] has carefully reviewed the data and reached the following consensus: 1) All women should engage in shared decision-making with their providers to decide when to start and how often to screen; 2) All women should have the opportunity to start screening mammography at age 40; 3) For women ages 45-55, we recommend annual screening mammograms; 4) For women ages 55 and over, we support both the transition from an annual to a biennial interval if this aligns more with patient's values and preferences, or continuation with annual screening; 5) All women should discuss with their providers when to stop screening mammograms. Adult High School Instructor: Tena Transcribe Date/Time: Apr 10 2023 1:00P Dictated by : DARIEN BAUTISTA MD This examination was interpreted and the report reviewed and electronically signed by: DARIEN BAUTISTA MD on Apr 10 2023 1:39PM EST Results-Findings * * *Final Report* * * DATE OF EXAM: Apr 10 2023 1:38PM [id number] - DAMARIS QUENTIN W BERLIN VITOR / PROCEDURE REASON: Ductal carcinoma in situ (DCIS) of right breast * * * * Physician Interpretation * * * * #[id number] - DAMARIS COVARRUBIASG W BERLIN VITOR BILATERAL DIGITAL DIAGNOSTIC MAMMOGRAM TOMOSYNTHESIS WITH CAD: 04/10/2023 HISTORY: Ductal Carcinoma In Situ (Dcis) Of Right Breast/ Asymptomatic diagnostic mammogram. Personal history of breast cancer. RESULT: TECHNIQUE: The study was acquired using full field digital technology and interpreted from soft copy. Digital Breast Tomosynthesis (DBT) images were obtained and used to assist in the interpretation of this examination. Current study was also evaluated with a Computer Aided Detection (CAD). Comparison is made to exams dated: 10/07/2022 mammogram - [facility], 03/26/2022 mammogram, 08/15/2021 mammogram, and 05/29/2021 mammogram - [facility]. There are scattered areas of fibroglandular density. There are post-op changes associated with the right breast. No significant masses, calcifications, or other findings are seen in either breast. Review of Systems Constitutional: Negative for chills, fever, malaise/fatigue and weight loss. HENT: Negative for hearing loss. Eyes: Negative for blurred vision. Respiratory: Negative for cough, shortness of breath and wheezing. Cardiovascular: Positive for leg swelling. Negative for chest pain and palpitations. Gastrointestinal: Negative for abdominal pain, nausea and vomiting. Musculoskeletal: Positive for back pain. Negative for joint pain, myalgias and neck pain. Neurological: Negative for dizziness, tingling, tremors and headaches. PHYSICAL EXAMINATION: Physical exam below was completed in its entirety today April 10, 2023 and is unchanged from 10/07/2022 except for noted. There were no vitals taken for this visit. General appearance: Well appearing, alert, in no acute distress Skin: skin color, texture, turgor normal, no suspicious rashes or lesions Eyes: Anicteric sclera, Pupils are equally round and reactive Extremities: No clubbing, cyanosis, or edema. Neuro: Alert and oriented times three Physical Exam Chest: Breasts: Breasts are symmetrical. Right: Mass (1 cm lump located at 10:00 4 cm from the nipple clinically consistent with scar tissue) present. No swelling, inverted nipple, nipple discharge, skin change or tenderness. Left: No swelling, inverted nipple, mass, nipple discharge, skin change or tenderness. Lymphadenopathy: Upper Body: Right upper body: No axillary adenopathy. Left upper body: No axillary adenopathy. Physical Exam Plan IMPRESSION / PLAN: Ms. Wu is a White 88 year old woman who presents for follow up clinical breast examination after diagnostic right breast imaging. 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 This was treated with lumpectomy alone. Her margins were close (< 2 mm) but clear. The patient referred not to return to the operating room if possible for wider margins. The patient declined adjuvant radiation therapy. Clinical breast examination finds a well-healed incisional scar in the right breast in the upper outer quadrant. There is a stable 1 cm lump located at 10:00 4 cm in the nipple just beneath the scar clinically consistent with scar tissue. Otherwise, there are no skin changes associated nipple discharge or palpable lymphadenopathy. The left breast is unremarkable. Bilateral diagnostic mammogram performed today was reviewed both films and reports. The imaging was read as negative. Bilateral screening mammogram was ordered for 12 months. She will follow-up after the imaging. DIAGNOSIS: Encounter Diagnosis ICD-10-CM 1. Ductal carcinoma in situ (DCIS) of right breast D05.11 2. S/P lumpectomy, right breast Z98.890 Monthly self breast exams encouraged. I discussed my findings and recommendations with the patient. Ms. Wu is in agreement with the plan. Cleo Cannon MD documented in this encounter [facility] 04-03-2023 Instructions Tee Montgomery PA-C - 04/03/2023 10:48 AM EDT Give antibiotic 3 days and on 4th if not improving, let me. Limit activity and rest calf over the weekend. Use mychart to notify over the weekend on progress. If fever, marked worsening, red streaks from area: go to ED. Use bacitracin (polysporin) topically 2-3 time a day over wound. documented in this encounter [facility] 04-03-2023 History of Present illness Narrative 88 year old female with c/o wound on leg, caught lateral anterior knee on chair corner. Was seen in Express care: start keflex yesterday HISTORIES FAMILY HISTORY Problem Relation Age of Onset Alzheimer's Disease Mother Arthritis Father Stroke Father Breast Cancer Maternal Aunt other (lung cancer) Maternal Aunt Prostate Cancer Son Stroke Other Fatal. Brother in law. PAST MEDICAL HISTORY Diagnosis Date Aortic sclerosis 2012 Found on echo Arthritis of foot Bilateral heel spurs. 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 PAST SURGICAL HISTORY Procedure Laterality Date ARTHROPLASTY GLENOHUMRL JT HEMIARTHROPLASTY Left 03/2022 Arthroplasty, shoulder BREAST LUMPECTOMY HX Right 09/13/2021 U/S guided open right breast lumpectomy COLONOSCOPY FLX DX W/COLLJ SPEC WHEN PFRMD 03/26/2007 Colonoscopy DILATION & CURETTAGE DX&/THER NONOBSTETRIC Dilation & curettage LAPAROSCOPY SURG CHOLECYSTECTOMY 1979 Cholecystectomy, lap SKIN BIOPSY HX Social History Tobacco Use Smoking status: Former Packs/day: 1.30 Years: 32.00 Additional pack years: 0.00 Total pack years: 41.60 Types: Cigarettes Start date: 03/10/1955 Quit date: 07/14/1986 Years since quittin.7 Smokeless tobacco: Never Tobacco comments: Parents did not smoke in childhood home. Spouse non smoker. Vaping Use Vaping Use: Never used Substance Use Topics Alcohol use: Yes Comment: Occasional. 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 21 capsule 0 lisinopril (ZESTRIL) 20 mg tablet Take 1 tablet by mouth once daily. 90 tablet 1 budesonide-formoterol (SYMBICORT) 160-4.5 mcg/actuation inhaler Inhale 2 Puffs as instructed twice daily. 3 Each 3 rOPINIRole (REQUIP) 1 mg tablet Take 1 tablet by mouth daily at bedtime. 90 tablet 1 amLODIPine (NORVASC) 5 mg tablet Take 1 tablet by mouth once daily. 90 tablet 1 atorvastatin (LIPITOR) 20 mg tablet TAKE 1 TABLET DAILY AT BEDTIME FOR CHOLESTEROL 90 tablet 3 melatonin 10 mg cap Take 10 mg by mouth. ESOMEPRAZOLE MAGNESIUM (NEXIUM 24HR ORAL) Take by mouth. No current facility-administered medications for this visit. Advance Directive Discussion due on 07/14/2022 Depression Assessment Never done Influenza Vaccine(1) due on 03/14/2023 EXAM: BP 136/66 Pulse 86 Resp 16 Wt 70.1 kg (154 lb 9.6 oz) SpO2 96% BMI 27.39 kg/m Pleasant older adult woman in no acute distress. Alert and oriented all spheres. Normal affect and cognition. Speech normal. No deficits to learning or comprehension. Skin warm, dry, pink to lips and nailbeds. Normal turgor. Respirations regular and unlabored. Extrem: no clubbing or cyanosis. Edema: none. Extremities are warm and pink with prompt capillary refill. 4cm x 4 cm skin tear with adhered tissue with light erythema in 3cm band of drift down anterior calf, slightly warm, not really tender. Able to dorsiflex foot wihtout pain. No posterior calf pain or ascending streaks. ASSESSMENT/PLAN: ASSESSMENT/PLAN: 1. ISTAP type 1 skin tear of left lower leg - ICD9: 891.0, ICD10: S81.812A Keep area(s) clean and dry. Wash with soap and water twice a day followed by Bacitracin ointment and a clean dry gauze (not telfa) dressing until oozing or bleeding stops. Once wound is dry, you may leave it open to the air. Continue antibiotics. If would not improving by Friday in 2 days, she will notify through mychart. If any unusual pain, swelling, red streaks, pus, fever or other signs of worsening infection, go to ED Jeramie Montgomery PA-C documented in this encounter [facility] 04-01-2023 History of Present illness Narrative Images from the original note were not included. This note was created using AngelPrimeriter. Aldo Wu is a 88 year old female. HPI Patient presents with redness and swelling in the left lower extremity over the past 2 days. She states she scraped her leg on the side of her bed about 10 days ago. She states the wound had been healing but she noticed redness and swelling 2 days ago. Denies fever or chills. Denies history of cellulitis or MRSA. No pain in her calf. She does have a history of neuropathy. She is not diabetic. Review of Systems Musculoskeletal: Left lower leg wound with redness and swelling All other systems reviewed and are negative. PAST MEDICAL HISTORY Diagnosis Date Aortic sclerosis 2012 Found on echo Arthritis of foot Bilateral heel spurs. 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 90 tablet 1 budesonide-formoterol (SYMBICORT) 160-4.5 mcg/actuation inhaler Inhale 2 Puffs as instructed twice daily. 3 Each 3 rOPINIRole (REQUIP) 1 mg tablet Take 1 tablet by mouth daily at bedtime. 90 tablet 1 amLODIPine (NORVASC) 5 mg tablet Take 1 tablet by mouth once daily. 90 tablet 1 atorvastatin (LIPITOR) 20 mg tablet TAKE 1 TABLET DAILY AT BEDTIME FOR CHOLESTEROL 90 tablet 3 melatonin 10 mg cap Take 10 mg by mouth. ESOMEPRAZOLE MAGNESIUM (NEXIUM 24HR ORAL) Take by mouth. cephALEXin (KEFLEX) 500 mg capsule Take 1 capsule by mouth three times daily for 7 days. 21 capsule 0 No current facility-administered medications for this visit. PAST SURGICAL HISTORY Procedure Laterality Date ARTHROPLASTY GLENOHUMRL JT HEMIARTHROPLASTY Left 03/2022 Arthroplasty, shoulder BREAST LUMPECTOMY HX Right 09/13/2021 U/S guided open right breast lumpectomy COLONOSCOPY FLX DX W/COLLJ SPEC WHEN PFRMD 03/26/2007 Colonoscopy DILATION & CURETTAGE DX&/THER NONOBSTETRIC Dilation & curettage LAPAROSCOPY SURG CHOLECYSTECTOMY 1979 Cholecystectomy, lap SKIN BIOPSY HX FAMILY HISTORY Problem Relation Age of Onset Alzheimer's Disease Mother Arthritis Father Stroke Father Breast Cancer Maternal Aunt other (lung cancer) Maternal Aunt Prostate Cancer Son Stroke Other Fatal. Brother in law. Social History Tobacco Use Smoking status: Former Packs/day: 1.30 Years: 32.00 Additional pack years: 0.00 Total pack years: 41.60 Types: Cigarettes Start date: 03/10/1955 Quit date: 07/14/1986 Years since quittin.7 Smokeless tobacco: Never Tobacco comments: Parents did not smoke in childhood home. Spouse non smoker. Vaping Use Vaping Use: Never used Substance Use Topics Alcohol use: Yes Comment: Occasional. Drug use: No Objective BP 162/72 Pulse 96 Temp 36.4 C (97.6 F) Resp 22 Wt 70.2 kg (154 lb 12.8 oz) SpO2 97% BMI 27.42 kg/m Physical Exam Vitals reviewed. Constitutional: Appearance: Normal appearance. HENT: Head: Normocephalic and atraumatic. Cardiovascular: Rate and Rhythm: Normal rate and regular rhythm. Heart sounds: Normal heart sounds. Pulmonary: Effort: Pulmonary effort is normal. Breath sounds: Normal breath sounds. Musculoskeletal: Cervical back: Neck supple. Legs: Comments: Patient has a skin tear to the upper lateral lower leg. There is erythema and swelling to the anterior lower leg with warmth. No posterior swelling or pain. Negative Homans' sign. Pedal pulses 2+. Skin: General: Skin is warm and dry. Neurological: Mental Status: She is alert. Assessment and Plan ASSESSMENT/PLAN: 1. Cellulitis of left lower leg - ICD9: 682.6, ICD10: L03.116 - Begin treatment with Cephalaxin (Keflex) - Follow up for recheck in two days -Red flags for ER care discussed. Lorena Darby PA-C documented in this encounter [facility] 03-19-2023 History of Present illness Narrative [facility] Telephonic Outreach Provider Action/FYI COPD Doing well No concerns Neighbors took her out to lunch today for her Birthday Contacted for: Routine Telephonic Outreach Contact made with patient: Yes Patient identified by name and date of . Discussed care with patient Are you experiencing any new or worsening symptoms you need to talk about today? No Disease Specific Do you check your blood pressure at home? No Do you have new or worsening shortness of breath with activity? No Do you have new or worsening cough? No Do you have new or worsening wheezing? No Do you need to use your rescue (Albuterol) inhaler or nebulizer more often than normal? No Based on glass block bender, the following disposition is advised: No symptoms or symptoms present, not severe. Routed to: No Action Needed LEE Education Provided this Outreach: No Sergei Lauren RN March 19, 2023 4:18 PM documented in this encounter [facility] 02-28-2023 Miscellaneous Notes Called Marshall, relayed results, she verbally understood, advised her to contact the office with any additional questions or concerns. Asked about how her neck was feeling and she said sore, bruised, but better. Thanked me and ended call. FNA benign nodule. TSH within normal. No additional thyroid work up at this time. Patient called for left Throid FNA results from 02/24/23 and recommended follow up. Please advise and call patient back with recommendation. [phone] (home) [phone] (cell) documented in this encounter [facility] 02-24-2023 History of Present illness Narrative FNA of the Thyroid - Pt returns today for fna left thyroid nodule UNIVERSAL PROTOCOL / SAFETY CHECKLIST Procedure to be performed:left thyroid fna Sign in Communication: Completed Time Out: Team Confirms the Correct Patient, Correct Procedure, Correct Site and Site Marking, Correct Position (if applicable). Sign Out Discussion: Completed Risks benefits alternatives of proceeding with FNA were discussed with risks to include but not limited to hemorrhage, infection and possible need for further surgical intervention. Patient expressed understanding and wished to proceed. We also discussed the possible results to include nondiagnostic, benign and malignancy and the implications of each. Under ultrasound guidance the dominant left sided thyroid nodule was identified which measures 2.4 cm.The neck was then prepped 0.75% sensorcaine was infiltrated and an FNA was performed with good patient tolerance. Bandage and Ice were applied Cytology sent.. Patient will plan followup by my chart for results. 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 Sergei Lauren RN February 12, 2023 3:37 PM documented in this encounter [facility] 02-10-2023 History of Present illness Narrative Assessment IMPRESSION/PLAN: Marshall Wu is a 87 year old female wf with multinodular thyroid and single nodule with tirad 4 - we discussed fna, pt agreeable but prefers waiting until returns from vacation next week. Will also check TSH as none done since 2019. we discussed possible outcomes of FNA including indeterminate, benign nodule and the 4 typical types of cancer and treatments and f/u associated with each. HISTORY of PRESENT ILLNESS: Marshall Wu is a 87 year old female who presents in follow up of multinodular thyroid. . Last seen by Dr Mistry in 2020 , at that time pt opted for close US f/u of nodule rather than fna. No us done until 01/2023.findings include interval growth of nodule previosuly recommended for fna. No fhx of thyroid issues. Pt reports occ dysphagia, was to large pills, rare episodes with steak or crackrs. Never had EGD. No hoarseness, no awareness or sense of fullness in neck SURGICAL HISTORY: PAST SURGICAL HISTORY Procedure Laterality Date ARTHROPLASTY GLENOHUMRL JT HEMIARTHROPLASTY Left 03/2022 Arthroplasty, shoulder BREAST LUMPECTOMY HX Right 09/13/2021 U/S guided open right breast lumpectomy COLONOSCOPY FLX DX W/COLLJ SPEC WHEN PFRMD 03/26/2007 Colonoscopy DILATION & CURETTAGE DX&/THER NONOBSTETRIC Dilation & curettage LAPAROSCOPY SURG CHOLECYSTECTOMY 1980 Cholecystectomy, lap SKIN BIOPSY HX PAST MEDICAL HISTORY: PAST MEDICAL HISTORY Diagnosis Date Aortic sclerosis 2012 Found on echo Arthritis of foot Bilateral heel spurs. 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 budesonide-formoterol (SYMBICORT) 160-4.5 mcg/actuation inhaler Inhale 2 Puffs as instructed twice daily. rOPINIRole (REQUIP) 1 mg tablet Take 1 tablet by mouth daily at bedtime. amLODIPine (NORVASC) 5 mg tablet Take 1 tablet by mouth once daily. atorvastatin (LIPITOR) 20 mg tablet TAKE 1 TABLET DAILY AT BEDTIME FOR CHOLESTEROL melatonin 10 mg cap Take 10 mg by mouth. ESOMEPRAZOLE MAGNESIUM (NEXIUM 24HR ORAL) Take by mouth. No current facility-administered medications for this visit. SOCIAL HISTORY: Social History Tobacco Use Smoking status: Former Packs/day: 1.30 Years: 32.00 Total pack years: 41.60 Types: Cigarettes Start date: 03/10/1955 Quit date: 07/14/1986 Years since quittin.6 Smokeless tobacco: Never Tobacco comments: Parents did not smoke in childhood home. Spouse non smoker. Vaping Use Vaping Use: Never used Substance Use Topics Alcohol use: Yes Comment: Occasional. Drug use: No FAMILY HISTORY: FAMILY HISTORY Problem Relation Age of Onset Alzheimer's Disease Mother Arthritis Father Stroke Father Breast Cancer Maternal Aunt other (lung cancer) Maternal Aunt Prostate Cancer Son Stroke Other Fatal. Brother in law. EXAMINATION: BP 166/68 Pulse 88 Ht 5' 3 (1.60m) Wt 149 lb (67.6kg) BMI 26.40 kg/(m^2). BP 166/68 Pulse 88 Ht 160 cm (5' 3) Wt 67.6 kg (149 lb) BMI 26.39 kg/m Body mass index is 26.39 kg/m . General appearance: Well appearing, alert, in no acute distress Appears much younger than stated age Head: Normocephalic, atraumatic Eyes: Anicteric sclera , Pupils are equally round and reactive Neck: No JVD, Trachea midline, no cervical lymphadenopathy, nodular thyroid with palp thyroid right isthmus, no thyromegaly Extremities:No clubbing, cyanosis, or edema. Neuro: Alert and oriented times three, No apparent distress LABS: TSH 2018 1.24 IMAGING: Thyroid US 01/2023 and 01/2021 reviewed The thyroid gland is again enlarged with multiple nodules. Nodule #3 again has size/category for which FNA is recommended. This nodule is similar to slightly increased in size. Additional nodules have size/category for which ultrasound surveillance is recommended. ACR Recommendation: TI-RADS 4 nodule greater than 1.5 cm. FNA is recommended. ACR recommendations are strictly based on the size and imaging appearance at the time of the exam and do not consider stability or previous biopsy results. 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 High School Instructor: ANDRZEJ Transcribe Date/Time: Jan 26 2023 9:25A Dictated by : HUMAIRA ASH MD This examination was interpreted and the report reviewed and electronically signed by: HUMAIRA ASH MD on Jan 26 2023 9:29AM EST Results-Findings * * *Final Report* * * DATE OF EXAM: Jan 23 2023 2:04PM [facility] 1048 - US THYROID/PARATHYROID / PROCEDURE REASON: Thyroid and thyroid derivatives causing adverse effect in therapeutic use * * * * Physician Interpretation * * * * EXAMINATION: THYROID ULTRASOUND CLINICAL HISTORY: Thyroid and thyroid derivatives causing adverse effect in therapeutic use TECHNIQUE: Sonography and Doppler imaging of the thyroid was performed. Images were obtained and stored in a permanent archive. MQ: [id number] COMPARISON: 02/02/2021. RESULT: The thyroid gland is enlarged. The right thyroid lobe measures 4.8 x 3 x 2.5 cm. The left thyroid lobe measures 5.9 x 2.8 x 2.5 cm. The thyroid isthmus measures 6 mm in thickness. Parenchyma: Mild diffuse parenchymal heterogeneity. NODULES: Most suspicious nodules (up to 4) detailed below: Nodule #1 Location: Right lower pole Size: 7 x 8 x 5 mm; smaller than a more cystic-appearing nodule in this region on prior study which measured up to 1.6 cm at that time Characteristics: Composition: Mixed cystic and solid, 1 point Echogenicity: Hypoechoic, 2 points Shape: [id number], 0 points Margin: Smooth, 0 points Echogenic foci: None, 0 points TI-RADS Category: 3 ACR Recommendation: No FNA or further imaging is advised. Nodule #2 Location: Left upper pole Size: 8 x 10 x 8 mm; previously 11 x 7 x 12 mm Characteristics: Composition: Solid or almost completely solid, 2 points Echogenicity: Hypoechoic, 2 points Shape: [id number]-uhgr-sdbs, 0 points Margin: smooth or ill defined. 0 points Echogenic foci: None, 0 points TI-RADS Category: 4 ACR Recommendation: Follow up imaging in 1, 2, 3 and 5 years is advised. Nodule #3 Location: Inferior margin LEFT thyroid lobe Size: 2.7 x 2.1 x 1.3 cm; previously 2.4 x 1.9 x 1.4 cm Characteristics: Composition: Solid or almost completely solid, 2 points Echogenicity: Hypoechoic, 2 points Shape: Zkdav-[id number], 0 points Margin: Smooth, 0 points Echogenic foci: None, 0 points TI-RADS Category: 4 ACR Recommendation: FNA is recommended. Nodule #4 Location: Thyroid isthmus Size: 1.1 x 0.7 x 1.1 cm; not discretely measured on prior study Characteristics: Composition: Solid or almost completely solid, 2 points Echogenicity: Hypoechoic, 2 points Shape: Mbrbi-[id number]-knhq, 0 points Margin: Smooth, 0 points Echogenic foci: None, 0 points TI-RADS Category: 4 ACR Recommendation: Follow up imaging in 1, 2, 3 and 5 years is advised. - Christina William MD 02/10/2023 11:41 AM cc: Tee Montgomery [id number] [facility] [id number] documented in this encounter [facility] 02-07-2023 Miscellaneous Notes Called patient to confirm appt with Dr william for 02/10/23 since she was last seen by DR Mistry for thyroid 02/07/21. Patient states she is not entirely happy with provider, hence has requested to see Dr William. Encounter closed. documented in this encounter [facility] 02-06-2023 History of Present illness Narrative Images from the original note were not included. Patient: Marshall Wu PCP: Tee Montgomery PA-C CC: follow up HPI: Marshall Wu 87 year old female former 40 pack year smoker, quitting in 1986 with PMH significant for mild COPD, , HTN, GERD, HLD, melanoma, and breast cancer. Current therapy consists of Symbicort and as needed Albuterol. Using Symbicort 2 inhalations in the morning and 1 inhalation at night. Denies coughing, wheezing, chest pain/tightness. Exertional dyspnea with heat/humidity. Seasonal allergies and she takes OTC Zyrtec and Nasacort. No fevers, chills or night sweats. No lower extremity edema. Swims at least twice weekly. PAST MEDICAL HISTORY Diagnosis Date Aortic sclerosis 2012 Found on echo Arthritis of foot Bilateral heel spurs. 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 budesonide-formoterol (SYMBICORT) 160-4.5 mcg/actuation inhaler Inhale 2 Puffs as instructed twice daily. rOPINIRole (REQUIP) 1 mg tablet Take 1 tablet by mouth daily at bedtime. amLODIPine (NORVASC) 5 mg tablet Take 1 tablet by mouth once daily. atorvastatin (LIPITOR) 20 mg tablet TAKE 1 TABLET DAILY AT BEDTIME FOR CHOLESTEROL melatonin 10 mg cap Take 10 mg by mouth. ESOMEPRAZOLE MAGNESIUM (NEXIUM 24HR ORAL) Take by mouth. Social History Tobacco Use Smoking status: Former Packs/day: 1.30 Years: 32.00 Total pack years: 41.60 Types: Cigarettes Start date: 03/10/1955 Quit date: 07/14/1986 Years since quittin.5 Smokeless tobacco: Never Tobacco comments: Parents did not smoke in childhood home. Spouse non smoker. Vaping Use Vaping Use: Never used Substance Use Topics Alcohol use: Yes Comment: Occasional. Drug use: No Family History Problem Relation Age of Onset Alzheimer's Disease Mother Arthritis Father Stroke Father Breast Cancer Maternal Aunt other (lung cancer) Maternal Aunt Prostate Cancer Son Stroke Other Fatal. Brother in law. PAST SURGICAL HISTORY Procedure Laterality Date ARTHROPLASTY GLENOHUMRL JT HEMIARTHROPLASTY Left 03/2022 Arthroplasty, shoulder BREAST LUMPECTOMY HX Right 09/13/2021 U/S guided open right breast lumpectomy BREAST LUMPECTOMY HX Right 09/2021 COLONOSCOPY FLX DX W/COLLJ SPEC WHEN PFRMD 03/26/2007 Colonoscopy DILATION & CURETTAGE DX&/THER NONOBSTETRIC Dilation & curettage LAPAROSCOPY SURG CHOLECYSTECTOMY 1979 Cholecystectomy, lap SKIN BIOPSY HX I reviewed the past medical history, family history, social history and surgical history with changes noted above and updated in EMR. IMMUNIZATIONS Prevnar - 05/19/2015 Pneumovax - 05/17/2008 Influenza - 05/14/2022 COVID-19 - 11/01/2021, 08/31/2020, 08/03/2020, 05/17/2021 ROS: CONSTITUTIONAL: No fevers, chills, nightsweats, unintended weight loss HEENT: No headaches. Positive nasal congestion/sinus symptoms, allergy problems. CARDIOVASCULAR: No chest pain, dyspnea, palpitations, orthopnea, edema. PULM: See HPI GI: Positive reflux despite taking Nexium. No dysphagia INTEGUMENTARY: No new skin changes or rashes Otherwise negative. PHYSICAL EXAMINATION: BP 136/64 Pulse 94 Resp 14 Ht 160 cm (5' 3) Wt 68 kg (150 lb) SpO2 99% BMI 26.57 kg/m Gen: No acute distress. Cooperative with examination. HEENT: Normocephalic. Sclera, conjunctiva clear. Oral hygeine and dentition good. No thrush. Resp: No stridor, accessory respiratory muscle use, supra-sternal or intercostal retractions. No wheezes, crackles. CV: Regular rythm. Heart tones normal. Radial pulses normal. Abd: Non distended. MSK: No kyphoscoliosis. Ext: Warm and well perfused. No clubbing, cyanosis, edema. Skin: No rash, ecchymoses. Neuro: Mental status normal. Affect normal. No tremor. DATA: PFT, 02/06/2023 ASSESSMENT/PLAN: 1. 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) - ICD9: 496, ICD10: J44.9 (primary diagnosis) Symptomatically doing well. PFTs today are stable. Continue Symbicort twice daily. Rinse mouth after each use to help prevent oral thrush. 2. Seasonal allergic rhinitis, unspecified trigger - ICD9: 477.9, ICD10: J30.2 OTC Zyrtec and Nasacort as needed. 3. Gastroesophageal reflux disease, unspecified whether esophagitis present - ICD9: 530.81, ICD10: K21.9 Continue Nexium Portions of this documentation were copied and pasted from previous office visit notes in order to provide a cohesive continuity of the history. The note has been reviewed and edited and updated as necessary. Kamille Rizo PA-C documented in this encounter [facility] 02-06-2023 Nurse Note Intake information documented in the prior visit with ERNEI Taylor today. documented in this encounter [facility] 02-06-2023 History of Present illness Narrative PULM FUNCTION SMARTBLOCK: Provider: Angelika Chavez MD Assisting Tech: Farhat Corneluis RPFT Spirometry: 1 documented in this encounter [facility] 01-30-2023 Miscellaneous Notes Spoke with patient. She wants to call around for closer and earlier appointment. Will call back if needed. Patient informed and verbalized understanding. Sending to schedulers to help assist with Endo consult. Tory Morales Please let her know nodules are about the same but the on recommended for bx is slightly larger and FNA recommended again strictly based on size. I placed a consult to endo to review and perform FNA if advised. Telephone on 01/29/23 CONSULT TO ENDOCRINOLOGY ThanksJeramie PA-C documented in this encounter [facility] 01-29-2023 Miscellaneous Notes Patient called requesting the following refill. Requested Prescriptions Pending Prescriptions Disp Refills lisinopril (ZESTRIL) 20 mg tablet 90 tablet 1 Sig: Take 1 tablet by mouth once daily. Patient last appointment: 01/16/2023 Patient Phone numbers: [phone] (home) Request is for script(s) to be escript to pharmacy. Tory Morales documented in this encounter [facility] 01-28-2023 History of Present illness Narrative Images from the original note were not included. DATE OF SERVICE: 01/28/2023 PATIENT NAME: Marshall Wu : 1935 AGE: 87 y.o. CLINIC NUMBER: [id number] Visit type: Established patient Chief Complaint Patient presents with Actinic Keratosis (LMS) Subjective HISTORY OF PRESENT ILLNESS: This is a 87 y.o. female with a history of melanoma and NMSC who presents for evaluation of Aks; last seen 05/28/22. Tx: 1 lesion on the R nasal bridge x [address] Pt also used Efudex BID x 2 weeks to spot on L medial cheek. Pt states she feels the lesions may have resolved. Check spot on R forearm x months. Pt states the lesion is raised and tender at times. Has not bled. History of pacemaker/ defibrillator? No History of HIV/ Hep C? No Allergies to Lidocaine, Epinephrine, Latex or Adhesive? No Review of Systems There were no vitals filed for this visit. PHYSICAL EXAM GENERAL APPEARANCE:?Alert & oriented x3, pleasant. Well developed, well nourished. PSYCH: appropriate mood and affect LYMPHATIC: some enlarged lymph nodes of the neck are noted DERMATOLOGY: (all measurements are in cm, unless otherwise noted) 1. Skin lesion Right Forearm - Posterior 3mm firm flesh-colored papule at the midpoint of a previous surgical scar [x]Chronic []Acute []Stable [x]Flaring/Exacerbation Pt to monitor R forearm (consistent with scar on exam today). If changes noted or unresolved in 4 weeks, pt to return for further evaluation and management. 2. Seborrheic keratosis Left Thigh - Anterior Adamson-brown waxy papule(s) and plaque(s) [x]Chronic []Acute [x]Stable []Flaring/Exacerbation;rose Reassured that this is a benign lesion and does not require any treatment. Educated that if the lesion changes color, becomes larger, bleeds, becomes bothersome or painful then it should be reevaluated. Patient expresses understanding and is agreeable to plan. 3. Actinic keratoses (2) Head - Anterior (Face), Nose Few faint pink scaly macule(s) [x]Chronic []Acute [x]Stable []Flaring/Exacerbation Patient educated on actinic keratosis and the possibility of transformation into SCC. Treatment options are discussed with risks and benefits reviewed. Will continue to monitor lesions and will re-check at follow up in May. 4. History of malignant melanoma of skin Neck - Anterior No evidence of recurrence [x]Chronic []Acute [x]Stable []Flaring/Exacerbation No cutaneous evidence of recurrence Pt. Reports recent ultrasound of her neck to evaluate enlarged lymph nodes. Pt. To follow up with her physician soon and feels that a biopsy will be ordered Sunscreen Use & Sun Safety It is recommended a water-resistant, broad-spectrum sunscreen with SPF of at least 15 to 30. Apply sunscreen to all exposed skin 30 minutes before sun exposure, and then every 2 hours. Apply sooner if sweating or coming out of pool/water. Using the proper amount of sunscreen in important. An adult should use about 1-1.5 oz of sunscreen to the entire body, about 2-3 tablespoons per application. Use a lip balm with SPF 30 or higher to protect the lips from sun damage. Limit time in the sun, especially between 10 AM and 2 PM when the sun s rays are the strongest. Clothing labeled with a UPF (ultra-charly protection factor) rating indicates that it s protective against UV rays. Also, wear wide-brimmed hats, and sunglasses for sun protection. Follow up for As scheduled. Lora Santiago MD 01/29/23 7:03 AM REFERRING MD: documented in this encounter [facility] 01-16-2023 History of Present illness Narrative 87 year old female with c/o here for follow up 2 weeks ago had bright red bleeding with passing one stool. Nothing since. Nothing hurts back there. No hx of hemorrhoids. Had hard stools that week. Essential hypertension, benign (primary encounter diagnosis) Current meds: Amlodipine 5mg daily Lisinopril 20 mg daily Patient is compliant with meds Yes Monitors bp at home: Yes. If yes, readings: last night 155/ something Denies side effects: Yes. Chest pain: No. Dyspnea: No. Edema: No. Palpitations: No. Syncope: No. Headache: No. Dizziness: No. Last 3 Encounter BP Readings: Date: BP: 09/18/2022 180/92 08/08/2022 130/70 06/17/2022 128/64 Last 2 Encounter Wt Readings: Date: Wt: 09/18/2022 67.5 kg (148 lb 12.8 oz) 08/08/2022 68 kg (150 lb) Mixed hyperlipidemia Current medication Atorvastatin 20mg daily Taking medication consistently No Observing low cholesterol high fiber diet some Muscle aches No Stomach complaints/ diarrhea No Last 2 Lipids: Component Latest Ref Rng & Units 01/27/2021 11/22/2022 Cholesterol, Total <200 mg/dL 196 184 Triglyceride <150 mg/dL 99 110 HDL Cholesterol >39 mg/dL 74 67 LDL Cholesterol <100 mg/dL 102 (H) 95 Non HDL Cholesterol <130 mg/dL 122 117 Fasting Time hrs 10 10 VLDL Cholesterol <30 mg/dL 20 22 TC:HDL Ratio <5.10 2.65 2.75 LDL:HDL Ratio <2.54 1.38 1.42 Thyroid nodules 06/04/[address] Mistry: discussed FNA but patient asked for alternative so she suggested f/u thyroid US in 6 months but not ordered. 02/02/21 thyroid US NODULE 1 Inferior right thyroid lobe Size: 1.6 x 1.3 x 1.1 cm = TR1 benign- no f/u needed NODULE 2: Inferior right thyroid lobe medially Size: 1.6 x 1.3 x 1.1 cm, solid, isoechoic, internal vascularity present= [id number] imaging at 1, 3 and 5 years NODULE 3: Location: Mid left thyroid lobe Size: 1.2 x 1.1 x 0.7 cm solid, hypoechoic, internal vascularity= TR4 follow up imaging in 1, 2, 3 and 5 years NODULE 4: Location: Inferior left thyroid lobe: Size: 2.4 x 1.9 x 1.4 cm, solid, hypoechoic, internal vascularity present, TR4- FNA is recommended. 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 Interval history: none. Current medications: Budesonide-formoterol 160-4.5 mg actuation 2 puffs twice daily Worsening shortness of breath: No. Cough: No. Wheezing: No. Had 4 weeks of nasal congestion but better- used a nasal spray Smoking: No. Compliant with medications: Yes. Using rescue inhaler: none. Gastroesophageal reflux disease without esophagitis Current medication: Nexium 24h OTC Current symptoms: Last Mg level if on PPI chronically: 2.1. Heartburn is controlled: No. Dysphagia: No. A couple pills on occasion get stuck but eventually go down. Bloody or black stools: No. Bowel changes: No. Status post reverse arthroplasty of left shoulder Doing well Was able to golf. RLS Current medications: Ropinerole 1mg daily HS Doing well with medication. HISTORIES FAMILY HISTORY Problem Relation Age of Onset Alzheimer's Disease Mother Arthritis Father Stroke Father Breast Cancer Maternal Aunt other (lung cancer) Maternal Aunt Prostate Cancer Son Stroke Other Fatal. Brother in law. PAST MEDICAL HISTORY Diagnosis Date Aortic sclerosis 2012 Found on echo Arthritis of foot Bilateral heel spurs. 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 PAST SURGICAL HISTORY Procedure Laterality Date ARTHROPLASTY GLENOHUMRL JT HEMIARTHROPLASTY Left 03/2022 Arthroplasty, shoulder BREAST LUMPECTOMY HX Right 09/13/2021 U/S guided open right breast lumpectomy BREAST LUMPECTOMY HX Right 09/2021 COLONOSCOPY FLX DX W/COLLJ SPEC WHEN PFRMD 03/26/2007 Colonoscopy DILATION & CURETTAGE DX&/THER NONOBSTETRIC Dilation & curettage LAPAROSCOPY SURG CHOLECYSTECTOMY 1979 Cholecystectomy, lap SKIN BIOPSY HX Social History Tobacco Use Smoking status: Former Packs/day: 1.30 Years: 32.00 Pack years: 41.60 Types: Cigarettes Start date: 03/10/1955 Quit date: 07/14/1986 Years since quittin.5 Smokeless tobacco: Never Tobacco comments: Parents did not smoke in childhood home. Spouse non smoker. Vaping Use Vaping Use: Never used Substance Use Topics Alcohol use: Yes Comment: Occasional. 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 3 Each 3 rOPINIRole (REQUIP) 1 mg tablet Take 1 tablet by mouth daily at bedtime. 90 tablet 1 lisinopril (ZESTRIL) 20 mg tablet Take 1 tablet by mouth once daily. 90 tablet 1 amLODIPine (NORVASC) 5 mg tablet Take 1 tablet by mouth once daily. 90 tablet 1 atorvastatin (LIPITOR) 20 mg tablet TAKE 1 TABLET DAILY AT BEDTIME FOR CHOLESTEROL 90 tablet 3 melatonin 10 mg cap Take 10 mg by mouth. ESOMEPRAZOLE MAGNESIUM (NEXIUM 24HR ORAL) Take by mouth. No current facility-administered medications for this visit. ADVANCE DIRECTIVE DISCUSSION due on 07/14/2022 DEPRESSION ASSESSMENT Never done EXAM: BP 138/78 Pulse 79 Resp 16 Wt 68.5 kg (151 lb) SpO2 93% BMI 26.75 kg/m Pleasant well appearing adult woman in no acute distress. Alert and oriented all spheres. Normal affect and cognition. Speech normal. No deficits to learning or comprehension. Skin warm, dry, pink to lips and nailbeds. Normal turgor. Respirations regular and unlabored. HEENT: NCAT. No scleral icterus or conjunctival injection. TM's clear. Mild hearing loss. Nose and oropharynx free from injection or lesion. Oral membranes moist and pink. No cervical lymph nodes. Thyroid non-tender, no masses, or enlargement. Carotids pulses 2+/4+ without bruits. No JVD with HOB at 30 degrees. Chest is normal shape. Lungs are clear to all paul with good air exchange through out. HRRR without murmur or gallop. No lifts, heaves, or rubs. Extrem: no clubbing, cyanosis, edema. Distal pulses 2+/4, prompt capillary refill. Warm pink toes, normal nails. ASSESSMENT/PLAN: 1. Multiple thyroid nodules - ICD9: 241.1, ICD10: E04.2 (primary diagnosis) Schedule US - US THYROID/PARATHYROID 2. Essential hypertension, benign - ICD9: 401.1, ICD10: I10 - Controlled - Continue current medications - Recommend home blood pressure monitoring, to bring results to next visit - Encouraged sodium restriction, DASH or Mediterranean diet - Recommend regular aerobic exercise - BASIC METABOLIC PNL 3. Mixed hyperlipidemia - ICD9: 272.2, ICD10: E78.2 - Controlled - Continue current medications - Counseled on healthy diet and regular exercise 4. Hyperglycemia - ICD9: 790.29, ICD10: R73.9 Recheck for stability 6 months - HGB A1C - BASIC METABOLIC PNL 5. Simple chronic bronchitis (HCC) - ICD9: 491.0, ICD10: J41.0 Stable, compliant with medications, continue 6. Gastroesophageal reflux disease without esophagitis - ICD9: 530.81, ICD10: K21.9 - Continue treatment with esomeprazole OTC 24 QD 7. Status post reverse arthroplasty of left shoulder - ICD9: V43.61, ICD10: Z96.612 Doing very well 8. Restless legs - ICD9: 333.94, ICD10: G25.81 Requip helps tremendously. Continue medication F/u 6 months. Tee Montgomery PA-C documented in this encounter [facility] 11-25-2022 History of Present illness Narrative Episode Visit Count: 4 Therapist That Will Accept/Oversee The Plan Of Care: Angel Ernandez Start of Care Date: 11/06/22 Onset Date: 08/08/22 Plan of Care Certification Date: 11/06/22 Next Certification Due Date: 01/06/23 REHABILITATION AND SPORTS THERAPY PHYSICAL THERAPY DISCONTINUANCE OF CARE PLAN OF CARE UPDATE: Assessment: Marshall Wu is discontinued from Physical Therapy services due to maximal benefit. and Patient/Client declining further intervention.. Patient was seen for 4 visits from Start of Care Date: 11/06/22 to 11/25/2022 and treatment included: Therapeutic exercise and Manual therapy. Patient has seen no change in symptoms thus far with skilled therapy, and unlikely to make further progress. At this time patient will return to PCP for updated plan of care. Goals updated on 11/25/2022. Goals for Episode of Care: created on 11/06/22 through 01/06/23 Independent in home exercises. Met Patient will decrease pain rating by 2 points to meet minimal clinical important difference for numeric pain rating scale. Not met Restore pain-free lumbar ROM to minimal limitations to allow for improved functional mobility. Not met Stand / Walk as needed for ADLs and recreational activities without Pain/symptoms. Not met Patient will increase strength of trunk/core to 5/5 to allow for improve ability to complete ADLs. Not met SUBJECTIVE: Patient Reason for Visit: Pt played 16 holes at the end of last week. She was hurting pretty good by the end. Pt notes no change in symptoms or function thus far with therapy. Pain: Pain Pain Level: 5 Pain Location: Low Back/Lumbar Spine - Right Description: Aching, Sore Frequency: Intermittent PROMIS Scales Higher is Better 11/05/2022 Phys Func - Score 39 (moderate dysfunction) Phys Func - Percentile 14 % Self-Eff Symptom - Score 47 (Average) Self-Eff Symptom - Percentile 38 % T-scores: mean of general population = 50. 5 points is clinically meaningfully difference Percentiles provide an indication of how the patient's score ranks in relation to the general population. Higher percentile rankings indicate better function/quality of life. 50th percentile is the average of the general population and indicates half of respondents had a worse score. OBJECTIVE MEASURES WITH LEVEL OF FUNCTION: Lumbar Spine AROM Lumbar Flexion: Normal Lumbar Extension: Major limitation Lumbar R Side-Bend: Major limitation Lumbar L Side-Bend: Moderate limitation Lumbar R Rotation: Normal Lumbar L Rotation: Normal LE Strength Trunk Strength: 4/5 R LE Strength: 4+/5 L LE Strength: 4+/5 TREATMENT: Therapeutic Exercise: 3: Reviewed HEP 4: GTB stir the pot x10/side cw/ccw 5: GTB chops and lifts x10/side Skilled Intervention: Patient was educated in proper exercise technique and purpose for exercises. Skilled judgment was provided in selection of appropriate interventions. Provided written instruction for home exercise program to facilitate proper performance and compliance. Correct performance of therapeutic exercises was facilitated with verbal, visual, and tactile cuing. Manual Therapy: 1: Manual lumbar belt traction x15 min with feet on stool Skilled Intervention: Manual skills to improve joint mobility, ROM, and decrease pain. Utilized anatomy knowledge of the therapist, and assessment of patient's response to intervention. Billing Therapeutic Exercise Treatment Minutes: 10 Manual TherapyTreatment Minutes: 15 Total Treatment Time Minutes (timed/untimed): 25 Angel Ernandez PT documented in this encounter [facility] 11-19-2022 Miscellaneous Notes Get Medical Advice on 11/19/22 HGB A1C CBC + DIFF VITAMIN D 25 HYDROXY LIPID PANEL BASIC COMP METABOLIC PANEL MAGNESIUM BLD Jeramie Montgomery PA-C Lab orders 11/20/2022. Will need reordered. Please review and advise. documented in this encounter [facility] 11-19-2022 History of Present illness Narrative POPULATION HEALTH NAVIGATION OUTREACH Action/FYI LVM MYCHART MESSAGE SENT ANNUAL MEDICARE WELLNESS EXAM ADVANCE DIRECTIVE DISCUSSION Patient Identified by Name and : NO Outreach Outcome/Action Unable to reach patient: Left message [facility] message sent Did you use a PCP flex slot to schedule this appointment? N/A Reason for Outreach Care Gap or Scheduling/Wellness visits Payer: Payor: MEDICARE / Plan: MEDICARE A AND B / Product Type: Medicare / Care Gap Reviewed:: Annual Wellness visit Reminder: Reminder note to check Health Maintenance for items below Health Maintenance items due: ADVANCE DIRECTIVE DISCUSSION due on 07/14/2022 DEPRESSION ASSESSMENT Never done Navigation Signature: Allyson No MA November 19, 2022 8:36 AM documented in this encounter [facility] 11-14-2022 History of Present illness Narrative Episode Visit Count: 2 Therapist That Will Accept/Oversee The Plan Of Care: Angel Ernandez Start of Care Date: 11/06/22 Onset Date: 08/08/22 Plan of Care Certification Date: 11/06/22 Next Certification Due Date: 01/06/23 REHABILITATION AND SPORTS THERAPY PHYSICAL THERAPY TREATMENT NOTE ASSESSMENT: Marshall Wu tolerated the session with no issues. She demonstrated difficulty with back pain and recreational activities. The patient will continue to benefit from ongoing skilled physical therapy to progress toward set goals. PLAN FOR NEXT VISIT: Continue exercise progression. Continue traction as well SUBJECTIVE: Patient Reason for Visit: No change thus far. Doing hr exercises a couple times a day. Got out to golf once and made it 9 holes before she needed to quit Pain: Pain Pain Level: 5 Pain Location: Low Back/Lumbar Spine - Right Description: Aching, Sore Frequency: Intermittent OBJECTIVE MEASURES WITH LEVEL OF FUNCTION: Traction relieves back pain for pt TREATMENT: Therapeutic Exercise: 1: SKC 3x30 sec 2: DKC 3x30 sec 3: Pallof press GTB 3x10/side 4: *GTB chops 2x10/side 5: *GTB lifts 2x10/side 6: *GTB stir the pot 2x10/side cw/ccw Skilled Intervention: Patient was educated in proper exercise technique and purpose for exercises. Skilled judgment was provided in selection of appropriate interventions. Provided written instruction for home exercise program to facilitate proper performance and compliance. Correct performance of therapeutic exercises was facilitated with verbal, visual, and tactile cuing. Manual Therapy: 1: Manual lumbar belt traction x10 min with feet on stool Skilled Intervention: Manual skills to improve joint mobility, ROM, and decrease pain. Utilized anatomy knowledge of the therapist, and assessment of patient's response to intervention. Billing Therapeutic Exercise Treatment Minutes: 20 Manual TherapyTreatment Minutes: 10 Total Treatment Time Minutes (timed/untimed): 30 Angel Ernandez PT documented in this encounter [facility] 11-06-2022 History of Present illness Narrative Episode Visit Count: 1 Therapist That Will Accept/Oversee The Plan Of Care: Angel Ernandez Start of Care Date: 11/06/22 Onset Date: 08/08/22 Plan of Care Certification Date: 11/06/22 Next Certification Due Date: 01/06/23 Patient Identified by Name and Date of : Yes REHABILITATION AND [facility] PHYSICAL THERAPY EVALUATION PLAN OF CARE: Assessment: Marshall Wu presents with chief complaint of LBP that interferes with walking, walking in the community, heavy exertion, lifting, physical activities, recreational activities . She presents with impairments in ADL's, overall function, posture, range of motion, strength, and symptom management. PROMIS (Patient-Reported Outcomes Measurement Information System) scores were reviewed and physical function domain identified as a rehabilitation concern. Prognosis for therapy is Good due to: current objective clinical presentation, good overall health status, good support system/ coping skills . She will benefit from skilled therapy services to meet the goals established for this plan of care as noted below. Classification Low Back Pain Subgroup Classification: Specific exercise subgroup: recommended visits 8. Specific Exercies Subgroup Classification based on: directional preference Goals for Episode of Care: created on 11/06/22 through 01/06/23 Independent in home exercises. Patient will decrease pain rating by 2 points to meet minimal clinical important difference for numeric pain rating scale. Restore pain-free lumbar ROM to minimal limitations to allow for improved functional mobility Stand / Walk as needed for ADLs and recreational activities without pain/symptoms. Patient will increase strength of trunk/core to 5/5 to allow for improve ability to complete ADLs. Planned Interventions, Frequency, and Duration: Current Frequency: 1x/week Duration: 8 weeks Total Number of Visits Planned: 8 Planned Treatment Interventions: Therapeutic exercise (70685), Neuromuscular re-education (53768), Manual therapy (58728), Therapeutic activities (82493), Self-long term management (60921), Patient/Family/Caregiver Education, Body Mechanics Training PLAN FOR NEXT VISIT: Progress strengthening. May try stir the pot or chops/lifts Patient demonstrates good understanding of plan of care and treatment. The above goals and plan of care were discussed and agreed upon by patient/family. SUBJECTIVE: Marshall Wu is a 87 year old female seen today for LBP for a few months. Mostly hurts when standing too long, walking too much, and more recently when playing golf it hurts so bad she can hardly stand it Functional Limitations: walking, walking in the community, heavy exertion, lifting, physical activities, recreational activities Pain: Pain Pain Level: 5 Pain Location: Low Back/Lumbar Spine - Right Description: Aching, Sore Frequency: Intermittent PROMIS Scales Higher is Better 11/05/2022 Phys Func - Score 39 (moderate dysfunction) Phys Func - Percentile 14 % Self-Eff Symptom - Score 47 (Average) Self-Eff Symptom - Percentile 38 % T-scores: mean of general population = 50. 5 points is clinically meaningfully difference Percentiles provide an indication of how the patient's score ranks in relation to the general population. Higher percentile rankings indicate better function/quality of life. 50th percentile is the average of the general population and indicates half of respondents had a worse score. OBJECTIVE MEASURES WITH LEVEL OF FUNCTION: Spine Observations R Lumbar Spine Palpation Tenderness: Paraspinals, Piriformis Lumbar Spine AROM Lumbar Flexion: Normal Lumbar Extension: Major limitation Lumbar R Side-Bend: Major limitation Lumbar L Side-Bend: Moderate limitation Lumbar R Rotation: Normal Lumbar L Rotation: Normal Repeated Test Movements - Lumbar RFIL - Symptoms During: decreases RFIL - Symptoms After: better LE Strength Trunk Strength: 4/5 R LE Strength: 4+/5 L LE Strength: 4+/5 Special Tests - Hip and Spine Hip and Spine Special Tests: SLR Test SLR Test: Right Negative, Left Negative Education: Education Learning/educational needs: Home exercise program, Plan of Care, Changes in Plan of Care, Posture, Body Mechanics TREATMENT: PT Treatment Interventions: Therapeutic Exercise Evaluation Therapeutic Exercise: 1: *SKC 3x30 sec 2: *DKC 3x30 sec 3: *Hooklying trunk rotations 3x20/side 4: *Pallof press GTB 3x10/side 5: *Straight arm extensions GTB 3x10 6: *Rows in standing GTB 3x10 Skilled Intervention: Patient was educated in proper exercise technique and purpose for exercises. Skilled judgment was provided in selection of appropriate interventions. Provided written instruction for home exercise program to facilitate proper performance and compliance. Correct performance of therapeutic exercises was facilitated with verbal, visual, and tactile cuing. Additional time necessary for cuing of proper form of exercises due to patient request. Educated patient on rationale for performing exercises in regards to improving fitness, increase ease of ADL, and ROM and function . Patient education as noted. Billing * Evaluation Low Complexity: 1 Unit Therapeutic Exercise Treatment Minutes: 25 Total Treatment Time Minutes (timed/untimed): 50 Angel Ernandez PT documented in this encounter [facility] 11-05-2022 History of Present illness Narrative POPULATION HEALTH NAVIGATION OUTREACH Action/FYI Physical therapy appointment scheduled. Patient Identified by Name and : YES, via phone Outreach Outcome/Action Spoke to patient / parent / legal guardian: Patient scheduled Did you use a PCP flex slot to schedule this appointment? N/A Reason for Outreach Community Monitoring Pool Payer: Payor: MEDICARE / Plan: MEDICARE A AND B / Product Type: Medicare / Care Gap Reviewed:: Specialty Scheduling Reminder: Reminder note to check Health Maintenance for items below Health Maintenance items due: ADVANCE DIRECTIVE DISCUSSION due on 07/14/2022 DEPRESSION ASSESSMENT Never done Navigation Signature: Светлана Chapman November 05, 2022 4:33 PM [facility] Telephonic Outreach Provider Action/FYI COPD Completed X rays as recommended but has not heard from PT to schedule? Given number to Dana [phone]. Will send to [facility] to assist if able to schedule Contacted for: Routine Telephonic Outreach Contact made with patient: Yes Patient identified by name and date of . Discussed care with patient Are you experiencing any new or worsening symptoms you need to talk about today? No Disease Specific Do you check your blood pressure at home? No Do you have new or worsening shortness of breath with activity? No Do you have new or worsening cough? No Do you have new or worsening wheezing? No Do you need to use your rescue (Albuterol) inhaler or nebulizer more often than normal? No Based on glass block bender, the following disposition is advised: Symptoms present, not severe. Routed to: No Action Needed LEE Education Provided this Outreach: No Sergei Lauren RN November 05, 2022 4:12 PM documented in this encounter [facility] 11-04-2022 Miscellaneous Notes Patient has been identified by name and date of : Yes Requested Prescriptions Pending Prescriptions Disp Refills rOPINIRole (REQUIP) 1 mg tablet 90 tablet 1 Sig: Take 1 tablet by mouth daily at bedtime. RX INSTRUCTIONS: Patient aware RX will be sent to pharmacy. No need to notify patient. Harika Ye Ma documented in this encounter [facility] 10-30-2022 Miscellaneous Notes Wants to see pain management for low back pain. OMT with piriformis release helped significantly in office. Massotherapy has not helped. Please assist to schedule, wants to see Dr. Stokes. Please have her come in for XR and PT consult- at least should start there. [facility] Get Medical Advice on 10/30/22 XR LUMBAR GENERAL 3V AP/LAT/L5-S1 CONSULT TO PAIN MGT CONSULT TO PHYSICAL THERAPY Thanks, Jeramie Montgomery PA-C documented in this encounter [facility] 10-07-2022 Note HNO ID: [id number] Author: Cleo Cannon MD Service: ? Author Type: Physician Type: Progress Notes Filed: 10/07/2022 3:19 PM Note Text: Cleo Cannon MD Breast [facility] [address] [place] [address] HPI: Ms. Wu is a White 87 year old woman who presents for follow up clinical breast examination after diagnostic breast imaging. 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 This was treated with lumpectomy alone. Her margins were close (< 2mm) but clear. The patient preferred not to return to the operating room if possible for wider margins. FAMILY HISTORY Problem Relation Age of Onset Alzheimer's Disease Mother Arthritis Father Stroke Father Breast Cancer Maternal Aunt other (lung cancer) Maternal Aunt Prostate Cancer Son Stroke Other Fatal. Brother in law. PAST MEDICAL HISTORY Diagnosis Date Aortic sclerosis 2012 Found on echo Arthritis of foot Bilateral heel spurs. 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 PAST SURGICAL HISTORY Procedure Laterality Date ARTHROPLASTY GLENOHUMRL JT HEMIARTHROPLASTY Left 03/2022 Arthroplasty, shoulder BREAST LUMPECTOMY HX Right 09/13/2021 U/S guided open right breast lumpectomy BREAST LUMPECTOMY HX Right 09/2021 COLONOSCOPY FLX DX W/COLLJ SPEC WHEN PFRMD 03/26/2007 Colonoscopy DILATION AND CURETTAGE DXAND/THER NONOBSTETRIC Dilation AND curettage LAPAROSCOPY SURG CHOLECYSTECTOMY 1980 Cholecystectomy, lap SKIN BIOPSY HX Social History Tobacco Use Smoking status: Former Packs/day: 1.30 Years: 32.00 Pack years: 41.60 Types: Cigarettes Start date: 03/10/1955 Quit date: 07/14/1986 Years since quittin.2 Smokeless tobacco: Never Tobacco comments: Parents did not smoke in childhood home. Spouse non smoker. Vaping Use Vaping Use: Never used Substance Use Topics Alcohol use: Yes Comment: Occasional. Drug use: No No question data found. LAB AND IMAGING RESULTS: IMPRESSION: BENIGN FINDING The irregular mass in the right breast resembles a lymph node and is benign. There is no mammographic evidence of malignancy. A 1 year screening mammogram is recommended. LIMITED ULTRASOUND OF RIGHT BREAST: 10/07/2022 RESULT: Comparison is made to exams dated: 03/26/2022 mammogram, 08/22/2021 mammogram, 08/15/2021 mammogram, 05/29/2021 mammogram, 04/24/2021 mammogram, and 04/21/2020 mammogram - [facility]. Color flow and real-time ultrasound of the right breast 9 o'clock region were performed. Leal scale images of the real-time examination were reviewed. There is a benign 8 mm lymph node in the right breast at 9 o'clock posterior depth. This normal lymph node displays fatty hilum. Color flow imaging demonstrates that there is internal vascularity. IMPRESSION: BENIGN FINDING There is no sonographic evidence of malignancy. The 8 mm lymph node in the right breast is benign. A 1 year screening mammogram is recommended. Dmitri Lindsey M.D. kk/:10/07/2022 14:37:43 Multiple national specialty organizations have released breast cancer screening guidelines for women at average risk for developing breast cancer - guidelines that are based on both evidence and opinion, yet differ on when to start and how often to screen for breast cancer. With representation from Breast Imaging, Internal Medicine, Women's Health, Family Medicine, and Medical/Surgical Oncology, the [facility] has carefully reviewed the data and reached the following consensus: 1) All women should engage in shared decision-making with their providers to decide when to start and how often to screen; 2) All women should have the opportunity to start screening mammography at age 40; 3) For women ages 45-55, we recommend annual screening mammograms; 4) For women ages 55 and over, we support both the transition from an annual to a biennial interval if this aligns more with patient's values and preferences, or continuation with annual screening; 5) All women should discuss with their providers when to stop screening mammograms. Head Refrigerating Engineer(s): Viola Bliss)(Tee), [facility]; [facility] letter sent: Normal over 40 OVERALL STUDY BIRADS: 2 Benign finding Adult High School Instructor: Tena Transcribe Date/Time: Oct 07 2022 1:43P Dictated by : DMITRI LINDSEY MD This examination was interpreted and the report reviewed and electronically signed by: DMITRI LINDSEY MD on Oct 07 2022 2:37PM EST Results-Findings * * *Final Report* * * DATE OF EXAM: Oct 07 2022 1:43PM AAW [id number] - DAMARIS US BREAST LTD RT / (more content not included)... [facility] 10-07-2022 History of Present illness Narrative INSIGHT CD TELEPHONIC OUTREACH Provider Action/FYI: Skin tear-steri strips Recent shoulder surgery-just back from [facility] in [place] Contact made with patient: No - Left message Hello my name is Sergei Lauren RN your [employer]eral Home Location Manager from the [facility] I am calling today for your bi-weekly check in. I am sorry I missed your call. I will reach out to you again tomorrow. (if the third call I will reach out to you again next week) Enter next patient outreach date for the following business day using the Track Pt Outreach. End outreach. documented in this encounter [facility] 09-23-2022 Miscellaneous Notes Patient has been identified by name and date of : Yes Requested Prescriptions Pending Prescriptions Disp Refills lisinopril (ZESTRIL) 20 mg tablet 90 tablet 1 Sig: Take 1 tablet by mouth once daily. amLODIPine (NORVASC) 5 mg tablet 90 tablet 1 Sig: Take 1 tablet by mouth once daily. RX INSTRUCTIONS: Patient aware RX will be sent to pharmacy. No need to notify patient. Seen 09/20/22 and follow up is scheduled. Dorothy Mathew LPN documented in this encounter [facility] 09-20-2022 History of Present illness Narrative 87 year old female with c/o here for follow up Urinary frequency which started in [place] 9-10 days ago. Went UC was pyridium but later called and identified UTI on culture. Sent antibiotic somewhere in [facility]. No current sx but concerned about treatment. Low back aches. No nausea, vomiting or fever. Essential hypertension, benign (primary encounter diagnosis) Current meds: Amlodipine 5mg daily Lisinopril 20 mg daily Patient is compliant with meds Yes Monitors bp at home: Yes. If yes, readings: last night 155/ something Denies side effects: Yes. Chest pain: No. Dyspnea: No. Edema: No. Palpitations: No. Syncope: No. Headache: No. Dizziness: No. Last 3 Encounter BP Readings: Date: BP: 09/18/2022 180/92 08/08/2022 130/70 06/17/2022 128/64 Last 2 Encounter Wt Readings: Date: Wt: 09/18/2022 67.5 kg (148 lb 12.8 oz) 08/08/2022 68 kg (150 lb) Mixed hyperlipidemia Current medication Atorvastatin 20mg daily Taking medication consistently No Observing low cholesterol high fiber diet some Muscle aches No Stomach complaints/ diarrhea No Last 2 Lipids: Component Latest Ref Rng & Units 01/27/2021 08/02/2021 Cholesterol, Total <200 mg/dL 196 200 (H) Triglyceride <150 mg/dL 99 108 HDL Cholesterol >39 mg/dL 74 77 LDL Cholesterol <100 mg/dL 102 (H) 101 (H) Non HDL Cholesterol <130 mg/dL 122 123 Fasting Time hrs 10 12 VLDL Cholesterol <30 mg/dL 20 22 TC:HDL Ratio <5.10 2.65 2.60 LDL:HDL Ratio <2.54 1.38 1.31 Hyperglycemia Hemoglobin A1C (%) Date Value 01/27/2021 5.8 02/02/2020 5.6 ) Simple chronic bronchitis (hcc) 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 Chavez. Interval history: none. Current medications: Budesonide-formoterol 160-4.5 mg actuation 2 puffs twice daily Worsening shortness of breath: No. Cough: No. Wheezing: No. Had 4 weeks of nasal congestion but better- used a nasal spray Smoking: No. Compliant with medications: Yes. Using rescue inhaler: none. Gastroesophageal reflux disease without esophagitis Current medication: Nexium 24h OTC Current symptoms: a little weird after ropinerole and melatonin.at bedtime. Last Mg level if on PPI chronically: 2.1. Heartburn is controlled: No. Dysphagia: No. A couple pills on occasion get stuck but eventually go down. Bloody or black stools: No. Bowel changes: No. Status post reverse arthroplasty of left shoulder Doing well Was able to golf. RLS Current medications: Ropinerole 1mg daily HS Doing well with medication. HISTORIES FAMILY HISTORY Problem Relation Age of Onset Alzheimer's Disease Mother Arthritis Father Stroke Father Breast Cancer Maternal Aunt other (lung cancer) Maternal Aunt Prostate Cancer Son Stroke Other Fatal. Brother in law. PAST MEDICAL HISTORY Diagnosis Date Aortic sclerosis 2012 Found on echo Arthritis of foot Bilateral heel spurs. 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 PAST SURGICAL HISTORY Procedure Laterality Date ARTHROPLASTY GLENOHUMRL JT HEMIARTHROPLASTY Left 03/2022 Arthroplasty, shoulder BREAST LUMPECTOMY HX Right 09/13/2021 U/S guided open right breast lumpectomy BREAST LUMPECTOMY HX Right 09/2021 COLONOSCOPY FLX DX W/COLLJ SPEC WHEN PFRMD 03/26/2007 Colonoscopy DILATION & CURETTAGE DX&/THER NONOBSTETRIC Dilation & curettage LAPAROSCOPY SURG CHOLECYSTECTOMY 1979 Cholecystectomy, lap SKIN BIOPSY HX Social History Tobacco Use Smoking status: Former Packs/day: 1.30 Years: 32.00 Pack years: 41.60 Types: Cigarettes Start date: 03/10/1955 Quit date: 07/14/1986 Years since quittin.2 Smokeless tobacco: Never Tobacco comments: Parents did not smoke in childhood home. Spouse non smoker. Vaping Use Vaping Use: Never used Substance Use Topics Alcohol use: Yes Comment: Occasional. 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 90 tablet 1 rOPINIRole (REQUIP) 1 mg tablet Take 1 tablet by mouth daily at bedtime. 90 tablet 1 atorvastatin (LIPITOR) 20 mg tablet TAKE 1 TABLET DAILY AT BEDTIME FOR CHOLESTEROL 90 tablet 3 budesonide-formoterol (SYMBICORT) 160-4.5 mcg/actuation inhaler Inhale 2 Puffs as instructed twice daily. 3 Each 3 lisinopril (ZESTRIL, PRINIVIL) 20 mg tablet Take 1 tablet by mouth once daily. 90 tablet 1 melatonin 10 mg cap Take 10 mg by mouth. ESOMEPRAZOLE MAGNESIUM (NEXIUM 24HR ORAL) Take by mouth. No current facility-administered medications for this visit. ADVANCE DIRECTIVE DISCUSSION due on 07/14/2022 DEPRESSION ASSESSMENT Never done EXAM: BP 144/72 Pulse 83 Resp 16 Wt 68 kg (150 lb) SpO2 96% BMI 26.57 kg/m Pleasant older adult woman in no acute distress. Alert and oriented all spheres. Normal affect and cognition. Speech normal. No deficits to learning or comprehension. Skin warm, dry, pink to lips and nailbeds. Normal turgor. Respirations regular and unlabored. HEENT: NCAT. No scleral icterus or conjunctival injection. TM's clear. Nose and oropharynx free from injection or lesion. Oral membranes moist and pink. No cervical lymph nodes. Thyroid non-tender, no masses, or enlargement. Carotids pulses 2+/4+ without bruits. No JVD with HOB at 30 degrees. Chest is normal shape. Lungs are clear to all paul with good air exchange through out. HRRR without murmur or gallop. No lifts, heaves, or rubs. Bilateral QL muscles tender aggravated by mimicking golf swing. Myofascial release with improvement Extrem: no clubbing or cyanosis. Edema: none. Extremities are warm and pink with prompt capillary refill. ASSESSMENT/PLAN: 1. Essential hypertension, benign - ICD9: 401.1, ICD10: I10 (primary diagnosis) - good control - Continue current medication(s) - Recommended regular aerobic exercise. - Recommend home blood pressure monitoring, to bring results in on next visit - Goal of BP <130/80 - COMP METABOLIC PANEL - CBC + DIFF 2. Mixed hyperlipidemia - ICD9: 272.2, ICD10: E78.2 - good control - Continue current medication. - COMP METABOLIC PANEL - LIPID PANEL BASIC 3. Hyperglycemia - ICD9: 790.29, ICD10: R73.9 recheck - HGB A1C 4. Simple chronic bronchitis (HCC) - ICD9: 491.0, ICD10: J41.0 Stable, continue meds 5. Gastroesophageal reflux disease without esophagitis - ICD9: 530.81, ICD10: K21.9 Stable, continue meds 6. Status post reverse arthroplasty of left shoulder - ICD9: V43.61, ICD10: Z96.612 Very happy with results, able to play golf. 7. Restless legs - ICD9: 333.94, ICD10: G25.81 Controlled with ropinerole: ocntinue 8. Urinary tract infection without hematuria, site unspecified - ICD9: 599.0, ICD10: N39.0 Uncertain. States last specimen was negative for leuk but + culture. - Send urine for culture - Patient education for prevention given - UA DIP, URINE (POC) - URINE CULTURE 9. Lumbar sprain, initial encounter - ICD9: 847.2, ICD10: S33.5XXA Mechanical low back pain Likely from golfing. - TIZANIDINE 2 MG CAPSULE 10. Vitamin D deficiency - ICD9: 268.9, ICD10: E55.9 recheck - VITAMIN D 25 HYDROXY Will notify results. Tee Montgomery PA-C documented in this encounter [facility] 09-18-2022 History of Present illness Narrative Patient presents with: Trauma: Cut right arm x 4 hrs HPI: Cut her right arm on a metal door getting off an airplane today. Felt Hanger bandaged it because it was bleeding. MEDICATIONS: amLODIPine (NORVASC) 5 mg tablet Take 1 tablet by mouth once daily. rOPINIRole (REQUIP) 1 mg tablet Take 1 tablet by mouth daily at bedtime. atorvastatin (LIPITOR) 20 mg tablet TAKE 1 TABLET DAILY AT BEDTIME FOR CHOLESTEROL budesonide-formoterol (SYMBICORT) 160-4.5 mcg/actuation inhaler Inhale 2 Puffs as instructed twice daily. lisinopril (ZESTRIL, PRINIVIL) 20 mg tablet Take 1 tablet by mouth once daily. melatonin 10 mg cap Take 10 mg by mouth. ESOMEPRAZOLE MAGNESIUM (NEXIUM 24HR ORAL) Take by mouth. ipratropium bromide (ATROVENT) 42 mcg (0.06 %) nasal spray Use 2 Sprays in the nose twice daily at 6AM and 9PM. ALLERGIES: ALLERGIES Allergen Reactions Ciprofloxacin Other: See Comments Ankle and achilles pain Seasonal Allergies Intolerance VITALS: BP 180/92 Pulse 79 Temp 36.2 C (97.2 F) Resp 20 Wt 67.5 kg (148 lb 12.8 oz) SpO2 96% BMI 26.36 kg/m PE: Pleasant, in no acute distress. Arm: right. 5cm mostly linear skin tear dorsal mid forearm. The wound was cleansed with Hibiclens and water. Wound well approximated with Steri-Strips and dressed with nonadhesive pad and gauze wrap. ASSESSMENT/PLAN: 1. Skin tear of forearm without complication, right, initial encounter - ICD9: 881.00, ICD10: S51.811A (primary diagnosis) Wound care discussed. Dressing change as needed. Avoid antibiotic ointment. Allow Steri-Strips after 1 week. Follow up with sign of infection. 2. Hypertension, essential - ICD9: 401.9, ICD10: I10 152/84 on recheck. Gerson Shirley MD documented in this encounter [facility] 09-03-2022 History of Present illness Narrative INSIGHT CDM TELEPHONIC OUTREACH Provider Action/FYI: COPD Contact made with patient: No - Left message Hello my name is Sergei Lauren RN your [employer]eral Home Location Manager from the [facility] I am calling today for your bi-weekly check in. I am sorry I missed your call. I will reach out to you again tomorrow. (if the third call I will reach out to you again next week) Enter next patient outreach date for the following business day using the Track Pt Outreach. End outreach. documented in this encounter [facility] 08-08-2022 Instructions Angelika Chavez MD - 08/08/2022 11:11 AM EST Start taking Zyrtec documented in this encounter [facility] 08-08-2022 History of Present illness Narrative Images from the original note were not included. . Respiratory [place] Note Patient name: Marshall Wu PCP: Bang Holland MD CC: follow-up COPD HPI: Marshall Wu 87 year old female former 40 pack year smoker, quitting in 1986 with PMH significant for mild COPD, , HTN, GERD, HLD, melanoma, breast cancer, former patient of Dr. Adorno, new to me. Current therapy with Symbicort and as needed albuterol. Only using Symbicort once daily. She states she was doing well until this past few months. Symptoms similar to her allergies which usually are triggered in the spring and fall. Takes Zyrtec during allergy season. Current issues with post nasal drip, throat clearing and globus sensation. Seen by ENT who prescribed Atrovent nasal spray. She had some associated increased SOB so started taking Symbicort twice daily. No wheezing, sputum production or chest pain. No nocturnal awakenings. Also having issues with a sore spot in her posterior pharynx on the right. Positive GERD symptoms, just restarted Nexium. Since YVROSE, has new diagnosis of breast cancer s/p lumpectomy, no need for XRT. DATA: PFT 09/2021: Mild obstruction Labs: 09/2021: FINAL DIAGNOSIS A. Breast, right, lumpectomy at 11:00 2 cm from the nipple: - High-grade ductal carcinoma in situ, solid type with comedonecrosis involving widely scattered ducts within the lumpectomy specimen. DCIS approaches to within less than 2 mm of all of the surgical resection margins. See comment A. B. Breast, right, lumpectomy: - High-grade ductal carcinoma in situ, solid type with comedonecrosis. DCIS approaches to within less than 2 mm of the lateral, inferior, and medial resection margins. See comment B. Imaging / Diagnostic Studies: No recent chest imaging PAST MEDICAL HISTORY Diagnosis Date Aortic sclerosis 2012 Found on echo Arthritis of foot Bilateral heel spurs. 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 amLODIPine (NORVASC) 5 mg tablet Take 1 tablet by mouth once daily. rOPINIRole (REQUIP) 1 mg tablet Take 1 tablet by mouth daily at bedtime. atorvastatin (LIPITOR) 20 mg tablet TAKE 1 TABLET DAILY AT BEDTIME FOR CHOLESTEROL budesonide-formoterol (SYMBICORT) 160-4.5 mcg/actuation inhaler Inhale 2 Puffs as instructed twice daily. lisinopril (ZESTRIL, PRINIVIL) 20 mg tablet Take 1 tablet by mouth once daily. melatonin 10 mg cap Take 10 mg by mouth. ESOMEPRAZOLE MAGNESIUM (NEXIUM 24HR ORAL) Take by mouth. Social History Tobacco Use Smoking status: Former Packs/day: 1.30 Years: 32.00 Pack years: 41.60 Types: Cigarettes Start date: 03/10/1955 Quit date: 07/14/1986 Years since quittin.0 Smokeless tobacco: Never Tobacco comments: Parents did not smoke in childhood home. Spouse non smoker. Vaping Use Vaping Use: Never used Substance Use Topics Alcohol use: Yes Comment: Occasional. Drug use: No FAMILY HISTORY Problem Relation Age of Onset Alzheimer's Disease Mother Arthritis Father Stroke Father Breast Cancer Maternal Aunt other (lung cancer) Maternal Aunt Prostate Cancer Son Stroke Other Fatal. Brother in law. PAST SURGICAL HISTORY Procedure Laterality Date ARTHROPLASTY GLENOHUMRL JT HEMIARTHROPLASTY Left 03/2022 Arthroplasty, shoulder BREAST LUMPECTOMY HX Right 09/13/2021 U/S guided open right breast lumpectomy BREAST LUMPECTOMY HX Right 09/2021 COLONOSCOPY FLX DX W/COLLJ SPEC WHEN PFRMD 03/26/2007 Colonoscopy DILATION & CURETTAGE DX&/THER NONOBSTETRIC Dilation & curettage LAPAROSCOPY SURG CHOLECYSTECTOMY 1979 Cholecystectomy, lap SKIN BIOPSY HX PMH, Social history, family history and surgical history reviewed and updated in EMR REVIEW OF SYSTEMS: CONSTITUTIONAL: No fevers, chills, nightsweats, unintended weight loss HEENT: No headaches. Positive nasal congestion/sinus symptoms, allergy problems. CARDIOVASCULAR: No chest pain, dyspnea, palpitations, orthopnea, edema. PULM: See HPI GI: Positive reflux. No dysphagia INTEGUMENTARY: No new skin changes or rashes PHYSICAL EXAMINATION: BP 130/70 Pulse 94 Wt 150 lb (68.0kg) SpO2 94% General Appearance: Elderly female, NAD Skin: Skin color, texture, turgor normal, no suspicious rashes or lesions. Head: Normocephalic, no masses, lesions, tenderness or abnormalities. Eyes: Sclera, conjunctiva normal Oropharynx: No oral lesions, no erythema, no cobblestoning Neck: No JVD,no masses, no adeopathy Lungs: Not labored, normal to percussion, no wheezes or crackles Heart: RRR, no murmur Extremities: No edema, no clubbing Assessment/Plan: Mild COPD -Continue Symbicort and as needed albuterol -Spirometry at next visit Post nasal drip -Start Zyrtec. May need to consider Singulair -Continue Atrovent GERD -Continue Nexium Angelika Chavez MD Respiratory [place] documented in this encounter [facility] 08-05-2022 Discharge summary Note Date/Time August 05, 2022 12:32pm [facility] Physical Therapy [facility] [address] [place] [address] [address] [place] [address] / REHABILITATION SERVICES DISCHARGE SUMMARY MR#: [id number] Acct: [id number] Name: MARSHALL WU Rep #: [id number] : 1935 87 From: Angel Salas PT, ATC Referring DrStella: Status: REG RCR Insurance: MEDICARE PART A B [employer] It has been my pleasure to treat MARSHALL WU referred by BELA ESPANA,with the diagnosis of L TSA 04/08/22 for a total of 32 visit(s). Discharge Date: Please see the following information for a summary of their discharge status. Subjective: Pt reports she feels ready for discharge L shoulder Pain Intensity (Out of 10): 0 % Improvement: 80 Objective/Function: L shoulder pain ranges from 0-6/10. L shoulder ROM: flex= 110, abd= 95, ER= 20. L shoulder MMT: flex= 6, abd= 13, ER= 4, IR= 15 #F. Quickdash 19 Goal 1:: ST: pain no greater than 3/10 Goal Progress: Progressing Goal 2:: PROM 130 flexion, 125 abduction and 40 ext rotation as allowed Goal Progress: Progressing Goal 3:: LT: AROM to 130 to help with ADLs. Goal Progress: Progressing Goal 4:: quick dash score 20 or better Goal Progress: Progressing Goal 5:: Plan to return to golf Goal Progress: Progressing Plan: Discharge to [facility] If there are questions or concerns regarding this patient's physical therapy, please feel free to call me at [phone]. Thank you for the referral of thispatient. Sincerely, Angel Salas, PT, ATC Balance/Gait/Functional tests - Balance/Special Test Scores Quick DASH Score: 18.1800 <Electronically signed by Angel Salas PT, ATC> 08/05/22 1232 CC: Dr. Bang Holland MD; BELA ESPANA ~ [facility] Signed [facility] Work Phone: 1(309) 120-213801-20-2023 History of Present illness Narrative* Sergei Lauren RN - 08/02/2022 9:29 AM EST INSIGHT CD TELEPHONIC OUTREACH Provider Action/FYI: COPD Having some sinus congestion- seen by ENT given some nasal spray and seems to be helping. Drug store was out of the sinus medication she normally takes so purchased Sudafed (aware of effecton B/P). Last B/p 150/60. Contact made with patient: Yes Patient identified by name and . Discussed care with patient It s nice talking to you again. As a reminder, this is our bi-weekly check-in where I will be asking you questions about your health. This will only take a few minutes of your time. Is this a good time? Yes Symptoms What Chronic Disease(s) does the patient have: COPD Do you check your blood pressures at home? Yes, Enter readings: 150/60 Do you have new or worse shortness of breath with activity? No Do you have new or worsening cough? No Do you have new or worsening wheezing? No Do you need to use your rescue (Albuterol) inhaler or nebulizer more often than normal? No Are you having any other symptoms that your PCP needs to know about? No Symptoms: none Symptom Escalation LEE Education Ordered -: No The patient required an escalation for symptom(s)? No Medications Do you have any questions about taking your medication or which medications you should be on? No Do you need any medication refills at this time, including any of the medications you might take only when needed? No Social We would like to make sure you have what you need so that your basic needs are met- including your personal safety, food, housing and medications? Would you like to speak with a social work bakery team member to help give you support for any of these needs? No It can be normal to feel anxious or down during a time like this. Would you like to talk to a mental health professional about how you have been feeling? No Closing Thank you for taking the time to talk with me today. We want to work with you to ensure that we arekeeping your medical condition(s) well-controlled and to keep you healthy and out of the doctor's office or hospital. It s also not too late for me to sign you up for automated weekly questionnaires through [employer]. This is an easy way for us to stay connected each week. Are you interested? No, I understand. We can always sign you up in the future if you change your mind. Just as a reminder, will continue to call you every other week to check in on your health. Our calls should take 10-15 minutes or less. Remember, if you have concerns in between our calls, please call your PCP's office right away. Thank you. Enter next patient outreach date for two weeks on the same day of the week as today in the Track PtOutreach and End outreach. [facility] History of Present illness Narrative* Sergei Lauren RN - 07/02/2022 8:44 AM EST INSIGHT CDM TELEPHONIC OUTREACH Provider Action/FYI: Follow up B/p's COPD Contact made with patient: No - Left message Jimlety my name is Sergei Lauren RN your [employer]eral [employer] Location Manager from the [facility] I am calling today for your bi-weekly check in. I am sorry I missed your call. I will reach out to you again tomorrow. (if the third call I will reach out to you again next week) Enter next patient outreach date forthe following using the Track Pt Outreach. End outreach. documented [facility] this [facility] History of Present illness Narrative* Tee Montgomery PA-C - 06/17/2022 10:40 AM EST 87 year old female with c/o recheck on BP with addition amlodipine. Almost a headache, feeling a little low. Some loose stools. HTN: Current meds: Amlodipine 5mg daily Lisinopril 20mg daily Patient is compliant with meds Yes Monitors bp at home: Yes. If yes, readings: 150-160/ 70-90s, better after replaced battery Denies side effects: Yes. Chest pain: No. Had hiatal hernia pain, relieved with a series of burps. Dyspnea: No. Edema: a little swelling lower legs. Not bothersome Palpitations: No. Syncope: No. Headache: No. Dizziness: No. Last 3 Encounter BP Readings: Date: BP: 05/14/2022 156/68 04/15/2022 146/68 03/26/2022 130/72 Last 2 Encounter Wt Readings: Date: Wt: 04/15/2022 68.5 kg (151 lb) 03/26/2022 68.5 kg (151 lb) Left shoulder progressing. Glad she had surgery. Still working on strength. Good ROM HISTORIES FAMILY HISTORY Problem Relation Age of Onset Alzheimer's Disease Mother Arthritis Father Stroke Father Breast Cancer Maternal Aunt other (lung cancer) Maternal Aunt Prostate Cancer Son Stroke Other Fatal. Brother in law. PAST MEDICAL HISTORY Diagnosis Date Aortic sclerosis 2012 Found on echo Arthritis of foot Bilateral heel spurs. 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 PAST SURGICAL HISTORY Procedure Laterality Date ARTHROPLASTY GLENOHUMRL JT HEMIARTHROPLASTY Arthroplasty, shoulder BREAST LUMPECTOMY HX Right 09/13/2021 U/S guided open right breast lumpectomy BREAST LUMPECTOMY HX Right 09/2021 COLONOSCOPY FLX DX W/COLLJ SPEC WHEN PFRMD 03/26/2007 Colonoscopy DILATION & CURETTAGE DX&/THER NONOBSTETRIC Dilation & curettage LAPAROSCOPY SURG CHOLECYSTECTOMY 1979 Cholecystectomy, lap SKIN BIOPSY HX Social History Tobacco Use Smoking status: Former Packs/day: 1.30 Years: 32.00 Pack years: 41.60 Types: Cigarettes Start date: 03/10/1955 Quit date: 07/14/1986 Years since quittin.9 Smokeless tobacco: Never Tobacco comments: Parents did not smoke in childhood home. Spouse non smoker. Vaping Use Vaping Use: Never used Substance Use Topics Alcohol use: Yes Comment: Occasional. 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 90 tablet 1 oxyCODONE-acetaminophen (PERCOCET) 5-325 mg tablet TAKE 1-2 TABLETS BY MOUTH EVERY FOUR TO SIX HOURS NEEDED FOR PAIN aspirin, enteric coated (ASPIRIN, ENTERIC COATED) 81 mg EC tablet Take 81 mg by mouth once daily. Docusate Sodium (STOOL SOFTENER) 100 mg tab Take by mouth. rOPINIRole (REQUIP) 1 mg tablet Take 1 tablet by mouth daily at bedtime. 90 tablet 1 atorvastatin (LIPITOR) 20 mg tablet TAKE 1 TABLET DAILY AT BEDTIME FOR CHOLESTEROL 90 tablet 3 budesonide-formoterol (SYMBICORT) 160-4.5 mcg/actuation inhaler Inhale 2 Puffs as instructed twice daily. 3 Each 3 lisinopril (ZESTRIL, PRINIVIL) 20 mg tablet Take 1 tablet by mouth once daily. 90 tablet 1 melatonin 10 mg cap Take 10 mg by mouth. ESOMEPRAZOLE MAGNESIUM (NEXIUM 24HR ORAL) Take by mouth. No current facility-administered medications for this visit. SHINGRIX VACCINE(1 of 2) Never done DTAP,TDAP,TD(1 - Tdap) due on 02/05/2016 DEPRESSION ASSESSMENT Never done COVID-19 VACCINE(5 - Booster for Moderna series) due on 12/27/2021 EXAM: BP 128/64 Pulse 85 Temp 36.2 C (97.1 F) (Right Tympanic) Resp 16 Wt 68.5 kg (151 lb) CgL803% BMI 26.75 kg/m Pleasant adult woman in no acute distress. Alert and oriented all spheres. Normal affect and cognition. Speech normal. No deficits to learning or comprehension. Skin warm, dry, pink to lips and nailbeds. Normal turgor. Respirations regular and unlabored. Chest is normal shape. Lungs are clear to all paul with good air exchange through out. HRRR without murmur or gallop. No lifts, heaves, or rubs. Extrem: no clubbing or cyanosis. Edema: none. Extremities are warm and pink with prompt capillary refill. ASSESSMENT/PLAN: 1. Essential hypertension, benign - ICD9: 401.1, ICD10: I10 - good control - Continue current medication(s) - Recommended regular aerobic exercise. - Recommend home blood pressure monitoring, to bring results in on next visit - Goal of BP <130/80 Tee Montgomery PA-C documented [facility] History of Present illness Narrative* Sergei Lauren RN - 05/30/2022 1:20 PM EST INSIGHT CD TELEPHONIC OUTREACH Provider Action/FYI: COPD Recently experiencing elevated B/Ps after her shoulder surgery. Had B/P check 05/14 and amlodipine increased from 2.5 mg to 5 mg. Patient taking increased dose but has not noted a big change in home B/p's Range from 130-140's systolic. No missed doses Advised to continue to log and bring to follow up visit on 06/17 Contact made with patient: Yes Patient identified by name and . Discussed care with patient It s nice talking to you again. As a reminder, this is our bi-weekly check-in where I will be asking you questions about your health. This will only take a few minutes of your time. Is this a good time? Yes Symptoms What Chronic Disease(s) does the patient have: COPD Do you check your blood pressures at home? Yes, Enter readings: 130's-140's Do you have new or worse shortness of breath with activity? No Do you have new or worsening cough? No Do you have new or worsening wheezing? No Do you need to use your rescue (Albuterol) inhaler or nebulizer more often than normal? No Are you having any other symptoms that your PCP needs to know about? No Symptom Escalation The patient required an escalation for symptom(s)? No Medications Do you have any questions about taking your medication or which medications you should be on? No Do you need any medication refills at this time, including any of the medications you might take only when needed? No Social We would like to make sure you have what you need so that your basic needs are met- including your personal safety, food, housing and medications? Would you like to speak with a social work bakery team member to help give you support for any of these needs? No It can be normal to feel anxious or down during a time like this. Would you like to talk to a mental health professional about how you have been feeling? No Closing Thank you for taking the time to talk with me today. We want to work with you to ensure that we arekeeping your medical condition(s) well-controlled and to keep you healthy and out of the doctor's office or hospital. It s also not too late for me to sign you up for automated weekly questionnaires through [employer]. This is an easy way for us to stay connected each week. Are you interested? No, I understand. We can always sign you up in the future if you change your mind. Just as a reminder, will continue to call you every other week to check in on your health. Our calls should take 10-15 minutes or less. Remember, if you have concerns in between our calls, please call your PCP's office right away. Thank you. Enter next patient outreach date for two weeks on the same day of the week as today in the Track PtOutreach and End outreach. * Sergei Lauren RN - 05/30/2022 8:40 AM EST INSIGHT CDM TELEPHONIC OUTREACH Provider Action/FYI: Contact made with patient: No - Left message Dasha my name is Sergei Lauren RN your [employer]eral [employer] Location Manager [facility] the [facility] I am calling today for your bi-weekly check in. I am sorry I missed your call. I will reach out to you again tomorrow. (if the third call I will reach out to you again next week) Enter next patient outreach date forthe following using the Track Pt Outreach. End outreach. documented in this encounterAs[facility] Miscellaneous Notes* Telephone Encounter - Jamie Bustamante LPN - 05/14/2022 12:09 PM EDT Pt notified. She verbalized understanding. Pt would like rx to go to mail away pharmacy. Rx pendingto mail away pharm. Jamie Bustamante LPN * Telephone Encounter - Bang Holland MD - 05/14/2022 11:08 AM EDT Bp still borderline. Is only on minimal amount of amlodipine. Increase to 5 mg a day and follow up in one month. Call if any issues. * Telephone Encounter - Josiane Lynn LPN - 05/14/2022 10:05 AM EDT Manual Readin/68 Pulse: 90 BP Adam average: 145/66 P: 89 Repeat BP Check: 146/68 P87 #1 143/65 P86 #2 145/68 P87 #3 145/68 P86 #4 145/65 P103 #5 145/63 P87 #6 Reason for blood pressure check - Last BP elevated Patient is: Taking medication as prescribed Yes Took medication today Yes If no, date medication last taken N/A Experiencing side effects No BP was elevated at last appt 04/15/22. No BP medication changes were made at that time. Taking all medications as prescribed. Denies any chest pain, shortness of breath, dizziness, or headaches. Dailycaffeine use. Past personal history of tobacco use; no current exposure. Alert and oriented. Pt has been identified by name and birthdate: Yes Allergies reviewed: Yes Latex allergy: no. Medication - prescribed and OTC reviewed and updated: Yes Do you need any prescription refills prior to your next visit: No Health Maintenance: Reviewed and not up to date and provider notified Patient advised that she would be contacted after review by PCP. Josiane Lynn LPN documented in this encounterAs[facility] History of Present illness Narrative* Josiane Lynn LPN - 05/14/2022 10:03 AM EDT Manual Readin/68 Pulse: 90 BP Adam average: 145/66 P: 89 Repeat BP Check: 146/68 P87 #1 143/65 P86 #2 145/68 P87 #3 145/68 P86 #4 145/65 P103 #5 145/63 P87 #6 Reason for blood pressure check - Last BP elevated Patient is: Taking medication as prescribed Yes Took medication today Yes If no, date medication last taken N/A Experiencing side effects No BP was elevated at last appt 04/15/22. No BP medication changes were made at that time. Taking all medications as prescribed. Denies any chest pain, shortness of breath, dizziness, or headaches. Dailycaffeine use. Past personal history of tobacco use; no current exposure. Alert and oriented. Pt has been identified by name and birthdate: Yes Allergies reviewed: Yes Latex allergy: no. Medication - prescribed and OTC reviewed and updated: Yes Do you need any prescription refills prior to your next visit: No Health Maintenance: Reviewed and not up to date and provider notified Patient advised that she would be contacted after review by PCP. Pt to also receive flu vaccine. Josiane Lynn LPN documented in this encounterAs[facility] History of Present illness Narrative* Calista Vee RN - 04/25/2022 12:38 PM EDT INSIGHT CDM TELEPHONIC OUTREACH Provider Action/FYI: Contact made with patient: No - Unable to leave message Entered next patient outreach date for the following , if third call please enter next outreach date for one week in the Track Pt. Outreach - End Outreach documented in this encounterAs[facility]10[facility] Instructions* Patient Instructions* Tee Montgomery PA-C - 04/15/2022 11:47 AM EDT Tegaderm as directed over the left upper arm wound. documented in this encounterAs[facility]10[facility] History of Present illness Narrative* Tee Montgomery PA-C - 04/15/2022 11:43 AM EDT 87 year old female with here for management of skin tear which occurred with removal of her dressing status post reverse arthroplasty of the left shoulder, Dr. Noe Doyle. This resulted in a triangular-shaped wound which has been managed with Tegaderm dressing. Presents for dressing change but current dressing is off. States that she feels she was not told how significant the discomfort was going to be from the surgery. Feels she is managing with help of family. Hs percocet RX but hasn't taken. Using Tylenol. Needs refills. Ropinirole recently increased due to lack of efficacy, sx controlled currently BP controlled: no headache, chest pain, lightheadedness. Heartburn and reflux controlled on esomeprazole as long as she takes it. If mises a day may have sx. No black or tarry stools. Notes told to increase fiber including popcorn, seed, and nuts. Compliant with symbicort which helps breathing No use of rescue. No SOB, cough. Taken deep breaths as instructed for recovery. Hemoglobin A1C (%) Date Value 01/27/2021 5.8 02/02/2020 5.6 ) CMP Latest Ref Rng & Units 02/28/2020 01/27/2021 08/02/2021 SODIUM 136 - 144 mmol/L 143 138 141 POTASSIUM 3.7 - 5.1 mmol/L 3.9 4.2 3.8 CHLORIDE 97 - 105 mmol/L 103 101 102 CO2 22 - 30 mmol/L 30 26 29 GLUCOSE 74 - 99 mg/dL 115(H) 92 88 BUN 7 - 21 mg/dL 15 17 13 CREATININE 0.58 - 0.96 mg/dL 0.69 0.66 0.65 EGFR-ALL OTHER RACES . >60 >60 >60 EGFR- - >60 >60 >60 PROTEIN, TOTAL 6.3 - 8.0 g/dL - 5.6(L) 6.5 ALBUMIN 3.9 - 4.9 g/dL - 4.1 4.1 CALCIUM, TOTAL 8.5 - 10.2 mg/dL 9.4 9.4 9.7 BILIRUBIN, TOTAL 0.2 - 1.3 mg/dL - 0.6 0.7 AST 13 - 35 U/L - 19 17 ALT 7 - 38 U/L - 15 13 ALKALINE PHOSPHATASE 34 - 123 U/L - 103 101 HISTORIES FAMILY HISTORY Problem Relation Age of Onset Alzheimer's Disease Mother Arthritis Father Stroke Father Breast Cancer Maternal Aunt other (lung cancer) Maternal Aunt Prostate Cancer Son Stroke Other Fatal. Brother in law. PAST MEDICAL HISTORY Diagnosis Date Aortic sclerosis 2012 Found on echo Arthritis of foot Bilateral heel spurs. 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 PAST SURGICAL HISTORY Procedure Laterality Date ARTHROPLASTY GLENOHUMRL JT HEMIARTHROPLASTY Arthroplasty, shoulder BREAST LUMPECTOMY HX Right 09/13/2021 U/S guided open right breast lumpectomy BREAST LUMPECTOMY HX Right 09/2021 COLONOSCOPY FLX DX W/COLLJ SPEC WHEN PFRMD 03/26/2007 Colonoscopy DILATION & CURETTAGE DX&/THER NONOBSTETRIC Dilation & curettage LAPAROSCOPY SURG CHOLECYSTECTOMY 1979 Cholecystectomy, lap SKIN BIOPSY HX Social History Tobacco Use Smoking status: Former Packs/day: 1.30 Years: 32.00 Pack years: 41.60 Types: Cigarettes Start date: 03/10/1955 Quit date: 07/14/1986 Years since quittin.7 Smokeless tobacco: Never Tobacco comments: Parents did not smoke in childhood home. Spouse non smoker. Vaping Use Vaping Use: Never used Substance Use Topics Alcohol use: Yes Comment: Occasional. 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 Docusate Sodium (STOOL SOFTENER) 100 mg tab Take by mouth. rOPINIRole (REQUIP) 1 mg tablet Take 1 tablet by mouth daily at bedtime. atorvastatin (LIPITOR) 20 mg tablet TAKE 1 TABLET DAILY AT BEDTIME FOR CHOLESTEROL 90 tablet 3 lisinopril (ZESTRIL, PRINIVIL) 20 mg tablet Take 1 tablet by mouth once daily. 90 tablet 1 melatonin 10 mg cap Take 10 mg by mouth. amLODIPine (NORVASC) 2.5 mg tablet Take 1 tablet by mouth once daily. 90 tablet 3 budesonide-formoterol (SYMBICORT) 160-4.5 mcg/actuation inhaler Inhale 2 Puffs as instructed twice daily. 3 Inhaler 4 ESOMEPRAZOLE MAGNESIUM (NEXIUM 24HR ORAL) Take by mouth. No current facility-administered medications for this visit. SHINGRIX VACCINE(1 of 2) Never done DTAP,TDAP,TD(1 - Tdap) due on 02/05/2016 DEPRESSION ASSESSMENT Never done COVID-19 VACCINE(5 - Booster for Moderna series) due on 12/27/2021 INFLUENZA(1) due on 03/14/2022 EXAM: BP 146/68 Pulse 93 Temp 36.4 C (97.5 F) (Tympanic) Resp 20 Wt 68.5 kg (151 lb) SpO2 95% BMI 26.75 kg/m Pleasant well appearing adult woman in no acute distress. Alert and oriented all spheres. Normal affect and cognition. Speech normal. No deficits to learning or comprehension. Skin warm, dry, pink to lips and nailbeds. Normal turgor. Wound measures approximately 5.2 cm x 4 x.32cm with bright red tissue. No current bruising, relatively dry. Respirations regular and unlabored. Extrem: no clubbing or cyanosis. Edema: none. Extremities are warm and pink with prompt capillary refill. ASSESSMENT/PLAN: 1. Skin tear of left upper arm without complication, sequela - ICD9: 906.1, ICD10: S41.112S (primary diagnosis) Advised to get Tegaderm dressings at pharmacy. Reviewed application procedure but can come back to demonstrate if needed. Dressing can stay on up to 5 days. F/u prn 2. Gastroesophageal reflux disease without esophagitis - ICD9: 530.81, ICD10: K21.9 Controlled on current medication 3. Simple chronic bronchitis (HCC) - ICD9: 491.0, ICD10: J41.0 refill - BUDESONIDE-FORMOTEROL HFA 160 MCG-4.5 MCG/ACTUATION AEROSOL INHALER 4. Essential hypertension, benign - ICD9: 401.1, ICD10: I10 - good control - Continue current medication(s) - Recommended regular aerobic exercise. - Recommend home blood pressure monitoring, to bring results in on next visit - Goal of BP <130/80 - AMLODIPINE 2.5 MG TABLET 5. Hyperglycemia - ICD9: 790.29, ICD10: R73.9 Stable, hgba1c prediabetic. Discussed need to follow 6. Mixed hyperlipidemia - ICD9: 272.2, ICD10: E78.2 - good control - Continue current medication. 7. Status post reverse arthroplasty of left shoulder - ICD9: V43.61, ICD10: Z96.612 - OXYCODONE-ACETAMINOPHEN 5 MG-325 MG TABLET - DOCUSATE SODIUM 100 MG TABLET Tee Montgomery PA-C 6:25 PM called and was able to get tegaderm. Took a walk outside and that help her feel better. Tee Montgomery PA-C documented in this encounterAsht[facility]09-[facility] History of Present illness Narrative* Calista Vee RN - 04/04/2022 1:18 PM EDT [facility] TELEPHONIC OUTREACH Provider Action/I: Patient reports she is doing good, scheduled for shoulder surgery this coming 04/08/22. Patient had no questions, concerns, needs at this time. Contact made with patient: Yes Patient identified by name and . Discussed care with patient It s nice talking to you again. As a reminder, this is our bi-weekly check-in where I will be asking you questions about your health. This will only take a few minutes of your time. Is this a good time? Yes Symptoms What Chronic Disease(s) does the patient have: COPD Do you check your blood pressures at home? No Do you have new or worse shortness of breath with activity? No Do you have new or worsening cough? No Do you have new or worsening wheezing? No Do you need to use your rescue (Albuterol) inhaler or nebulizer more often than normal? No Are you having any other symptoms that your PCP needs to know about? No Symptom Escalation The patient required an escalation for symptom(s)? No Medications Do you have any questions about taking your medication or which medications you should be on? No Do you need any medication refills at this time, including any of the medications you might take only when needed? No Social We would like to make sure you have what you need so that your basic needs are met- including your personal safety, food, housing and medications? Would you like to speak with a social work bakery team member to help give you support for any of these needs? No It can be normal to feel anxious or down during a time like this. Would you like to talk to a mental health professional about how you have been feeling? No Closing Thank you for taking the time to talk with me today. We want to work with you to ensure that we arekeeping your medical condition(s) well-controlled and to keep you healthy and out of the doctor's office or hospital. It s also not too late for me to sign you up for automated weekly questionnaires through [employer]. This is an easy way for us to stay connected each week. Are you interested? No, I understand. We can always sign you up in the future if you change your mind. Just as a reminder, will continue to call you every other week to check in on your health. Our calls should take 10-15 minutes or less. Remember, if you have concerns in between our calls, please call your PCP's office right away. Thank you. Enter next patient outreach date for two weeks on the same day of the week as today in the Track PtOutreach and End outreach. documented in this encounterAshtabula [facility]09-16-2022 Miscellaneous Notes* Telephone Encounter - Jamie Bustamante LPN - 03/29/2022 2:17 PM EDT [facility] 11/26/21 NOV no upcoming appt * Telephone Encounter - Christina Kim - 03/29/2022 2:15 PM EDT Patient has been identified by name and date of : Yes Requested Prescriptions Pending Prescriptions Disp Refills atorvastatin (LIPITOR) 20 mg tablet 90 tablet 3 Sig: TAKE 1 TABLET DAILY AT BEDTIME FOR CHOLESTEROL RX INSTRUCTIONS: Pharmacy initiated this request. No need to notify patient. 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 She does not want radiation therapy and prefers to be followed with short term interval breast imaging. I am agreeableto this as she is 87 years of age and post operative radiation is not absolute according to NCCN guidelies. Cleo Cannon MD documented in this encounterAshtabula [facility] Hospital09-13-2022 History of Present illness Narrative* RT Phill(R) - 03/26/2022 8:30 AM EDT Radiology Service Progress Note PATIENT NAME: Marshall Wu DATE OF SERVICE: March 26, 2022 TIME: 8:31 AM PATIENT IDENTITY VERIFICATION COMPLETED USING TWO (2) IDENTIFIERS: Name and Date of confirmedby patient verbally. FALL SCREENING: Has the patient had 2 falls in the last year or 1 fall with injury or currently using an Ambulatory Assistive Device (Walker, Cane, Wheelchair, Crutches, etc.)? No PATIENT GENDER DATA: Female. status: : No status: NO. PATIENT RELEVANT IMPLANT DATA REVIEWED: Not Applicable RADIOLOGY DEPARTMENT: Mammography PERIPHERAL IV DATA: Not applicable SIGNED BY: RT Phill(R) March 26, 2022 8:31 AM documented in this encounterAshtabula [facility] Hospital09-07-2022 Miscellaneous Notes* Telephone Encounter - Ana Guevara RN - 2022 11:34 AM EDT Pt reports she is out of medication, she sent it to mail in pharmacy but will not get it in time. Pt asking for short term supply to be sent to [facility]. Please call Pt once medication has been sent. Patient has been identified by name and date of : Yes Patient phones for refill(s): Requested Prescriptions Pending Prescriptions Disp Refills amLODIPine (NORVASC) 2.5 mg tablet 30 tablet 0 Sig: Take 1 tablet by mouth once daily. Date of last office visit in primary care: 11/26/21 Future visit: none Last 2 Encounter Wt Readings: Date: Wt: 12/14/2021 68 kg (150 lb) 11/26/2021 68 kg (150 lb) Previous labs/tests for medication: Blood Pressure: BUN (mg/dL) Date Value 08/02/2021 13 Sodium (mmol/L) Date Value 08/02/2021 141 Last 1 Encounter BP Readings: Date: BP: 11/26/2021 128/76 Please advise. Thank you. Ana Guevara RN documented in this encounterAshtabula [facility] Hospital09-01-2022 History of Present illness Narrative* Calista Vee RN - 03/14/2022 2:47 PM EDT [facility] TELEPHONIC OUTREACH Provider Action/FYI: Patient reports she is doing good, had no questions, concerns, needs at this time. Contact made with patient: Yes Patient identified by name and . Discussed care with patient It s nice talking to you again. As a reminder, this is our bi-weekly check-in where I will be asking you questions about your health. This will only take a few minutes of your time. Is this a good time? Yes Symptoms What Chronic Disease(s) does the patient have: COPD Do you check your blood pressures at home? No Do you have new or worse shortness of breath with activity? No Do you have new or worsening cough? No Do you have new or worsening wheezing? No Do you need to use your rescue (Albuterol) inhaler or nebulizer more often than normal? No Are you having any other symptoms that your PCP needs to know about? No Symptom Escalation The patient required an escalation for symptom(s)? No Medications Do you have any questions about taking your medication or which medications you should be on? No Do you need any medication refills at this time, including any of the medications you might take only when needed? No Social We would like to make sure you have what you need so that your basic needs are met- including your personal safety, food, housing and medications? Would you like to speak with a social work bakery team member to help give you support for any of these needs? No It can be normal to feel anxious or down during a time like this. Would you like to talk to a mental health professional about how you have been feeling? No Closing Thank you for taking the time to talk with me today. We want to work with you to ensure that we arekeeping your medical condition(s) well-controlled and to keep you healthy and out of the doctor's office or hospital. It s also not too late for me to sign you up for automated weekly questionnaires through [employer]. This is an easy way for us to stay connected each week. Are you interested? No, I understand. We can always sign you up in the future if you change your mind. Just as a reminder, will continue to call you every other week to check in on your health. Our calls should take 10-15 minutes or less. Remember, if you have concerns in between our calls, please call your PCP's office right away. Thank you. Enter next patient outreach date for two weeks on the same day of the week as today in the Track PtOutreach and End outreach. documented in this encounterAshtabula [facility] Hospital08-30-2022 History of Present illness Narrative* Calista Vee RN - 03/12/2022 1:54 PM EDT [facility] TELEPHONIC OUTREACH Provider Action/FYI: Contact made with patient: Yes Patient identified by name and . Discussed care with patient It s nice talking to you again. As a reminder, this is our bi-weekly check-in where I will be asking you questions about your health. This will only take a few minutes of your time. Is this a good time? No - today is not a good time for the patient. Agree on a call back time and connect with the patient then. If applicable, update the next patient outreach date using the Track Pt Outreach. End outreach documented in this encounterAshtabula [facility] Hospital08-23-2022 Miscellaneous Notes* Telephone Encounter - Harika Reveles - 03/05/2022 2:16 PM EDT Noted. Case message. Surgery canceled. Harika Reveles * Telephone Encounter - Consuelo Orozco RN - 03/05/2022 2:13 PM EDT Pt is calling to cancel her shoulder surgery on 04/05/22 documented in this encounterAshtabula General Hospital08-03-2022 Miscellaneous Notes* Telephone Encounter - Nadia Lyons LPN - 02/13/2022 12:45 PM EDT Form taken to Medical Records for pickup by patient. 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 Donna Salas RN * Telephone Encounter - Bang Holland MD - 02/13/2022 9:01 AM EDT Letter printed. documented in this encounterAshtabula [facility] Hospital07-20-2022 History of Present illness Narrative* Calista Vee RN - 01/30/2022 9:31 AM EDT [facility] TELEPHONIC OUTREACH Provider Action/FYI: Pt reports she is doing good, no questions, concerns, needs at this time. Contact made with patient: Yes Patient identified by name and . Discussed care with patient It s nice talking to you again. As a reminder, this is our bi-weekly check-in where I will be asking you questions about your health. This will only take a few minutes of your time. Is this a good time? Yes Symptoms What Chronic Disease(s) does the patient have: COPD Do you check your blood pressures at home? No Do you have new or worse shortness of breath with activity? No Do you have new or worsening cough? No Do you have new or worsening wheezing? No Do you need to use your rescue (Albuterol) inhaler or nebulizer more often than normal? No Are you having any other symptoms that your PCP needs to know about? No Symptom Escalation The patient required an escalation for symptom(s)? No Medications Do you have any questions about taking your medication or which medications you should be on? No Do you need any medication refills at this time, including any of the medications you might take only when needed? No Social We would like to make sure you have what you need so that your basic needs are met- including your personal safety, food, housing and medications? Would you like to speak with a social work bakery team member to help give you support for any of these needs? No It can be normal to feel anxious or down during a time like this. Would you like to talk to a mental health professional about how you have been feeling? No Closing Thank you for taking the time to talk with me today. We want to work with you to ensure that we arekeeping your medical condition(s) well-controlled and to keep you healthy and out of the doctor's office or hospital. It s also not too late for me to sign you up for automated weekly questionnaires through [employer]. This is an easy way for us to stay connected each week. Are you interested? No, I understand. We can always sign you up in the future if you change your mind. Just as a reminder, will continue to call you every other week to check in on your health. Our calls should take 10-15 minutes or less. Remember, if you have concerns in between our calls, please call your PCP's office right away. Thank you. Enter next patient outreach date for two weeks on the same day of the week as today in the Track PtOutreach and End outreach. documented in this encounterAshtabula [facility]07-19-2022 History of Present illness Narrative* Calista Vee RN - 01/29/2022 1:54 PM EDT [facility] TELEPHONIC OUTREACH Provider Action/FYI: Contact made with patient: No - Left message Hello my name is Calista Vee RN your [employer]eral Home Location Manager [facility] the [facility] I am calling today for your bi-weekly check in. I am sorry I missed your call. I will reach out to you again tomorrow. (if the third call I will reach out to you again next week) Enter next patient outreach date for the following business day using the Track Pt Outreach. End outreach. documented in this encounterAshtabula [facility] Hospital07-05-2022 History of Present illness Narrative* Calista Vee RN - 01/15/2022 11:45 AM EDT [facility] TELEPHONIC OUTREACH Provider Action/I: Pt reports she is doing good, scheduled for shoulder surgery with Dr Liu at [facility] end of March. Patient had no questions, concerns, needs at this time. Contact made with patient: Yes Patient identified by name and . Discussed care with patient It s nice talking to you again. As a reminder, this is our bi-weekly check-in where I will be asking you questions about your health. This will only take a few minutes of your time. Is this a good time? Yes Symptoms What Chronic Disease(s) does the patient have: COPD Do you check your blood pressures at home? No Do you have new or worse shortness of breath with activity? No Do you have new or worsening cough? No Do you have new or worsening wheezing? No Do you need to use your rescue (Albuterol) inhaler or nebulizer more often than normal? No Are you having any other symptoms that your PCP needs to know about? No Symptom Escalation The patient required an escalation for symptom(s)? No Medications Do you have any questions about taking your medication or which medications you should be on? No Do you need any medication refills at this time, including any of the medications you might take only when needed? No Social We would like to make sure you have what you need so that your basic needs are met- including your personal safety, food, housing and medications? Would you like to speak with a social work bakery team member to help give you support for any of these needs? No It can be normal to feel anxious or down during a time like this. Would you like to talk to a mental health professional about how you have been feeling? No Closing Thank you for taking the time to talk with me today. We want to work with you to ensure that we arekeeping your medical condition(s) well-controlled and to keep you healthy and out of the doctor's office or hospital. It s also not too late for me to sign you up for automated weekly questionnaires through [employer]. This is an easy way for us to stay connected each week. Are you interested? No, I understand. We can always sign you up in the future if you change your mind. Just as a reminder, will continue to call you every other week to check in on your health. Our calls should take 10-15 minutes or less. Remember, if you have concerns in between our calls, please call your PCP's office right away. Thank you. Enter next patient outreach date for two weeks on the same day of the week as today in the Track PtOutreach and End outreach. documented in this encounterAshtabula [facility] Hospital06-21-2022 History of Present illness Narrative* Calista Vee RN - 01/01/2022 1:04 PM EDT [facility] TELEPHONIC OUTREACH Provider Action/FYI: Contact made with patient: No - Left message Dasha my name is Calista Vee RN your [employer]eral [employer] Location Manager from the [facility] I am calling today for your bi-weekly check in. I am sorry I missed your call. I will reach out to you again in 2 weeks. - End outreach. documented in this encounterAshtabula [facility] Hospital06-20-2022 History of Present illness Narrative* Calista Vee RN - 12/31/2021 11:34 AM EDT [facility] TELEPHONIC OUTREACH Provider Action/FYI: Contact made with patient: No - Left message Dasha my name is Calista Vee RN your Funeral Home Location Manager from the [facility] I am calling today for your bi-weekly check in. I am sorry I missed your call. I will reach out to you again tomorrow. (if the third call I will reach out to you again next week) Enter next patient outreach date for the following day using the Track Pt Outreach. End outreach. documented in this encounterAshtabula [facility] Hospital06-06-2022 Miscellaneous Notes* Telephone Encounter - Sowmya Silva RN - 12/17/2021 3:45 PM EDT Images from the original note were not included. Annemarie Mistry MD You 32 minutes ago (3:10 PM) Yes, she may Called Marshall and advised her re: is able to see her for follow up. Marshall voiced understanding. Transferred her to the scheduling line, to set up her mammogram and follow up visit with Dr. Mistry. Sowmya Silva RN * Telephone Encounter - Sowmya Silva RN - 12/17/2021 2:01 PM EDT Marshall called. She saw Dr. Cleo Cannon at the [facility] on 10/04/[address] Cannon advised that she wanted to see Marshall in 3 months for a recheck and follow-up imaging. Marshall does not want to drive to [place] for a mammogram and office visit. Marshall is asking if she can follow up with . Please advise. Sowmya Silva RN documented in this encounterAshtabula General Hospital06-06-2022 History of Present illness Narrative* Calista Vee RN - 12/17/2021 1:29 PM EDT [facility] TELEPHONIC OUTREACH Provider Action/FYI: Pt reports she is doing good, states she may be having shoulder replacement surgery this March,not sure of date. Pt inquiring if she will still need to see Dr Cannon for mammogram follow up, or can she see Dr Mistry. Advised pt to follow up with Dr Mistry's nurse. Pt agreeable. Pt had no further questions, concerns, needs at this time. Contact made with patient: Yes Patient identified by name and . Discussed care with patient It s nice talking to you again. As a reminder, this is our bi-weekly check-in where I will be asking you questions about your health. This will only take a few minutes of your time. Is this a good time? Yes Symptoms What Chronic Disease(s) does the patient have: COPD Do you check your blood pressures at home? No Do you have new or worse shortness of breath with activity? No Do you have new or worsening cough? No Do you have new or worsening wheezing? No Do you need to use your rescue (Albuterol) inhaler or nebulizer more often than normal? No Are you having any other symptoms that your PCP needs to know about? No Symptom Escalation The patient required an escalation for symptom(s)? No Medications Do you have any questions about taking your medication or which medications you should be on? No Do you need any medication refills at this time, including any of the medications you might take only when needed? No Social We would like to make sure you have what you need so that your basic needs are met- including your personal safety, food, housing and medications? Would you like to speak with a social work bakery team member to help give you support for any of these needs? No It can be normal to feel anxious or down during a time like this. Would you like to talk to a mental health professional about how you have been feeling? No Closing Thank you for taking the time to talk with me today. We want to work with you to ensure that we arekeeping your medical condition(s) well-controlled and to keep you healthy and out of the doctor's office or hospital. It s also not too late for me to sign you up for automated weekly questionnaires through [employer]. This is an easy way for us to stay connected each week. Are you interested? No, I understand. We can always sign you up in the future if you change your mind. Just as a reminder, will continue to call you every other week to check in on your health. Our calls should take 10-15 minutes or less. Remember, if you have concerns in between our calls, please call your PCP's office right away. Thank you. Enter next patient outreach date for two weeks on the same day of the week as today in the Track PtOutreach and End outreach. * Calista Vee RN - 12/17/2021 12:30 PM EDT [facility] TELEPHONIC OUTREACH Provider Action/FYI: Contact made with patient: No - Left message Hello my name is Calista Vee RN your [employer]eral [employer] Location Manager from the [facility] I am calling today for your bi-weekly check in. I am sorry I missed your call. I will reach out to you again tomorrow. (if the third call I will reach out to you again next week) Enter next patient outreach date for the following business day using the Track Pt Outreach. End outreach. documented in this encounterAsht[facility]ula [facility]06-[facility]22 History of Present illness Narrative* Maximilian Sheets MD - 12/17/2021 9:03 AM EDT Images from the original note were not included. ORTHOPAEDIC SHOULDER & ELBOW SERVICE HISTORY & PHYSICAL EXAM REFERRING PROVIDER: Italia Acevedo [address] [facility] [id number] CHIEF COMPLAINT: Left shoulder pain and weakness PAIN EVALUATION 12/14/2021 0929 Pain Level: 0 pain only with movement Pain Location: Shoulder-Left Description: Sharp Duration Units: Years Frequency: Intermittent Intervention/Comfort measure: Cold;Heat;Medication;Exercise;Reposition;Relaxation;Massage tylenol, aleve, voltren gel Comments: PT in the past, cortisone injections in the past Marshall Wu is a healthy 86-year-old woman with ongoing pain and restricted motion of the left shoulder. Has been treated by my partner for osteoarthritis with corticosteroid injection and has had minimal relief with oral medication. PAST MEDICAL HISTORY: PAST MEDICAL HISTORY Diagnosis Date Aortic sclerosis 2012 Found on echo Arthritis of foot Bilateral heel spurs. 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 PAST SURGICAL HISTORY: PAST SURGICAL HISTORY Procedure Laterality Date ARTHROPLASTY GLENOHUMRL JT HEMIARTHROPLASTY Arthroplasty, shoulder BREAST LUMPECTOMY HX Right 09/13/2021 U/S guided open right breast lumpectomy BREAST LUMPECTOMY HX Right 09/2021 COLONOSCOPY FLX DX W/COLLJ SPEC WHEN PFRMD 03/26/2007 Colonoscopy DILATION & CURETTAGE DX&/THER NONOBSTETRIC Dilation & curettage LAPAROSCOPY SURG CHOLECYSTECTOMY 1979 Cholecystectomy, lap SKIN BIOPSY HX SOCIAL HISTORY: Social History Tobacco Use Smoking status: Former Smoker Packs/day: 1.30 Years: 32.00 Pack years: 41.60 Start date: 03/10/1955 Quit date: 07/14/1986 Years since quittin.4 Smokeless tobacco: Never Used Tobacco comment: Parents did not smoke in childhood home. Spouse non smoker. Vaping Use Vaping Use: Never used Substance Use Topics Alcohol use: Yes Comment: Occasional. Drug use: No ALLERGIES: ALLERGIES Allergen Reactions Ciprofloxacin Other: See Comments Ankle and achilles pain Seasonal Allergies Intolerance MEDICATIONS: Current Outpatient Medications on File Prior to Visit Medication Sig melatonin 10 mg cap Take 10 mg by mouth. lisinopril (ZESTRIL, PRINIVIL) 20 mg tablet Take 1 tablet by mouth once daily. amLODIPine (NORVASC) 2.5 mg tablet Take 1 tablet by mouth once daily. atorvastatin (LIPITOR) 20 mg tablet TAKE 1 TABLET DAILY AT BEDTIME FOR CHOLESTEROL budesonide-formoterol (SYMBICORT) 160-4.5 mcg/actuation inhaler Inhale 2 Puffs as instructed twice daily. rOPINIRole (REQUIP) 0.25 mg tablet Take 1 tablet by mouth at bedtime as needed (restless leg). ESOMEPRAZOLE MAGNESIUM (NEXIUM 24HR ORAL) Take by mouth. No current facility-administered medications on file prior to visit. PHYSICAL EXAMINATION: Ht 160 cm (5' 3) Wt 68 kg (150 lb) BMI 26.57 kg/m EXAM: Shoulder Musculoskeletal Exam General Constitutional: appears stated age Labored breathing: no Psychiatric: normal mood and affect and no acute distress Neurological: alert and oriented x3 Skin: intact Lymphadenopathy: none Inspection Inspection - Left Ecchymosis: none Peripheral edema: none Atrophy: none Deformity: none Symmetry: symmetric Masses: none Skin tenting: none Prior incision: none Palpation Palpation - Left Crepitus: no crepitus Increased warmth: none Range of Motion Range of Motion - Left Active ROM: abnormal and pain Passive ROM: abnormal and pain Active forward elevation: 90 Passive forward elevation: 120 Shoulder active abduction: 90 Passive abduction: 90 Active external rotation at side: 60 Passive external rotation at side: 60 Active external rotation in abduction: 80 Passive external rotation in abduction: 80 Active internal rotation in abduction: 60 Passive internal rotation in abduction: 60 Internal rotation: T12 Strength Strength - Left External rotation: 4+/5 Internal rotation: 4+/5 Abduction: 4+/5 Neurovascular Neurovascular - Left Left shoulder nerve sensation is normal. Scapula Scapula - Left Left shoulder scapula is normal. Special Tests Special Tests - Left Rotator Cuff Signs - Left Neer's test: positive Koch test: positive External rotation lag sign: negative Supraspinatus: positive Belly press test: negative Painful arc test: positive Lift-off sign: negative Biceps/ahmet Signs - Left Guilford's test: positive Clicking/popping: negative Speed's test: positive AC Joint Signs - Left Active horizontal adduction pain: negative Single finger test: negative IMAGING: I personally reviewed the radiographs of the left shoulder in the office today. Relevant findings: There is severe osteoarthritis with flattening of the humeral head and elevation consistent with disease involving the rotator cuff MEDICAL DECISION MAKING: Functional Plan: Marshall Wu presents today with severe arthritis and rotator cuff disease ofthe left shoulder. After thorough review of history, examination findings, and imaging, we discussed surgical intervention today which would be reverse total shoulder arthroplasty. I described the procedure in detail as well as the expected healing time of 3-6 months and physical therapy regimen following surgery, likely for much of this time. Informed consent was discussed in detail and signed in the office today. Significant risks of surgery including those of general anesthesia, and those from surgery including infection, nerve injury, bleeding, procedure failure and possible need for repea t procedure were all discussed at the time of consent. No guarantees as to the outcome of surgery were given or implied. Surgery will be scheduled for the next available date. Medical decision making for today's visit was conducted with review of the following data sources: History, exam, imaging REFERRING PHYSICIAN: The patient was referred to me for consultation by the following physician. This consultation note will be sent to the following physician by either mail or electronic medical record. Italia Acevedo [address] [facility] [id number] X-rays next appointment: Yes Gown needed: Yes Maximilian Sheets MD Shoulder & Elbow Surgeon Department of Orthopaedic Surgery [facility] Medical Decision Making documented in this encounterAshtabula [facility]05-10-[facility]22 History of Present illness Narrative* Светлана Chapman - 11/20/2021 12:46 PM EDT POPULATION HEALTH NAVIGATION OUTREACH Action/FYI Scheduled appointment and left message for patient Pt identified by name and : NO Outreach Outcome/Action Unable to reach patient: Left message Reason for Outreach [facility] Payer: Payor: MEDICARE / Plan: MEDICARE A AND B / Product Type: Medicare / Care Gap Reviewed:: Follow-up appointment Reminder: Reminder note to check Health Maintenance for items below Health Maintenance items due: DTAP,TDAP,TD(1 - Tdap) due on 02/05/2016 ADVANCE DIRECTIVE DISCUSSION Never done Message Sent to Practice: No Navigation Signature: Светлана Chapman November 20, 2021 12:46 PM * Calista Vee RN - 11/20/2021 11:58 AM EDT [facility]IGHT [facility] TELEPHONIC OUTREACH Provider Action/FYI: Please contact pt to set up a follow up visit with Jeramie Montgomery CHAD Pt states she will be gone most of the day, okay to leave message on voicemail. Thank you. Pt reports she is doing good, still having issues with her stomach. Per 11/07/21 my chart message, the nurse practitioner did mention possibly ordering labs and an US. Pt states she would like to see Jeramie Montgomery CHAD for a follow up before anything is ordered. Pt had no further questions/concerns/needs at this time. Encounter forwarded for scheduling. Contact made with patient: Yes Patient identified by name and . Discussed care with patient It s nice talking to you again. As a reminder, this is our bi-weekly check-in where I will be asking you questions about your health. This will only take a few minutes of your time. Is this a good time? Yes Symptoms What Chronic Disease(s) does the patient have: COPD Do you check your blood pressures at home? No Do you have new or worse shortness of breath with activity? No Do you have new or worsening cough? No Do you have new or worsening wheezing? No Do you need to use your rescue (Albuterol) inhaler or nebulizer more often than normal? No Are you having any other symptoms that your PCP needs to know about? No Symptom Escalation The patient required an escalation for symptom(s)? No Medications Do you have any questions about taking your medication or which medications you should be on? No Do you need any medication refills at this time, including any of the medications you might take only when needed? No Social We would like to make sure you have what you need so that your basic needs are met- including your personal safety, food, housing and medications? Would you like to speak with a social work bakery team member to help give you support for any of these needs? No It can be normal to feel anxious or down during a time like this. Would you like to talk to a mental health professional about how you have been feeling? No Closing Thank you for taking the time to talk with me today. We want to work with you to ensure that we arekeeping your medical condition(s) well-controlled and to keep you healthy and out of the doctor's office or hospital. It s also not too late for me to sign you up for automated weekly questionnaires through [employer]. This is an easy way for us to stay connected each week. Are you interested? No, I understand. We can always sign you up in the future if you change your mind. Just as a reminder, will continue to call you every other week to check in on your health. Our calls should take 10-15 minutes or less. Remember, if you have concerns in between our calls, please call your PCP's office right away. Thank you. Enter next patient outreach date for two weeks on the same day of the week as today in the Track PtOutreach and End outreach. documented in this encounterAshtabula [facility]05-09-2022 History of Present illness Narrative* Calista Vee RN - 11/19/2021 12:52 PM EDT [facility] TELEPHONIC OUTREACH Provider Action/FYI: Contact made with patient: No - Left message Hello my name is Calista Vee RN your [employer]eral [employer] Location Manager [facility] the [facility] I am calling today for your bi-weekly check in. I am sorry I missed your call. I will reach out to you again tomorrow. (if the third call I will reach out to you again next week) Enter next patient outreach date for the following using the Track Pt Outreach. End outreach. documented in this encounterAshtabula [facility] Hospital04-25-2022 Instructions* Patient Instructions* Cuca Rojas APRN.INDRA - 11/05/2021 2:38 PM EDT 1.) Continue supportive care at home, eat a bland diet and may advance as tolerated. Stay well hydrated. 2.) May use zofran as needed for nausea, place under the tongue and allow to dissolve 15-20 minutes. 3.) May add on a Pepcid 20 mg if needed for heartburn/indigestion symptoms. 4.) Good hand hygiene. 5.) Follow up as needed. GASTROENTERITIS Your exam shows you have gastroenteritis, a common illness. Symptoms can include nausea, vomiting, stomach cramps, diarrhea, and a slight fever. Viral gastroenteritis, usually the most common form clears up in 2-3 days with bed rest and a clear liquid diet. If you are not vomiting, you can start on small sips of water every 20-30 minutes; gradually increase this to 1-2 cups every hour as tolerated. You can then try sodas, Gatorade, broth, and jello if your cramps and nausea are better. Try crackers and dry toast as your symptoms improve. Stay away from milk and dairy products, alcohol, and drugs that upset your stomach for the next week. Call your doctor or the emergency department if you have: persistent vomiting, bloody stools, dehydration, fainting, high fever, increased pain or pain in the abdomen on the right side. Viral gastroenteritis is hard to tell from food poisoning. If other members of your family also become ill, checkwith your doctor or the health department. documented in this encounterAshtabula [facility] Hospital04-25-2022 History of Present illness Narrative* Cuca Rojas APRN.CNP - 11/05/2021 2:20 PM EDT This is a 86 year old female who presents today with: Patient presents with: Abdominal Pain HISTORY OF PRESENT ILLNESS: Marshall Wu is a 86 year old female. Patient presents with: Abdominal Pain Patient of Dr. Holland here in the office for upper abdominal pain. Pain started this morning, felt very full and then turned into a burning pain. Some nausea with no vomiting. BM's regular. Pain is in LUQ and radiate to lower abdomen. No fever or chills. History of Gerd. Able to keep food and liquidsdown. PAST MEDICAL HISTORY: PAST MEDICAL HISTORY Diagnosis Date Aortic sclerosis 2012 Found on echo Arthritis of foot Bilateral heel spurs. 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 PAST SURGICAL HISTORY Procedure Laterality Date ARTHROPLASTY GLENOHUMRL JT HEMIARTHROPLASTY Arthroplasty, shoulder BREAST LUMPECTOMY HX Right 09/13/2021 U/S guided open right breast lumpectomy BREAST LUMPECTOMY HX Right 09/2021 COLONOSCOPY FLX DX W/COLLJ SPEC WHEN PFRMD 03/26/2007 Colonoscopy DILATION & CURETTAGE DX&/THER NONOBSTETRIC Dilation & curettage LAPAROSCOPY SURG CHOLECYSTECTOMY 1979 Cholecystectomy, lap SKIN BIOPSY HX ALLERGIES Ciprofloxacin and Seasonal Allergies MEDICATIONS Current Outpatient Medications Medication Sig melatonin 10 mg cap Take 10 mg by mouth. lisinopril (ZESTRIL, PRINIVIL) 20 mg tablet Take 1 tablet by mouth once daily. amLODIPine (NORVASC) 2.5 mg tablet Take 1 tablet by mouth once daily. atorvastatin (LIPITOR) 20 mg tablet TAKE 1 TABLET DAILY AT BEDTIME FOR CHOLESTEROL budesonide-formoterol (SYMBICORT) 160-4.5 mcg/actuation inhaler Inhale 2 Puffs as instructed twice daily. rOPINIRole (REQUIP) 0.25 mg tablet Take 1 tablet by mouth at bedtime as needed (restless leg). ESOMEPRAZOLE MAGNESIUM (NEXIUM 24HR ORAL) Take by mouth. No current facility-administered medications for this visit. FAMILY HISTORY Problem Relation Age of Onset Alzheimer's Disease Mother Arthritis Father Stroke Father Breast Cancer Maternal Aunt other (lung cancer) Maternal Aunt Prostate Cancer Son Stroke Other Fatal. Brother in law. Social History Tobacco Use Smoking status: Former Smoker Packs/day: 1.30 Years: 32.00 Pack years: 41.60 Start date: [birth year]/10/1955 Quit date: 07/14/1986 Years since quittin.3 Smokeless tobacco: Never Used Tobacco comment: Parents did not smoke in childhood home. Spouse non smoker. Vaping Use Vaping Use: Never used Substance Use Topics Alcohol use: Yes Comment: Occasional. Drug use: No REVIEW OF SYSTEMS GENERAL: No weight loss, malaise or fevers/chills HEENT: Negative for frequent or significant headaches, No changes in hearing or vision. NECK: Negative for lumps, goiter, pain and significant neck swelling RESPIRATORY: Negative for cough, hemoptysis, wheezing, dyspnea or shortness of breath CARDIOVASCULAR: Negative for chest pain, leg swelling, orthopnea, or palpitations GI: + Abdominal Pain/Nausea : No history of dysuria, frequency or incontinence MUSCULOSKELETAL: Negative for joint pain or swelling. SKIN: Negative for lesions, rash, and itching ENDOCRINE: Negative for cold or heat intolerance, polyuria, polydipsia and goiter NEURO: No history of headaches, syncope, paralysis, seizures or tremors MOOD: Negative for depression, anxiety, or suicidal ideation. EXAM: BP 138/64 Pulse 98 Resp 18 Wt 67.6 kg (149 lb) SpO2 97% BMI 26.39 kg/m PHYSICAL EXAM: General Appearance: Well appearing, alert, in no acute distress, well-hydrated, well nourished. Skin: Skin color, texture, turgor normal, no suspicious rashes or lesions. Head: Normocephalic, no masses, lesions, tenderness or abnormalities. Eyes: Anicteric sclera. Extraocular movements are intact. Lungs: Lungs clear to auscultation. No wheezing, rhonchi, rales. Heart: RRR without murmur, gallop, or rubs. No ectopy. Abdomen: Abdomen soft. Bowel sounds hyperactive. No masses, organomegaly, Negative CVA tenderness. + Mild epigastric tenderness. Extremities: No deformities, edema, skin discoloration, clubbing or cyanosis. Good capillary refill. Peripheral Pulses: Normal, Capillary refill <2secs, strong peripheral pulses, Pulses palpable. ASSESSMENT/PLAN: 1. Viral gastroenteritis - ICD9: 008.8, ICD10: A08.4 - Based on history and exam symptoms consistent with viral gastroenteritis. - Supportive care at home. - May use zofran as needed for nausea, medication education/instructions discussed - ONDANSETRON 4 MG DISINTEGRATING TABLET Follow up as needed or sooner if symptoms do not improve. Discussed treatment plan and patient voices understanding. Patient's questions answered appropriately. Medications and potential side effects were discussed and patient voices understanding. Cuca Rojas APRN.INDRA This note was partially generated using [email or web address] voice recognition system. Note was reviewed for accuracy. There may be minor misspellings or grammar miscues with [email or web address] voice recognition. documented in this encounterAshtabula [facility] Hospital04-25-2022 Miscellaneous Notes* Telephone Encounter - Tayla Galarza RN - 11/05/2021 1:40 PM EDT Patient calling with request for same day appointment for stomach ache that has been intermittent and began three days ago. She states she has GERD but it has never been this bad. She rates pain as 5/10. Adamantly denies chest pain. Says the pain starts under her left breast and travels to her mid abdomen. Denies nausea, vomiting, constipation, diarrhea, fever/chills. States she has a feeling of fullness as if she ate too much. Disposition: See PCP within 4 hours or PCP triage. Appointment scheduled. Tayla Galarza RN Reason for Disposition [1] MILD-MODERATE pain AND [2] constant AND [3] present > 2 hours Answer Assessment - Initial Assessment Questions 1. LOCATION: under left breast She states I have a stomach ache I am not having chest pain. 2. RADIATION: radiates into middle abdomen. Denies chest pain, radiation into arm, neck or jaw. 3. ONSET: three days ago 4. SUDDEN: gradual onset 5. PATTERN: Has been intermittent for last few days 6. SEVERITY: Patient rates pain as 5/10 7. RECURRENT SYMPTOM: Patient states this is not chest pain but says I don't know if it is GERD because I haven't had GERD this bad before 8. AGGRAVATING FACTORS: food has not changed symptoms 9. CARDIAC SYMPTOMS: Denies chest pain, difficulty breathing, sweating, nausea 10. OTHER SYMPTOMS: Denies fever, vomiting, diarrhea, constipation Protocols used: ABDOMINAL PAIN - [id number] documented in this encounterAshtabula [facility] Hospital04-25-2022 History of Present illness Narrative* Calista Vee RN - 11/05/2021 9:39 AM EDT INSIGHT CD TELEPHONIC OUTREACH Provider Action/FYI: Pt reports she is doing good, received Covid booster 11/01/21. Chart updated. Pt had no questions/concerns/needs at this time. Contact made with patient: Yes Patient identified by name and . Discussed care with patient It s nice talking to you again. As a reminder, this is our bi-weekly check-in where I will be asking you questions about your health. This will only take a few minutes of your time. Is this a good time? Yes Symptoms What Chronic Disease(s) does the patient have: COPD Do you check your blood pressures at home? No Do you have new or worse shortness of breath with activity? No Do you have new or worsening cough? No Do you have new or worsening wheezing? No Do you need to use your rescue (Albuterol) inhaler or nebulizer more often than normal? No Are you having any other symptoms that your PCP needs to know about? No Symptom Escalation The patient required an escalation for symptom(s)? No Medications Do you have any questions about taking your medication or which medications you should be on? No Do you need any medication refills at this time, including any of the medications you might take only when needed? No Social We would like to make sure you have what you need so that your basic needs are met- including your personal safety, food, housing and medications? Would you like to speak with a social work bakery team member to help give you support for any of these needs? No It can be normal to feel anxious or down during a time like this. Would you like to talk to a mental health professional about how you have been feeling? No Closing Thank you for taking the time to talk with me today. We want to work with you to ensure that we arekeeping your medical condition(s) well-controlled and to keep you healthy and out of the doctor's office or hospital. It s also not too late for me to sign you up for automated weekly questionnaires through [employer]. This is an easy way for us to stay connected each week. Are you interested? No, I understand. We can always sign you up in the future if you change your mind. Just as a reminder, will continue to call you every other week to check in on your health. Our calls should take 10-15 minutes or less. Remember, if you have concerns in between our calls, please call your PCP's office right away. Thank you. Enter next patient outreach date for two weeks on the same day of the week as today in the Track PtOutreach and End outreach. documented in this encounterAshtabula [facility] Hospital04-12-2022 History of Present illness Narrative* Calista Vee RN - 10/23/2021 11:51 AM EDT [facility] TELEPHONIC OUTREACH Provider Action/FYI: Contact made with patient: No - Left message Dasha my name is Calista Vee RN your [employer]eral [employer] Location Manager [facility] I am calling today for your bi-weekly check in. I am sorry I missed your call. I will reach out to you again tomorrow. (if the third call I will reach out to you again next week) Enter next patient outreach date for the following business day using the Track Pt Outreach. End outreach. documented in this encounterAshtabula [facility] Hospital04-11-2022 History of Present illness Narrative* Calista Vee RN - 10/22/2021 12:26 PM EDT [facility] TELEPHONIC OUTREACH Provider Action/FYI: Contact made with patient: No - Left message Dasha my name is Calista Vee RN your [employer]eral [employer] Location Manager [facility] the [facility] I am calling today for your bi-weekly check in. I am sorry I missed your call. I will reach out to you again tomorrow. (if the third call I will reach out to you again next week) Enter next patient outreach date for the following business day using the Track Pt Outreach. End outreach. documented in this encounterAs[facility] History of Present illness Narrative* Italia Acevedo DO - 10/19/2021 11:20 AM EDT Associated Order(s): Large Joint Arthro/Inj: L glenohumeral Post-Procedure Diagnose(s): Primary osteoarthritis of left shoulder Images from the original note were not included. Follow Up Visit Chief Complaint Marshall Wu is a 86 year old female who presents today for follow up office visit. Patient presents with: Left Shoulder - Established Patient, Pain, Swelling History of Present Illness PAIN EVALUATION 10/19/2021 1118 Pain Level: 8 Pain Location: Shoulder-Left Description: Aching;Dull;Sore;Throbbing;Shooting;Sharp Duration Amount of Time: ongoing Frequency: Continuous Intervention/Comfort measure: Reposition;Relaxation;Cold;Medication HPI: Marshall Wu is a 86 year old female for a follow up visit left shoulder pain. Patient was cleared to have cortisone injection and is requesting to have one today. Pain history is noted as above. Denies numbness, tingling, fever, chills or other constitutional symptoms. Is there any overall improvement in your condition? No Any new injury, since being seen last: No REVIEW OF SYMPTOMS: Patient did not have, and does not currently have, any weight loss, malaise, fever, chills, headache, chest pain, chest pressure, palpitations, cough, shortness of breath, orthopnea, paroxsymal nocturnal dyspnea, nausea, vomiting, diarrhea, constipation, melena, hematochezia, urinary difficulties, prolonged bleeding, easily bruising, heat or cold intolerance, new onset joint pain or swelling, newonset extremity weakness or numbness, new onset auditory or visual disturbances, lightheadedness, dizziness, partial loss of consciousness or full loss of consciousness. Current Outpatient Medications Medication Sig melatonin 10 mg cap Take 10 mg by mouth. lisinopril (ZESTRIL, PRINIVIL) 20 mg tablet Take 1 tablet by mouth once daily. amLODIPine (NORVASC) 2.5 mg tablet Take 1 tablet by mouth once daily. atorvastatin (LIPITOR) 20 mg tablet TAKE 1 TABLET DAILY AT BEDTIME FOR CHOLESTEROL budesonide-formoterol (SYMBICORT) 160-4.5 mcg/actuation inhaler Inhale 2 Puffs as instructed twice daily. rOPINIRole (REQUIP) 0.25 mg tablet Take 1 tablet by mouth at bedtime as needed (restless leg). ESOMEPRAZOLE MAGNESIUM (NEXIUM 24HR ORAL) Take by mouth. No current facility-administered medications for this visit. Physical Exam Vitals: There were no vitals taken for this visit. Psych: Pleasant, good affect and mood General Appearance: Well appearing, alert, in no acute distress, well-hydrated, well nourished.. Skin: Skin color, texture, turgor normal, no suspicious rashes or lesions. Peripheral Pulses: Normal. Neurologic: Gait normal. Reflexes normal and symmetric. Sensation grossly intact.. Lymph Nodes: No cervical lymphadenopathy, No supraclavicular lymphadenopathy, No axillary lymphadenopathy. and No inguinal lymphadenopathy.. Respiratory: No recent pulmonary infection, hemoptysis, chronic cough, or shortness of breath at rest Rheumatologic: Joint deformities: Left shoulder pain Ortho Exam Assessment and Plan Radiographs: I have independently reviewed films and my findings are the same. Impression: No diagnosis found. Large Joint Arthro/Inj: L glenohumeral Informed Consent Consent Obtained: Verbal [place] Protocol A moment to CARE was completed. SIGN IN Personnel directly involved with the procedure wore the appropriate PPE. Special Equipment: N/A Patient/Surrogate Stated/Verified: Patient name, Date of , Relevant allergies and Intended procedure TIME OUT Intended patient and procedure match the source document(s). Consent documented and matches the intended procedure. Relevant labs, photos, and/or imaging studies have been reviewed. Correct side/site marked and visible. Medications required for procedure verified. Fire risk assessed and interventions discussed. No implant(s) inserted. 10/19/2021 2:58 PM The procedure site was prepped in the usual sterile fashion. Site: L glenohumeral Medications: 80 mg triamcinolone acetonide 40 mg/mL Anesthetics: 8 mL ropivacaine (PF) 5 mg/mL (0.5 %) Outcome: Tolerated well, no immediate complications Post-injection instructions were reviewed with the patient and the patient voiced understanding of these instructions. SIGN OUT All specimen containers correctly labeled. All instruments, equipment, possible retained foreign bodies accounted for. Post-procedure follow-up management communicated and Plan of Care Visit completed when applicable Discussed with patient possible options for treatment. Patient elected proceed with injection. Patient told not to submerge the injected area for 24 hours in a hot tub, or bath, injection may take 2 weeks for improvement to be noticed, follow-up in 2 -6 weeks if symptoms do not resolve. All questions answered patient agreement of plan. Apply ice Limit activities as discussed Rest Do not submerge limb in water for 24 hours Cont current meds Watch sugars/decrease carbs Call if warm/hot/red Discussed with patient that if the injection does not work after 2 to 4 weeks to come back for reevaluation. Discussed the next 3 days may feel worse before it feels better. Discussed if having continued pain to return. May get injection every 3 months Today, in detail, through a thorough evaluation, we discussed possible etiologies of pain and our plans for further diagnostic and therapeutic interventions. We discussed strategies for decreasing pain and improving strength, stability and motion. Patient's questions were answered in detailed. Patient verbalizes understanding and agrees with the treatment plan as discussed. documented in this encounterAs[facility]03-31-[facility]22 History of Present illness Narrative* Kamille Rizo PA-C - 10/11/2021 2:30 PM EDT [facility] [place], 10/11/2021: Name: Marshall Wu : 1935 The patient is here today by herself. 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 Former smoker, quit 1986. 41.6 pack years. The patient is here for follow up of COPD. Since the last Pulmonary Clinic visit 04/12/2021, the patient has not required ED care for exacerbation. There has been no hospital admission for exacerbation. Claims to be consistently compliant with prescribed maintenance Rx Symbicort daily. Daily cough the past few weeks that she attributes to PND with season change. Non-productive. No hemoptysis. No wheezing. No dyspnea at rest. Exertional dyspnea has not changed. Occasional lower extremity edema. PMH: Updated with patient today. FAMH: Updated with patient today. SOCH: Updated with patient today. IMMUNIZATIONS Prevnar 13 - 05/19/2015 Pneumovax 23 - xx Influenza - 05/05/2021 COVID-19 - 08/31/2020, 08/03/2020, 05/17/2021 ROS: See HPI. Allergies were reviewed and updated, and medications were reconciled with the patient. PHYSICAL EXAMINATION: BP 152/67 (BP Site: Left Arm, BP Position: Sitting, BP Cuff Size: Regular Adult) Pulse 88 Resp 18 Ht 160 cm (5' 3) Wt 70.3 kg (155 lb) SpO2 97% BMI 27.46 kg/m Gen: No acute distress. Cooperative with examination. ENT: Oral hygeine and dentition good. Pharynx clear. No halitosis. No sign of oral thrush. Resp: No stridor, accessory respiratory muscle use, supra-sternal or intercostal retractions. No wheezes, crackles. CV: Regular rythm. Heart tones normal. Radial pulses normal. Abd: Non distended. MSK: No kyphoscoliosis. Ext: Warm and well perfused. No clubbing, cyanosis, edema. Skin: No rash, ecchymoses. Neuro: Mental status normal. Affect normal. No tremor. DATA REVIEW: DATE: 10/11/2021 09/26/20 01/05/18 FVC 2.22, 96% 1.99, 79% 2.18, 81% FEV1 1.37, 78% 1.40, 73% 1.43, 72% FEV1/FVC 0.62 0.70 0.66 ASSESSMENT/PLAN: 1. 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) - ICD9: 496, ICD10: J44.9 (primary diagnosis) Symptomatically doing well with improved FEV1 today. Continue Symbicort 2 inhalations twice daily. Rinse mouth after each use to help prevent oral thrush. Up to date on annual influenza and covid 19 vaccines. 2. Seasonal allergic rhinitis, unspecified trigger - ICD9: 477.9, ICD10: J30.2 Continue Zyrtec prn and daily Flonase. I addressed the questions of the patient, and she expressed understanding and acceptance of my answers. Kamille Rizo PA-C documented in this encounterAshtabula [facility]03-31-2022 History of Present illness Narrative* Farhat Cornelius RRT - 10/11/2021 1:59 PM EDT PULM FUNCTION SMARTBLOCK: Provider: Kamille Rizo PA-C Assisting Tech: Farhat Cornelius RRT Spirometry: 1 System: [id number] documented in this encounterAshtabula [facility]03-28-2022 Instructions* Patient Instructions* Tee Montgomery PA-C - 10/08/2021 4:26 PM EDT Diarrhea: adults What is diarrhea? Diarrhea is the sudden increase in the frequency and looseness of bowel movements (BMs). Mild diarrhea is the passage of a few loose or mushy BMs. Severe diarrhea is the passage of many watery BMs. The best indicator of the severity of the diarrhea is its frequency. The main complication of diarrhea is dehydration and loss of electrolytes from the loss of too muchbody fluid. Symptoms of dehydration are a dry mouth, the absence of tears, infrequent urination (for example, none in 12 hours), and a darker, concentrated urine. The main goal of diarrhea treatment is to prevent dehydration. What is the cause? Diarrhea is usually caused by a viral infection of the lining of the intestines (gastroenteritis). Sometimes it is caused by bacteria or parasites. Occasionally a food allergy or drinking too much fruit juice may cause diarrhea. If you have just one or two loose bowel movements, the cause is probably something unusual you ate. A diet of nothing but clear fluids for more than 2 days may cause green , watery bowel movements (called starvation stools). How long will it last? Diarrhea usually lasts several days to a week, regardless of the type of treatment. The main goal of treatment is to prevent dehydration. You need to drink enough fluids to replace the fluids lost inthe diarrhea. Don't expect a quick return to solid bowel movements. What should I eat? Increased fluids and dietary changes are the main treatment for diarrhea. Note: One loose bowel movement can mean nothing. Don't start dietary changes until you have had several loose bowel movements. Mild diarrhea (loose BMs) Follow a regular diet with a few simple changes: Eat more foods containing starch. Starchy foods are easily digested during diarrhea. Examples are cereal, breads, crackers, rice, mashed potatoes, and noodles. Drink more water. Avoid all fruit juices. Eat or drink less milk and milk products for a few days. Avoid beans or any other foods that cause loose bowel movements. Severe diarrhea: Fluids: Drink lots of fluids to prevent dehydration. Take water as the main fluid for the first 24 hours of watery diarrhea. Avoid milk and dairy products (except yogurt) as they may cause diarrhea to be worse. When inflammation occurs in the intestines, it may affect the levels of helpful bacteriawhich break down milk sugars. This may result in milk intolerance for a few days until the balance is restored. Avoid fruit juices, because they all make diarrhea worse. Electrolye solutions such as Gatorade or Powerade may help to replace electrolytes and ease muscle aching and cramping. Foods: You should continue to eat during episodes of diarrhea. The choice of food is important. Starchy foods are digested best. Examples of such foods are dried cereals, grains, bread, crackers, rice, noodles, mashed potatoes, carrots, applesauce and bananas. Pretzels or saltine crackers can help meet your need for sodium. On the second day of the diarrhea, if you may add some protein, soft-boiled eggs or yogurt are usually easily digested. How can I take care of myself? Common mistakes: CATALINO-Aid, soda pop, or water should not be used as the only food because they contain little or no salt. Use only the fluids suggested here. The most dangerous myth is that the intestine should be put to rest. Restricting fluids can cause dehydration. There is no effective, safe drug for diarrhea. Extra fluids and diet therapy work best. Prevention: Diarrhea is very contagious. Always wash your hands after changing diapers or using thetoilet. This is crucial for keeping everyone in the family from getting diarrhea. Vomiting with diarrhea: If you have vomited more than twice, follow the recommended treatment for vomiting instead of this treatment for diarrhea until your child has gone 8 hours without vomiting. When should I call my health care provider? Call IMMEDIATELY OR GO TO THE EMERGENCY ROOM if: There are signs of dehydration (no urine in more than 12 hours, very dry mouth, no tears). Any blood appears in the diarrhea. The diarrhea is severe (more than 8 BMs in the last 8 hours). The diarrhea is watery AND you vomit repeatedly. You are very weak. Call during office hours if: Mucus or pus appears in the BMs. A fever lasts more than 3 days. Mild diarrhea lasts more than 2 weeks. You have other concerns or questions. Medications: generally medications are not helpful or necessary. Even with infectious diarrhea or dysentery, the treatment surrounds fluid replacement and time. If you are experiencing excessive cramping and discomfort, Immodium AD over the counter may help. Tylenol 1000mg every 6h if needed for pain. documented in this encounterAshtabula [facility]03-28-2022 History of Present illness Narrative* Tee Montgomery PA-C - 10/08/2021 3:57 PM EDT 86 year old female with history of gastroesophageal reflux, COPD, hypertension, hyperglycemia c/o upper mid-abdominal pain since 3-4 days. Intermittent, feeling bloated. On and off diarrhea, watery to mushy a few stools. Took Immodium AD which stopped the diarrhea. Has had stomach pain which seems to migrate, with cramping. Pain is not severe but inhibitory, makes her feel nauseated and uncomfortable. Has had a few episodes with intermittent stomach problems over the last month or so. Threw up 1.5 weeks ago after eating out, something that didn't sit well. Had another episode a few weeks before that with diarrhea. No fever or chilling. No urinary pain, burning, frequency, vaginal discharge, vaginal bleeding. Appetite has been present but when she eats she feels worse. She has been sticking to mostly bland liquids, small bits of soft foods. Even this amount seems to upset her stomach. Symptoms occurred earlier this month after being seen at [facility] for breast lump with concerns for malignancy. Breast cancer clinic: all clean. Mammo in 6 months for follow-up At [place] to see Dr. Sainz: Having significant left shoulder pain which been ongoing. XR left shoulder, gave cortisone and recommended surgery: wants to wait through summer. BP has been a little labile but feels high readings due to office stress with breast cancer. HISTORIES FAMILY HISTORY Problem Relation Age of Onset Alzheimer's Disease Mother Arthritis Father Stroke Father Breast Cancer Maternal Aunt other (lung cancer) Maternal Aunt Prostate Cancer Son Stroke Other Fatal. Brother in law. PAST MEDICAL HISTORY Diagnosis Date Aortic sclerosis 2012 Found on echo Arthritis of foot Bilateral heel spurs. 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 PAST SURGICAL HISTORY Procedure Laterality Date ARTHROPLASTY GLENOHUMRL JT HEMIARTHROPLASTY Arthroplasty, shoulder BREAST LUMPECTOMY HX Right 09/13/2021 U/S guided open right breast lumpectomy BREAST LUMPECTOMY HX Right 09/2021 COLONOSCOPY FLX DX W/COLLJ SPEC WHEN PFRMD 03/26/2007 Colonoscopy DILATION & CURETTAGE DX&/THER NONOBSTETRIC Dilation & curettage LAPAROSCOPY SURG CHOLECYSTECTOMY 1979 Cholecystectomy, lap SKIN BIOPSY HX Social History Tobacco Use Smoking status: Former Smoker Packs/day: 1.30 Years: 32.00 Pack years: 41.60 Start date: [birth year]10/1955 Quit date: 07/14/1986 Years since quittin.2 Smokeless tobacco: Never Used Tobacco comment: Parents did not smoke in childhood home. Spouse non smoker. Vaping Use Vaping Use: Never used Substance Use Topics Alcohol use: Yes Comment: Occasional. 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 lisinopril (ZESTRIL, PRINIVIL) 20 mg tablet Take 1 tablet by mouth once daily. 90 tablet 1 amLODIPine (NORVASC) 2.5 mg tablet Take 1 tablet by mouth once daily. 90 tablet 3 atorvastatin (LIPITOR) 20 mg tablet TAKE 1 TABLET DAILY AT BEDTIME FOR CHOLESTEROL 90 tablet 3 budesonide-formoterol (SYMBICORT) 160-4.5 mcg/actuation inhaler Inhale 2 Puffs as instructed twice daily. 3 Inhaler 4 rOPINIRole (REQUIP) 0.25 mg tablet Take 1 tablet by mouth at bedtime as needed (restless leg). 30 tablet 5 ESOMEPRAZOLE MAGNESIUM (NEXIUM 24HR ORAL) Take by mouth. fluticasone propionate (FLONASE NASAL) Use in the nose. No current facility-administered medications for this visit. DTAP,TDAP,TD(1 - Tdap) due on 02/05/2016 ADVANCE DIRECTIVE DISCUSSION Never done EXAM: BP 136/72 Pulse 88 Temp 36.7 C (98.1 F) (Tympanic) Resp 18 Wt 68.9 kg (152 lb) SpO2 97% BMI 26.09 kg/m Pleasant older woman in no acute distress. Alert and oriented all spheres. Normal affect and cognition. Speech normal. No deficits to learning or comprehension. Skin warm, dry, pink to lips and nailbeds. Normal turgor. Respirations regular and unlabored. HEENT: NCAT. No scleral icterus or conjunctival injection. TM's clear. Nose and oropharynx free from injection or lesion. Oral membranes moist and pink, lips are dry. No cervical lymph nodes. Thyroidnon-tender, no masses, or enlargement. Carotids pulses 2+/4+ without bruits. Neck is supple, mildly restricted range of motion. Chest is normal shape. Lungs are clear to all paul with good air exchange through out. HRRR without murmur or gallop. No lifts, heaves, or rubs. Abd: Scaphoid, soft, bowel sounds active throughout. No pulsatile masses. No focal tenderness, and some mild discomfort generalized, no rebound, guarding, or peritoneal signs. No masses. No organomegaly. Mena's punch: negative. No flank pain. No inguinal or axillary lymphadenopathy. Extrem: no clubbing or cyanosis. Edema: none. Extremities are warm and pink with prompt capillary refill. ASSESSMENT/PLAN: 1. Diarrhea of presumed infectious origin - ICD9: 009.3, ICD10: R19.7 (primary diagnosis) We have had outbreaks with diarrhea over the last 3 to 4 weeks in the community with norovirus. I suspect that may be the case but will proceed with lab. Encouraged to push fluids, electrolytes, soft bland foods. - UA DIP, URINE (POC) - CBC - COMP METABOLIC PANEL 2. Intermittent generalized abdominal pain - ICD9: 789.07, ICD10: R10.84 - UA DIP, URINE (POC) - CBC - COMP METABOLIC PANEL Tee Montgomery PA-C documented in this encounterAshtabula [facility]03-11-2022 NoteHNO ID: [id number] Author: RT Checo(R) Service: Radiology Author Type: Technologist Type: Progress Notes Filed: 09/21/2021 11:31 AM Note Text: Radiology Service Progress Note PATIENT NAME: Marshall Wu DATE OF SERVICE: September 21, 2021 TIME: 11:31 AM PATIENT IDENTITY VERIFICATION COMPLETED USING TWO (2) IDENTIFIERS: Name and Date of confirmed by patient verbally. FALL SCREENING: Has the patient had 2 falls in the last year or 1 fall with injury or currently using an Ambulatory Assistive Device (Walker, Cane, Wheelchair, Crutches, etc.)? No PATIENT GENDER DATA: Female. status: : No status: N/A PATIENT RELEVANT IMPLANT DATA REVIEWED: Not Applicable RADIOLOGY DEPARTMENT: General X-ray: Exam(s) Completed: Upper Extremity X-Ray(s): Shoulder, AP / TRUE AP / AXILLARY / SUPRA OUTLET left PERIPHERAL IV DATA: Not applicable SIGNED BY: RT Checo(R) September 21, 2021 11:31 AMWhite [id number] History of Present illness Narrative* Hyacinth Roth RT(R) - 04/19/2021 10:00 AM EDT Radiology Service Progress Note PATIENT NAME: Marshall Wu DATE OF SERVICE: April 19, 2021 TIME: 9:59 AM PATIENT IDENTITY VERIFICATION COMPLETED USING TWO (2) IDENTIFIERS: Name and Date of confirmedby patient verbally. FALL SCREENING: Has the patient had 2 falls in the last year or 1 fall with injury or currently using an Ambulatory Assistive Device (Walker, Cane, Wheelchair, Crutches, etc.)? No PATIENT GENDER DATA: Female. status: : No status: NO. PATIENT RELEVANT IMPLANT DATA REVIEWED: Yes RADIOLOGY DEPARTMENT: General X-ray: Exam(s) Completed: Upper Extremity X- Ray(s): Wrist, left PERIPHERAL IV DATA: Not applicable SIGNED BY: RT Sea(R) April 19, 2021 9:59 AM documented in this encounterMag[facility] note* Diagnosis Diarrhea of presumed infectious origin- Primary Intermittent generalized abdominal pain documented in this encounter [facility] note* Diagnosis Stage 2 moderate COPD by GOLD classification ([facility]) documented in this encounter [facility] note* Diagnosis Stage 2 moderate COPD by GOLD classification ([facility])- Primary Seasonal allergic rhinitis, unspecified trigger documented in this encounter [facility] note* Diagnosis Primary osteoarthritis of left shoulder- Primary Primary localized osteoarthrosis, shoulder region documented in this encounter [facility] note* Diagnosis Viral gastroenteritis- Primary Intestinal infection due to other organism, not elsewhere classified documented in this encounter [facility] note* Diagnosis Primary osteoarthritis of left shoulder- Primary Primary localized osteoarthrosis, shoulder region Encounter for screening for COVID-19 documented in this encounter [facility] note* Diagnosis Primary osteoarthritis of left shoulder- Primary Primary localized osteoarthrosis, shoulder region Chronic left shoulder pain Pain in joint, shoulder region Primary osteoarthritis of left shoulder Primary localized osteoarthrosis, shoulder region Chronic left shoulder pain Pain in joint, shoulder region documented in this encounter [facility] note* Diagnosis Essential hypertension, benign documented in this encounter [facility] note* Diagnosis Ductal carcinoma in situ (DCIS) of right breast [facility]* Diagnosis Gastroesophageal reflux disease without esophagitis Esophageal reflux documented in this encounter [facility] note* Diagnosis Skin tear of left upper arm without complication, sequela- Primary Gastroesophageal reflux disease without esophagitis Esophageal reflux Simple chronic bronchitis (HCC) Simple chronic bronchitis Essential hypertension, benign Hyperglycemia Other abnormal glucose Mixed hyperlipidemia Status post reverse arthroplasty of left shoulder documented in this encounter [facility] note* Diagnosis Essential hypertension, benign- Primary Need for influenza vaccination Need for prophylactic vaccination and inoculation against influenza [facility]* Diagnosis Essential hypertension, benign- Primary documented in this encounter [facility] note* Diagnosis Onset Date Resolution Status Left carotid bruit chronic Polyneuropathy chronic Restless legs syndrome [facility] Work Phone: Evaluation note* Diagnosis Stage 1 mild COPD by GOLD classification ([facility])- Primary Post-nasal drip Postnasal drip Gastroesophageal reflux disease, unspecified whether esophagitis present [facility]* Diagnosis Skin tear of forearm without complication, right, initial encounter- Primary Hypertension, essential Unspecified essential hypertension documented in this encounter [facility] note* Diagnosis Essential hypertension, benign- Primary Mixed hyperlipidemia Hyperglycemia Other abnormal glucose Simple chronic bronchitis (HCC) Simple chronic bronchitis Gastroesophageal reflux disease without esophagitis Esophageal reflux Status post reverse arthroplasty of left shoulder Restless legs Restless legs syndrome (RLS) Urinary tract infection without hematuria, site unspecified Lumbar sprain, initial encounter Vitamin D deficiency Unspecified vitamin D deficiency documented in this encounter [facility] note* Diagnosis Essential hypertension, benign Essential hypertension Unspecified essential hypertension documented in this encounter [facility] note* Diagnosis Breast neoplasm, Tis (DCIS), right documented in this encounter [facility] note* Diagnosis Essential hypertension, benign documented in this encounter [facility] note* Diagnosis Acute midline low back pain without sciatica- Primary documented in this encounter [facility] note* Diagnosis Acute midline low back pain without sciatica- Primary documented in this encounter [facility] note* Diagnosis Acute midline low back pain without sciatica- Primary documented in this encounter [facility] note* Diagnosis Essential hypertension, benign- Primary Gastroesophageal reflux disease without esophagitis Esophageal reflux Hyperglycemia Other abnormal glucose Mixed hyperlipidemia Vitamin D deficiency Unspecified vitamin D deficiency documented in this encounter [facility] note* Diagnosis Acute midline low back pain without sciatica- Primary documented [facility]* Diagnosis Multiple thyroid nodules- Primary Nontoxic multinodular goiter Essential hypertension, benign Mixed hyperlipidemia Hyperglycemia Other abnormal glucose Simple chronic bronchitis (HCC) Simple chronic bronchitis Gastroesophageal reflux disease without esophagitis Esophageal reflux Status post reverse arthroplasty of left shoulder Restless legs Restless legs syndrome (RLS) documented in this encounter [facility] note* Diagnosis Skin lesion- Primary Unspecified disorder of skin and subcutaneous tissue Seborrheic keratosis Actinic keratoses Actinic keratosis History of malignant melanoma of skin Personal history of malignant melanoma of skin documented in this encounter [facility] note* Diagnosis Essential hypertension, benign Essential hypertension Unspecified essential hypertension documented in this encounter [facility] note* Diagnosis 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) [facility] Stage 1 mild COPD by GOLD classification ([facility])- Primary Seasonal allergic rhinitis, unspecified trigger Gastroesophageal reflux disease, unspecified whether esophagitis present [facility] Diagnosis Thyroid nodule greater than or equal to 1.5 cm in diameter incidentally noted on imaging study [facility] Diagnosis Multiple thyroid nodules- Primary Nontoxic multinodular goiter [facility] Diagnosis Multiple thyroid nodules- Primary Nontoxic multinodular goiter [facility] Diagnosis Cellulitis of left lower leg- Primary Cellulitis and abscess of leg, except foot [facility] Diagnosis ISTAP type 1 skin tear of left lower leg- Primary [facility] Diagnosis Ductal carcinoma in situ (DCIS) of right breast- Primary S/P lumpectomy, right breast Other postprocedural status Personal history of breast cancer Personal history of malignant neoplasm of breast Visit for screening mammogram Other screening mammogram [facility]* Diagnosis Ductal carcinoma in situ (DCIS) of right breast [facility] Diagnosis Suspected COVID-19 virus infection- Primary COPD with exacerbation (HCC) Obstructive chronic bronchitis with exacerbation [facility] Diagnosis Upper respiratory tract infection, unspecified type- Primary Subacute cough Cough COPD, mild (HCC) Chronic airway obstruction, not elsewhere classified [facility] Diagnosis Restless leg- Primary Restless legs syndrome (RLS) Essential hypertension, benign Neuropathy of both feet Unspecified hereditary and idiopathic peripheral neuropathy Bilateral leg edema Edema Shortness of breath Overflow incontinence Simple chronic bronchitis (HCC) Simple chronic bronchitis [facility]* Diagnosis Essential hypertension, benign- Primary Skin tear of left elbow without complication, subsequent encounter Thumb tendonitis Other tenosynovitis of hand and wrist Simple chronic bronchitis (HCC) Simple chronic bronchitis [facility] Diagnosis Neoplasm of uncertain behavior of skin- Primary Actinic keratoses Actinic keratosis Multiple benign nevi Seborrheic keratosis Solar lentigo Other dyschromia History of melanoma Personal history of malignant melanoma of skin History of nonmelanoma skin cancer History of atypical nevus documented in this encounter [facility] note* Diagnosis Essential hypertension, benign Essential hypertension Unspecified essential hypertension documented in this encounter [facility]* Diagnosis 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 Former smoker Personal history of tobacco use, presenting hazards to health documented in this encounter [facility]* Diagnosis Shakiness- Primary Abnormal involuntary movements Elevated blood pressure reading Elevated blood pressure reading without diagnosis of hypertension documented [facility] this [facility]* Diagnosis Viral illness- Primary Unspecified viral infection, in conditions classified elsewhere and of unspecified site Acute upper respiratory infection, unspecified documented [facility] this [facility]* Diagnosis Right hand pain Pain in limb documented in this encounter [facility] note* Diagnosis RLS (restless legs syndrome)- Primary Restless legs syndrome (RLS) Neuropathy Mononeuritis of unspecified site Abnormal finding of blood chemistry, unspecified documented in this encounter [facility] note* Diagnosis Suspected COVID-19 virus infection documented [facility] this encounter [facility]* Diagnosis Pain of right hip- Primary documented in this encounter [facility]* Diagnosis Acute wrist pain, left documented in this encounter [facility] note* Diagnosis Personal history of breast cancer Personal history of malignant neoplasm of breast Visit for screening mammogram Other screening mammogram documented in this encounter [facility] note* Diagnosis Restless leg Restless legs syndrome (RLS) documented [facility]* Diagnosis Restless leg Restless legs syndrome (RLS) documented [facility]* Diagnosis Acute pain of right knee- Primary Skin tear of left forearm without complication, initial encounter Skin tear of right lower leg without complication, initial encounter Acute pain of right knee documented [facility] this [facility]* Diagnosis Acute pain of right knee documented in this encounter [facility] note* Diagnosis Skin tear of left forearm without complication, sequela- Primary Skin tear of right lower leg without complication, subsequent encounter documented [facility] this [facility]* Diagnosis Falls- Primary Unspecified fall documented in this encounter [facility]* Diagnosis Right hand pain- Primary Pain in limb [facility] Diagnosis Neuropathy- Primary Mononeuritis of unspecified site Restless leg Restless legs syndrome (RLS) Neuropathy of both feet Unspecified hereditary and idiopathic peripheral neuropathy History of iron deficiency Personal history of diseases of blood and blood-forming organs documented [facility] this encounter [facility]* Diagnosis Chronic constipation- Primary Unspecified constipation Essential hypertension, benign Essential hypertension Unspecified essential hypertension Stage 1 mild COPD by GOLD classification ([facility]) Other emphysema (HCC) Other emphysema documented in this encounter [facility] note* Diagnosis Neoplasm of uncertain behavior of skin- Primary Actinic keratoses Actinic keratosis Multiple benign melanocytic nevi of both upper extremities, both lower extremities, and trunk Seborrheic keratosis History of melanoma Personal history of malignant melanoma of skin History of nonmelanoma skin cancer History of atypical nevus documented in this encounter [facility] note* Diagnosis Mixed hyperlipidemia documented in this encounter [facility] note* Diagnosis Essential hypertension, benign documented in this encounter [facility] note* Diagnosis Stage 1 mild COPD by GOLD classification ([facility]) documented in this encounter [facility] note* Diagnosis Stage 1 mild COPD by GOLD classification ([facility])- Primary Former smoker Personal history of tobacco use, presenting hazards to health documented in this encounter [facility] note* Diagnosis Restless leg- Primary Restless legs syndrome (RLS) History of iron deficiency Personal history of diseases of blood and blood-forming organs Peripheral polyneuropathy Unspecified hereditary and idiopathic peripheral neuropathy documented in this encounter [facility] note* Diagnosis Essential hypertension- Primary Unspecified essential hypertension Stage 1 mild COPD by GOLD classification ([facility]) Encounter for immunization Need for other specified prophylactic vaccination against single bacterial disease Pure hypercholesterolemia Gastroesophageal reflux disease without esophagitis Esophageal reflux Neoplasm of uncertain behavior of skin of upper arm documented [facility] this [facility]* Diagnosis Acute non-recurrent sinusitis, unspecified location- Primary Cough, unspecified type Upper back pain Pure hypercholesterolemia documented [facility]* Diagnosis Chronic midline low back pain without sciatica- Primary documented [facility]* Diagnosis Chronic bilateral low back pain without sciatica- Primary Degeneration of intervertebral disc of lumbar region with discogenic back pain Idiopathic peripheral neuropathy Unspecified hereditary and idiopathic peripheral neuropathy documented in this encounter [facility] note* Diagnosis Essential hypertension, benign [facility]* Diagnosis Overflow incontinence documented [facility] this [facility]* Diagnosis 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)- Primary Former cigarette smoker Personal history of tobacco use, presenting hazards to health documented [facility]* Diagnosis Essential hypertension, benign Hyperlipidemia Other and unspecified hyperlipidemia documented in this encounter [facility] note* Diagnosis Gastroesophageal reflux disease without esophagitis- Primary Esophageal reflux Essential hypertension Unspecified essential hypertension Fatigue, unspecified type Screening for depression Encounter for screening examination for other mental health and behavioral disorders documented in this encounter [facility] note* Diagnosis Neoplasm of uncertain behavior of skin- Primary Actinic keratoses Actinic keratosis Seborrheic keratosis History of melanoma Personal history of malignant melanoma of skin History of atypical nevus History of nonmelanoma skin cancer [facility]* Diagnosis Peripheral polyneuropathy- Primary Unspecified hereditary and idiopathic peripheral neuropathy Restless leg Restless legs syndrome (RLS) History of iron deficiency Personal history of diseases of blood and blood-forming organs documented in this encounter [facility] note* Diagnosis Essential hypertension, benign- Primary Chronic obstructive pulmonary disease, unspecified COPD type (HCC) Multiple thyroid nodules Nontoxic multinodular goiter Gastroesophageal reflux disease with esophagitis without hemorrhage Hyperlipidemia, unspecified hyperlipidemia type Hyperglycemia Other abnormal glucose Osteopenia, unspecified location Overflow incontinence Hypokalemia Hypopotassemia Fatigue, unspecified type documented in this encounter [facility] note* Diagnosis Multiple thyroid nodules Nontoxic multinodular goiter documented in this encounter [facility] for referral (narrative)* Diagnostic Procedure Only (Routine) - Closed Specialty Diagnoses / Procedures Referred By Bubba t Referred To Contact BR IMAGING Diagnoses Ductal carcinoma in situ (DCIS) of right breast Procedures DAMARIS DIAGNOSTIC BILAT DIAGNOSTIC MAMMOGRAPHY COMPUTER-AIDED DETCJ Cleo Mchugh MD [address] [facility] [address] [facility] [address] [place] [address] Referral ID Status Reason Start Date Expiration Date V isits Requested Visits Authorized [id number] Closed Auto-Generate d Referral 10/04/2021 11/03/2022 1 1 T [facility] for referral (narrative)* Outpatient Procedure (Routine) - Authorized Specialty Diagnoses / Procedures [facility] Diagnoses 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) Procedures SPIROMETRY WITH DILATOR IF OBSTRUCTED BRNCDILAT RSPSE SPMTRY PRE&POST-BRNCDILAT Angelika Vincent MD [address] [place] [address] [facility] [place] [address] [place] [address] Referral ID Status Reason Start Date Expiration Date Visits Requested Visits Authorized [id number] Authorized Auto-Generat ed Referral 08/08/2022 09/07/2023 1 1 [facility] for referral (narrative)* Diagnostic Procedure Only (Routine) - Authorized Specialty Diagnoses / Procedures [facility] Ref[facility] To Contact US IMAGING Diagnoses Multiple thyroid nodules Procedures US THYROID/PARATHYROID US SOFT TISSUE HEAD & NECK REAL TIME IMGE Tee Thorpe PA-C [address] [place] [address] [facility] Referral ID Status Reason Start Date Expiration Date Visits Requested Visits Authorized [id number] Authorized Auto-Generat ed Referral 01/16/2023 02/15/2024 1 1 T [facility] for referral (narrative)* Diagnostic Procedure Only (Routine) - Authorized Specialty Diagnoses / Procedures [facility] Ref[facility] To [facility] Diagnoses Personal history of breast cancer Visit for screening mammogram Procedures DAMARIS SCREENING W BERLIN SCREENING DIGITAL BREAST TOMOSYNTHESIS BI SCREENING MAMMOGRAPHY BI 2-VIEW BREAST INC CAD Cleo Cannon MD [address] [facility] [place] [address] [facility] [address] [place] [address] Referral ID Status Reason Start Date Expiration Date Visits Requested Visits Authorized [id number] Authorized Auto-Generat ed Referral 04/10/2023 05/09/2024 1 1 [facility] for referral (narrative)* Outpatient Procedure (Routine) - Authorized Specialty Diagnoses / Procedures Referred By Contac t Referred To Contact [facility] Diagnoses 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) Procedures SPIROMETRY BASELINE ONLY SPMTRY W/VC EXPIRATORY EVETTE W/WO MXML VOL VNTJ Kamille Rizo PA-C [address] [place] [address] Res[facility] [place] [address] [place] [id number] Referral ID Status Reason Start Date Expiration Date Visits Requested Visits Authorized [id number] Authorized Auto-Generat ed Referral 12/24/2023 01/22/2025 1 1 [facility] for referral (narrative)* Diagnostic Procedure Only (Urgent) - Closed Specialty Diagnoses / Procedures [facility] Ref[facility] To Contact XR IMAGING Diagnoses Right hand pain Procedures XR HAND GENERAL 3V PA/LAT/OBL RIGHT RADEX HAND MINIMUM 3 VIEWS Allyson Santos APRN.CNP [address] [place] [address] [place] [address] Referral ID Status Reason Start Date Expiration Date V isits Requested Visits Authorized [id number] Closed Auto-Generate d Referral 10/17/2023 11/15/2024 1 1 [facility] for referral (narrative)* Diagnostic Procedure Only (Urgent) - Closed Specialty Diagnoses / Procedures Referred By Contac t Referred To Contact XR IMAGING Diagnoses Acute wrist pain, left Procedures XR WRIST GENERAL 3V PA/LAT/OBL LT X-RAY WRIST COMPLET MIN 3 VIEWS Gerson Shirley MD [address] [place] [address] [place] [address] Referral ID Status Reason Start Date Expiration Date V isits Requested Visits Authorized [id number] Closed Auto-Generate d Referral 04/19/2021 05/19/2022 1 1 [facility] for referral (narrative)* Diagnostic Procedure Only (Routine) - Closed Specialty Diagnoses / Procedures Referred By Contac t Referred To Contact BR IMAGING Diagnoses Personal history of breast cancer Visit for screening mammogram Procedures DAMARIS SCREENING W BERLIN SCREENING DIGITAL BREAST TOMOSYNTHESIS BI SCREENING MAMMOGRAPHY BI 2-VIEW BREAST INC CAD Cleo Cannon MD [address] [facility] [place] [address] [facility] [address] [place] [address] Referral ID Status Reason Start Date Expiration Date V isits Requested Visits Authorized [id number] Closed Auto-Generate d Referral 04/10/2023 05/09/2024 1 1 [facility] for referral (narrative)* Diagnostic Procedure Only (Urgent) - Closed Specialty Diagnoses / Procedures Referred By Contac t Referred To Contact XR IMAGING Diagnoses Acute pain of right knee Procedures XR KNEE GENERAL 4V AP BOTH/PA BOTH/LAT/MERC RIGHT RADIOLOGIC EXAM KNEE COMPLETE 4/MORE VIEWS Augie Medrano, PA [address] [place] [address] [place] [address] Referral ID Status Reason Start Date Expiration Date V isits Requested Visits Authorized [id number] Closed Auto-Generate d Referral 04/28/2024 05/28/2025 1 1 [facility] for referral (narrative)* Diagnostic Procedure Only (Urgent) - Closed Specialty Diagnoses / Procedures Referred By Contac t Referred To Contact XR IMAGING Diagnoses Acute pain of right knee Procedures XR KNEE GENERAL 4V AP BOTH/PA BOTH/LAT/MERC RIGHT RADIOLOGIC EXAM KNEE COMPLETE 4/MORE VIEWS AbAugie azevedo P, PA [address] [place] [address] [place] [id number] Referral ID Status Reason Start Date Expiration Date V isits Requested Visits Authorized [id number] Closed Auto-Generate d Referral 04/28/2024 05/28/2025 1 1 [facility] for referral (narrative)* Diagnostic Procedure Only (Urgent) - Closed Specialty Diagnoses / Procedures Referred By Contac t Referred To Contact XR IMAGING Diagnoses Right hand pain Procedures XR HAND GENERAL 3V PA/LAT/OBL RIGHT RADEX HAND MINIMUM 3 VIEWS Allyson Santos APRN.CNP [address] [place] [address] [place] [address] Referral ID Status Reason Start Date Expiration Date V isits Requested Visits Authorized [id number] Closed Auto-Generate d Referral 10/17/2023 11/15/2024 1 1 [facility] for visit Narrative* Outpatient Procedure (Routine) - Closed Specialty Diagnoses / Procedures Referred By Contac t Referred To Contact [facility] Diagnoses 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) Procedures SPIROMETRY BASELINE ONLY SPIROMETRY WO BRONCHODILATOR Kamille Rizo, CHAD [address] [facility] [address] [place] [address] Res[facility] [place] [address] [place] [address] Referral ID Status Reason Start Date Expiration Date V isits Requested Visits Authorized [id number] Closed Auto-Generate d Referral 04/12/2021 05/12/2022 1 1 [facility] for visit Narrative* Diagnostic Procedure Only (Routine) - Closed Specialty Diagnoses / Procedures Referred By Contac t Referred To Contact BR IMAGING Diagnoses Ductal carcinoma in situ (DCIS) of right breast Procedures DAMARIS DIAGNOSTIC BILAT DIAGNOSTIC MAMMOGRAPHY COMPUTER-AIDED DETCJ Cleo Mchugh MD [address] [facility] [place] [address] [facility] [address] [place] [address] Referral ID Status Reason Start Date Expiration Date V isits Requested Visits Authorized [id number] Closed Auto-Generate d Referral 10/04/2021 11/03/2022 1 1 [facility] for visit Narrative* Diagnostic Procedure Only (Routine) - Closed Specialty Diagnoses / Procedures Referred By Contac t Referred To Contact BR IMAGING Diagnoses Breast neoplasm, Tis (DCIS), right Procedures DAMARIS DIAGNOSTIC RT DIAGNOSTIC MAMMOGRAPHY COMPUTER-AIDED DETCJ Cleo Javed MD [address] [place] [address] [facility] [address] [place] [address] Referral ID Status Reason Start Date Expiration Date V isits Requested Visits Authorized [id number] Closed Auto-Generate d Referral 08/15/2022 09/14/2023 1 1 [facility] for visit Narrative* Diagnostic Procedure Only (Routine) - Closed Specialty Diagnoses / Procedures Referred By Contac t Referred To Contact BR IMAGING Diagnoses Ductal carcinoma in situ (DCIS) of right breast Procedures DAMARIS DIAGNOSTIC RIGHT DIAGNOSTIC MAMMOGRAPHY COMPUTER-AIDED DETCJ Cleo Javed MD [address] [place] [address] [facility] [address] [place] [address] Referral ID Status Reason Start Date Expiration Date V isits Requested Visits Authorized [id number] Closed Auto-Generate d Referral 10/07/2022 11/06/2023 1 1 [facility] for visit Narrative* Diagnostic Procedure Only (Urgent) - Closed Specialty Diagnoses / Procedures Referred By Contac t Referred To Contact XR IMAGING Diagnoses Right hand pain Procedures XR HAND GENERAL 3V PA/LAT/OBL RIGHT RADEX HAND MINIMUM 3 VIEWS Allyson Santos, [employer]STUD[employer]AD [address] [place] [address] [place] [address] Referral ID Status Reason Start Date Expiration Date V isits Requested Visits Authorized [id number] Closed Auto-Generate d Referral 10/17/2023 11/15/2024 1 1 [facility] for visit Narrative* Diagnostic Procedure Only (Urgent) - Closed Specialty Diagnoses / Procedures Referred By Contac t Referred To Contact XR IMAGING Diagnoses Acute wrist pain, left Procedures XR WRIST GENERAL 3V PA/LAT/OBL LT X-RAY WRIST COMPLET MIN 3 VIEWS Gerson Shirley MD [address] [place] [address] [place] [address] Referral ID Status Reason Start Date Expiration Date V isits Requested Visits Authorized [id number] Closed Auto-Generate d Referral 04/19/2021 05/19/2022 1 1 [facility] for visit Narrative* Diagnostic Procedure Only (Routine) - Closed Specialty Diagnoses / Procedures Referred By Bubba t Referred To Contact BR IMAGING Diagnoses Personal history of breast cancer Visit for screening mammogram Procedures DAMARIS SCREENING W BERLIN SCREENING DIGITAL BREAST TOMOSYNTHESIS BI SCREENING MAMMOGRAPHY BI 2-VIEW BREAST INC CAD Cleo Cannon MD [address] [place] [address] [facility] [address] [place] [address] Referral ID Status Reason Start Date Expiration Date V isits Requested Visits Authorized [id number] Closed Auto-Generate d Referral 04/10/2023 05/09/2024 1 1 [facility] for visit Narrative* Diagnostic Procedure Only (Urgent) - Closed Specialty Diagnoses / Procedures Referred By Bubba t Referred To Contact XR IMAGING Diagnoses Acute pain of right knee Procedures XR KNEE GENERAL 4V AP BOTH/PA BOTH/LAT/MERC RIGHT RADIOLOGIC EXAM KNEE COMPLETE 4/MORE VIEWS Augie Medrano PA [address] [place] [address] [place] [id number] Referral ID Status Reason Start Date Expiration Date V isits Requested Visits Authorized [id number] Closed Auto-Generate d Referral 04/28/2024 05/28/2025 1 1 [facility] Advance Directives No Advanced Directives Records FoundDocuments on File Type Date Recorded 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 ACP-Advance Directive ACP-Power of Nocturnist Physician Documents on File Type Date Recorded 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 Advance Directive(s) 09/13/2021 6:26 AM Documents on File Type Date Recorded 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 Advance Directive(s) 09/13/2021 6:26 AM Advance Directive Response Recorded Date/ Time Living Will No February 14, 2020 9:35am Power of Nocturnist Physician No February 13 9:35am Summary Purpose Family History No Family History Records FoundNo Family History Records FoundNo Family History Records FoundNo Family History Records FoundNo Family History Records FoundNo Family History Records Found Medications Administered Section Inactive Administered Medications - up to 3 most recent administrations Medication Order MAR Action Action Date Dose Rate Site ropivacaine (PF) 5 mg/mL (0.5 %) 8 mL injection (NAROPIN) 8 mL, Injection - FOR ORTHO USE ONLY, ONE TIME INJECTION, 1 dose, Starting on Fri10/19/21 at 1458, Until Fri10/19/21 at 1458 Given 10/19/2021 2:58 PM EDT 8 mL triamcinolone acetonide 80 mg injection (KENALOG 40) 80 mg, Injection - FOR ORTHO USE ONLY, ONE TIME INJECTION, 1 dose, Starting on Fri10/19/21 at 1458, Until Fri10/19/21 at 1458 Given 10/19/2021 2:58 PM EDT 80 mg Health Concerns Infection Onset Date Last Indicated Resolved Time COVID-19 Rule-Out 12/15/2021 12/15/2021 Infection Onset Date Last Indicated Resolved Time COVID-19 Rule-Out 05/13/2023 05/13/2023 Chief Complaint and Reason for Visit Chief Complaint 6 M FU L TOTAL SHOULDER RX HERE LEFT CAROTID BRUIT Reason for Visit Left carotid bruit Polyneuropathy Restless legs syndrome Chief Complaint 6 M FU LEFT CAROTID BRUIT L TOTAL SHOULDER RX HERE Reason for Visit Left carotid bruit Polyneuropathy Restless legs syndrome Reason for Referral Specialty Diagnoses / Procedures Referred By Bubba robles Referred To Contact [facility] Diagnoses Acute midline low back pain without sciatica Procedures CONSULT TO PHYSICAL THERAPY PHYSICAL THERAPY EVALUATION HIGH COMPLEX 45 MINS Tee Montgomery PA-C [address] [place] [address] [facility] [address] [place] [address] Referral ID Status Reason Start Date Expiration Date Visits Requested Visits Authorized [id number] Authorized PCP Requested Referral Auto-Generate d Referral 10/30/2022 10/30/2023 99 99 Specialty Diagnoses / Procedures Referred By Contac t Referred To Contact XR IMAGING Diagnoses Acute midline low back pain without sciatica Procedures XR LUMBAR GENERAL 3V AP/LAT/L5-S1 RADEX SPINE LUMBOSACRAL 2/3 VIEWS Tee Montgomery PA-C [address] [place] [address] X[facility] Referral ID Status Reason Start Date Expiration Date Visits Requested Visits Authorized [id number] Pending Review Auto-Generat ed Referral 10/30/2022 11/29/2023 1 1 Specialty Diagnoses / Procedures Referred By Contac t Referred To Contact Pain Management Diagnoses Acute midline low back pain without sciatica Procedures CONSULT TO PAIN MGT OFFICE/OUTPATIENT [facility] 60-74 MINUTES Tee Montgomery PA-C [address] [place] [address] Referral ID Status Reason Start Date Expiration Date Visits Requested Visits Authorized [id number] Authorized PCP Requested Referral 10/30/2022 10/30/2023 1 1 Specialty Diagnoses / Procedures Referred By Contac t Referred To Contact [facility] Diagnoses Acute midline low back pain without sciatica Procedures PT REHAB FOLLOW UP ORDER THERAPEUTIC EXERCISES RE, EA 15 MIN. Angel Ernandez, [facility] [address] [place] [address] Referral ID Status Reason Start Date Expiration Date Visits Requested Visits Authorized [id number] Pending Review PCP Requested Referral Auto-Generate d Referral 11/06/2022 02/04/2023 1 1 Specialty Diagnoses / Procedures Referred By Contac t Referred To Contact Neurology Diagnoses Restless leg Neuropathy of both feet Procedures CONSULT TO NEUROLOGY OFFICE/OUTPATIENT [facility] 60 MINUTES Tee Montgomery PA-C [address] [place] [address] Referral ID Status Reason Start Date Expiration Date Visits Requested Visits Authorized [id number] Authorized PCP Requested Referral 09/25/2023 09/24/2024 1 1 Specialty Diagnoses / Procedures Referred By Contac t Referred To Contact Physical Therapy Diagnoses Falls Procedures CONSULT TO PHYSICAL THERAPY Nadia Brambila APRN.[employer] [address] [place] [address] Referral ID Status Reason Start Date Expiration Date Visits Requested Visits Authorized [id number] Ref Not Required PCP Requested Referral 4 05/06/2025 99 99 Additional Source Comments INFORMATION SOURCE (unrecogn ized section and content) DATE CREATED AUTHOR 11/05/2020 [facility] DATE CREATED AUTHOR AUTHOR'S ORGANIZ ATION 09/23/2021 [facility] DATE CREATED AUTHOR AUTHOR'S ORGANIZ ATION 04/17/2023 [facility] DATE CREATED AUTHOR AUTHOR'S ORGANIZ ATION 01/28/2025 [facility] DATE CREATED AUTHOR AUTHOR'S ORGANIZ ATION 02/04/2025 [facility] DATE CREATED AUTHOR AUTHOR'S ORGANIZ ATION 02/05/2025 [facility] Source Comments (unrecognize d section and content) In the event this informatio n is protected by the Federal Confidentiality of Alcohol and Drug Abuse Patient Records regulations: The Federal rules restrict any use of the information to criminally investigate or prosecute any alcohol or drug abuse patient.[facility] the event this information is protected by the Federal Confidentiality of Alcohol and Drug Abuse Patient Records regulations: The Federal rules restrict any use of the information to criminally investigate or prosecute any alcohol or drug abuse patient.[facility] the event this information is protected by the Federal Confidentiality of Alcohol and Drug Abuse Patient Records regulations: The Federal rules restrict any use of the information to criminally investigate or prosecute any alcohol or drug abuse patient.[facility] the event this information is protected by the Federal Confidentiality of Alcohol and Drug Abuse Patient Records regulations: The Federal rules restrict any use of the information to criminally investigate or prosecute any alcohol or drug abuse patient.[facility] the event this information is protected by the Federal Confidentiality of Alcohol and Drug Abuse Patient Records regulations: The Federal rules restrict any use of the information to criminally investigate or prosecute any alcohol or drug abuse patient.[facility] the event this information is protected by the Federal Confidentiality of Alcohol and Drug Abuse Patient Records regulations: The Federal rules restrict any use of the information to criminally investigate or prosecute any alcohol or drug abuse patient.[facility] the event this information is protected by the Federal Confidentiality of Alcohol and Drug Abuse Patient Records regulations: The Federal rules restrict any use of the information to criminally investigate or prosecute any alcohol or drug abuse patient.[facility] the event this information is protected by the Federal Confidentiality of Alcohol and Drug Abuse Patient Records regulations: The Federal rules restrict any use of the information to criminally investigate or prosecute any alcohol or drug abuse patient.[facility] the event this information is protected by the Federal Confidentiality of Alcohol and Drug Abuse Patient Records regulations: The Federal rules restrict any use of the information to criminally investigate or prosecute any alcohol or drug abuse patient.[facility] the event this information is protected by the Federal Confidentiality of Alcohol and Drug Abuse Patient Records regulations: The Federal rules restrict any use of the information to criminally investigate or prosecute any alcohol or drug abuse patient.[facility]In the event this information is protected by the Federal Confidentiality of Alcohol and Drug Abuse Patient Records regulations: The Federal rules restrict any use of the information to criminally investigate or prosecute any alcohol or drug abuse patient.[facility]In the event this information is protected by the Federal Confidentiality of Alcohol and Drug Abuse Patient Records regulations: The Federal rules restrict any use of the information to criminally investigate or prosecute any alcohol or drug abuse patient.[facility]In the event this information is protected by the Federal Confidentiality of Alcohol and Drug Abuse Patient Records regulations: The Federal rules restrict any use of the information to criminally investigate or prosecute any alcohol or drug abuse patient.[facility] HospitalIn the event this information is protected by the Federal Confidentiality of Alcohol and Drug Abuse Patient Records regulations: The Federal rules restrict any use of the information to criminally investigate or prosecute any alcohol or drug abuse patient.[facility] HospitalIn the event this information is protected by the Federal Confidentiality of Alcohol and Drug Abuse Patient Records regulations: The Federal rules restrict any use of the information to criminally investigate or prosecute any alcohol or drug abuse patient.[facility] HospitalIn the event this information is protected by the Federal Confidentiality of Alcohol and Drug Abuse Patient Records regulations: The Federal rules restrict any use of the information to criminally investigate or prosecute any alcohol or drug abuse patient.[facility] HospitalIn the event this information is protected by the Federal Confidentiality of Alcohol and Drug Abuse Patient Records regulations: The Federal rules restrict any use of the information to criminally investigate or prosecute any alcohol or drug abuse patient.[facility] HospitalIn the event this information is protected by the Federal Confidentiality of Alcohol and Drug Abuse Patient Records regulations: The Federal rules restrict any use of the information to criminally investigate or prosecute any alcohol or drug abuse patient.[facility] HospitalIn the event this information is protected by the Federal Confidentiality of Alcohol and Drug Abuse Patient Records regulations: The Federal rules restrict any use of the information to criminally investigate or prosecute any alcohol or drug abuse patient.[facility] HospitalIn the event this information is protected by the Federal Confidentiality of Alcohol and Drug Abuse Patient Records regulations: The Federal rules restrict any use of the information to criminally investigate or prosecute any alcohol or drug abuse patient.[facility] HospitalIn the event this information is protected by the Federal Confidentiality of Alcohol and Drug Abuse Patient Records regulations: The Federal rules restrict any use of the information to criminally investigate or prosecute any alcohol or drug abuse patient.[facility] HospitalIn the event this information is protected by the Federal Confidentiality of Alcohol and Drug Abuse Patient Records regulations: The Federal rules restrict any use of the information to criminally investigate or prosecute any alcohol or drug abuse patient.[facility] HospitalIn the event this information is protected by the Federal Confidentiality of Alcohol and Drug Abuse Patient Records regulations: The Federal rules restrict any use of the information to criminally investigate or prosecute any alcohol or drug abuse patient.[facility] HospitalIn the event this information is protected by the Federal Confidentiality of Alcohol and Drug Abuse Patient Records regulations: The Federal rules restrict any use of the information to criminally investigate or prosecute any alcohol or drug abuse patient.[facility] HospitalIn the event this information is protected by the Federal Confidentiality of Alcohol and Drug Abuse Patient Records regulations: The Federal rules restrict any use of the information to criminally investigate or prosecute any alcohol or drug abuse patient.[facility] HospitalIn the event this information is protected by the Federal Confidentiality of Alcohol and Drug Abuse Patient Records regulations: The Federal rules restrict any use of the information to criminally investigate or prosecute any alcohol or drug abuse patient.[facility] HospitalIn the event this information is protected by the Federal Confidentiality of Alcohol and Drug Abuse Patient Records regulations: The Federal rules restrict any use of the information to criminally investigate or prosecute any alcohol or drug abuse patient.[facility] HospitalIn the event this information is protected by the Federal Confidentiality of Alcohol and Drug Abuse Patient Records regulations: The Federal rules restrict any use of the information to criminally investigate or prosecute any alcohol or drug abuse patient.[facility] HospitalIn the event this information is protected by the Federal Confidentiality of Alcohol and Drug Abuse Patient Records regulations: The Federal rules restrict any use of the information to criminally investigate or prosecute any alcohol or drug abuse patient.[facility] HospitalIn the event this information is protected by the Federal Confidentiality of Alcohol and Drug Abuse Patient Records regulations: The Federal rules restrict any use of the information to criminally investigate or prosecute any alcohol or drug abuse patient.[facility] HospitalIn the event this information is protected by the Federal Confidentiality of Alcohol and Drug Abuse Patient Records regulations: The Federal rules restrict any use of the information to criminally investigate or prosecute any alcohol or drug abuse patient.[facility] HospitalIn the event this information is protected by the Federal Confidentiality of Alcohol and Drug Abuse Patient Records regulations: The Federal rules restrict any use of the information to criminally investigate or prosecute any alcohol or drug abuse patient.[facility] HospitalIn the event this information is protected by the Federal Confidentiality of Alcohol and Drug Abuse Patient Records regulations: The Federal rules restrict any use of the information to criminally investigate or prosecute any alcohol or drug abuse patient.[facility] HospitalIn the event this information is protected by the Federal Confidentiality of Alcohol and Drug Abuse Patient Records regulations: The Federal rules restrict any use of the information to criminally investigate or prosecute any alcohol or drug abuse patient.[facility] HospitalIn the event this information is protected by the Federal Confidentiality of Alcohol and Drug Abuse Patient Records regulations: The Federal rules restrict any use of the information to criminally investigate or prosecute any alcohol or drug abuse patient.[facility] HospitalIn the event this information is protected by the Federal Confidentiality of Alcohol and Drug Abuse Patient Records regulations: The Federal rules restrict any use of the information to criminally investigate or prosecute any alcohol or drug abuse patient.[facility] HospitalIn the event this information is protected by the Federal Confidentiality of Alcohol and Drug Abuse Patient Records regulations: The Federal rules restrict any use of the information to criminally investigate or prosecute any alcohol or drug abuse patient.[facility] HospitalIn the event this information is protected by the Federal Confidentiality of Alcohol and Drug Abuse Patient Records regulations: The Federal rules restrict any use of the information to criminally investigate or prosecute any alcohol or drug abuse patient.[facility] HospitalIn the event this information is protected by the Federal Confidentiality of Alcohol and Drug Abuse Patient Records regulations: The Federal rules restrict any use of the information to criminally investigate or prosecute any alcohol or drug abuse patient.[facility] HospitalIn the event this information is protected by the Federal Confidentiality of Alcohol and Drug Abuse Patient Records regulations: The Federal rules restrict any use of the information to criminally investigate or prosecute any alcohol or drug abuse patient.[facility] HospitalIn the event this information is protected by the Federal Confidentiality of Alcohol and Drug Abuse Patient Records regulations: The Federal rules restrict any use of the information to criminally investigate or prosecute any alcohol or drug abuse patient.[facility] HospitalIn the event this information is protected by the Federal Confidentiality of Alcohol and Drug Abuse Patient Records regulations: The Federal rules restrict any use of the information to criminally investigate or prosecute any alcohol or drug abuse patient.[facility] HospitalIn the event this information is protected by the Federal Confidentiality of Alcohol and Drug Abuse Patient Records regulations: The Federal rules restrict any use of the information to criminally investigate or prosecute any alcohol or drug abuse patient.[facility] HospitalIn the event this information is protected by the Federal Confidentiality of Alcohol and Drug Abuse Patient Records regulations: The Federal rules restrict any use of the information to criminally investigate or prosecute any alcohol or drug abuse patient.[facility] HospitalIn the event this information is protected by the Federal Confidentiality of Alcohol and Drug Abuse Patient Records regulations: The Federal rules restrict any use of the information to criminally investigate or prosecute any alcohol or drug abuse patient.[facility] HospitalIn the event this information is protected by the Federal Confidentiality of Alcohol and Drug Abuse Patient Records regulations: The Federal rules restrict any use of the information to criminally investigate or prosecute any alcohol or drug abuse patient.[facility] HospitalIn the event this information is protected by the Federal Confidentiality of Alcohol and Drug Abuse Patient Records regulations: The Federal rules restrict any use of the information to criminally investigate or prosecute any alcohol or drug abuse patient.[facility] HospitalIn the event this information is protected by the Federal Confidentiality of Alcohol and Drug Abuse Patient Records regulations: The Federal rules restrict any use of the information to criminally investigate or prosecute any alcohol or drug abuse patient.[facility] HospitalIn the event this information is protected by the Federal Confidentiality of Alcohol and Drug Abuse Patient Records regulations: The Federal rules restrict any use of the information to criminally investigate or prosecute any alcohol or drug abuse patient.[facility] HospitalIn the event this information is protected by the Federal Confidentiality of Alcohol and Drug Abuse Patient Records regulations: The Federal rules restrict any use of the information to criminally investigate or prosecute any alcohol or drug abuse patient.[facility] HospitalIn the event this information is protected by the Federal Confidentiality of Alcohol and Drug Abuse Patient Records regulations: The Federal rules restrict any use of the information to criminally investigate or prosecute any alcohol or drug abuse patient.[facility] HospitalIn the event this information is protected by the Federal Confidentiality of Alcohol and Drug Abuse Patient Records regulations: The Federal rules restrict any use of the information to criminally investigate or prosecute any alcohol or drug abuse patient.[facility] HospitalIn the event this information is protected by the Federal Confidentiality of Alcohol and Drug Abuse Patient Records regulations: The Federal rules restrict any use of the information to criminally investigate or prosecute any alcohol or drug abuse patient.[facility] HospitalIn the event this information is protected by the Federal Confidentiality of Alcohol and Drug Abuse Patient Records regulations: The Federal rules restrict any use of the information to criminally investigate or prosecute any alcohol or drug abuse patient.[facility] HospitalIn the event this information is protected by the Federal Confidentiality of Alcohol and Drug Abuse Patient Records regulations: The Federal rules restrict any use of the information to criminally investigate or prosecute any alcohol or drug abuse patient.[facility] HospitalIn the event this information is protected by the Federal Confidentiality of Alcohol and Drug Abuse Patient Records regulations: The Federal rules restrict any use of the information to criminally investigate or prosecute any alcohol or drug abuse patient.[facility] HospitalIn the event this information is protected by the Federal Confidentiality of Alcohol and Drug Abuse Patient Records regulations: The Federal rules restrict any use of the information to criminally investigate or prosecute any alcohol or drug abuse patient.[facility] HospitalIn the event this information is protected by the Federal Confidentiality of Alcohol and Drug Abuse Patient Records regulations: The Federal rules restrict any use of the information to criminally investigate or prosecute any alcohol or drug abuse patient.[facility] HospitalIn the event this information is protected by the Federal Confidentiality of Alcohol and Drug Abuse Patient Records regulations: The Federal rules restrict any use of the information to criminally investigate or prosecute any alcohol or drug abuse patient.[facility] HospitalIn the event this information is protected by the Federal Confidentiality of Alcohol and Drug Abuse Patient Records regulations: The Federal rules restrict any use of the information to criminally investigate or prosecute any alcohol or drug abuse patient.[facility] HospitalIn the event this information is protected by the Federal Confidentiality of Alcohol and Drug Abuse Patient Records regulations: The Federal rules restrict any use of the information to criminally investigate or prosecute any alcohol or drug abuse patient.[facility] HospitalIn the event this information is protected by the Federal Confidentiality of Alcohol and Drug Abuse Patient Records regulations: The Federal rules restrict any use of the information to criminally investigate or prosecute any alcohol or drug abuse patient.[facility] HospitalIn the event this information is protected by the Federal Confidentiality of Alcohol and Drug Abuse Patient Records regulations: The Federal rules restrict any use of the information to criminally investigate or prosecute any alcohol or drug abuse patient.[facility]In the event this information is protected by the Federal Confidentiality of Alcohol and Drug Abuse Patient Records regulations: The Federal rules restrict any use of the information to criminally investigate or prosecute any alcohol or drug abuse patient.[facility] HospitalIn the event this information is protected by the Federal Confidentiality of Alcohol and Drug Abuse Patient Records regulations: The Federal rules restrict any use of the information to criminally investigate or prosecute any alcohol or drug abuse patient.[facility] HospitalIn the event this information is protected by the Federal Confidentiality of Alcohol and Drug Abuse Patient Records regulations: The Federal rules restrict any use of the information to criminally investigate or prosecute any alcohol or drug abuse patient.[facility] HospitalIn the event this information is protected by the Federal Confidentiality of Alcohol and Drug Abuse Patient Records regulations: The Federal rules restrict any use of the information to criminally investigate or prosecute any alcohol or drug abuse patient.[facility] HospitalIn the event this information is protected by the Federal Confidentiality of Alcohol and Drug Abuse Patient Records regulations: The Federal rules restrict any use of the information to criminally investigate or prosecute any alcohol or drug abuse patient.[facility] HospitalIn the event this information is protected by the Federal Confidentiality of Alcohol and Drug Abuse Patient Records regulations: The Federal rules restrict any use of the information to criminally investigate or prosecute any alcohol or drug abuse patient.[facility] HospitalIn the event this information is protected by the Federal Confidentiality of Alcohol and Drug Abuse Patient Records regulations: The Federal rules restrict any use of the information to criminally investigate or prosecute any alcohol or drug abuse patient.[facility] HospitalIn the event this information is protected by the Federal Confidentiality of Alcohol and Drug Abuse Patient Records regulations: The Federal rules restrict any use of the information to criminally investigate or prosecute any alcohol or drug abuse patient.[facility] HospitalIn the event this information is protected by the Federal Confidentiality of Alcohol and Drug Abuse Patient Records regulations: The Federal rules restrict any use of the information to criminally investigate or prosecute any alcohol or drug abuse patient.[facility] HospitalIn the event this information is protected by the Federal Confidentiality of Alcohol and Drug Abuse Patient Records regulations: The Federal rules restrict any use of the information to criminally investigate or prosecute any alcohol or drug abuse patient.[facility] HospitalIn the event this information is protected by the Federal Confidentiality of Alcohol and Drug Abuse Patient Records regulations: The Federal rules restrict any use of the information to criminally investigate or prosecute any alcohol or drug abuse patient.[facility] HospitalIn the event this information is protected by the Federal Confidentiality of Alcohol and Drug Abuse Patient Records regulations: The Federal rules restrict any use of the information to criminally investigate or prosecute any alcohol or drug abuse patient.[facility] HospitalIn the event this information is protected by the Federal Confidentiality of Alcohol and Drug Abuse Patient Records regulations: The Federal rules restrict any use of the information to criminally investigate or prosecute any alcohol or drug abuse patient.[facility] HospitalIn the event this information is protected by the Federal Confidentiality of Alcohol and Drug Abuse Patient Records regulations: The Federal rules restrict any use of the information to criminally investigate or prosecute any alcohol or drug abuse patient.[facility] HospitalIn the event this information is protected by the Federal Confidentiality of Alcohol and Drug Abuse Patient Records regulations: The Federal rules restrict any use of the information to criminally investigate or prosecute any alcohol or drug abuse patient.[facility] HospitalIn the event this information is protected by the Federal Confidentiality of Alcohol and Drug Abuse Patient Records regulations: The Federal rules restrict any use of the information to criminally investigate or prosecute any alcohol or drug abuse patient.[facility] HospitalIn the event this information is protected by the Federal Confidentiality of Alcohol and Drug Abuse Patient Records regulations: The Federal rules restrict any use of the information to criminally investigate or prosecute any alcohol or drug abuse patient.[facility] HospitalIn the event this information is protected by the Federal Confidentiality of Alcohol and Drug Abuse Patient Records regulations: The Federal rules restrict any use of the information to criminally investigate or prosecute any alcohol or drug abuse patient.[facility] HospitalIn the event this information is protected by the Federal Confidentiality of Alcohol and Drug Abuse Patient Records regulations: The Federal rules restrict any use of the information to criminally investigate or prosecute any alcohol or drug abuse patient.[facility] HospitalIn the event this information is protected by the Federal Confidentiality of Alcohol and Drug Abuse Patient Records regulations: The Federal rules restrict any use of the information to criminally investigate or prosecute any alcohol or drug abuse patient.[facility] HospitalIn the event this information is protected by the Federal Confidentiality of Alcohol and Drug Abuse Patient Records regulations: The Federal rules restrict any use of the information to criminally investigate or prosecute any alcohol or drug abuse patient.[facility] HospitalIn the event this information is protected by the Federal Confidentiality of Alcohol and Drug Abuse Patient Records regulations: The Federal rules restrict any use of the information to criminally investigate or prosecute any alcohol or drug abuse patient.[facility] HospitalIn the event this information is protected by the Federal Confidentiality of Alcohol and Drug Abuse Patient Records regulations: The Federal rules restrict any use of the information to criminally investigate or prosecute any alcohol or drug abuse patient.[facility] HospitalIn the event this information is protected by the Federal Confidentiality of Alcohol and Drug Abuse Patient Records regulations: The Federal rules restrict any use of the information to criminally investigate or prosecute any alcohol or drug abuse patient.[facility] HospitalIn the event this information is protected by the Federal Confidentiality of Alcohol and Drug Abuse Patient Records regulations: The Federal rules restrict any use of the information to criminally investigate or prosecute any alcohol or drug abuse patient.[facility] HospitalIn the event this information is protected by the Federal Confidentiality of Alcohol and Drug Abuse Patient Records regulations: The Federal rules restrict any use of the information to criminally investigate or prosecute any alcohol or drug abuse patient.[facility] HospitalIn the event this information is protected by the Federal Confidentiality of Alcohol and Drug Abuse Patient Records regulations: The Federal rules restrict any use of the information to criminally investigate or prosecute any alcohol or drug abuse patient.[facility] HospitalIn the event this information is protected by the Federal Confidentiality of Alcohol and Drug Abuse Patient Records regulations: The Federal rules restrict any use of the information to criminally investigate or prosecute any alcohol or drug abuse patient.[facility] HospitalIn the event this information is protected by the Federal Confidentiality of Alcohol and Drug Abuse Patient Records regulations: The Federal rules restrict any use of the information to criminally investigate or prosecute any alcohol or drug abuse patient.[facility] HospitalIn the event this information is protected by the Federal Confidentiality of Alcohol and Drug Abuse Patient Records regulations: The Federal rules restrict any use of the information to criminally investigate or prosecute any alcohol or drug abuse patient.[facility] HospitalIn the event this information is protected by the Federal Confidentiality of Alcohol and Drug Abuse Patient Records regulations: The Federal rules restrict any use of the information to criminally investigate or prosecute any alcohol or drug abuse patient.[facility] HospitalIn the event this information is protected by the Federal Confidentiality of Alcohol and Drug Abuse Patient Records regulations: The Federal rules restrict any use of the information to criminally investigate or prosecute any alcohol or drug abuse patient.[facility] HospitalIn the event this information is protected by the Federal Confidentiality of Alcohol and Drug Abuse Patient Records regulations: The Federal rules restrict any use of the information to criminally investigate or prosecute any alcohol or drug abuse patient.[facility] HospitalIn the event this information is protected by the Federal Confidentiality of Alcohol and Drug Abuse Patient Records regulations: The Federal rules restrict any use of the information to criminally investigate or prosecute any alcohol or drug abuse patient.[facility] HospitalIn the event this information is protected by the Federal Confidentiality of Alcohol and Drug Abuse Patient Records regulations: The Federal rules restrict any use of the information to criminally investigate or prosecute any alcohol or drug abuse patient.[facility] HospitalIn the event this information is protected by the Federal Confidentiality of Alcohol and Drug Abuse Patient Records regulations: The Federal rules restrict any use of the information to criminally investigate or prosecute any alcohol or drug abuse patient.[facility] HospitalIn the event this information is protected by the Federal Confidentiality of Alcohol and Drug Abuse Patient Records regulations: The Federal rules restrict any use of the information to criminally investigate or prosecute any alcohol or drug abuse patient.[facility] HospitalIn the event this information is protected by the Federal Confidentiality of Alcohol and Drug Abuse Patient Records regulations: The Federal rules restrict any use of the information to criminally investigate or prosecute any alcohol or drug abuse patient.[facility] HospitalIn the event this information is protected by the Federal Confidentiality of Alcohol and Drug Abuse Patient Records regulations: The Federal rules restrict any use of the information to criminally investigate or prosecute any alcohol or drug abuse patient.[facility] HospitalIn the event this information is protected by the Federal Confidentiality of Alcohol and Drug Abuse Patient Records regulations: The Federal rules restrict any use of the information to criminally investigate or prosecute any alcohol or drug abuse patient.[facility] HospitalIn the event this information is protected by the Federal Confidentiality of Alcohol and Drug Abuse Patient Records regulations: The Federal rules restrict any use of the information to criminally investigate or prosecute any alcohol or drug abuse patient.[facility] HospitalIn the event this information is protected by the Federal Confidentiality of Alcohol and Drug Abuse Patient Records regulations: The Federal rules restrict any use of the information to criminally investigate or prosecute any alcohol or drug abuse patient.[facility] HospitalIn the event this information is protected by the Federal Confidentiality of Alcohol and Drug Abuse Patient Records regulations: The Federal rules restrict any use of the information to criminally investigate or prosecute any alcohol or drug abuse patient.[facility] HospitalIn the event this information is protected by the Federal Confidentiality of Alcohol and Drug Abuse Patient Records regulations: The Federal rules restrict any use of the information to criminally investigate or prosecute any alcohol or drug abuse patient.[facility] HospitalIn the event this information is protected by the Federal Confidentiality of Alcohol and Drug Abuse Patient Records regulations: The Federal rules restrict any use of the information to criminally investigate or prosecute any alcohol or drug abuse patient.[facility] HospitalIn the event this information is protected by the Federal Confidentiality of Alcohol and Drug Abuse Patient Records regulations: The Federal rules restrict any use of the information to criminally investigate or prosecute any alcohol or drug abuse patient.[facility] HospitalIn the event this information is protected by the Federal Confidentiality of Alcohol and Drug Abuse Patient Records regulations: The Federal rules restrict any use of the information to criminally investigate or prosecute any alcohol or drug abuse patient.[facility] HospitalIn the event this information is protected by the Federal Confidentiality of Alcohol and Drug Abuse Patient Records regulations: The Federal rules restrict any use of the information to criminally investigate or prosecute any alcohol or drug abuse patient.[facility] HospitalIn the event this information is protected by the Federal Confidentiality of Alcohol and Drug Abuse Patient Records regulations: The Federal rules restrict any use of the information to criminally investigate or prosecute any alcohol or drug abuse patient.[facility] HospitalIn the event this information is protected by the Federal Confidentiality of Alcohol and Drug Abuse Patient Records regulations: The Federal rules restrict any use of the information to criminally investigate or prosecute any alcohol or drug abuse patient.[facility] HospitalIn the event this information is protected by the Federal Confidentiality of Alcohol and Drug Abuse Patient Records regulations: The Federal rules restrict any use of the information to criminally investigate or prosecute any alcohol or drug abuse patient.[facility] HospitalIn the event this information is protected by the Federal Confidentiality of Alcohol and Drug Abuse Patient Records regulations: The Federal rules restrict any use of the information to criminally investigate or prosecute any alcohol or drug abuse patient.[facility] HospitalIn the event this information is protected by the Federal Confidentiality of Alcohol and Drug Abuse Patient Records regulations: The Federal rules restrict any use of the information to criminally investigate or prosecute any alcohol or drug abuse patient.[facility] HospitalIn the event this information is protected by the Federal Confidentiality of Alcohol and Drug Abuse Patient Records regulations: The Federal rules restrict any use of the information to criminally investigate or prosecute any alcohol or drug abuse patient.[facility] HospitalIn the event this information is protected by the Federal Confidentiality of Alcohol and Drug Abuse Patient Records regulations: The Federal rules restrict any use of the information to criminally investigate or prosecute any alcohol or drug abuse patient.[facility] HospitalIn the event this information is protected by the Federal Confidentiality of Alcohol and Drug Abuse Patient Records regulations: The Federal rules restrict any use of the information to criminally investigate or prosecute any alcohol or drug abuse patient.[facility] HospitalIn the event this information is protected by the Federal Confidentiality of Alcohol and Drug Abuse Patient Records regulations: The Federal rules restrict any use of the information to criminally investigate or prosecute any alcohol or drug abuse patient.[facility] HospitalIn the event this information is protected by the Federal Confidentiality of Alcohol and Drug Abuse Patient Records regulations: The Federal rules restrict any use of the information to criminally investigate or prosecute any alcohol or drug abuse patient.[facility] HospitalIn the event this information is protected by the Federal Confidentiality of Alcohol and Drug Abuse Patient Records regulations: The Federal rules restrict any use of the information to criminally investigate or prosecute any alcohol or drug abuse patient.[facility] HospitalIn the event this information is protected by the Federal Confidentiality of Alcohol and Drug Abuse Patient Records regulations: The Federal rules restrict any use of the information to criminally investigate or prosecute any alcohol or drug abuse patient.[facility] HospitalIn the event this information is protected by the Federal Confidentiality of Alcohol and Drug Abuse Patient Records regulations: The Federal rules restrict any use of the information to criminally investigate or prosecute any alcohol or drug abuse patient.[facility] HospitalIn the event this information is protected by the Federal Confidentiality of Alcohol and Drug Abuse Patient Records regulations: The Federal rules restrict any use of the information to criminally investigate or prosecute any alcohol or drug abuse patient.[facility] HospitalIn the event this information is protected by the Federal Confidentiality of Alcohol and Drug Abuse Patient Records regulations: The Federal rules restrict any use of the information to criminally investigate or prosecute any alcohol or drug abuse patient.[facility] HospitalIn the event this information is protected by the Federal Confidentiality of Alcohol and Drug Abuse Patient Records regulations: The Federal rules restrict any use of the information to criminally investigate or prosecute any alcohol or drug abuse patient.[facility] HospitalIn the event this information is protected by the Federal Confidentiality of Alcohol and Drug Abuse Patient Records regulations: The Federal rules restrict any use of the information to criminally investigate or prosecute any alcohol or drug abuse patient.[facility] HospitalIn the event this information is protected by the Federal Confidentiality of Alcohol and Drug Abuse Patient Records regulations: The Federal rules restrict any use of the information to criminally investigate or prosecute any alcohol or drug abuse patient.[facility] HospitalIn the event this information is protected by the Federal Confidentiality of Alcohol and Drug Abuse Patient Records regulations: The Federal rules restrict any use of the information to criminally investigate or prosecute any alcohol or drug abuse patient.[facility] HospitalIn the event this information is protected by the Federal Confidentiality of Alcohol and Drug Abuse Patient Records regulations: The Federal rules restrict any use of the information to criminally investigate or prosecute any alcohol or drug abuse patient.[facility] HospitalIn the event this information is protected by the Federal Confidentiality of Alcohol and Drug Abuse Patient Records regulations: The Federal rules restrict any use of the information to criminally investigate or prosecute any alcohol or drug abuse patient.[facility] HospitalIn the event this information is protected by the Federal Confidentiality of Alcohol and Drug Abuse Patient Records regulations: The Federal rules restrict any use of the information to criminally investigate or prosecute any alcohol or drug abuse patient.[facility] HospitalIn the event this information is protected by the Federal Confidentiality of Alcohol and Drug Abuse Patient Records regulations: The Federal rules restrict any use of the information to criminally investigate or prosecute any alcohol or drug abuse patient.[facility] HospitalIn the event this information is protected by the Federal Confidentiality of Alcohol and Drug Abuse Patient Records regulations: The Federal rules restrict any use of the information to criminally investigate or prosecute any alcohol or drug abuse patient.[facility] HospitalIn the event this information is protected by the Federal Confidentiality of Alcohol and Drug Abuse Patient Records regulations: The Federal rules restrict any use of the information to criminally investigate or prosecute any alcohol or drug abuse patient.[facility] HospitalIn the event this information is protected by the Federal Confidentiality of Alcohol and Drug Abuse Patient Records regulations: The Federal rules restrict any use of the information to criminally investigate or prosecute any alcohol or drug abuse patient.[facility] HospitalIn the event this information is protected by the Federal Confidentiality of Alcohol and Drug Abuse Patient Records regulations: The Federal rules restrict any use of the information to criminally investigate or prosecute any alcohol or drug abuse patient.[facility] HospitalIn the event this information is protected by the Federal Confidentiality of Alcohol and Drug Abuse Patient Records regulations: The Federal rules restrict any use of the information to criminally investigate or prosecute any alcohol or drug abuse patient.[facility] HospitalIn the event this information is protected by the Federal Confidentiality of Alcohol and Drug Abuse Patient Records regulations: The Federal rules restrict any use of the information to criminally investigate or prosecute any alcohol or drug abuse patient.[facility] HospitalIn the event this information is protected by the Federal Confidentiality of Alcohol and Drug Abuse Patient Records regulations: The Federal rules restrict any use of the information to criminally investigate or prosecute any alcohol or drug abuse patient.[facility] HospitalIn the event this information is protected by the Federal Confidentiality of Alcohol and Drug Abuse Patient Records regulations: The Federal rules restrict any use of the information to criminally investigate or prosecute any alcohol or drug abuse patient.[facility] HospitalIn the event this information is protected by the Federal Confidentiality of Alcohol and Drug Abuse Patient Records regulations: The Federal rules restrict any use of the information to criminally investigate or prosecute any alcohol or drug abuse patient.[facility] HospitalIn the event this information is protected by the Federal Confidentiality of Alcohol and Drug Abuse Patient Records regulations: The Federal rules restrict any use of the information to criminally investigate or prosecute any alcohol or drug abuse patient.[facility] HospitalIn the event this information is protected by the Federal Confidentiality of Alcohol and Drug Abuse Patient Records regulations: The Federal rules restrict any use of the information to criminally investigate or prosecute any alcohol or drug abuse patient.[facility] HospitalIn the event this information is protected by the Federal Confidentiality of Alcohol and Drug Abuse Patient Records regulations: The Federal rules restrict any use of the information to criminally investigate or prosecute any alcohol or drug abuse patient.[facility] HospitalIn the event this information is protected by the Federal Confidentiality of Alcohol and Drug Abuse Patient Records regulations: The Federal rules restrict any use of the information to criminally investigate or prosecute any alcohol or drug abuse patient.[facility] HospitalIn the event this information is protected by the Federal Confidentiality of Alcohol and Drug Abuse Patient Records regulations: The Federal rules restrict any use of the information to criminally investigate or prosecute any alcohol or drug abuse patient.[facility] Hospital[facility] the event this information is protected by the Federal Confidentiality of Alcohol and Drug Abuse Patient Records regulations: The Federal rules restrict any use of the information to criminally investigate or prosecute any alcohol or drug abuse patient.[facility] HospitalIn the event this information is protected by the Federal Confidentiality of Alcohol and Drug Abuse Patient Records regulations: The Federal rules restrict any use of the information to criminally investigate or prosecute any alcohol or drug abuse patient.[facility] Hospital[facility] the event this information is protected by the Federal Confidentiality of Alcohol and Drug Abuse Patient Records regulations: The Federal rules restrict any use of the information to criminally investigate or prosecute any alcohol or drug abuse patient.[facility] HospitalIn the event this information is protected by the Federal Confidentiality of Alcohol and Drug Abuse Patient Records regulations: The Federal rules restrict any use of the information to criminally investigate or prosecute any alcohol or drug abuse patient.[facility] Care Teams (unrecognized sec tion and content) Joss House Keeper Relationship Specialty Start Date End Date Bang Holland MD [address] [place], [place] [address] PCP - General Family Practice 03/25/13 Calista Vee, inclined railway operatorShoulder Boner 03/14/21 Joss House Keeper Relationship Specialty Start Date End Date Bang Holland MD [address] [place] [address] PCP - General Family Practice 03/25/13 Calista Vee inclined railway operatorShoulder Boner 03/14/21 Joss House Keeper Relationship Specialty Start Date End Date Bang Holland MD [address] [place] [address] PCP - General Family Practice 03/25/13 Calista Vee, inclined railway operatorShoulder Boner 03/14/21 Joss House Keeper Relationship Specialty Start Date End Date Bang Holland MD [address] [place] [address] PCP - General Family Practice 03/25/13 Calista Vee inclined railway operatorShoulder Boner 03/14/21 Joss House Keeper Relationship Specialty Start Date End Date Bang Holland MD [address] [place] [address] PCP - General Family Practice 03/25/13 Calista Vee inclined railway operatorShoulder Boner 03/14/21 Joss House Keeper Relationship Specialty Start Date End Date Bang Holland MD [address] [place] [address] PCP - General Family Practice 03/25/13 Calista Vee, inclined railway operatorShoulder Boner 03/14/21 Joss House Keeper Relationship Specialty Start Date End Date Bang Holland MD [address] [place] [address] PCP - General Family Practice 03/25/13 Calista Vee, inclined railway operatorShoulder Boner 03/14/21 Joss House Keeper Relationship Specialty Start Date End Date Bang Holland MD [address] [place] [address] PCP - General Family Practice 03/25/13 Calista Vee, inclined railway operatorShoulder Boner 03/14/21 Joss House Keeper Relationship Specialty Start Date End Date Bang Holland MD [address] [place] [address] PCP - General Family Practice 03/25/13 Calista Vee, RN [address] [place] [place] [address] Shoulder Boner 03/14/21 Joss House Keeper Relationship Specialty Start Date End Date Bang Holland MD [address] [place] [address] PCP - General Family Practice 03/25/13 Calista Vee, RN [address] [facility] [place] [address] Shoulder Boner 03/14/21 Joss House Keeper Relationship Specialty Start Date End Date Bang Holland MD [address] [place] [address] PCP - General Family Practice 03/25/13 Calista Vee, RN [address] [facility] [address] Shoulder Boner 03/14/21 Joss House Keeper Relationship Specialty Start Date End Date Bang Holland MD [address] [place] [address] PCP - General Family Practice 03/25/13 Calista Vee, RN [address] [facility] [address] Shoulder Boner 03/14/21 Joss House Keeper Relationship Specialty Start Date End Date Bang Holland MD [address] [place] [address] PCP - General Family Practice 03/25/13 Calista Vee, RN [address] [place] [address] Shoulder Boner 03/14/21 Joss House Keeper Relationship Specialty Start Date End Date Bang Holland MD [address] [place] [address] PCP - General Family Practice 03/25/13 Calista Vee, RN [address] [place] [address] Shoulder Boner 03/14/21 Joss House Keeper Relationship Specialty Start Date End Date Bang Holland MD [address] [place] [address] PCP - General Family Practice 03/25/13 Calista Vee, RN [address] [place] [address] Shoulder Boner 03/14/21 Joss House Keeper Relationship Specialty Start Date End Date Bang Holland MD [address] [place] [address] PCP - General Family Practice 03/25/13 Calista Vee, RN [address] [place] [address] Shoulder Boner 03/14/21 Joss House Keeper Relationship Specialty Start Date End Date Bang Holland MD [address] [place] [address] PCP - General Family Practice 03/25/13 Calista Vee, RN [address] [place] [address] Shoulder Boner 03/14/21 Joss House Keeper Relationship Specialty Start Date End Date Bang Holland MD [address] [place] [address] PCP - General Family Practice 03/25/13 Calista Vee, RN [address] [place] [address] Shoulder Boner 03/14/21 Joss House Keeper Relationship Specialty Start Date End Date Bang Holland MD [address] [place] [address] PCP - General Family Practice 03/25/13 Calista Vee, RN [address] [facility] [place] [address] Shoulder Boner 03/14/21 Joss House Keeper Relationship Specialty Start Date End Date Bang Holland MD [address] [place] [address] PCP - General Family Medicine 03/25/13 Calista Vee, RN [address] [facility] [place] [address] Shoulder Boner 03/14/21 Joss House Keeper Relationship Specialty Start Date End Date Bang Holland MD [address] [place] [address] PCP - General Family Medicine 03/25/13 Calista Vee, RN [address] [facility] [place] [address] Shoulder Boner 03/14/21 Joss House Keeper Relationship Specialty Start Date End Date Bang Holland MD [address] [place] [address] PCP - General Family Medicine 03/25/13 Calista Vee, RN [address] [place] [address] Shoulder Boner 03/14/21 Joss House Keeper Relationship Specialty Start Date End Date Bang Holland MD [address] [place] [address] PCP - General Family Medicine 03/25/13 Calista Vee, RN [address] [facility] [address] Shoulder Boner 03/14/21 Joss House Keeper Relationship Specialty Start Date End Date Bang Holland MD [address] [place] [address] PCP - General Family Medicine 03/25/13 Sergei Lauren, RN [address] [place] [address] Shoulder Boner [facility] Medicine 03/14/21 Joss House Keeper Relationship Specialty Start Date End Date Bang Holland MD [address] [place] [address] PCP - General Family Medicine 03/25/13 Sergei Lauren RN [address] [facility] [place] [address] Shoulder Boner [facility] Medicine 03/14/21 Joss House Keeper Relationship Specialty Start Date End Date Bang Holland MD [address] [place] [address] PCP - General Family Medicine 03/25/13 Sergei Lauren RN [address] [facility] [place] [address] Shoulder Boner [facility] Medicine 05/15/22 Joss House Keeper Relationship Specialty Start Date End Date Bang Holland MD [address] [place] [address] PCP - General Family Medicine 03/25/13 Sergei Lauren RN [address] [facility] [place] [address] Shoulder Boner Family Medicine 05/15/22 Team Status: Active Member Role Status Dates Dr. Bang Holland MD Family Provider Active Dr. Bang Holland MD Primary Care Provider Active Team Status: Inactive Member Role Status Dates Dr. Bang Holland MD Primary Care Provider, Referring Provider Active Dr. Reilly Taylor MD Attending Provider Active Team Status: Active Member Role Status Dates Dr. Bang Holland MD Primary Care Provider Active Dr. Edwin Caba MD Attending Provider Active Dr. Reilly Taylor MD Referring Provider Active Team Status: Inactive Member Role Status Dates Dr. Bang Holland MD Primary Care Provider Active JOVI CRAMER Attending Provider, Referring Provid er Active Team Status: Inactive Member Role Status Dates Dr. Bang Holland MD Primary Care Provider Active Dr. Reilly Taylor MD Attending Provider Active Joss House Keeper Relationship Specialty Start Date End Date Bang Holland MD [address] [place] [address] PCP - General Family Medicine 03/25/13 Sergei Lauren, RN [address] [place] [place] [address] Shoulder Boner Family [facility] 05/15/22 Joss House Keeper Relationship Specialty Start Date End Date Bang Holland MD [address] [place] [address] PCP - General Family Medicine 03/25/13 Sergei Lauren, RN [address] [facility] [place] [address] Shoulder Boner Family [facility] 05/15/22 Joss House Keeper Relationship Specialty Start Date End Date Bang Holland MD [address] [place] [address] PCP - General Family Medicine 03/25/13 Sergei Lauren RN [address] [facility] [place] [address] Shoulder Boner Family Medicine 05/15/22 Joss House Keeper Relationship Specialty Start Date End Date Bang Holland MD [address] [place] [address] PCP - General Family Medicine 03/25/13 Sergei Lauren RN [address] [facility] [place] [address] Shoulder Boner Family [facility] 05/15/22 Joss House Keeper Relationship Specialty Start Date End Date Bang Holland MD [address] [place] [address] PCP - General Family Medicine 03/25/13 Sergei Lauren RN [address] [facility] [place] [address] Shoulder Boner Family Medicine 05/15/22 Joss House Keeper Relationship Specialty Start Date End Date Bang Holland MD [address] [place] [address] PCP - General Family Medicine 03/25/13 Sergei Lauren, RN [address] [place] [address] Shoulder Boner [facility] 05/15/22 Joss House Keeper Relationship Specialty Start Date End Date Bang Holland MD [address] [place] [address] PCP - General Family Medicine 03/25/13 Sergei Lauren, RN [address] [facility] [address] Shoulder Boner Family [facility] 05/15/22 Joss House Keeper Relationship Specialty Start Date End Date Bang Holland MD [address] [place] [address] PCP - General Family Medicine 03/25/13 Calista Vee RN [address] [place] [address] Shoulder Boner 03/14/2105/15/22 Sergei Lauren, YAJAIRA [address] [place] [address] Shoulder Boner [facility] 05/15/22 Joss House Keeper Relationship Specialty Start Date End Date Bang Holland MD [address] [place] [address] PCP - General Family Medicine 03/25/13 Sergei Lauren, RN [address] [place] [address] Shoulder Boner Family [facility] 05/15/22 Joss House Keeper Relationship Specialty Start Date End Date Bang Holland MD [address] [place] [address] PCP - General Family Medicine 03/25/13 Sergei Lauren, RN [address] [place] [address] Shoulder Boner Family Medicine 05/15/22 Joss House Keeper Relationship Specialty Start Date End Date Bang Holland MD [address] [place] [address] PCP - General Family Medicine 03/25/13 Sergei Lauren, RN [address] [facility] [place] [address] Shoulder Boner Family [facility] 05/15/22 Joss House Keeper Relationship Specialty Start Date End Date Bang Holland MD [address] [place] [address] PCP - General Family Medicine 03/25/13 Sergei Lauren, YAJAIRA [address] [facility] [place] [address] Shoulder Boner Family [facility] 05/15/22 Joss House Keeper Relationship Specialty Start Date End Date Bang Holland MD [address] [place] [address] PCP - General Family Medicine 03/25/13 Sergei Lauren RN [address] [place] [address] Shoulder Boner [facility] 05/15/22 Joss House Keeper Relationship Specialty Start Date End Date Bang Holland MD [address] [place] [address] PCP - General Family Medicine 03/25/13 Sergei Lauren RN [address] [facility] [address] Shoulder Boner Family [facility] 05/15/22 Joss House Keeper Relationship Specialty Start Date End Date Tee Montgomery PA-C [address] [place] [address] PCP - General Family Medicine 01/16/23 Sergei Lauren, YAJAIRA [address] [place] [address] Shoulder Boner Family [facility] 05/15/22 Joss House Keeper Relationship Specialty Start Date End Date Tee Montgomery [address] [place] [address] PCP - General Physician Business English Instructor 01/28/23 Joss House Keeper Relationship Specialty Start Date End Date Tee Montgomery PA-C [address] [place] [address] PCP - General Family Medicine 01/16/23 Sergei Lauren RN [address] [place] [address] Shoulder Boner [facility] 05/15/22 Joss House Keeper Relationship Specialty Start Date End Date Tee Montgomery PA-C [address] [place] [address] PCP - General Family Medicine 01/16/23 Sergei Lauren RN [address] [facility] [address] Shoulder Boner [facility] 05/15/22 Joss House Keeper Relationship Specialty Start Date End Date Tee Montgomery PA-C [address] [place] [address] PCP - General Family Medicine 01/16/23 Sergei Lauren RN [address] [place] [address] Shoulder Boner [facility] 05/15/22 Joss House Keeper Relationship Specialty Start Date End Date Tee Montgomery PA-C [address] [place] [address] PCP - General Family Medicine 01/16/23 Sergei Lauren RN [address] [facility] [place] [address] Shoulder Boner [facility] 05/15/22 Joss House Keeper Relationship Specialty Start Date End Date Tee Montgomery PA-C [address] [place] [address] PCP - General Family Medicine 01/16/23 Sergei Lauren RN [address] [facility] [place] [address] Shoulder Boner Family [facility] 05/15/22 Joss House Keeper Relationship Specialty Start Date End Date Tee Montgomery PA-C [address] [place] [address] PCP - General Family Medicine 01/16/23 Sergei Lauren RN [address] [place] [address] Shoulder Boner Family [facility] 05/15/22 Joss House Keeper Relationship Specialty Start Date End Date Tee Montgomery PA-C [address] [place] [address] PCP - General Family Medicine 01/16/23 Sergei Lauren RN [address] [place] [address] Shoulder Boner Family [facility] 05/15/22 Joss House Keeper Relationship Specialty Start Date End Date Tee Montgomery PA-C [address] [place] [address] PCP - General Family Medicine 01/16/23 Sergei Lauren RN [address] [place] [address] Shoulder Boner [facility] 05/15/22 Joss House Keeper Relationship Specialty Start Date End Date Tee Montgomery PA-C [address] [place] [address] PCP - General Family Medicine 01/16/23 Sergei Lauren RN [address] [place] [address] Shoulder Boner Family [facility] 05/15/22 Joss House Keeper Relationship Specialty Start Date End Date Tee Montgomery PA-C [address] [place] [address] PCP - General Family Medicine 01/16/23 Sergei Lauren RN [address] [facility] [place] [address] Shoulder Boner Family Medicine 05/15/22 Joss House Keeper Relationship Specialty Start Date End Date Tee Montgomery PA-C [address] [place] [address] PCP - General Family Medicine 01/16/23 Sergei Lauren RN [address] [place] [address] Shoulder Boner [facility] 05/15/22 Joss House Keeper Relationship Specialty Start Date End Date Tee Montgomery PA-C [address] [place] [address] PCP - General Family Medicine 01/16/23 Sergei Lauren RN [address] [place] [address] Shoulder Boner [facility] 05/15/22 Joss House Keeper Relationship Specialty Start Date End Date Tee Montgomery PA-C [address] [place] [address] PCP - General Family Medicine 01/16/23 Sergei Lauren RN [address] [facility] [address] Shoulder Boner [facility] 05/15/22 Joss House Keeper Relationship Specialty Start Date End Date Tee Montgomery PA-C [address] [place] [address] PCP - General Family Medicine 01/16/23 Sergei Lauren RN [address] [place] [address] Shoulder Boner [facility] Medicine 05/15/22 Joss House Keeper Relationship Specialty Start Date End Date Tee Montgomery [address] [place] [address] PCP - General Physician Business English Instructor 01/28/23 Joss House Keeper Relationship Specialty Start Date End Date Tee Montgomery PA-C [address] [place] [address] PCP - General Family Medicine 01/16/23 Sergei Lauren RN [address] [place] [address] Shoulder Boner Family [facility] 05/15/22 Joss House Keeper Relationship Specialty Start Date End Date Tee Montgomery PA-C [address] [place] [address] PCP - General Family Medicine 01/16/23 Sergei Lauren RN [address] [place] [address] Shoulder Boner Family [facility] 05/15/22 Joss House Keeper Relationship Specialty Start Date End Date Tee Montgomery PA-C [address] [place] [address] PCP - General Family Medicine 01/16/23 Sergei Lauren RN [address] [place] [address] Shoulder Boner [facility] Medicine 05/15/22 Joss House Keeper Relationship Specialty Start Date End Date Tee Montgomery PA-C [address] [place] [address] PCP - General Family Medicine 01/16/23 Sergei Lauren RN [address] [place] [address] Shoulder Boner Family [facility] 05/15/22 Joss House Keeper Relationship Specialty Start Date End Date Tee Montgomery PA-C [address] [place] [address] PCP - General Family Medicine 01/16/23 Sergei Lauren RN [address] [place] [address] Shoulder Boner Family Medicine 05/15/22 Joss House Keeper Relationship Specialty Start Date End Date Tee Montgomery PA-C [address] [place] [address] PCP - General Family Medicine 01/16/23 Sergei Lauren, RN [address] [place] [address] Shoulder Boner Family [facility] 05/15/22 Joss House Keeper Relationship Specialty Start Date End Date Tee Montgomery PA-C [address] [place] [address] PCP - General Family Medicine 01/16/23 Sergei Lauren, RN [address] [place] [address] Shoulder Boner Family [facility] 05/15/22 Joss House Keeper Relationship Specialty Start Date End Date Tee Montgomery PA-C [address] [place] [address] PCP - General Family Medicine 01/16/23 Sergei Lauren RN [address] [place] [address] Shoulder Boner Family [facility] 05/15/22 Joss House Keeper Relationship Specialty Start Date End Date Tee Montgomery PA-C [address] [place] [address] PCP - General Family Medicine 01/16/23 Sergei Lauren RN [address] [place] [address] Shoulder Boner Family [facility] 05/15/22 Joss House Keeper Relationship Specialty Start Date End Date Tee Montgomery PA-C [address] [place] [address] PCP - General Family Medicine 01/16/23 Sergei Lauren RN [address] [facility], [place] [address] Shoulder Boner Family [facility] 05/15/22 Joss House Keeper Relationship Specialty Start Date End Date Bang Holland MD [address] [place] [address] PCP - General Family Medicine 03/25/13 01/15/23 Calista Vee RN [address] [place] [address] Shoulder Boner 03/14/2105/15/22 Joss House Keeper Relationship Specialty Start Date End Date Tee Montgomery PA-C [address] [place] [address] PCP - General Family Medicine 01/16/23 Sergei Lauren, RN [address] [place] [address] Shoulder Boner [facility] 05/15/22 Joss House Keeper Relationship Specialty Start Date End Date Tee Montgomery PA-C [address] [place] [address] PCP - General Family Medicine 01/16/23 Sergei Lauren, RN [address] [facility] [address] Shoulder Boner Family [facility] 05/15/22 Joss House Keeper Relationship Specialty Start Date End Date Tee Montgomery [address] [place] [address] PCP - General Physician Business English Instructor 01/28/23 Joss House Keeper Relationship Specialty Start Date End Date Pamela Montgomery PA-C [address] [place] [address] PCP - General Family Medicine 01/16/23 Sergei Lauren, RN [address] [facility], [place] [address] Shoulder Boner Family Medicine 05/15/22 Joss House Keeper Relationship Specialty Start Date End Date Pamela Montgomery PA-C [address] [place] [address] PCP - General Family Medicine 01/16/23 Sergei Lauren RN [address] [place] [address] Shoulder Boner [facility] 05/15/22 Gema Coleman, MOCK UP MAKER.STUDY LEAD [address] [place] [address] Botany Teacher [facility] 06/18/24 Nadia Brambila MOCK UP MAKER.STUDY LEAD [address] [place] [address] [facility] Joss House Keeper Relationship Specialty Start Date End Date Pamela Montgomery PA-C [address] [facility] [place] [address] PCP - General Family Medicine 01/16/23 Sergei Lauren RN [address] [place] [address] Shoulder Boner Family Medicine 05/15/22 Gema Coleman, MOCK UP MAKER.STUDY LEAD [address] [place] [address] Botany Teacher [facility] 06/18/24 Nadia Brambila, MOCK UP MAKER.STUDY LEAD [address] [place] [address] Botany Teacher [facility] 06/18/24 Joss House Keeper Relationship Specialty Start Date End Date Pamela Montgomery PA-C [address] [facility] [address] PCP - General Family Medicine 01/16/23 Sergei Lauren, RN [address] [place] [address] Shoulder Boner Family Medicine 05/15/22 Gema Coleman, MOCK UP MAKER.STUDY LEAD [address] [place] [address] Botany Teacher Family Medicine 06/18/24 Nadia Brambila MOCK UP MAKER.STUDY LEAD [address] [place] [address] Botany Teacher Family Medicine 06/18/24 Joss House Keeper Relationship Specialty Start Date End Date Pamela Montgomery PA-C PCP - General Family Medicine 01/16/23 Gema Coleman, MOCK UP MAKER.STUDY LEAD [address] [facility] [place] [address] Botany Teacher Family Medicine 06/18/24 Nadia Brambila MOCK UP MAKER.STUDY LEAD [address] [place] [address] Botany Teacher Family Medicine 06/18/24 Joss House Keeper Relationship Specialty Start Date End Date Pamela Montgomery PA-C PCP - General Family Medicine 01/16/23 Gema Coleman, MOCK UP MAKER.STUDY LEAD [address] [facility] [place] [address] Botany Teacher Family Medicine 06/18/24 Nadia Brambila MOCK UP MAKER.STUDY LEAD [address] [place] [address] Botany Teacher Family Medicine 06/18/24 Joss House Keeper Relationship Specialty Start Date End Date Pamela Montgomery PA-C PCP - General Family Medicine 01/16/23 eGma Coleman, MOCK UP MAKER.STUDY LEAD [address] [facility] [place] [address] Botany Teacher Family Medicine 06/18/24 Nadia Brambila MOCK UP MAKER.STUDY LEAD [address] [place] [address] Botany Teacher Family Medicine 06/18/24 Joss House Keeper Relationship Specialty Start Date End Date Nadia Brambila MOCK UP MAKER.STUDY LEAD [address] [place] [address] PCP - General Family Medicine 07/26/24 Gema Coleman, MOCK UP MAKER.STUDY LEAD [address] [place] [address] Botany Teacher Family Medicine 06/18/24 Nadia Brambila, MOCK UP MAKER.STUDY LEAD [address] [place] [address] Botany Teacher Family Medicine 06/18/24 Joss House Keeper Relationship Specialty Start Date End Date Nadia Brambila, MOCK UP MAKER.STUDY LEAD [address] [place] [address] PCP - General Family Medicine 07/26/24 Gema Coleman, MOCK UP MAKER.STUDY LEAD [address] [place] [address] Botany Teacher Family Medicine 06/18/24 Nadia Brambila, MOCK UP MAKER.STUDY LEAD [address] [place] [address] Botany Teacher Family Medicine 06/18/24 Joss House Keeper Relationship Specialty Start Date End Date Nadia Brambila MOCK UP MAKER.STUDY LEAD [address] [place] [address] PCP - General Family Medicine 07/26/24 Joss House Keeper Relationship Specialty Start Date End Date Nadia Brambila MOCK UP MAKER.STUDY LEAD [address] [place] [address] PCP - General Family Medicine 07/26/24 Joss House Keeper Relationship Specialty Start Date End Date Nadia Brambila, MOCK UP MAKER.STUDY LEAD [address] [place] [address] PCP - General Family Medicine 07/26/24 Joss House Keeper Relationship Specialty Start Date End Date Nadia Brambila, MOCK UP MAKER.STUDY LEAD [address] [place] [address] PCP - General Family Medicine 07/26/24 Joss House Keeper Relationship Specialty Start Date End Date Nadia Brambila, MOCK UP MAKER.STUDY LEAD [address] [place] [address] PCP - General Family Medicine 07/26/24 Joss House Keeper Relationship Specialty Start Date End Date Nadia Brambila, MOCK UP MAKER.STUDY LEAD [address] [place] [address] PCP - General Family Medicine 07/26/24 Joss House Keeper Relationship Specialty Start Date End Date Nadia Brambila, MOCK UP MAKER.STUDY LEAD [address] [place] [address] PCP - General Family Medicine 07/26/24 Joss House Keeper Relationship Specialty Start Date End Date Tee Montgomery [address] [place] [address] PCP - General Physician Business English Instructor 01/28/23 Joss House Keeper Relationship Specialty Start Date End Date Nadia Brambila, MOCK UP MAKER.STUDY LEAD [address] [place] [address] PCP - General Family Medicine 07/26/24 Joss House Keeper Relationship Specialty Start Date End Date Nadia Brambila APRN.STUDY LEAD [address] [place], [place] [address] PCP - General Family Medicine 07/26/24 Joss House Keeper Relationship Specialty Start Date End Date Nadia Brambila MOCK UP MAKER.STUDY LEAD [address] [place], [place] [id number] PCP - General Family Medicine 07/26/24 Reason for Visit (unrecogniz ed section and content) Reason Comments Radiology US Specialty Diagnoses / Procedures Referred By Bubba robles Referred To Contact US IMAGING Diagnoses Multiple thyroid nodules Procedures US THYROID/PARATHYROID US SOFT TISSUE HEAD & NECK REAL TIME IMGE DOCM Nadia Brambila APRN.STUDY LEAD [address] [place] [address] Phone: tel: fax: US IMAGING [id number] Referral ID Status Reason Start Date Expiration Date V isits Requested Visits Authorized [id number] Closed Auto-Generate d Referral 01/26/2025 02/24/2026 1 1 Reason Comments Established Patient 6 month follow up RL S and neuropathy- doing well with current regimen Reason Comments Skin Check YVROSE-05/12/2024,ZB Reason Onset Date Comments Refill Request 12/11/2024 Reason Comments Back Pain Low back pain Reason Comments Establish Care Suture Removal Right upper arm Reason Comments Established Patient Neuropathy, RLS Reason Onset Date Comments Refill Request 06/21/2024 Reason Onset Date Comments community monitoring outreach 06/17/2024 CD M-Telephonic outreach Reason Onset Date Comments community monitoring outreach 06/16/2024 CD M-Telephonic outreach Reason Onset Date Comments community monitoring outreach 05/19/2024 CD M-Telephonic outreach Reason Onset Date Comments community monitoring outreach 05/18/2024 CD M-Telephonic outreach Reason Onset Date Comments Refill Request 05/15/2024 Reason Comments Appointment Reason Comments New Patient New Patient lastt se en [facility] Neurology x2 yrs prior, c/o bilateral numbness feet, RLS. Specialty Diagnoses / Procedures Referred By Contsolo t Referred To Contact Neurology Diagnoses Restless leg Neuropathy of both feet Procedures CONSULT TO NEUROLOGY OFFICE/OUTPATIENT [facility] 60 MINUTES Tee Montgomery PA-C [address] [place] [address] Referral ID Status Reason Start Date Expiration Date V isits Requested Visits Authorized [id number] Closed PCP Requested Referral 09/25/2023 09/24/2024 1 1 Reason Comments Musculoskeletal Problem Right hand pain and swelling x1 day Reason Comments Laceration Right knee Follow Up [facility] Follow up Reason Comments skin tear right knee and left arm Fell 3 0 minutes ago Reason Onset Date Comments Refill Request 04/20/2024 Reason Onset Date Comments community monitoring outreach 04/20/2024 CD M-Telephonic outreach Reason Comments Hip Pain R hip x2 days Reason Onset Date Comments community monitoring outreach 03/19/2024 CD M-Telephonic outreach Reason Onset Date Comments community monitoring outreach 03/16/2024 CD M-Telephonic outreach Reason Comments Cough VALDIVIA, drainage x 1 day Reason Onset Date Comments community monitoring outreach 02/16/2024 CD M-Telephonic outreach Reason Onset Date Comments community monitoring outreach 01/19/2024 CD M-Telephonic outreach Reason Comments Established Patient COPD Reason Onset Date Comments community monitoring outreach 12/12/2023 CD M-Telephonic outreach Reason Comments Skin Lesion (LMS) Reason Onset Date Comments community monitoring outreach 11/10/2023 CD M-Telephonic outreach Reason Comments Follow Up Reason Comments GERD Edema B/l lower exrtremiti es Reason Comments Established Patient cough Reason Comments Results Reason Comments Cough Chest congestion, SO B, x 4 days Reason Onset Date Comments community monitoring outreach 04/22/2023 CD M-Telephonic outreach Reason Comments 6 Month Exam Results Mammogram today Ther e is no mammographic evidence of malignancy. Return to annual mammogram screening schedule is recommended. Reason Comments Wound Check Check up from urgent care for a wound of left lower leg. Reason Comments Edema Wound, LLE swelling redness, warmth x 2 days, hit leg 1.5 wks ago Reason Onset Date Comments community monitoring outreach 03/19/2023 CD M-Telephonic outreach Reason Comments FNA Left thyroid Reason Onset Date Comments community monitoring outreach 02/12/2023 CD M-Telephonic outreach Reason Comments Consult Thyroid nodule >1.5 cm diameter Specialty Diagnoses / Procedures Referred By Bubba robles Referred To Contact General Surgery Diagnoses Thyroid nodule greater than or equal to 1.5 cm in diameter incidentally noted on imaging study Procedures CONSULT TO GENERAL SURGERY OFFICE/OUTPATIENT [facility] MDM 60-74 MINUTES Tee Montgomery PA-C [address] [place] [address] Referral ID Status Reason Start Date Expiration Date V isits Requested Visits Authorized [id number] Closed PCP Requested Referral 01/30/2023 01/30/2024 1 1 Reason Comments Future Appointment Reason Comments Established Patient 6 month follow up [place] Reason Comments Spirometry Specialty Diagnoses / Procedures Referred By Bubba robles Referred To Contact [facility] Diagnoses 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) Procedures SPIROMETRY WITH DILATOR IF OBSTRUCTED BRNCDILAT RSPSE SPMTRY PRE&POST-BRNCDILAT Angelika Vincent MD [address] [place] [address] Respiratory [place] [address] [place] [id number] Referral ID Status Reason Start Date Expiration Date V isits Requested Visits Authorized [id number] Closed Auto-Generate d Referral 08/08/2022 09/07/2023 1 1 Reason Onset Date Comments Refill Request 01/29/2023 Reason Comments Actinic Keratosis (LMS) Reason Comments Rectal Problem 2 weeks Reason Comments PT Discharge Specialty Diagnoses / Procedures Referred By Bubba robles Referred To Contact [facility] Diagnoses Acute midline low back pain without sciatica Procedures CONSULT TO PHYSICAL THERAPY PHYSICAL THERAPY EVALUATION HIGH COMPLEX 45 MINS Tee Montgomery PA-C [address] [place] [address] [facility] [address] [address] Referral ID Status Reason Start Date Expiration Date Visits Requested Visits Authorized [id number] Authorized PCP Requested Referral Auto-Generate d Referral 10/30/2022 10/30/2023 99 99 Reason Onset Date Comments Population Health Navigation Outreach 11/19/2022 HAJA CORTEZ PCSA Reason Comments Physical Therapy Specialty Diagnoses / Procedures Referred By Contac t Referred To Contact [facility] Diagnoses Acute midline low back pain without sciatica Procedures CONSULT TO PHYSICAL THERAPY PHYSICAL THERAPY EVALUATION HIGH COMPLEX 45 MINS Tee Montgomery PA-C [address] [place] [address] [address] Referral ID Status Reason Start Date Expiration Date Visits Requested Visits Authorized [id number] Authorized PCP Requested Referral Auto-Generate d Referral 10/30/2022 10/30/2023 99 99 Reason Comments PT Eval Specialty Diagnoses / Procedures Referred By Contac t Referred To Contact [facility] Diagnoses Acute midline low back pain without sciatica Procedures CONSULT TO PHYSICAL THERAPY PHYSICAL THERAPY EVALUATION HIGH COMPLEX 45 MINS Tee Montgomery PA-C [address] [place] [address] [address] Referral ID Status Reason Start Date Expiration Date Visits Requested Visits Authorized [id number] Authorized PCP Requested Referral Auto-Generate d Referral 10/30/2022 10/30/2023 99 99 Reason Onset Date Comments community monitoring outreach 11/04/2022 CD M-Telephonic outreach Reason Comments Blood Pressure Check Reason Onset Date Comments community monitoring outreach 10/07/2022 CD M-Telephonic outreach Reason Onset Date Comments Refill Request 09/21/2022 Reason Comments UTI Hypertension Wound Check Right arm Reason Comments Trauma Cut right arm x 4 hr s Reason Onset Date Comments community monitoring outreach 09/03/2022 CD M-Telephonic outreach Reason Comments COPD Reason Onset Date Comments community monitoring outreach 08/02/2022 CD M-Telephonic outreach Reason Onset Date Comments community monitoring outreach 07/02/2022 CD M-Telephonic outreach Reason Comments Hypertension Medication follow up . Increased Amlodipine last month. Reason Onset Date Comments community monitoring outreach 05/30/2022 CD M telephonic outreach Reason Onset Date Comments Blood Pressure Check Immunizations 05/14/2022 Flu vaccination Reason Onset Date Comments Community Monitoring Outreach 04/25/2022 CD M Telephonic Reason Comments Wound Evaluation Reason Onset Date Comments Community Monitoring Outreach 04/04/2022 CD M Telephonic Reason Onset Date Comments Refill Request 03/29/2022 Reason Comments Discussion Reason Onset Date Comments Refill Request 2022 Reason Onset Date Comments Community Monitoring Outreach 03/14/2022 CD M Follow Up Reason Onset Date Comments Community Monitoring Outreach 03/12/2022 CD M Telephonic Follow Up Reason Comments Surgery Cancelled Reason Onset Date Comments Community Monitoring Outreach 01/30/2022 Te lephonic Follow Up Reason Onset Date Comments Community Monitoring Outreach 01/29/2022 Te lephonic Follow Up Reason Onset Date Comments Community Monitoring Outreach 01/15/2022 Te lephonic Follow Uo Reason Onset Date Comments Community Monitoring Outreach 01/01/2022 Te lephonic Follow Up Reason Onset Date Comments Community Monitoring Outreach 12/31/2021 Te lephonic Follow Up Reason Comments Patient Question breast imaging follo w-up Reason Onset Date Comments Community Monitoring Outreach 12/17/2021 Te lephonic Follow Up Reason Comments New Pain Specialty Diagnoses / Procedures Referred By Contac t Referred To Contact Orthopedics / ORTHOPAEDIC SURGERY Diagnoses left shoulder consult Procedures [facility] Italia Acevedo DO [address] [place] [address] [place] [address] [place] [address]. [address] [address] Referral ID Status Reason Start Date Expiration Date V isits Requested Visits Authorized [id number] Pending Review 12/14/2021 03/14/2022 1 1 Reason Onset Date Comments Community Monitoring Outreach 11/20/2021 Te lephonic Follow Up Reason Onset Date Comments Community Monitoring Outreach 11/19/2021 Te lephonic Follow Up Reason Comments Abdominal Pain Reason Onset Date Comments Community Monitoring Outreach 11/05/2021 Te lephonic Follow Up Reason Onset Date Comments Community Monitoring Outreach 10/23/2021 Te lephonic Follow Up Reason Onset Date Comments Community Monitoring Outreach 10/22/2021 CD M Telephonic Reason Comments Established Patient Pain Swelling Reason Comments Consult Goals (unrecognized section and content) Goals may be documented in a n alternate sectionGoals may be documented in an alternate section FOR RECORDS PERTAINING TO PATIENTS WHO ARE OR HAVE BEEN ENROLLED IN A CHEMICAL DEPENDENCY/SUBSTANCEABUSE PROGRAM, SOME INFORMATION MAY BE OMITTED. This clinical summary was aggregated from multiple sources. Caution should be exercised in using it in the provision of clinical care. This summary normalizes information from multiple sources, and as a consequence, information in this document may materially change the coding, format and clinical context of patient data. In addition, data may be omitted in some cases. CLINICAL DECISIONS SHOULD BE BASED ON THE PRIMARY CLINICAL RECORDS. [facility]. provides no warranty or guarantee of the accuracy or completeness of information in this document.
--- NOTE | 2025-02-05 23:50 | RAD_ITS ---
PROCEDURE: ELBOW MIN 3 VIEWS 02/05/2025 REASON FOR EXAM: INJURY TECHNIQUE: ELBOW MIN 3 VIEWS COMPARISON: No FINDINGS: No fracture, dislocation, or joint effusion. RAD/Elbow min 3 Views IMPRESSION: No acute findings Reading Location: [place] [address]
--- NOTE | 2025-02-06 00:21 | ED.VIS.FALL ---
HPI HPI - Fall History of Present Illness Chief Complaint: Fall Informant: patient and friend Narrative Narrative: Brought in by private vehicle with her friend mechanical fall prior to arrival. Was at a opera sitting for 3 hours. She was walking up a hill outside somehow stumbled falling down. She hit her head no loss of consciousness. Skin tear left elbow abrasion abrasions to the knee. She is able to ambulate. She does not take any blood thinners. Mild headache no neck or back pain. No chest pains. Tetanus less than 5 years ago. Tetanus Immunization: <5 years PFSH PFS Medical History History of skin cancer Gallstones COPD (chronic obstructive pulmonary disease) Cataract Arthritis Home Medications ?Medication ?Instructions ?Recorded ?Last Taken ?Type esomeprazole magnesium 20 mg 20 mg PO DAILY 09/29/17 Unknown History capsule,delayed release budesonide-formoterol HFA 160 2 puff inhalation BID 08/29/20 Unknown History mcg-4.5 mcg/actuation aerosol inhaler lisinopril 20 mg tablet 20 mg PO DAILY 08/29/20 Unknown History amlodipine 2.5 mg tablet 5 mg PO DAILY 06/18/22 Unknown History ropinirole 1 mg tablet 1 mg PO QHS #90 tabs 06/18/22 Unknown Rx Allergy/AdvReac Type Severity Reaction Status Date / Time ciprofloxacin (From Cipro) AdvReac Intermediate decreased Verified 02/05/25 23:02 muscle strength Surgical History History of reverse total replacement of left shoulder joint Status post right breast lumpectomy Social History Smoking Status: Former smoker Tobacco: How many years used: 20 how long ago did patient quit smokin years ago second hand exposure: Yes (Did smoke in the house) alcohol intake: current alcohol intake frequency: other details: social substance use type: does not use seatbelt use: always ROS ROS ED Constitutional Constitutional ED: Denies fever(s) Cardiovascular Cardiovascular: Denies chest pain Respiratory/Chest Respiratory/Chest: Denies cough Gastrointestinal Gastrointestinal: Denies diarrhea or vomiting Musculoskeletal Musculoskeletal: Reports other Details: No extremity pain. Integumentary Reports Abrasions and wounds; Denies rash Neurologic Neurologic: Denies weakness EXAM Physical Exam Const Vital Signs: 02/05/25 23:02 02/05/25 23:19 02/06/25 02:09 Temperature 98.0 F 98.1 F Temperature Source Oral Pulse Rate 87 87 Respiratory Rate 16 19 H Respiratory Effort Normal Non-Labored Respiratory Depth Normal Respiratory Pattern Normal Blood Pressure 211/88 H 203/64 H Blood Pressure Mean 129 110 Pulse Ox 97 99 Oxygen Delivery Method Room Air Room Air Positive well nourished and well developed General Appearance ED: well developed and NAD HEENT Reports moist mucous membranes HEENT Narrative: Hematoma left forehead golf ball size laterally. Skin was intact. normocephalic Eyes General Eye ED: Yes normal appearance of both eyes Neck full ROM Neck Narrative: No midline tenderness or step-offs. Chest Wall inspection of chest normal and palpation of chest normal Chest Narrative: No crepitus. Chest: Negative for tenderness Resp normal respiratory effort and normal air movement Resp Narrative: Symmetric breath sounds. Effort and Inspection: symmetric chest movement; Negative for respiratory distress Cardio regular rate, regular rhythm and no murmurs Peripheral Pulses: pulses 2+ throughout GI normal to inspection, nondistended, normoactive bowel sounds and non-tender Palpation: Negative for guarding or rebound tenderness present Back/Spine Back/Spine Narrative: No midline thoracic or lumbar tenderness. No step-offs. Extremity Extremity Narrative: Right upper extremity: Full range of motion soft compartments nontender. Left upper extremity: Full range of motion no tenderness along the elbow there was ecchymosis to the proximal forearm there were linear skin tears laterally both sides with no active bleeding. No deep lacerations. Soft compartments of the forearm. Skin tear also dorsal aspect of the hand between the 4th and 5th metacarpals, has no active bleeding. Pulse intact distally. Lower extremities: Negative logroll bilaterally. Mild abrasions patellar bilaterally no active bleeding no bony tenderness. No deformities. Soft compartments. Pulses intact distally. General Extremety ED: Negative for edema or tenderness General Extremity: Negative for edema Neuro oriented x3, CN's II-XII intact bilaterally and no sensory deficits noted Sensorium / Orientation: awake and alert Skin Skin Narrative: See above MDM MDM MDM Narrative Medical decision making narrative: Interventions / MDM: Differential diagnosis: Facial hematoma, fall, elbow contusion, skin tears, knee abrasions Diagnosis considered but do not suspect: Intracranial hemorrhage however CT negative. Cervical fracture however CT negative. Elbow fracture however x-ray negative. My EKG interpretation: N/A Imaging independently reviewed and interpreted by myself: CT brain/cervical spine: Soft tissue hematoma no intracranial hemorrhage no cervical fracture. Left elbow 3 views: No fracture noted. Also read by radiology. External documents reviewed: N/A Test considered but not ordered:N/A ED course: Mechanical fall multiple injuries facial hematoma. Ice was placed. She had area of elbow skin tear with contusion and full range of motion. Trauma scan head neck obtained. X-ray left elbow. Scans were negative image negative. Wound care per nursing as these are superficial tears with Xeroform dressing to the elbow. Steri-Strips to the hand. She is able to ambulate. She will use Tylenol as needed. Outpatient follow-up with her doctors. All questions were answered. Re-evaluation: stable Disposition discussed with patient/family/significant other: Patient and friend Case discussed with consulting clinician: N/A This note was generated with [employer] dictation software. It may contain incorrect words, spelling, and punctuation that were not noted in checking the note before signing. Radiography Diagnostic Testing: Clinical Impression(s) from Imaging Studies Brain CT 02/05/25 23:25 IMPRESSION: No acute intracranial findings [facility] 02/05/25 23:25 IMPRESSION: No acute injury Reading Location: [facility] Elbow X-Ray 02/05/25 23:50 IMPRESSION: No acute findings Reading Location: [facility] Discharge Plan Triage Chief Complaint: Fall ED Provider: Shoaib James Dx/Rx/DC Orders Clinical Impression: Fall, Contusion of face, Skin tear, Abrasion of knee, bilateral Instructions: Bruises (Contusions), ED Contusion, Elbow, ED Head Injury (Adult), ED Skin Tear (Skin Avulsion) Prescriptions: No Action lisinopril 20 mg tablet 20 mg PO DAILY amlodipine 2.5 mg tablet 5 mg PO DAILY ropinirole 1 mg tablet 1 mg PO QHS Qty: 90 2RF esomeprazole magnesium 20 MG capsule,delayed release(DR/EC) 20 mg PO DAILY budesonide-formoterol 160-4.5 mcg/actuation HFA aerosol inhaler 2 puff inhalation BID Rx Instructions: Take two puffs in the am and one in the pm Primary Care Provider: Nadia Martin Referrals: Nadia Martin, VETERINARY LIVESTOCK INSPECTOR [Primary Care Provider] - Activity Restrictions/Additional Instructions: CT brain and neck negative left elbow x-ray negative. Multiple skin tear area Steri-Strip and dressings. Daily wound care with dressing changes. Follow-up with your doctor. Print Language: Egyptian Disposition Disposition: Home, Self Care Discharge Date/Time: 02/06/25 02:09
[2025-02-06 02:09] VITALS: BP 203/64; PULSE 87; RESP 19; TEMP 36.7; O2SAT 99
--- NOTE | 2025-02-06 02:11 | ED.RN ---
Dr. James notified about BP. Pt to go home and take night time meds.
== END 2025-02-06 02:09 | disposition home or self-care (01) ==
PROVIDERS: Emergency Provider Emergency Medicine; PCP Clinical Nurse Specialist Adult Health; Visit Provider Emergency Medicine
DX: S00.83XA Contusion of other part of head, initial encounter (principal); J44.9 Chronic obstructive pulmonary disease, unspecified; Z87.891 Personal history of nicotine dependence; S80.211A Abrasion, right knee, initial encounter; S50.312A Abrasion of left elbow, initial encounter; S80.212A Abrasion, left knee, initial encounter; R51.9 Headache, unspecified; S51.012A Laceration without foreign body of left elbow, initial encounter; W19.XXXA Unspecified fall, initial encounter
CPT/HCPCS: 70450; 72125; 73080; 99282

== ENCOUNTER 2025-03-25 12:30 | Outpatient (RCR) | payer MEDICARE, OTHER, SELFPAY ==
--- NOTE | 2025-02-24 15:00 | HP.PTEVAL_ITS ---
Patient's Visit Information Visit Information Visit Information: MARSHALL WU is a 89 year old F referred to Physical Therapy by YULI Barboza with a diagnosis of Poor balance. Date of Evaluation: 02/24/25 Physical Therapist: Angel Salas, PT, ATC Visit Plan Frequency: 2x /Week Duration: 4-6 Weeks Plan: B LE strengthening, gait training, balance and proprio, nustep, and HEP Subjective Subjective: DOI: 02/05/25. Pt notes a friend and her went to the [employer] to enjoy a performance. Pt notes afterwards, she climbed a hill to get to her car so she could crab picker her friend. Pt notes when she got to the top of the hill, her foot slipped and she fell down, which resulted in facial and L UE lacerations. Pt notes she hit her head really hard. Pt went to the ER where she received a cat scan which revealed she didn't have a concussion. However, Pt notes she has felt very light headed since her fall and she feels very unsteady on her feet. Pt notes she was walking with no AD prior to her fall. Pt notes she has been ambulating with a walker since. Pt notes she is an avid golfer and is now not able to golf. Pt notes she has neuropathy, so her sensation is slightly diminished in her LE's. Pt reports she had just finished PT for her LBP and flet the best she had in a while prior to her fall. Pt reports her main goal is to get her confidence back so she can return to her premorbid level. No LE pain this date. Objective Objective: Neuro: B LE sensation is altered (it tingles) with light touch throughout. TU sec MMT: B LE's are weak when compared bilaterally in all motions being rated at 4- /5 ROM: B LE's are equal when compared bilaterally Gait: Goals Goal 1:: Increase B LE strength x 1 grade to aid with ambulation Goal Time Frame: 4-6 Weeks Goal 2:: Pt will be able to ambulate greater than 1000 feet with LRD to aid with I in community Goal Time Frame: 4-6 Weeks Goal 3:: Pt will perform TUG in under 12 seconds to aid with gait efficiency Goal Time Frame: 4-6 Weeks Goal 4:: I with HEP Goal Time Frame: 4-6 Weeks Rehabilitation Potential Physical Therapy Diagnosis: Pt has B LE weakness, unsteady gait, and a Hx of falls secondary to debilitation Rehabilitation Potential: Good Anticipated Interventions Patient/Client Instruction: Educate patient on: Condition and Plan of Care For the Purpose of:: To improve self management Therapeutic Exercise to Include: Strength training, Endurance training, Balance training and Gait and locomotor training For the Purpose of:: To improve muscle performance and motor function, To improve ability to perform ADL's and To increase tolerance to activity/condition/position Text: Thank you for the opportunity to evaluate your patient. For Medicare and Medicare HMO plans, please review the plan of care and approve it. It will need to be FAXED BACK to us at [phone] for Medicare purposes. For Medicare only, by signing this I certify the plan of care. Please let me know if there are questions or concerns regarding this plan of care. Physician Signature: Date:
--- NOTE | 2025-03-25 13:21 | HP.PTREVAL_ITS ---
Re-Evaluation Intro: Nadia Martin, RELEASE COORDINATOR, It has been my pleasure to treat MARSHALL WU over the last 9 visits for Poor balance. Please see the progress note below for an update on the physical therapy plan of care! Subjective Subjective: I am doing much better now Objective Objective/Function: TUG= 11.7 sec MMT: B LE's are strong and equal when compared bilaterally 5/5 Pt is able to ambulate greater than 1020 without difficulty Pt is I with HEP Plan Plan Plan: Recheck or discharge in one month. Pt to continue at this time with I gym routine. Balance/Gait/Functional tests Balance/Special Test Scores Lower Extremity Functional Score: 33 Goals Goals Goal 1:: Increase B LE strength x 1 grade to aid with ambulation Goal Time Frame: 4-6 Weeks Goal Progress: Goal Met Goal 2:: Pt will be able to ambulate greater than 1000 feet with LRD to aid with I in community Goal Time Frame: 4-6 Weeks Goal Progress: Goal Met Goal 3:: Pt will perform TUG in under 12 seconds to aid with gait efficiency Goal Time Frame: 4-6 Weeks Goal Progress: Goal Met Goal 4:: I with HEP Goal Time Frame: 4-6 Weeks Goal Progress: Goal Met Anticipated Interventions Anticipated Interventions Patient/Client Instruction: Educate patient on: Condition and Plan of Care For the Purpose of:: To improve self management Therapeutic Exercise to Include: Strength training, Endurance training, Balance training and Gait and locomotor training For the Purpose of:: To improve muscle performance and motor function, To improve ability to perform ADL's and To increase tolerance to activity/condition/position Re-Evaluation Ending Re-evaluation ending: Please do not hesitate to contact me at [phone] by phone or if you have questions or concerns regarding this new plan of care! Sincerely, Angel Salas, PT, ATC
--- NOTE | 2025-04-22 12:15 | HP.PTDCSUM_ITS ---
Discharge Summary D/C summary: It has been my pleasure to treat MARSHALL WU referred by Nadia Martin [employer]Y [employer]ADER, with the diagnosis of Poor balance for a total of 10 visit(s). Discharge Date: Please see the following information for a summary of their discharge status. Subjective Subjective: Pt reports no changes today. She is ready for discharge Overall Improvement % Improvement: 75 Objective Objective/Function: TUG= 11.7 sec MMT: B LE's are strong and equal when compared bilaterally 5/5 Pt is able to ambulate greater than 1020 without difficulty Pt is I with HEP Goals Goal 1:: Increase B LE strength x 1 grade to aid with ambulation Goal Progress: Goal Met Goal 2:: Pt will be able to ambulate greater than 1000 feet with LRD to aid with I in community Goal Progress: Goal Met Goal 3:: Pt will perform TUG in under 12 seconds to aid with gait efficiency Goal Progress: Goal Met Goal 4:: I with HEP Goal Progress: Goal Met Plan Plan: Discharge to I gym routine D/C Information d/c sentence: If there are questions or concerns regarding this patient's physical therapy, please feel free to call me at [phone]. Thank you for the referral of this patient. Sincerely, Angel Salas, PT, ATC Balance/Gait/Functional tests Balance/Special Test Scores Lower Extremity Functional Score: 33 Improvement % Improvement: 75
== END 2025-03-25 19:00 | disposition home or self-care (01) ==
LOC: PT 12:30
PROVIDERS: PCP Clinical Nurse Specialist Adult Health; Visit Provider Clinical Nurse Specialist Adult Health
DX: R26.9 Unspecified abnormalities of gait and mobility (principal)
CPT/HCPCS: 97110; 97161; 97530